=== PATIENT | male | born 1935 | race Caucasian/White ===

== ENCOUNTER 2023-12-12 17:34 | Inpatient (IN) | payer MEDICARE, SELFPAY ==
[2023-12-12 17:42] VITALS: BP 129/79; PULSE 62; RESP 14; TEMP 36.2; O2SAT 95; BMI 25.9
--- NOTE | 2023-12-12 18:56 | HP.PCM_ITS ---
HPI - General General Date of Admission: 12/12/23 Date of Service: 12/12/23 Chief Complaint: Here for rehabilitation. HPI Narrative GONZALEZ MENDIETA, is a 88 Male who presents with followin12/01/2023 [facility]. Transfer from [facility]. Fell 3 feet onto concrete, stepped in hole. On coumadin for chronic atrial fibrillation. C2 fracture, ondontoid fracture, sternal fracture. CTA neck negative for vascular injury. Pain control, bowel regimen. Consult Neurosurgery, hold coumadin in case of surgery. 12/09/2023 INR 5.4, Hold coumadin, follow INR. Pre-CERT for SNF. 12/10/2023 Right hand weakness 2/2 cervical collar. Hold coumadin. 12/11/2023 Right upper extremity weakness improving daily. MRI cervical spine showed impingement of dorsal aspect of cord with cord edema. Too high risk for surgery, treated with hard C collar ([employer] [place] J). Hold coumadin, monitor INR. Diet per ST. Pre-CERT for SNF. 12/12/2023 STAT CTA abdomen/pelvis with bilateral lower extremity runoff for cold bilateral lower extremities. CTA showed right femoral AV fistula. CTA showed left femoral/iliac veins chronic thrombus or mixing artifact. 12/12/2023 Admit to TCU with debility, here for rehabilitation, strengthening, prior to discharge home alone. [facility] Medical History (Updated 12/12/23 @ 19:[address] Nikolai Ceballos MD) Urinary retention Hypothyroidism Osteoporosis Hyperlipidemia Coronary artery disease Atrial fibrillation Mitral regurgitation Right arm weakness Sternal fracture Odontoid fracture Closed C2 fracture Fall Debility Home Medications ?Medication ?Instructions ?Recorded ?Last Taken ?Type Lactobacillus acidophilus 10 mg PO DAILY supplement 12/12/23 Unknown History (Acidophilus capsule) acetaminophen 325 mg tablet 650 mg PO Q6H pain 12/12/23 Unknown History alendronate 70 mg tablet 70 mg PO QWEEK bone health 12/12/23 Unknown History ascorbic acid (vitamin C) 500 mg 500 mg PO DAILY supplement 12/12/23 Unknown History capsule aspirin 81 mg chewable tablet 1 tab PO DAILY heart health 12/12/23 Unknown History calcium citrate 500 mg PO BID supplement 12/12/23 Unknown History cholecalciferol (vitamin D3) 25 25 mcg PO DAILY supplement 12/12/23 Unknown History mcg (1,000 unit) capsule dexamethasone 1 mg tablet 0.5 mg PO DAILY inflammation 12/12/23 Unknown History dexamethasone 2 mg tablet 2 mg PO BID inflammation 12/12/23 Unknown History dexamethasone 2 mg tablet 2 mg PO DAILY inflammation 12/12/23 Unknown History dexamethasone 2 mg tablet 4 mg PO BID inflamation 12/12/23 Unknown History dexamethasone 2 mg tablet 4 mg PO TID inflamation 12/12/23 Unknown History glucosamine sulfate 500 mg tablet 500 mg PO DAILY supplement 12/12/23 Unknown History (Glucosamine) multivitamin (Daily Multi-Vitamin 1 tab PO DAILY supplement 12/12/23 Unknown History tablet) oxycodone 5 mg tablet 5 mg PO Q6H PRN pain 1-10 12/12/23 Unknown History propafenone 225 mg tablet 225 mg PO TID AFIB 12/12/23 Unknown History saw palmetto 500 mg capsule 500 mg PO DAILY supplement 12/12/23 Unknown History simvastatin 10 mg tablet 5 mg PO QHS cholesterol 12/12/23 Unknown History turmeric 400 mg capsule 400 mg PO DAILY supplement 12/12/23 Unknown History vit C 250 mg-vit E 200 unit-zinc 2 cap PO BID supplement 12/12/23 Unknown History ox 12.5 oj-siewds-libyce-zeax capsule vitamin B complex (Vitamins B 1 cap PO DAILY supplement 12/12/23 Unknown History Complex capsule) vitamin E 100 unit capsule 201 mg PO DAILY supplement 12/12/23 Unknown History warfarin 4 mg tablet 4 mg PO DAILY AFIB 12/12/23 Unknown History Allergy/AdvReac Type Severity Reaction Status Date / Time Penicillins Allergy Mild Rash Verified 12/12/23 17:44 Family History (Updated 12/12/23 @ 19:[address] Nikolai Ceballos MD) Sister Cancer Brother CAD (coronary artery disease) Brother CAD (coronary artery disease) Brother Diabetes Brother CAD (coronary artery disease) Surgical History (Updated 12/12/23 @ 19:[address] Nikolai Ceballos MD) History of coronary angioplasty History of vasectomy History of cataract surgery History of resection of large bowel Social History (Updated 12/12/23 @ 19:[address] Nikolai Ceballos MD) household members: none Smoking Status: Never smoker alcohol intake: never substance use type: does not use ROS Constitutional Constitutional: Reports weakness; Denies chills, fever(s) or weight gain ENT HEENT: Denies headache(s), nasal congestion or nasal discharge Cardiovascular Cardiovascular: Denies chest pain or palpitations Respiratory/Chest Respiratory/Chest: Denies cough, excessive phlegm production or shortness of breath with exertion Gastrointestinal Gastrointestinal: Denies abdominal pain, nausea or vomiting Genitourinary Genitourinary: Denies dysuria Musculoskeletal Musculoskeletal: Denies joint pain or joint swelling Integumentary Integumentary: Denies rash or wounds Neurologic Neurologic: Denies focal weakness, numbness or tingling Psychiatric Psychiatric: Reports anxiety and depression; Denies auditory hallucinations, homicidal ideation or suicidal ideation Vital Signs Vital Signs Vital Signs: 12/12/23 17:42 Temperature 97.1 F L Temperature Source Temporal Pulse Rate 62 Respiratory Rate 14 Blood Pressure 129/79 H Blood Pressure Mean 95 Blood Pressure Source Monitor Pulse Ox 95 Oxygen Delivery Method Room Air Weight Weight: 82.1 kg Body Mass Index (BMI) 25.9 Physical Exam Const alert General Appearance: cooperative HEENT normocephalic Eyes PERRL and EOMs intact bilaterally Neck supple, no JVD and no carotid bruits Neck Narrative: [employer] [place] J Collar. Resp normal respiratory effort, normal air movement and clear to auscultation bilaterally Cardio regular rate and regular rhythm GI normal to inspection, nondistended, normoactive bowel sounds, non-tender and non-distended Bladder / Kidney Exam: catheter in place urethral Extremity normal capillary refill General Extremity: Negative for edema Skin no rashes or lesions noted General Skin Exam: no breakdown Psych affect normal Appearance: appropriate Assessment & Plan Assessment/Plan (1) Debility: (2) Fall: (3) Closed C2 fracture: (4) Odontoid fracture: (5) Sternal fracture: (6) Right arm weakness: (7) Mitral regurgitation: (8) Atrial fibrillation: (9) Coronary artery disease: (10) Hyperlipidemia: (11) Osteoporosis: (12) Hypothyroidism: (13) History of cataract surgery: (14) Urinary retention: PLAN: Plan 88 year old male with below past medical history hospitalized for C2 fracture, odontoid fracture, sternal fracture, treated non-surgically with [employer] J Collar, complicated by right upper extremity weakness, urinary retention requiring ghosh, admitted to TCU with debility, here for rehabilitation, strengthening, prior to discharge home alone. * Debility - PT/OT. * Dysphagia - ST. * Pain - Tylenol 650mg q6, Tramadol 50mg q6 prn pain (1-5), Oxycodone 5mg q4 prn pain (6-10). * Bowel - senna/colace 2 tablets bid, Magnesium citrate 300ml po daily prn. * Adult immunization - Administer pneumonia vaccine, covid vaccine, flu vaccine as appropriate. * DVT prophylaxis - on warfarin. * Osteoporosis - Alendronate 70mg qweek. * Vitamin C deficiency - Vitamin C 500mg daily. * Hyperlipidemia - Atorvastatin 5mg qhs. * Calcium deficiency - TUMS 500mg bidcm. * Vitamin D deficiency - D3 25mcg daily. * C2 fracture/odontoid fracture/cervical spinal cord impingement - Dexamethasone taper, [employer] J Collar. * GI prophylaxis - Lactobacillus 1 capsule daily * Nutrition - MVI 1 tablet daily. * Atrial fibrillation - Propafenone 225mg tid, Warfarin 4mg daily, monitor INR. * Macular degeneration - Healthy Eye 2 capsules bid. * Vitamin B deficiency - Vitamin B complex 1 tablet daily. * Vitamin E deficiency - Vitamin E 400IU daily. * BPH - Add Tamsulosin 0.4mg daily, indwelling ghosh catheter, voiding trials later.
[2023-12-12 19:45] VITALS: PULSE 58; RESP 18; O2SAT 95
[2023-12-12] MEDS: Acetaminophen 325 MG Tablet 650 MG PO (20:27)
[2023-12-12] MEDS: oxyCODONE 5 MG Tablet PO (20:27)
[2023-12-12] MEDS: Senna/Docusate Sodium 1 Tablet 2 TABLET PO (20:36)
[2023-12-12] MEDS: Propafenone 150 MG Tablet 225 MG PO (20:36)
[2023-12-12] MEDS: dexAMETHasone 4 MG Tablet PO (20:37)
[2023-12-12] MEDS: Atorvastatin Calcium 10 MG Tablet 5 MG PO (20:37)
[2023-12-12] MEDS: Menthol/Lanolin/Calamine/Znox 113 GM Tube 1 APPLIC TOPICAL (20:54)
[2023-12-12] MEDS: traMADol 50 MG Tablet PO (22:11)
[2023-12-13] MEDS: oxyCODONE 5 MG Tablet PO ×4 (03:59→20:24)
[2023-12-13] MEDS: Acetaminophen 325 MG Tablet 650 MG PO ×4 (03:59→21:37)
[2023-12-13 06:08] LABS: International Normalized Ratio 2.1; Prothrombin Time (Protime)PT. 23.8 SECONDS (11.7-14.9)
[2023-12-13] MEDS: dexAMETHasone 4 MG Tablet PO ×3 (06:18→21:39)
[2023-12-13] MEDS: Propafenone 150 MG Tablet 225 MG PO ×3 (06:18→21:38)
[2023-12-13] MEDS: Magnesium Citrate 300 ML PO (06:21)
--- NOTE | 2023-12-13 08:03 | PHA.CONS_ITS ---
Documented by User: Neetu Hines 12/13/23 08:55 TCU RX Drug Regimen Review Subjective/Objective Subjective/Objective: Subjective: TCU Admission. 88 YOM presented to outside hospital after a fall onto concrete. Hospitalized for C2 fracture, odontoid fracture, sternal frac ture, treated non-surgically with [place] J Collar, complicated by right upper extremity weakness, urinary retention requiring ghosh. Admitted to TCU with debility for strengthening and rehabilitation. Objective: Allergies Penicillins Allergy (Mild, Verified 12/12/23 17:44) Rash Current Medications Generic Name Dose Route Start Last Admin Trade Name Freq PRN Reason Stop Dose Admin Acetaminophen 650 mg 12/12/23 22:00 12/13/23 03:59 Acetaminophen 325 Mg Tablet PO 650 mg Q6H SYDNI Administration Alendronate Sodium 70 mg 12/17/23 06:00 Alendronate Sodium 70 Mg Tablet PO RITTER@0600 [facility] Ascorbic Acid 500 mg 12/13/23 08:00 Ascorbic [facility] 500 [facility] Atorvastatin Calcium 5 mg 12/12/23 22:00 12/12/23 20:37 Atorvastatin Calcium 10 Mg Tablet PO 5 mg QHS [facility] Administration Calamine/Phenol 1 applic 12/12/23 22:00 12/12/23 20:54 Menthol/Lanolin/Calamine/Znox 113 Gm Tube TOPICAL 1 applic BID [facility] Administration Protocol Calcium Carbonate 500 mg 12/13/23 08:00 Calcium Carbonate 500 [facility] Cholecalciferol 25 mcg 12/13/23 08:00 Cholecalciferol (Vit D3) 25 Mcg Tablet (1,000 Units) [facility] Dexamethasone 0.5 mg 12/20/23 08:00 Dexamethasone 0.5 Mg Tablet PO 12/21/23 08[facility] Dexamethasone 4 mg 12/12/23 22:00 12/13/23 06:18 Dexamethasone 4 Mg Tablet PO 12/13/23 22:01 4 mg TID SYDNI Administration Dexamethasone 4 mg 12/14/23 08:00 Dexamethasone 4 Mg Tablet PO 12/15/23 17:01 BIDCM [facility] Dexamethasone 2 mg 12/16/23 08:00 Dexamethasone 4 Mg Tablet PO 12/17/23 [facility] Dexamethasone 2 mg 12/18/23 08:00 Dexamethasone 4 Mg Tablet PO 12/19/23 08:[facility] Magnesium Citrate 300 ml 12/12/23 19:24 12/13/23 06:21 Magnesium Citrate 300 Ml PO 300 ml DAILY PRN Administration Constipation Multivitamins 1 tablet 12/13/23 08:00 Multivitamins,Therapeutic [facility] Multivitamins 1 cap 12/13/23 08:00 Vitamin B Comp W-C [facility]apsule [facility] Multivitamins/Minerals 1 cap 12/13/23 08:00 Multivitamin (Healthy Eyes) [facility]apsule [facility] Oxycodone HCl 5 mg 12/12/23 19:25 12/13/23 03:59 Oxycodone 5 Mg Tablet PO 5 mg Q4H PRN PRN Administration Pain Score 6-10 or Pre PT/OT Propafenone HCl 225 mg 12/12/23 22:00 12/13/23 06:18 Propafenone 150 Mg Tablet PO 225 mg TID [facility] Administration Senna/Docusate Sodium 2 tablet 12/12/23 22:00 12/12/23 20:36 Senna/Docusate Sodium 1 Tablet PO 2 tablet BID [facility] Administration Sodium Chloride 10 - 40 ml 12/12/23 17:52 0.9% Saline Lock 10 Ml Syringe IV UD PRN SALINE FLUSH Tamsulosin HCl 0.4 mg 12/13/23 17:30 Tamsulosin Hcl 0.4 Mg Capsule PO DAILY@1730 [facility] Tramadol HCl 50 mg 12/12/23 19:24 12/12/23 22:11 Tramadol 50 Mg Tablet PO 50 mg Q6H PRN PRN Administration Pain Score 1-5 or Pre PT/OT Tuberculin PPD 0.1 ml 12/13/23 10:00 Tuberculin,Purif.Prot.Deriv. 50 Tu/Ml Vial ID 12/13/23 10:01 X1 ONE Tuberculin PPD 0.1 ml 12/20/23 10:00 Tuberculin,Purif.Prot.Deriv. 50 Tu/Ml Vial ID 12/20/23 10:01 X1 ONE Vitamin E 400 units 12/13/23 08:00 Vitamin E 400 Units [facility] Warfarin Sodium 4 mg 12/13/23 17:00 Warfarin 4 Mg Tablet PO DINNER [facility] Problem List Urinary retention (Acute) History of cataract surgery (Acute) Hypothyroidism (Acute) Osteoporosis (Acute) Hyperlipidemia (Acute) Coronary artery disease (Acute) Atrial fibrillation (Acute) Mitral regurgitation (Acute) Right arm weakness (Acute) Sternal fracture (Acute) Odontoid fracture (Acute) Closed C2 fracture (Acute) Fall (Acute) Debility (Acute) Vital Signs Temp Pulse Resp BP Pulse Ox O2 Del Method 97.1 F L 58 L 18 129/79 H 95 Room Air 12/12/23 17:42 12/12/23 19:45 12/12/23 19:45 12/12/23 17:42 12/12/23 19:45 12/12/23 19:45 Oxygen Delivery Method Room Air Weight: 82.1 kg Body Mass Index (BMI) 25.9 Assessment/Plan: 1. Pain: acetaminophen 650mg PO Q6, tramadol 50mg PO Q6H PRN pain 1-5 and oxycodone 5mg PO Q4H PRN pain 6-10. Resident has had 1 dose of tramadol for pain score of 5 in the neck and 2 doses of oxycodone for pain scores of 6-7 in the neck. Please continue to monitor for increased pain, PRN usage, constipation, respiratory depression and renal function (no SCr at this time). 2. Bowel: senna/docusate 2T PO BID and magnesium citrate 300mL PO daily PRN constipation. Resident has had 1 dose of magnesium citrate. Last documented bowel movement was 12/06. Please continue to monitor for constipation and PRN usage. 3. C2 fractures/odontoid fracture/cervical spinal cord impingement: dexamethasone taper. Please continue to monitor glucose (none yet), S/S of infection, upset stomach, agitation and increased hunger. 4. Atrial fibrillation: propafenone 225mg PO TID and warfarin 4mg PO dinner. Please continue to monitor (BP 129/79), HR (last 58), S/S of bleeding, INR (last 2.1). 5. Osteoporosis: alendronate 70mg PO weekly. Please continue to monitor for GI side effects, jaw pain, renal function and BMD. Please administer first thing in the morning on an empty stomach with a full glass of water and remain upright for 30 minutes after dose. 6. Hyperlipidemia: atorvastatin 5mg PO QHS. Please consider ordering a lipid panel as there is no panel in the chart. Thanks. Please continue to monitor for muscle pain. 7. BPH: tamsulosin 0.4mg PO daily. Please continue to monitor BP. 8. GI prophylaxis/nutrition/macular degeneration: lactobacillus 1C PO daily, multivitamin 1T PO daily and healthy eye 1C PO BID. Please continue to monitor. 9. Calcium/vitamin C/D/B/E deficiencies: ascorbic acid 500mg PO daily, cholecalciferol 25mcg PO daily, calcium carbonate 500mg PO BIDCM, vitamin B complex 1T PO daily and vitamin E 400units PO daily. Please consider ordering a vitamin D level and calcium as there are no levels in the chart. Thanks. Assessment/Plan for indications treated with psychotropic medications: None Medical chart and medication regimen reviewed. The following medication irregularities or issues were identified: 1. Cholecalciferol 25mcg PO daily, calcium carbonate 500mg PO BIDCM. Please consider ordering a vitamin D level and calcium as there are no levels in the chart. Thanks. 2. Atorvastatin 5mg PO QHS. Please consider ordering a lipid panel as there is no panel in the chart. Thanks. Date Date of Note:: 12/13/23 Documented by User: Dr. Nikolai Ceballos MD 12/13/23 08:55 TCU RX Drug Regimen Review Provider Comments Provider responsibility Provider Comments to Recommendations by Pharmacy: Agree
[2023-12-13] MEDS: Multivitamin (Healthy Eyes) Capsule 1 CAP PO ×2 (08:14→17:44)
[2023-12-13] MEDS: Vitamin B Comp W-C Capsule 1 CAP PO (08:15)
[2023-12-13] MEDS: Cholecalciferol (VIT D3) 25 MCG TABLET (1,000 UNITS) PO (08:15)
[2023-12-13] MEDS: Lactobacillis Acidophilus 1 CAP PO (08:15)
[2023-12-13] MEDS: Multivitamins,Therapeutic Tablet 1 TABLET PO (08:15)
[2023-12-13] MEDS: Ascorbic Acid 500 MG Tablet PO (08:15)
[2023-12-13] MEDS: Calcium Carbonate 500 MG Tablet PO ×2 (08:15→17:44)
[2023-12-13] MEDS: Senna/Docusate Sodium 1 Tablet 2 TABLET PO ×2 (08:15→21:37)
[2023-12-13] MEDS: Vitamin E 400 UNITS Capsule PO (08:15)
[2023-12-13] MEDS: Menthol/Lanolin/Calamine/Znox 113 GM Tube 1 APPLIC TOPICAL ×2 (08:17→21:36)
[2023-12-13 08:26] VITALS: BP 115/87; PULSE 104; RESP 16; TEMP 36.1; O2SAT 93
[2023-12-13 08:53] LABS: Hematocrit 50.5 % (40-54); Hemoglobin 17.1 g/dL (13.0-16.5); Mean Corp Hgb Conc 33.9 g/dL (32-36); Mean Corpuscular Hgb 32.7 pg (27.0-32.0); Mean Corpuscular Volume 96.6 fL (80-94); Mean Platelet Vol. 10.7 fl (6.2-12.0); POSITIVE COUNT YES; POSITIVE DIFFERENTIAL YES; POSITIVE MORPHOLOGY YES; Platelet Count 274 K/mm3 (150-450); RBC Distribution Width CV 12.6 % (11.6-14.6); RBC Distribution Width SD 44.4 fl (35.1-43.9); Red Blood Count 5.23 M/mm3 (4.6-6.2); White Blood Count 24.3 K/mm3 (4.4-11.0)
[2023-12-13 08:54] LABS: Differential Indicated MANUAL DIFF
[2023-12-13 09:14] LABS: Anion Gap 8 (5-15); BUN 42 mg/dL (7-18); BUN/Creat Ratio 50.5 RATIO (10-20); Calcium,Total 9.1 mg/dL (8.5-10.1); Chloride 106 mmol/L (98-107); Creatinine, Serum 0.83 mg/dL (0.70-1.30); EST Glomerular Filtration Rate 93 mL/min (>60); Est Glom Filt Rate - Afr Amer 112 mL/min (>60); Estimated Creatinine Clearance 63.52 ml/min; Glucose 174 mg/dL (74-106); Potassium 4.7 mmol/L (3.5-5.1); Sodium Level 137 mmol/L (136-145)
[2023-12-13 09:40] LABS: Eosinophil 2 % (0-5); Lymphocyte 9 % (19-41); Metamyelocyte 2 % (0-1); Monocyte 6 % (0-10); Neutrophil-Band 1 % (0-5); Neutrophil-Segmented 80 % (47-70); Platelet Estimate ADEQUATE (ADEQ); Red Cell Morphology NORM C+C NORMAL (NORM C&C); Total Cells Counted 100 (MANUAL DIFF)
[2023-12-13 09:41] LABS: Absolute Neutrophil Count 19.7 X10^3/uL (2.0-7.7)
[2023-12-13] MEDS: Tuberculin,Purif.prot.deriv. 50 TU/ML Vial 0.1 ML ID (10:04)
[2023-12-13] MEDS: traMADol 50 MG Tablet PO ×2 (10:07→18:28)
--- NOTE | 2023-12-13 14:50 | NURSING ---
Field Service Poultry Technician Note; Activity Asset: Yordan Gomes is independent in his choice of daily activities. He has a smartphone he uses for music, reading the newspaper talking with family/friends and games. He at this time has a neck braces and has a harder time using it but will when feeling better. He welcomes visits from propagator laborer when available. Staff will remind him of weekly activities and respect his right to say no.
[2023-12-13] MEDS: Tamsulosin HCl 0.4 MG Capsule PO (17:44)
--- NOTE | 2023-12-13 20:37 | NURSING ---
Addendum entered by Lay Siddiqi 12/14/23 07:03: Dtr Salo reported patient was recently on palliative care but they weren't aggressive enough. Salo reported patient spouse 1 year ago. Original Note: daughter salo at bedside, patient c/o 12/13 neck pain, repositioned x2 staff assist to promote comfort, PRN Oxy for pain management per pt. request. Patient c/o abdominal distention and nausea, LBM 12/06, mag citrate ineffective. Per Dr. Tucker lucia enema x1
[2023-12-13] MEDS: Atorvastatin Calcium 10 MG Tablet 5 MG PO (21:38)
--- NOTE | 2023-12-13 21:50 | NURSING ---
Spoke w/ Dr. Ceballos via phone after resident had an xlg liquid brown emesis that appeared to be stomach contents along w/ the two small spoonfuls of crushed meds. Vitals obtained and recorded. In moderate distress. oriented x 3, drowsy. Rhonchi to lt base, rt base clear but diminished, b/l upper lobes clear anterior and posterior. Some belching and hiccups noted after emesis. Calixto cath to CD. Urine batsheva, clear. Abdomen firm, distended. Slightly hypoactive BS x 4 quads. Passed an xlg liquid and pasty stool after enema administered. New orders received and read back to repeat CBC w/ Diff, BMP, UA and C+S, repeat KUB, CXR PA and lat, NS at 75 ml/hr, Dilaudid 0.5mg IV every 2 hours PRN pain 1-10, and Phenergan 25 mg IV preferred but may give IM as system only permits IM, PO, and rectal routes. Will continue to monitor.
[2023-12-13 22:00] VITALS: PULSE 78; RESP 16; O2SAT 93
[2023-12-14] MEDS: oxyCODONE 5 MG Tablet PO ×2 (00:32→13:15)
[2023-12-14 01:38] LABS: Vitamin D,25 Hydroxy 39.3 ng/mL
[2023-12-14] MEDS: Acetaminophen 325 MG Tablet 650 MG PO ×3 (04:13→15:59)
[2023-12-14 04:20] VITALS: PULSE 77; RESP 18; O2SAT 95
[2023-12-14] MEDS: Propafenone 150 MG Tablet 225 MG PO ×2 (05:03→13:15)
--- NOTE | 2023-12-14 07:42 | RAD_ITS ---
EXAM: XR ABDOMEN, 1 VIEW CLINICAL INDICATION: Constipation. TECHNIQUE: Frontal supine view of the abdomen/pelvis. COMPARISON: No relevant prior studies available. FINDINGS: GASTROINTESTINAL TRACT: Prominent diffuse gaseous distention of the large and small bowel noted as well as moderate stool burden within the rectum and large bowel. Rectal impaction to be considered. ORGANS: No organomegaly. BONES/JOINTS: No acute abnormality. RAD/Abdomen Single View IMPRESSION: Question rectal impaction. Electronically Signed: Amilcar Theodore MD at 16:34 EDT ,
[2023-12-14 08:41] VITALS: BP 123/84; PULSE 75; RESP 16; TEMP 36; O2SAT 94
[2023-12-14] MEDS: Multivitamin (Healthy Eyes) Capsule 1 CAP PO ×2 (08:45→15:59)
[2023-12-14] MEDS: Vitamin B Comp W-C Capsule 1 CAP PO (08:45)
[2023-12-14] MEDS: Multivitamins,Therapeutic Tablet 1 TABLET PO (08:45)
[2023-12-14] MEDS: dexAMETHasone 4 MG Tablet PO ×2 (08:45→15:59)
[2023-12-14] MEDS: Cholecalciferol (VIT D3) 25 MCG TABLET (1,000 UNITS) PO (08:45)
[2023-12-14] MEDS: Calcium Carbonate 500 MG Tablet PO ×2 (08:46→15:59)
[2023-12-14] MEDS: Vitamin E 400 UNITS Capsule PO (08:46)
[2023-12-14] MEDS: Ascorbic Acid 500 MG Tablet PO (08:46)
[2023-12-14] MEDS: Senna/Docusate Sodium 1 Tablet 2 TABLET PO (08:46)
[2023-12-14] MEDS: Lactobacillis Acidophilus 1 CAP PO (08:46)
[2023-12-14] MEDS: traMADol 50 MG Tablet PO ×2 (08:51→16:02)
[2023-12-14] MEDS: Menthol/Lanolin/Calamine/Znox 113 GM Tube 1 APPLIC TOPICAL (08:51)
[2023-12-14] MEDS: Lactulose 20 GM/30 ML UDC 200 GM RC (10:28)
--- NOTE | 2023-12-14 10:56 | NURSING ---
Addendum entered by Kandy Weller 12/14/23 13:54: pt had xlg results liquid mixed with some pastey stool, pt assisted to BSC, has some more pt unable to tell if he is going. assisted to recliner chair, call light in reach. Original Note: pt given lactulose enema, tolerated some, approx 500cc of 700cc. pt was able to hold for approx 20 minutes. called out and placed pt on bedpan at this time.
[2023-12-14] MEDS: NYSTATIN 500,000 UNIT/5 ML UDC 500000 UNIT PO ×2 (11:22→16:00)
--- NOTE | 2023-12-14 13:34 | CASEMGMT ---
Social Work SW met with patient to complete initial assessment. Introduced self and role. Verified contacts. Confirmed code status as DNR-CCA, no intubation. SW requested dtr provide copies of advanced directives. Educated to [facility] insurance with NRD 12/17 and continued stay is not guaranteed with each review. Pt's goal is to return home, though likely will need an interim DC plan. SW will continue to follow for DC planning assistance. Eulalia Marin, RECLAMATION WORKER LUNG PULLER
[2023-12-14 13:55] LABS: Pathologist Review Reviewed
--- NOTE | 2023-12-14 15:31 | CASEMGMT ---
Social Work Nursing notified this worker that pt was asking about hospice services. SW spoke with pt at bedside. Pt resting in his chair, kept his eyes closed for the majority of the conversation. SW explored pt's feelings, goals of care and wishes. pt expressed being in a lot of pain and not sure how to navigate the pain or wanting to keep going through this. SW acknowledged the drastic change in medical and functional status from prior to the fall. Validated pt's feelings and the hardship with needing to rely on others for simple, daily tasks. Pt confirmed and repeated being in pain. SW referenced comment pt made during SW initial assessment of not wanting oxycodone to relieve pain. Pt stated he ended up having the nurse give him one, but it didn't help take all the pain away. SW offered to communicate to the Dr about additional interventions. pt replied that he does not want morphine. SW explored reasoning. Pt explained it made me crawl the ba last time, which was about 6 mos ago. SW discussed nonpharmacological interventions, such as pain or heat. Pt denied. SW to communicate with Dr on other options, but inquired to pt if pain is controlled, would he want to still discuss hospice. Pt stated it depends on how I feel. talk to my dtr. SW confirmed and offered to revisit with pt tomorrow after interventions are implemented. Assured pt this worker will assist in executing his wishes. Pt appreciative. SW inquired if pt enjoys listening to music. Pt confirmed and enjoys gospel or Spiritism music. SW offered to get CD player with music at his bedside, which may also help relax pt and distract him from the pain. Pt agreed. SW returned with CD player and turned on the music. Pt appreciative. SW phoned dtr, Hannah, to discuss above interaction. Dtr explained pt has not been able to move his bowels, which likely may be contributing to his discomfort. SW acknowledged nursing has been giving interventions to assist with moving his bowels. SW inquired about previous discussions for hospice. Dtr explained at [facility] the team discussed palliative vs hospice, but at that time pt was not ready for hospice and agreed to palliative. Dtr explained the hospital moved pt to their palliative floor' but dtr did not feel that unit provided any additional services for pt. Dtr unsure if an outpatient palliative referral was made or is following pt. Dtr noted that was about two weeks ago, acknowledged pt's condition has changed. Dtr stated pt is aware of what hospice services consist of, as his late- was on hospice. Dtr also discussed depression, though stated pt would never admit he is depressed. ELI acknowledged depression is common with such a change in his functional abilities and considering all of the loss he experienced over the last year. Dtr did confirm pt has been attending the [facility] and was doing well overall prior to the fall. ELI explained this worker will follow up with pt tomorrow after interventions have been implemented to see what pt's wishes are at that time, and will discuss depression with pt further. Dtr appreciative. ELI left written communication for Dr. BENITEZ will continue to follow. VINI SherW
[2023-12-14] MEDS: Tamsulosin HCl 0.4 MG Capsule PO (15:59)
[2023-12-14] MEDS: SimETHICONE 80 MG Chewable Tablet PO (18:37)
--- NOTE | 2023-12-14 19:38 | NURSING ---
dr parkinson noitified of uncontrolled pain & lactulose enema results. new orders for oxyir 10mg, tylenol increased, simethicone added. PRN ativan for restlessness/anxiety
[2023-12-14 21:45] VITALS: BP 135/98; PULSE 66; RESP 16; TEMP 36.3; O2SAT 93
--- NOTE | 2023-12-14 21:56 | RAD_ITS ---
STUDY: X-RAY CHEST REASON FOR EXAM: Male, 88 years old. Adventitious lung sounds, emesis TECHNIQUE: Frontal and lateral views of the chest. COMPARISON: None. FINDINGS: The lungs are clear and expanded. There is no demonstrated pleural abnormality. Normal size heart. Normal mediastinum and alberto. Normal visualized pulmonary arteries. Normal visualized aortic arch and descending thoracic aorta. There are diffuse degenerative changes of the visualized thoracic spine. Normal visualized ribs, clavicles, and shoulders. There is no demonstrated abnormality of the visualized soft tissue structures of the upper abdomen. RAD/Chest PA and Lateral IMPRESSION: Normal x-ray examination of the chest. Electronically Signed: Bhavik Pacheco MD at 23:12 EDT ,
--- NOTE | 2023-12-14 21:57 | RAD_ITS ---
STUDY: X-RAY - ABDOMEN/PELVIS REASON FOR EXAM: Male, 88 years old. Possible rectal impaction, emesis TECHNIQUE: Single AP view of the abdomen / pelvis. COMPARISON: None. FINDINGS: Normal visualized lung bases. There is gaseous distention of the colon, most compatible with a colonic ileus. No significant fecal retention. There is no demonstrated free abdominal air. The visualized liver, spleen and kidneys are grossly normal in size and morphology. Normal soft tissue structures. Normal visualized osseous structures. RAD/Abdomen Single View IMPRESSION: Findings most consistent with severe colonic ileus. Electronically Signed: Bhavik Pacheco MD at 23:08 EDT ,
[2023-12-14 22:18] LABS: Absolute Lymphocyte Count 0.91 X10^3/uL (0.83-4.51); Absolute Neutrophil Count 21.7 X10^3/uL (2.0-7.7); Basophil# 0.14 X10^3/uL; Basophil% 0.6 % (0-1); Hematocrit 50.4 % (40-54); Hemoglobin 16.9 g/dL (13.0-16.5); Lymphocyte # 0.91 X10^3/ul (0.83-4.51); Lymphocyte % 3.6 % (19-41); Mean Corp Hgb Conc 33.5 g/dL (32-36); Mean Corpuscular Hgb 31.9 pg (27.0-32.0); Mean Corpuscular Volume 95.3 fL (80-94); Monocyte# 1.49 X10^3/uL; Monocyte% 5.9 % (0-10); NRBC Flagged by Analyzer 0 % (0-5); Neutrophil # 21.67 X10^3/uL (2.7-7.7); Neutrophil % 85.8 % (47-70); POSITIVE DIFFERENTIAL YES; Platelet Count 278 K/mm3 (150-450); RBC Distribution Width CV 12.5 % (11.6-14.6); RBC Distribution Width SD 43.1 fl (35.1-43.9); Red Blood Count 5.29 M/mm3 (4.6-6.2); White Blood Count 25.2 K/mm3 (4.4-11.0)
[2023-12-14 22:21] LABS: Differential Indicated SCAN CRITERIA MET
[2023-12-14 22:38] LABS: Anion Gap 10 (5-15); BUN 43 mg/dL (7-18); BUN/Creat Ratio 44.2 RATIO (10-20); Calcium,Total 9.5 mg/dL (8.5-10.1); Chloride 101 mmol/L (98-107); Creatinine, Serum 0.97 mg/dL (0.70-1.30); EST Glomerular Filtration Rate 77 mL/min (>60); Est Glom Filt Rate - Afr Amer 94 mL/min (>60); Estimated Creatinine Clearance 54.35 ml/min; Glucose 225 mg/dL (74-106); Potassium 5.1 mmol/L (3.5-5.1); Sodium Level 133 mmol/L (136-145)
[2023-12-14 23:04] LABS: Squamous Epithelial Cells - UA 0 SEEN /hpf (0-5)
[2023-12-14 23:04] LABS: Differential Comment SCANNED
[2023-12-14] MEDS: 0.9% Normal Saline (1000mL) 1,000 ML 75 ML IV (23:10)
[2023-12-14 23:14] LABS: Color, Urine Red (Yellow); Glucose, Dipstick Normal (Normal); Ketone-Dipstick 5 mg/dl (Negative); Leukocyte Esterase-Dipstick 500 /ul (Negative); Nitrite-Dipstick Positive (Negative); Occult Blood-Urine 250 /ul (Negative); Protein-Dipstick 100 mg/dl (Negative); Specific Gravity, Urine 1.025 (1.002-1.030); Urine Bilirubin Dipstick Negative (Negative); Urine Clarity Cloudy (Clear); Urine Urobilinogen 4 mg/dl (Normal)
[2023-12-14 23:23] LABS: Bacteria 1+ /hpf (None Seen); Mucous, Urine 1+ /hpf (<or=2+); Red Blood Cells-Urine 25-50 SEEN /hpf (0-5); Transitional Epithelial - Ur 0-5 SEEN /hpf (0-5); White Blood Cells 25-50 SEEN /hpf (0-5)
--- NOTE | 2023-12-14 23:25 | NURSING ---
Spoke w/ Dr. Ceballos via phone to update on results of KUB, CXR, and informed that UA had several significant abnormalities. New order received and read back to send resident to ED. Phone call placed to ED and report given to BOB Frias. [id number]: Phone call placed to daughter, Hannah, and received identifiable vm. Left vm to contact TCU and given contact info. No specific medical information provided in vm.
--- NOTE | 2023-12-14 23:44 | NURSING ---
Secure Backline message sent to [employer] and GABRIELA Ferrari, to update on transfer to ED.
--- NOTE | 2023-12-15 07:44 | DS.PCM_ITS ---
Providers Date of Admission: 12/12/23 Primary Care Physician: Dr. Rayo Lanza MD Consultations 12/13/23 07:23 Consult: Vascular Surgery Routine Consulting Provider: Coretta Gomez Reason for Consult: Right femoral AV fistula. EMERGENT Consult: No MD Notified: Yes Date Notified: 12/13/23 Time Notified: 07:23 Method of Notification: Verbal Reason For Visit: FALL, CERVICAL FX, STERNAL FX Diagnosis Discharge Diagnosis (1) Debility: Status: Acute Code(s): R53.81 - Other malaise (2) Fall: Status: Acute Code(s): W19.XXXA - Unspecified fall, initial encounter (3) Closed C2 fracture: Status: Acute Code(s): S12.100A - Unspecified displaced fracture of second cervical vertebra, initial encounter for closed fracture (4) Odontoid fracture: Status: Acute Code(s): S12.110A - Anterior displaced Type II dens fracture, initial encounter for closed fracture (5) Sternal fracture: Status: Acute Code(s): S22.20XA - Unspecified fracture of sternum, initial encounter for closed fracture (6) Right arm weakness: Status: Acute Code(s): R29.898 - Other symptoms and signs involving the musculoskeletal system (7) Mitral regurgitation: Status: Acute Code(s): I34.0 - Nonrheumatic mitral (valve) insufficiency (8) Atrial fibrillation: Status: Acute Code(s): I48.91 - Unspecified atrial fibrillation (9) Coronary artery disease: Status: Acute Code(s): I25.10 - Atherosclerotic heart disease of [place] coronary artery without angina pectoris (10) Hyperlipidemia: Status: Acute Code(s): E78.5 - Hyperlipidemia, unspecified (11) Osteoporosis: Status: Acute Code(s): M81.0 - Age-related osteoporosis without current pathological fracture (12) Hypothyroidism: Status: Acute Code(s): E03.9 - Hypothyroidism, unspecified (13) History of cataract surgery: Status: Acute Code(s): Z98.49 - Cataract extraction status, unspecified eye (14) Urinary retention: Status: Acute Code(s): R33.9 - Retention of urine, unspecified Plan 88 year old male with below past medical history hospitalized for C2 fracture, odontoid fracture, sternal fracture, treated non-surgically with [place] Collar, complicated by right upper extremity weakness, urinary retention requiring ghosh, admitted to TCU with debility, here for rehabilitation, strengthening, prior to discharge home alone. * Debility - PT/OT. * Dysphagia - ST. * Pain - Tylenol 650mg q6, Tramadol 50mg q6 prn pain (1-5), Oxycodone 5mg q4 prn pain (6-10). * Bowel - senna/colace 2 tablets bid, Magnesium citrate 300ml po daily prn. * Adult immunization - Administer pneumonia vaccine, covid vaccine, flu vaccine as appropriate. * DVT prophylaxis - on warfarin. * Osteoporosis - Alendronate 70mg qweek. * Vitamin C deficiency - Vitamin C 500mg daily. * Hyperlipidemia - Atorvastatin 5mg qhs. * Calcium deficiency - TUMS 500mg bidcm. * Vitamin D deficiency - D3 25mcg daily. * C2 fracture/odontoid fracture/cervical spinal cord impingement - Dexamethasone taper, [place] Collar. * GI prophylaxis - Lactobacillus 1 capsule daily * Nutrition - MVI 1 tablet daily. * Atrial fibrillation - Propafenone 225mg tid, Warfarin 4mg daily, monitor INR. * Macular degeneration - Healthy Eye 2 capsules bid. * Vitamin B deficiency - Vitamin B complex 1 tablet daily. * Vitamin E deficiency - Vitamin E 400IU daily. * BPH - Add Tamsulosin 0.4mg daily, indwelling ghosh catheter, voiding trials later. Medications at Discharge Home Medications Lactobacillus acidophilus (Acidophilus capsule) 10 mg PO DAILY supplement 12/12/23 acetaminophen 325 mg tablet 650 mg PO Q6H pain 12/12/23 alendronate 70 mg tablet 70 mg PO QWEEK bone health 12/12/23 ascorbic acid (vitamin C) 500 mg capsule 500 mg PO DAILY supplement 12/12/23 aspirin 81 mg chewable tablet 1 tab PO DAILY heart health 12/12/23 calcium citrate 500 mg PO BID supplement 12/12/23 cholecalciferol (vitamin D3) 25 mcg (1,000 unit) capsule 25 mcg PO DAILY supplement 12/12/23 dexamethasone 1 mg tablet 0.5 mg PO DAILY inflammation 12/12/23 dexamethasone 2 mg tablet 2 mg PO BID inflammation 12/12/23 dexamethasone 2 mg tablet 2 mg PO DAILY inflammation 12/12/23 dexamethasone 2 mg tablet 4 mg PO BID inflamation 12/12/23 dexamethasone 2 mg tablet 4 mg PO TID inflamation 12/12/23 glucosamine sulfate 500 mg tablet (Glucosamine) 500 mg PO DAILY supplement 12/12/23 multivitamin (Daily Multi-Vitamin tablet) 1 tab PO DAILY supplement 12/12/23 oxycodone 5 mg tablet 5 mg PO Q6H PRN pain 1-10 12/12/23 propafenone 225 mg tablet 225 mg PO TID AFIB 12/12/23 saw palmetto 500 mg capsule 500 mg PO DAILY supplement 12/12/23 simvastatin 10 mg tablet 5 mg PO QHS cholesterol 12/12/23 turmeric 400 mg capsule 400 mg PO DAILY supplement 12/12/23 vit C 250 mg-vit E 200 unit-zinc ox 12.5 on-kjleqz-kjfeyx-zeax capsule 2 cap PO BID supplement 12/12/23 vitamin B complex (Vitamins B Complex capsule) 1 cap PO DAILY supplement 12/12/23 vitamin E 100 unit capsule 201 mg PO DAILY supplement 12/12/23 warfarin 4 mg tablet 4 mg PO DAILY AFIB 12/12/23 Hospital Course Operations None Procedures None Summary of Care Provided Minutes Spent on Discharge: 15 Hospital Course: 88 year old male with below past medical history hospitalized for C2 fracture, odontoid fracture, sternal fracture, treated non-surgically with [place] Collar, complicated by right upper extremity weakness, urinary retention requiring ghosh, admitted to TCU with debility, here for rehabilitation, strengthening, prior to discharge home alone. 12/14/2023 Resident with nausea, vomiting, abdominal distention, constipation. Failed Soap suds enema, Failed Lactulose enema. 12/14/2023 X-ray showed ileus. Discharge to [facility] ED 12/14/2023 for evaluation. Weight / BMI Weight Weight: 82.1 kg Body Mass Index (BMI) 25.9 ABG / Lab / Microbiology Data 12/14/23 22:10 12/14/23 22:10 Laboratory: Laboratory Results - last 24 hr 12/13/23 08:43: Diff Path Review Reviewed 12/14/23 22:10: WBC 25.2 H, RBC 5.29, Hgb 16.9 H, Hct 50.4, MCV 95.3 H, MCH 31.9, MCHC 33.5, RDW Std Deviation 43.1, RDW Coeff of Isabel 12.5, Plt Count 278, MPV 11.0, Immature Gran % (Auto) 4.100 H, Neut % (Auto) 85.8 H, Lymph % (Auto) 3.6 L, [place] % (Auto) 5.9, Eos % (Auto) 0.0, Baso % (Auto) 0.6, Absolute Neuts (auto) 21.7 H, Absolute Lymphs (auto) 0.91, Nucleated RBC % 0, Differential Comment SCANNED, Sodium 133 L, Potassium 5.1, Chloride 101, Carbon Dioxide 22.0, Anion Gap 10, BUN 43 H, Creatinine 0.97, Estim Creat Clear Calc 54.35, Est GFR (MDRD) Af Amer 94, Est GFR (MDRD) Non-Af 77, BUN/Creatinine Ratio 44.2 H, G lucose 225 H, Calcium 9.5 12/14/23 : Urine Color Red, Urine Clarity Cloudy, Urine pH 5.0, Ur Specific [place] 1.025, Urine Protein 100 H, Urine Glucose (UA) Normal, Urine Ketones 5 H , Urine Occult Blood 250 H, Urine Nitrite Positive H, Urine Bilirubin Negative, Urine Urobilinogen 4 H, Ur Leukocyte Esterase 500 H, Urine RBC 25-50 SEEN, Urine WBC 25-50 SEEN, Ur Squamous Epith Cells 0 SEEN, Ur Transition Epith Cell 0-5 SEEN, Urine Bacteria 1+, Urine Mucus 1+ Radiography Diagnostic Testing: Radiology Impression KUB X-Ray 12/14/23 07:42 IMPRESSION: Question rectal impaction. Electronically Signed: Amilcar Theodore MD at 16:34 EDT , Chest X-Ray 12/14/23 21:56 IMPRESSION: Normal x-ray examination of the chest. Electronically Signed: Bhavik Pacheco MD at 23:12 EDT , KUB X-Ray 12/14/23 21:57 IMPRESSION: Findings most consistent with severe colonic ileus. Electronically Signed: Bhavik Pacheco MD at 23:08 EDT , D/C Instructions Discharge Diet: No restrictions Discharge Activity: Return to Normal Activity Weight Bearing Status: Weight bearing as tolerated Call your doctor if you observe: Fever of 101 or Higher, Inability to urinate, Inability to have a bowel movement, Shortness of breath, Dizziness, Fainting spells, Swelling in the ankles, Chest pain and Uncontrolled pain Additional Instructions: Discharge to [facility] ED 12/14/2023 for evaluation. Please Follow Up With: Dr Coles Meaningful Use Info Meaningful Use Meaningful Use Diagnoses (Choose all that apply): None applicable Ischemic Stroke Statin Dosing Therapy Reference: STATIN DOSE THERAPY REFERENCE: * Patients > 75 years receive moderate or high dose statin therapy. * Patients 75 years or YOUNGER should receive HIGH intensity statin dose unless contraindicated. You will be required to document reason for non-treatment if statin daily dose does not meet guidelines. HIGH DOSE STATIN THERAPY DAILY Atorvastatin > than or = to 40 mg Rosuvastatin > than or = to 20 mg Amlodipine + Atorvastatin > than or = to 2.5/40 mg Ezetimibe + Simvastatin 10/80 mg Simvastatin 80mg Discharge Plan Admission Admit Date/Time: 12/12/23 17:34 Primary Reason for Your Visit: Debility. Attending Provider: Nikolai Ceballos Chi Primary Care Provider: Rayo Lanza Consulting Providers: Coretta Gomez Instructions Additional Instructions / Restrictions: Discharge to [facility] ED 12/14/2023 for evaluation. Discharge Orders/Prescriptions Prescriptions: No Action alendronate 70 mg tablet 70 mg PO QWEEK acetaminophen 325 mg tablet 650 mg PO Q6H dexamethasone 2 mg tablet 4 mg PO TID dexamethasone 2 mg tablet 4 mg PO BID dexamethasone 2 mg tablet 2 mg PO BID dexamethasone 2 mg tablet 2 mg PO DAILY dexamethasone 1 mg tablet 0.5 mg PO DAILY oxycodone 5 mg tablet 5 mg PO Q6H PRN (Reason: pain 1-10) warfarin 4 mg tablet 4 mg PO DAILY ascorbic acid (vitamin C) 500 mg capsule 500 mg PO DAILY glucosamine sulfate [Glucosamine] 500 mg tablet 500 mg PO DAILY Rx Instructions: administer with a meal aspirin 81 mg tablet,chewable 1 tab PO DAILY calcium citrate 250 mg calcium tablet 500 mg PO BID cholecalciferol (vitamin D3) 25 mcg (1,000 unit) capsule 25 mcg PO DAILY saw palmetto 500 mg capsule 500 mg PO DAILY Rx Instructions: give with food (meal/snack) turmeric 400 mg capsule 400 mg PO DAILY Acidophilus Capsule 10 mg PO DAILY vitamin B complex [Vitamins B Complex] Capsule 1 cap PO DAILY multivitamin [Daily Multi-Vitamin] Tablet 1 tab PO DAILY vit C-E-zinc qt-qwky-ghh-zeax 250 mg-200 unit -12.5 mg-1 mg capsule 2 cap PO BID propafenone 225 mg tablet 225 mg PO TID simvastatin 10 mg tablet 5 mg PO QHS vitamin E 100 unit capsule 201 mg PO DAILY Referrals / Follow Up: Rayo Lanza MD [Primary Care Provider] - Disposition Disposition (needs filled in before D/C Order can be placed): Acute Care Hospital [facility]
--- NOTE | 2023-12-22 08:30 | MDS.RN ---
Information for the MDS was obtained from review of the clinical record, interview of resident, staff, and direct observation of resident?s care.
== END 2023-12-14 23:45 | disposition short-term general hospital (02) | DRG 560 ==
PROVIDERS: Admitting Provider Family Medicine Geriatric Medicine; Referring Provider Family Medicine Geriatric Medicine; Visit Provider Family Medicine Geriatric Medicine
DX: M80.08XD Age-related osteoporosis with current pathological fracture, vertebra(e), subsequent encounter for fracture with routine healing (principal); E44.1 Mild protein-calorie malnutrition; K56.7 Ileus, unspecified; B37.9 Candidiasis, unspecified; E03.9 Hypothyroidism, unspecified; I25.10 Atherosclerotic heart disease of native coronary artery without angina pectoris; I48.91 Unspecified atrial fibrillation; S14.0XXD Concussion and edema of cervical spinal cord, subsequent encounter; E78.5 Hyperlipidemia, unspecified; E55.9 Vitamin D deficiency, unspecified; H35.30 Unspecified macular degeneration; W17.2XXD Fall into hole, subsequent encounter; F41.9 Anxiety disorder, unspecified; Z79.82 Long term (current) use of aspirin; R29.898 Other symptoms and signs involving the musculoskeletal system; M81.0 Age-related osteoporosis without current pathological fracture; R33.8 Other retention of urine; N40.1 Benign prostatic hyperplasia with lower urinary tract symptoms; Z79.899 Other long term (current) drug therapy; Z79.01 Long term (current) use of anticoagulants; Z68.25 Body mass index [BMI] 25.0-25.9, adult; M80.0AXD Age-related osteoporosis with current pathological fracture, other site, subsequent encounter for fracture with routine healing
CPT/HCPCS: 36415; 71046; 74018; 80048; 81001; 82306; 85025; 85610; 87077; 87086; 87088; 87186; 92526; 92610; 97110; 97116; 97162; 97166; 97530; 97535; 97802; J7030

== ENCOUNTER 2023-12-14 23:50 | Inpatient (IN) | payer MEDICARE, SELFPAY ==
[2023-12-14 23:50] VITALS: BP 137/95; PULSE 93; RESP 20; TEMP 36.5; O2SAT 92; BMI 27.3
[2023-12-15] VITALS (16 sets, daily range): BP systolic 96–151; BP diastolic 56–94; PULSE 63–83; RESP 16–18; TEMP 36.2–37; O2SAT 88–94; BMI 25.7
--- NOTE | 2023-12-15 00:01 | CT_ITS ---
EXAM: CT ABDOMEN AND PELVIS WITH INTRAVENOUS CONTRAST CLINICAL INDICATION: bowel obstruction TECHNIQUE: Helically acquired images were obtained of the abdomen and pelvis with intravenous contrast. This CT exam was performed using one or more of the following dose reduction techniques: automated exposure control, adjustment of the mA and/or kV according to patient size, and/or use of iterative reconstruction technique. CONTRAST: IV 100mL [id number] RADIATION DOSE: Total DLP: 1393.29 mGy-cm. COMPARISON: Abdominal radiograph of this same date. CTA abdomen and pelvis of 12/12/2023. FINDINGS: LOWER THORAX: Interval development of asymmetric groundglass opacities within the lingula and left lower lobe. Dependent atelectasis again noted right lung base. No pleural effusion. Heavy coronary artery calcification is present. No significant pericardial effusion. ABDOMEN: LIVER: Liver demonstrates fatty infiltration. GALLBLADDER AND BILE DUCTS: Gallbladder remains mildly distended. Small gravel-like stones are again seen in the dependent portion of the gallbladder. No gallbladder wall thickening or pericholecystic stranding. No biliary ductal dilatation. PANCREAS: Atrophic pancreas. No findings of acute pancreatitis. No focal cystic or solid mass. SPLEEN: Unremarkable. Normal size without focal cystic or solid mass. ADRENALS: Unremarkable. No nodules. KIDNEYS AND URETERS: Normal size kidneys with symmetric nephrograms. No hydronephrosis or obstructing ureteral stone. STOMACH AND BOWEL: The colon is elongated and redundant; colon is mildly distended with gas and fecal material; the cecum measures up to 9.3 cm in transverse diameter while the transverse colon measures up to 6.4 cm in transverse diameter. Rectum is filled and mildly distended with a collection of formed stool measuring 8.8 cm in AP diameter by 7.6 cm in transverse diameter by 9 cm in cephalocaudal dimension. No associated colonic mural thickening or retrorectal stranding. No pneumatosis or mesenteric venous gas. A small amount gas is trapped between the posterior colonic wall and stool within the ascending colon, pseudopneumatosis. No gastric mural thickening, periduodenal inflammatory changes or distended small bowel loops. PELVIS: APPENDIX: No evidence of acute appendicitis. BLADDER: Urinary bladder is collapsed about an indwelling Calixto catheter. REPRODUCTIVE: Unremarkable as visualized. No mass. ABDOMEN and PELVIS: INTRAPERITONEAL SPACE: Unremarkable. No ascites or other fluid collection. No free air. BONES/JOINTS: The thoracic and lumbar degenerative spurring. 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 Lumbar facet arthritis. No acute osseous abnormality. No suspicious lytic or blastic abnormality. SOFT TISSUES: Small fat-filled inguinal hernias are present. VASCULATURE: Calcific abdominal aorta and its branches. No AAA. 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 ARTURO enhances normally. LYMPH NODES: Unremarkable. No enlarged lymph nodes. CT/Abdomen/Pelvis W IV Cont ONLY IMPRESSION: 1. Elongated and redundant colon, containing a large amount of formed stool, including possible fecal impaction within the rectum. 2. No findings of colitis or small bowel obstruction. 3. Cholelithiasis again demonstrated. Electronically Signed: Liam Edwards MD at 2:13 EDT ,
--- NOTE | 2023-12-15 00:11 | EDS_ITS ---
HPI History of Present Illness Chief Complaint: Abd Pain Informant: patient Narrative Narrative: 88-year-old male presenting to the emergency room with vomiting abdominal pain and distention. Patient sustained a fall while on Coumadin which resulted in a C2 fracture. He was admitted to [facility] on 30 November. He was deemed to be too high risk for surgery and was placed in a hard collar. Coumadin was being held and he was placed on steroids due to cord edema and upper extremity weakness. Patient was transferred to TCU for rehab. He tells me he has not had a bowel movement since the day of his fall. He states that today they tried some enemas but it was not successful. He states he has not had any prior abdominal surgeries and then he recalls a partial colectomy due to polyps. Patient notes persistent vomiting this evening. He had blood work drawn which showed a white count of 25,000. Urinalysis was obtained from indwelling Calixto catheter and is positive for infection and culture sent but he has not yet received antibiotics. Calixto catheter was reportedly placed due to urinary retention while at outside hospital. He denies any prior history of bowel obstruction or volvulus [facility] Medical History Urinary retention Hypothyroidism Osteoporosis Hyperlipidemia Coronary artery disease Atrial fibrillation Mitral regurgitation Right arm weakness Sternal fracture Odontoid fracture Closed C2 fracture Fall Debility Home Medications ?Medication ?Instructions ?Recorded ?Last Taken ?Type Lactobacillus acidophilus 10 mg PO DAILY supplement 12/12/23 Unknown History (Acidophilus capsule) acetaminophen 325 mg tablet 650 mg PO Q6H pain 12/12/23 Unknown History alendronate 70 mg tablet 70 mg PO QWEEK bone health 12/12/23 Unknown History ascorbic acid (vitamin C) 500 mg 500 mg PO DAILY supplement 12/12/23 Unknown History capsule aspirin 81 mg chewable tablet 1 tab PO DAILY heart health 12/12/23 Unknown History calcium citrate 500 mg PO BID supplement 12/12/23 Unknown History cholecalciferol (vitamin D3) 25 25 mcg PO DAILY supplement 12/12/23 Unknown History mcg (1,000 unit) capsule dexamethasone 1 mg tablet 0.5 mg PO DAILY inflammation 12/12/23 Unknown History dexamethasone 2 mg tablet 2 mg PO BID inflammation 12/12/23 Unknown History dexamethasone 2 mg tablet 2 mg PO DAILY inflammation 12/12/23 Unknown History dexamethasone 2 mg tablet 4 mg PO BID inflamation 12/12/23 Unknown History dexamethasone 2 mg tablet 4 mg PO TID inflamation 12/12/23 Unknown History glucosamine sulfate 500 mg tablet 500 mg PO DAILY supplement 12/12/23 Unknown History (Glucosamine) multivitamin (Daily Multi-Vitamin 1 tab PO DAILY supplement 12/12/23 Unknown History tablet) oxycodone 5 mg tablet 5 mg PO Q6H PRN pain 1-10 12/12/23 Unknown History propafenone 225 mg tablet 225 mg PO TID AFIB 12/12/23 Unknown History saw palmetto 500 mg capsule 500 mg PO DAILY supplement 12/12/23 Unknown History simvastatin 10 mg tablet 5 mg PO QHS cholesterol 12/12/23 Unknown History turmeric 400 mg capsule 400 mg PO DAILY supplement 12/12/23 Unknown History vit C 250 mg-vit E 200 unit-zinc 2 cap PO BID supplement 12/12/23 Unknown History ox 12.5 [id number] capsule vitamin B complex (Vitamins B 1 cap PO DAILY supplement 12/12/23 Unknown History Complex capsule) vitamin E 100 unit capsule 201 mg PO DAILY supplement 12/12/23 Unknown History warfarin 4 mg tablet 4 mg PO DAILY AFIB 12/12/23 Unknown History Allergy/AdvReac Type Severity Reaction Status Date / Time Penicillins Allergy Mild Rash Verified 12/12/23 17:44 Family History Sister Cancer Brother CAD (coronary artery disease) Brother CAD (coronary artery disease) Brother Diabetes Brother CAD (coronary artery disease) Surgical History History of coronary angioplasty History of vasectomy History of cataract surgery History of resection of large bowel Social History household members: none Smoking Status: Never smoker alcohol intake: never substance use type: does not use ROS ROS ED Constitutional Constitutional ED: Denies chills, fever(s) or weight loss Eyes Eyes: Denies change in vision or diplopia ENT ENT ED: Denies ear pain, rhinorrhea or sore throat Cardiovascular Cardiovascular: Denies chest pain, orthopnea, palpitations or racing heartbeat Respiratory/Chest Respiratory/Chest: Denies cough, dyspnea or orthopnea Gastrointestinal Gastrointestinal: Reports abdominal pain, constipation, nausea, vomiting and other Details: Frequent belching ; Denies diarrhea Genitourinary Genitourinary ED: Denies dysuria, hematuria or urinary frequency Musculoskeletal Musculoskeletal: Reports neck pain; Denies arthralgias or myalgias Integumentary Denies abscess or rash Neurologic Neurologic: Denies headache(s) or weakness Psychiatric Psychiatric: Denies anxiety, depression, suicidal ideation or suicidal thoughts Endocrine Endocrinology: Denies polydipsia, polyphagia or polyuria Allergic/Immunologic Allergic/Immunologic ED: Denies mouth swelling, tongue swelling or urticaria EXAM Physical Exam Const Vital Signs: 12/14/23 23:50 12/15/23 01:41 12/15/23 02:08 Temperature 97.7 F L 97.6 F L 97.2 F L Temperature Source Oral Oral Oral Pulse Rate 93 83 80 Respiratory Rate 20 H 18 18 Blood Pressure 137/95 H 136/81 H 151/94 H Blood Pressure Mean 109 99 113 Pulse Ox 92 93 92 Oxygen Delivery Method Room Air Room Air Room Air Positive well nourished and well developed General Appearance ED: well developed HEENT Reports normocephalic, head/scalp atraumatic and moist mucous membranes Eyes PERRL and EOMs intact bilaterally Neck no lymphadenopathy, supple and no JVD Neck Narrative: Patient is in a hard collar Resp normal respiratory effort and clear to auscultation bilaterally Cardio regular rate, regular rhythm and no murmurs GI GI Narrative: Positive tympany Inspection: abdominal distention Auscultation: hypoactive bowel sounds Palpation: soft and tender Back/Spine no CVA tenderness and normal ROM Extremity normal to inspection General Extremety ED: Negative for edema General Extremity: Negative for edema Neuro oriented x3 and CN's II-XII intact bilaterally Sensorium / Orientation: alert Motor Exam: strength 5/5 throughout Psych mental status grossly normal Mood & Affect: Negative for depressed or tearful Skin no rashes or lesions noted and no wounds MDM MDM MDM Narrative Medical decision making narrative: Differential diagnosis includes but not limited to small bowel obstruction volvulus fecal impaction constipation UTI sepsis I reviewed the labs that the patient had earlier. He had a significant leukocytosis yesterday which to some degree is most likely related to his high- dose steroids that he is on. His INR tonight is 2.6 lactic acid 2.2 total bilirubin 1.4 direct bilirubin 0.[address] abdomen pelvis was obtained which demonstrates gaseous distention of the large bowel as well as large amount of stool in the rectum. Urine culture had been previously sent and we obtained blood cultures. He was given a dose of Rocephin as well as IV fluids. Plan is admission History & Record Review Discussion w/independent historian: Patient Additional record(s) reviewed:: Prior outpatient record and Prior labs Lab Data Attestation: I reviewed the patient's lab results. Labs: Laboratory Results - last 24 hr 12/15/23 00:03 PT 27.6 H INR 2.6 Lactic Acid 2.2 H* Total Bilirubin 1.40 H Direct Bilirubin 0.55 H AST 35 ALT 89 H Alkaline Phosphatase 116 Total Protein 7.2 Albumin 2.9 L Globulin 4.3 H Lipase 44 Radiography Diagnostic Testing: Clinical Impression(s) from Imaging Studies Abdomen/Pelvis CT 12/15/23 00:01 IMPRESSION: 1. Elongated and redundant colon, containing a large amount of formed stool, including possible fecal impaction within the rectum. 2. No findings of colitis or small bowel obstruction. 3. Cholelithiasis again demonstrated. Electronically Signed: Liam Edwards MD at 2:13 EDT , Management Discussion w/another healthcare provider: Hospitalist (Dr Palafox) Discharge Plan Dx/Rx/DC Orders Clinical Impression: Urinary retention, Odontoid fracture, Atrial fibrillation, Acute UTI, Ileus, Anticoagulated on Coumadin, Fecal impaction in rectum Disposition Disposition: Acute Care Hospital [facility]
[2023-12-15] MEDS: 0.9% Normal Saline (1000mL) 1,000 ML 999 ML IV ×2 (00:18→03:39)
[2023-12-15] MEDS: Ondansetron 4 MG/2 ML Vial IV (00:19)
[2023-12-15 00:29] LABS: International Normalized Ratio 2.6; Prothrombin Time (Protime)PT. 27.6 SECONDS (11.7-14.9)
[2023-12-15 00:37] LABS: AST(SGOT) 35 U/L (15-37); Alanine Aminotransfer ALT/SGPT 89 U/L (16-61); Albumin, Serum 2.9 g/dL (3.2-5.0); Alkaline Phosphatase 116 U/L (45-117); Bilirubin, Direct 0.55 mg/dL (0.00-0.30); Globulin 4.3 g/dL (2.2-4.2); Lipase 44 U/L (13-75); Protein, Total 7.2 g/dL (6.4-8.2)
[2023-12-15 01:07] LABS: Lactic Acid 2.2 mmol/L (0.4-1.9)
[2023-12-15] MEDS: Ceftriaxone 1 GM/50 ML BAG IV ×2 (01:40→21:48)
--- NOTE | 2023-12-15 02:23 | HP.PCM.HOS_ITS ---
HPI - General General Date of Admission: 12/15/23 Date of Service: 12/15/23 Chief Complaint: Vomiting, abdominal pain, distention and no BM for 2 weeks HPI Narrative Katharine MENDIETA, amado montilla 88 M was sent from TCU to ED for vomiting, abdominal pain and distention. History is limited as patient had unfortunate fall which resulted into C2 fracture. As per the Dr. Ceballos's note, patient had fall 3 feet onto concrete, stepped in a hole on warfarin for chronic A-fib. Had C2 fracture, odontoid fracture and sternal fracture. Patient was in [facility] and was deemed high risk for any surgery. MRI C-spine showed impingement of dorsal aspect of cord with cord edema. Patient on hard c-collar. Warfarin on hold. 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 CTA neck negative for vascular injury. Patient answers only in yes or no. He said abdominal pain mainly in lower quadrants and distention. Did not had bowel movement for 2 weeks. When asked about vomiting he denied but he is transferred to ER because of vomiting. He vomited up pills burping and constipated. He was tried several enemas to help constipation but only little result. In the ED, CT abdomen pelvis was done which shows severe distention of cecum with elongated and redundant colon containing large amount of formed stool including fecal impaction within the rectum. No findings of colitis or small bowel obstruction. No fever since 12/12/2023. Blood pressure in normal limit. No hypoxia or tachypnea. Patient has leukocytosis but on dexamethasone Patient also has urinary retention and is on indwelling Calixto catheter from PCU. Patient is DNR CC arrest with no intubation from TCU and further admitted. [facility] Medical History Urinary retention Hypothyroidism Osteoporosis Hyperlipidemia Coronary artery disease Atrial fibrillation Mitral regurgitation Right arm weakness Sternal fracture Odontoid fracture Closed C2 fracture Fall Debility Home Medications ?Medication ?Instructions ?Recorded ?Last Taken ?Type Lactobacillus acidophilus 10 mg PO DAILY supplement 12/12/23 Unknown History (Acidophilus capsule) acetaminophen 325 mg tablet 650 mg PO Q6H pain 12/12/23 Unknown History alendronate 70 mg tablet 70 mg PO QWEEK bone health 12/12/23 Unknown History ascorbic acid (vitamin C) 500 mg 500 mg PO DAILY supplement 12/12/23 Unknown History capsule aspirin 81 mg chewable tablet 1 tab PO DAILY heart health 12/12/23 Unknown History calcium citrate 500 mg PO BID supplement 12/12/23 Unknown History cholecalciferol (vitamin D3) 25 25 mcg PO DAILY supplement 12/12/23 Unknown History mcg (1,000 unit) capsule dexamethasone 1 mg tablet 0.5 mg PO DAILY inflammation 12/12/23 Unknown History dexamethasone 2 mg tablet 2 mg PO BID inflammation 12/12/23 Unknown History dexamethasone 2 mg tablet 2 mg PO DAILY inflammation 12/12/23 Unknown History dexamethasone 2 mg tablet 4 mg PO BID inflamation 12/12/23 Unknown History dexamethasone 2 mg tablet 4 mg PO TID inflamation 12/12/23 Unknown History glucosamine sulfate 500 mg tablet 500 mg PO DAILY supplement 12/12/23 Unknown History (Glucosamine) multivitamin (Daily Multi-Vitamin 1 tab PO DAILY supplement 12/12/23 Unknown His tory tablet) oxycodone 5 mg tablet 5 mg PO Q6H PRN pain 1-10 12/12/23 Unknown History propafenone 225 mg tablet 225 mg PO TID AFIB 12/12/23 Unknown History saw palmetto 500 mg capsule 500 mg PO DAILY supplement 12/12/23 Unknown History simvastatin 10 mg tablet 5 mg PO QHS cholesterol 12/12/23 Unknown History turmeric 400 mg capsule 400 mg PO DAILY supplement 12/12/23 Unknown History vit C 250 mg-vit E 200 unit-zinc 2 cap PO BID supplement 12/12/23 Unknown History ox 12.5 ey-xpioqp-sgevch-zeax capsule vitamin B complex (Vitamins B 1 cap PO DAILY supplement 12/12/23 Unknown History Complex capsule) vitamin E 100 unit capsule 201 mg PO DAILY supplement 12/12/23 Unknown History warfarin 4 mg tablet 4 mg PO DAILY AFIB 12/12/23 Unknown History Allergy/AdvReac Type Severity Reaction Status Date / Time Penicillins Allergy Mild Rash Verified 12/12/23 17:44 Family History Sister Cancer Brother CAD (coronary artery disease) Brother CAD (coronary artery disease) Brother Diabetes Brother CAD (coronary artery disease) Surgical History History of coronary angioplasty History of vasectomy History of cataract surgery History of resection of large bowel Social History household members: none Smoking Status: Never smoker alcohol intake: never substance use type: does not use ROS ROS Narrative 14 system ROS limited as patient is less communicative. As data collected from TCU and little contribution from the patient Constitutional: Reports fatigue and weakness. No fever. HEENT: Reports systems reviewed and no addt'l complaints, except as documented Respiratory/Chest: No acute shortness of breath or respiratory distress or wheezing. CVS: No chest pain pressure or tightness Gastrointestinal: Vomiting. Vomiting pills. Rest as described in HPI Genitourinary: Indwelling Calixto catheter Musculoskeletal: Fall with C2 fracture. Neurologic: Right upper extremity weakness skin: No ulcer. No rash Endocrinology: Reports systems reviewed and no addt'l complaints, except as documented Hematologic/Lymphatic: Reports systems reviewed and no addt'l complaints, except as documented Review of Systems ROS Unobtainable: due to mental condition and other Details: Has a hard c-collar Vital Signs Vital Signs Vital Signs: 12/14/23 23:50 12/15/23 01:41 12/15/23 02:08 Temperature 97.7 F L 97.6 F L 97.2 F L Temperature Source Oral Oral Oral Pulse Rate 93 83 80 Respiratory Rate 20 H 18 18 Blood Pressure 137/95 H 136/81 H 151/94 H Blood Pressure Mean 109 99 113 Pulse Ox 92 93 92 Oxygen Delivery Method Room Air Room Air Room Air Weight Weight: 190 lb 4.143 oz Body Mass Index (BMI) 27.3 Physical Exam Narrative General: Awake, oriented to time and person but not place. Lethargy HEENT:Atraumatic, PERRLA, EOMI, Normocephalic Oral: Oral mucosa dry. No Gingival or Mucosal Lesions/ Ulcerations Neck: On hard c-collar. Chest wall/Lungs: Air entry diminished in bilateral lung bases. No crepitation/rhonchi Cardiovascular: A-fib, rhythm, soft murmur Abdomen: Bowel Sounds sluggish with Richards click. Distended. Mild tenderness present in lower quadrants. No guarding/rigidity : Calixto catheter draining dark mustard colored urine. No renal angle tenderness. No suprapubic tenderness. Extremities: No edema, Capillary Refill Less than 3 Seconds Skin: No rashes, No breakdown Musculoskeletal: Muscle strength 4/5 at knees and hip joints. Right upper extremity 3+/5 Neurological: Cranial nerves could not be accurately examined DTR 2+/4. C2 fracture with cord edema. Psych/Mental Status: Flat affect. Results Lab / Micro Data Labs: Laboratory Results - last 24 hr 12/15/23 00:03: PT 27.6 H, INR 2.6, Lactic Acid 2.2 H*, Total Bilirubin 1.40 H, Direct Bilirubin 0.55 H, AST 35, ALT 89 H, Alkaline Phosphatase 116, Total Protein 7.2, Albumin 2.9 L, Globulin 4.3 H, Lipase 44 Imaging Radiology Impression Abdomen/Pelvis CT 12/15/23 00:01 IMPRESSION: 1. Elongated and redundant colon, containing a large amount of formed stool, including possible fecal impaction within the rectum. 2. No findings of colitis or small bowel obstruction. 3. Cholelithiasis again demonstrated. Electronically Signed: Liam Edwards MD at 2:13 EDT , Assessment & Plan Assessment/Plan (1) Fecal impaction in rectum: (2) Ileus: PLAN: Plan This is a 88-year-old gentleman being admitted from TCU through ED for severe constipation along with abdominal pain, distention and vomiting pills. Patient very dehydrated. 1. Colonic ileus with fecal distention, elongated and redundant colon due to stool with fecal impaction within the rectum: Patient is being admitted in medical floor. Lactic acid elevated 2.2 probably from severe dehydration. IV fluid 1 L normal saline was given. Normal saline 1 more liter bolus and then 100 mL/h to continue for 2 more liters. GoLytely ordered. GI will be consulted. N.p.o. except GoLytely. Leukocytosis probably from dexamethasone but infection could not be completely ruled out with fecal impaction and ileus therefore empirically started on IV ceftriaxone and Flagyl. 2. Suspicion of UTI with indwelling Calixto catheter possible CAUTI: Patient cannot complain of dysuria as he has Calixto catheter. UA positive of nitrite, LE 500, RBC 25-50 cells, WBC 25-50 cells, 1+ bacteria. Started on IV ceftriaxone. Urine culture ordered. 3. Chronic A-fib: INR is [id number]/, 2.6. Hold warfarin. Patient got warfarin on 12/12 and . 4. Acute debility due to fall resulting into C2 fracture, odontoid fracture, or distal fracture: On conservative management. PT and OT ordered. Speech therapy also ordered for dysphagia. 5. Osteoporosis: Hold alendronate 6. Other multiple comorbidities include moderate chronic malnutrition, BPH and dyslipidemia: Food Service Clerk consult. 7. DVT prophylaxis: INR therapeutic. Living will/advanced directive/end of life care: Patient does HAVE have living will or advanced directive. His daughter is the power of assistant county attorney for health. After discussion of benefits/risks procedures involved with full code, DNR CC arrest and DNR CC, the patient opted for DNR CC arrest with no interval Patient doesn't want artificial life support including intubation, tube feed, ventilator and/chest compression, central venous catheter, vasopressor and DC shock if needed Total time spent in [id number] encounter in discussion of advanced directive 17 minutes. Laboratory Results 12/15/23 00:03: PT 27.6 H, INR 2.6, Lactic Acid 2.2 H*, Phosphorus 3.4, Magnesium 2.5, Total Bilirubin 1.40 H, Direct Bilirubin 0.55 H, AST 35, ALT 89 H , Alkaline Phosphatase 116, Total Protein 7.2, Albumin 2.9 L, Globulin 4.3 H, Lipase 44 Clinical Impression(s) from Imaging Studies Abdomen/Pelvis CT 12/15/23 00:01 IMPRESSION: 1. Elongated and redundant colon, containing a large amount of formed stool, including possible fecal impaction within the rectum. 2. No findings of colitis or small bowel obstruction. 3. Cholelithiasis again demonstrated. Electronically Signed: Liam Edwards MD at 2:13 EDT , Charges/Coding Visit Charges Inpatient E&M: 98610 Init Hosp L3 Procedures Hospitalists Procedures: 87924 Advncd Care Plan 30 Min
[2023-12-15 03:10] LABS: Magnesium 2.5 mg/dL (1.6-2.6); Phosphorus 3.4 mg/dL (2.5-4.9)
[2023-12-15] MEDS: metroNIDAZOLE 500 MG/100 ML BAG 100 MG IV ×3 (03:58→22:24)
[2023-12-15 04:14] LABS: Reflex Lactate? Y
[2023-12-15 04:46] LABS: Absolute Lymphocyte Count 0.97 X10^3/uL (0.83-4.51); Basophil# 0.12 X10^3/uL; Basophil% 0.4 % (0-1); Eosinophil# 0.01 X10^3/uL; Hematocrit 44.4 % (40-54); Hemoglobin 14.6 g/dL (13.0-16.5); Lymphocyte # 0.97 X10^3/ul (0.83-4.51); Lymphocyte % 3.5 % (19-41); Mean Corp Hgb Conc 32.9 g/dL (32-36); Mean Corpuscular Hgb 32.1 pg (27.0-32.0); Mean Corpuscular Volume 97.6 fL (80-94); Monocyte# 1.91 X10^3/uL; Monocyte% 6.9 % (0-10); NRBC Flagged by Analyzer 0 % (0-5); Neutrophil # 23.97 X10^3/uL (2.7-7.7); POSITIVE DIFFERENTIAL YES; Platelet Count 238 K/mm3 (150-450); RBC Distribution Width CV 12.4 % (11.6-14.6); RBC Distribution Width SD 44.1 fl (35.1-43.9); Red Blood Count 4.55 M/mm3 (4.6-6.2); White Blood Count 27.6 K/mm3 (4.4-11.0)
[2023-12-15] MEDS: Electrolyte Solution/Peg's 4000 ML 2000 ML PO (04:52)
[2023-12-15] MEDS: 0.9% Normal Saline (1000mL) 1,000 ML 100 ML IV ×2 (04:57→20:02)
[2023-12-15 05:09] LABS: Differential Indicated SCAN CRITERIA MET
[2023-12-15 05:26] LABS: Lactic Acid 2.2 mmol/L (0.4-1.9)
[2023-12-15 05:33] LABS: Anion Gap 5 (5-15); BUN 35 mg/dL (7-18); BUN/Creat Ratio 48.3 RATIO (10-20); Calcium,Total 8.5 mg/dL (8.5-10.1); Chloride 105 mmol/L (98-107); Creatinine, Serum 0.72 mg/dL (0.70-1.30); EST Glomerular Filtration Rate 109 mL/min (>60); Est Glom Filt Rate - Afr Amer 131 mL/min (>60); Glucose 167 mg/dL (74-106); Potassium 4.9 mmol/L (3.5-5.1); Sodium Level 138 mmol/L (136-145)
[2023-12-15 05:54] LABS: Differential Comment SCANNED
[2023-12-15] MEDS: Acetaminophen 325 MG Tablet 650 MG PO ×3 (06:37→19:38)
--- NOTE | 2023-12-15 09:00 | CON.PCM.GI_ITS ---
HPI Consult Data Date of Consult: 12/15/23 HPI Narrative Reason for Consultation: Colonic pseudoobstruction HPI Narrative: amado VILLASEÑOR a 88 M was sent from TCU to ED for vomiting, abdominal pain and distention. History is limited as patient had unfortunate fall which resulted into C2 fracture. As per the Dr. Ceballos's note, patient had fall 3 feet onto concrete, stepped in a hole on warfarin for chronic A-fib. Had C2 fracture, odontoid fracture and sternal fracture. Patient was in [facility] and was deemed high risk for any surgery. MRI C-spine showed impingement of dorsal aspect of cord with cord edema. Patient on hard c-collar. Warfarin on hold. 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 CTA neck negative for vascular injury. Patient answers only in yes or no. He said abdominal pain mainly in lower quadrants and distention. Did not had bowel movement for 2 weeks. When asked about vomiting he denied but he is transferred to ER because of vomiting. He vomited up pills burping and constipated. He was tried several enemas to help constipation but only little result. In the ED, CT abdomen pelvis was done which shows severe distention of cecum with elongated and redundant colon containing large amount of formed stool including fecal impaction within the rectum. No findings of colitis or small bowel obstruction. No fever since 12/12/2023. Blood pressure in normal limit. No hypoxia or tachypnea. Patient has leukocytosis but on dexamethasone. I was consulted for colonic pseudoobstruction. [facility] Medical History Urinary retention Hypothyroidism Osteoporosis Hyperlipidemia Coronary artery disease Atrial fibrillation Mitral regurgitation Right arm weakness Sternal fracture Odontoid fracture Closed C2 fracture Fall Debility Home Medications ?Medication ?Instructions ?Recorded ?Last Taken ?Type Lactobacillus acidophilus 10 mg PO DAILY supplement 12/12/23 Unknown History (Acidophilus capsule) acetaminophen 325 mg tablet 650 mg PO Q6H pain 12/12/23 Unknown History alendronate 70 mg tablet 70 mg PO QWEEK bone health 12/12/23 Unknown History ascorbic acid (vitamin C) 500 mg 500 mg PO DAILY supplement 12/12/23 Unknown History capsule aspirin 81 mg chewable tablet 1 tab PO DAILY heart health 12/12/23 Unknown History calcium citrate 500 mg PO BID supplement 12/12/23 Unknown History cholecalciferol (vitamin D3) 25 25 mcg PO DAILY supplement 12/12/23 Unknown History mcg (1,000 unit) capsule dexamethasone 1 mg tablet 0.5 mg PO DAILY inflammation 12/12/23 Unknown History dexamethasone 2 mg tablet 2 mg PO BID inflammation 12/12/23 Unknown History dexamethasone 2 mg tablet 2 mg PO DAILY inflammation 12/12/23 Unknown History dexamethasone 2 mg tablet 4 mg PO BID inflamation 12/12/23 Unknown History dexamethasone 2 mg tablet 4 mg PO TID inflamation 12/12/23 Unknown History glucosamine sulfate 500 mg tablet 500 mg PO DAILY supplement 12/12/23 Unknown History (Glucosamine) multivitamin (Daily Multi-Vitamin 1 tab PO DAILY supplement 12/12/23 Unknown History tablet) oxycodone 5 mg tablet 5 mg PO Q6H PRN pain 1-10 12/12/23 Unknown History propafenone 225 mg tablet 225 mg PO TID AFIB 12/12/23 Unknown History saw palmetto 500 mg capsule 500 mg PO DAILY supplement 12/12/23 Unknown History simvastatin 10 mg tablet 5 mg PO QHS cholesterol 12/12/23 Unknown History turmeric 400 mg capsule 400 mg PO DAILY supplement 12/12/23 Unknown History vit C 250 mg-vit E 200 unit-zinc 2 cap PO BID supplement 12/12/23 Unknown History ox 12.5 dw-aukcim-rzzydb-zeax capsule vitamin B complex (Vitamins B 1 cap PO DAILY supplement 12/12/23 Unknown History Complex capsule) vitamin E 100 unit capsule 201 mg PO DAILY supplement 12/12/23 Unknown History warfarin 4 mg tablet 4 mg PO DAILY AFIB 12/12/23 Unknown History Allergy/AdvReac Type Severity Reaction Status Date / Time Penicillins Allergy Mild Rash Verified 12/15/23 03:27 Family History Sister Cancer Brother CAD (coronary artery disease) Brother CAD (coronary artery disease) Brother Diabetes Brother CAD (coronary artery disease) Surgical History History of coronary angioplasty History of vasectomy History of cataract surgery History of resection of large bowel Social History household members: none Smoking Status: Never smoker alcohol intake: never substance use type: does not use ROS ROS Narrative 14 system ROS limited as patient is less communicative. As data collected from TCU and little contribution from the patient Constitutional: Reports fatigue and weakness. No fever. HEENT: Reports systems reviewed and no addt'l complaints, except as documented Respiratory/Chest: No acute shortness of breath or respiratory distress or wheezing. CVS: No chest pain pressure or tightness Gastrointestinal: Vomiting. Vomiting pills. Rest as described in HPI Genitourinary: Indwelling Calixto catheter Musculoskeletal: Fall with C2 fracture. Neurologic: Right upper extremity weakness skin: No ulcer. No rash Endocrinology: Reports systems reviewed and no addt'l complaints, except as documented Hematologic/Lymphatic: Reports systems reviewed and no addt'l complaints, except as documented Review of Systems ROS Unobtainable: due to mental condition and other Details: Has a hard c-collar Physical Exam Narrative General: Awake, oriented to time and person but not place. Lethargy HEENT:Atraumatic, PERRLA, EOMI, Normocephalic Oral: Oral mucosa dry. No Gingival or Mucosal Lesions/ Ulcerations Neck: On hard c-collar. Chest wall/Lungs: Air entry diminished in bilateral lung bases. No crepitation/rhonchi Cardiovascular: A-fib, rhythm, soft murmur Abdomen: Bowel Sounds sluggish with Richards click. Distended. Mild tenderness present in lower quadrants. No guarding/rigidity : Calixto catheter draining dark mustard colored urine. No renal angle tenderness. No suprapubic tenderness. Extremities: No edema, Capillary Refill Less than 3 Seconds Skin: No rashes, No breakdown Musculoskeletal: Muscle strength 4/5 at knees and hip joints. Right upper extremity 3+/5 Neurological: Cranial nerves could not be accurately examined DTR 2+/4. C2 fracture with cord edema. Psych/Mental Status: Flat affect. Lab / Micro Data 12/15/23 04:25 12/15/23 04:25 Labs: Laboratory Results - last 24 hr 12/15/23 00:03: PT 27.6 H, INR 2.6, Lactic Acid 2.2 H*, Phosphorus 3.4, Magnesium 2.5, Total Bilirubin 1.40 H, Direct Bilirubin 0.55 H, AST 35, ALT 89 H , Alkaline Phosphatase 116, Total Protein 7.2, Albumin 2.9 L, Globulin 4.3 H, Lipase 44 12/15/23 04:25: WBC 27.6 H, RBC 4.55 L, Hgb 14.6, Hct 44.4, MCV 97.6 H, MCH 32.1 H, MCHC 32.9, RDW Std Deviation 44.1 H, RDW Coeff of [place] 12.4, Plt Count 238, MPV 11.0, Immature Gran % (Auto) 2.200 H, Neut % (Auto) 87.0 H, Lymph % (Auto) 3.5 L, White % (Auto) 6.9, Eos % (Auto) 0.0, Baso % (Auto) 0.4, Absolute Neuts (auto) 24.0 H, Absolute Lymphs (auto) 0.97, Nucleated RBC % 0, Differential Comment SCANNED, Diff Path Review Reviewed, Sodium 138, Potassium 4.9, Chloride 105, Carbon Dioxide 27.0, Anion Gap 5, BUN 35 H, Creatinine 0.72, Estim Creat Clear Calc 65.90, Est GFR (MDRD) Af Amer 131, Est GFR (MDRD) Non-Af 109, B UN/Creatinine Ratio 48.3 H, Glucose 167 H, Lactic Acid 2.2 H*, Calcium 8.5, TSH 1.900 Imaging Radiology Impression Abdomen/Pelvis CT 12/15/23 00:01 IMPRESSION: 1. Elongated and redundant colon, containing a large amount of formed stool, including possible fecal impaction within the rectum. 2. No findings of colitis or small bowel obstruction. 3. Cholelithiasis again demonstrated. Electronically Signed: Liam Edwards MD at 2:13 EDT , Assessment & Plan Assessment/Plan (1) Fecal impaction in rectum: (2) Ileus: PLAN: Plan This is a 88-year-old gentleman being admitted from TCU through ED for severe constipation along with abdominal pain, distention and vomiting pills. Patient very dehydrated. 1. It appears that he has colonic pseudoobstruction possibly secondary to electrolyte abnormality. His right side of his colon is very dilated and he is at risk for perforation. He is on antibiotic therapy. There was an attempt to give him GoLytely. However he is not tolerating GoLytely very well due to his c-collar. Because of his blood pressure and recent neck fracture I do not know if he is a candidate for neostigmine. I think the best thing for him would be colonic decompression with rectal tube in certain. He would likely also need NG tube because he is not able to swallow and that would help to decompress his upper GI tract to hopefully stop from his colon dilating. He was explained alternatives, risk, benefits include not withstanding bleeding, infection, sepsis, perforation, need for emergent urgent . He will have an ASA of 3.
--- NOTE | 2023-12-15 09:22 | EKG12_ITS ---
Test Reason : CP Blood Pressure : / mmHG Vent. Rate : 078 BPM Atrial Rate : 078 BPM P-R Int : 150 ms QRS Dur : 086 ms QT Int : 386 ms P-R-T Axes : 035 -14 041 degrees QTc Int : 440 ms Sinus rhythm with occasional Premature ventricular complexes and Premature atrial complexes Otherwise normal ECG No previous ECGs available Confirmed by Justin Alejandre ([id number]), proposal editor JASPER EISENBERG ([id number]) on 12/21/2023 10:40:44 AM Referred By: CITLALY Confirmed By:Justin Alejandre
--- NOTE | 2023-12-15 09:31 | NURSING ---
While this RN performing shift assessment on pt, pt stated he was having chest pain in the middle pt pointed to where his C-collar comes down and rests on his upper middle chest. This RN asked if the chest pain was on the inside or outside of his chest. pt stated both. EKG ordered and done at this time. BP low. Pt complains of neck pain. 02 2L NC maintained at this time.
[2023-12-15 13:21] LABS: Pathologist Review Reviewed
--- NOTE | 2023-12-15 14:48 | PCM.PRE.AN2 ---
ASA Classification* ASA Classification ASA Classification: 3 Assessment & Plan Anesthesia* Anesthesia Assessment Anesthesia Assessment: Discussed sedation and/or anesthesia options, risks, benefits, and alternatives with patient/parents/legal guardian/POA. Questions invited. The patient/parents/legal guardian/POA seems to understand and agrees to proceed with anesthesia plan. Reviewed the physical assessment, medical history, allergy history and patient home medications list prior to surgery/procedure/anesthetic and documented any changes. Performed airway and anesthesia risk assessments. Anesthesia Type Anesthesia Type: MAC (Closed C2 fracture) Anesthesia Focused Assessment* Temperature: 98.1 F Pulse Rate: 81 Blood Pressure: 106/79 Respiratory Rate: 18 Pulse Ox: 93 Airway Assessment Mouth opens: >3 cm Mallampati Score: II Focused Labs Anesthesia Preop lab: CBC WBC 27.6 K/mm3 (4.4-11.0) H 12/15/23 04:25 RBC 4.55 M/mm3 (4.6-6.2) L 12/15/23 04:25 Hgb 14.6 g/dL (13.0-16.5) 12/15/23 04:25 Hct 44.4 % (40-54) 12/15/23 04:25 Plt Count 238 K/mm3 (150-450) 12/15/23 04:25 CHEMISTRY Potassium 4.9 mmol/L (3.5-5.1) 12/15/23 04:25 Sodium 138 mmol/L (136-145) 12/15/23 04:25 Magnesium 2.5 mg/dL (1.6-2.6) 12/15/23 00:03 Phosphorus 3.4 mg/dL (2.5-4.9) 12/15/23 00:03 BUN 35 mg/dL (7-18) H 12/15/23 04:25 Creatinine 0.72 mg/dL (0.70-1.30) 12/15/23 04:25 Glucose 167 mg/dL (74-106) H 12/15/23 04:25 TSH 1.900 uIU/mL (0.358-3.740) 12/15/23 04:25 COAG PT 27.6 SECONDS (11.7-14.9) H 12/15/23 00:03 Pre-Assessment Diagnosis/Proposed Procedure Planned Operative Procedure(s): colonoscopy, decompression bowell Anesthesia History 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 When Was Last Pacemaker Check QUESTION #4 FULL TEXT: You/Your Family Experience fever (hyperthermia) with Anesthesia Last Oral Intake Last Oral intake: Last Oral Intake NPO since 11:15 12/15/23 14:27 Meds taken in AM with sips of Yes 12/15/23 14:27 water? 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 Female HX of Motion Sickness HX of N/V After Surgery Non-Smoker Duration of Surgery greater than 60 minutes Number of Risk Factors PONV Score Height & Weight Height & Weight: Anesthesia: Height & Weight Height 5 ft 10 in 12/15/23 14:27 Weight: 81.5 kg 12/15/23 14:27 Body Mass Index (BMI) 25.7 12/15/23 14:27 Respiratory Assessment Respiratory Assessment - signal technician: Respiratory Tract Infection Hx - signal technician Hx Respiratory Tract Infection STOP Sleep Apnea STOP Sleep Apnea - signal technician: STOP Sleep Apnea - signal technician Hx Hypertension No 12/15/23 13:26 Hx Sleep Apnea No 12/15/23 03:21 CPAP BIPAP Do you snore loudly (louder Yes 12/15/23 03:21 than talking or can be heard Do you often feel tired/ No 12/15/23 03:21 fatigued/ sleepy during daytime? Has anyone observed you stop No 12/15/23 03:21 breathing during sleep? STOP Results Negative 12/15/23 03:21 QUESTION #5 FULL TEXT : Do you snore loudly (louder than talking or can be heard through closed doors)? 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 Specify any problems Hx of Preganancy in last 3 N/A 12/15/23 03:21 Months Nurse Filling Out Transfusion JGLASS 12/15/23 03:21 & Questions: Date: 12/15/23 12/15/23 03:21 Time: 03:23 12/15/23 03:21 Patient unable to answer at this time (ie. confused, unrespo /Reproduction History /Reproductive History - signal technician: /Reproductive Hx- signal technician Hx Now Gestational Age (in weeks): EDC: Hx Hx Para Hx Section SAB Active Medications Active Medications: Current Medications Generic Name Dose Route Start Last Admin Trade Name Freq PRN Reason Stop Dose Admin Acetaminophen 650 mg 12/15/23 03:26 12/15/23 06:37 Acetaminophen 325 Mg Tablet PO 650 mg Q6H PRN PRN Administration Pain 1-10 Or Fever >100.7 Metronidazole 500 mg in 100 mls @ 100 mls/hr 12/15/23 03:00 12/15/23 04:58 Flagyl IV Infused Q8 SYDNI Infusion Ceftriaxone Sodium 1 gm in 50 mls @ 100 mls/hr 12/15/23 22:00 Rocephin IV 2200 SYDNI Sodium Chloride 100 mls @ 15 mls/hr 12/15/23 03:17 IV .Q6H40M PRN Saline Flush Sodium Chloride 100 mls @ 15 mls/hr 12/15/23 03:17 IV .Q6H40M PRN Additional IVPB Infusion Sodium Chloride 1,000 mls @ 100 mls/hr 12/15/23 04:20 12/15/23 04:57 IV 12/16/23 00:19 100 mls/hr .Q10H SYDNI Administration Protocol Nitroglycerin 0.4 mg 12/15/23 03:26 Nitroglycerin (Inpatient Use) 0.4 Mg Tab.Subl SL Q5M PRN CARDIAC/CHEST PAIN Sodium Chloride 10 - 40 ml 12/15/23 03:17 0.9% Saline Lock 10 Ml Syringe IV UD PRN SALINE FLUSH PFSH Medical History Urinary retention Hypothyroidism Osteoporosis Hyperlipidemia Coronary artery disease Atrial fibrillation Mitral regurgitation Right arm weakness Sternal fracture Odontoid fracture Closed C2 fracture Fall Debility Home Medications ?Medication ?Instructions ?Recorded ?Last Taken ?Type Lactobacillus acidophilus 10 mg PO DAILY supplement 12/12/23 Unknown History (Acidophilus capsule) acetaminophen 325 mg tablet 650 mg PO Q6H pain 12/12/23 Unknown History alendronate 70 mg tablet 70 mg PO QWEEK bone health 12/12/23 Unknown History ascorbic acid (vitamin C) 500 mg 500 mg PO DAILY supplement 12/12/23 Unknown History capsule aspirin 81 mg chewable tablet 1 tab PO DAILY heart health 12/12/23 Unknown History calcium citrate 500 mg PO BID supplement 12/12/23 Unknown History cholecalciferol (vitamin D3) 25 25 mcg PO DAILY supplement 12/12/23 Unknown History mcg (1,000 unit) capsule dexamethasone 1 mg tablet 0.5 mg PO DAILY inflammation 12/12/23 Unknown History dexamethasone 2 mg tablet 2 mg PO BID inflammation 12/12/23 Unknown History dexamethasone 2 mg tablet 2 mg PO DAILY inflammation 12/12/23 Unknown History dexamethasone 2 mg tablet 4 mg PO BID inflamation 12/12/23 Unknown History dexamethasone 2 mg tablet 4 mg PO TID inflamation 12/12/23 Unknown History glucosamine sulfate 500 mg tablet 500 mg PO DAILY supplement 12/12/23 Unknown History (Glucosamine) multivitamin (Daily Multi-Vitamin 1 tab PO DAILY supplement 12/12/23 Unknown History tablet) oxycodone 5 mg tablet 5 mg PO Q6H PRN pain 1-10 12/12/23 Unknown History propafenone 225 mg tablet 225 mg PO TID AFIB 12/12/23 Unknown History saw palmetto 500 mg capsule 500 mg PO DAILY supplement 12/12/23 Unknown History simvastatin 10 mg tablet 5 mg PO QHS cholesterol 12/12/23 Unknown History turmeric 400 mg capsule 400 mg PO DAILY supplement 12/12/23 Unknown History vit C 250 mg-vit E 200 unit-zinc 2 cap PO BID supplement 12/12/23 Unknown History ox 12.5 il-ulfimw-ytvwaw-zeax capsule vitamin B complex (Vitamins B 1 cap PO DAILY supplement 12/12/23 Unknown History Complex capsule) vitamin E 100 unit capsule 201 mg PO DAILY supplement 12/12/23 Unknown History warfarin 4 mg tablet 4 mg PO DAILY AFIB 12/12/23 Unknown History Allergy/AdvReac Type Severity Reaction Status Date / Time Penicillins Allergy Mild Rash Verified 12/15/23 03:27 Family History Sister Cancer Brother CAD (coronary artery disease) Brother CAD (coronary artery disease) Brother Diabetes Brother CAD (coronary artery disease) Surgical History History of coronary angioplasty History of vasectomy History of cataract surgery History of resection of large bowel Social History household members: none Smoking Status: Never smoker alcohol intake: never substance use type: does not use Review of Systems (Anesthesia) ROS Narrative System reviewed and no additional complaints, except as documented.
--- NOTE | 2023-12-15 16:08 | CASEMGMT ---
Social Work- SW attempted to meet with pt. Pt not in room. SW spoke with TCU SW to receive updated information for plan of care discussion. SW awaiting physician direction on medical status. SW will continue to follow. GREGG Correa
--- NOTE | 2023-12-15 16:12 | PCM.PN.BLA ---
Progress Note 1. Colonic ileus with fecal distention and pseudoobstruction ? Plan for rectal tube insertion and NG insertion by GI ? Attempted GoLytely which she did not tolerate very well ? He is on chronic dexamethasone which likely explains his leukocytosis specially in the setting of pseudoobstruction and colonic dilatation 2. Possible UTI ? He does have an indwelling catheter but UA is positive ? Continue on Rocephin ? Urine cultures pending 3. Chronic A-fib/HLD ? She is on Coumadin and is therapeutic ? Will hold Coumadin ? Will hold his oral medications 4. Osteoporosis ? Will hold his alendronate 5. Debility ? He is in TCU recovering from a C2 fracture ? Continue with c-collar ? PT/OT
--- NOTE | 2023-12-15 17:35 | OP.COLON_ITS ---
Patient Name: Katharine Pereyra Procedure Date: 12/15/2023 4:31 PM Date of : 1935 Age: 88 Procedure: Colonoscopy Indications: For therapy of Lorin's syndrome Providers: Jr Arthur DO Medicines: Monitored Anesthesia Care Patient Profile: This is an 88 year old male. Refer to note in patient chart for documentation of history and physical. Last Colonoscopy: date unknown. Unable to locate last colonoscopy report. Complications: No immediate complications. Procedure: Pre-Anesthesia Assessment: - Prior to the procedure, a History and Physical was performed, and patient medications and allergies were reviewed. The patient is competent. The risks and benefits of the procedure and the sedation options and risks were discussed with the patient. All questions were answered and informed consent was obtained. Patient identification and proposed procedure were verified by the physician in the pre-procedure area. Mental Status Examination: alert and oriented. Airway Examination: normal oropharyngeal airway and neck mobility. Respiratory Examination: clear to auscultation. CV Examination: normal. Prophylactic Antibiotics: The patient does not require prophylactic antibiotics. Prior Anticoagulants: The patient has taken no anticoagulant or antiplatelet agents except for NSAID medication. ASA Grade Assessment: II - A patient with mild systemic disease. After reviewing the risks and benefits, the patient was deemed in satisfactory condition to undergo the procedure. The anesthesia plan was to use moderate sedation / analgesia (conscious sedation). Immediately prior to administration of medications, the patient was re-assessed for adequacy to receive sedatives. The heart rate, respiratory rate, oxygen saturations, blood pressure, adequacy of pulmonary ventilation, and response to care were monitored throughout the procedure. The physical status of the patient was re-assessed after the procedure. After I obtained informed consent, the scope was passed under direct vision. Throughout the procedure, the patient's blood pressure, pulse, and oxygen saturations were monitored continuously. The colonoscope was introduced through the anus and advanced to the cecum, identified by the ileocecal valve. The colonoscopy was performed without difficulty. The patient tolerated the procedure well. No bowel preparation was given prior to the procedure. The quality of visualization was poor. Scope In: 4:52:23 PM Scope Out: 5:26:54 PM Total Procedure Duration Time 0 hours 34 minutes 31 seconds Findings: Liquid semi-liquid semi-solid solid stool was found in the entire colon. Lavage of the area was performed using greater than 500 mL of sterile water, resulting in incomplete clearance with continued poor visualization. A colonic decompression tube was placed. Impression: - Stool in the entire examined colon. - No specimens collected. Recommendation: - [facility]. - Full liquid diet. - Continue present medications. - No recommendation at this time regarding repeat colonoscopy due to age. Procedure Code(s): --- Professional --- 46046, Colonoscopy, flexible; with decompression (for pathologic distention) (eg, volvulus, megacolon), including placement of decompression tube, when performed CPT copyright 2021 [employer]. All rights reserved. The codes documented in this report are preliminary and upon civil preparedness training officer review may be revised to meet current compliance requirements. Jr Arthur DO 12/15/2023 5:34:43 PM This report has been signed electronically. Number of Addenda: 0 Note Initiated On: 12/15/2023 4:31 PM
--- NOTE | 2023-12-15 17:35 | OP.CCLET_ITS ---
12/15/2023 Rayo Lanza Do Re : Colonoscopy procedure for R Hafsa Dear Dr. Lanza This procedure was performed on Friday, December 15, 2023. My impressions and recommendations are as follows: Impressions : - Stool in the entire examined colon. - No specimens collected. Recommendations : - [facility]. - Full liquid diet. - Continue present medications. - No recommendation at this time regarding repeat colonoscopy due to age. My findings are described in the full procedure note, which is enclosed. If I can be of further assistance, please feel free to contact me at . Sincerely, Jr Arthur, 12/15/2023 5:34:43 PM This report has been signed electronically.
[2023-12-15] MEDS: Metoclopramide 10 MG/2 ML Vial IV (20:01)
[2023-12-15] MEDS: Azithromycin 500 MG in Dextrose 5%-Water (250mL Bag) 250 ML 250 MG IV (20:05)
[2023-12-15] MEDS: Senna/Docusate Sodium 1 Tablet 2 TABLET PO (21:49)
[2023-12-15] MEDS: oxyCODONE 5 MG Tablet PO (22:22)
[2023-12-16] MEDS: Metoclopramide 10 MG/2 ML Vial IV ×3 (00:22→11:32)
[2023-12-16 03:44] VITALS: BP 103/68; PULSE 76; RESP 16; TEMP 36.7; O2SAT 93
[2023-12-16] MEDS: oxyCODONE 5 MG Tablet PO (03:51)
[2023-12-16] MEDS: metroNIDAZOLE 500 MG/100 ML BAG 100 MG IV ×3 (06:05→22:56)
[2023-12-16 06:08] VITALS: BP 104/62; PULSE 69; RESP 16; TEMP 36.6; O2SAT 95
[2023-12-16 06:27] LABS: Absolute Lymphocyte Count 1.21 X10^3/uL (0.83-4.51); Absolute Neutrophil Count 12.9 X10^3/uL (2.0-7.7); Basophil# 0.04 X10^3/uL; Basophil% 0.2 % (0-1); Eosinophil# 0.34 X10^3/uL; Eosinophils% 2.1 % (0-5); Hematocrit 39.1 % (40-54); Hemoglobin 12.9 g/dL (13.0-16.5); Lymphocyte # 1.21 X10^3/ul (0.83-4.51); Lymphocyte % 7.4 % (19-41); Mean Corpuscular Hgb 32.2 pg (27.0-32.0); Mean Corpuscular Volume 97.5 fL (80-94); Mean Platelet Vol. 10.9 fl (6.2-12.0); Monocyte# 1.37 X10^3/uL; Monocyte% 8.4 % (0-10); NRBC Flagged by Analyzer 0 % (0-5); Neutrophil # 12.89 X10^3/uL (2.7-7.7); Neutrophil % 79.2 % (47-70); Platelet Count 202 K/mm3 (150-450); RBC Distribution Width CV 12.5 % (11.6-14.6); RBC Distribution Width SD 44.2 fl (35.1-43.9); Red Blood Count 4.01 M/mm3 (4.6-6.2); White Blood Count 16.3 K/mm3 (4.4-11.0)
[2023-12-16] MEDS: Acetaminophen 325 MG Tablet 650 MG PO ×2 (06:41→12:27)
[2023-12-16 06:58] LABS: Prothrombin Time (Protime)PT. 30.6 SECONDS (11.7-14.9)
[2023-12-16 07:13] LABS: Anion Gap 4 (5-15); BUN 26 mg/dL (7-18); BUN/Creat Ratio 51.1 RATIO (10-20); Calcium,Total 7.8 mg/dL (8.5-10.1); Chloride 107 mmol/L (98-107); Creatinine, Serum 0.51 mg/dL (0.70-1.30); EST Glomerular Filtration Rate 163 mL/min (>60); Est Glom Filt Rate - Afr Amer 197 mL/min (>60); Glucose 115 mg/dL (74-106); Sodium Level 135 mmol/L (136-145)
[2023-12-16 07:26] VITALS: O2SAT 93
[2023-12-16] MEDS: Lactobacillis Acidophilus 1 CAP PO (09:10)
[2023-12-16] MEDS: Senna/Docusate Sodium 1 Tablet 2 TABLET PO ×2 (09:10→22:57)
[2023-12-16] MEDS: Azithromycin 500 MG in Dextrose 5%-Water (250mL Bag) 250 ML 250 MG IV (09:10)
[2023-12-16] MEDS: Menthol/Lanolin/Calamine/Znox 113 GM Tube 1 APPLIC TOPICAL ×2 (09:11→22:56)
--- NOTE | 2023-12-16 10:39 | NURSING ---
called therapy and left msg for them to check in pt room again for therapy
[2023-12-16 10:44] VITALS: BP 109/66; PULSE 64; PULSE 66; RESP 18; TEMP 36.7; O2SAT 97
--- NOTE | 2023-12-16 11:08 | PCM.PN.HOSP ---
Subjective Subjective Doing well, no issues overnight. Abdominal distention and pain improved rectal tube in place Objective Data Objective Data Vital Signs: Vital Signs Temp Pulse Resp BP Pulse Ox O2 Del Method O2 Flow Rate 98.0 F 66 18 109/66 97 Room Air 2 12/16/23 10:44 12/16/23 10:44 12/16/23 10:44 12/16/23 10:44 12/16/23 10:44 12/16/23 10:44 12/16/23 07:26 Oxygen Flow Rate (L/min) 2 Oxygen Delivery Method Room Air Weight: 179 lb 10.828 oz Body Mass Index (BMI) 25.7 Intake & Output: Intake and Output for Last 24 Hours 12/15/23 12/16/23 12/17/23 03:59 03:59 03:59 Intake Total 1050 / 1050 3005 / 3005 1200 / 1200 Output Total 650 / 650 1100 / 1100 250 / 250 Balance 400 / 400 1905 / 1905 950 / 950 Lab / Micro Data 12/16/23 06:05 12/16/23 06:05 Labs: Laboratory Results - last 24 hr 12/15/23 04:25: Diff Path Review Reviewed 12/16/23 06:05: WBC 16.3 H, RBC 4.01 L, Hgb 12.9 L, Hct 39.1 L, MCV 97.5 H, MCH 32.2 H, MCHC 33.0, RDW Std Deviation 44.2 H, RDW Coeff of Isabel 12.5, Plt Count 202, MPV 10.9, Immature Gran % (Auto) 2.700 H, Neut % (Auto) 79.2 H, Lymph % (Auto) 7.4 L, [place] % (Auto) 8.4, Eos % (Auto) 2.1, Baso % (Auto) 0.2, Absolute Neuts (auto) 12.9 H, Absolute Lymphs (auto) 1.21, Nucleated RBC % 0, PT 30.6 H, INR 3.0, Sodium 135 L, Potassium 4.0, Chloride 107, Carbon Dioxide 24.0, Anion Gap 4 L, BUN 26 H, Creatinine 0.51 L, Estim Creat Clear Calc 65.90, Est GFR (MDRD) Af Amer 197, Est GFR (MDRD) Non-Af 163, BUN/Creatinine Ratio 51.1 H, Glucose 115 H, Calcium 7.8 L Physical Exam Narrative General: Alert, Oriented x2, Cooperative, No apparent distress HEENT: Atraumatic, PERRLA, EOMI, Normocephalic Oral: Moist Mucosa Neck: C-collar in place Lungs: Diminished, Normal air movement, No rhonchi, No wheeze, No rales Cardiovascular: Regular rate, Regular Rhythm, Normal S1, Normal S2, No murmurs Abdomen: Soft, Non Tender, Non-Distended, No Hepato-splenomegaly Extremities: No edema, Capillary Refill Less than 3 Seconds Skin: No rashes, No breakdown Musculoskeletal: No Tenderness to Palpation of Joints or Extremities Neurological: No focal neurological deficits, moves all extremities Psych/Mental Status: Flat Assessment & Plan Assessment/Plan (1) Fecal impaction in rectum: (2) Ileus: PLAN: Plan 1. Colonic ileus with fecal distention and pseudoobstruction ? Rectal tube and colonoscopy done yesterday leukocytosis is improving, continue with Flagyl ? Attempted GoLytely which she did not tolerate very well ? He is on chronic dexamethasone which likely explains his leukocytosis specially in the setting of pseudoobstruction and colonic dilatation 2. Possible UTI ? He does have an indwelling catheter but UA is positive ? Continue on Rocephin ? Urine cultures pending 3. Chronic A-fib/HLD ? She is on Coumadin and is therapeutic ? Will hold Coumadin ? Will hold his oral medications 4. Osteoporosis ? Will hold his alendronate 5. Debility ? He is in TCU recovering from a C2 fracture ? Continue with c-collar ? PT/OT DVT: Therapeutic INR Charges/Coding Visit Charges Inpatient E&M: 24619 Subs Hosp L2
--- NOTE | 2023-12-16 12:17 | NURSING ---
assisted pt w/ eating lunch, pt says he can't feed himself but this nurse personally witnessed him eating on 12/07 in TCU unit a complete ,eal himself-talked to pt about doing ankle pumps, knee lifts and arm strengthening exercises-right arm is weaker than left but pt able to feed self with left hand, no coughing witnessed during eating of ice cream, custard or cranberry juice
[2023-12-16] MEDS: traMADol 50 MG Tablet PO ×2 (12:25→22:58)
--- NOTE | 2023-12-16 15:00 | CASEMGMT ---
SW went to patient's room to confirm his discharge plan. There was a sign on patient's door asking that patient not be disturbed and lights were off in room. SW will check back with patient. Lizet Quijano PIT LABORERAyaka BARRERA
--- NOTE | 2023-12-16 19:33 | EX.PCM.PN.GI ---
Subjective Subjective The patient underwent colonic decompression yesterday. He is still little bloated today. He had a large bowel movement yesterday. He only had a small bowel movement today. There is not much drainage out from the rectal tube. He is not really eating much and is not moving around. He still requiring narcotics for pain. Objective Data Objective Data Vital Signs: Vital Signs Temp Pulse Resp BP Pulse Ox O2 Del Method O2 Flow Rate 98.0 F 66 18 109/66 97 Room Air 2 12/16/23 10:44 12/16/23 10:44 12/16/23 10:44 12/16/23 10:44 12/16/23 10:44 12/16/23 10:44 12/16/23 07:26 Oxygen Flow Rate (L/min) 2 Oxygen Delivery Method Room Air Weight: 179 lb 10.828 oz Body Mass Index (BMI) 25.7 Intake & Output: Intake and Output for Last 24 Hours 12/14/23 12/15/23 12/16/23 23:59 23:59 23:59 Intake Total 3855 / 4055 2155 / 2155 Output Total 1450 / 1750 850 / 850 Balance 2405 / 2305 1305 / 1305 Lab / Micro Data 12/16/23 06:05 12/16/23 06:05 Labs: Laboratory Results - last 24 hr 12/16/23 06:05: WBC 16.3 H, RBC 4.01 L, Hgb 12.9 L, Hct 39.1 L, MCV 97.5 H, MCH 32.2 H, MCHC 33.0, RDW Std Deviation 44.2 H, RDW Coeff of Isabel 12.5, Plt Count 202, MPV 10.9, Immature Gran % (Auto) 2.700 H, Neut % (Auto) 79.2 H, Lymph % (Auto) 7.4 L, [place] % (Auto) 8.4, Eos % (Auto) 2.1, Baso % (Auto) 0.2, Absolute Neuts (auto) 12.9 H, Absolute Lymphs (auto) 1.21, Nucleated RBC % 0, PT 30.6 H, INR 3.0, Sodium 135 L, Potassium 4.0, Chloride 107, Carbon Dioxide 24.0, Anion Gap 4 L, BUN 26 H, Creatinine 0.51 L, Estim Creat Clear Calc 65.90, Est GFR (MDRD) Af Amer 197, Est GFR (MDRD) Non-Af 163, BUN/Creatinine Ratio 51.1 H, Glucose 115 H, Calcium 7.8 L Micro: Microbiology 12/15/23 04:15 Urine Catheter - Calixto Urine Culture - Preliminary Culture exhibits no growth. Physical Exam Narrative General: Alert, Oriented x2, Cooperative, No apparent distress HEENT: Atraumatic, PERRLA, EOMI, Normocephalic Oral: Moist Mucosa Neck: C-collar in place Lungs: Diminished, Normal air movement, No rhonchi, No wheeze, No rales Cardiovascular: Regular rate, Regular Rhythm, Normal S1, Normal S2, No murmurs Abdomen: Soft, Non Tender, Non-Distended, No Hepato-splenomegaly Extremities: No edema, Capillary Refill Less than 3 Seconds Skin: No rashes, No breakdown Musculoskeletal: No Tenderness to Palpation of Joints or Extremities Neurological: No focal neurological deficits, moves all extremities Psych/Mental Status: Flat Assessment & Plan Assessment/Plan (1) Fecal impaction in rectum: (2) Colonic pseudoobstruction: PLAN: Plan 88-year-old gentleman with recent neck fracture from TCU who was not a surgical candidate presents with acute onset of abdominal distention and discovered to have acute pseudoobstruction due to pain medicine and not moving. He is status post colonic decompression and rectal tube insertion postop day 1. Recommendation to DC opioid pain medication. Continue senna twice a day, MiraLAX and antibiotics to promote GI motility. Encourage movement including ambulation. Supplement with Ensure or boost. Repeat imaging tomorrow. Charges/Coding Visit Charges Inpatient E&M: 75205 Subs Hosp L3
[2023-12-16 22:02] VITALS: BP 114/70; PULSE 74; RESP 16; TEMP 36.4; O2SAT 94
[2023-12-16] MEDS: 0.9% Saline Lock 10 ML Syringe IV (22:04)
[2023-12-16] MEDS: Ceftriaxone 1 GM/50 ML BAG IV (22:04)
[2023-12-16] MEDS: Acetaminophen 500 MG Tablet 1000 MG PO (22:58)
[2023-12-17] MEDS: Metoclopramide 10 MG/2 ML Vial IV ×4 (00:56→16:33)
[2023-12-17] MEDS: 0.9% Saline Lock 10 ML Syringe IV ×2 (00:56→05:17)
[2023-12-17 04:00] VITALS: BP 113/67; PULSE 75; RESP 16; TEMP 36.5; O2SAT 97
[2023-12-17] MEDS: Acetaminophen 500 MG Tablet 1000 MG PO ×3 (05:17→21:40)
[2023-12-17] MEDS: metroNIDAZOLE 500 MG/100 ML BAG 100 MG IV ×3 (05:18→21:57)
[2023-12-17 05:47] LABS: Absolute Lymphocyte Count 1.37 X10^3/uL (0.83-4.51); Absolute Neutrophil Count 10.6 X10^3/uL (2.0-7.7); Basophil# 0.03 X10^3/uL; Basophil% 0.2 % (0-1); Eosinophil# 0.36 X10^3/uL; Eosinophils% 2.6 % (0-5); Hematocrit 40.1 % (40-54); Hemoglobin 13.4 g/dL (13.0-16.5); Lymphocyte # 1.37 X10^3/ul (0.83-4.51); Lymphocyte % 9.8 % (19-41); Mean Corp Hgb Conc 33.4 g/dL (32-36); Mean Corpuscular Hgb 32.2 pg (27.0-32.0); Mean Corpuscular Volume 96.4 fL (80-94); Mean Platelet Vol. 10.2 fl (6.2-12.0); Monocyte# 1.12 X10^3/uL; NRBC Flagged by Analyzer 0 % (0-5); Neutrophil # 10.62 X10^3/uL (2.7-7.7); Neutrophil % 76.3 % (47-70); Platelet Count 210 K/mm3 (150-450); RBC Distribution Width CV 12.3 % (11.6-14.6); RBC Distribution Width SD 42.9 fl (35.1-43.9); Red Blood Count 4.16 M/mm3 (4.6-6.2); White Blood Count 13.9 K/mm3 (4.4-11.0)
[2023-12-17 06:31] LABS: International Normalized Ratio 2.5; Prothrombin Time (Protime)PT. 26.6 SECONDS (11.7-14.9)
[2023-12-17 06:36] LABS: Anion Gap 5 (5-15); BUN 20 mg/dL (7-18); Calcium,Total 8.1 mg/dL (8.5-10.1); Chloride 104 mmol/L (98-107); Creatinine, Serum 0.44 mg/dL (0.70-1.30); EST Glomerular Filtration Rate 191 mL/min (>60); Est Glom Filt Rate - Afr Amer 231 mL/min (>60); Glucose 111 mg/dL (74-106); Sodium Level 132 mmol/L (136-145)
--- NOTE | 2023-12-17 08:38 | PN.HOSP_ITS ---
Subjective Subjective Doing well, no issues overnight Objective Data Objective Data Vital Signs: Vital Signs Temp Pulse Resp BP Pulse Ox O2 Del Method O2 Flow Rate 97.7 F L 75 16 113/67 97 Nasal Cannula 2 12/17/23 04:00 12/17/23 04:00 12/17/23 04:00 12/17/23 04:00 12/17/23 04:00 12/17/23 04:00 12/17/23 04:00 Oxygen Flow Rate (L/min) 2 Oxygen Delivery Method Nasal Cannula Weight: 179 lb 10.828 oz Body Mass Index (BMI) 25.7 Intake & Output: Intake and Output for Last 24 Hours 12/16/23 12/17/23 12/18/23 03:59 03:59 03:59 Intake Total 3005 / 3005 2105 / 2105 100 / 100 Output Total 1100 / 1100 1150 / 1150 400 / 400 Balance 1905 / 1905 955 / 955 -300 / -300 Lab / Micro Data 12/17/23 05:38 12/17/23 05:38 Labs: Laboratory Results - last 24 hr 12/17/23 05:38: WBC 13.9 H, RBC 4.16 L, Hgb 13.4, Hct 40.1, MCV 96.4 H, MCH 32.2 H, MCHC 33.4, RDW Std Deviation 42.9, RDW Coeff of Isabel 12.3, Plt Count 210, MPV 10.2, Immature Gran % (Auto) 3.100 H, Neut % (Auto) 76.3 H, Lymph % (Auto) 9.8 L , [place] % (Auto) 8.0, Eos % (Auto) 2.6, Baso % (Auto) 0.2, Absolute Neuts (auto) 10.6 H, Absolute Lymphs (auto) 1.37, Nucleated RBC % 0, PT 26.6 H, INR 2.5, S odium 132 L, Potassium 4.0, Chloride 104, Carbon Dioxide 23.0, Anion Gap 5, BUN 20 H, Creatinine 0.44 L, Estim Creat Clear Calc 65.90, Est GFR (MDRD) Af Amer 231, Est GFR (MDRD) Non-Af 191, BUN/Creatinine Ratio 45.0 H, Glucose 111 H, C alcium 8.1 L Micro: Microbiology 12/15/23 00:03 Blood Culture (Wb) - Left Wrist Blood Culture - Preliminary No growth in 48 hours. 12/15/23 04:15 Urine Catheter - Calixto Urine Culture - Preliminary Culture exhibits no growth. Physical Exam Narrative General: Alert, Oriented x2, Cooperative, No apparent distress HEENT: Atraumatic, PERRLA, EOMI, Normocephalic Oral: Moist Mucosa Neck: C-collar in place Lungs: Diminished, Normal air movement, No rhonchi, No wheeze, No rales Cardiovascular: Regular rate, Regular Rhythm, Normal S1, Normal S2, No murmurs Abdomen: Soft, Non Tender, Non-Distended, No Hepato-splenomegaly Extremities: No edema, Capillary Refill Less than 3 Seconds Skin: No rashes, No breakdown Musculoskeletal: No Tenderness to Palpation of Joints or Extremities Neurological: No focal neurological deficits, moves all extremities Psych/Mental Status: Flat Assessment & Plan Assessment/Plan (1) Fecal impaction in rectum: (2) Ileus: PLAN: Plan 1. Colonic ileus with fecal distention and pseudoobstruction ? Rectal tube and colonoscopy done 12/15/2023 leukocytosis is improving, continue with Flagyl ? Attempted GoLytely which he did not tolerate very well ? He is on chronic dexamethasone which likely explains his leukocytosis specially in the setting of pseudoobstruction and colonic dilatation ? Continue with MiraLAX 2. Possible UTI ? He does have an indwelling catheter but UA is positive ? Continue on Rocephin ? Urine cultures pending, with greater than 100,000 gram-negative misty 3. Chronic A-fib/HLD ? He is on Coumadin and is therapeutic ? Will hold Coumadin ? Will hold his oral medications 4. Osteoporosis ? Will hold his alendronate 5. Debility ? He is in TCU recovering from a C2 fracture ? Continue with c-collar until 01/01/2024 at which point he can be cleared and transition to a soft collar potentially ? PT/OT DVT: Therapeutic INR Charges/Coding Visit Charges Inpatient E&M: 44588 Subs Hosp L2
[2023-12-17 08:57] VITALS: PULSE 70; RESP 18; O2SAT 95
[2023-12-17 09:03] VITALS: BP 114/55; PULSE 70; RESP 18; TEMP 36.6; O2SAT 95
[2023-12-17] MEDS: Azithromycin 500 MG in Dextrose 5%-Water (250mL Bag) 250 ML 250 MG IV (10:25)
[2023-12-17] MEDS: Polyethylene Glycol 3350 17 GM PACKET PO (10:26)
[2023-12-17] MEDS: Senna/Docusate Sodium 1 Tablet 2 TABLET PO ×2 (10:26→21:41)
[2023-12-17] MEDS: Menthol/Lanolin/Calamine/Znox 113 GM Tube 1 APPLIC TOPICAL ×2 (10:26→21:54)
[2023-12-17] MEDS: Lactobacillis Acidophilus 1 CAP PO (10:26)
--- NOTE | 2023-12-17 10:34 | NURSING ---
pt up in chair, visitors at bedside- right hand weaker than left, strong grasp with left when asked
[2023-12-17] MEDS: traMADol 50 MG Tablet PO (12:57)
[2023-12-17 16:23] VITALS: PULSE 77; RESP 18
[2023-12-17 20:00] VITALS: BP 112/72; PULSE 73; RESP 18; TEMP 37; O2SAT 96
[2023-12-17] MEDS: Ceftriaxone 1 GM/50 ML BAG IV (21:56)
[2023-12-18] MEDS: traMADol 50 MG Tablet PO ×3 (00:13→17:58)
[2023-12-18] MEDS: Metoclopramide 10 MG/2 ML Vial IV ×4 (00:13→17:22)
[2023-12-18 02:00] VITALS: BP 99/56; PULSE 75; RESP 18; TEMP 36.9; O2SAT 97
[2023-12-18] MEDS: metroNIDAZOLE 500 MG/100 ML BAG 100 MG IV ×3 (05:54→22:20)
[2023-12-18] MEDS: Acetaminophen 500 MG Tablet 1000 MG PO ×3 (05:55→21:51)
[2023-12-18 06:20] LABS: Absolute Lymphocyte Count 1.38 X10^3/uL (0.83-4.51); Absolute Neutrophil Count 9.1 X10^3/uL (2.0-7.7); Basophil# 0.11 X10^3/uL; Basophil% 0.9 % (0-1); Eosinophils% 2.3 % (0-5); Hemoglobin 13.8 g/dL (13.0-16.5); Lymphocyte # 1.38 X10^3/ul (0.83-4.51); Lymphocyte % 10.8 % (19-41); Mean Corp Hgb Conc 32.9 g/dL (32-36); Mean Corpuscular Hgb 31.6 pg (27.0-32.0); Mean Corpuscular Volume 96.1 fL (80-94); Mean Platelet Vol. 10.7 fl (6.2-12.0); Monocyte# 1.33 X10^3/uL; Monocyte% 10.4 % (0-10); NRBC Flagged by Analyzer 0 % (0-5); Neutrophil # 9.05 X10^3/uL (2.7-7.7); Neutrophil % 70.7 % (47-70); Platelet Count 208 K/mm3 (150-450); RBC Distribution Width CV 12.2 % (11.6-14.6); Red Blood Count 4.37 M/mm3 (4.6-6.2); White Blood Count 12.8 K/mm3 (4.4-11.0)
[2023-12-18 06:36] LABS: International Normalized Ratio 2.3; Prothrombin Time (Protime)PT. 25.5 SECONDS (11.7-14.9)
[2023-12-18 06:46] LABS: Anion Gap 5 (5-15); BUN 14 mg/dL (7-18); BUN/Creat Ratio 24.7 RATIO (10-20); Calcium,Total 8.2 mg/dL (8.5-10.1); Chloride 101 mmol/L (98-107); Creatinine, Serum 0.57 mg/dL (0.70-1.30); EST Glomerular Filtration Rate 144 mL/min (>60); Est Glom Filt Rate - Afr Amer 174 mL/min (>60); Glucose 108 mg/dL (74-106); Potassium 3.8 mmol/L (3.5-5.1); Sodium Level 132 mmol/L (136-145)
[2023-12-18 06:53] VITALS: O2SAT 93
[2023-12-18] MEDS: Menthol/Lanolin/Calamine/Znox 113 GM Tube 1 APPLIC TOPICAL ×2 (08:08→21:52)
[2023-12-18] MEDS: Lactobacillis Acidophilus 1 CAP PO (08:08)
[2023-12-18] MEDS: Senna/Docusate Sodium 1 Tablet 2 TABLET PO ×2 (08:09→21:51)
[2023-12-18] MEDS: Polyethylene Glycol 3350 17 GM PACKET PO (08:24)
--- NOTE | 2023-12-18 08:56 | RAD_ITS ---
STUDY: X-RAY - ABDOMEN/PELVIS REASON FOR EXAM: Male, 88 years old. Abdominal pain and distention TECHNIQUE: Two AP supine views of the abdomen and pelvis. COMPARISON: 12/14/2023 FINDINGS: Some type of catheter is now noted over the pelvis. Bowel gas pattern suggests ileus with nondistended loops of small and large bowel throughout the abdomen. However, there has been overall improvement compared to the previous study. The visualized liver, spleen and kidneys are grossly normal in size and morphology. Normal soft tissue structures. There are diffuse degenerative changes of the visualized lumbar spine. RAD/Abdomen Single View IMPRESSION: Persistent colonic ileus though there has been improvement since the previous study Electronically Signed: Johan Jenkins MD at 9:38 EDT ,
--- NOTE | 2023-12-18 09:06 | PCM.PN.HOSP ---
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 He was admitted with severe constipation. Underwent colonoscopy with rectal tube placement Objective Data Objective Data Vital Signs: Vital Signs Temp Pulse Resp BP Pulse Ox O2 Del Method O2 Flow Rate 98.4 F 75 18 99/56 L 93 Nasal Cannula 2 12/18/23 02:00 12/18/23 02:00 12/18/23 02:00 12/18/23 02:00 12/18/23 06:53 12/18/23 06:53 12/18/23 06:53 FiO2 95 12/17/23 16:23 Oxygen Flow Rate (L/min) 2 Oxygen Delivery Method Nasal Cannula Weight: 81.5 kg Body Mass Index (BMI) 25.7 Intake & Output: Intake and Output for Last 24 Hours 12/16/23 12/17/23 12/18/23 23:59 23:59 23:59 Intake Total 2305 / 2305 1355 / 1635 660 / 660 Output Total 850 / 1450 1600 / 2050 800 / 800 Balance 1455 / 855 -245 / -415 -140 / -140 Lab / Micro Data 12/18/23 05:55 12/18/23 05:55 Labs: Laboratory Results - last 24 hr 12/18/23 05:55: WBC 12.8 H, RBC 4.37 L, Hgb 13.8, Hct 42.0, MCV 96.1 H, MCH 31.6, MCHC 32.9, RDW Std Deviation 43.0, RDW Coeff of Isabel 12.2, Plt Count 208, MPV 10.7, Immature Gran % (Auto) 4.900 H, Neut % (Auto) 70.7 H, Lymph % (Auto) 10.8 L, [place] % (Auto) 10.4 H, Eos % (Auto) 2.3, Baso % (Auto) 0.9, Absolute Neuts (auto) 9.1 H, Absolute Lymphs (auto) 1.38, Nucleated RBC % 0, PT 25.5 H, INR 2.3, Sodium 132 L, Potassium 3.8, Chloride 101, Carbon Dioxide 26.0, Anion Gap 5, BUN 14, Creatinine 0.57 L, Estim Creat Clear Calc 65.90, Est GFR (MDRD) Af Amer 174, Est GFR (MDRD) Non-Af 144, BUN/Creatinine Ratio 24.7 H, Glucose 108 H, Calcium 8.2 L Micro: Microbiology 12/15/23 04:15 Urine Catheter - Calixto Urine Culture - Final Culture exhibits no growth. 12/15/23 00:03 Blood Culture (Wb) - Left Wrist Blood Culture - Preliminary No growth in 48 hours. Physical Exam Narrative GENERAL: cooperative HEENT: Neck in c-collar EYES; Anicteric, Normal Conjunctiva NECK; supple, normal thyroid, RESPIRATORY: Diminished to auscultation CARDIOVASCULAR: Regular S1 S2, GI: soft, normoactive bowel sounds, : No Renal angle tenderness; EXTREMITIES: No edema, no clubbing, MUSCULOSKELETAL: no muscle wasting NEURO: Awake; no lateralizing signs. SKIN: No Rash PSYCH; Flat affect Assessment & Plan Assessment/Plan (1) Fecal impaction in rectum: (2) Ileus: PLAN: Plan Patient is an 88-year-old gentleman who was transferred from TCU where he is currently on admission for fall with C2 fracture currently in a rigid neck collar. He was admitted with severe constipation. Underwent colonoscopy with rectal tube placement 1. Colonic ileus with fecal distention and pseudoobstruction ? Rectal tube and colonoscopy done performed on 12/15/2023. Patient was noted to have elevated WBC count subsequently placed on Flagyl. GI consulted 2. Acute cystitis with Citrobacter species ? Patient started on ceftriaxone 3. Physical debility ? Following fall with C2 fracture. Has not had neck collar 4. Dyslipidemia ?Patient is on statin therapy, continued at home dose 5. Paroxysmal A-fib ? Patient is on Coumadin which is currently being held 6. Osteoporosis ? Patient is on alendronate plan is to resume on discharge 7. DVT prophylaxis ? Patient is on Coumadin which is currently being held Time spent in the patient's overall evaluation,decision-making process, review of diagnostic data, adjustment of management, discussion with other providers, nursing nursing and ancillary staff involved in patient's care documentation, 36 minutes Charges/Coding Visit Charges Inpatient E&M: 10924 Subs Hosp L2
[2023-12-18 09:25] VITALS: BP 96/58; PULSE 65; RESP 18; TEMP 36.6
[2023-12-18] MEDS: Azithromycin 500 MG in Dextrose 5%-Water (250mL Bag) 250 ML 250 MG IV (09:48)
[2023-12-18] MEDS: 0.9% Saline Lock 10 ML Syringe IV ×3 (09:49→13:49)
--- NOTE | 2023-12-18 11:52 | CASEMGMT ---
Social Work- SW received word that TCU is able to accept pt back and received precert. Pt can d/c when medically ready. Physician updated.Pt updated. GREGG Correa
--- NOTE | 2023-12-18 12:37 | CASEMGMT ---
Social Work- Pt has directives on file naming Emeli as primary agent; Chandni and Hannah as secondary agents. GREGG Correa
[2023-12-18 14:05] VITALS: BP 106/75; PULSE 81; RESP 20; TEMP 36.7; O2SAT 94
--- NOTE | 2023-12-18 15:30 | CHAPLAIN ---
Type of Pastoral Visit _x__ Initial Visit ___ Follow-up Visit ___ On-call Visit ___ General Patient Visit ___ Spiritual Assessment ___ Family Conference ___ Bereavement ___ Rapid Response ___ Code Blue ___ Other (describe below) Pastoral Care Referral From _x__ Patient ___ Family ___ Nurse ___ Physician ___ Director Mission ___ Outsole Cutter Machine ___ Other (describe below) Sacrament/Intervention _x__ Active listening ___ Anointing ___ Yazidism ___ Bereavement ___ Communion _x__ Belen exploration ___ _x__ Life review _x__ Prayer ___ Reconciliation ___ Sacrament of Sick _x__ Supportive presence ___ Wedding ___ Other (describe below) Pastoral Comments patient is very welcoming and identifies self as a Druze believer; pt had his crusher setter visit earlier; pt is listening to [employer] music on the radio and speaks of how it is encouraging to him; pt reveals that he has had much change in his life over last year as his spouse and two brothers have ; pt is tearful; support, affirmation, listening ear, and prayer are given in support; family members come into the room and interact with this senior staff consultant as well; pt requests that another visit be given this week if possible
[2023-12-18] MEDS: Ensure Plus High Protein 120 ML LIQUID PO (17:22)
[2023-12-18 20:00] VITALS: O2SAT 94
[2023-12-18 22:00] VITALS: BP 120/88; PULSE 81; RESP 16; TEMP 37; O2SAT 94
[2023-12-18] MEDS: Ceftriaxone 1 GM/50 ML BAG IV (23:15)
[2023-12-19] MEDS: traMADol 50 MG Tablet PO ×3 (00:36→18:13)
[2023-12-19 04:00] VITALS: BP 122/81; PULSE 78; RESP 16; TEMP 36.8; O2SAT 94
[2023-12-19] MEDS: metroNIDAZOLE 500 MG/100 ML BAG 100 MG IV ×2 (05:29→15:03)
[2023-12-19] MEDS: Acetaminophen 500 MG Tablet 1000 MG PO ×3 (05:29→22:24)
[2023-12-19] MEDS: Metoclopramide 10 MG/2 ML Vial IV ×4 (05:29→17:55)
--- NOTE | 2023-12-19 07:15 | PN.HOSP_ITS ---
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 Repeat imaging studies obtained the day prior demonstrated persistent colonic ileus with slight improvement since previous study. Diagnostic data significant for hypophosphatemia Objective Data Objective Data Vital Signs: Vital Signs Temp Pulse Resp BP Pulse Ox O2 Del Method O2 Flow Rate 98.2 F 78 16 122/81 H 94 Room Air 2 12/19/23 04:00 12/19/23 04:00 12/19/23 04:00 12/19/23 04:00 12/19/23 04:00 12/19/23 04:00 12/18/23 09:25 FiO2 95 12/17/23 16:23 Oxygen Flow Rate (L/min) 2 Oxygen Delivery Method Room Air Weight: 81.5 kg Body Mass Index (BMI) 25.7 Intake & Output: Intake and Output for Last 24 Hours 12/17/23 12/18/23 12/19/23 23:59 23:59 23:59 Intake Total 1355 / 1635 1165 / 1165 250 / 250 Output Total 1600 / 2050 1950 / 2400 850 / 850 Balance -245 / -415 -785 / -1235 -600 / -600 Lab / Micro Data 12/19/23 08:42 12/19/23 08:42 Micro: Microbiology 12/15/23 04:15 Urine Catheter - Calixto Urine Culture - Final Culture exhibits no growth. 12/15/23 00:03 Blood Culture (Wb) - Left Wrist Blood Culture - Preliminary No growth in 48 hours. Radiography Diagnostic Testing: Radiology Impression KUB X-Ray 12/18/23 08:56 IMPRESSION: Persistent colonic ileus though there has been improvement since the previous study Electronically Signed: Johan Jenkins MD at 9:38 EDT , Physical Exam Narrative GENERAL: cooperative HEENT: Neck in c-collar, with excoriations under the chin EYES; Anicteric, Normal Conjunctiva NECK; supple, normal thyroid, RESPIRATORY: Diminished to auscultation CARDIOVASCULAR: Regular S1 S2, GI: soft, normoactive bowel sounds, : No Renal angle tenderness; EXTREMITIES: No edema, no clubbing, MUSCULOSKELETAL: no muscle wasting NEURO: Awake; no lateralizing signs. SKIN: No Rash PSYCH; Flat affect Assessment & Plan Assessment/Plan (1) Fecal impaction in rectum: (2) Ileus: PLAN: Plan Patient is an 88-year-old gentleman who was transferred from TCU where he is currently on admission for fall with C2 fracture currently in a rigid neck collar. He was admitted with severe constipation. Underwent colonoscopy with rectal tube placement 1. Colonic ileus with fecal distention and pseudoobstruction ? Rectal tube and colonoscopy done performed on 12/15/2023. Patient was noted to have elevated WBC count subsequently placed on Flagyl. GI consulted ? 12/19/2023 imaging studies from 12/18/2023 demonstrated persistent colonic ileus with slight improvement since previous study. Rectal tube remains in place. 2. Acute cystitis with Citrobacter species ? Patient started on ceftriaxone 3. Physical debility ? Following fall with C2 fracture. Has not had neck collar 4. Dyslipidemia ?Patient is on statin therapy, continued at home dose 5. Paroxysmal A-fib ? Patient is on Coumadin which is currently being held 6. Osteoporosis ? Patient is on alendronate plan is to resume on discharge 7. DVT prophylaxis ? Patient is on Coumadin which is currently being held 8. Hypophosphatemia ? Corrected per protocol Time spent in the patient's overall evaluation,decision-making process, review of diagnostic data, adjustment of management, discussion with other providers, nursing nursing and ancillary staff involved in patient's care documentation, 36 minutes Charges/Coding Visit Charges Inpatient E&M: 88817 Subs Hosp L2
[2023-12-19 08:00] VITALS: O2SAT 94
[2023-12-19] MEDS: 0.9% Saline Lock 10 ML Syringe IV ×5 (08:07→17:55)
[2023-12-19 08:53] VITALS: BP 106/61; PULSE 69; RESP 15; TEMP 36.6; O2SAT 94
--- NOTE | 2023-12-19 08:54 | NURSING ---
phoned Dr. Coles office [phone] and spoke with Jane Rn regarding [place] collar. Per Jane Almeida Rn per Dr. Coles, it is okay to change [place] hard cervical collar and place a new one. Spoke with Mora in surgical supplies. Mora states that [facility] only carries the [employer] Cervical Collar from [place]. Phone call back to Dr. Coles office and informed that [facility] only carries [employer] Cervical Collar from [place]. Per Jane RN per Dr. Coles, it is okay to use [employer] Cervical Collar from [place]. Will notify hospitalist of above.
[2023-12-19 09:04] LABS: Absolute Neutrophil Count 6.5 X10^3/uL (2.0-7.7); Basophil# 0.05 X10^3/uL; Basophil% 0.5 % (0-1); Eosinophil# 0.26 X10^3/uL; Eosinophils% 2.7 % (0-5); Hematocrit 42.6 % (40-54); Hemoglobin 14.3 g/dL (13.0-16.5); Lymphocyte % 14.7 % (19-41); Mean Corp Hgb Conc 33.6 g/dL (32-36); Mean Corpuscular Volume 95.3 fL (80-94); Mean Platelet Vol. 10.4 fl (6.2-12.0); Monocyte# 0.84 X10^3/uL; Monocyte% 8.8 % (0-10); NRBC Flagged by Analyzer 0 % (0-5); Neutrophil % 68.6 % (47-70); Platelet Count 212 K/mm3 (150-450); RBC Distribution Width CV 12.4 % (11.6-14.6); RBC Distribution Width SD 42.8 fl (35.1-43.9); Red Blood Count 4.47 M/mm3 (4.6-6.2); White Blood Count 9.5 K/mm3 (4.4-11.0)
[2023-12-19 09:16] LABS: Anion Gap 6 (5-15); BUN 15 mg/dL (7-18); BUN/Creat Ratio 25.1 RATIO (10-20); Calcium,Total 8.4 mg/dL (8.5-10.1); Chloride 104 mmol/L (98-107); EST Glomerular Filtration Rate 136 mL/min (>60); Est Glom Filt Rate - Afr Amer 164 mL/min (>60); Glucose 111 mg/dL (74-106); Magnesium 2.1 mg/dL (1.6-2.6); Phosphorus 2.1 mg/dL (2.5-4.9); Potassium 3.9 mmol/L (3.5-5.1); Sodium Level 136 mmol/L (136-145)
[2023-12-19] MEDS: Menthol/Lanolin/Calamine/Znox 113 GM Tube 1 APPLIC TOPICAL ×2 (09:44→22:23)
[2023-12-19] MEDS: Lactobacillis Acidophilus 1 CAP PO (09:44)
[2023-12-19] MEDS: Senna/Docusate Sodium 1 Tablet 2 TABLET PO ×2 (09:47→22:24)
[2023-12-19] MEDS: NYSTATIN 500,000 UNIT/5 ML UDC 500000 UNIT PO ×4 (09:47→22:24)
[2023-12-19] MEDS: Polyethylene Glycol 3350 17 GM PACKET PO (09:47)
[2023-12-19] MEDS: Azithromycin 500 MG in Dextrose 5%-Water (250mL Bag) 250 ML 250 MG IV (10:07)
--- NOTE | 2023-12-19 14:50 | CASEMGMT ---
Social Work- SW met with pt to offer support and updates. Pt was pleasant and conversational. Pt wanted to share stories with SW and was complimentary of the care he has received. Pt was observed to have positive thought process and was future-oriented, speaking of going home after TCU. Pt agreeable to d/c to TCU when medically ready. GREGG Correa
[2023-12-19] MEDS: Potassium Phosphate 40 MM in 0.9% Normal Saline (500mL Bag) 500 ML 62.5 MM IV (15:02)
[2023-12-19] MEDS: Na Biphos/Potassium Phosphate PACKET 1 PACKET PO ×2 (15:02→22:24)
[2023-12-19 15:32] VITALS: BP 108/72; PULSE 72; RESP 17; TEMP 36.8; O2SAT 95
[2023-12-19 22:47] VITALS: BP 117/77; PULSE 77; RESP 18; TEMP 36.8; O2SAT 96
[2023-12-20] MEDS: traMADol 50 MG Tablet PO ×2 (00:09→08:58)
[2023-12-20] MEDS: Ceftriaxone 1 GM/50 ML BAG IV (00:09)
[2023-12-20] MEDS: Metoclopramide 10 MG/2 ML Vial IV ×2 (00:10→05:04)
[2023-12-20] MEDS: metroNIDAZOLE 500 MG/100 ML BAG 100 MG IV ×2 (01:05→05:04)
[2023-12-20 04:47] VITALS: BP 116/74; PULSE 71; RESP 18; TEMP 37; O2SAT 96
[2023-12-20] MEDS: Acetaminophen 500 MG Tablet 1000 MG PO (05:03)
[2023-12-20] MEDS: 0.9% Saline Lock 10 ML Syringe IV (05:04)
--- NOTE | 2023-12-20 08:02 | PCM.TXEXTCAR ---
Diet Diet Order/Speech Therapy: 12/17/23 17:55 Diet: Regular - General Food consistency:: Mechanical (Minced/Moist) Type of Dietary Supplement:: ibis CIB w/ meals Diet Comments: no tomato soup, no coffee. only BENDABLE straws, pt is a feed Wound(s) left side of penis: Wound Type: Abrasion left jaw line: Wound Type: Pressure Injury right jaw line: Wound Type: Pressure Injury Therapies Occupational Therapy: Eval and Treat Speech Therapy: Eval and Treat Problem/Diagnosis (1) Fecal impaction in rectum: Status: Acute Code(s): K56.41 - Fecal impaction (2) Ileus: Status: Acute Code(s): K56.7 - Ileus, unspecified Plan Patient is an 88-year-old gentleman who [facility] for [facility] with C2 fracture currently in a rigid neck collar. He was admitted with severe constipation. Underwent colonoscopy with rectal tube placement 1. Colonic ileus with fecal distention and pseudoobstruction ? Rectal tube and colonoscopy done performed on 12/15/2023. Patient was noted to have elevated WBC count subsequently placed on Flagyl. GI consulted ? 12/19/2023 imaging studies from 12/18/2023 demonstrated persistent colonic ileus with slight improvement since previous study. Rectal tube remains in place. 2. Acute cystitis with Citrobacter species ? Patient started on ceftriaxone 3. Physical debility ? Following fall with C2 fracture. Has not had neck collar 4. Dyslipidemia ?Patient is on statin therapy, continued at home dose 5. Paroxysmal A-fib ? Patient is on Coumadin which is currently being held 6. Osteoporosis ? Patient is on alendronate plan is to resume on discharge 7. DVT prophylaxis ? Patient is on Coumadin which is currently being held 8. Hypophosphatemia ? Corrected per protocol Time spent in the patient's overall evaluation,decision-making process, review of diagnostic data, adjustment of management, discussion with other providers, nursing nursing and ancillary staff involved in patient's care documentation, 36 minutes Allergies/Procedures Done in Hospital Allergies Penicillins Allergy (Mild, Verified 12/15/23 03:27) Rash Type of Care/Length of Stay Estimated LOS: Convalescent Care Less Than 30 days Type of Care Needed: Skilled Rehab Potential: Good Prognosis: Good Additional Orders/Day of Discharge Day of Discharge: 12/20/23 Dietary and Speech Recommendations Dietitian Recommendations/Changes: Provide chocolate CIB w/ meals and provide 4 oz chocolate ensure plus high protein 4x/day w/ medpass. Consider appetite stimulant to help encourage increased po intake at meals Discharge Plan Admission Admit Date/Time: 12/15/23 02:23 Attending Provider: Quan Pereira Primary Care Provider: Rayo Lanza Consulting Providers: Arias Palafox; Eddie Alex Discharge Orders/Prescriptions Prescriptions: New nystatin 100,000 unit/mL Suspension 500,000 unit PO 4X/DAY 10 Days Qty: 200 0RF acetaminophen 500 mg Tablet 1,000 mg PO Q8 Qty: 0 0RF nitroglycerin 0.4 mg Tablet, Sublingual 0.4 mg sublingual Q5M PRN (Reason: Cardiac/Chest Pain) Qty: 0 0RF potassium, sodium phosphates 280-160-250 mg Powder In Packet 1 packet PO BID Qty: 0 0RF menthol-zinc oxide [Calmoseptine] 0.44-20.6 % Ointment 1 applic topical BID Qty: 0 0RF Protocol: *Topical Application Instructions APPLICATION INSTRUCTIONS: apply to buttocks Ensure Plus High Protein 0.08 gram-1.5 kcal/mL Liquid 120 ml PO 4X/DAY Qty: 0 0RF tramadol 50 mg Tablet 50 mg PO Q6H PRN PRN (Reason: Pain Score 1-5) 2 Days Qty: 4 0RF polyethylene glycol 3350 17 gram/dose powder 17 g PO DAILY Qty: 119 0RF metoclopramide HCl [Reglan] 10 mg tablet 10 mg PO Q6H Qty: 20 0RF metronidazole 500 mg tablet 500 mg PO TID Qty: 20 0RF Continued alendronate 70 mg tablet 70 mg PO QWEEK dexamethasone 2 mg tablet 4 mg PO TID dexamethasone 2 mg tablet 4 mg PO BID dexamethasone 2 mg tablet 2 mg PO BID dexamethasone 2 mg tablet 2 mg PO DAILY dexamethasone 1 mg tablet 0.5 mg PO DAILY oxycodone 5 mg tablet 5 mg PO Q6H PRN (Reason: pain 1-10) warfarin 4 mg tablet 4 mg PO DAILY ascorbic acid (vitamin C) 500 mg capsule 500 mg PO DAILY glucosamine sulfate [Glucosamine] 500 mg tablet 500 mg PO DAILY Rx Instructions: administer with a meal aspirin 81 mg tablet,chewable 1 tab PO DAILY calcium citrate 250 mg calcium tablet 500 mg PO BID cholecalciferol (vitamin D3) 25 mcg (1,000 unit) capsule 25 mcg PO DAILY turmeric 400 mg capsule 400 mg PO DAILY Acidophilus Capsule 10 mg PO DAILY vitamin B complex [Vitamins B Complex] Capsule 1 cap PO DAILY multivitamin [Daily Multi-Vitamin] Tablet 1 tab PO DAILY vit C-E-zinc [id number] 250 mg-200 unit -12.5 mg-1 mg capsule 2 cap PO BID propafenone 225 mg tablet 225 mg PO TID simvastatin 10 mg tablet 5 mg PO QHS vitamin E 100 unit capsule 201 mg PO DAILY Discontinued acetaminophen 325 mg tablet 650 mg PO Q6H saw palmetto 500 mg capsule 500 mg PO DAILY Rx Instructions: give with food (meal/snack) Referrals / Follow Up: Francisco Coles MD [Non-Staff] - 01/01/24 9:00 am (need repeat xray of your neck. Go to [facility] ground floor Radiology Department on 01/01/2024 at 0900. From there, you will go over to the [facility] [address] for your appointment with Dr. Coles's Nurse Practitioner Brenda.) Rayo Lanza DO [Primary Care Provider] - Within 2 Weeks Disposition Disposition (needs filled in before D/C Order can be placed): Intermediate Facility
[2023-12-20 08:11] VITALS: O2SAT 93
--- NOTE | 2023-12-20 08:16 | DS.PCM_ITS ---
Providers Date of Admission: 12/15/23 Date of Discharge: 12/20/23 Primary Care Physician: Dr. Rayo Lanza, DO Consultations 12/15/23 07:05 Consult: Gastroenterology Routine Consulting Provider: [facility] Reason for Consult: colon ileus with constipation EMERGENT Consult: No MD Notified: Yes Date Notified: 12/15/23 Time Notified: 07:00 Method of Notification: Text Reason For Visit: CONSTIPATION, RECTAL DISTENSION Diagnosis Discharge Diagnosis (1) Fecal impaction in rectum: Status: Acute Code(s): K56.41 - Fecal impaction (2) Ileus: Status: Acute Code(s): K56.7 - Ileus, unspecified Plan Patient is an 88-year-old gentleman who was [facility] is currently on admission for fall with C2 fracture currently in a rigid neck collar. He was admitted with severe constipation. Underwent colonoscopy with rectal tube placement 1. Colonic ileus with fecal distention and pseudoobstruction ? Rectal tube and colonoscopy done performed on 12/15/2023. Patient was noted to have elevated WBC count subsequently placed on Flagyl. GI consulted ? 12/19/2023 imaging studies from 12/18/2023 demonstrated persistent colonic ileus with slight improvement since previous study. Rectal tube remains in place. ? 12/20/2023; patient was discharged back to the [facility] following discontinuation of the rectal tube 2. Acute cystitis with Citrobacter species ? Patient started on ceftriaxone 3. Physical debility ? Following fall with C2 fracture. Has not had neck collar 4. Dyslipidemia ?Patient is on statin therapy, continued at home dose 5. Paroxysmal A-fib ? Patient is on Coumadin which is currently being held 6. Osteoporosis ? Patient is on alendronate plan is to resume on discharge 7. DVT prophylaxis ? Patient is on Coumadin which is currently being held 8. Hypophosphatemia ? Corrected per protocol Time spent in the patient's overall evaluation,decision-making process, review of diagnostic data, adjustment of management, discussion with other providers, nursing nursing and ancillary staff involved in patient's care documentation, 36 minutes Medications at Discharge Home Medications Lactobacillus acidophilus (Acidophilus capsule) 10 mg PO DAILY supplement 12/12/23 alendronate 70 mg tablet 70 mg PO QWEEK bone health 12/12/23 ascorbic acid (vitamin C) 500 mg capsule 500 mg PO DAILY supplement 12/12/23 aspirin 81 mg chewable tablet 1 tab PO DAILY heart health 12/12/23 calcium citrate 500 mg PO BID supplement 12/12/23 cholecalciferol (vitamin D3) 25 mcg (1,000 unit) capsule 25 mcg PO DAILY supplement 12/12/23 dexamethasone 1 mg tablet 0.5 mg PO DAILY inflammation 12/12/23 dexamethasone 2 mg tablet 2 mg PO BID inflammation 12/12/23 dexamethasone 2 mg tablet 2 mg PO DAILY inflammation 12/12/23 dexamethasone 2 mg tablet 4 mg PO BID inflamation 12/12/23 dexamethasone 2 mg tablet 4 mg PO TID inflamation 12/12/23 glucosamine sulfate 500 mg tablet (Glucosamine) 500 mg PO DAILY supplement 12/12/23 multivitamin (Daily Multi-Vitamin tablet) 1 tab PO DAILY supplement 12/12/23 oxycodone 5 mg tablet 5 mg PO Q6H PRN pain 1-10 12/12/23 propafenone 225 mg tablet 225 mg PO TID AFIB 12/12/23 simvastatin 10 mg tablet 5 mg PO QHS cholesterol 12/12/23 turmeric 400 mg capsule 400 mg PO DAILY supplement 12/12/23 vit C 250 mg-vit E 200 unit-zinc ox 12.5 ok-dpbqli-xbzzdn-zeax capsule 2 cap PO BID supplement 12/12/23 vitamin B complex (Vitamins B Complex capsule) 1 cap PO DAILY supplement 12/12/23 vitamin E 100 unit capsule 201 mg PO DAILY supplement 12/12/23 warfarin 4 mg tablet 4 mg PO DAILY AFIB 12/12/23 acetaminophen 500 mg tablet 1,000 mg (2 x 500 mg) PO Q8 #0 tabs 12/20/23 food supplemt, lactose-reduced 0.08 gram-1.5 kcal/mL oral liquid (Ensure Plus High Protein) 120 ml PO 4X/DAY #0 mL 12/20/23 menthol 0.44 %-zinc oxide 20.6 % topical ointment (Calmoseptine) 1 applic topical BID #0 grams 12/20/23 metoclopramide HCl 10 mg tablet (Reglan) 10 mg PO Q6H nausea and vomiting #20 tabs 12/20/23 metronidazole 500 mg tablet 500 mg PO TID #20 tabs 12/20/23 nitroglycerin 0.4 mg sublingual tablet 0.4 mg sublingual Q5M PRN Cardiac/Chest Pain #0 tabs 12/20/23 nystatin 100,000 unit/mL oral suspension 500,000 unit (5 mL) PO 4X/DAY 10 days #200 mL 12/20/23 polyethylene glycol 3350 17 gram/dose oral powder 17 g PO DAILY #119 grams 12/20/23 potassium, sodium phosphates 280 mg-160 mg-250 mg oral powder packet 1 packet PO BID #0 ea 12/20/23 tramadol 50 mg tablet 50 mg PO Q6H PRN PRN Pain Score 1-5 2 days #4 tabs 12/20/23 Physical Exam Narrative GENERAL: cooperative HEENT: Neck in c-collar, with excoriations under the chin EYES; Anicteric, Normal Conjunctiva NECK; supple, normal thyroid, RESPIRATORY: Diminished to auscultation CARDIOVASCULAR: Regular S1 S2, GI: soft, normoactive bowel sounds, : No Renal angle tenderness; EXTREMITIES: No edema, no clubbing, MUSCULOSKELETAL: no muscle wasting NEURO: Awake; no lateralizing signs. SKIN: No Rash PSYCH; Flat affect Weight / BMI Weight Weight: 81.5 kg Body Mass Index (BMI) 25.7 ABG / Lab / Microbiology Data 12/19/23 08:42 12/19/23 08:42 Laboratory: Laboratory Results - last 24 hr 12/19/23 08:42: WBC 9.5, RBC 4.47 L, Hgb 14.3, Hct 42.6, MCV 95.3 H, MCH 32.0, MCHC 33.6, RDW Std Deviation 42.8, RDW Coeff of Isabel 12.4, Plt Count 212, MPV 10.4, Immature Gran % (Auto) 4.700 H, Neut % (Auto) 68.6, Lymph % (Auto) 14.7 L, Republic % (Auto) 8.8, Eos % (Auto) 2.7, Baso % (Auto) 0.5, Absolute Neuts (auto) 6.5, Absolute Lymphs (auto) 1.40, Nucleated RBC % 0, Sodium 136, Potassium 3.9, Chloride 104, Carbon Dioxide 26.0, Anion Gap 6, BUN 15, Creatinine 0.60 L, Estim Creat Clear Calc 65.90, Est GFR (MDRD) Af Amer 164, Est GFR (MDRD) Non-Af 136, B UN/Creatinine Ratio 25.1 H, Glucose 111 H, Calcium 8.4 L, Phosphorus 2.1 L, Magnesium 2.1 Microbiology: Microbiology 12/15/23 04:15 Urine Catheter - Calixto Urine Culture - Final Culture exhibits no growth. 12/15/23 00:03 Blood Culture (Wb) - Left Wrist Blood Culture - Preliminary No growth in 48 hours. D/C Instructions Discharge Diet: No restrictions Call your doctor if you observe: Fever of 101 or Higher, Shortness of breath, Fainting spells and Chest pain Meaningful Use Info Meaningful Use Meaningful Use Diagnoses (Choose all that apply): None applicable Ischemic Stroke Statin Dosing Therapy Reference: STATIN DOSE THERAPY REFERENCE: * Patients > 75 years receive moderate or high dose statin therapy. * Patients 75 years or YOUNGER should receive HIGH intensity statin dose unless contraindicated. You will be required to document reason for non-treatment if statin daily dose does not meet guidelines. HIGH DOSE STATIN THERAPY DAILY Atorvastatin > than or = to 40 mg Rosuvastatin > than or = to 20 mg Amlodipine + Atorvastatin > than or = to 2.5/40 mg Ezetimibe + Simvastatin 10/80 mg Simvastatin 80mg Discharge Plan Admission Admit Date/Time: 12/15/23 02:23 Attending Provider: Quan Pereira Primary Care Provider: Rayo Lanza Consulting Providers: Arias Palafox; Eddie Alex Discharge Orders/Prescriptions Prescriptions: New nystatin 100,000 unit/mL Suspension 500,000 unit PO 4X/DAY 10 Days Qty: 200 0RF acetaminophen 500 mg Tablet 1,000 mg PO Q8 Qty: 0 0RF nitroglycerin 0.4 mg Tablet, Sublingual 0.4 mg sublingual Q5M PRN (Reason: Cardiac/Chest Pain) Qty: 0 0RF potassium, sodium phosphates 280-160-250 mg Powder In Packet 1 packet PO BID Qty: 0 0RF menthol-zinc oxide [Calmoseptine] 0.44-20.6 % Ointment 1 applic topical BID Qty: 0 0RF Protocol: *Topical Application Instructions APPLICATION INSTRUCTIONS: apply to buttocks Ensure Plus High Protein 0.08 gram-1.5 kcal/mL Liquid 120 ml PO 4X/DAY Qty: 0 0RF tramadol 50 mg Tablet 50 mg PO Q6H PRN PRN (Reason: Pain Score 1-5) 2 Days Qty: 4 0RF polyethylene glycol 3350 17 gram/dose powder 17 g PO DAILY Qty: 119 0RF metoclopramide HCl [Reglan] 10 mg tablet 10 mg PO Q6H Qty: 20 0RF metronidazole 500 mg tablet 500 mg PO TID Qty: 20 0RF Continued alendronate 70 mg tablet 70 mg PO QWEEK dexamethasone 2 mg tablet 4 mg PO TID dexamethasone 2 mg tablet 4 mg PO BID dexamethasone 2 mg tablet 2 mg PO BID dexamethasone 2 mg tablet 2 mg PO DAILY dexamethasone 1 mg tablet 0.5 mg PO DAILY oxycodone 5 mg tablet 5 mg PO Q6H PRN (Reason: pain 1-10) warfarin 4 mg tablet 4 mg PO DAILY ascorbic acid (vitamin C) 500 mg capsule 500 mg PO DAILY glucosamine sulfate [Glucosamine] 500 mg tablet 500 mg PO DAILY Rx Instructions: administer with a meal aspirin 81 mg tablet,chewable 1 tab PO DAILY calcium citrate 250 mg calcium tablet 500 mg PO BID cholecalciferol (vitamin D3) 25 mcg (1,000 unit) capsule 25 mcg PO DAILY turmeric 400 mg capsule 400 mg PO DAILY Acidophilus Capsule 10 mg PO DAILY vitamin B complex [Vitamins B Complex] Capsule 1 cap PO DAILY multivitamin [Daily Multi-Vitamin] Tablet 1 tab PO DAILY vit C-E-zinc tq-yfpa-egj-zeax 250 mg-200 unit -12.5 mg-1 mg capsule 2 cap PO BID propafenone 225 mg tablet 225 mg PO TID simvastatin 10 mg tablet 5 mg PO QHS vitamin E 100 unit capsule 201 mg PO DAILY Discontinued acetaminophen 325 mg tablet 650 mg PO Q6H saw palmetto 500 mg capsule 500 mg PO DAILY Rx Instructions: give with food (meal/snack) Referrals / Follow Up: Francisco Coles MD [Non-Staff] - 01/01/24 9:00 am (need repeat xray of your neck. Go to [facility] ground floor Radiology Department on 01/01/2024 at 0900. From there, you will go over to the [facility] [address] for your appointment with Dr. Coles's Nurse Practitioner Brenda.) Rayo Lanza DO [Primary Care Provider] - Within 2 Weeks Disposition Disposition (needs filled in before D/C Order can be placed): Long-Term Facility Charges/Coding Visit Charges Inpatient E&M: 76022 Disch Hosp >30min
[2023-12-20 08:47] VITALS: BP 112/66; PULSE 68; RESP 18; TEMP 36.6; O2SAT 94
[2023-12-20] MEDS: Polyethylene Glycol 3350 17 GM PACKET PO (08:54)
[2023-12-20] MEDS: NYSTATIN 500,000 UNIT/5 ML UDC 500000 UNIT PO (08:54)
[2023-12-20] MEDS: Senna/Docusate Sodium 1 Tablet 2 TABLET PO (08:54)
[2023-12-20] MEDS: Na Biphos/Potassium Phosphate PACKET 1 PACKET PO (08:55)
[2023-12-20] MEDS: Menthol/Lanolin/Calamine/Znox 113 GM Tube 1 APPLIC TOPICAL (08:55)
[2023-12-20] MEDS: Lactobacillis Acidophilus 1 CAP PO (08:55)
--- NOTE | 2023-12-20 09:24 | CASEMGMT ---
Social Work Per physician, pt is ready for dc to TCU today. SW updated Vonda in TCU and they are able to accept pt today. Discharge orders faxed to TCU. ELI met with pt and updated on dc. Pt agreeable and requested dgt be notified. Phone call to pt dgt Hannah and updated on dc to TCU today. Hannah agreeable. Nursing updated. Disposition: Return to TCU, skilled level of care GREGG Steel
--- NOTE | 2023-12-20 09:48 | NURSING ---
report called to Sandip and pt will be in room 20.
== END 2023-12-20 10:05 | disposition skilled nursing facility (03) | DRG 389 ==
LOC: ED 12-15 01:43 → MS3 12-15 02:51
PROVIDERS: Family Medicine; Internal Medicine Gastroenterology; Admitting Provider Internal Medicine; Emergency Provider Emergency Medicine; Visit Provider Internal Medicine
PROC: 0DJD8ZZ Inspection of Lower Intestinal Tract, Via Natural or Artificial Opening Endoscopic (ICD-10-PCS; CPT 45378; principal; 2023-12-15 15:25)
DX: K56.41 Fecal impaction (principal); Q43.8 Other specified congenital malformations of intestine; T83.511A Infection and inflammatory reaction due to indwelling urethral catheter, initial encounter; N30.00 Acute cystitis without hematuria; E83.39 Other disorders of phosphorus metabolism; I48.0 Paroxysmal atrial fibrillation; E86.0 Dehydration; E03.9 Hypothyroidism, unspecified; K59.81 Ogilvie syndrome; I25.10 Atherosclerotic heart disease of native coronary artery without angina pectoris; E78.5 Hyperlipidemia, unspecified; W17.89XD Other fall from one level to another, subsequent encounter; B96.89 Other specified bacterial agents as the cause of diseases classified elsewhere; S12.100D Unspecified displaced fracture of second cervical vertebra, subsequent encounter for fracture with routine healing; S22.20XD Unspecified fracture of sternum, subsequent encounter for fracture with routine healing; R33.8 Other retention of urine; R13.10 Dysphagia, unspecified; M81.0 Age-related osteoporosis without current pathological fracture; Z66 Do not resuscitate; Z79.82 Long term (current) use of aspirin; Z79.01 Long term (current) use of anticoagulants; Z79.899 Other long term (current) drug therapy; Z90.49 Acquired absence of other specified parts of digestive tract; N40.1 Benign prostatic hyperplasia with lower urinary tract symptoms
CPT/HCPCS: 36415; 74018; 74177; 80048; 80076; 83605; 83690; 83735; 84100; 84443; 85025; 85610; 87040; 87086; 93005; 94668; 97110; 97162; 97166; 97530; 97535; 97802; 99283; J7030; J7040; Q9967; A4216; J2405

== ENCOUNTER 2023-12-20 10:29 | Inpatient (IN) | payer MEDICARE, SELFPAY ==
[2023-12-20 10:37] VITALS: BP 107/72; PULSE 77; RESP 14; TEMP 36.3; O2SAT 92
[2023-12-20 10:43] VITALS: BMI 25.5
[2023-12-20 13:19] VITALS: BP 118/68; PULSE 66; O2SAT 93
[2023-12-20] MEDS: metroNIDAZOLE 500 MG Tablet PO ×2 (13:23→20:50)
[2023-12-20] MEDS: Propafenone 150 MG Tablet 225 MG PO ×2 (13:23→20:51)
[2023-12-20] MEDS: Ensure Plus High Protein 120 ML LIQUID PO ×2 (13:23→18:03)
[2023-12-20] MEDS: Acetaminophen 500 MG Tablet 1000 MG PO ×2 (13:24→20:51)
[2023-12-20] MEDS: Nystatin 500,000 UNIT/5 ML PO.SYRINGE (WCH) 500000 UNIT PO (13:30)
--- NOTE | 2023-12-20 13:30 | NURSING ---
Woodwind Reeds Cutter Note; Activity Asset: Yordan Gomes is independent in his choice of daily activities with reminders. He has returned to TCU for continued therapy. He will watch tv, read and have family visits. Eliseo welcomes visits from the lokie driver as well. Staff will take him a radio due to his neck brace it is a bit harder for him to use his smartphone for [place]. Staff will remind him of weekly activities and respect his right to say no.
--- NOTE | 2023-12-20 14:07 | NURSING ---
Summer Counselor Note; Took resident a radio and he refused stating he did not want extra noise in his room if he did not need it. Family was in room and stated it was fine he really only uses his phone music for night time back ground noise. Family asked if staff could help him at night put his Maple on if he calls for help.
--- NOTE | 2023-12-20 16:08 | CHAPLAIN ---
Type of Pastoral Visit ___ Initial Visit _x__ Follow-up Visit ___ On-call Visit ___ General Patient Visit ___ Spiritual Assessment ___ Family Conference ___ Bereavement ___ Rapid Response ___ Code Blue ___ Other (describe below) Pastoral Care Referral From _x__ Patient _x__ Family ___ Nurse ___ Physician ___ Flagsetter ___ Architecture Drafter ___ Other (describe below) Sacrament/Intervention _x__ Active listening ___ Anointing ___ Buddhist ___ Bereavement ___ Communion _x__ Belen exploration ___ _x__ Life review _x__ Prayer ___ Reconciliation ___ Sacrament of Sick _x__ Supportive presence ___ Wedding ___ Other (describe below) Pastoral Comments this was a follow up visit as requested by the patient and family members; pt had been seen earlier in [facility]; pt is resting and states that he is more comfortable now after having been moved to this unit and having sat up in the chair for a time; pt is welcoming and eager to talk about his life; pt gives long review of his life and ends with the story of his 's and then two brothers in the last year; pt admits how hard that has been for him; pt has family support and is connected to a samaritan that also gives good support; pt expresses appreciation for taking time to sit with him and hear his story; pt welcomes prayer and speaks of the nurses who have encouraged him and prayed for him too; pt would welcome future visits if possible
[2023-12-20] MEDS: Metoclopramide 10 MG Tablet PO ×2 (16:15→20:51)
[2023-12-20] MEDS: Multivitamin (Healthy Eyes) Capsule 1 CAP PO (16:16)
[2023-12-20] MEDS: Calcium Carbonate 500 MG Tablet PO (16:16)
[2023-12-20] MEDS: NYSTATIN 500,000 UNIT/5 ML UDC 500000 UNIT PO ×2 (16:20→20:50)
[2023-12-20] MEDS: traMADol 50 MG Tablet PO ×2 (16:27→22:45)
--- NOTE | 2023-12-20 17:57 | NURSING ---
As per pharmacy, updated Dr. Ceballos Coumadin and Flagyl interact may need to monitor INR. New order entered by Dr. Ceballos daily INR checks. Updated Dr. Ceballos fine crackles noted to posterior lung bases. New order for chest xray entered by Dr. Ceballos.
--- NOTE | 2023-12-20 18:35 | RAD_ITS ---
INDICATION: Bibasilar crackles. EXAMINATION/TECHNIQUE: X-RAY - XR Chest 2 Views COMPARISON: December 14, 2023. FINDINGS: LINES/DEVICES: None. LUNGS: No consolidation, edema or effusion. Mild subsegmental atelectasis in left lower lung. No pneumothorax. MEDIASTINUM AND CARDIOVASCULAR STRUCTURES: Cardiac silhouette not enlarged. Aortic atherosclerosis. BONES AND SOFT TISSUES: Unremarkable. RAD/Chest PA and Lateral IMPRESSION: Mild left basilar atelectasis. No radiographic evidence of acute cardiopulmonary disease. Electronically Signed: Allan Apodaca MD at 22:56 EDT ,
--- NOTE | 2023-12-20 19:15 | HP.PCM_ITS ---
HPI - General General Date of Admission: 12/20/23 Date of Service: 12/20/23 Chief Complaint: Here for rehabilitation. HPI Narrative 12/15/2023 Katharine MENDIETA, is a 88 Male who presents to [facility] ED, TCU resident c2 fracture, abdominal pain. Abdominal pain, abdominal distention, vomiting. Constipation, failing multiple enemas. Urinalysis c/w UTI. CT abdomen/pelvis showed large bowel gas distention, large amount of stool in rectum. Rocephin IV for UTI. 12/15/2023 Admit [facility]. Golytely for constipation, Normal Saline IV fluids for dehydration. Rocephin, Flagyl for colitis. Rocephin for UTI, urine culture pending. PT/OT. 12/15/2023 GI recommended rectal tube, NG tube. Golytely intolerable. Hold coumadin, hold oral medications. 12/15/2023 Dr. Arthur colonoscopy showed stool in entire colon. 12/16/2023 Doing well, abdominal pain, distention improved with rectal tube. Elevated WBC improving, on chronic dexamethasone. Urine culture pending. 12/17/2023 Doing well. Miralax for constipation. Urine culture growing > 100,000 gram negative misty, continue Rocephin iv. Hold alendronate. 12/18/2023 Flagyl for colitis. Urine culture growing Citrabacter, on Rocephin iv. 12/19/2023 C collar changed for C2 fracture. Imaging showed persistent colonic ileus but improved. Low phosphorous corrected. Rectal tube in place. 12/20/2023 Admit to TCU with debility, here for rehabilitation, strengthening, prior to discharge home alone. [facility] Medical History Urinary retention Hypothyroidism Osteoporosis Hyperlipidemia Coronary artery disease Atrial fibrillation Mitral regurgitation Right arm weakness Sternal fracture Odontoid fracture Closed C2 fracture Fall Debility Home Medications ?Medication ?Instructions ?Recorded ?Last Taken ?Type Lactobacillus acidophilus 10 mg PO DAILY supplement 12/12/23 Unknown History (Acidophilus capsule) alendronate 70 mg tablet 70 mg PO QWEEK bone health 12/12/23 Unknown History ascorbic acid (vitamin C) 500 mg 500 mg PO DAILY supplement 12/12/23 Unknown History capsule aspirin 81 mg chewable tablet 1 tab PO DAILY heart health 12/12/23 Unknown History calcium citrate 500 mg PO BID supplement 12/12/23 Unknown History cholecalciferol (vitamin D3) 25 25 mcg PO DAILY supplement 12/12/23 Unknown History mcg (1,000 unit) capsule dexamethasone 1 mg tablet 0.5 mg PO DAILY inflammation 12/12/23 Unknown History dexamethasone 2 mg tablet 2 mg PO BID inflammation 12/12/23 Unknown History dexamethasone 2 mg tablet 2 mg PO DAILY inflammation 12/12/23 Unknown History dexamethasone 2 mg tablet 4 mg PO BID inflamation 12/12/23 Unknown History dexamethasone 2 mg tablet 4 mg PO TID inflamation 12/12/23 Unknown History glucosamine sulfate 500 mg tablet 500 mg PO DAILY supplement 12/12/23 Unknown History (Glucosamine) multivitamin (Daily Multi-Vitamin 1 tab PO DAILY supplement 12/12/23 Unknown History tablet) oxycodone 5 mg tablet 5 mg PO Q6H PRN pain 1-10 12/12/23 Unknown History propafenone 225 mg tablet 225 mg PO TID AFIB 12/12/23 Unknown History simvastatin 10 mg tablet 5 mg PO QHS cholesterol 12/12/23 Unknown History turmeric 400 mg capsule 400 mg PO DAILY supplement 12/12/23 Unknown History vit C 250 mg-vit E 200 unit-zinc 2 cap PO BID supplement 12/12/23 Unknown History ox 12.5 qs-kgoxbn-nllgqi-zeax capsule vitamin B complex (Vitamins B 1 cap PO DAILY supplement 12/12/23 Unknown History Complex capsule) vitamin E 100 unit capsule 201 mg PO DAILY supplement 12/12/23 Unknown History warfarin 4 mg tablet 4 mg PO DAILY AFIB 12/12/23 Unknown History acetaminophen 500 mg tablet 1,000 mg (2 x 500 mg) PO Q8 pain 12/20/23 Unknown Rx #0 tabs food supplemt, lactose-reduced 120 ml PO 4X/DAY supplement #0 mL 12/20/23 Unknown Rx 0.08 gram-1.5 kcal/mL oral liquid (Ensure Plus High Protein) menthol 0.44 %-zinc oxide 20.6 % 1 applic topical BID skin 12/20/23 Unknown Rx topical ointment (Calmoseptine) protectant #0 grams metoclopramide HCl 10 mg tablet 10 mg PO Q6H nausea and vomiting 12/20/23 Unknown Rx (Reglan) #20 tabs metronidazole 500 mg tablet 500 mg PO TID infection #20 tabs 12/20/23 Unknown Rx nitroglycerin 0.4 mg sublingual 0.4 mg sublingual Q5M PRN 12/20/23 Unknown Rx tablet Cardiac/Chest Pain #0 tabs nystatin 100,000 unit/mL oral 500,000 unit (5 mL) PO 4X/DAY 12/20/23 Unknown Rx suspension thrush 10 days #200 mL polyethylene glycol 3350 17 17 g PO DAILY bowels #119 grams 12/20/23 Unknown Rx gram/dose oral powder potassium, sodium phosphates 280 1 packet PO BID supplement #0 ea 12/20/23 Unknown Rx mg-160 mg-250 mg oral powder packet tramadol 50 mg tablet 50 mg PO Q6H PRN PRN Pain Score 12/20/23 Unknown Rx 1-5 2 days #4 tabs Allergy/AdvReac Type Severity Reaction Status Date / Time Penicillins Allergy Mild Rash Verified 12/15/23 03:27 Family History Sister Cancer Brother CAD (coronary artery disease) Brother CAD (coronary artery disease) Brother Diabetes Brother CAD (coronary artery disease) Surgical History History of coronary angioplasty History of vasectomy History of cataract surgery History of resection of large bowel Social History household members: none Smoking Status: Never smoker alcohol intake: never substance use type: does not use ROS Constitutional Constitutional: Denies chills, fever(s) or weight gain ENT HEENT: Denies headache(s), nasal congestion or nasal discharge Cardiovascular Cardiovascular: Denies chest pain or palpitations Respiratory/Chest Respiratory/Chest: Denies cough, excessive phlegm production or shortness of breath with exertion Gastrointestinal Gastrointestinal: Denies abdominal pain, nausea or vomiting Genitourinary Genitourinary: Denies dysuria Musculoskeletal Musculoskeletal: Denies joint pain or joint swelling Integumentary Integumentary: Denies rash or wounds Neurologic Neurologic: Denies focal weakness, numbness or tingling Psychiatric Psychiatric: Denies anxiety, auditory hallucinations, depression, homicidal ideation or suicidal ideation Vital Signs Vital Signs Vital Signs: 12/20/23 10:37 12/20/23 11:24 12/20/23 13:19 Temperature 97.3 F L Temperature Source Temporal Pulse Rate 77 66 Pulse Rhythm Irregular Pulse Strength Normal (2+) Respiratory Rate 14 Respiratory Effort Normal Non-Labored Respiratory Depth Normal Respiratory Pattern Normal Blood Pressure 107/72 118/68 Blood Pressure Mean 83 84 Blood Pressure Source Monitor Monitor Blood Pressure Position Semi-Fowlers Sitting Blood Pressure Location Left Arm Left Arm Pulse Ox 92 93 Oxygen Delivery Method Room Air Room Air Room Air Weight Weight: 80.881 kg Body Mass Index (BMI) 25.5 Physical Exam Const alert General Appearance: cooperative HEENT normocephalic HEENT Narrative: C collar in place. Eyes PERRL and EOMs intact bilaterally Neck supple, no JVD and no carotid bruits Resp normal respiratory effort, normal air movement and clear to auscultation bilaterally Cardio regular rate and regular rhythm GI normal to inspection, nondistended, normoactive bowel sounds, non-tender and non-distended Extremity normal capillary refill General Extremity: Negative for edema Skin no rashes or lesions noted General Skin Exam: no breakdown Psych affect normal Appearance: appropriate Assessment & Plan Assessment/Plan (1) Debility: (2) Ileus: (3) Fecal impaction in rectum: (4) Colitis: (5) Urinary tract infection: (6) C2 cervical fracture: (7) Odontoid fracture: (8) Sternal fracture: (9) Urinary retention: (10) Osteoporosis: (11) Hyperlipidemia: (12) Atrial fibrillation: (13) Macular degeneration: (14) BPH (benign prostatic hyperplasia): PLAN: Plan 88 year old male with below past medical history hospitalized for ileus 2/2 fecal impaction of colon, complicated by colitis, urinary tract infection, admitted to TCU with debility, here for rehabilitation, strengthening, prior to discharge home alone. * Debility - PT/OT. * Dysphagia - ST. * Pain - Tylenol 1000mg q8, Tramadol 50mg q6 prn pain (1-5), Oxycodone 5mg q4 prn pain (6-10). * Bowel - Miralax 17gm daily, senna/colace 2 tablets twice daily. * Adult immunization - Administer pneumonia vaccine, covid vaccine, flu vaccine as appropriate. * DVT prophylaxis - on Warfarin. * C2 fracture - C collar. * Osteoporosis - Alendronate 70mg qweek. * Hyperlipidemia - Atorvastatin 5mg qhs. * Calcium deficiency - TUMS 500mg bidcm. * Vitamin D deficiency - D3 25mcg daily. * Nutrition - Ensure Plus 120mL 4x/day. * GI prophylaxis - Lactobacillus 1 capsule daily. * Skin irritation - Calmoseptine topical bid. * Ileus - Reglan 10mg qachs thru 12/28/2023. * Colitis - Flagyl 500mg tid thru 12/26/2023. * Macular degeneration - Healthy Eyes 1 capsule bidcm. * Hypophosphatemia - K-Phos 1 packet bid. * Coronary artery disease - Rhythmol 225mg tid, Warfarin 4mg daily, NTG 0.4mg sl q5m prn. * Thrush - Nystatin 500,000 4x/day x 10 days. * Atrial fibrillation - Rhythmol 225mg tid, warfarin 4mg daily, monitor inr.
[2023-12-20] MEDS: oxyCODONE 5 MG Tablet PO (20:49)
[2023-12-20] MEDS: Na Biphos/Potassium Phosphate PACKET 1 PACKET PO (20:50)
[2023-12-20] MEDS: Atorvastatin Calcium 10 MG Tablet 5 MG PO (20:50)
[2023-12-20] MEDS: Senna/Docusate Sodium 1 Tablet 2 TABLET PO (20:53)
[2023-12-20] MEDS: 0.9% Saline Lock 10 ML Syringe IV (20:54)
[2023-12-20] MEDS: Menthol/Lanolin/Calamine/Znox 113 GM Tube 1 APPLIC TOPICAL (21:10)
[2023-12-21 06:01] LABS: International Normalized Ratio 1.5; Prothrombin Time (Protime)PT. 18.3 SECONDS (11.7-14.9)
[2023-12-21 06:25] VITALS: PULSE 72; O2SAT 92
[2023-12-21] MEDS: metroNIDAZOLE 500 MG Tablet PO ×3 (06:26→21:31)
[2023-12-21] MEDS: NYSTATIN 500,000 UNIT/5 ML UDC 500000 UNIT PO ×4 (06:26→21:32)
[2023-12-21] MEDS: Propafenone 150 MG Tablet 225 MG PO ×3 (06:26→21:36)
[2023-12-21] MEDS: Acetaminophen 500 MG Tablet 1000 MG PO ×3 (06:26→21:36)
[2023-12-21] MEDS: Ensure Plus High Protein 120 ML LIQUID PO ×4 (06:26→21:24)
[2023-12-21] MEDS: Metoclopramide 10 MG Tablet PO ×4 (06:27→21:34)
[2023-12-21 08:00] VITALS: BP 105/68; PULSE 75; RESP 20; TEMP 36.2; O2SAT 98
[2023-12-21] MEDS: Na Biphos/Potassium Phosphate PACKET 1 PACKET PO ×2 (09:27→21:32)
[2023-12-21] MEDS: Calcium Carbonate 500 MG Tablet PO ×2 (09:27→16:40)
[2023-12-21] MEDS: Polyethylene Glycol 3350 17 GM PACKET PO (09:27)
[2023-12-21] MEDS: Multivitamin (Healthy Eyes) Capsule 1 CAP PO ×2 (09:27→16:39)
[2023-12-21] MEDS: Lactobacillis Acidophilus 1 CAP PO (09:27)
[2023-12-21] MEDS: Senna/Docusate Sodium 1 Tablet 2 TABLET PO ×2 (09:28→21:36)
[2023-12-21] MEDS: Cholecalciferol (VIT D3) 25 MCG TABLET (1,000 UNITS) PO (09:28)
[2023-12-21] MEDS: Tuberculin,Purif.prot.deriv. 50 TU/ML Vial 0.1 ML ID (11:02)
[2023-12-21] MEDS: Menthol/Lanolin/Calamine/Znox 113 GM Tube 1 APPLIC TOPICAL ×2 (11:08→21:30)
--- NOTE | 2023-12-21 11:52 | CASEMGMT ---
Social Work SW met with patient d/t readmission. Pt remembers this worker. SW reeducated to [facility] insurance coverage with [employer]D 12/24. SW inquired about how pt was feeling, discussed goals of care, pain level, and wishes for treatment/future. Pt stated his feeling better overall and given recent events. Pt is motivated to getting better and has initial goals of being able to use his hands to feed himself again. Pt reports pain is better controlled and constipation is resolved. Pt is future oriented and looking forward to recovery. Pt agreed to notify this worker if he changes his mind and wants to forego treatment. SW shut off lights and ensured his comfort for him to take a nap after his therapy session and getting medicated. Pt appreciative for this worker. SW will continue to follow. VINI Sher
--- NOTE | 2023-12-21 12:40 | SP.FEES_ITS ---
FEES Patient Information Date of Evaluation: 12/21/23 Time of Evaluation: 10:00 Diagnosis: oropharyngeal dysphagia (R13.12) Staff Providing this Care/Treatment:: Lorin Chavez/Roman Higuera Direct Billable Minutes: 135 History: Past Medical History:: This patient is an 88 year old male with a past medical history significant for hypothyroidism, osteoporosis, hyperlipidemia, CAD, a-fib and mitral regurgitation, who was hospitalized for a C2 fracture, odontoid fracture and sternal fracture, treated non-surgically with a [place] J Collar, complicated by right upper extremity weakness and urinary retention, requiring a ghosh. Pt was admitted to TCU on 12/12/23 with debility, here for rehabilitation/strengthening prior to discharge home alone. ST was consulted d/t hx of dysphagia. Pt. participated in BSE on 12/13/23. INTERNAL MEDICINE VETERINARY TECHNICIAN recommended FEES to objectively assess swallow function although was not able to be completed d/t an unexpected d/c to ED w/ acute care admission for management of nausea and constipation. Patient was re-admitted to TCU on 12/20/23 w/ orders for FEES completion 12/21/23. Subjective: Subjective:: Verbal consent obtained from the patient for participation in FEES assessment. The patient was pleasant and cooperative, although this study was somewhat limited d/t discomfort w/ scope placement, requiring encouragement for continued participation. Current Diet: Drinks/Liquids:: Thin Foods:: Minced & Moist Medication Administration:: orally (w/ water) Supervision: 1:1 Distant Supervision Respiratory Status Observation:: Oxygenating on room air. Chest x-ray 12/20/23: Mild left basilar atelectasis. No radiographic evidence of acute cardiopulmonary disease. Dentition/Oral Hygiene: Observations:: Edentulous Vocal Quality: Observations:: WNL Cognition: Observations:: WNL Position During FEES: Position During FEES:: Upright Location: In Chair Fiberoptic Endoscope: Size: 3.4 mm Nare Used:: Left Comments: Scope was passed 2x, initially via R nare (removed per patient request d/t discomfort), secondarily via L nare Anatomical Findings: Anatomical Findings:: The mucosal surfaces of the nasopharynx, velum and oropharyngeal structures (tongue base, posterior pharyngeal wall, epiglottis, ventricular folds, arytenoids) were diffusely covered w/ whitish patchy plaques consistent w/ thrush, for which the patient is currently being treated. Thin whitish secretions were noted lining vallecula. Adduction of the arytenoids and true vocal folds appeared complete and symmetrical. Little to no pharyngeal contraction noted w/ pitch glides. Penetration-Aspiration Scale Penetration-Aspiration Scale Thin Liquids by Single Cup Food/Drink Provided:: Thin water w/ green food coloring via cup sip Swallow Onset Location:: Vallecula PAS Score: PAS Score *1 Visual Analysis of Swallowing Efficiency and Safety (VASES) after the swallow: Oropharynx (vallecula <5%) and Hypopharynx (pyriforms <5%) Thin Liquids by Single Straw Food/Drink Provided:: Thin water w/ green food coloring via straw sip Swallow Onset Location:: Vallecula PAS Score: PAS Score *1 Visual Analysis of Swallowing Efficiency and Safety (VASES) after the swallow: Hypopharynx Minced & Moist Textures Food/Drink Provided:: Diced pears, minced w/ green food coloring via teaspoon Swallow Onset Location:: Vallecula PAS Score: PAS Score *1 Visual Analysis of Swallowing Efficiency and Safety (VASES) after the swallow: Hypopharynx (pyriforms 10%) Diagnosis/Impressions Diagnosis: mild oropharyngeal dysphagia Swallowing Impairment: Decreased Pharyngeal Contraction Recommendations Diet: Minced and Moist Textures and Thin Liquids Medication Administration:: Whole with liquids Compensatory Strategies: Small Bites (chew thoroughly), Small Sips, Multiple Swallows (double swallow as needed to the oral and pharyngeal residue), Alternate bites/solids and sips/liquids, Sitting upright and Remain sitting upright for 30 minutes after PO intake Supervision: 1:1 Distant Supervision Recommend Repeat Instrumental Swallow Assessment: TBD (May benefit from MBSS for further diagnostic assessment) Need for Skilled Speech Therapy Services: Yes Education Completed: 1. Described result of evaluation. Frequency Frequency: 3x /Week (3-5x/week) Duration: 2-4 Weeks
--- NOTE | 2023-12-21 14:51 | PCM.PN.DRR ---
Documented by User: Paco Diamond 12/21/23 15:37 TCU RX Drug Regimen Review Subjective/Objective Subjective/Objective: Subjective: TCU admission note. 88 year old male with below past medical history hospitalized for ileus 2/2 fecal impaction of colon, complicated by colitis, urinary tract infection, admitted to TCU with debility, here for rehabilitation, strengthening, prior to discharge home alone. Objective: Allergies Penicillins Allergy (Mild, Verified 12/15/23 03:27) Rash Current Medications Generic Name Dose Route Start Last Admin Trade Name Freq PRN Reason Stop Dose Admin Acetaminophen 1,000 mg 12/20/23 14:00 12/21/23 13:25 Acetaminophen 500 Mg Tablet PO 1,000 mg Q8 SYDNI Administration Alendronate Sodium 70 mg 12/24/23 07:00 Alendronate Sodium 70 Mg Tablet PO Perez@0700 SYDNI Atorvastatin Calcium 5 mg 12/20/23 22:00 12/20/23 20:50 Atorvastatin Calcium 10 Mg Tablet PO 5 mg QHS SYDNI Administration Calamine/Phenol 1 applic 12/20/23 22:00 12/21/23 11:08 Menthol/Lanolin/Calamine/Znox 113 Gm Tube TOPICAL 1 applic BID SYDNI Administration Protocol Calcium Carbonate 500 mg 12/20/23 17:00 12/21/23 09:27 Calcium Carbonate 500 Mg Tablet PO 500 mg BIDCM SYDNI Administration Cholecalciferol 25 mcg 12/21/23 10:00 12/21/23 09:28 Cholecalciferol (Vit D3) 25 Mcg Tablet (1,000 Units) PO 25 mcg DAILY SYDNI Administration Metoclopramide HCl 10 mg 12/20/23 16:00 12/21/23 11:02 Metoclopramide 10 Mg Tablet PO 12/25/23 11:01 10 mg ACHS SYDNI Administration Metronidazole 500 mg 12/20/23 14:00 12/21/23 13:24 Metronidazole 500 Mg Tablet PO 12/26/23 22:01 500 mg TID SYDNI Administration Multivitamins/Minerals 1 cap 12/20/23 17:00 12/21/23 09:27 Multivitamin (Healthy Eyes) Capsule PO 1 cap BIDCM SYDNI Administration Nitroglycerin 0.4 mg 12/20/23 11:30 Nitroglycerin (Inpatient Use) 0.4 Mg Tab.Subl SL Q5M PRN CARDIAC/CHEST PAIN Nutritional Formula (Lactose Free) 120 ml 12/20/23 12:00 12/21/23 13:23 Ensure Plus High Protein 120 Ml Liquid PO 120 ml 4X/DAY SYDNI Administration Nystatin 500,000 unit 12/20/23 17:00 12/21/23 13:23 Nystatin 500,000 Unit/5 Ml Udc PO 12/30/23 17:01 500,000 unit 4X/DAY SYDNI Administration Oxycodone HCl 5 mg 12/20/23 19:28 12/20/23 20:49 Oxycodone 5 Mg Tablet PO 5 mg Q4H PRN PRN Administration Pain Score 6-10 or Pre PT/OT Polyethylene Glycol 17 gm 12/21/23 10:00 12/21/23 09:27 Polyethylene Glycol 3350 17 Gm Packet PO 17 gm DAILY SYDNI Administration Potassium Phos/Sodium Phos 1 packet 12/20/23 22:00 12/21/23 09:27 Na Biphos/Potassium Phosphate Packet PO 1 packet BID SYDNI Administration Propafenone HCl 225 mg 12/20/23 14:00 12/21/23 13:24 Propafenone 150 Mg Tablet PO 225 mg TID SYDNI Administration Senna/Docusate Sodium 2 tablet 12/20/23 22:00 12/21/23 09:28 Senna/Docusate Sodium 1 Tablet PO 2 tablet BID SYDNI Administration Sodium Chloride 10 - 40 ml 12/20/23 10:43 12/20/23 20:54 0.9% Saline Lock 10 Ml Syringe IV 10 ml UD PRN Administration SALINE FLUSH Tramadol HCl 50 mg 12/20/23 19:28 12/20/23 22:45 Tramadol 50 Mg Tablet PO 50 mg Q6H PRN PRN Administration Pain Score 1-5 or Pre PT/OT Warfarin Sodium 4 mg 12/20/23 17:00 12/20/23 18:03 Warfarin 4 Mg Tablet PO 4 mg DAILY@1700 SYDNI Administration Problem List BPH (benign prostatic hyperplasia) (Acute) Macular degeneration (Acute) C2 cervical fracture (Acute) Urinary tract infection (Acute) Colitis (Acute) Fecal impaction in rectum (Acute) Ileus (Acute) Urinary retention (Acute) Osteoporosis (Acute) Hyperlipidemia (Acute) Atrial fibrillation (Acute) Sternal fracture (Acute) Odontoid fracture (Acute) Debility (Acute) Vital Signs Temp Pulse Resp BP Pulse Ox O2 Del Method 97.2 F L 75 20 H 105/68 98 Room Air 12/21/23 08:00 12/21/23 08:00 12/21/23 08:00 12/21/23 08:00 12/21/23 08:00 12/21/23 08:00 Oxygen Delivery Method Room Air Weight: 80.881 kg Body Mass Index (BMI) 25.5 Assessment/Plan: 1. Pain: acetaminophen 1000 mg PO Q8H, tramadol 50 mg PO Q6H PRN pain (1-5), oxycodone 5 mg PO Q4H PRN pain (6-10). The patient has required one dose of tramadol and one dose of oxycodone so far this admission. Please continue to monitor pain levels, PRN medication usage, LFTs (AST/ALT = 35/89 U/L on 12/15/23), for constipation, renal function (serum creatinine = 0.60 mg/dL with creatinine clearance ~ 66 mL/min on 12/19/23), for seizures, for syncope/ataxia/falls, respiratory depression, and dizziness/drowsiness. 2. Bowel: polyethylene glycol 17 grams PO daily, senna/docusate 2 tablets PO BID. The patient's last documented bowel movement was 12/21/23. Please continue to monitor for bowel movements, constipation and diarrhea. 3. Colitis: metronidazole 500 mg PO TID through 12/26/23. Please continue to monitor for abdominal pain, nausea/vomiting, white blood cell counts (WBC = 9.5 K/mm3 on 12/19/23), and headache. 4. CAD/atrial fibrillation/hyperlipidemia: propafenone 225 mg PO TID, nitroglycerin 0.4 mg PO Q5M PRN chest pain, atorvastatin 5 mg PO QHS, warfarin 4 mg PO daily. The patient has not required any PRN nitro Please continue to monitor for chest pain, shortness of breath, nausea/vomiting, unusual taste, PRN medication usage, LFTs (AST/ALT = 35/89 U/L on 12/15/23), lipid levels (no recent lipid levels documented), myalgias, for s/s bleeding/excessive bruising, INR levels (INR = 1.5 on 12/21/23), and for s/s of stroke. Please consider giving an addition 1-3 mg of warfarin today to increase INR if clinically indicated. 5. Osteoporosis: alendronate 70 mg every week. Please continue to monitor bone health, for fractures, for jaw pain, renal function (serum creatinine = 0.60 mg/dL with creatinine clearance ~ 66 mL/min on 12/19/23), calcium levels (Ca = 8.4 mg/dL on 12/19/23), for abdominal pain, and phosphate levels (phos = 2.1 mg/dL on 12/19/23). 6. Hypophosphatemia: K-phos 1 packet PO BID. Please continue to monitor phosphorus levels (phos = 2.1 mg/dL on 12/19/23), and sodium levels (Na = 136 mmol/L on 12/19/23). 7. Thrush: nystatin 500,000 unit PO 4x/day through 12/29/25. Please continue to monitor for s/s of oral thrush and mouth pain. 8. Vitamin D/calcium deficiency: calcium carbonate 500 mg PO BID with meals, cholecalciferol 25 mcg PO daily. Please continue to monitor for s/s of vitamin D/calcium deficiency, calcium levels (Ca = 8.4 mg/dL on 12/19/23), vitamin D levels (Vitamin D = 39.3 ng/mL on 12/13/23). 9. Ileus: metoclopramide 10 mg ACHS through 12/28/23. Please continue to monitor for bowel movements, for abdominal pain, renal function (serum creatinine = 0.60 mg/dL with creatinine clearance ~ 66 mL/min on 12/19/23), and drowsiness. 10. GI prophylaxis: lactobacillus 1 capsule PO daily. Please continue to monitor GI function. 11. Macular degeneration: healthy eyes 1 capsule PO BID with meals. Please continue to monitor eye health. 12. Nutrition: ensure plus high protein 120 mL PO 4x/day. Please continue to monitor overall nutritional status. 13. Skin irritation: calmospetine 1 application topically BID. Please continue to monitor for skin irritation and skin integrity. Assessment/Plan for indications treated with psychotropic medications: NA Medical chart and medication regimen reviewed. The following medication irregularities or issues were identified: 1. CAD/atrial fibrillation/hyperlipidemia: propafenone 225 mg PO TID, nitroglycerin 0.4 mg PO Q5M PRN chest pain, atorvastatin 5 mg PO QHS, warfarin 4 mg PO daily. Please consider giving an addition 1-3 mg of warfarin today to increase INR if clinically indicated. Date Date of Note:: 12/21/23 Documented by User: Dr. Nikolai Ceballos MD 12/21/23 17:16 TCU RX Drug Regimen Review Provider Comments Provider responsibility Provider Comments to Recommendations by Pharmacy: Agree
[2023-12-21] MEDS: traMADol 50 MG Tablet PO (14:57)
[2023-12-21] MEDS: 0.9% Saline Lock 10 ML Syringe IV ×2 (15:02→21:24)
[2023-12-21 15:48] LABS: Absolute Lymphocyte Count 0.89 X10^3/uL (0.83-4.51); Absolute Neutrophil Count 6.1 X10^3/uL (2.0-7.7); Basophil# 0.03 X10^3/uL; Basophil% 0.4 % (0-1); Eosinophils% 2.5 % (0-5); Hemoglobin 14.5 g/dL (13.0-16.5); Lymphocyte # 0.89 X10^3/ul (0.83-4.51); Lymphocyte % 10.9 % (19-41); Mean Corp Hgb Conc 33.7 g/dL (32-36); Mean Corpuscular Hgb 32.3 pg (27.0-32.0); Mean Corpuscular Volume 95.8 fL (80-94); Mean Platelet Vol. 9.7 fl (6.2-12.0); Monocyte# 0.67 X10^3/uL; Monocyte% 8.2 % (0-10); NRBC Flagged by Analyzer 0 % (0-5); Neutrophil # 6.06 X10^3/uL (2.7-7.7); Neutrophil % 74.6 % (47-70); Platelet Count 160 K/mm3 (150-450); RBC Distribution Width CV 12.7 % (11.6-14.6); RBC Distribution Width SD 44.1 fl (35.1-43.9); Red Blood Count 4.49 M/mm3 (4.6-6.2); White Blood Count 8.1 K/mm3 (4.4-11.0)
[2023-12-21 16:12] LABS: Anion Gap 5 (5-15); BUN 18 mg/dL (7-18); BUN/Creat Ratio 28.1 RATIO (10-20); Calcium,Total 8.4 mg/dL (8.5-10.1); Chloride 104 mmol/L (98-107); Creatinine, Serum 0.64 mg/dL (0.70-1.30); EST Glomerular Filtration Rate 125 mL/min (>60); Est Glom Filt Rate - Afr Amer 151 mL/min (>60); Glucose 120 mg/dL (74-106); Sodium Level 134 mmol/L (136-145)
[2023-12-21] MEDS: oxyCODONE 5 MG Tablet PO ×2 (16:38→21:24)
[2023-12-21 20:00] VITALS: O2SAT 98
[2023-12-21] MEDS: Atorvastatin Calcium 10 MG Tablet 5 MG PO (21:32)
[2023-12-22] MEDS: traMADol 50 MG Tablet PO ×2 (00:21→08:23)
[2023-12-22] MEDS: oxyCODONE 5 MG Tablet PO ×2 (04:40→11:00)
[2023-12-22] MEDS: Ensure Plus High Protein 120 ML LIQUID PO ×3 (04:42→20:32)
[2023-12-22] MEDS: metroNIDAZOLE 500 MG Tablet PO ×3 (04:42→20:36)
[2023-12-22] MEDS: Acetaminophen 500 MG Tablet 1000 MG PO ×3 (04:43→20:41)
[2023-12-22] MEDS: NYSTATIN 500,000 UNIT/5 ML UDC 500000 UNIT PO ×4 (04:43→20:38)
[2023-12-22] MEDS: Metoclopramide 10 MG Tablet PO ×4 (04:44→20:38)
[2023-12-22] MEDS: Propafenone 150 MG Tablet 225 MG PO ×3 (04:44→20:39)
[2023-12-22 06:05] LABS: International Normalized Ratio 1.8
[2023-12-22] MEDS: Polyethylene Glycol 3350 17 GM PACKET PO (08:06)
[2023-12-22] MEDS: Calcium Carbonate 500 MG Tablet PO ×2 (08:06→17:49)
[2023-12-22] MEDS: Multivitamin (Healthy Eyes) Capsule 1 CAP PO ×2 (08:06→17:49)
[2023-12-22] MEDS: Na Biphos/Potassium Phosphate PACKET 1 PACKET PO ×2 (08:07→20:38)
[2023-12-22] MEDS: Senna/Docusate Sodium 1 Tablet 2 TABLET PO ×2 (08:07→20:41)
[2023-12-22] MEDS: Cholecalciferol (VIT D3) 25 MCG TABLET (1,000 UNITS) PO (08:08)
[2023-12-22] MEDS: Lactobacillis Acidophilus 1 CAP PO (08:08)
[2023-12-22] MEDS: Menthol/Lanolin/Calamine/Znox 113 GM Tube 1 APPLIC TOPICAL ×2 (08:08→20:29)
[2023-12-22 15:02] VITALS: BP 110/72; PULSE 73; RESP 19; TEMP 36; O2SAT 92
[2023-12-22] MEDS: oxyCODONE 5 MG Tablet 10 MG PO (15:36)
[2023-12-22] MEDS: Lidocaine 5% Patch 1 PATCH TOPICAL (15:37)
--- NOTE | 2023-12-22 16:41 | EX.PCM.CON.S ---
Assessment & Plan Assessment/Plan (1) Iatrogenic arteriovenous fistula: PLAN: Plan Patient has a right femoral AV fistula identified incidentally on recent CTA. Seems likely iatrogenic from his prior cardiac catheterization. He is asymptomatic in this regard. No plans for intervention at this time. Will plan for follow-up in the office as an outpatient and can discuss surgical intervention once he has recovered from his current injury. HPI Consult Data Date of Consult: 12/22/23 HPI Narrative HPI Narrative: Katharine MENDIETA, is a 88 M who is in TCU for ongoing rehab following recent admission to [facility] for C2 fracture, odontoid fracture, with spinal cord impingement, sternal fracture due to fall. Cervical fractures are being managed conservatively as he was felt to be too high risk for surgery. He has neck collar in place. During the course of his hospitalization at [facility] at one point he was found to have cold bilateral lower extremities so CTA abdomen pelvis with runoff was obtained. This revealed a right deep femoral AV fistula for which we are consulted. Patient denies any lower extremity rest pain, claudication, nonhealing wounds, swelling. He reports a history of cardiac catheterization approximately 10 years ago via right groin access. He otherwise denies any trauma or surgeries to the area. [facility] Medical History Urinary retention Hypothyroidism Osteoporosis Hyperlipidemia Coronary artery disease Atrial fibrillation Mitral regurgitation Right arm weakness Sternal fracture Odontoid fracture Closed C2 fracture Fall Debility Home Medications ?Medication ?Instructions ?Recorded ?Last Taken ?Type Lactobacillus acidophilus 10 mg PO DAILY supplement 12/12/23 Unknown History (Acidophilus capsule) alendronate 70 mg tablet 70 mg PO QWEEK bone health 12/12/23 Unknown History ascorbic acid (vitamin C) 500 mg 500 mg PO DAILY supplement 12/12/23 Unknown History capsule aspirin 81 mg chewable tablet 1 tab PO DAILY heart health 12/12/23 Unknown History calcium citrate 500 mg PO BID supplement 12/12/23 Unknown History cholecalciferol (vitamin D3) 25 25 mcg PO DAILY supplement 12/12/23 Unknown History mcg (1,000 unit) capsule dexamethasone 1 mg tablet 0.5 mg PO DAILY inflammation 12/12/23 Unknown History dexamethasone 2 mg tablet 2 mg PO BID inflammation 12/12/23 Unknown History dexamethasone 2 mg tablet 2 mg PO DAILY inflammation 12/12/23 Unknown History dexamethasone 2 mg tablet 4 mg PO BID inflamation 12/12/23 Unknown History dexamethasone 2 mg tablet 4 mg PO TID inflamation 12/12/23 Unknown History glucosamine sulfate 500 mg tablet 500 mg PO DAILY supplement 12/12/23 Unknown History (Glucosamine) multivitamin (Daily Multi-Vitamin 1 tab PO DAILY supplement 12/12/23 Unknown History tablet) oxycodone 5 mg tablet 5 mg PO Q6H PRN pain 1-10 12/12/23 Unknown History propafenone 225 mg tablet 225 mg PO TID AFIB 12/12/23 Unknown History simvastatin 10 mg tablet 5 mg PO QHS cholesterol 12/12/23 Unknown History turmeric 400 mg capsule 400 mg PO DAILY supplement 12/12/23 Unknown History vit C 250 mg-vit E 200 unit-zinc 2 cap PO BID supplement 12/12/23 Unknown History ox 12.5 db-hazied-cfpdnx-zeax capsule vitamin B complex (Vitamins B 1 cap PO DAILY supplement 12/12/23 Unknown History Complex capsule) vitamin E 100 unit capsule 201 mg PO DAILY supplement 12/12/23 Unknown History warfarin 4 mg tablet 4 mg PO DAILY AFIB 12/12/23 Unknown History acetaminophen 500 mg tablet 1,000 mg (2 x 500 mg) PO Q8 pain 12/20/23 Unknown Rx #0 tabs food supplemt, lactose-reduced 120 ml PO 4X/DAY supplement #0 mL 12/20/23 Unknown Rx 0.08 gram-1.5 kcal/mL oral liquid (Ensure Plus High Protein) menthol 0.44 %-zinc oxide 20.6 % 1 applic topical BID skin 12/20/23 Unknown Rx topical ointment (Calmoseptine) protectant #0 grams metoclopramide HCl 10 mg tablet 10 mg PO Q6H nausea and vomiting 12/20/23 Unknown Rx (Reglan) #20 tabs metronidazole 500 mg tablet 500 mg PO TID infection #20 tabs 12/20/23 Unknown Rx nitroglycerin 0.4 mg sublingual 0.4 mg sublingual Q5M PRN 12/20/23 Unknown Rx tablet Cardiac/Chest Pain #0 tabs nystatin 100,000 unit/mL oral 500,000 unit (5 mL) PO 4X/DAY 12/20/23 Unknown Rx suspension thrush 10 days #200 mL polyethylene glycol 3350 17 17 g PO DAILY bowels #119 grams 12/20/23 Unknown Rx gram/dose oral powder potassium, sodium phosphates 280 1 packet PO BID supplement #0 ea 12/20/23 Unknown Rx mg-160 mg-250 mg oral powder packet tramadol 50 mg tablet 50 mg PO Q6H PRN PRN Pain Score 12/20/23 Unknown Rx 1-5 2 days #4 tabs Allergy/AdvReac Type Severity Reaction Status Date / Time Penicillins Allergy Mild Rash Verified 12/15/23 03:27 Family History Sister Cancer Brother CAD (coronary artery disease) Brother CAD (coronary artery disease) Brother Diabetes Brother CAD (coronary artery disease) Surgical History History of coronary angioplasty History of vasectomy History of cataract surgery History of resection of large bowel Social History household members: none Smoking Status: Never smoker alcohol intake: never substance use type: does not use Physical Exam Const alert, oriented x3 and no apparent distress General Appearance: cooperative HEENT head/scalp atraumatic and external nose normal Eyes General Eye: normal appearance of both eyes Neck Neck Narrative: Neck collar in place Resp normal respiratory effort and no retractions Effort and Inspection: able to speak in complete sentences Cardio Rate: regular rate Rhythm: regular rhythm Extremity Extremity Narrative: Right PT pulse palpable, right DP pulse diminished to palpation but with triphasic Doppler signal Left DP and PT pulses palpable No significant lower extremity edema Skin no rashes or lesions noted Neuro CN's II-XII intact bilaterally Speech: speech normal Psych mental status grossly normal Appearance: grossly normal Lab / Micro Data 12/21/23 15:32 12/21/23 15:32 Labs: Laboratory Results - last 24 hr 12/22/23 05:30: PT 21.0 H, INR 1.8 Charges/Coding Visit Charges Inpatient E&M: 39246 SNF Init L1
[2023-12-22 20:00] VITALS: PULSE 74; O2SAT 93
[2023-12-22] MEDS: 0.9% Saline Lock 10 ML Syringe IV (20:00)
[2023-12-22] MEDS: Atorvastatin Calcium 10 MG Tablet 5 MG PO (20:36)
[2023-12-23] MEDS: oxyCODONE 5 MG Tablet 10 MG PO ×4 (00:08→20:00)
[2023-12-23] MEDS: Metoclopramide 10 MG Tablet PO ×4 (06:22→20:02)
[2023-12-23] MEDS: metroNIDAZOLE 500 MG Tablet PO ×3 (06:22→21:13)
[2023-12-23] MEDS: Acetaminophen 500 MG Tablet 1000 MG PO ×3 (06:22→20:03)
[2023-12-23] MEDS: Ensure Plus High Protein 120 ML LIQUID PO ×4 (06:22→20:05)
[2023-12-23] MEDS: NYSTATIN 500,000 UNIT/5 ML UDC 500000 UNIT PO ×4 (06:22→20:01)
[2023-12-23] MEDS: Propafenone 150 MG Tablet 225 MG PO ×3 (06:23→20:04)
[2023-12-23 06:57] VITALS: PULSE 84; O2SAT 92
[2023-12-23 08:03] LABS: International Normalized Ratio 2.1; Prothrombin Time (Protime)PT. 23.1 SECONDS (11.7-14.9)
[2023-12-23] MEDS: Calcium Carbonate 500 MG Tablet PO ×2 (08:45→17:26)
[2023-12-23] MEDS: Multivitamin (Healthy Eyes) Capsule 1 CAP PO ×2 (08:45→17:26)
[2023-12-23] MEDS: Lidocaine 5% Patch 1 PATCH TOPICAL (08:45)
[2023-12-23] MEDS: Polyethylene Glycol 3350 17 GM PACKET PO (08:46)
[2023-12-23] MEDS: Menthol/Lanolin/Calamine/Znox 113 GM Tube 1 APPLIC TOPICAL ×2 (08:46→20:05)
[2023-12-23] MEDS: Cholecalciferol (VIT D3) 25 MCG TABLET (1,000 UNITS) PO (08:46)
[2023-12-23] MEDS: Na Biphos/Potassium Phosphate PACKET 1 PACKET PO ×2 (08:46→20:02)
[2023-12-23] MEDS: Senna/Docusate Sodium 1 Tablet 2 TABLET PO ×2 (08:46→20:03)
[2023-12-23] MEDS: Lactobacillis Acidophilus 1 CAP PO (08:47)
[2023-12-23 13:57] VITALS: BP 90/63; PULSE 87; RESP 18; TEMP 36.3; O2SAT 92
[2023-12-23 19:59] VITALS: BP 107/68; PULSE 81
[2023-12-23] MEDS: Atorvastatin Calcium 10 MG Tablet 5 MG PO (20:03)
[2023-12-24] MEDS: Propafenone 150 MG Tablet 225 MG PO ×3 (06:06→20:34)
[2023-12-24] MEDS: Ensure Plus High Protein 120 ML LIQUID PO ×4 (06:06→20:33)
[2023-12-24] MEDS: NYSTATIN 500,000 UNIT/5 ML UDC 500000 UNIT PO ×4 (06:06→20:33)
[2023-12-24] MEDS: Acetaminophen 500 MG Tablet 1000 MG PO ×3 (06:07→20:33)
[2023-12-24] MEDS: Metoclopramide 10 MG Tablet PO ×4 (06:08→20:34)
[2023-12-24] MEDS: Alendronate Sodium 70 MG Tablet PO (06:08)
[2023-12-24] MEDS: oxyCODONE 5 MG Tablet 10 MG PO ×3 (06:10→20:32)
[2023-12-24] MEDS: metroNIDAZOLE 500 MG Tablet PO ×3 (06:18→20:34)
[2023-12-24] MEDS: Calcium Carbonate 500 MG Tablet PO ×2 (08:27→17:28)
[2023-12-24] MEDS: Lidocaine 5% Patch 1 PATCH TOPICAL (08:27)
[2023-12-24] MEDS: Lactobacillis Acidophilus 1 CAP PO (08:27)
[2023-12-24] MEDS: Multivitamin (Healthy Eyes) Capsule 1 CAP PO ×2 (08:27→16:27)
[2023-12-24] MEDS: Menthol/Lanolin/Calamine/Znox 113 GM Tube 1 APPLIC TOPICAL ×2 (08:28→20:36)
[2023-12-24] MEDS: Polyethylene Glycol 3350 17 GM PACKET PO (08:28)
[2023-12-24] MEDS: Cholecalciferol (VIT D3) 25 MCG TABLET (1,000 UNITS) PO (08:28)
[2023-12-24] MEDS: Na Biphos/Potassium Phosphate PACKET 1 PACKET PO ×2 (08:28→20:36)
[2023-12-24] MEDS: Senna/Docusate Sodium 1 Tablet 2 TABLET PO ×2 (08:28→20:35)
[2023-12-24 09:21] LABS: International Normalized Ratio 2.7; Prothrombin Time (Protime)PT. 28.2 SECONDS (11.7-14.9)
[2023-12-24 10:01] VITALS: BP 90/64; PULSE 89; RESP 16; TEMP 36.3; O2SAT 99
[2023-12-24 14:04] VITALS: BP 104/71; PULSE 83
--- NOTE | 2023-12-24 19:30 | NURSING ---
Around 1929
--- NOTE | 2023-12-24 19:30 | NURSING ---
Upon entering patient's room around 1930, this nurse observed a bloody facial tissue on the patient's bedside table. Blood was bright red and did not appear to have coffee-ground characteristics or sputum. When asked where the blood came from, patient said he felt it running down his throat and coughed it up . This nurse then elevated the patient's head as he was nearly flat in the bed, then assessed patient's nose for blood but did not observe any. Patient was asked to open his mouth and a tongue depressor was used to assess mouth and throat. There was a scant amount of blood on the patient's tongue and a very small amount of blood was noted in the back throat that appeared to be running down from his nose. Mucous membranes otherwise appeared to be intact, while bilateral nostrils were noted to be dry. Vital signs assessed and lab values reviewed as patient is on warfarin; last INR was 2.7 and vital signs were within normal limits. Lung sounds clear to auscultation with chest rising and falling symmetrically. Patient denies any acute symptoms while being assessed and displayed no symptoms of distress. Mouth and nose assessed again and noted to be free of active bleeding. Written communication left for Dr. Ceballos.
[2023-12-24 19:48] VITALS: BP 108/68; PULSE 81; RESP 18; TEMP 37.1; O2SAT 93
[2023-12-24] MEDS: Atorvastatin Calcium 10 MG Tablet 5 MG PO (20:36)
[2023-12-25 04:35] VITALS: BP 115/68; PULSE 81
[2023-12-25] MEDS: oxyCODONE 5 MG Tablet 10 MG PO ×4 (04:36→22:49)
[2023-12-25] MEDS: Acetaminophen 500 MG Tablet 1000 MG PO ×3 (04:37→22:46)
[2023-12-25] MEDS: Propafenone 150 MG Tablet 225 MG PO ×3 (04:38→22:45)
[2023-12-25] MEDS: NYSTATIN 500,000 UNIT/5 ML UDC 500000 UNIT PO ×4 (04:38→22:43)
[2023-12-25] MEDS: metroNIDAZOLE 500 MG Tablet PO ×3 (04:39→22:44)
[2023-12-25] MEDS: Ensure Plus High Protein 120 ML LIQUID PO ×4 (04:45→22:49)
[2023-12-25] MEDS: Metoclopramide 10 MG Tablet PO ×2 (05:59→10:50)
[2023-12-25 06:34] LABS: International Normalized Ratio 2.9; Prothrombin Time (Protime)PT. 30.2 SECONDS (11.7-14.9)
[2023-12-25] MEDS: Senna/Docusate Sodium 1 Tablet 2 TABLET PO ×2 (08:19→22:45)
[2023-12-25] MEDS: Multivitamin (Healthy Eyes) Capsule 1 CAP PO ×2 (08:19→16:29)
[2023-12-25] MEDS: Lactobacillis Acidophilus 1 CAP PO (08:19)
[2023-12-25] MEDS: Calcium Carbonate 500 MG Tablet PO ×2 (08:19→16:29)
[2023-12-25] MEDS: Cholecalciferol (VIT D3) 25 MCG TABLET (1,000 UNITS) PO (08:19)
[2023-12-25] MEDS: Lidocaine 5% Patch 1 PATCH TOPICAL (08:20)
[2023-12-25] MEDS: Na Biphos/Potassium Phosphate PACKET 1 PACKET PO ×2 (08:21→22:44)
[2023-12-25] MEDS: Menthol/Lanolin/Calamine/Znox 113 GM Tube 1 APPLIC TOPICAL ×2 (08:26→22:54)
--- NOTE | 2023-12-25 11:21 | CASEMGMT ---
Social Work BIMS () and PHQ-9 () completed for MDS assessment. SW explored pt's positive responses. Pt contributes overall decline in mood is d/t loss of independence, functional abilities and medical challenges. Pt does enjoy listening to Temple music on his phone, which was actively playing when this worker entered pt's room. Pt denies any other needs. Pt remains forward thinking and motivated in therapy. SW offered ongoing supportive visits as needed. Eulalia Marin MSW PLUG SAW OPERATOR
[2023-12-25 14:27] VITALS: BP 107/69; PULSE 85; RESP 16; TEMP 36.1; O2SAT 92
[2023-12-25] MEDS: Atorvastatin Calcium 10 MG Tablet 5 MG PO (22:44)
[2023-12-26] MEDS: Ensure Plus High Protein 120 ML LIQUID PO ×3 (05:28→21:39)
[2023-12-26] MEDS: metroNIDAZOLE 500 MG Tablet PO ×3 (05:29→21:42)
[2023-12-26] MEDS: Acetaminophen 500 MG Tablet 1000 MG PO ×3 (05:29→21:40)
[2023-12-26] MEDS: NYSTATIN 500,000 UNIT/5 ML UDC 500000 UNIT PO ×4 (05:29→21:39)
[2023-12-26] MEDS: Propafenone 150 MG Tablet 225 MG PO ×3 (05:30→21:43)
[2023-12-26 06:00] LABS: International Normalized Ratio 3.3; Prothrombin Time (Protime)PT. 33.5 SECONDS (11.7-14.9)
[2023-12-26] MEDS: Calcium Carbonate 500 MG Tablet PO ×2 (08:35→16:10)
[2023-12-26] MEDS: Multivitamin (Healthy Eyes) Capsule 1 CAP PO ×2 (08:35→16:10)
[2023-12-26] MEDS: Lactobacillis Acidophilus 1 CAP PO (08:35)
[2023-12-26] MEDS: Lidocaine 5% Patch 1 PATCH TOPICAL (08:36)
[2023-12-26] MEDS: Na Biphos/Potassium Phosphate PACKET 1 PACKET PO ×2 (08:36→21:42)
[2023-12-26] MEDS: Cholecalciferol (VIT D3) 25 MCG TABLET (1,000 UNITS) PO (08:36)
[2023-12-26] MEDS: Polyethylene Glycol 3350 17 GM PACKET PO (08:36)
[2023-12-26] MEDS: Menthol/Lanolin/Calamine/Znox 113 GM Tube 1 APPLIC TOPICAL ×2 (08:36→21:38)
[2023-12-26] MEDS: Senna/Docusate Sodium 1 Tablet 2 TABLET PO ×2 (08:36→21:40)
[2023-12-26 10:09] VITALS: BMI 25.3
[2023-12-26] MEDS: oxyCODONE 5 MG Tablet 10 MG PO ×3 (11:12→22:46)
[2023-12-26 13:21] VITALS: BP 98/67; PULSE 71; RESP 18; TEMP 36.3; O2SAT 94
--- NOTE | 2023-12-26 14:31 | CHAPLAIN ---
Type of Pastoral Visit ___ Initial Visit _x__ Follow-up Visit ___ On-call Visit ___ General Patient Visit ___ Spiritual Assessment ___ Family Conference ___ Bereavement ___ Rapid Response ___ Code Blue ___ Other (describe below) Pastoral Care Referral From _x__ Patient ___ Family ___ Nurse ___ Physician ___ Supplier Quality Manager ___ Yield Engineer ___ Other (describe below) Sacrament/Intervention _x__ Active listening ___ Anointing ___ Orthodox ___ Bereavement ___ Communion _x__ Belen exploration ___ _x__ Life review _x__ Prayer ___ Reconciliation ___ Sacrament of Sick _x__ Supportive presence ___ Wedding ___ Other (describe below) Pastoral Comments patient is very welcoming and talks much about his life, his home, his family, his mandaeism, how he is feeling, how he is handling his life situation; patient's sister comes into the room and she interacts with this table inspector as well as the patient; pt is spiritually minded and requests prayers for self and for sister;
[2023-12-26] MEDS: Warfarin (BKC) 3 MG Tablet PO (16:09)
[2023-12-26 20:00] VITALS: PULSE 84; O2SAT 92
[2023-12-26] MEDS: Atorvastatin Calcium 10 MG Tablet 5 MG PO (21:42)
[2023-12-27 04:30] VITALS: PULSE 76
[2023-12-27] MEDS: NYSTATIN 500,000 UNIT/5 ML UDC 500000 UNIT PO ×4 (05:21→22:48)
[2023-12-27] MEDS: Ensure Plus High Protein 120 ML LIQUID PO ×3 (05:21→22:47)
[2023-12-27] MEDS: Acetaminophen 500 MG Tablet 1000 MG PO ×3 (05:22→22:52)
[2023-12-27] MEDS: Propafenone 150 MG Tablet 225 MG PO ×3 (05:23→22:51)
[2023-12-27 06:13] LABS: International Normalized Ratio 3.5; Prothrombin Time (Protime)PT. 35.2 SECONDS (11.7-14.9)
--- NOTE | 2023-12-27 08:56 | NURSING ---
Pressure Steamer Tender Note; MDS for 12/27/2023 Complete
[2023-12-27] MEDS: Polyethylene Glycol 3350 17 GM PACKET PO (09:16)
[2023-12-27] MEDS: Lactobacillis Acidophilus 1 CAP PO (09:16)
[2023-12-27] MEDS: Lidocaine 5% Patch 1 PATCH TOPICAL (09:17)
[2023-12-27] MEDS: Na Biphos/Potassium Phosphate PACKET 1 PACKET PO ×2 (09:17→22:48)
[2023-12-27] MEDS: Multivitamin (Healthy Eyes) Capsule 1 CAP PO ×2 (09:17→16:37)
[2023-12-27] MEDS: Cholecalciferol (VIT D3) 25 MCG TABLET (1,000 UNITS) PO (09:17)
[2023-12-27] MEDS: Calcium Carbonate 500 MG Tablet PO ×2 (09:18→16:37)
[2023-12-27] MEDS: Senna/Docusate Sodium 1 Tablet 2 TABLET PO ×2 (09:18→22:52)
[2023-12-27] MEDS: Menthol/Lanolin/Calamine/Znox 113 GM Tube 1 APPLIC TOPICAL ×2 (09:18→22:46)
--- NOTE | 2023-12-27 10:03 | CASEMGMT ---
Social Work IDT met with patient, two dtrs and son for care plan meeting. Discussed patient's progress in PT/OT/ST/SN. Educated to [facility] insurance with [employer]D 12/28 and continued stay is not guaranteed with each review. Provided family with written communication on insurance process and copay coverage during stay. Family expressed concern with pt's decline in mood. SW revisited depressive symptoms; inquired if pt would be agreeable to medication to assist with mood. Family is in agreement and encouraged pt. Pt did agree. IDT is in agreement to start Remeron, to assist with mood, sleep and appetite. Pt/family appreciative. Discussed DC Planning. Recommending SNF at this time as pt needs extensive assist and total feed. Family is in agreement. SW educated to private pay cost to a SNF. Inquired if pt would qualify for Medicaid. Pt would not qualify and could pay privately. SW offered to provide list of INN providers, though only totaling 6 providers throughout [place], and [place]. Also offered full list of [place] INN providers, and SW to assist in determining if pt has any OON benefits. Educated to part B therapies and possible future coverage for skilled services again. Family accepting both lists via email. SW sent both lists to [employer], email provided, that includes quality and resource data via [employer] link. family appreciative. SW will continue to follow for DC planning and support. Eulalia Marin, VINI MORTONW
[2023-12-27] MEDS: oxyCODONE 5 MG Tablet 10 MG PO ×3 (11:06→22:56)
[2023-12-27 14:51] VITALS: BP 117/74; PULSE 74; RESP 16; TEMP 36.2; O2SAT 91
--- NOTE | 2023-12-27 15:13 | NURSING ---
Addendum entered by Melanie Contreras 12/27/23 15:58: Received fax with x-ray order for cervical spine 2 views. Contacted X-ray to have x-rays forwarded to [facility]. Original Note: Received phone call from Dr. Coles office regarding appt on 01/01/24. Per Dr. Coles okay to take x-ray here and have them sent to office and cancel the appt for 01/01/24. They will fax over orders for x-rays.
--- NOTE | 2023-12-27 16:05 | RAD_ITS ---
EXAM: XR CERVICAL SPINE, 2 OR 3 VIEWS CLINICAL INDICATION: Follow up for Odontoid Fracture -- Open mouth for Lateral view. TECHNIQUE: Frontal and lateral views of the cervical spine. COMPARISON: CTA neck 11/30/2023 FINDINGS: VERTEBRAE: Fracture deformity of the odontoid process again noted. There is approximately 10 mm of anterior displacement which appears increased when compared to the CTA study. Recommend follow-up dedicated CT of the cervical spine for further evaluation. Loss of the normal cervical lordosis which may be due to muscle spasm or head positioning. DISC SPACES: Prominent disc space narrowing noted at the C4-5, C5-6 and C6-7 levels. Multilevel facet arthropathy. SOFT TISSUES: Normal. No prevertebral soft tissue widening. LUNG APICES: Clear. RAD/Cerv Spine 2 or 3 Views IMPRESSION: Odontoid fracture with suggestion of interval increase in the anterior displacement deformity. Follow-up dedicated CT cervical spine recommended. Electronically Signed: Amilcar Theodore MD at 16:35 EDT ,
[2023-12-27] MEDS: Warfarin (BKC) 3 MG Tablet PO (16:38)
[2023-12-27] MEDS: Atorvastatin Calcium 10 MG Tablet 5 MG PO (22:47)
[2023-12-27] MEDS: Mirtazapine 15 MG Tablet 7.5 MG PO (22:49)
[2023-12-28] MEDS: Acetaminophen 500 MG Tablet 1000 MG PO ×3 (05:23→21:04)
[2023-12-28] MEDS: NYSTATIN 500,000 UNIT/5 ML UDC 500000 UNIT PO ×4 (05:23→21:02)
[2023-12-28] MEDS: Ensure Plus High Protein 120 ML LIQUID PO ×3 (05:23→17:08)
[2023-12-28] MEDS: Propafenone 150 MG Tablet 225 MG PO ×3 (05:24→21:03)
[2023-12-28 08:26] LABS: International Normalized Ratio 3.6; Prothrombin Time (Protime)PT. 35.6 SECONDS (11.7-14.9)
[2023-12-28 08:40] VITALS: BP 95/59; PULSE 66; RESP 16; TEMP 35.9; O2SAT 94
[2023-12-28] MEDS: Polyethylene Glycol 3350 17 GM PACKET PO (08:43)
[2023-12-28] MEDS: Senna/Docusate Sodium 1 Tablet 2 TABLET PO ×2 (08:44→21:04)
[2023-12-28] MEDS: Multivitamin (Healthy Eyes) Capsule 1 CAP PO ×2 (08:44→17:09)
[2023-12-28] MEDS: Na Biphos/Potassium Phosphate PACKET 1 PACKET PO ×2 (08:44→21:02)
[2023-12-28] MEDS: Calcium Carbonate 500 MG Tablet PO ×2 (08:44→17:09)
[2023-12-28] MEDS: Lidocaine 5% Patch 1 PATCH TOPICAL (08:44)
[2023-12-28] MEDS: Lactobacillis Acidophilus 1 CAP PO (08:44)
[2023-12-28] MEDS: Cholecalciferol (VIT D3) 25 MCG TABLET (1,000 UNITS) PO (08:44)
[2023-12-28] MEDS: Menthol/Lanolin/Calamine/Znox 113 GM Tube 1 APPLIC TOPICAL ×2 (08:45→21:05)
--- NOTE | 2023-12-28 09:08 | NURSING ---
Insurance approved CT scan cervial spine no contrast. Case #[id number]. Auth #[id number]. Updated resident. Order faxed to CT.
--- NOTE | 2023-12-28 13:32 | MDS.RN ---
Information for the MDS was obtained from review of the clinical record, interview of resident, staff, and direct observation of resident?s care.
[2023-12-28] MEDS: traMADol 50 MG Tablet PO (13:38)
--- NOTE | 2023-12-28 13:49 | NURSING ---
Addendum entered by Hayde Hand 12/28/23 14:37: CT report was faxed to Dr. Coles at [phone]. Images were sent to [employer]. Original Note: Updated Dr. Ceballos on CT results. He discussed updating Dr. Coles, then gave order to send resident to ER. RN called and updated dtr Hannah. Per Hannah, Dr. Coles had said resident isn't a surgical candidate and she didn't want him sent out. Let her know nurse would follow-up with Dr. Coles and let her know what he says. Paged and spoke with Dr. Coles. Reviewed CT results. Dr. Coles confirmed what dtr said, that resident is not a surgical candidate, he would just continue c collar. RN updated Hannah who wants to keep resident on TCU. Updated Dr. Ceballos, will continue c collar.
--- NOTE | 2023-12-28 15:40 | CASEMGMT ---
Addendum entered by Eulalia Marin 12/29/23 12:59: SW updated dtr via email that [facility] and [facility] can accept but are OON and pt does not have any OON benefits. [facility] not [facility] any beds. [facility] can accept and is INN. Awaiting on outcome from insurance and dtr to make decision. PASRR started in [facility]. Original Note: Social Work Dtr provided SNF choices: [facility], [facility], [facility]. Referrals made via [facility]. Eulalia Marin, VINI MORTONW
[2023-12-28] MEDS: Warfarin (BKC) 3 MG Tablet PO (17:08)
[2023-12-28] MEDS: oxyCODONE 5 MG Tablet 10 MG PO (17:08)
[2023-12-28] MEDS: Atorvastatin Calcium 10 MG Tablet 5 MG PO (21:02)
[2023-12-28] MEDS: Mirtazapine 15 MG Tablet 7.5 MG PO (21:03)
[2023-12-29] MEDS: Ensure Plus High Protein 120 ML LIQUID PO (06:14)
[2023-12-29 06:15] VITALS: BP 102/72; PULSE 80
[2023-12-29] MEDS: Acetaminophen 500 MG Tablet 1000 MG PO ×3 (06:16→20:50)
[2023-12-29] MEDS: NYSTATIN 500,000 UNIT/5 ML UDC 500000 UNIT PO ×4 (06:16→20:51)
[2023-12-29] MEDS: Propafenone 150 MG Tablet 225 MG PO ×3 (06:17→20:49)
[2023-12-29 08:49] LABS: Absolute Lymphocyte Count 1.92 X10^3/uL (0.83-4.51); Absolute Neutrophil Count 2.5 X10^3/uL (2.0-7.7); Basophil# 0.04 X10^3/uL; Basophil% 0.7 % (0-1); Eosinophil# 0.27 X10^3/uL; Eosinophils% 5.1 % (0-5); Hematocrit 42.7 % (40-54); Lymphocyte # 1.92 X10^3/ul (0.83-4.51); Mean Corp Hgb Conc 32.8 g/dL (32-36); Mean Corpuscular Hgb 31.5 pg (27.0-32.0); Mean Corpuscular Volume 96.2 fL (80-94); Monocyte# 0.51 X10^3/uL; Monocyte% 9.6 % (0-10); NRBC Flagged by Analyzer 0 % (0-5); Neutrophil # 2.52 X10^3/uL (2.7-7.7); Neutrophil % 47.1 % (47-70); Platelet Count 252 K/mm3 (150-450); RBC Distribution Width CV 12.9 % (11.6-14.6); RBC Distribution Width SD 45.5 fl (35.1-43.9); Red Blood Count 4.44 M/mm3 (4.6-6.2); White Blood Count 5.3 K/mm3 (4.4-11.0)
[2023-12-29 09:11] LABS: Anion Gap 4 (5-15); BUN 12 mg/dL (7-18); Calcium,Total 8.7 mg/dL (8.5-10.1); Chloride 104 mmol/L (98-107); Creatinine, Serum 0.63 mg/dL (0.70-1.30); EST Glomerular Filtration Rate 127 mL/min (>60); Est Glom Filt Rate - Afr Amer 154 mL/min (>60); Glucose 126 mg/dL (74-106); Potassium 4.1 mmol/L (3.5-5.1); Sodium Level 136 mmol/L (136-145)
[2023-12-29 09:15] VITALS: BP 102/63; PULSE 85; RESP 17; TEMP 36.7; O2SAT 92
[2023-12-29] MEDS: Multivitamin (Healthy Eyes) Capsule 1 CAP PO ×2 (09:18→18:22)
[2023-12-29] MEDS: Menthol/Lanolin/Calamine/Znox 113 GM Tube 1 APPLIC TOPICAL ×2 (09:19→20:52)
[2023-12-29] MEDS: Calcium Carbonate 500 MG Tablet PO (09:19)
[2023-12-29] MEDS: Lidocaine 5% Patch 1 PATCH TOPICAL (09:19)
[2023-12-29] MEDS: Polyethylene Glycol 3350 17 GM PACKET PO (09:19)
[2023-12-29] MEDS: Lactobacillis Acidophilus 1 CAP PO (09:19)
[2023-12-29] MEDS: Cholecalciferol (VIT D3) 25 MCG TABLET (1,000 UNITS) PO (09:20)
[2023-12-29] MEDS: Na Biphos/Potassium Phosphate PACKET 1 PACKET PO ×2 (09:20→20:51)
[2023-12-29] MEDS: Senna/Docusate Sodium 1 Tablet 2 TABLET PO ×2 (09:20→20:50)
[2023-12-29 10:16] LABS: International Normalized Ratio 2.9; Prothrombin Time (Protime)PT. 29.9 SECONDS (11.7-14.9)
[2023-12-29 12:58] VITALS: BP 110/73; PULSE 87
[2023-12-29 16:18] LABS: Bacteria 0 SEEN /hpf (None Seen); Mucous, Urine 0 SEEN /hpf (<or=2+); Red Blood Cells-Urine 0 SEEN /hpf (0-5); Squamous Epithelial Cells - UA 0 SEEN /hpf (0-5); White Blood Cells 0 SEEN /hpf (0-5)
[2023-12-29 16:21] LABS: Color, Urine Yellow (Yellow); Glucose, Dipstick Normal (Normal); Ketone-Dipstick Negative (Negative); Leukocyte Esterase-Dipstick Negative /ul (Negative); Nitrite-Dipstick Negative (Negative); Occult Blood-Urine Negative /ul (Negative); Protein-Dipstick 15 mg/dl (Negative); Urine Bilirubin Dipstick Negative (Negative); Urine Clarity Clear (Clear); Urine Urobilinogen Normal (Normal)
[2023-12-29] MEDS: Mirtazapine 15 MG Tablet 7.5 MG PO (20:51)
[2023-12-29] MEDS: Atorvastatin Calcium 10 MG Tablet 5 MG PO (20:52)
[2023-12-30] MEDS: Acetaminophen 500 MG Tablet 1000 MG PO ×3 (06:22→20:54)
[2023-12-30] MEDS: oxyCODONE 5 MG Tablet 10 MG PO ×3 (06:23→20:49)
[2023-12-30] MEDS: Propafenone 150 MG Tablet 225 MG PO ×3 (06:23→20:53)
[2023-12-30] MEDS: NYSTATIN 500,000 UNIT/5 ML UDC 500000 UNIT PO ×3 (06:23→18:00)
--- NOTE | 2023-12-30 06:25 | NURSING ---
Calixto removed this AM per order. Patient tolerated well. Per protocol, patient will begin voiding trials Q8H for 72H.
[2023-12-30 07:10] LABS: International Normalized Ratio 2.4; Prothrombin Time (Protime)PT. 25.8 SECONDS (11.7-14.9)
[2023-12-30] MEDS: Na Biphos/Potassium Phosphate PACKET 1 PACKET PO ×2 (10:20→20:51)
[2023-12-30] MEDS: Calcium Carbonate 500 MG Tablet PO (10:21)
[2023-12-30] MEDS: Lidocaine 5% Patch 1 PATCH TOPICAL (10:21)
[2023-12-30] MEDS: Lactobacillis Acidophilus 1 CAP PO (10:22)
[2023-12-30] MEDS: Multivitamin (Healthy Eyes) Capsule 1 CAP PO ×2 (10:22→18:00)
[2023-12-30] MEDS: Polyethylene Glycol 3350 17 GM PACKET PO (10:22)
[2023-12-30] MEDS: Senna/Docusate Sodium 1 Tablet 2 TABLET PO ×2 (10:22→20:53)
[2023-12-30] MEDS: Cholecalciferol (VIT D3) 25 MCG TABLET (1,000 UNITS) PO (10:23)
[2023-12-30] MEDS: Ensure Plus High Protein 120 ML LIQUID PO ×3 (12:41→20:48)
[2023-12-30] MEDS: Menthol/Lanolin/Calamine/Znox 113 GM Tube 1 APPLIC TOPICAL ×2 (12:41→20:46)
[2023-12-30 16:00] VITALS: BP 99/57; PULSE 83; RESP 16; TEMP 36.3; O2SAT 91
[2023-12-30 20:00] VITALS: O2SAT 92
[2023-12-30] MEDS: Atorvastatin Calcium 10 MG Tablet 5 MG PO (20:50)
[2023-12-30] MEDS: Mirtazapine 15 MG Tablet 7.5 MG PO (20:51)
--- NOTE | 2023-12-30 21:37 | NURSING ---
Patient bladder scanned for 353cc, unable to void, straight cathed for 350cc, continue bladder scans and voiding trial.
[2023-12-31] MEDS: Ensure Plus High Protein 120 ML LIQUID PO ×3 (05:57→22:31)
[2023-12-31] MEDS: Acetaminophen 500 MG Tablet 1000 MG PO ×3 (05:57→22:33)
[2023-12-31] MEDS: Propafenone 150 MG Tablet 225 MG PO ×3 (05:57→22:34)
[2023-12-31] MEDS: Alendronate Sodium 70 MG Tablet PO (05:59)
[2023-12-31 07:08] LABS: International Normalized Ratio 2.1; Prothrombin Time (Protime)PT. 23.5 SECONDS (11.7-14.9)
[2023-12-31 10:43] VITALS: BP 105/68; PULSE 85; RESP 16; TEMP 36.4; O2SAT 93
[2023-12-31] MEDS: Multivitamin (Healthy Eyes) Capsule 1 CAP PO ×2 (10:45→17:46)
[2023-12-31] MEDS: Menthol/Lanolin/Calamine/Znox 113 GM Tube 1 APPLIC TOPICAL ×2 (10:46→22:30)
[2023-12-31] MEDS: Lactobacillis Acidophilus 1 CAP PO (10:46)
[2023-12-31] MEDS: Lidocaine 5% Patch 1 PATCH TOPICAL (10:46)
[2023-12-31] MEDS: Na Biphos/Potassium Phosphate PACKET 1 PACKET PO ×2 (10:47→22:35)
[2023-12-31] MEDS: Senna/Docusate Sodium 1 Tablet 2 TABLET PO ×2 (10:47→22:32)
[2023-12-31] MEDS: Polyethylene Glycol 3350 17 GM PACKET PO (10:47)
[2023-12-31] MEDS: Cholecalciferol (VIT D3) 25 MCG TABLET (1,000 UNITS) PO (10:47)
[2023-12-31] MEDS: oxyCODONE 5 MG Tablet 10 MG PO ×2 (12:11→19:48)
[2023-12-31 13:14] VITALS: BP 104/63; PULSE 92
[2023-12-31] MEDS: Warfarin (BKC) 3 MG Tablet PO (17:46)
--- NOTE | 2023-12-31 19:55 | NURSING ---
Patient accepted prune juice with butter for bowel protocol.
[2023-12-31] MEDS: Mirtazapine 15 MG Tablet 7.5 MG PO (22:34)
[2023-12-31] MEDS: Atorvastatin Calcium 10 MG Tablet 5 MG PO (22:35)
--- NOTE | 2024-01-01 04:07 | NURSING ---
Patient bladder scanned for 350cc, unable to void, this is #3 failed voiding trial, 18FR 10cc ghosh inserted, immediate return of clear batsheva urine, patient tolerated well.
[2024-01-01] MEDS: Ensure Plus High Protein 120 ML LIQUID PO (05:43)
[2024-01-01] MEDS: oxyCODONE 5 MG Tablet 10 MG PO ×2 (05:44→20:38)
[2024-01-01] MEDS: Propafenone 150 MG Tablet 225 MG PO ×3 (05:45→20:45)
[2024-01-01] MEDS: Acetaminophen 500 MG Tablet 1000 MG PO ×3 (05:45→20:44)
[2024-01-01 06:15] LABS: International Normalized Ratio 1.9; Prothrombin Time (Protime)PT. 21.7 SECONDS (11.7-14.9)
[2024-01-01 08:31] VITALS: BP 102/64; PULSE 72; RESP 17; TEMP 36.2; O2SAT 93
[2024-01-01] MEDS: Lactobacillis Acidophilus 1 CAP PO (08:33)
[2024-01-01] MEDS: Multivitamin (Healthy Eyes) Capsule 1 CAP PO (08:33)
[2024-01-01] MEDS: Lidocaine 5% Patch 1 PATCH TOPICAL (08:34)
[2024-01-01] MEDS: Polyethylene Glycol 3350 17 GM PACKET PO (08:34)
[2024-01-01] MEDS: Senna/Docusate Sodium 1 Tablet 2 TABLET PO (08:34)
[2024-01-01] MEDS: Menthol/Lanolin/Calamine/Znox 113 GM Tube 1 APPLIC TOPICAL ×2 (08:34→20:38)
[2024-01-01] MEDS: Na Biphos/Potassium Phosphate PACKET 1 PACKET PO ×2 (08:34→20:45)
[2024-01-01] MEDS: Cholecalciferol (VIT D3) 25 MCG TABLET (1,000 UNITS) PO (08:35)
--- NOTE | 2024-01-01 10:28 | NURSING ---
Offered covid vaccine, VIS provided. Residents refuses at this time.
--- NOTE | 2024-01-01 10:30 | CASEMGMT ---
Social Work Dtr in room and requested to speak with this worker. SW spoke with pt and dtr on FOC and no outcome given from the insurance yet. Discussed at length the different between INN and OON with insurance and therapy cost. Also explained that pt can admit to a SNF and if he does not like it, he can DC to another facility. Both agreed to [facility]. SW updated all SNFs. Will continue to follow. Eulalia Marin, NURSE RESEARCHER [employer]'
[2024-01-01] MEDS: Magnesium Citrate 300 ML PO (11:30)
[2024-01-01 14:33] VITALS: BP 118/69; PULSE 91
--- NOTE | 2024-01-01 17:50 | RAD_ITS ---
EXAM: XR ABDOMEN, 1 VIEW CLINICAL INDICATION: Constipation. TECHNIQUE: Frontal supine view of the abdomen/pelvis. COMPARISON: 12/18/2023 FINDINGS: GASTROINTESTINAL TRACT: Moderate colonic stool and gas and mild gaseous distention of multiple loops of small bowel perhaps related to constipation. An early developing ileus/obstruction cannot be excluded. ORGANS: Normal as visualized. No organomegaly. No abnormal calcifications. BONES/JOINTS: Degenerative changes. No acute pathology. SOFT TISSUES: No acute pathology. RAD/Abdomen Single View IMPRESSION: Moderate colonic stool and gas and mild gaseous distention of multiple loops of small bowel perhaps related to constipation. An early developing ileus/obstruction cannot be excluded. Electronically Signed: Michele Linda DO at 22:36 EDT ,
[2024-01-01] MEDS: WARFARIN 3.5 MG PO (18:02)
[2024-01-01] MEDS: Lactulose 20 GM/30 ML UDC 200 GM RC (18:04)
--- NOTE | 2024-01-01 19:20 | RAD_ITS ---
EXAM: XR CHEST, 2 VIEWS CLINICAL INDICATION: Hematatemesis TECHNIQUE: Frontal and lateral views of the chest. COMPARISON: 12/20/2023 FINDINGS: LUNGS AND PLEURAL SPACES: Bibasilar pulmonary opacities are again identified which may be due to scarring, atelectasis, or pneumonia. No pneumothorax. No effusion. HEART: Borderline enlargement of the cardiac silhouette perhaps secondary to cardiomegaly and/or pericardial effusion. MEDIASTINUM: Central airways and mediastinal contour are unremarkable. BONES/JOINTS: Degenerative changes in the spine and shoulders. No acute fracture. SOFT TISSUES: No significant abnormality. VASCULATURE: Atherosclerosis. RAD/Chest PA and Lateral IMPRESSION: 1. Bibasilar pulmonary opacities are again identified which may be due to scarring, atelectasis, or pneumonia. 2. Borderline enlargement of the cardiac silhouette perhaps secondary to cardiomegaly and/or pericardial effusion. Electronically Signed: Michele Linda DO at 20:19 EDT ,
--- NOTE | 2024-01-01 19:32 | NURSING ---
Patient coughing up large amount of bloody sputum, thick, bright red. Noted by staff patient has had a couple of nose bleeds while on unit. Patient denies chest pain or shortness of breath. Bleeding/coughing subsided. Call placed to Dr. Ceballos to update. New order to HOLD Eliquis, chest xray, sputum culture, and ocean spray. VORB.
[2024-01-01 20:00] VITALS: RESP 16
[2024-01-01] MEDS: Sodium Chloride 0.65% 1 SPRAY SPRAY.BTL 2 SPRAY NASAL (20:37)
[2024-01-01] MEDS: Mirtazapine 15 MG Tablet 7.5 MG PO (20:45)
[2024-01-01] MEDS: Atorvastatin Calcium 10 MG Tablet 5 MG PO (20:46)
[2024-01-02] MEDS: Propafenone 150 MG Tablet 225 MG PO ×3 (05:43→22:12)
[2024-01-02] MEDS: Acetaminophen 500 MG Tablet 1000 MG PO ×3 (05:43→22:11)
[2024-01-02] MEDS: oxyCODONE 5 MG Tablet 10 MG PO ×3 (05:57→15:24)
[2024-01-02 06:00] VITALS: PULSE 63; RESP 16
[2024-01-02 06:15] LABS: Prothrombin Time (Protime)PT. 22.3 SECONDS (11.7-14.9)
[2024-01-02] MEDS: Lidocaine 5% Patch 1 PATCH TOPICAL (08:09)
[2024-01-02] MEDS: Cholecalciferol (VIT D3) 25 MCG TABLET (1,000 UNITS) PO (08:09)
[2024-01-02] MEDS: Senna/Docusate Sodium 1 Tablet 2 TABLET PO ×2 (08:09→22:11)
[2024-01-02] MEDS: Lactobacillis Acidophilus 1 CAP PO (08:09)
[2024-01-02] MEDS: Na Biphos/Potassium Phosphate PACKET 1 PACKET PO ×2 (08:10→22:12)
[2024-01-02] MEDS: Calcium Carbonate 500 MG Tablet PO (08:10)
[2024-01-02] MEDS: Polyethylene Glycol 3350 17 GM PACKET PO (08:10)
[2024-01-02] MEDS: Multivitamin (Healthy Eyes) Capsule 1 CAP PO (08:10)
[2024-01-02] MEDS: Doxycycline 100 MG CAPSULE PO ×2 (10:29→22:12)
[2024-01-02] MEDS: Menthol/Lanolin/Calamine/Znox 113 GM Tube 1 APPLIC TOPICAL ×2 (10:35→22:13)
[2024-01-02 10:57] VITALS: BMI 23.8
[2024-01-02 14:10] VITALS: BP 104/67; PULSE 75; RESP 16; TEMP 37.1; O2SAT 92
[2024-01-02] MEDS: Atorvastatin Calcium 10 MG Tablet 5 MG PO (22:11)
[2024-01-02] MEDS: Mirtazapine 15 MG Tablet 7.5 MG PO (22:11)
[2024-01-03] MEDS: Propafenone 150 MG Tablet 225 MG PO ×2 (05:16→21:06)
[2024-01-03] MEDS: Acetaminophen 500 MG Tablet 1000 MG PO ×3 (05:16→21:03)
[2024-01-03 06:44] LABS: Prothrombin Time (Protime)PT. 22.3 SECONDS (11.7-14.9)
[2024-01-03] MEDS: Calcium Carbonate 500 MG Tablet PO ×2 (09:56→18:15)
[2024-01-03] MEDS: Multivitamin (Healthy Eyes) Capsule 1 CAP PO ×2 (09:56→18:16)
[2024-01-03] MEDS: Lactobacillis Acidophilus 1 CAP PO (09:56)
[2024-01-03] MEDS: Menthol/Lanolin/Calamine/Znox 113 GM Tube 1 APPLIC TOPICAL ×2 (09:57→21:07)
[2024-01-03] MEDS: Lidocaine 5% Patch 1 PATCH TOPICAL (09:57)
[2024-01-03] MEDS: Doxycycline 100 MG CAPSULE PO ×2 (09:57→21:06)
[2024-01-03] MEDS: Senna/Docusate Sodium 1 Tablet 2 TABLET PO ×2 (09:59→21:06)
[2024-01-03] MEDS: Cholecalciferol (VIT D3) 25 MCG TABLET (1,000 UNITS) PO (09:59)
[2024-01-03] MEDS: Polyethylene Glycol 3350 17 GM PACKET PO (09:59)
[2024-01-03] MEDS: Na Biphos/Potassium Phosphate PACKET 1 PACKET PO ×2 (09:59→21:06)
[2024-01-03 11:33] VITALS: BP 108/69; PULSE 82; RESP 14; TEMP 36.2; O2SAT 97
[2024-01-03] MEDS: Ensure Plus High Protein 120 ML LIQUID PO ×3 (12:17→21:03)
[2024-01-03 21:05] VITALS: BP 110/68; PULSE 89
[2024-01-03] MEDS: Atorvastatin Calcium 10 MG Tablet 5 MG PO (21:06)
[2024-01-03] MEDS: Mirtazapine 15 MG Tablet 7.5 MG PO (21:06)
[2024-01-03] MEDS: oxyCODONE 5 MG Tablet 10 MG PO (21:51)
[2024-01-03 22:00] VITALS: PULSE 86; RESP 16; O2SAT 93
[2024-01-04] MEDS: Ensure Plus High Protein 120 ML LIQUID PO (05:19)
[2024-01-04] MEDS: Acetaminophen 500 MG Tablet 1000 MG PO ×3 (05:20→22:20)
[2024-01-04] MEDS: Propafenone 150 MG Tablet 225 MG PO ×3 (05:20→22:19)
[2024-01-04 06:03] LABS: Basophil% 1.5 % (0-1); Eosinophil# 0.25 X10^3/uL; Eosinophils% 3.9 % (0-5); Hematocrit 39.8 % (40-54); Hemoglobin 13.2 g/dL (13.0-16.5); Lymphocyte % 46.4 % (19-41); Mean Corp Hgb Conc 33.2 g/dL (32-36); Mean Corpuscular Hgb 31.9 pg (27.0-32.0); Mean Corpuscular Volume 96.1 fL (80-94); Mean Platelet Vol. 10.2 fl (6.2-12.0); Monocyte# 0.76 X10^3/uL; Monocyte% 11.8 % (0-10); NRBC Flagged by Analyzer 0 % (0-5); Neutrophil # 2.04 X10^3/uL (2.7-7.7); Neutrophil % 31.6 % (47-70); Platelet Count 350 K/mm3 (150-450); RBC Distribution Width CV 13.1 % (11.6-14.6); RBC Distribution Width SD 45.7 fl (35.1-43.9); Red Blood Count 4.14 M/mm3 (4.6-6.2); White Blood Count 6.5 K/mm3 (4.4-11.0)
[2024-01-04 06:29] LABS: Anion Gap 5 (5-15); BUN 14 mg/dL (7-18); BUN/Creat Ratio 26.2 RATIO (10-20); Calcium,Total 8.8 mg/dL (8.5-10.1); Chloride 106 mmol/L (98-107); Creatinine, Serum 0.53 mg/dL (0.70-1.30); EST Glomerular Filtration Rate 154 mL/min (>60); Est Glom Filt Rate - Afr Amer 187 mL/min (>60); Glucose 108 mg/dL (74-106); International Normalized Ratio 1.7; Potassium 3.8 mmol/L (3.5-5.1); Prothrombin Time (Protime)PT. 20.1 SECONDS (11.7-14.9); Sodium Level 138 mmol/L (136-145)
--- NOTE | 2024-01-04 10:07 | SP.MBSS_ITS ---
Modified Barium Swallow Patient Information Study Date: 01/04/24 Study Time: 09:30 Direct Billable Minutes: 118 Total Minutes procedure & reportin Diagnosis: C2 Cervical Fracture S12.100A Referring Physician: Nikolai Ceballos Chi Reason for Referral: Objectively assess swallow function, assess risk for aspiration, and determine recommendations for least restrictive diet textures and compensatory strategies to improve safety of swallow. Medical History: The patient is an 88-year-old male with PMH significant for hypothyroidism, osteoporosis, hyperlipidemia, CAD, a-fib and mitral regurgitation, who was hospitalized for a C2 fracture, odontoid fracture and sternal fracture, treated non-surgically with a [place] J Collar, complicated by right upper extremity weakness and urinary retention, requiring a ghosh. Pt was admitted to TCU on 12/12/23 with debility, here for rehabilitation/strengthening prior to discharge home alone. ST was consulted d/t hx of dysphagia. Pt. participated in BSE on 12/13/23. HOME HEALTH REGISTERED NURSE recommended FEES to objectively assess swallow function although was not able to be completed d/t an unexpected d/c to ED w/ acute care admission for management of nausea and constipation. Patient was re-admitted to TCU on 12/20/23 w/ orders for FEES 12/21/23. FEES revealed mild oropharyngeal dysphagia and recommended minced and moist textures / thin liquids, medication whole w/ liquids, distant supervision. Pt has since been downgraded to puree textures / thin liquids. He is presenting w/ intermittent coughing and has current PNA. He was referred for MBSS to further assess concerns for aspiration. Current Diet Ordered: Puree / Thin Dentition: Edentulous (Unable to place dentures w/ cervical fx and cervical collar in place) Mental Status: Impaired (Concern for confusion per treating HOME HEALTH REGISTERED NURSE. Pt was unaware he was being treated for PNA.) Respiratory Status: Oxygenating on Room Air Penetration-Aspiration Scale Penetration-Aspiration Scale: OBJECTIVE ASSESSMENT OF SWALLOW FUNCTION (QUANTITATIVE ? PER TRIAL): PENETRATION / ASPIRATION SCALE (LEDESMA): 1 = does not enter airway 2 = enters airway/above vocal folds/ejected 3 = enters airway/above vocal folds/not ejected 4 = enters airway/contacts vocal folds/ejected 5 = enters airway/contacts vocal folds/not ejected 6 = enters airway/below vocal folds/ejected 7 = enters airway/below vocal folds/not ejected despite effort 8 = enters airway/below vocal folds/no effort VIDEOFLOROSCOPIC SCALE SCORE (LEDESMA): Grade I = aspiration of material that has penetrated into the laryngeal vestibule, intact cough reflex Grade II = aspiration < 10 % of the bolus, intact cough reflex Grade III = aspiration of < 10 % of the bolus, reduced cough reflex or aspiration of > 10 % of the bolus, intact cough reflex Grade IV = aspiration of > 10 % of the bolus, reduced cough reflex Penetration-Aspiration Scale Score Thin Liquid via teaspoon: Result: 7= enters airways/below vocal folds/not ejected despite effort Thin Liquid via teaspoon Effortful swallow: Result: 5= enters airways/contacts vocal folds/not ejected Comment: Cued hard cough after the swallow = not effective [place] Thick Liquid via teaspoon: Result: 1= does not enter airway Comment: Post prandial aspiration of previous trial observed at the start of this trial Thin Liquid via small single sip: cup: Result: 1= does not enter airway Pudding via teaspoon: Result: 1= does not enter airway [place] Thick Liquid via single sip: straw: Result: 1= does not enter airway Thin Liquid via single sip: straw Effortful swallow: Result: 5= enters airways/contacts vocal folds/not ejected / Cookie: Comment: Pt had to spit out cookie because he was unable to chew it Oral Phase Labial Seal: Escape beyond interlabial space; no extension beyond raiana border Tongue Control During Bolus Hold: Posterior escape of greater than half of bolus Bolus Preparation/Mastication: Minimal chewing/mashing with majority of bolus unchewed Bolus Transport/Lingual Motion: Slowed tongue motion Oral Residue: Minimal to no clearance (Had to spit out cookie, unable to masticate) Pharyngeal Phase Initiation of Pharyngeal Swallow: Bolus head in pyriforms Soft Palate Elevation: Trace column of contrast/air between soft palate and pharyngeal wall Laryngeal Elevation: Partial superior movement thyroid cart/partial apprx aryt- epig petiole Anterior Hyoid Excursion: Partial anterior movement Epiglottic Movement: No inversion (thin by straw) Laryngeal Vestibule Closure at Height of Swallow: Incomplete; narrow column of air/contrast in laryngeal vestibule Pharyngeal Stripping Wave: Present - diminished Pharyngoesophageal Segment Opening: Parital distension and partial duration; parital obstruction of flow Tongue Base Retraction: Narrow column of contrast between tongue base & post. pharyngeal wall Pharyngeal Residue: Collection of residue within or on pharyngeal structures Esophageal Phase Esophageal Clearance: Esophageal retention Diagnosis/Impression Diagnosis: Moderate oropharyngeal dysphagia R13.12 Impression: The oral phase is primarily marked by... -Decreased bolus control with thin liquid via straw spilling posteriorly to the laryngeal vestibule prior to swallow onset increasing risk for aspiration. -Slowed tongue motion for A-P transport. -Pt unable to masticate 1/4 Irena Doone and had to spit it out. The pharyngeal phase is primarily marked by... -Decreased airway closure during the swallow due to decreased anterior hyoid excursion, inconsistent epiglottic inversion, and decreased laryngeal elevation. -Mild-moderate pharyngeal residue to do decreased tongue base retraction and pharyngeal stripping wave. -Aspiration of thin liquids via tsp, thin liquid via tsp with effortful swallow (post prandial). Weak, ineffective cough/throat clear in response to aspiration. Pt had deep laryngeal penetration of thin liquids via straw. Strategies (cough and re-swallow, effortful swallow) were not effective in decreasing aspiration risk. Could not trial various neck postures due to restricted ROM in cervical collar and current C2 fx. The esophageal phase is primarily marked by... -Mild esophageal retention of pudding in lower esophagus. Recommendations Diet: Puree Textures and [place]-thick Liquids Compensatory Strategies: Small Bites, Small Sips, Slow Rate, Alternate bites/solids and sips/liquids, Sitting upright and Remain sitting upright for 30 minutes after PO intake Supervision: Distant Supervision Recommend Repeat Modified Barium Swallow: Yes (After 2-4 weeks of oropharyngeal strengthening) Need for Skilled Speech Therapy Services: Yes Comment: -Train the patient in use of strategies to decrease risk for aspiration. -Ongoing assessment of diet tolerance of recommended textures. -Train the patient in oropharyngeal exercise program to improve bolus control, airway closure, tongue base retraction, and pharyngeal contraction (lingual resistance, Nickie, Alfonso). Education Completed: 1. Described result of evaluation., 2. Pt understands evaluation & agrees with goals and treatment plan. and 7. Pt requires further education on strategies & risks. Status Active ST Patient: Active Contact Information [facility] Speech Therapy:: Nita Chavez M.A. CCC-HOME HEALTH REGISTERED NURSE? Speech-Language Pathologist?? [facility] [address] [place] [address]? [email or web address]?? [phone]
[2024-01-04] MEDS: Multivitamin (Healthy Eyes) Capsule 1 CAP PO ×2 (10:08→18:07)
[2024-01-04] MEDS: Lactobacillis Acidophilus 1 CAP PO (10:08)
[2024-01-04] MEDS: Menthol/Lanolin/Calamine/Znox 113 GM Tube 1 APPLIC TOPICAL ×2 (10:08→22:21)
[2024-01-04] MEDS: Calcium Carbonate 500 MG Tablet PO ×2 (10:08→18:10)
[2024-01-04] MEDS: Doxycycline 100 MG CAPSULE PO ×2 (10:09→22:19)
[2024-01-04] MEDS: Lidocaine 5% Patch 1 PATCH TOPICAL (10:09)
[2024-01-04] MEDS: Polyethylene Glycol 3350 17 GM PACKET PO (10:09)
[2024-01-04] MEDS: Cholecalciferol (VIT D3) 25 MCG TABLET (1,000 UNITS) PO (10:10)
[2024-01-04] MEDS: Senna/Docusate Sodium 1 Tablet 2 TABLET PO ×2 (10:10→22:20)
[2024-01-04] MEDS: Na Biphos/Potassium Phosphate PACKET 1 PACKET PO (10:10)
[2024-01-04] MEDS: oxyCODONE 5 MG Tablet 10 MG PO (12:08)
[2024-01-04 13:51] VITALS: BP 105/71; PULSE 85; RESP 14; TEMP 36.9; O2SAT 95
[2024-01-04] MEDS: NYSTATIN 500,000 UNIT/5 ML UDC 500000 UNIT PO ×2 (14:13→18:09)
--- NOTE | 2024-01-04 15:43 | CHAPLAIN ---
Type of Pastoral Visit _x__ Initial Visit ___ Follow-up Visit ___ On-call Visit ___ General Patient Visit ___ Spiritual Assessment ___ Family Conference ___ Bereavement ___ Rapid Response ___ Code Blue ___ Other (describe below) Pastoral Care Referral From _x__ Patient ___ Family ___ Nurse ___ Physician ___ Registered Nurse Renal ___ Child Care Group Leader ___ Other (describe below) Sacrament/Intervention _x__ Active listening ___ Anointing ___ Gnosticism ___ Bereavement ___ Communion _x__ Belen exploration ___ ___ Life review _x__ Prayer ___ Reconciliation ___ Sacrament of Sick _x__ Supportive presence ___ Wedding ___ Other (describe below) Pastoral Comments patient expresses that it has been a difficult day for him and that he has not had visitors today; pt says that they are looking at possible pneumonia in me and that is serious ; pt was working on a large computer screen set up by his son and that pleases him to have as he listens to the radio and Denominational music; pt welcomes the visit and support is given with time to express his feelings and his belen; pt is thankful for his family; pt tries to figure out how long he has been in the hospital and how much longer he might need to be here; pt again affirms his belen in God; pt asks for future visits if possible because I so much enjoy your visits ;
[2024-01-04] MEDS: WARFARIN 3.5 MG PO (18:08)
[2024-01-04] MEDS: traMADol 50 MG Tablet PO (18:24)
[2024-01-04] MEDS: Atorvastatin Calcium 10 MG Tablet 5 MG PO (22:20)
[2024-01-04] MEDS: Mirtazapine 15 MG Tablet 7.5 MG PO (22:20)
[2024-01-04 22:24] VITALS: PULSE 79; RESP 16; O2SAT 91
[2024-01-05] MEDS: oxyCODONE 5 MG Tablet 10 MG PO ×2 (01:25→11:13)
[2024-01-05] MEDS: Ensure Plus High Protein 120 ML LIQUID PO ×4 (05:41→22:47)
[2024-01-05] MEDS: Propafenone 150 MG Tablet 225 MG PO ×3 (05:42→22:45)
[2024-01-05] MEDS: NYSTATIN 500,000 UNIT/5 ML UDC 500000 UNIT PO ×4 (05:42→22:47)
[2024-01-05] MEDS: Acetaminophen 500 MG Tablet 1000 MG PO ×3 (05:42→22:46)
[2024-01-05 06:03] VITALS: RESP 16
[2024-01-05] MEDS: Lactobacillis Acidophilus 1 CAP PO (09:10)
[2024-01-05] MEDS: Lidocaine 5% Patch 1 PATCH TOPICAL (09:10)
[2024-01-05] MEDS: Doxycycline 100 MG CAPSULE PO ×2 (09:10→22:46)
[2024-01-05] MEDS: Multivitamin (Healthy Eyes) Capsule 1 CAP PO ×2 (09:10→17:50)
[2024-01-05] MEDS: Cholecalciferol (VIT D3) 25 MCG TABLET (1,000 UNITS) PO (09:11)
[2024-01-05] MEDS: Polyethylene Glycol 3350 17 GM PACKET PO (09:11)
[2024-01-05] MEDS: Na Biphos/Potassium Phosphate PACKET 1 PACKET PO ×2 (09:11→22:45)
[2024-01-05] MEDS: Senna/Docusate Sodium 1 Tablet 2 TABLET PO ×2 (09:11→22:46)
[2024-01-05] MEDS: Calcium Carbonate 500 MG Tablet PO ×2 (09:12→17:51)
[2024-01-05] MEDS: traMADol 50 MG Tablet PO ×2 (09:22→22:46)
[2024-01-05 10:00] VITALS: BP 103/69; PULSE 79; RESP 20; TEMP 36.3; O2SAT 92
[2024-01-05] MEDS: WARFARIN 3.5 MG PO (17:50)
[2024-01-05] MEDS: Atorvastatin Calcium 10 MG Tablet 5 MG PO (22:47)
[2024-01-05] MEDS: Mirtazapine 15 MG Tablet 7.5 MG PO (22:48)
[2024-01-05] MEDS: Menthol/Lanolin/Calamine/Znox 113 GM Tube 1 APPLIC TOPICAL (22:48)
[2024-01-06] MEDS: Acetaminophen 500 MG Tablet 1000 MG PO ×3 (05:40→21:44)
[2024-01-06] MEDS: Propafenone 150 MG Tablet 225 MG PO ×3 (05:41→21:42)
[2024-01-06] MEDS: NYSTATIN 500,000 UNIT/5 ML UDC 500000 UNIT PO ×4 (05:41→21:42)
[2024-01-06] MEDS: Ensure Plus High Protein 120 ML LIQUID PO ×4 (05:41→21:49)
[2024-01-06] MEDS: traMADol 50 MG Tablet PO ×2 (08:48→21:49)
[2024-01-06] MEDS: Multivitamin (Healthy Eyes) Capsule 1 CAP PO ×2 (08:49→17:44)
[2024-01-06] MEDS: Doxycycline 100 MG CAPSULE PO ×2 (08:49→21:44)
[2024-01-06] MEDS: Na Biphos/Potassium Phosphate PACKET 1 PACKET PO ×2 (08:49→21:44)
[2024-01-06] MEDS: Lidocaine 5% Patch 1 PATCH TOPICAL (08:50)
[2024-01-06] MEDS: Cholecalciferol (VIT D3) 25 MCG TABLET (1,000 UNITS) PO (08:52)
[2024-01-06] MEDS: Senna/Docusate Sodium 1 Tablet 2 TABLET PO ×2 (08:52→21:42)
[2024-01-06] MEDS: Lactobacillis Acidophilus 1 CAP PO (08:52)
[2024-01-06] MEDS: Polyethylene Glycol 3350 17 GM PACKET PO (08:53)
[2024-01-06] MEDS: Menthol/Lanolin/Calamine/Znox 113 GM Tube 1 APPLIC TOPICAL ×2 (08:53→21:45)
[2024-01-06 11:34] VITALS: PULSE 83; RESP 16; O2SAT 90
[2024-01-06 16:00] VITALS: BP 111/74; PULSE 80; RESP 14; TEMP 36.5; O2SAT 95
[2024-01-06] MEDS: WARFARIN 3.5 MG PO (17:46)
[2024-01-06] MEDS: Mirtazapine 15 MG Tablet 7.5 MG PO (21:43)
[2024-01-06] MEDS: Atorvastatin Calcium 10 MG Tablet 5 MG PO (21:45)
[2024-01-07] MEDS: Ensure Plus High Protein 120 ML LIQUID PO ×4 (05:50→20:39)
[2024-01-07] MEDS: Acetaminophen 500 MG Tablet 1000 MG PO ×3 (05:50→20:33)
[2024-01-07] MEDS: Propafenone 150 MG Tablet 225 MG PO ×3 (05:51→20:32)
[2024-01-07] MEDS: NYSTATIN 500,000 UNIT/5 ML UDC 500000 UNIT PO ×4 (05:51→20:32)
[2024-01-07] MEDS: traMADol 50 MG Tablet PO ×3 (05:52→20:40)
[2024-01-07] MEDS: Alendronate Sodium 70 MG Tablet PO (05:56)
[2024-01-07] MEDS: Lactobacillis Acidophilus 1 CAP PO (09:03)
[2024-01-07] MEDS: Doxycycline 100 MG CAPSULE PO ×2 (09:04→20:29)
[2024-01-07] MEDS: Cholecalciferol (VIT D3) 25 MCG TABLET (1,000 UNITS) PO (09:04)
[2024-01-07] MEDS: Multivitamin (Healthy Eyes) Capsule 1 CAP PO ×2 (09:04→18:12)
[2024-01-07] MEDS: Lidocaine 5% Patch 1 PATCH TOPICAL (09:05)
[2024-01-07] MEDS: Na Biphos/Potassium Phosphate PACKET 1 PACKET PO ×2 (09:05→20:31)
[2024-01-07] MEDS: Menthol/Lanolin/Calamine/Znox 113 GM Tube 1 APPLIC TOPICAL ×2 (09:05→20:29)
[2024-01-07] MEDS: Calcium Carbonate 500 MG Tablet PO ×2 (09:06→18:14)
[2024-01-07 16:00] VITALS: BP 100/65; PULSE 73; RESP 16; TEMP 36.4; O2SAT 95
[2024-01-07] MEDS: WARFARIN 3.5 MG PO (18:13)
[2024-01-07] MEDS: Atorvastatin Calcium 10 MG Tablet 5 MG PO (20:31)
[2024-01-07] MEDS: Mirtazapine 15 MG Tablet 7.5 MG PO (20:32)
[2024-01-07 20:52] VITALS: RESP 18; O2SAT 92
[2024-01-08] MEDS: traMADol 50 MG Tablet PO ×3 (03:56→16:17)
[2024-01-08] MEDS: Ensure Plus High Protein 120 ML LIQUID PO ×2 (06:02→16:18)
[2024-01-08] MEDS: NYSTATIN 500,000 UNIT/5 ML UDC 500000 UNIT PO ×4 (06:02→20:56)
[2024-01-08] MEDS: Acetaminophen 500 MG Tablet 1000 MG PO ×3 (06:03→20:55)
[2024-01-08] MEDS: Propafenone 150 MG Tablet 225 MG PO ×3 (06:03→20:55)
[2024-01-08 07:50] LABS: International Normalized Ratio 1.8; Prothrombin Time (Protime)PT. 21.2 SECONDS (11.7-14.9)
[2024-01-08] MEDS: Na Biphos/Potassium Phosphate PACKET 1 PACKET PO ×2 (10:02→20:55)
[2024-01-08] MEDS: Lidocaine 5% Patch 1 PATCH TOPICAL (10:03)
[2024-01-08] MEDS: Lactobacillis Acidophilus 1 CAP PO (10:03)
[2024-01-08] MEDS: Doxycycline 100 MG CAPSULE PO ×2 (10:03→20:55)
[2024-01-08] MEDS: Calcium Carbonate 500 MG Tablet PO ×2 (10:03→16:18)
[2024-01-08] MEDS: Cholecalciferol (VIT D3) 25 MCG TABLET (1,000 UNITS) PO (10:03)
[2024-01-08] MEDS: Multivitamin (Healthy Eyes) Capsule 1 CAP PO ×2 (10:03→16:18)
[2024-01-08] MEDS: Menthol/Lanolin/Calamine/Znox 113 GM Tube 1 APPLIC TOPICAL ×2 (10:09→20:57)
--- NOTE | 2024-01-08 11:38 | CASEMGMT ---
Social Work SW updated pt's dtr via email and [facility] that insurance approved with [employer] 01/14. SW will continue to follow. Eulalia Marin, SUPERVISOR VENDOR QUALITY TELEPHONE INFORMATION SUPERVISOR
[2024-01-08 15:09] VITALS: BP 110/62; PULSE 78; RESP 16; TEMP 36.8; O2SAT 97
[2024-01-08] MEDS: WARFARIN 3.5 MG PO (16:18)
[2024-01-08] MEDS: Atorvastatin Calcium 10 MG Tablet 5 MG PO (20:55)
[2024-01-08] MEDS: Mirtazapine 15 MG Tablet 7.5 MG PO (20:56)
--- NOTE | 2024-01-08 22:22 | NURSING ---
patient coughing up moderate amount of bright red blood. Second RN present in room. Resps even and unlabored, no distress observed or reported. Dr. Ceballos contacted. Reviewed MAY, new orders received: Hold Coumadin until further notice, set up pulmonary appointment for hemoptysis. Orders repeated back
[2024-01-09] MEDS: traMADol 50 MG Tablet PO ×2 (01:12→17:52)
[2024-01-09] MEDS: Propafenone 150 MG Tablet 225 MG PO ×3 (06:39→21:36)
[2024-01-09] MEDS: NYSTATIN 500,000 UNIT/5 ML UDC 500000 UNIT PO ×3 (06:39→16:42)
[2024-01-09] MEDS: Ensure Plus High Protein 120 ML LIQUID PO ×2 (06:40→21:35)
[2024-01-09] MEDS: Acetaminophen 500 MG Tablet 1000 MG PO ×3 (06:40→21:36)
[2024-01-09 08:34] VITALS: BP 114/71; PULSE 78; RESP 16; TEMP 36.3; O2SAT 98
[2024-01-09] MEDS: Senna/Docusate Sodium 1 Tablet 2 TABLET PO (08:36)
[2024-01-09] MEDS: Calcium Carbonate 500 MG Tablet PO (08:36)
[2024-01-09] MEDS: Cholecalciferol (VIT D3) 25 MCG TABLET (1,000 UNITS) PO (08:37)
[2024-01-09] MEDS: Na Biphos/Potassium Phosphate PACKET 1 PACKET PO (08:37)
[2024-01-09] MEDS: Doxycycline 100 MG CAPSULE PO (08:37)
[2024-01-09] MEDS: Multivitamin (Healthy Eyes) Capsule 1 CAP PO ×2 (08:37→16:42)
[2024-01-09] MEDS: Menthol/Lanolin/Calamine/Znox 113 GM Tube 1 APPLIC TOPICAL ×2 (08:38→21:39)
[2024-01-09] MEDS: Lidocaine 5% Patch 1 PATCH TOPICAL (08:38)
[2024-01-09] MEDS: Lactobacillis Acidophilus 1 CAP PO (08:38)
--- NOTE | 2024-01-09 09:50 | CASEMGMT ---
Social Work SW notified by MANAGER SOURCING that pt adamantly refused ST session and stated he was done . SW spoke with pt at bedside. SW and pt conversed at length about how he is feeling, doing with therapy, his emotions, his treatment goals. SW provided ongoing supportive listening. Pt explained he gets frustrated with his lack of independence and functional abilities, and can get upset in the moment, i.e. refusing ST. Pt expressed today being very anxious of why he coughed up blood. SW explored treatment goals. Pt explained he would want to get answers to any medical complications and pursue treatment, if needed. Pt confirmed he remains motivated to improving in therapy, building strength, and regaining independence. Pt explained he walked 50 ft yesterday though it wore him out and knows he cannot do that again today, though he still wants to work with therapy. Pt stated it is uncomfortable to sit in the recliner chair or the w/c, and he prefers to remain in bed the majority of the time. Pt stated I am not giving up . SW acknowledged and praised pt's motivation and remaining future oriented. SW requested for pt to notify this worker if his wishes or treatment goals change and this worker will assist. Pt expressed understanding and appreciation. Therapy entered room for session and pt agreed. SW will continue to follow for ongoing support. VINI Sher
[2024-01-09 10:26] VITALS: BMI 23.6
--- NOTE | 2024-01-09 11:08 | NURSING ---
R' C/O NAUSEA/POOR APPETITE. ALSO, BELCHING A LOT . HAS BEEN FATIGUED TODAY. BS PRESENT X4, HYPOACTIVE, NON-DISTENDED. NOTIFIED DR LARKIN. Ignacio ANDERSEN.
--- NOTE | 2024-01-09 11:23 | NURSING ---
Addendum entered by Hayde Hand 01/09/24 12:44: Updated dtr Hannah. She does not want to try to take resident outside [facility] to a different pulmonology office. Let her know RN will update Dr. Ceballos and see what he wants to do from here. She was thankful for call, agreed with plan. Original Note: Stockroom Helper won't do consult on TCU. Asked dtr Hannah about going with resident to an appt. She was fine with RN scheduling appt. if she only had to transport resident within [facility]. Called pulmonology, they are scheduling into June. Appt not made.
--- NOTE | 2024-01-09 13:35 | RAD_ITS ---
STUDY: X-RAY - ABDOMEN/PELVIS REASON FOR EXAM: Male, 88 years old. NAUSEA, POOR APPETITE TECHNIQUE: Single AP view of the abdomen / pelvis. COMPARISON: Comparison is made with prior study dated January 01, 2024. FINDINGS: There is a moderate amount of colonic fecal material. The visualized liver, spleen and kidneys are grossly normal in size and morphology. There are calcified phleboliths in the pelvis. There are diffuse degenerative changes of the visualized lumbar spine. RAD/Abdomen Single View IMPRESSION: Moderate amount of fecal material is seen in the colon. Electronically Signed: Ayden Garza MD at 14:11 EST ,
[2024-01-09 14:35] VITALS: BP 112/75; PULSE 82
[2024-01-09] MEDS: Magnesium Citrate 300 ML PO ×2 (14:50→17:47)
--- NOTE | 2024-01-09 18:00 | NURSING ---
Updated Dr. Ceballos on KUD. PRN Magnesium Citrate given at 1450. New order for Magnesium Citrate x1 and Lactulose.
--- NOTE | 2024-01-09 18:03 | NURSING ---
Dr. Ceballos updated on patient's nose bleed this evening. Small amount. Resolved quickly. Patient did bring up small amount of blood with coughing. New order to consult ENT.
[2024-01-09] MEDS: Atorvastatin Calcium 10 MG Tablet 5 MG PO (21:37)
[2024-01-09] MEDS: Mirtazapine 15 MG Tablet 7.5 MG PO (21:38)
[2024-01-09] MEDS: Sodium Chloride 0.65% 1 SPRAY SPRAY.BTL 2 SPRAY NASAL (21:38)
--- NOTE | 2024-01-09 23:54 | NURSING ---
During HS medication administration, patient said to this nurse, Give me the puke bag, I feel it coming back up. Patient had one episode of emesis. Patient stated he felt better. Patient refused to drink last 120ml of mag citrate that was administered by dayshift RN. No signs or symptoms of distress. Patient resting in bed listening to music, call light in reach, HOB elevated above 30 degrees.
[2024-01-10 04:45] VITALS: BP 95/72; PULSE 88; RESP 16; TEMP 36.2; O2SAT 93
--- NOTE | 2024-01-10 04:45 | NURSING ---
Resident calls staff reporting he is going to cough up blood. This nurse and WARPING MACHINE OPERATOR at bedside. Coughed up a large amount of bloody sputum and a moderate amount of small clots. Resident denies any chest pain, shortness of breath, lightheadedness, or dizziness. Denies any pain w/ coughing. Lungs w/ rhonchi b/l anterior and fine crackles to b/l bases posterior. In no acute distress. Vitals obtained and recorded. SpO2 on room air ranges from 88-93%. Level drops to 88% w/ cough and speaking but is able to converse without any difficulty. Skin color remains pink. HOB remains elevated to resident comfort level as he anticipates he will cough up more blood. Will continue to monitor.
[2024-01-10] MEDS: Ensure Plus High Protein 120 ML LIQUID PO ×3 (05:24→21:49)
[2024-01-10] MEDS: Propafenone 150 MG Tablet 225 MG PO ×2 (05:25→14:53)
[2024-01-10] MEDS: Acetaminophen 500 MG Tablet 1000 MG PO ×3 (05:25→21:54)
--- NOTE | 2024-01-10 07:27 | NURSING ---
updated dr parkinson on pt continue to have hemoptysis, new order for CTA chest for possible PE's. pt is on anticoagulant. Last INR 1.8 01/08/24
--- NOTE | 2024-01-10 08:35 | NURSING ---
Received auth for CTA chest, case #[id number]. Auth #[id number]. Order faxed to CT.
[2024-01-10 09:42] VITALS: BP 105/73; PULSE 80; RESP 16; TEMP 36.3; O2SAT 93
[2024-01-10] MEDS: Lactobacillis Acidophilus 1 CAP PO (09:44)
[2024-01-10] MEDS: Lactulose 20 GM/30 ML UDC PO (09:44)
[2024-01-10] MEDS: Multivitamin (Healthy Eyes) Capsule 1 CAP PO (09:44)
[2024-01-10] MEDS: Calcium Carbonate 500 MG Tablet PO (09:44)
[2024-01-10] MEDS: Menthol/Lanolin/Calamine/Znox 113 GM Tube 1 APPLIC TOPICAL ×2 (09:44→21:54)
[2024-01-10] MEDS: Polyethylene Glycol 3350 17 GM PACKET PO (09:45)
[2024-01-10] MEDS: Lidocaine 5% Patch 1 PATCH TOPICAL (09:45)
[2024-01-10] MEDS: Senna/Docusate Sodium 1 Tablet 2 TABLET PO (09:46)
[2024-01-10] MEDS: Cholecalciferol (VIT D3) 25 MCG TABLET (1,000 UNITS) PO (09:46)
[2024-01-10] MEDS: Na Biphos/Potassium Phosphate PACKET 1 PACKET PO (09:46)
--- NOTE | 2024-01-10 10:09 | NURSING ---
pt off unit via bed to CT
--- NOTE | 2024-01-10 11:50 | NURSING ---
dr parkinson updated on CT scan results showing RUL pumonary artery PE, new orders received
--- NOTE | 2024-01-10 11:54 | NURSING ---
Updated Dr. Ceballos on CTA results. New orders to DC warfarin, order xarelto 15mg BID x21 days. Then 20mg xarelto daily after that.
[2024-01-10] MEDS: Rivaroxaban 15 MG Tablet PO (14:47)
[2024-01-10] MEDS: traMADol 50 MG Tablet PO (14:52)
[2024-01-10 15:05] VITALS: BP 131/80; PULSE 99
--- NOTE | 2024-01-10 15:41 | NURSING ---
dr parkinson notified of pt having hematuria in ghosh bag now, had emesis after eating lunch, then just had another emesis w/brownish/red color liquid. pt c/o pain did give ultram with applesauce & able to hold it down. linens changed. HOB elevated. soft touch call light in reach. Dr parkinson updated, new order to stop xarelto and notify daughter Hannah regarding pt either being treated in ER or go hospice.
--- NOTE | 2024-01-10 16:23 | NURSING ---
dr parkinson here and speaking with Hannah, daughter at this time. new orders for doppler BLE's, stop all anticoagulation, UA c&s, STAT CBCD, occult stool, consult vascular for IVC filter placement
[2024-01-10 17:04] LABS: Absolute Lymphocyte Count 1.68 X10^3/uL (0.83-4.51); Absolute Neutrophil Count 14.3 X10^3/uL (2.0-7.7); Basophil% 0.6 % (0-1); Eosinophil# 0.01 X10^3/uL; Eosinophils% 0.1 % (0-5); Hematocrit 45.1 % (40-54); Hemoglobin 14.8 g/dL (13.0-16.5); Lymphocyte # 1.68 X10^3/ul (0.83-4.51); Lymphocyte % 9.5 % (19-41); Mean Corp Hgb Conc 32.8 g/dL (32-36); Mean Corpuscular Hgb 31.6 pg (27.0-32.0); Mean Corpuscular Volume 96.4 fL (80-94); Mean Platelet Vol. 10.3 fl (6.2-12.0); Monocyte# 1.09 X10^3/uL; Monocyte% 6.2 % (0-10); NRBC Flagged by Analyzer 0 % (0-5); Neutrophil # 14.32 X10^3/uL (2.7-7.7); Neutrophil % 81.2 % (47-70); Platelet Count 294 K/mm3 (150-450); RBC Distribution Width CV 13.1 % (11.6-14.6); RBC Distribution Width SD 46.4 fl (35.1-43.9); Red Blood Count 4.68 M/mm3 (4.6-6.2); White Blood Count 17.6 K/mm3 (4.4-11.0)
--- NOTE | 2024-01-10 18:24 | CON.PCM.SX_ITS ---
Assessment & Plan Assessment/Plan (1) Pulmonary embolism: PLAN: He has right upper lobe pulmonary embolism. There are signs concerning for possible hematuria and hematemesis in addition to his witnessed hemoptysis; however, his hemoglobin is stable and within normal range today and he is hemodynamically stable. There is also concern for his ability to tolerate anticoagulation long-term. I agree that if his anticoagulation is held for workup of possible hematemesis/hematuria then IVC filter placement is recommended. Unfortunately, Dr. Roldan is out of town this week so I recommended transfer to outside facility for IVC filter placement as soon as possible. I spoke with patient and his daughter Hannah and both have declined transfer at this time with understanding of risks including further pulmonary embolism which can result in further morbidity or . We can add him for IVC filter insertion here as an outpatient Sunday 01/14 at the earliest. I would be hesitant to hold anticoagulation for this length of time in the absence of life- threatening bleeding. As long as his hemoglobin remains stable I would recommend considering at least prophylactic Lovenox in this interim. Will continue to follow. HPI Consult Data Date of Consult: 01/10/24 HPI Narrative HPI Narrative: Katharine MENDIETA, is a 88 M who is in the TCU for rehab following C2 fracture being managed nonoperatively. On 01/07 nursing notes indicate patient had an episode of hemoptysis. His Coumadin was held at that time, INR on 01/07 was 1.8. He had an episode of epistaxis with further hemoptysis on 01/08. Subsequently he had CTA chest this morning 01/09 which showed right lobe pulmonary embolism. At this time, he was started on Xarelto. Then later this morning and this afternoon he has been noted to have a few more episodes of hemoptysis in addition to a couple episodes of vomiting with nursing describing the vomitus is pink/brown-tinged. Nursing also describes urine from his Calixto catheter is brown-tinged. Due to these findings concerning for hematemesis and hematuria, his Xarelto was held and we are consulted for consideration of IVC filter placement. Lower extremity venous duplex is pending. Urinalysis is pending. Hemoccult stool is pending. Stat CBC late this afternoon showed hemoglobin 14.8 which is actually improved from his last hemoglobin of 13.2 on 01/03. Notably, his white blood cell count is elevated to 17.6 from 6.5. He is hemodynamically stable. He is saturating at 93% on room air at rest, nursing noted some desaturations to 88% with activity earlier today. He denies any chest pain. He reports intermittent SOB. FORMERLY [facility], [facility]–1983 Medical History Urinary retention Hypothyroidism Osteoporosis Hyperlipidemia Coronary artery disease Atrial fibrillation Mitral regurgitation Right arm weakness Sternal fracture Odontoid fracture Closed C2 fracture Fall Debility Home Medications ?Medication ?Instructions ?Recorded ?Last Taken ?Type Lactobacillus acidophilus 10 mg PO DAILY supplement 12/12/23 Unknown History (Acidophilus capsule) alendronate 70 mg tablet 70 mg PO QWEEK bone health 12/12/23 Unknown History ascorbic acid (vitamin C) 500 mg 500 mg PO DAILY supplement 12/12/23 Unknown History capsule aspirin 81 mg chewable tablet 1 tab PO DAILY heart health 12/12/23 Unknown History calcium citrate 500 mg PO BID supplement 12/12/23 Unknown History cholecalciferol (vitamin D3) 25 25 mcg PO DAILY supplement 12/12/23 Unknown History mcg (1,000 unit) capsule dexamethasone 1 mg tablet 0.5 mg PO DAILY inflammation 12/12/23 Unknown History dexamethasone 2 mg tablet 2 mg PO BID inflammation 12/12/23 Unknown History dexamethasone 2 mg tablet 2 mg PO DAILY inflammation 12/12/23 Unknown History dexamethasone 2 mg tablet 4 mg PO BID inflamation 12/12/23 Unknown History dexamethasone 2 mg tablet 4 mg PO TID inflamation 12/12/23 Unknown History glucosamine sulfate 500 mg tablet 500 mg PO DAILY supplement 12/12/23 Unknown History (Glucosamine) multivitamin (Daily Multi-Vitamin 1 tab PO DAILY supplement 12/12/23 Unknown History tablet) oxycodone 5 mg tablet 5 mg PO Q6H PRN pain 1-10 12/12/23 Unknown History propafenone 225 mg tablet 225 mg PO TID AFIB 12/12/23 Unknown History simvastatin 10 mg tablet 5 mg PO QHS cholesterol 12/12/23 Unknown History turmeric 400 mg capsule 400 mg PO DAILY supplement 12/12/23 Unknown History vit C 250 mg-vit E 200 unit-zinc 2 cap PO BID supplement 12/12/23 Unknown History ox 12.5 om-hssesh-cxnzsy-zeax capsule vitamin B complex (Vitamins B 1 cap PO DAILY supplement 12/12/23 Unknown History Complex capsule) vitamin E 100 unit capsule 201 mg PO DAILY supplement 12/12/23 Unknown History warfarin 4 mg tablet 4 mg PO DAILY AFIB 12/12/23 Unknown History acetaminophen 500 mg tablet 1,000 mg (2 x 500 mg) PO Q8 pain 12/20/23 Unknown Rx #0 tabs food supplemt, lactose-reduced 120 ml PO 4X/DAY supplement #0 mL 12/20/23 Unknown Rx 0.08 gram-1.5 kcal/mL oral liquid (Ensure Plus High Protein) menthol 0.44 %-zinc oxide 20.6 % 1 applic topical BID skin 12/20/23 Unknown Rx topical ointment (Calmoseptine) protectant #0 grams metoclopramide HCl 10 mg tablet 10 mg PO Q6H nausea and vomiting 12/20/23 Unknown Rx (Reglan) #20 tabs metronidazole 500 mg tablet 500 mg PO TID infection #20 tabs 12/20/23 Unknown Rx nitroglycerin 0.4 mg sublingual 0.4 mg sublingual Q5M PRN 12/20/23 Unknown Rx tablet Cardiac/Chest Pain #0 tabs nystatin 100,000 unit/mL oral 500,000 unit (5 mL) PO 4X/DAY 12/20/23 Unknown Rx suspension thrush 10 days #200 mL polyethylene glycol 3350 17 17 g PO DAILY bowels #119 grams 12/20/23 Unknown Rx gram/dose oral powder potassium, sodium phosphates 280 1 packet PO BID supplement #0 ea 12/20/23 Unknown Rx mg-160 mg-250 mg oral powder packet tramadol 50 mg tablet 50 mg PO Q6H PRN PRN Pain Score 12/20/23 Unknown Rx 1-5 2 days #4 tabs Allergy/AdvReac Type Severity Reaction Status Date / Time Penicillins Allergy Mild Rash Verified 12/15/23 03:27 Family History Sister Cancer Brother CAD (coronary artery disease) Brother CAD (coronary artery disease) Brother Diabetes Brother CAD (coronary artery disease) Surgical History History of coronary angioplasty History of vasectomy History of cataract surgery History of resection of large bowel Social History household members: none Smoking Status: Never smoker alcohol intake: never substance use type: does not use Medical Records Data Medical Nutrition Assessment Dietitian: Malnutrition Criteria Met Start: 01/03/24 15:23 Freq: Status: Active Protocol: Document 01/03/24 15:24 SLA (Rec: 01/03/24 15:24 SLA [id number]) Nutrition Malnutrition Evidence of Malnutrition Exists Yes Malnutrition (severe): Acute Illness/Injury Evidenced By Suboptimal Energy Intake ( Severe),Weight Loss (Severe) Intake Problem Inadequate Oral Intake Status Inactive Problem Clinical Problem Acute Disease or Injury Related Malnutrition Etiology related to mouth pain when eating and on modified consistency diet - decreased energy intake Signs/Symptoms as evidenced by 7.9% unplanned wt loss and po intake meeting <75% of est nutritional needs x 1 wk Status Active Problem Recommendation Dietitian Recommendations/Changes Continue regular diet per VESSEL SPECIALIST consistency/texture recommendations. Continue 120ml ensure plus high protein 4x daily with medpass Continue CIB to 4 oz bid w/ meals Continue appetite stimulant Rec consider short term nutrition supplementation to help prevent further decline in nutrition status and if in accordance w/ res/family wishes. Lab / Micro Data 01/10/24 16:47 01/04/24 05:08 Labs: Laboratory Results - last 24 hr 01/10/24 16:47: WBC 17.6 H, RBC 4.68, Hgb 14.8, Hct 45.1, MCV 96.4 H, MCH 31.6, MCHC 32.8, RDW Std Deviation 46.4 H, RDW Coeff of Isabel 13.1, Plt Count 294, MPV 10.3, Immature Gran % (Auto) 2.400 H, Neut % (Auto) 81.2 H, Lymph % (Auto) 9.5 L , Turner % (Auto) 6.2, Eos % (Auto) 0.1, Baso % (Auto) 0.6, Absolute Neuts (auto) 14.3 H, Absolute Lymphs (auto) 1.68, Nucleated RBC % 0 Charges/Coding Visit Charges Inpatient E&M: 36672 SNF Init L2
--- NOTE | 2024-01-10 18:40 | NURSING ---
jose r Gomez PA here to speak with pt regarding PE
[2024-01-10 20:02] LABS: Bacteria 0 SEEN /hpf (None Seen); Mucous, Urine 0 SEEN /hpf (<or=2+); Squamous Epithelial Cells - UA 0 SEEN /hpf (0-5)
[2024-01-10 20:03] LABS: Color, Urine Amber (Yellow); Glucose, Dipstick Normal (Normal); Ketone-Dipstick 50 mg/dl (Negative); Leukocyte Esterase-Dipstick 100 /ul (Negative); Nitrite-Dipstick Negative (Negative); Occult Blood-Urine 250 /ul (Negative); Protein-Dipstick 100 mg/dl (Negative); Urine Bilirubin Dipstick Negative (Negative); Urine Clarity Cloudy (Clear); Urine Urobilinogen Normal (Normal)
[2024-01-10 20:27] LABS: Red Blood Cells-Urine > 100 SEEN /hpf (0-5); White Blood Cells 5-10 SEEN /hpf (0-5)
[2024-01-10 21:40] VITALS: RESP 16
--- NOTE | 2024-01-11 01:00 | NURSING ---
Patient refused medications at HS d/t nausea. Patient states to this nurse, my stomach just can't take it right now, I just want some tylenol and ensure. SYDNI tylenol and SYDNI ensure administered. Patient reports to this nurse he does not have a lot of hope regarding his condition. Patient reports feeling miserable. This nurse reassured patient that the healthcare team is doing the best to provide him quality care and to remain hopeful, continuing to participate in care. Patient verbalized understanding.
[2024-01-11] MEDS: Acetaminophen 500 MG Tablet 1000 MG PO ×3 (05:54→21:36)
[2024-01-11] MEDS: Propafenone 150 MG Tablet 225 MG PO ×3 (05:54→21:37)
[2024-01-11] MEDS: Ensure Plus High Protein 120 ML LIQUID PO ×4 (05:54→21:34)
[2024-01-11] MEDS: Enoxaparin 40 MG/0.4 ML Syringe SC (05:55)
[2024-01-11 06:06] VITALS: PULSE 63; RESP 16
[2024-01-11 07:12] LABS: Absolute Lymphocyte Count 2.48 X10^3/uL (0.83-4.51); Absolute Neutrophil Count 13.8 X10^3/uL (2.0-7.7); Basophil% 0.6 % (0-1); Eosinophil# 0.24 X10^3/uL; Eosinophils% 1.3 % (0-5); Hematocrit 43.4 % (40-54); Hemoglobin 14.2 g/dL (13.0-16.5); Lymphocyte # 2.48 X10^3/ul (0.83-4.51); Lymphocyte % 13.7 % (19-41); Mean Corp Hgb Conc 32.7 g/dL (32-36); Mean Corpuscular Hgb 31.6 pg (27.0-32.0); Mean Corpuscular Volume 96.7 fL (80-94); Monocyte# 0.94 X10^3/uL; Monocyte% 5.2 % (0-10); NRBC Flagged by Analyzer 0 % (0-5); Neutrophil # 13.78 X10^3/uL (2.7-7.7); Neutrophil % 76.2 % (47-70); Platelet Count 290 K/mm3 (150-450); RBC Distribution Width CV 13.2 % (11.6-14.6); RBC Distribution Width SD 46.5 fl (35.1-43.9); Red Blood Count 4.49 M/mm3 (4.6-6.2); White Blood Count 18.1 K/mm3 (4.4-11.0)
[2024-01-11 07:31] LABS: Anion Gap 5 (5-15); BUN 22 mg/dL (7-18); BUN/Creat Ratio 32.6 RATIO (10-20); Calcium,Total 9.1 mg/dL (8.5-10.1); Chloride 105 mmol/L (98-107); Creatinine, Serum 0.68 mg/dL (0.70-1.30); EST Glomerular Filtration Rate 118 mL/min (>60); Est Glom Filt Rate - Afr Amer 143 mL/min (>60); Glucose 162 mg/dL (74-106); Potassium 4.4 mmol/L (3.5-5.1); Sodium Level 137 mmol/L (136-145)
--- NOTE | 2024-01-11 09:53 | CASEMGMT ---
Social Work SW reviewed nurses notes and Dr aamir about conversation had with pt and dtr the night prior. SW spoke with pt at bedside to follow up on treatment goals. SW referenced last night wishes of being done . Pt acknowledged, I know, I know. But I was feeling really bad, and I'm better now. I want to keep fighting . SW asked in multiple ways about pt pursuing treatment in whatever that entailed, and pt confirmed each time. SW then confirmed pt plans and wishes to continue with therapy. However, pt then retracted stating I am just so weak and it's hard to do therapy right now. . SW acknowledged pt's weakness and the toll his body is going through. However, noted the improvements pt has made with therapy, and therapy will help improve pt's activity tolerance and strength. Though, explained it pt does not want to continue with therapy, pt can transfer to [facility] and allow time for his body to rest. Pt denied wanting to transfer currently, but then deferred to Hannah to make the decision. Pt stated he spoke with Hannah yesterday, and noted conversation with Dr. Ceballos, recalling, I think that's what we decided on, was to keep fighting and do the treatment . SW agreed to speak with Hannah, but explained this is pt's decision to make; it's his body. Pt expressed understanding and stated, I trust Hannah with my whole body. She knows what is best to do . SW confirmed. SW encouraged pt to participate in therapy today, or at least attempt each day. pt agreed. SW phoned dtr to discuss conversation with Dr. Ceballos and with pt. Dtr agreed pt is talking out of both sides of his mouth and struggles to have that motivation with harder tasks. Dtr confirmed pt does react in the moment, but once he has time to reflect, he can think clearer and make a big picture decision. Dtr agreed for pt to continue with treatment, explained pt told dtr he is not ready to give up yet . Dtr confirmed pt still has fight left in him . Dtr explained even if pt were to elect hospice, he still cannot come home, and she isn't sure he understands that. SW acknowledged as pt still needs significant assistance with all tasks. SW summarized conversation confirming for pt to continue with therapy and medical treatment, and remain in TCU until insurance issues DC. Dtr confirmed and is aware insurance will note the times pt refuses in therapy. SW provided support and will continue to follow to assist. Dtr appreciative. Eulalia Marin, ENROBER TENDER KIDNEY TRIMMER
[2024-01-11] MEDS: Multivitamin (Healthy Eyes) Capsule 1 CAP PO ×2 (11:13→17:31)
[2024-01-11] MEDS: Senna/Docusate Sodium 1 Tablet 2 TABLET PO ×2 (11:16→21:38)
[2024-01-11] MEDS: Cholecalciferol (VIT D3) 25 MCG TABLET (1,000 UNITS) PO (11:16)
[2024-01-11] MEDS: Lidocaine 5% Patch 1 PATCH TOPICAL (11:17)
[2024-01-11] MEDS: traMADol 50 MG Tablet PO ×2 (12:27→21:34)
--- NOTE | 2024-01-11 12:45 | NURSING ---
Updated per HARBOR DEPARTMENT MANAGER that Dr. Roldan's staff called, resident will go for IVC filter placement on Monday01/15/24 at 0830. Needs to be NPO and have chlorhexidine bath prior to procedure.
[2024-01-11 14:10] VITALS: BP 110/86; PULSE 96; RESP 18; TEMP 36.7; O2SAT 94
--- NOTE | 2024-01-11 14:41 | NURSING ---
training technician reports left soleal clot, they let Coretta Gomez with vascular know. Updated Dr. Ceballos.
[2024-01-11] MEDS: Menthol/Lanolin/Calamine/Znox 113 GM Tube 1 APPLIC TOPICAL (21:35)
[2024-01-11] MEDS: Atorvastatin Calcium 10 MG Tablet 5 MG PO (21:36)
[2024-01-11] MEDS: Na Biphos/Potassium Phosphate PACKET 1 PACKET PO (21:36)
[2024-01-11] MEDS: Mirtazapine 15 MG Tablet 7.5 MG PO (21:37)
[2024-01-12] MEDS: Ensure Plus High Protein 120 ML LIQUID PO ×4 (06:10→22:24)
[2024-01-12] MEDS: traMADol 50 MG Tablet PO ×3 (06:10→18:38)
[2024-01-12] MEDS: Enoxaparin 40 MG/0.4 ML Syringe SC (06:11)
[2024-01-12] MEDS: NYSTATIN 500,000 UNIT/5 ML UDC 500000 UNIT PO ×2 (06:11→22:14)
[2024-01-12] MEDS: Propafenone 150 MG Tablet 225 MG PO ×3 (06:11→22:18)
[2024-01-12] MEDS: Acetaminophen 500 MG Tablet 1000 MG PO ×3 (06:12→22:26)
[2024-01-12] MEDS: Multivitamin (Healthy Eyes) Capsule 1 CAP PO ×2 (08:54→17:36)
[2024-01-12] MEDS: Senna/Docusate Sodium 1 Tablet 2 TABLET PO ×2 (08:54→22:26)
[2024-01-12] MEDS: Menthol/Lanolin/Calamine/Znox 113 GM Tube 1 APPLIC TOPICAL ×2 (08:55→22:17)
[2024-01-12] MEDS: Lactobacillis Acidophilus 1 CAP PO (08:55)
[2024-01-12] MEDS: Calcium Carbonate 500 MG Tablet PO ×2 (08:55→17:35)
[2024-01-12] MEDS: Lidocaine 5% Patch 1 PATCH TOPICAL (08:56)
[2024-01-12] MEDS: Polyethylene Glycol 3350 17 GM PACKET PO (08:57)
[2024-01-12] MEDS: Na Biphos/Potassium Phosphate PACKET 1 PACKET PO ×2 (08:57→22:20)
[2024-01-12] MEDS: Cholecalciferol (VIT D3) 25 MCG TABLET (1,000 UNITS) PO (08:57)
[2024-01-12] MEDS: Lactulose 20 GM/30 ML UDC PO ×2 (08:58→22:14)
[2024-01-12 15:41] VITALS: BP 107/68; PULSE 88; RESP 18; TEMP 36.3; O2SAT 92
--- NOTE | 2024-01-12 16:25 | PN.SURG_ITS ---
Subjective Subjective Saw Mr. Pereyra resting comfortably in bed this afternoon. He reports he feels that his baseline today. He denies any new or worsening shortness of breath, chest pain, lower extremity pain or swelling. He is now on prophylactic Lovenox. He reports he has not had any hemoptysis or hematemesis in over 24 hours. Still brown/dark-colored urine, urine culture pending. Objective Data Objective Data Vital Signs: Vital Signs Temp Pulse Resp BP Pulse Ox O2 Del Method 97.3 F L 88 18 107/68 92 Room Air 01/12/24 15:41 01/12/24 15:41 01/12/24 15:41 01/12/24 15:41 01/12/24 15:41 01/12/24 15:41 Oxygen Delivery Method Room Air Weight: 165 lb 1.6 oz Body Mass Index (BMI) 23.6 Intake & Output: Intake and Output for Last 24 Hours 01/10/24 01/11/24 01/12/24 23:59 23:59 23:59 Intake Total 90 / 90 520 / 520 120 / 120 Output Total 300 / 300 550 / 550 250 / 250 Balance -210 / -210 -30 / -30 -130 / -130 Medical Nutrition Assessment Dietitian: Malnutrition Criteria Met Start: 01/03/24 15:23 Freq: Status: Active Protocol: Document 01/12/24 14:49 SLA (Rec: 01/12/24 14:49 SLA [id number]) Nutrition Malnutrition Evidence of Malnutrition Exists Yes Malnutrition (severe): Acute Illness/Injury Evidenced By Suboptimal Energy Intake ( Severe),Weight Loss (Severe) Intake Problem Inadequate Oral Intake Status Inactive Problem Clinical Problem Acute Disease or Injury Related Malnutrition Etiology related to mouth pain when eating and on modified consistency diet - decreased energy intake Signs/Symptoms as evidenced by 7.9% unplanned wt loss and po intake meeting <75% of est nutritional needs x 2 wk Status Active Problem Recommendation Dietitian Recommendations/Changes Continue regular diet per HOSPICE VOLUNTEER consistency/texture recommendations. Continue 120ml ensure plus high protein 4x daily with medpass Change to CIB shake to 4 oz tid w/ meals Continue appetite stimulant Rec consider short term nutrition supplementation to help prevent further decline in nutrition status and if in accordance w/ res/family wishes. Lab / Micro Data 01/11/24 06:35 01/11/24 06:35 Micro: Microbiology 01/10/24 18:50 Urine Catheter - Catheter Urine Culture - Preliminary Culture exhibits no growth. 01/01/24 19:05 Sputum, Expectorated/Coughed Gram Stain - Final 01/01/24 19:05 Sputum, Expectorated/Coughed Respiratory Culture - Final 12/29/23 15:30 Urine Catheter - Catheter Urine Culture - Final Culture exhibits no growth. Physical Exam Const alert, oriented x3 and no apparent distress General Appearance: cooperative HEENT head/scalp atraumatic and external nose normal Eyes General Eye: normal appearance of both eyes Neck Neck Narrative: Neck collar in place Resp normal respiratory effort and no retractions Effort and Inspection: able to speak in complete sentences Cardio Rate: regular rate Rhythm: regular rhythm Extremity Extremity Narrative: Right PT pulse palpable, right DP pulse diminished to palpation but with triphasic Doppler signal Left DP and PT pulses palpable No significant lower extremity edema No calf tenderness to palpation. Skin no rashes or lesions noted Neuro CN's II-XII intact bilaterally Speech: speech normal Psych mental status grossly normal Appearance: grossly normal Assessment & Plan Assessment/Plan (1) Pulmonary embolism: PLAN: Patient continues to wish to remain here for IVC filter placement Monday instead of transfer to outside facility for more urgent placement, he continues to express understanding of these risks. He is fortunately tolerating at least prophylactic anticoagulation to this point. He is scheduled for IVC filter insertion in the Assistant Professor Of Life Sciences on 01/15/2024 at 0830. He will need to be n.p.o. at midnight on 01/15/2024. We discussed IVC filter insertion procedure details including risks, benefits, and expected recovery. All of his questions were addressed to his satisfaction and as noted he does wish to proceed. Charges/Coding Visit Charges Inpatient E&M: 38352 [facility] Subs L1
[2024-01-12 22:13] VITALS: BP 103/97; PULSE 73
[2024-01-12] MEDS: Atorvastatin Calcium 10 MG Tablet 5 MG PO (22:25)
[2024-01-12] MEDS: Mirtazapine 15 MG Tablet 7.5 MG PO (22:27)
[2024-01-13] MEDS: traMADol 50 MG Tablet PO ×2 (02:19→10:28)
[2024-01-13] MEDS: Acetaminophen 500 MG Tablet 1000 MG PO ×3 (05:18→20:02)
[2024-01-13] MEDS: Ensure Plus High Protein 120 ML LIQUID PO ×4 (05:18→19:51)
[2024-01-13] MEDS: Enoxaparin 40 MG/0.4 ML Syringe SC (05:18)
[2024-01-13] MEDS: Propafenone 150 MG Tablet 225 MG PO ×3 (05:19→20:03)
[2024-01-13] MEDS: NYSTATIN 500,000 UNIT/5 ML UDC 500000 UNIT PO ×3 (05:19→19:00)
[2024-01-13] MEDS: 0.9% Saline Lock 10 ML Syringe IV ×2 (05:28→10:29)
[2024-01-13 10:27] VITALS: BP 105/73; PULSE 77; RESP 18; TEMP 36.3; O2SAT 93
[2024-01-13] MEDS: Multivitamin (Healthy Eyes) Capsule 1 CAP PO ×2 (10:29→18:58)
[2024-01-13] MEDS: Lactobacillis Acidophilus 1 CAP PO (10:30)
[2024-01-13] MEDS: Menthol/Lanolin/Calamine/Znox 113 GM Tube 1 APPLIC TOPICAL ×2 (10:30→20:03)
[2024-01-13] MEDS: Senna/Docusate Sodium 1 Tablet 2 TABLET PO ×2 (10:31→20:02)
[2024-01-13] MEDS: Na Biphos/Potassium Phosphate PACKET 1 PACKET PO (10:31)
[2024-01-13] MEDS: Lactulose 20 GM/30 ML UDC PO ×2 (10:31→20:01)
[2024-01-13] MEDS: Polyethylene Glycol 3350 17 GM PACKET PO (10:31)
[2024-01-13] MEDS: Lidocaine 5% Patch 1 PATCH TOPICAL (10:32)
[2024-01-13] MEDS: Cholecalciferol (VIT D3) 25 MCG TABLET (1,000 UNITS) PO (10:32)
[2024-01-13 13:02] VITALS: BP 113/75; PULSE 73
[2024-01-13] MEDS: Calcium Carbonate 500 MG Tablet PO (18:59)
[2024-01-13 19:45] VITALS: PULSE 65; RESP 16
[2024-01-13] MEDS: Mirtazapine 15 MG Tablet 7.5 MG PO (20:02)
[2024-01-13] MEDS: Atorvastatin Calcium 10 MG Tablet 5 MG PO (20:02)
[2024-01-14] MEDS: traMADol 50 MG Tablet PO ×3 (03:03→22:19)
[2024-01-14] MEDS: Ensure Plus High Protein 120 ML LIQUID PO ×4 (05:16→22:19)
[2024-01-14] MEDS: Propafenone 150 MG Tablet 225 MG PO ×3 (05:18→22:20)
[2024-01-14] MEDS: Enoxaparin 40 MG/0.4 ML Syringe SC (05:18)
[2024-01-14] MEDS: Acetaminophen 500 MG Tablet 1000 MG PO ×3 (05:19→22:22)
[2024-01-14 05:25] VITALS: PULSE 61
[2024-01-14] MEDS: Alendronate Sodium 70 MG Tablet PO (06:41)
[2024-01-14 10:16] VITALS: BP 104/70; PULSE 74; RESP 17; TEMP 36.3; O2SAT 93
[2024-01-14] MEDS: Calcium Carbonate 500 MG Tablet PO (10:18)
[2024-01-14] MEDS: Multivitamin (Healthy Eyes) Capsule 1 CAP PO ×2 (10:18→16:42)
[2024-01-14] MEDS: Na Biphos/Potassium Phosphate PACKET 1 PACKET PO ×2 (10:19→22:20)
[2024-01-14] MEDS: Senna/Docusate Sodium 1 Tablet 2 TABLET PO (10:19)
[2024-01-14] MEDS: Lactobacillis Acidophilus 1 CAP PO (10:19)
[2024-01-14] MEDS: Polyethylene Glycol 3350 17 GM PACKET PO (10:19)
[2024-01-14] MEDS: Lactulose 20 GM/30 ML UDC PO ×2 (10:19→22:20)
[2024-01-14] MEDS: Menthol/Lanolin/Calamine/Znox 113 GM Tube 1 APPLIC TOPICAL ×2 (10:19→22:21)
[2024-01-14] MEDS: Lidocaine 5% Patch 1 PATCH TOPICAL (10:19)
[2024-01-14] MEDS: Cholecalciferol (VIT D3) 25 MCG TABLET (1,000 UNITS) PO (10:20)
[2024-01-14 13:25] VITALS: BP 112/75; PULSE 82
[2024-01-14] MEDS: NYSTATIN 500,000 UNIT/5 ML UDC 500000 UNIT PO (13:27)
[2024-01-14] MEDS: Mirtazapine 15 MG Tablet 7.5 MG PO (22:19)
[2024-01-14] MEDS: Atorvastatin Calcium 10 MG Tablet 5 MG PO (22:20)
[2024-01-15] MEDS: Enoxaparin 40 MG/0.4 ML Syringe SC (05:42)
--- NOTE | 2024-01-15 11:07 | CASEMGMT ---
Addendum entered by Eulalia Marin 01/15/24 15:40: Dtr filed an appeal at 1200. SW phoned [facility] at 1535 inquiring about medical records request. Updated fax number and received request. SW sent request to HIM to process. -- [facility] Aguirre is reviewing clinicals and determining if there will be a bed for the pt. SW will continue to follow. Original Note: Social Work Insurance issued LCD 01/16, DC 01/17 SW phoned [facility] to confirm acceptance, however, d/t to the holiday, there are no admissions workers. SW left a VM with Evelyn, requesting a call back to confirm acceptance on 01/17. SW phoned dtr, as pt was off unit currently for procedures. SW explained to [facility], appeal rights and confirmed DC plans. Dtr would like to appeal, as pt is voicing making progress and having increased motivation. Dtr to notify this worker once appeal is filed. SW updated dtr on [facility]. Dtr requested this worker follow up with George Aguirre if a bed is available now for pt. SW agreed. Dtr appreciative. ELI inquired to George Aguirre via [employer]. There is a bed and requested updated clinicals. SW sent via [employer]. [facility] started. Cot transport will need scheduled. Will continue to follow. Plan: DC 01/17, pending appeal, to [facility] vs George Marin, VINI SADDLE AND SIDE WIRE STITCHER
[2024-01-15] MEDS: Ensure Plus High Protein 120 ML LIQUID PO ×2 (11:51→17:32)
[2024-01-15] MEDS: traMADol 50 MG Tablet PO ×2 (12:27→20:03)
[2024-01-15] MEDS: Acetaminophen 500 MG Tablet 1000 MG PO ×2 (12:27→20:05)
[2024-01-15] MEDS: Propafenone 150 MG Tablet 225 MG PO ×2 (12:27→20:04)
--- NOTE | 2024-01-15 15:08 | NURSING ---
Patient came back from Cathlab, Noticeably nauseated and dry heaving. Note left for MD, Patient would like nausea medications.
[2024-01-15 15:14] VITALS: BP 108/62; PULSE 80; RESP 17; TEMP 36.3; O2SAT 94
[2024-01-15] MEDS: Calcium Carbonate 500 MG Tablet PO (17:32)
[2024-01-15] MEDS: Multivitamin (Healthy Eyes) Capsule 1 CAP PO (17:32)
--- NOTE | 2024-01-15 19:00 | PN.TCU_ITS ---
Subjective Subjective Resident seen, examined for regulatory visit. He has some nausea, pain after IVC filter placement today. He is not always compliant with C Collar. Recently, resident has had nosebleeds, hemoptysis, and hematuria. 01/10/2024 CTA chest showed pulmonary embolism. 01/11/2024 Doppler ultrasound showed LLE DVT. Not a good candidate for anticoagulation. 01/15/2024 Dr. Roldan inserted IVC filter today. Objective Data Objective Data Vital Signs: Vital Signs Temp Pulse Resp BP Pulse Ox O2 Del Method 97.4 F L 80 17 108/62 94 Room Air 01/15/24 15:14 01/15/24 15:14 01/15/24 15:14 01/15/24 15:14 01/15/24 15:14 01/15/24 15:14 Oxygen Delivery Method Room Air Weight: 74.888 kg Body Mass Index (BMI) 23.6 Intake & Output: Intake and Output for Last 24 Hours 01/13/24 01/14/24 01/15/24 23:59 23:59 23:59 Intake Total 290 / 290 360 / 360 Output Total 125 / 125 875 / 875 1000 / 1000 Balance 165 / 165 -515 / -515 -1000 / -1000 Medical Nutrition Assessment Dietitian: Malnutrition Criteria Met Start: 01/03/24 15:23 Freq: Status: Active Protocol: Document 01/12/24 14:49 SLA (Rec: 01/12/24 14:49 SLA [email or web address]) Nutrition Malnutrition Evidence of Malnutrition Exists Yes Malnutrition (severe): Acute Illness/Injury Evidenced By Suboptimal Energy Intake ( Severe),Weight Loss (Severe) Intake Problem Inadequate Oral Intake Status Inactive Problem Clinical Problem Acute Disease or Injury Related Malnutrition Etiology related to mouth pain when eating and on modified consistency diet - decreased energy intake Signs/Symptoms as evidenced by 7.9% unplanned wt loss and po intake meeting <75% of est nutritional needs x 2 wk Status Active Problem Recommendation Dietitian Recommendations/Changes Continue regular diet per CLINICAL LEADER consistency/texture recommendations. Continue 120ml ensure plus high protein 4x daily with medpass Change to CIB shake to 4 oz tid w/ meals Continue appetite stimulant Rec consider short term nutrition supplementation to help prevent further decline in nutrition status and if in accordance w/ res/family wishes. Lab / Micro Data 01/11/24 06:35 01/11/24 06:35 Micro: Microbiology 01/13/24 18:15 Stool Stool Occult Blood (FAYE) - Final 01/10/24 18:50 Urine Catheter - Catheter Urine Culture - Final Culture exhibits no growth. 01/01/24 19:05 Sputum, Expectorated/Coughed Gram Stain - Final 01/01/24 19:05 Sputum, Expectorated/Coughed Respiratory Culture - Final 12/29/23 15:30 Urine Catheter - Catheter Urine Culture - Final Culture exhibits no growth. Physical Exam Const alert, oriented x3 and no apparent distress General Appearance: cooperative HEENT head/scalp atraumatic and external nose normal Eyes PERRL and EOMs intact bilaterally General Eye: normal appearance of both eyes Neck supple, no JVD and no carotid bruits Neck Narrative: Neck collar in place Resp normal respiratory effort and no retractions Effort and Inspection: able to speak in complete sentences Cardio regular rate and regular rhythm Rate: regular rate Rhythm: regular rhythm GI normal to inspection, nondistended, normoactive bowel sounds, non-tender and non-distended Extremity normal capillary refill Extremity Narrative: Right PT pulse palpable, right DP pulse diminished to palpation but with triphasic Doppler signal Left DP and PT pulses palpable No significant lower extremity edema No calf tenderness to palpation. General Extremity: Negative for edema Skin no rashes or lesions noted General Skin Exam: no breakdown Neuro CN's II-XII intact bilaterally Speech: speech normal Psych mental status grossly normal Appearance: grossly normal Assessment & Plan Assessment/Plan (1) Debility: (2) Ileus: (3) Fecal impaction in rectum: (4) Colitis: (5) Urinary tract infection: (6) C2 cervical fracture: (7) Odontoid fracture: (8) Sternal fracture: (9) Urinary retention: (10) Osteoporosis: (11) Hyperlipidemia: (12) Atrial fibrillation: (13) Macular degeneration: (14) BPH (benign prostatic hyperplasia): PLAN: Plan 88 year old male with below past medical history hospitalized for ileus 2/2 fecal impaction of colon, complicated by colitis, urinary tract infection, admitted to TCU with debility, here for rehabilitation, strengthening, prior to discharge home alone. * Debility - PT/OT. * Dysphagia - ST. * Pain - Tylenol 1000mg q8, Tramadol 50mg q6 prn pain (1-5), Oxycodone 5mg q4 prn pain (6-10), Lidoderm 1 patch td daily. * Bowel - Miralax 17gm daily, senna/colace 2 tablets twice daily, Lactulose 20gm bid, Magnesium Citrate 300mL po daily prn. * Adult immunization - Administer pneumonia vaccine, covid vaccine, flu vaccine as appropriate. * DVT prophylaxis - Held due to bleeding. * C2 fracture - C collar. * Osteoporosis - Alendronate 70mg qweek. * Hyperlipidemia - Atorvastatin 5mg qhs. * Calcium deficiency - TUMS 500mg bidcm. * Vitamin D deficiency - D3 25mcg daily. * Nutrition - Ensure Plus 120mL 4x/day. * GI prophylaxis - Lactobacillus 1 capsule daily. * Skin irritation - Calmoseptine topical bid. * Macular degeneration - Healthy Eyes 1 capsule bidcm. * Hypophosphatemia - K-Phos 1 packet bid. * Coronary artery disease - Rhythmol 225mg tid, NTG 0.4mg sl q5m prn. * Atrial fibrillation - Rhythmol 225mg tid, Warfarin stopped due to bleeding. * Nutrition - Ensure Plus 120mL 4x/day. * Appetite loss - Mirtazapine 7.5mg qhs. * Nausea - Zofran odt 8mg q8 prn. * Dry nose - [place] 2 sprays q1 prn.
[2024-01-15] MEDS: Ondansetron ODT 4 MG Tablet 8 MG PO (20:02)
[2024-01-15] MEDS: Na Biphos/Potassium Phosphate PACKET 1 PACKET PO (20:03)
[2024-01-15] MEDS: Atorvastatin Calcium 10 MG Tablet 5 MG PO (20:03)
[2024-01-15] MEDS: Lactulose 20 GM/30 ML UDC PO (20:03)
[2024-01-15] MEDS: Mirtazapine 15 MG Tablet 7.5 MG PO (20:04)
[2024-01-16] MEDS: traMADol 50 MG Tablet PO ×3 (02:59→20:32)
[2024-01-16] MEDS: Acetaminophen 500 MG Tablet 1000 MG PO ×3 (04:37→20:38)
[2024-01-16] MEDS: Ensure Plus High Protein 120 ML LIQUID PO ×4 (04:37→20:32)
[2024-01-16] MEDS: Propafenone 150 MG Tablet 225 MG PO ×3 (04:38→20:47)
--- NOTE | 2024-01-16 08:55 | PCM.PN.SRG ---
Subjective Subjective Saw Mr. Pereyra this morning resting comfortably in bed. He denies any pain at the right groin access site, he reports really no pain at all other than his usual neck pain. He was pleasantly surprised by how well he feels he is recovering from this procedure. Objective Data Objective Data Vital Signs: Vital Signs Temp Pulse Resp BP Pulse Ox O2 Del Method 97.4 F L 80 17 108/62 94 Room Air 01/15/24 15:14 01/15/24 15:14 01/15/24 15:14 01/15/24 15:14 01/15/24 15:14 01/15/24 15:14 Oxygen Delivery Method Room Air Weight: 165 lb 1.6 oz Body Mass Index (BMI) 23.6 Intake & Output: Intake and Output for Last 24 Hours 01/14/24 01/15/24 01/16/24 23:59 23:59 23:59 Intake Total 360 / 360 60 / 60 Output Total 875 / 875 1000 / 1000 200 / 200 Balance -515 / -515 -940 / -940 -200 / -200 Medical Nutrition Assessment Dietitian: Malnutrition Criteria Met Start: 01/03/24 15:23 Freq: Status: Active Protocol: Document 01/12/24 14:49 SLA (Rec: 01/12/24 14:49 SLA [email or web address]) Nutrition Malnutrition Evidence of Malnutrition Exists Yes Malnutrition (severe): Acute Illness/Injury Evidenced By Suboptimal Energy Intake ( Severe),Weight Loss (Severe) Intake Problem Inadequate Oral Intake Status Inactive Problem Clinical Problem Acute Disease or Injury Related Malnutrition Etiology related to mouth pain when eating and on modified consistency diet - decreased energy intake Signs/Symptoms as evidenced by 7.9% unplanned wt loss and po intake meeting <75% of est nutritional needs x 2 wk Status Active Problem Recommendation Dietitian Recommendations/Changes Continue regular diet per ASSOCIATE DIRECTOR OF SALES consistency/texture recommendations. Continue 120ml ensure plus high protein 4x daily with medpass Change to CIB shake to 4 oz tid w/ meals Continue appetite stimulant Rec consider short term nutrition supplementation to help prevent further decline in nutrition status and if in accordance w/ res/family wishes. Lab / Micro Data 01/11/24 06:35 01/11/24 06:35 Micro: Microbiology 01/13/24 18:15 Stool Stool Occult Blood (FAYE) - Final 01/10/24 18:50 Urine Catheter - Catheter Urine Culture - Final Culture exhibits no growth. 01/01/24 19:05 Sputum, Expectorated/Coughed Gram Stain - Final 01/01/24 19:05 Sputum, Expectorated/Coughed Respiratory Culture - Final 12/29/23 15:30 Urine Catheter - Catheter Urine Culture - Final Culture exhibits no growth. Physical Exam Const alert, oriented x3 and no apparent distress General Appearance: cooperative HEENT head/scalp atraumatic and external nose normal Eyes General Eye: normal appearance of both eyes Neck Neck Narrative: Neck collar in place Resp normal respiratory effort and no retractions Effort and Inspection: able to speak in complete sentences Cardio Rate: regular rate Rhythm: regular rhythm Extremity Extremity Narrative: Right groin with dry pressure dressing in place, no bleedthrough, no significant ecchymosis or evidence of hematoma, soft and nontender to palpation. Right PT pulse palpable, right DP pulse diminished to palpation but with triphasic Doppler signal Left DP and PT pulses palpable No significant lower extremity edema No calf tenderness to palpation. Skin no rashes or lesions noted Neuro CN's II-XII intact bilaterally Speech: speech normal Psych mental status grossly normal Appearance: grossly normal Assessment & Plan Assessment/Plan (1) Pulmonary embolism: PLAN: He is status post IVC filter insertion on 01/15/2024. The procedure was without complication and he tolerated it well. Right groin access site is without any evidence of hematoma or other complication today. And dry dressing at the right groin should remain in place for another 24 hours then okay to remove and leave open to air. From a vascular surgical standpoint, his only restrictions are no lifting greater than 20 pounds for 2 weeks and no submerging the access site for 2 weeks. Otherwise okay for activity as tolerated and as per his previous restrictions. Will plan for outpatient follow-up in the office in 4 to 6 weeks, sooner as needed if new concerns arise.
[2024-01-16] MEDS: Lidocaine 5% Patch 1 PATCH TOPICAL (09:20)
[2024-01-16] MEDS: Cholecalciferol (VIT D3) 25 MCG TABLET (1,000 UNITS) PO (09:21)
[2024-01-16] MEDS: Na Biphos/Potassium Phosphate PACKET 1 PACKET PO (09:21)
[2024-01-16] MEDS: Multivitamin (Healthy Eyes) Capsule 1 CAP PO ×2 (09:21→16:42)
[2024-01-16] MEDS: Lactobacillis Acidophilus 1 CAP PO (09:21)
[2024-01-16] MEDS: Senna/Docusate Sodium 1 Tablet 2 TABLET PO ×2 (09:21→20:47)
[2024-01-16] MEDS: Polyethylene Glycol 3350 17 GM PACKET PO (09:21)
[2024-01-16] MEDS: Lactulose 20 GM/30 ML UDC PO (09:21)
[2024-01-16 10:45] VITALS: BMI 23.0
--- NOTE | 2024-01-16 13:11 | CASEMGMT ---
Social Work [facility] does not have beds available. ELI left another VM with Evelyn at [facility] to confirm admission on 01/17, if appeal is lost. SW updated dtr and pt. BIMS () and PHQ-2 () completed for MDS assessment. Eulalia Marin, [employer]IP[employer] PREPARATION ROOM MANAGER
[2024-01-16 15:08] VITALS: BP 95/65; PULSE 91; RESP 16; TEMP 36.1; O2SAT 94
--- NOTE | 2024-01-16 15:45 | WOUNDNOTE ---
wound photo: sacrum
[2024-01-16] MEDS: Calcium Carbonate 500 MG Tablet PO (16:42)
--- NOTE | 2024-01-16 19:24 | DS.PCM_ITS ---
Providers Date of Admission: 12/20/23 Primary Care Physician: Dr. Rayo Lanza, DO Consultations 12/22/23 13:40 Consult: Vascular Surgery Routine Consulting Provider: Coretta Gomez Reason for Consult: Right femoral av fistula. EMERGENT Consult: No MD Notified: No Date Notified: 12/22/23 Time Notified: 13:40 01/10/24 16:17 Consult: Vascular Surgery Routine Consulting Provider: Coretta Gomez Reason for Consult: IVC filter placement d/t current PE EMERGENT Consult: No MD Notified: Yes Date Notified: 01/10/24 Time Notified: 16:20 Method of Notification: Verbal 01/12/24 06:20 Consult: Onc/Wound/dairy cattle farmer Routine Comment: Reason for Consult:: coccyx/buttock open area Reason For Visit: CONSTIPATION, RECTAL DISTENSION Diagnosis Discharge Diagnosis (1) Pulmonary embolism: Status: Acute Code(s): I26.99 - Other pulmonary embolism without acute cor pulmonale Plan 88 year old male with below past medical history hospitalized for ileus 2/2 fecal impaction of colon, complicated by colitis, urinary tract infection, admitted to TCU with debility, here for rehabilitation, strengthening, prior to discharge home alone. * Debility - PT/OT. * Dysphagia - ST. * Pain - Tylenol 1000mg q8, Tramadol 50mg q6 prn pain (1-5), Oxycodone 5mg q4 prn pain (6-10), Lidoderm 1 patch td daily. * Bowel - Miralax 17gm daily, senna/colace 2 tablets twice daily, Lactulose 20gm bid, Magnesium Citrate 300mL po daily prn. * Adult immunization - Administer pneumonia vaccine, covid vaccine, flu vaccine as appropriate. * DVT prophylaxis - Held due to bleeding. * C2 fracture - C collar. * Osteoporosis - Alendronate 70mg qweek. * Hyperlipidemia - Atorvastatin 5mg qhs. * Calcium deficiency - TUMS 500mg bidcm. * Vitamin D deficiency - D3 25mcg daily. * Nutrition - Ensure Plus 120mL 4x/day. * GI prophylaxis - Lactobacillus 1 capsule daily. * Skin irritation - Calmoseptine topical bid. * Macular degeneration - Healthy Eyes 1 capsule bidcm. * Hypophosphatemia - K-Phos 1 packet bid. * Coronary artery disease - Rhythmol 225mg tid, NTG 0.4mg sl q5m prn. * Atrial fibrillation - Rhythmol 225mg tid, Warfarin stopped due to bleeding. * Nutrition - Ensure Plus 120mL 4x/day. * Appetite loss - Mirtazapine 7.5mg qhs. * Nausea - Zofran odt 8mg q8 prn. * Dry nose - [place] [facility] 2 sprays q1 prn. Medications at Discharge Home Medications Lactobacillus acidophilus (Acidophilus capsule) 10 mg PO DAILY supplement 12/12/23 alendronate 70 mg tablet 70 mg PO QWEEK bone health 12/12/23 calcium citrate 500 mg PO BID supplement 12/12/23 cholecalciferol (vitamin D3) 25 mcg (1,000 unit) capsule 25 mcg PO DAILY supplement 12/12/23 propafenone 225 mg tablet 225 mg PO TID AFIB 12/12/23 vit C 250 mg-vit E 200 unit-zinc ox 12.5 ni-vtqayn-twnaid-zeax capsule 2 cap PO BID supplement 12/12/23 food supplemt, lactose-reduced 0.08 gram-1.5 kcal/mL oral liquid (Ensure Plus High Protein) 120 ml PO 4X/DAY supplement #0 mL 12/20/23 menthol 0.44 %-zinc oxide 20.6 % topical ointment (Calmoseptine) 1 applic topical BID skin protectant #0 grams 12/20/23 nitroglycerin 0.4 mg sublingual tablet 0.4 mg sublingual Q5M PRN Cardiac/Chest Pain #0 tabs 12/20/23 polyethylene glycol 3350 17 gram/dose oral powder 17 g PO DAILY bowels #119 grams 12/20/23 potassium, sodium phosphates 280 mg-160 mg-250 mg oral powder packet 1 packet PO BID supplement #0 ea 12/20/23 acetaminophen 500 mg tablet 1,000 mg (2 x 500 mg) PO Q8 #0 tabs 01/16/24 atorvastatin 10 mg tablet 5 mg (1/2 x 10 mg) PO QHS #0 tabs 01/16/24 lactulose 20 gram/30 mL oral solution 20 g (30 mL) PO BID #0 mL 01/16/24 lidocaine 5 % topical patch 1 patch topical DAILY #0 ea 01/16/24 magnesium citrate 300 ml PO DAILY PRN Constipation #0 mL 01/16/24 mirtazapine 15 mg tablet 7.5 mg (1/2 x 15 mg) PO QHS #0 tabs 01/16/24 ondansetron 4 mg disintegrating tablet 8 mg (2 x 4 mg) PO Q8H PRN PRN Nausea/Vomiting #0 tabs 01/16/24 sennosides 8.6 mg-docusate sodium 50 mg tablet (Stimulant Laxative Plus) 2 tab PO BID #0 tabs 01/16/24 sodium chloride 0.65 % nasal spray aerosol (Deep Sea Nasal) 2 spray NASAL Q1H PRN NASAL DRYNESS #0 mL 01/16/24 tramadol 50 mg tablet 50 mg PO Q6H PRN PRN Pain Score 1-5 Or Pre Pt/Ot 3 days #12 tabs 01/16/24 Hospital Course Operations None Procedures IVC filter placement Summary of Care Provided Minutes Spent on Discharge: 35 Hospital Course: 88 year old male with below past medical history hospitalized for C2 fracture, odontoid fracture, sternal fracture, treated non-surgically with [place] J Collar, complicated by right upper extremity weakness, urinary retention requiring ghosh, admitted to TCU with debility, here for rehabilitation, strengthening, prior to discharge home alone. 88 year old male with below past medical history hospitalized for ileus 2/2 fecal impaction of colon, complicated by colitis, urinary tract infection, admitted to TCU with debility, here for rehabilitation, strengthening, prior to discharge home alone. Recently, resident has had nosebleeds, hemoptysis, and hematuria. 01/10/2024 CTA chest showed pulmonary embolism. 01/11/2024 Doppler ultrasound showed LLE DVT. Not a good candidate for anticoagulation. 01/15/2024 Dr. Roldan inserted IVC filter today. Discharge 01/18/2024, pending appeal to [facility], intermediate, part B therapies. Physical Exam Const alert General Appearance: cooperative HEENT normocephalic HEENT Narrative: C collar in place. Eyes PERRL and EOMs intact bilaterally Neck supple, no JVD and no carotid bruits Resp normal respiratory effort, normal air movement and clear to auscultation bilaterally Cardio regular rate and regular rhythm GI normal to inspection, nondistended, normoactive bowel sounds, non-tender and non-distended Bladder / Kidney Exam: catheter in place urethral Extremity normal capillary refill General Extremity: Negative for edema Skin no rashes or lesions noted General Skin Exam: no breakdown Psych affect normal Appearance: appropriate Medical Records Data Medical Nutrition Assessment Dietitian: Malnutrition Criteria Met Start: 01/03/24 15:23 Freq: Status: Active Protocol: Document 01/12/24 14:49 SLA (Rec: 01/12/24 14:49 SLA [email or web address]) Nutrition Malnutrition Evidence of Malnutrition Exists Yes Malnutrition (severe): Acute Illness/Injury Evidenced By Suboptimal Energy Intake ( Severe),Weight Loss (Severe) Intake Problem Inadequate Oral Intake Status Inactive Problem Clinical Problem Acute Disease or Injury Related Malnutrition Etiology related to mouth pain when eating and on modified consistency diet - decreased energy intake Signs/Symptoms as evidenced by 7.9% unplanned wt loss and po intake meeting <75% of est nutritional needs x 2 wk Status Active Problem Recommendation Dietitian Recommendations/Changes Continue regular diet per SOFTWARE DEVELOPMENT MANAGER consistency/texture recommendations. Continue 120ml ensure plus high protein 4x daily with medpass Change to CIB shake to 4 oz tid w/ meals Continue appetite stimulant Rec consider short term nutrition supplementation to help prevent further decline in nutrition status and if in accordance w/ res/family wishes. Weight / BMI Weight Weight: 72.802 kg Body Mass Index (BMI) 23.0 ABG / Lab / Microbiology Data 01/11/24 06:35 01/11/24 06:35 Microbiology: Microbiology 01/13/24 18:15 Stool Stool Occult Blood (FAYE) - Final 01/10/24 18:50 Urine Catheter - Catheter Urine Culture - Final Culture exhibits no growth. 01/01/24 19:05 Sputum, Expectorated/Coughed Gram Stain - Final 01/01/24 19:05 Sputum, Expectorated/Coughed Respiratory Culture - Final 12/29/23 15:30 Urine Catheter - Catheter Urine Culture - Final Culture exhibits no growth. D/C Instructions Discharge Diet: No restrictions Discharge Activity: Return to Normal Activity, May Shower and Use Walker Weight Bearing Status: Weight bearing as tolerated Call your doctor if you observe: Fever of 101 or Higher, Inability to urinate, Inability to have a bowel movement, Shortness of breath, Dizziness, Fainting spells, Swelling in the ankles, Chest pain and Uncontrolled pain Additional Instructions: Discharge 01/18/2024, pending appeal to [facility], intermediate, part B therapies. Please Follow Up With: Francisco Coles MD When: As scheduled. Meaningful Use Info Meaningful Use Meaningful Use Diagnoses (Choose all that apply): None applicable Ischemic Stroke Statin Dosing Therapy Reference: STATIN DOSE THERAPY REFERENCE: * Patients > 75 years receive moderate or high dose statin therapy. * Patients 75 years or YOUNGER should receive HIGH intensity statin dose unless contraindicated. You will be required to document reason for non-treatment if statin daily dose does not meet guidelines. HIGH DOSE STATIN THERAPY DAILY Atorvastatin > than or = to 40 mg Rosuvastatin > than or = to 20 mg Amlodipine + Atorvastatin > than or = to 2.5/40 mg Ezetimibe + Simvastatin 10/80 mg Simvastatin 80mg Discharge Plan Admission Admit Date/Time: 12/20/23 10:29 Primary Reason for Your Visit: Debility. Attending Provider: Nikolai Ceballos Chi Primary Care Provider: Rayo Lanza Consulting Providers: Coretta Gomez Instructions Additional Instructions / Restrictions: Discharge 01/18/2024, pending appeal to [facility], intermediate, part B therapies. Discharge Orders/Prescriptions Prescriptions: New atorvastatin 10 mg Tablet 5 mg PO QHS Qty: 0 0RF sennosides-docusate sodium [Stimulant Laxative Plus] 8.6-50 mg Tablet 2 tab PO BID Qty: 0 0RF tramadol 50 mg Tablet 50 mg PO Q6H PRN PRN (Reason: Pain Score 1-5 Or Pre Pt/Ot) 3 Days Qty: 12 0RF acetaminophen 500 mg Tablet 1,000 mg PO Q8 Qty: 0 0RF lidocaine 5 % Adhesive Patch,Medicated 1 patch topical DAILY Qty: 0 0RF Protocol: *Topical Application Instructions APPLICATION INSTRUCTIONS: Posterior thoracic spine without removing c collar. magnesium citrate Solution 300 ml PO DAILY PRN (Reason: Constipation) Qty: 0 0RF mirtazapine 15 mg Tablet 7.5 mg PO QHS Qty: 0 0RF ondansetron 4 mg Tablet,Disintegrating 8 mg PO Q8H PRN PRN (Reason: Nausea/Vomiting) Qty: 0 0RF [place] Nasal 0.65 % Aerosol,[place] 2 spray NASAL Q1H PRN (Reason: NASAL DRYNESS) Qty: 0 0RF lactulose 20 gram/30 mL Solution 20 g PO BID Qty: 0 0RF Continued alendronate 70 mg tablet 70 mg PO QWEEK calcium citrate 250 mg calcium tablet 500 mg PO BID cholecalciferol (vitamin D3) 25 mcg (1,000 unit) capsule 25 mcg PO DAILY Acidophilus Capsule 10 mg PO DAILY vit C-E-zinc dq-dnkj-fah-zeax 250 mg-200 unit -12.5 mg-1 mg capsule 2 cap PO BID propafenone 225 mg tablet 225 mg PO TID nitroglycerin 0.4 mg Tablet, Sublingual 0.4 mg sublingual Q5M PRN (Reason: Cardiac/Chest Pain) Qty: 0 0RF potassium, sodium phosphates 280-160-250 mg Powder In Packet 1 packet PO BID Qty: 0 0RF menthol-zinc oxide [Calmoseptine] 0.44-20.6 % Ointment 1 applic topical BID Qty: 0 0RF Protocol: *Topical Application Instructions APPLICATION INSTRUCTIONS: apply to buttocks Ensure Plus High Protein 0.08 gram-1.5 kcal/mL Liquid 120 ml PO 4X/DAY Qty: 0 0RF polyethylene glycol 3350 17 gram/dose powder 17 g PO DAILY Qty: 119 0RF Discontinued dexamethasone 2 mg tablet 4 mg PO TID dexamethasone 2 mg tablet 4 mg PO BID dexamethasone 2 mg tablet 2 mg PO BID dexamethasone 2 mg tablet 2 mg PO DAILY dexamethasone 1 mg tablet 0.5 mg PO DAILY oxycodone 5 mg tablet 5 mg PO Q6H PRN (Reason: pain 1-10) warfarin 4 mg tablet 4 mg PO DAILY ascorbic acid (vitamin C) 500 mg capsule 500 mg PO DAILY glucosamine sulfate [Glucosamine] 500 mg tablet 500 mg PO DAILY Rx Instructions: administer with a meal aspirin 81 mg tablet,chewable 1 tab PO DAILY turmeric 400 mg capsule 400 mg PO DAILY vitamin B complex [Vitamins B Complex] Capsule 1 cap PO DAILY multivitamin [Daily Multi-Vitamin] Tablet 1 tab PO DAILY simvastatin 10 mg tablet 5 mg PO QHS vitamin E 100 unit capsule 201 mg PO DAILY nystatin 100,000 unit/mL Suspension 500,000 unit PO 4X/DAY 10 Days Qty: 200 0RF acetaminophen 500 mg Tablet 1,000 mg PO Q8 Qty: 0 0RF tramadol 50 mg Tablet 50 mg PO Q6H PRN PRN (Reason: Pain Score 1-5) 2 Days Qty: 4 0RF metoclopramide HCl [Reglan] 10 mg tablet 10 mg PO Q6H Qty: 20 0RF metronidazole 500 mg tablet 500 mg PO TID Qty: 20 0RF Referrals / Follow Up: Rayo Lanza DO [Primary Care Provider] - Disposition Disposition (needs filled in before D/C Order can be placed): NonSkilled NH/Intermed Care
--- NOTE | 2024-01-16 19:34 | TREXTCAR_ITS ---
Diet Diet Order/Speech Therapy: 01/15/24 11:42 Diet: Regular - General Type of Dietary Supplement:: 4 oz CIB SHAKE TID Diet Comments: Distant sup, no tomato soup, no coffee. fortified foods w/ meals as able Routine Orders/Code Status Code Status: DNRCC-A (No intubation.) Wound(s) bilateral jaw: Wound Type: Abrasion Dressing Change: padded left buttocks: Wound Type: shearing Dressing Change: mepilex b/l buttocks: Wound Type: Pressure Injury-Shearing Dressing Change: mepilex coccyx: Wound Type: moisture excoriation- slit Dressing Change: mepilex- 01/13/24 BILATERAL FEMORAL: Wound Type: Surgical Incision left upper buttock/sacrum: Wound Type: Pressure Injury Dressing Change: AntiMicrobial (Aquacel AG, etc) right upper buttock/sacum: Wound Type: Pressure Injury Dressing Change: AntiMicrobial (Aquacel AG, etc) Therapies Weight Bearing: Weight bearing as tolerated Extremity Affected:: Bilateral Lower Physical Therapy: Eval and Treat Occupational Therapy: Eval and Treat Speech Therapy: Eval and Treat Problem/Diagnosis (1) Pulmonary embolism: Status: Acute Code(s): I26.99 - Other pulmonary embolism without acute cor pulmonale Plan 88 year old male with below past medical history hospitalized for ileus 2/2 fecal impaction of colon, complicated by colitis, urinary tract infection, admitted to TCU with debility, here for rehabilitation, strengthening, prior to discharge home alone. * Debility - PT/OT. * Dysphagia - ST. * Pain - Tylenol 1000mg q8, Tramadol 50mg q6 prn pain (1-5), Oxycodone 5mg q4 prn pain (6-10), Lidoderm 1 patch td daily. * Bowel - Miralax 17gm daily, senna/colace 2 tablets twice daily, Lactulose 20gm bid, Magnesium Citrate 300mL po daily prn. * Adult immunization - Administer pneumonia vaccine, covid vaccine, flu vaccine as appropriate. * DVT prophylaxis - Held due to bleeding. * C2 fracture - C collar. * Osteoporosis - Alendronate 70mg qweek. * Hyperlipidemia - Atorvastatin 5mg qhs. * Calcium deficiency - TUMS 500mg bidcm. * Vitamin D deficiency - D3 25mcg daily. * Nutrition - Ensure Plus 120mL 4x/day. * GI prophylaxis - Lactobacillus 1 capsule daily. * Skin irritation - Calmoseptine topical bid. * Macular degeneration - Healthy Eyes 1 capsule bidcm. * Hypophosphatemia - K-Phos 1 packet bid. * Coronary artery disease - Rhythmol 225mg tid, NTG 0.4mg sl q5m prn. * Atrial fibrillation - Rhythmol 225mg tid, Warfarin stopped due to bleeding. * Nutrition - Ensure Plus 120mL 4x/day. * Appetite loss - Mirtazapine 7.5mg qhs. * Nausea - Zofran odt 8mg q8 prn. * Dry nose - Stafford Bristow 2 sprays q1 prn. Allergies/Procedures Done in Hospital Allergies Penicillins Allergy (Mild, Verified 12/15/23 03:27) Rash Procedures: IVC filter placement Type of Care/Length of Stay Estimated LOS: More Than 30 Days Type of Care Needed: Intermediate Rehab Potential: Fair Prognosis: Fair Additional Orders/Day of Discharge Additional Orders: part B therapies Day of Discharge: 01/18/24 Dietary and Speech Recommendations Dietitian Recommendations/Changes: Continue regular diet per SITE INTERPRETER consistency/texture recommendations. Continue 120ml ensure plus high protein 4x daily with medpass Change to CIB shake to 4 oz tid w/ meals Continue appetite stimulant Rec consider short term nutrition supplementation to help prevent further decline in nutrition status and if in accordance w/ res/family wishes. Follow Up Care Please Follow Up With: Francisco Coles MD Discharge Plan Admission Admit Date/Time: 12/20/23 10:29 Primary Reason for Your Visit: Debility. Attending Provider: Nikolai Ceballos Chi Primary Care Provider: Rayo Lanza Consulting Providers: Coretta Gomez Instructions Additional Instructions / Restrictions: Discharge 01/18/2024, pending appeal to [facility], intermediate, part B therapies. Discharge Orders/Prescriptions Prescriptions: New atorvastatin 10 mg Tablet 5 mg PO QHS Qty: 0 0RF sennosides-docusate sodium [Stimulant Laxative Plus] 8.6-50 mg Tablet 2 tab PO BID Qty: 0 0RF tramadol 50 mg Tablet 50 mg PO Q6H PRN PRN (Reason: Pain Score 1-5 Or Pre Pt/Ot) 3 Days Qty: 12 0RF acetaminophen 500 mg Tablet 1,000 mg PO Q8 Qty: 0 0RF lidocaine 5 % Adhesive Patch,Medicated 1 patch topical DAILY Qty: 0 0RF Protocol: *Topical Application Instructions APPLICATION INSTRUCTIONS: Posterior thoracic spine without removing c collar. magnesium citrate Solution 300 ml PO DAILY PRN (Reason: Constipation) Qty: 0 0RF mirtazapine 15 mg Tablet 7.5 mg PO QHS Qty: 0 0RF ondansetron 4 mg Tablet,Disintegrating 8 mg PO Q8H PRN PRN (Reason: Nausea/Vomiting) Qty: 0 0RF Deep Sea Nasal 0.65 % Aerosol,Bristow 2 spray NASAL Q1H PRN (Reason: NASAL DRYNESS) Qty: 0 0RF lactulose 20 gram/30 mL Solution 20 g PO BID Qty: 0 0RF Continued alendronate 70 mg tablet 70 mg PO QWEEK calcium citrate 250 mg calcium tablet 500 mg PO BID cholecalciferol (vitamin D3) 25 mcg (1,000 unit) capsule 25 mcg PO DAILY Acidophilus Capsule 10 mg PO DAILY vit C-E-zinc yd-lstw-byn-zeax 250 mg-200 unit -12.5 mg-1 mg capsule 2 cap PO BID propafenone 225 mg tablet 225 mg PO TID nitroglycerin 0.4 mg Tablet, Sublingual 0.4 mg sublingual Q5M PRN (Reason: Cardiac/Chest Pain) Qty: 0 0RF potassium, sodium phosphates 280-160-250 mg Powder In Packet 1 packet PO BID Qty: 0 0RF menthol-zinc oxide [Calmoseptine] 0.44-20.6 % Ointment 1 applic topical BID Qty: 0 0RF Protocol: *Topical Application Instructions APPLICATION INSTRUCTIONS: apply to buttocks Ensure Plus High Protein 0.08 gram-1.5 kcal/mL Liquid 120 ml PO 4X/DAY Qty: 0 0RF polyethylene glycol 3350 17 gram/dose powder 17 g PO DAILY Qty: 119 0RF Discontinued dexamethasone 2 mg tablet 4 mg PO TID dexamethasone 2 mg tablet 4 mg PO BID dexamethasone 2 mg tablet 2 mg PO BID dexamethasone 2 mg tablet 2 mg PO DAILY dexamethasone 1 mg tablet 0.5 mg PO DAILY oxycodone 5 mg tablet 5 mg PO Q6H PRN (Reason: pain 1-10) warfarin 4 mg tablet 4 mg PO DAILY ascorbic acid (vitamin C) 500 mg capsule 500 mg PO DAILY glucosamine sulfate [Glucosamine] 500 mg tablet 500 mg PO DAILY Rx Instructions: administer with a meal aspirin 81 mg tablet,chewable 1 tab PO DAILY turmeric 400 mg capsule 400 mg PO DAILY vitamin B complex [Vitamins B Complex] Capsule 1 cap PO DAILY multivitamin [Daily Multi-Vitamin] Tablet 1 tab PO DAILY simvastatin 10 mg tablet 5 mg PO QHS vitamin E 100 unit capsule 201 mg PO DAILY nystatin 100,000 unit/mL Suspension 500,000 unit PO 4X/DAY 10 Days Qty: 200 0RF acetaminophen 500 mg Tablet 1,000 mg PO Q8 Qty: 0 0RF tramadol 50 mg Tablet 50 mg PO Q6H PRN PRN (Reason: Pain Score 1-5) 2 Days Qty: 4 0RF metoclopramide HCl [Reglan] 10 mg tablet 10 mg PO Q6H Qty: 20 0RF metronidazole 500 mg tablet 500 mg PO TID Qty: 20 0RF Referrals / Follow Up: Rayo Lanza DO [Primary Care Provider] - Disposition Disposition (needs filled in before D/C Order can be placed): NonSkilled NH/Intermed Care
[2024-01-16] MEDS: Atorvastatin Calcium 10 MG Tablet 5 MG PO (20:47)
[2024-01-16] MEDS: Mirtazapine 15 MG Tablet 7.5 MG PO (20:48)
[2024-01-17] MEDS: Acetaminophen 500 MG Tablet 1000 MG PO ×3 (05:34→21:07)
[2024-01-17] MEDS: Propafenone 150 MG Tablet 225 MG PO ×3 (05:34→21:07)
[2024-01-17] MEDS: Ensure Plus High Protein 120 ML LIQUID PO ×4 (05:34→21:10)
[2024-01-17] MEDS: Cholecalciferol (VIT D3) 25 MCG TABLET (1,000 UNITS) PO (09:38)
[2024-01-17] MEDS: Lactulose 20 GM/30 ML UDC PO (09:38)
[2024-01-17] MEDS: Calcium Carbonate 500 MG Tablet PO ×2 (09:39→16:46)
[2024-01-17] MEDS: Lactobacillis Acidophilus 1 CAP PO (09:39)
[2024-01-17] MEDS: Senna/Docusate Sodium 1 Tablet 2 TABLET PO ×2 (09:39→21:07)
[2024-01-17] MEDS: Na Biphos/Potassium Phosphate PACKET 1 PACKET PO (09:39)
[2024-01-17] MEDS: Polyethylene Glycol 3350 17 GM PACKET PO (09:39)
[2024-01-17] MEDS: Multivitamin (Healthy Eyes) Capsule 1 CAP PO ×2 (09:39→16:46)
[2024-01-17] MEDS: Lidocaine 5% Patch 1 PATCH TOPICAL (09:40)
--- NOTE | 2024-01-17 10:09 | CASEMGMT ---
Addendum entered by Eulalia Marin 01/17/24 15:18: Patient lost his appeal. SW scheduled cot transport through [facility] for requested time of 1700. SW updated dtr and CC. Original Note: Social Work SW phoned [facility] and left [facility] a VM. received return VM from [facility], stating pt is accepted for DC 01/17, however, d/t [facility] at their building, the pt will need to admit after 1700. IDT agreeable. Will await appeal outcome. PASRR completed. Cot transport to be scheduled. DC paperwork and updated clinicals sent to [facility] via [employer]. Plan: DC 01/17, pending appeal, [facility], intermediate, private pay, part B therapies VINI Sher
[2024-01-17 16:00] VITALS: BP 102/68; PULSE 102; RESP 22; TEMP 36.4; O2SAT 91
[2024-01-17] MEDS: Juven (unflavored) Packet 1 PACKET PO (16:48)
[2024-01-17] MEDS: Mirtazapine 15 MG Tablet 7.5 MG PO (21:07)
[2024-01-17] MEDS: Atorvastatin Calcium 10 MG Tablet 5 MG PO (21:07)
[2024-01-17 21:19] VITALS: PULSE 90; RESP 14; O2SAT 92
[2024-01-17] MEDS: traMADol 50 MG Tablet PO (23:07)
[2024-01-18 06:05] LABS: Hematocrit 40.6 % (40-54); Hemoglobin 13.4 g/dL (13.0-16.5); Mean Corpuscular Hgb 31.8 pg (27.0-32.0); Mean Corpuscular Volume 96.4 fL (80-94); Mean Platelet Vol. 10.9 fl (6.2-12.0); POSITIVE COUNT YES; POSITIVE MORPHOLOGY YES; Platelet Count 253 K/mm3 (150-450); RBC Distribution Width SD 45.9 fl (35.1-43.9); Red Blood Count 4.21 M/mm3 (4.6-6.2)
[2024-01-18 06:17] LABS: Differential Indicated MANUAL DIFF
[2024-01-18] MEDS: traMADol 50 MG Tablet PO ×2 (06:22→19:53)
[2024-01-18] MEDS: Ensure Plus High Protein 120 ML LIQUID PO ×4 (06:22→19:59)
[2024-01-18] MEDS: Propafenone 150 MG Tablet 225 MG PO ×2 (06:23→13:58)
[2024-01-18] MEDS: Acetaminophen 500 MG Tablet 1000 MG PO ×3 (06:23→19:59)
[2024-01-18 06:45] LABS: Anion Gap 4 (5-15); BUN 21 mg/dL (7-18); BUN/Creat Ratio 34.4 RATIO (10-20); Calcium,Total 9.1 mg/dL (8.5-10.1); Chloride 102 mmol/L (98-107); Creatinine, Serum 0.61 mg/dL (0.70-1.30); EST Glomerular Filtration Rate 132 mL/min (>60); Est Glom Filt Rate - Afr Amer 160 mL/min (>60); Estimated Creatinine Clearance 65.72 ml/min; Glucose 113 mg/dL (74-106); Potassium 3.9 mmol/L (3.5-5.1); Sodium Level 136 mmol/L (136-145)
[2024-01-18 06:55] VITALS: PULSE 85; RESP 16; O2SAT 94
[2024-01-18 07:30] LABS: Eosinophil 3 % (0-5); Lymphocyte 50 % (19-41); Monocyte 5 % (0-10); Myelocyte 3 % (0-0); Neutrophil-Segmented 39 % (47-70); Total Cells Counted 100 (MANUAL DIFF)
[2024-01-18 07:31] LABS: Absolute Neutrophil Count 4.7 X10^3/uL (2.0-7.7); Platelet Estimate ADEQUATE (ADEQ); Red Cell Morphology NORM C+C NORMAL (NORM C&C)
[2024-01-18 07:32] LABS: Absolute Lymphocyte Count 5.99 X10^3/uL (0.83-4.51)
[2024-01-18 09:29] VITALS: BP 100/63; PULSE 89; RESP 18; TEMP 36.6; O2SAT 94
[2024-01-18] MEDS: Lidocaine 5% Patch 1 PATCH TOPICAL (09:36)
[2024-01-18] MEDS: Polyethylene Glycol 3350 17 GM PACKET PO (09:36)
[2024-01-18] MEDS: Multivitamin (Healthy Eyes) Capsule 1 CAP PO (09:37)
[2024-01-18] MEDS: Calcium Carbonate 500 MG Tablet PO (09:37)
[2024-01-18] MEDS: Na Biphos/Potassium Phosphate PACKET 1 PACKET PO ×2 (09:37→19:54)
[2024-01-18] MEDS: Senna/Docusate Sodium 1 Tablet 2 TABLET PO (09:37)
[2024-01-18] MEDS: Lactobacillis Acidophilus 1 CAP PO (09:37)
[2024-01-18] MEDS: Juven (unflavored) Packet 1 PACKET PO (09:37)
[2024-01-18] MEDS: Lactulose 20 GM/30 ML UDC PO (09:37)
[2024-01-18] MEDS: Cholecalciferol (VIT D3) 25 MCG TABLET (1,000 UNITS) PO (09:37)
[2024-01-18 12:03] LABS: Pathologist Review Reviewed
[2024-01-18 16:00] VITALS: BP 94/67; PULSE 92; RESP 14; TEMP 37.1; O2SAT 92
--- NOTE | 2024-01-18 17:12 | NURSING ---
report called to Sofie @ [facility]. Transport not here yet awaiting there arrival
--- NOTE | 2024-01-18 17:34 | NURSING ---
[facility] notified d/t no arrival for mixing picker tender at 1700 for transport to [facility]. They stated they had pt scheduled for mixing picker tender tomorrow. Explained it was to be tonight and that [facility] is expecting him tonight. They are able to pick him up at 1930. will update [facility].
--- NOTE | 2024-01-18 19:25 | NURSING ---
[facility] called and stated that they will be here between [id number], [facility] updated.
[2024-01-18] MEDS: Mirtazapine 15 MG Tablet 7.5 MG PO (19:58)
[2024-01-18] MEDS: Atorvastatin Calcium 10 MG Tablet 5 MG PO (20:00)
--- NOTE | 2024-01-18 20:00 | NURSING ---
Call from UBALDO Ahuja to [facility], stating they could not take patient tonight due to staffing. This nurse called Leigha back, who stated that since pickle processor time was not until 11pm that staffing would not be available and doors would be locked that the patient could not come this evening. This nurse stated that last pickle processor time communicated was between 8:30p and 9:00p. Leigha stated that would be ok if that is the case. This nurse stated that I would call her with update. Leigha thankful for communication.
--- NOTE | 2024-01-18 21:30 | NURSING ---
This nurse requested [employer] call [facility] for ETA. Dispatcher stated that it would be 11pm before transport would be here for patient. This nurse talked to dispatch and let them know that facility patient is to be transported to is unable to take patient at that time and request they reschedule for picker tender in AM. New time for picker tender is 10am Monday. Call placed [facility]huja [facility] and she was updated of changes. Family updated as well.
[2024-01-19] MEDS: Ensure Plus High Protein 120 ML LIQUID PO (06:01)
[2024-01-19] MEDS: Acetaminophen 500 MG Tablet 1000 MG PO (06:06)
[2024-01-19] MEDS: Propafenone 150 MG Tablet 225 MG PO (06:07)
[2024-01-19 08:22] VITALS: BP 99/73; PULSE 90; RESP 18; TEMP 36.1; O2SAT 93
[2024-01-19] MEDS: Lidocaine 5% Patch 1 PATCH TOPICAL (09:26)
[2024-01-19] MEDS: Cholecalciferol (VIT D3) 25 MCG TABLET (1,000 UNITS) PO (09:29)
[2024-01-19] MEDS: Lactobacillis Acidophilus 1 CAP PO (09:29)
[2024-01-19] MEDS: Multivitamin (Healthy Eyes) Capsule 1 CAP PO (09:29)
[2024-01-19] MEDS: traMADol 50 MG Tablet PO (10:31)
--- NOTE | 2024-01-19 10:31 | NURSING ---
report called to Francy at [facility], [facility] notified at 1015 was to be here at 10am, spoke with Vicenta & she states they will be here 15 minutes.
== END 2024-01-19 10:55 | disposition intermediate care facility (04) | DRG 689 ==
PROVIDERS: Admitting Provider Family Medicine Geriatric Medicine; Visit Provider Family Medicine Geriatric Medicine
DX: N39.0 Urinary tract infection, site not specified (principal); I26.99 Other pulmonary embolism without acute cor pulmonale; J18.9 Pneumonia, unspecified organism; K56.699 Other intestinal obstruction unspecified as to partial versus complete obstruction; E44.1 Mild protein-calorie malnutrition; I82.402 Acute embolism and thrombosis of unspecified deep veins of left lower extremity; B37.0 Candidal stomatitis; F32.A Depression, unspecified; I48.91 Unspecified atrial fibrillation; E55.9 Vitamin D deficiency, unspecified; E78.5 Hyperlipidemia, unspecified; I25.10 Atherosclerotic heart disease of native coronary artery without angina pectoris; H35.30 Unspecified macular degeneration; K52.9 Noninfective gastroenteritis and colitis, unspecified; J40 Bronchitis, not specified as acute or chronic; K56.41 Fecal impaction; M80.0AXD Age-related osteoporosis with current pathological fracture, other site, subsequent encounter for fracture with routine healing; N40.1 Benign prostatic hyperplasia with lower urinary tract symptoms; Z79.83 Long term (current) use of bisphosphonates; Z79.82 Long term (current) use of aspirin; R33.8 Other retention of urine; Z79.899 Other long term (current) drug therapy; G47.00 Insomnia, unspecified; M80.08XD Age-related osteoporosis with current pathological fracture, vertebra(e), subsequent encounter for fracture with routine healing; R04.0 Epistaxis; Z68.23 Body mass index [BMI] 23.0-23.9, adult
CPT/HCPCS: 36415; 71046; 72040; 74018; 74230; 80048; 81001; 82274; 85025; 85610; 87070; 87086; 87205; 92507; 92523; 92526; 92610; 92611; 97110; 97116; 97129; 97162; 97166; 97530; 97535; 97802; A4216

== ENCOUNTER → 2023-12-28 | Outpatient (CLI) | payer MEDICARE, SELFPAY ==
--- NOTE | 2023-12-28 10:07 | CT_ITS ---
EXAM: CT CERVICAL SPINE WITHOUT INTRAVENOUS CONTRAST CLINICAL INDICATION: Unspecified displaced fracture of second cervical vertebra, TECHNIQUE: Helically acquired images were obtained of the cervical spine without intravenous contrast. 2D reformatted images were reviewed. This CT exam was performed using one or more of the following dose reduction techniques: automated exposure control, adjustment of the mA and/or kV according to patient size, and/or use of iterative reconstruction technique. COMPARISON: No relevant prior studies available. FINDINGS: VERTEBRAE: Acute to 3 fracture involves the base of the odontoid process and extending into the body of C2. The odontoid process is displaced anteriorly and 8 mm resulting in significant narrowing of the spinal canal. Spinal canal measures 6.5 mm at the C1-2 level. AP dimension of the spinal canal at the C2-3 level there is 1.6 cm. Loss of the normal cervical lordosis which may be due to muscle spasm or head positioning. DISCS/SPINAL CANAL/NEURAL FORAMINA: Multilevel disc space narrowing and facet arthropathy. Narrowing of the C4-5 neural foramina related to uncinate joint hypertrophy. SOFT TISSUES: Normal. No prevertebral soft tissue swelling. LYMPH NODES: Normal. No cervical adenopathy. LUNG APICES: Unremarkable as visualized. 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 Electronically Signed: Amilcar Theodore MD at 10:35 EDT ,
--- OUTSIDE RECORDS SUMMARY | 2023-12-28 10:36 | XMS RPT_ITS | CCD ---
Author Organization [facility] Care Team Providers Care Archer[employer] Equipment Hay Sorter Name Role Phone KEVIN CARIAS, JAZIEL Bellamy Primary Care Physician [phone] BRII GRAHAM DO Primary Care Physician BRII GRAHAM DO Attending Unavailable BRII GRAHAM DO Primary Care Unavailable BRII GRAHAM DO Attending Unavailable BRII GRAHAM DO Primary Care Unavailable BRII GRAHAM DO Attending Unavailable BRII GRAHAM DO Primary Care Unavailable MELITA CARIAS, DR SHAYY Alcantar Attending UnavailBRII Paiz DO Primary Care Unavailable Keny Rounding Nurse, Yuri Unavailable RODNEY Trejo DO Attending Unavailable RODNEY GIL DO Consulting Unavailable RODNEY GIL DO Admitting Unavailable BRII GRAHAM DO Primary Care Unavailable HOSPITALIST, GERMAN Consulting Unavailable BRENDEN NGO, DR ARROYO Consulting Unavailable Allergies Allergy Classification Reported Allergen(s) Allergy Type Date of Onset Reaction(s) Facility (7 sources) Penicillin; Translations: [penicillin] Drug Allergy Rash [facility] Medications Current Medications Medication Drug Class(es) Dates Sig (Normalized) Sig (Original) acetaminophen 325 mg oral capsule (1 source) Start: 12-12-2023 take 1 capsule by mouth every six hours Tylenol 325 mg oral capsule Dose : 650 mg =, Oral, q6h, 0 Refill(s) Start Date: 12/12/23 Status: Ordered alendronic acid 70 mg oral tablet (3 sources) Bisphosphonate Start: 10-17-2023 alendronate 70 mg oral tablet Dose : 70 mg = 1 tab(s), Oral, qWeek, # 13 tab(s), 1 Refill(s), Pharmacy: [facility] #[id number], 177.5, cm, 08/28/23 14:21:00 EDT, Height, kg, 08/28/23 14:21:00 EDT, Dosing Weight Start Date: 10/17/23 Status: Ordered aspirin 81 mg chewable tablet (4 sources) Platelet Aggregation Inhibitor, Nonsteroidal Anti-inflammatory Drug Start: 12-06-2022 take 1 mg by mouth once daily aspirin 81 mg oral tablet, chewable mg = tab(s), Chewed, qDay, 0 Refill(s) Start Date: 12/06/22 Status: Ordered B Complex 50 oral tablet (4 sources) Start: 12-06-2022 take 1 tablet by mouth once daily B Complex 50 oral tablet Oral, qDay, takes 125 mg daily, 0 Refill(s) Start Date: 12/06/22 Status: Ordered calcium citrate 500 mg oral tablet (4 sources) Start: 12-06-2022 Citracal 500 mg oral tablet Oral, BID, takes 600 mg daily, 0 Refill(s) Start Date: 12/06/22 Status: Ordered Chondroitin Sulfates / Glucosamine (4 sources) Start: 12-06-2022 Glucosamine Chondroitin Oral, qDay, 500mg/400mg daily, 0 Refill(s) Start Date: 12/06/22 Status: Ordered dexamethasone 2 mg oral tablet (1 source) Corticosteroid Start: 12-12-2023 dexAMETHasone 2 mg oral tablet See Instructions, 2 tabs (4mg) TID x 1 day 2 tabs (4 mg) BID x 2 days 1 tab (2mg) BID x 2 days 1 tab (2mg) daily x 2 days 0.5 tab (1mg) day x 2 days then stop., # 27 tab(s), 0 Refill(s), Pharmacy: [facility] #[id number], 177.8, cm, 12/01/23 4:47:00 EDT, Height, kg, 12/01/23 4:47:00 EDT, Dosing Weight Start Date: 12/12/23 Status: Ordered Lactobacillus acidophilus (4 sources) Start: 12-06-2022 Acidophilus oral tablet Oral, qDay, 0 Refill(s) Start Date: 12/06/22 Status: Ordered Multivitamin preparation (4 sources) Start: 12-06-2022 take 1 tablet by mouth once daily Multivitamin Dose = 1 tab(s), Oral, Daily, multivitamin and mineral, 0 Refill(s) Start Date: 12/06/22 Status: Ordered oxyCODONE hydrochloride 5 mg oral tablet (1 source) Opioid Agonist Start: 12-12-2023 End: 12-17-2023 oxyCODONE 5 mg oral tablet ( IMMEDIATE release ) Dose : 5 mg = 1 tab(s), Oral, q6h, PRN for pain, X 5 day(s), # 20 tab(s), 0 Refill(s), 12/17/23 9:24:00 AM EDT, Acute pain, 92.7 Start Date: 12/12/23 Stop Date: 12/17/23 Status: Ordered pindolol 5 mg oral tablet (1 source) beta-Adrenergic Mason Start: 12-08-2020 take 0.5 tablet by mouth once daily pindolol 5 mg oral tablet See Instructions, Take 1/2 (one-half) tablet by mouth once daily, # 45 tab(s), 3 Refill(s), Pharmacy: [id number], 179, cm, 10/05/20 8:00:00 EDT, Height, kg, 10/05/20 8:00:00 EDT, Dosing Weight Start Date: 12/08/20 Status: Ordered PreserVision AREDS 2 (4 sources) Start: 12-06-2022 PreserVision AREDS 2 Chewed, BID, 0 Refill(s) Start Date: 12/06/22 Status: Ordered Probiotic (4 sources) Start: 12-06-2022 Probiotic 0 Refill(s) Start Date: 12/06/22 Status: Ordered saw palmetto oral capsule (4 sources) Start: 12-06-2022 take 1 capsule by mouth once daily saw palmetto oral capsule takes 540 mg daily, 0 Refill(s) Start Date: 12/06/22 Status: Ordered simvastatin 10 mg oral tablet (7 sources) HMG-CoA Reductase Inhibitor Start: 06-13-2023 simvastatin 10 mg oral tablet Dose : 5 mg = 0.5 tab(s), Oral, qHS, TAKE 1/2 (ONE-HALF) TABLET BY MOUTH EVERY DAY AT BEDTIME, # 50 tab(s), 1 Refill(s), Pharmacy: [facility] #[id number], 177.5, cm, 06/13/23 10:34:00 EDT, Height, kg, 06/13/23 10:34:00 EDT, Dosing Weight Start Date: 06/13/23 Status: Ordered Start: 03-14-2023 simvastatin 10 mg oral tablet Dose : 5 mg = 0.5 tab(s), Oral, qHS, TAKE 1/2 (ONE-HALF) TABLET BY MOUTH EVERY DAY AT BEDTIME, # 45 tab(s), 3 Refill(s), Pharmacy: [facility] [place] [facility] #[id number], 175.3, cm, 12/06/22 10:56:00 EDT, Height, kg, 12/06/22 10:56:00 EDT, Dosing Weight Start Date: 03/14/23 Status: Ordered Start: 12-03-2021 End: 11-28-2022 take 0.5 tablet by mouth once daily at bedtime simvastatin 10 mg oral tablet 0.5 tab, Oral, qHS, X 90 day(s), # 45 tab(s), 3 Refill(s), 11/28/22 9:04:00 EDT, Pharmacy: [id number], 178, cm, 11/19/21 10:58:00 EDT, Height, kg, 11/19/21 10:58:00 EDT, Dosing Weight Start Date: 12/03/21 Stop Date: 11/28/22 Status: Ordered Start: 12-08-2020 take 0.5 tablet by m outh once daily simvastatin 10 mg oral tablet See Instructions, Take 1/2 (one-half) tablet by mouth once daily, # 45 tab(s), 3 Refill(s), Pharmacy: [id number], 179, cm, 10/05/20 8:00:00 EDT, Height, kg, 10/05/20 8:00:00 EDT, Dosing Weight Start Date: 12/08/20 Status: Ordered Vitamin C 500 mg oral tablet (4 sources) Start: 12-06-2022 take 1 mg by mouth once daily Vitamin C 500 mg oral tablet mg = tab(s), Oral, qDay, 0 Refill(s) Start Date: 12/06/22 Status: Ordered Vitamin D3 25 mcg (1000 intl units) oral capsule (4 sources) Start: 12-06-2022 take 1 capsule by mouth once daily Vitamin D3 25 mcg (1000 intl units) oral capsule mcg = cap(s), Oral, qDay, 0 Refill(s) Start Date: 12/06/22 Status: Ordered vitamin e 90 mg oral capsule (4 sources) Start: 12-06-2022 vitamin E 200 intl units oral capsule Dose : 200 International_Uni t = 1 cap(s), Oral, Daily, 0 Refill(s) Start Date: 12/06/22 Status: Ordered warfarin sodium 2 mg oral tablet (13 sources) Vitamin K Antagonist Start: 12-12-2023 warfarin 2 mg oral tablet Dose : 4 mg = 2 tab(s), Oral, qDay, 0 Refill(s) Start Date: 12/12/23 Status: Ordered Start: 10-24-2023 take 6 mg by mouth once daily warfarin 1 mg oral tablet See Instructions, 6mg every day, # 100 tab(s), 0 Refill(s), Pharmacy: [facility] #[id number], 177.5, cm, 08/28/23 14:21:00 EDT, Height, kg, 08/28/23 14:21:00 EDT, Dosing Weight Start Date: 10/24/23 Status: Ordered Start: 10-24-2023 take 6 mg by mouth once daily warfarin 5 mg oral tablet See Instructions, 6mg every day, # 100 tab(s), 1 Refill(s), Pharmacy: [facility] #[id number], 177.5, cm, 08/28/23 14:21:00 EDT, Height, kg, 08/28/23 14:21:00 EDT, Dosing Weight Start Date: 10/24/23 Status: Ordered Start: 04-11-2023 take 6 mg by mouth once daily warfarin 1 mg oral tablet See Instructions, 6mg every day, # 90 tab(s), 0 Refill(s), Pharmacy: [facility] #[id number], 178, cm, 04/11/23 10:25:00 EST, Height, kg, 04/11/23 10:25:00 EST, Dosing Weight Start Date: 04/11/23 Status: Ordered Start: 04-11-2023 take 6 mg by mouth once daily warfarin 5 mg oral tablet See Instructions, 6mg every day, # 90 tab(s), 1 Refill(s), Pharmacy: [facility] #[id number], 178, cm, 04/11/23 10:25:00 EST, Height, kg, 04/11/23 10:25:00 EST, Dosing Weight Start Date: 04/11/23 Status: Ordered Start: 10-18-2021 take 6 mg by mouth once daily warfarin 1 mg oral tablet See Instructions, 6mg every day, # 90 tab(s), 3 Refill(s), Pharmacy: [facility], 178, cm, 10/18/21 8:23:00 EDT, Height, kg, 10/18/21 8:23:00 EDT, Dosing Weight Start Date: 10/18/21 Status: Ordered Start: 10-18-2021 take 6 mg by mouth once daily warfarin 5 mg oral tablet See Instructions, 6mg every day, # 90 tab(s), 3 Refill(s), Pharmacy: [id number], 178, cm, 10/18/21 8:23:00 EDT, Height, kg, 10/18/21 8:23:00 EDT, Dosing Weight Start Date: 10/18/21 Status: Ordered Start: 12-08-2020 take 1 tablet by pat th once daily warfarin 1 mg oral tablet See Instructions, Take 1 tablet by mouth once daily, # 90 tab(s), 3 Refill(s), Pharmacy: [id number], 179, cm, 10/05/20 8:00:00 EDT, Height, kg, 10/05/20 8:00:00 EDT, Dosing Weight Start Date: 12/08/20 Status: Ordered Start: 12-08-2020 take 1 tablet by pat th once daily warfarin 5 mg oral tablet See Instructions, Take 1 tablet by mouth once daily, # 90 tab(s), 3 Refill(s), Pharmacy: [facility], 179, cm, 10/05/20 8:00:00 EDT, Height, kg, 10/05/20 8:00:00 EDT, Dosing Weight Start Date: 12/08/20 Status: Ordered Zinc (1 source) Start: 12-06-2022 take 1 mg by mouth o nce daily Zinc mg =, Oral, qDay, takes 30 mg daily, 0 Refill(s) Start Date: 12/06/22 Status: Ordered Completed/Discontinued Medications Medication Drug Class(es) Dates Sig (Normalized) Sig (Original) 1 ml denosumab 60 mg/ml prefilled syringe (2 sources) RANK Ligand Inhibitor Start: 04-11-2023 Prolia 60 mg/mL subcutaneous solution Dose : 60 mg = 1 mL, Subcutaneous, q6mo, M81.0, # 1 mL, 1 Refill(s), Pharmacy: [facility], 178, cm, 04/11/23 10:25:00 EST, Height, kg, 04/11/23 10:25:00 EST, Dosing Weight Start Date: 05/22/23 Status: Ordered Propafenone (9 sources) Antiarrhythmic Start: 12-09-2023 End: 12-09-2023 propafenone Start: 12/09/23 4:00:00 PM EDT, Dose = 225 mg, = 1.5 tab(s), Oral, 0, 12/01/23 10:35:00 EDT Start Date: 12/09/23 Stop Date: 12/09/23 Status: Completed Start: 12-08-2023 End: 12-08-2023 propafenone Start: 12/08/23 1 0:00:00 PM EDT, Dose = 225 mg, = 1.5 tab(s), Oral, 0, 12/01/23 10:35:00 EDT Start Date: 12/08/23 Stop Date: 12/08/23 Status: Completed Start: 06-13-2023 take 1 tablet by pat three times daily propafenone 225 mg oral tablet 1 tab(s), Oral, TID, # 300 tab(s), 1 Refill(s), Pharmacy: [facility] #[id number], 177.5, cm, 06/13/23 10:34:00 EDT, Height, kg, 06/13/23 10:34:00 EDT, Dosing Weight Start Date: 06/13/23 Status: Ordered Start: 03-14-2023 take 1 tablet by pat three times daily propafenone 225 mg oral tablet 1 tab(s), Oral, TID, # 270 tab(s), 3 Refill(s), Pharmacy: [facility] #[id number], 175.3, cm, 12/06/22 10:56:00 EDT, Height, kg, 12/06/22 10:56:00 EDT, Dosing Weight Start Date: 03/14/23 Status: Ordered Start: 06-06-2022 take 1 tablet by pat th three times daily propafenone 225 mg oral tablet 1 tab(s), Oral, TID, # 270 tab(s), 0 Refill(s), Pharmacy: [facility], 178, cm, 01/18/22 10:16:00 EST, Height, kg, 01/18/22 10:16:00 EST, Dosing Weight Start Date: 06/06/22 Status: Ordered Start: 03-10-2021 take 1 tablet by pat th three times daily propafenone 225 mg oral tablet See Instructions, TAKE 1 TABLET BY MOUTH THREE TIMES DAILY, # 270 tab(s), 3 Refill(s), Pharmacy: [facility], 179, cm, 01/04/21 7:56:00 EDT, Height, kg, 01/04/21 7:56:00 EDT, Dosing Weight Start Date: 03/10/21 Status: Ordered turmeric extract 500 mg oral capsule (4 sources) Start: 12-06-2022 turmeric 500 m g oral capsule takes turmeric 600mg and black pepper 5 mg, 0 Refill(s) Start Date: 12/06/22 Status: Ordered Problems Problem Classification Problem Date Documented Date Episodic/Chronic Adjustment disorders (3 sources) Grief finding 10-31-2023 Chronic Cardiac dysrhythmias (11 sources) Atrial fibrillation; Translations: [Paroxysmal atrial fibrillation] Onset: 12-01-2023 01-04-2021 Chronic Coronary atherosclerosis and other heart disease (8 sources) Coronary arteriosclerosis; Translations: [Coronary atherosclerosis] 01-14-2019 Chronic Coronary atherosclerosis and other heart disease (7 sources) Patient post percutaneous transluminal coronary angioplasty 03-22-2019 Episodic Diabetes mellitus without complication (4 sources) Prediabetes; Translations: [Prediabetes] Episodic Disorders of lipid metabolism (7 sources) Mixed hyperlipidemia 01-14-2019 Chronic Heart valve disorders (9 sources) Non-rheumatic mitral regurgitation ; Translations: [Nonrheumatic mitral (valve) insufficiency] Onset: 12-01-2023 03-23-2021 Chronic Osteoporosis (4 sources) Osteoporosis Onset: 07-01-2022 07-01-2022 Chronic Other aftercare (3 sources) Long-term current use of anticoagulant 07-06-2020 Episodic Other aftercare (2 sources) Requires lifelong warfarin therapy 01-18-2022 Episodic Other ear and sense organ disorders (7 sources) Bilateral hearing loss 10-04-2018 Chronic Other ear and sense organ disorders (6 sources) Does use hearing aid 10-18-2021 Episodic Other fractures (2 sources) Closed fracture of second cervical vertebra; Translations: [Anterior displaced Type II dens fracture, initial encounter for closed fracture] Onset: 11-30-2023 Episodic Other fractures (2 sources) Closed fracture of sternum; Translations: [Unspecified fracture of sternum, initial encounter for closed fracture] Onset: 11-30-2023 Episodic Other fractures (2 sources) Other displaced dens fracture, initial encounter for closed fracture; Translations: [Other displaced dens fracture, initial encounter for closed fracture] Onset: 11-30-2023 Episodic Other nervous system disorders (1 source) Vascular myelopathy; 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 Other screening for suspected conditions (not mental disorders or infectious disease) (7 sources) Raised TSH level; Translations: [Blood chemistry abnormal] 10-18-2021 Episodic Residual codes; unclassified (1 source) Pain; Translations: [Pain, unspecified] Onset: 12-12-2023 Episodic Spinal cord injury (1 source) Cervical spinal cord injury; Translations: [Unspecified injury at C2 level of cervical spinal cord, initial encounter] Chronic Superficial injury; contusion (1 source) Contusion of chest; Translations: [Contusion of unspecified front wall of thorax, initial encounter] Episodic Thyroid disorders (3 sources) Subclinical hypothyroidism 06-13-2023 Chronic Unclassified (6 sources) Anticoagulant effect 10-18-2021 Unclassified (4 sources) Hypercoagulable state due to atrial fibrillation 04-11-2023 Results Test Name Value Interpretation Reference Range Facility CT ANGIOGRAPHY ABD/PELVIS/BI LAT LOWER EXTREMon 12-12-2023 CT ANGIOGRAPHY ABD/PELVIS/BILAT LOWER EXTREM ORIGINAL EXAMINATION: CTA OF THE AORTA WITH LOWER EXTREMITY RUNOFF 12/12/2023 1:53 pm TECHNIQUE: CTA of the pelvis and bilateral lower extremities was performed after the administration of intravenous contrast. Multiplanar reformatted images are provided for review. MIP images are provided for review. Automated exposure control, iterative reconstruction, and/or weight based adjustment of the mA/kV was utilized to reduce the radiation dose to as low as reasonably achievable. COMPARISON: None. HISTORY: ORDERING SYSTEM PROVIDED HISTORY: Reason for Exam: RECENT FALL WITH C2 FX C COLLAR ON. STERNAL FX. COLD LOWER EXTREMITES. ON THINNERS cold lower extremities FINDINGS: Nonvascular No effusion within the minimally included lung bases. The liver and bowel loops are partially excluded from the field view. The pancreas spleen and adrenals are normal. No urinary calculi or hydronephrosis. No free intraperitoneal air or fluid identified. There is a large rectal stool burden. Evaluation of the included lower extremity joints is severely limited on the provided reconstructions. There is no acute fracture or suspicious osseous lesion identified, however. VASCULAR Aorta: The abdominal aorta is normal in course and caliber. There is scattered foci of calcified atherosclerotic plaque. Visceral arteries: Hook like configuration of the celiac artery with 1.3 cm fusiform ectasia distally is suggestive of median arcuate ligament phenomenon. This appearance may be seen in asymptomatic individuals, although it has also been associated with median arcuate ligament syndrome. The superior and inferior mesenteric arteries are normal. Both renal arteries are patent. Pelvic arteries: Moderately tortuous iliac vessels. The common iliac, external iliac, and internal iliac arteries are patent. Peripheral arteries: Contrast bolus the superficial and deep femoral arteries at the level of the mid femoral diaphysis. The arterial structures are not opacified more distally. Calcified atherosclerotic plaque is seen within the below knee vessels. Venous: Dilated tortuous arises from the deep branch of the right deep femoral artery draining into the right deep femoral vein. Linear filling defect is seen within the deep femoral vein which may represent chronic thrombus or mixing artifact. Additionally, the hepatic and portal veins are partially opacified likely due to prior contrast boluses. The renal veins are opacified and appear patent. 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 This may be acquired/posttraumati c or less likely congenital. *No arterial opacification beyond the level of the mid thigh, possibly due to contrast bolus timing. Above described arteriovenous fistula would be too small to explain poor opacification. Correlate with signs and symptoms of acute limb ischemia. *Otherwise no acute traumatic abnormality identified. *Linear filling defects within the left femoral and iliac veins may represent chronic thrombus or mixing artifact. Interpreted by: Aris Bhatia Preliminary Report By: Aris Bhatia Electronically signed By Aris Bhatia Dictated Date: 12/12/2023 2:45:49 PM Prelim Date: 12/12/2023 3:12:06 PM Sign Date: 12/12/2023 3:12:06 PM Ordering Provider: VICENTE JONES [facility] MAIN LABORATORYOrdered By: SYSTEM SYSTEM on 12-12-2023 PT Coag (PPP) [Time] 23.8 s High 9.0 - 1 4.4 seconds [facility] Comment on above: Interpretive Data: E ffective 09/18/07, Protime results may be affected by some antibiotics (i.e. Ciprofloxacin, Azithromycin, Bactrim) which may potentiate the action of oral anticoagulants, with further increases in Protime/INR. PT International Ratio 2.0 ratio Invalid Interpretation Code Kianna Comment on above: Interpretive Data: aWyne reynolds [employer] (CHEST, 1991, 102:312S-25S) recommended therapeutic range for oral anticoagulant therapy is: LOW RISK: Prophylaxis of venous thrombosis INR: 2.0-3.0 Treatment of pulmonary embolism 2.0-3.0 Prevention of systemic embolism 2.0-3.0 HIGH RISK: Mechanical prosthetic valves 2.5-3.5 PROon 12-12-2023 INR Coag (PPP) [Relative time] 2.0 {INR} [facility] MAIN Comment on above: Order Comment: order ed secondary to warfarin order Result Comment: [employer] (CHEST, 1991, [id number]-25S) recommended therapeutic range for oral anticoagulant therapy is: LOW RISK: Prophylaxis of venous thrombosis INR: 2.0-3.0 Treatment of pulmonary embolism 2.0-3.0 Prevention of systemic embolism 2.0-3.0 HIGH RISK: Mechanical prosthetic valves 2.5-3.5 Performed By: #### A DIFF, CBC, ANEU #### [place] [address] PT Coag (PPP) [Time] 23.8 s High 9.0-14.4 [facility] Comment on above: Order Comment: order ed secondary to warfarin order Result Comment: Effe ctive 09/18/07, Protime results may be affected by some antibiotics (i.e. Ciprofloxacin, Azithromycin, Bactrim) which may potentiate the action of oral anticoagulants, with further increases in Protime/INR. Performed By: #### A DIFF, CBC, ANEU #### [facility] [address] [place] [id number] LABORATORYOrdered By: SYSTEM SYSTEM on 12-11-2023 PT Coag (PPP) [Time] 33.1 s High 9.0 - 1 4.4 seconds Kianna Comment on above: Interpretive Data: E ffective 09/18/07, Protime results may be affected by some antibiotics (i.e. Ciprofloxacin, Azithromycin, Bactrim) which may potentiate the action of oral anticoagulants, with further increases in Protime/INR. PT International Ratio 2.8 ratio Invalid Interpretation Code Kianna Comment on above: Interpretive Data: Wayne reynolds [employer] (CHEST, 1992, [id number]-25S) recommended therapeutic range for oral anticoagulant therapy is: LOW RISK: Prophylaxis of venous thrombosis INR: 2.0-3.0 Treatment of pulmonary embolism 2.0-3.0 Prevention of systemic embolism 2.0-3.0 HIGH RISK: Mechanical prosthetic valves 2.5-3.5 PROon 12-11-2023 INR Coag (PPP) [Relative time] 2.8 {INR} Normal [facility] Comment on above: Order Comment: order ed secondary to warfarin order Result Comment: [employer] (CHEST, 1992, [id number]-25S) recommended therapeutic range for oral anticoagulant therapy is: LOW RISK: Prophylaxis of venous thrombosis INR: 2.0-3.0 Treatment of pulmonary embolism 2.0-3.0 Prevention of systemic embolism 2.0-3.0 HIGH RISK: Mechanical prosthetic valves 2.5-3.5 Performed By: #### U A #### [facility] [address] [place] [id number] PT Coag (PPP) [Time] 33.1 s High 9.0-14.4 [facility] Comment on above: Order Comment: order ed secondary to warfarin order Result Comment: Effe ctive 09/18/07, Protime results may be affected by some antibiotics (i.e. Ciprofloxacin, Azithromycin, Bactrim) which may potentiate the action of oral anticoagulants, with further increases in Protime/INR. Performed By: #### U A #### [facility] [address] [place] [id number] LABORATORYOrdered By: SYSTEM SYSTEM on 12-10-2023 PT Coag (PPP) [Time] 46.9 s High 9.0 - 1 4.4 seconds Kianna Comment on above: Interpretive Data: E ffective 09/18/07, Protime results may be affected by some antibiotics (i.e. Ciprofloxacin, Azithromycin, Bactrim) which may potentiate the action of oral anticoagulants, with further increases in Protime/INR. PT International Ratio 4.0 ratio Invalid Interpretation Code [facility] Comment on above: Interpretive Data: Wayne reynolds [employer] (CHEST, 1992, [id number]-25S) recommended therapeutic range for oral anticoagulant therapy is: LOW RISK: Prophylaxis of venous thrombosis INR: 2.0-3.0 Treatment of pulmonary embolism 2.0-3.0 Prevention of systemic embolism 2.0-3.0 HIGH RISK: Mechanical prosthetic valves 2.5-3.5 PROon 12-10-2023 INR Coag (PPP) [Relative time] 4.0 {INR} Normal [facility] Comment on above: Order Comment: order ed secondary to warfarin order Result Comment: [employer] (CHEST, 1992, 102:312S-25S) recommended therapeutic range for oral anticoagulant therapy is: LOW RISK: Prophylaxis of venous thrombosis INR: 2.0-3.0 Treatment of pulmonary embolism 2.0-3.0 Prevention of systemic embolism 2.0-3.0 HIGH RISK: Mechanical prosthetic valves 2.5-3.5 Performed By: #### A DIFF, CBC, ANEU #### [facility] [address] [place] [id number] PT Coag (PPP) [Time] 46.9 s High 9.0-14.4 [facility] Comment on above: Order Comment: order ed secondary to warfarin order Result Comment: Effe ctive 09/18/07, Protime results may be affected by some antibiotics (i.e. Ciprofloxacin, Azithromycin, Bactrim) which may potentiate the action of oral anticoagulants, with further increases in Protime/INR. Performed By: #### A DIFF, CBC, ANEU #### [place] [id number] [place] [id number] PROon 12-09-2023 INR Coag (PPP) [Relative time] 5.4 {INR} Critically abnormal [facility] Comment on above: Order Comment: order ed secondary to warfarin order Result Comment: [employer] (CHEST, 1992, 102:312S-25S) recommended therapeutic range for oral anticoagulant therapy is: LOW RISK: Prophylaxis of venous thrombosis INR: 2.0-3.0 Treatment of pulmonary embolism 2.0-3.0 Prevention of systemic embolism 2.0-3.0 HIGH RISK: Mechanical prosthetic valves 2.5-3.5 Performed By: #### U A #### [address] [address] PT Coag (PPP) [Time] 63.1 s High 9.0-14.4 [facility] Comment on above: Order Comment: order ed secondary to warfarin order Result Comment: Effe ctive 09/18/07, Protime results may be affected by some antibiotics (i.e. Ciprofloxacin, Azithromycin, Bactrim) which may potentiate the action of oral anticoagulants, with further increases in Protime/INR. Performed By: #### U A #### [address] [address] PRO 12-08-2023 INR Coag (PPP) [Relative time] 4.8 {INR} Normal [facility] Comment on above: Order Comment: order ed secondary to warfarin order Result Comment: [employer] (CHEST, 1991, 102:312S-25S) recommended therapeutic range for oral anticoagulant therapy is: LOW RISK: Prophylaxis of venous thrombosis INR: 2.0-3.0 Treatment of pulmonary embolism 2.0-3.0 Prevention of systemic embolism 2.0-3.0 HIGH RISK: Mechanical prosthetic valves 2.5-3.5 Performed By: #### P RO #### [address] [address] PT Coag (PPP) [Time] 55.7 s High 9.0-14.4 [facility] Comment on above: Order Comment: order ed secondary to warfarin order Result Comment: Effe ctive 09/18/07, Protime results may be affected by some antibiotics (i.e. Ciprofloxacin, Azithromycin, Bactrim) which may potentiate the action of oral anticoagulants, with further increases in Protime/INR. Performed By: #### P RO #### [address] [address] .Auto Diffon 12-07-2023 Basophil, Absolute 0.0 10 3/mcL Normal 0.0-0.3 [facility] Comment on above: Performed By: #### A DIFF, CBC, ANEU #### [place] [id number] Basophils/100 WBC (Bld) 0.0 % Normal 0.0-2.5 [facility] Comment on above: Performed By: #### A DIFF, CBC, ANEU #### [place] [id number] Eosinophil, Absolute 0.0 10 3/mcL Normal 0.0-0.7 [facility] Comment on above: Performed By: #### A DIFF, CBC, ANEU #### [address] [address] Eosinophils/100 WBC (Bld) 0.0 % Normal 0.0-6.0 [facility] Comment on above: Performed By: #### A DIFF, CBC, ANEU #### [address] [address] Lymphocyte, Absolute 1.1 10 3/mcL Normal 0.9-4.3 [facility] Comment on above: Performed By: #### A DIFF, CBC, ANEU #### [address] [address] Lymphocytes/100 WBC (Bld) 8.3 % Low 20.0-40.0 [facility] Comment on above: Performed By: #### A DIFF, CBC, ANEU #### [address] [address] Monocyte, Absolute 1.1 10 3/mcL Normal 0.1-1.4 [facility] Comment on above: Performed By: #### A DIFF, CBC, ANEU #### [address] [address] Monocytes/100 WBC (Bld) 7.8 % Normal 2.0-13.0 [facility] Comment on above: Performed By: #### A DIFF, CBC, ANEU #### [address] [address] Neutrophils/100 WBC (Bld) 83.9 % High 50.0-75.0 [facility] Comment on above: Performed By: #### A DIFF, CBC, ANEU #### [address] [address] .GFRon 12-07-2023 GFR Non- >60 [facility] Comment on above: Result Comment: GFR Population mean for , Non- Americans Ages 20-29 = 116 mL/min/1.73 sq.m. Ages 30-39 = 107 mL/min/1.73 sq.m. Ages 40-49 = 99 mL/min/1.73 sq.m. Ages 50-59 = 93 mL/min/1.73 sq.m. Ages 60-69 = 85 mL/min/1.73 sq.m. Ages 70+ = 75 mL/min/1.73 sq.m. Chronic Kidney Disease: Less than 60 mL/min/1.73 square meters End Stage Renal Disease: Less than 15 mL/min/1.73 square meters Performed By: #### A DIFF, CBC, ANEU #### [address] [address] GFR >60 [facility] Comment on above: Result Comment: GFR Population mean for , Non- Americans Ages 20-29 = 116 mL/min/1.73 sq.m. Ages 30-39 = 107 mL/min/1.73 sq.m. Ages 40-49 = 99 mL/min/1.73 sq.m. Ages 50-59 = 93 mL/min/1.73 sq.m. Ages 60-69 = 85 mL/min/1.73 sq.m. Ages 70+ = 75 mL/min/1.73 sq.m. Chronic Kidney Disease: Less than 60 mL/min/1.73 square meters End Stage Renal Disease: Less than 15 mL/min/1.73 square meters Performed By: #### A DIFF, CBC, ANEU #### [address] [address] .NEUABSon 12-07-2023 Neutrophil, Absolute 11.4 10 3/mcL High 2.3-8.1 [facility] Comment on above: Performed By: #### A DIFF, CBC, ANEU #### [address] [address] BMPon 12-07-2023 BUN/Creatinine Ratio 42.3 ratio High 10.0-22.0 [facility] Comment on above: Performed By: #### A DIFF, CBC, ANEU #### [place] [id number] Calcium [Mass/Vol] 9.0 mg/dL Normal 8.7-10.4 [facility] Comment on above: Performed By: #### A DIFF, CBC, ANEU #### [place] [address] Chloride [Moles/Vol] 101 mmol/L Normal 98-110 [facility] Comment on above: Performed By: #### A DIFF, CBC, ANEU #### [place] [address] CO2 [Moles/Vol] 27 mmol/L Normal 22-32 [facility] Comment on above: Performed By: #### A DIFF, CBC, ANEU #### [place] [address] Creatinine [Mass/Vol] 0.71 mg/dL Normal 0.60-1.40 [facility] Comment on above: Result Comment: Test ing performed on [employer] analyzer using enzymatic creatinine methodology. Performed By: #### A DIFF, CBC, ANEU #### [place] [id number] Electrolyte Balance 7.0 mEq/L Normal 4.0-15.[address] [facility] Comment on above: Performed By: #### A DIFF, CBC, ANEU #### [place] [phone] Glucose [Mass/Vol] 167 mg/dL High 82-115 [facility] Comment on above: Performed By: #### A DIFF, CBC, ANEU #### [address] [address] Potassium [Moles/Vol] 4.5 mmol/L Normal 3.5-5.0 [facility] Comment on above: Performed By: #### A DIFF, CBC, ANEU #### [address] [address] Sodium [Moles/Vol] 135 mmol/L Low 136-145 [facility] Comment on above: Performed By: #### A DIFF, CBC, ANEU #### [address] [address] Urea nitrogen [Mass/Vol] 30.0 mg/dL High 8.0-22.0 [facility] Comment on above: Performed By: #### A DIFF, CBC, ANEU #### [address] [address] CBCon 12-07-2023 Erythrocyte distribution width (RBC) [Ratio] 13.0 % Normal 11.5-15.5 [facility] Comment on above: Performed By: #### A DIFF, CBC, ANEU #### [address] [address] Hematocrit (Bld) [Volume fraction] 44.7 % Normal 40.0-52.0 [facility] Comment on above: Performed By: #### A DIFF, CBC, ANEU #### [address] [address] Hgb 15.1 G/dL Normal 13.0-17.5 [facility] Comment on above: Performed By: #### A DIFF, CBC, ANEU #### [address] [address] MCH (RBC) [Entitic mass] 32.4 pg Normal 27.0-33.0 [facility] Comment on above: Performed By: #### A DIFF, CBC, ANEU #### [address] [address] MCHC 33.7 G/dL Normal 32.0-36.0 [facility] Comment on above: Performed By: #### A DIFF, CBC, ANEU #### [address] [address] MCV (RBC) [Entitic vol] 96.1 fL Normal 81.0-100.0 [facility] Comment on above: Performed By: #### A DIFF, CBC, ANEU #### [place] [address] Platelet 217 10 3/mcL Normal 150-450 [facility] Comment on above: Performed By: #### A DIFF, CBC, ANEU #### [place] [address] Platelet mean volume (Bld) [Entitic vol] 9.9 fL Normal 6.4-10.5 [facility] Comment on above: Performed By: #### A DIFF, CBC, ANEU #### [place] [address] RBC 4.65 10 6/mcL Normal 4.50-6.00 [facility] Comment on above: Performed By: #### A DIFF, CBC, ANEU #### [place] [address] WBC 13.5 10 3/mcL High 4.5-10.8 [facility] Comment on above: Performed By: #### A DIFF, CBC, ANEU #### [place] [address] LABORATORYOrdered By: SYSTEM SYSTEM on 12-07-2023 Basophils (Bld) [#/Vol] 0.0 103/mcL Normal 0.0 - 0.3 10^3/mcL AH Workflow SS Basophils/100 WBC (Bld) 0.0 % Normal 0.0 - 2.5 % AH Workflow SS Calcium [Mass/Vol] 9.0 mg/dL Normal 8.7 - 10. 4 mg/dL ADM SS Chloride [Moles/Vol] 101 mmol/L Normal 98 - 11 0 mEq/L AH ADM SS CO2 [Moles/Vol] 27 mmol/L Normal 22 - 32 mEq/L ADM SS Creatinine [Mass/Vol] 0.71 mg/dL Normal 0.60 - 1.40 mg/dL ADM SS Comment on above: Interpretive Data: T esting performed on [employer] analyzer using enzymatic creatinine methodology. Electrolyte Balance 7.0 mEq/L Normal 4.0 - 15 .0 mEq/L ADM SS Eosinophils (Bld) [#/Vol] 0.0 103/mcL Normal 0.0 - 0.7 10^3/mcL Workflow SS Eosinophils/100 WBC (Bld) 0.0 % Normal 0.0 - 6.0 % Workflow SS Erythrocyte distribution width (RBC) [Ratio] 13.0 % Normal 11.5 - 15.5 % Workflow SS GFR/1.73 sq M.predicted among blacks MDRD (S/P/Bld) [Vol rate/Area] ml/min/1.73sqm Invalid Interpretation Code adjust Chemistry S Comment on above: Interpretive Data: GFR Population mean for , Non- Americans Ages 20-29 = 116 mL/min/1.73 sq.m. Ages 30-39 = 107 mL/min/1.73 sq.m. Ages 40-49 = 99 mL/min/1.73 sq.m. Ages 50-59 = 93 mL/min/1.73 sq.m. Ages 60-69 = 85 mL/min/1.73 sq.m. Ages 70+ = 75 mL/min/1.73 sq.m. Chronic Kidney Disease: Less than 60 mL/min/1.73 square meters End Stage Renal Disease: Less than 15 mL/min/1.73 square meters GFR/1.73 sq M.predicted among non-blacks MDRD (S/P/Bld) [Vol rate/Area] ml/min/1.73sqm Invalid Interpretation Code adjust Chemistry S Comment on above: Interpretive Data: GFR Population mean for , Non- Americans Ages 20-29 = 116 mL/min/1.73 sq.m. Ages 30-39 = 107 mL/min/1.73 sq.m. Ages 40-49 = 99 mL/min/1.73 sq.m. Ages 50-59 = 93 mL/min/1.73 sq.m. Ages 60-69 = 85 mL/min/1.73 sq.m. Ages 70+ = 75 mL/min/1.73 sq.m. Chronic Kidney Disease: Less than 60 mL/min/1.73 square meters End Stage Renal Disease: Less than 15 mL/min/1.73 square meters Glucose [Mass/Vol] 167 mg/dL High 82 - 115 mg/dL AH ADM SS Hematocrit (Bld) [Volume fraction] 44.7 % Normal 40.0 - 52.0 % AH Workflow SS Hemoglobin (Bld) [Mass/Vol] 15.1 G/dL Normal 13.0 - 17.5 G/dL AH Workflow SS Lymphocytes (Bld) [#/Vol] 1.1 103/mcL Normal 0.9 - 4.3 10^3/mcL AH Workflow SS Lymphocytes/100 WBC (Bld) 8.3 % Low 20.0 - 40.0 % AH Workflow SS MCH (RBC) [Entitic mass] 32.4 pg Normal 27.0 - 33.0 pg AH Workflow SS MCHC 33.7 G/dL Normal 32.0 - 36.0 G/dL AH Workflow SS MCV (RBC) [Entitic vol] 96.1 fL Normal 81.0 - 100.0 fL AH Workflow SS Monocytes (Bld) [#/Vol] 1.1 103/mcL Normal 0.1 - 1.4 10^3/mcL AH Workflow SS Monocytes/100 WBC (Bld) 7.8 % Normal 2.0 - 13.0 % AH Workflow SS Neutrophils (Bld) [#/Vol] 11.4 103/mcL High 2.3 - 8.1 10^3/mcL AH Workflow SS Neutrophils/100 WBC (Bld) 83.9 % High 50.0 - 75.0 % AH Workflow SS Platelet mean volume (Bld) [Entitic vol] 9.9 fL Normal 6.4 - 10.5 fL AH Workflow SS Platelets (Bld) [#/Vol] 217 103/mcL Normal 150 - 450 10^3/mcL AH Workflow SS Potassium [Moles/Vol] 4.5 mmol/L Normal 3.5 - 5.0 mEq/L AH ADM SS RBC (Bld) [#/Vol] 4.65 106/mcL Normal 4.50 - 6.0 0 10^6/mcL AH Workflow SS Sodium [Moles/Vol] 135 mmol/L Low 136 - 145 mEq/L AH ADM SS Urea nitrogen [Mass/Vol] 30.0 mg/dL High 8.0 - 22.0 mg/dL ADM SS Urea nitrogen/Creatinine [Mass ratio] 42.3 ratio High 10.0 - 22.0 ratio ADM SS WBC (Bld) [#/Vol] 13.5 103/mcL High 4.5 - 10.8 10^3/mcL AH Workflow SS PROon 12-07-2023 INR Coag (PPP) [Relative time] 3.2 {INR} Normal [facility] Comment on above: Order Comment: order ed secondary to warfarin order Result Comment: [employer] (CHEST, 1991, 102:312S-25S) recommended therapeutic range for oral anticoagulant therapy is: LOW RISK: Prophylaxis of venous thrombosis INR: 2.0-3.0 Treatment of pulmonary embolism 2.0-3.0 Prevention of systemic embolism 2.0-3.0 HIGH RISK: Mechanical prosthetic valves 2.5-3.5 Performed By: #### A DIFF, CBC, ANEU #### [address] [address] PT Coag (PPP) [Time] 37.3 s High 9.0-14.4 [facility] Comment on above: Order Comment: order ed secondary to warfarin order Result Comment: Effe ctive 09/18/07, Protime results may be affected by some antibiotics (i.e. Ciprofloxacin, Azithromycin, Bactrim) which may potentiate the action of oral anticoagulants, with further increases in Protime/INR. Performed By: #### A DIFF, CBC, ANEU #### [id number] [place] [address] 12-06-2023 INR Coag (PPP) [Relative time] 2.1 {INR} Normal [facility] Comment on above: Order Comment: order ed secondary to warfarin order Result Comment: [employer] (CHEST, 1991, 102:312S-25S) recommended therapeutic range for oral anticoagulant therapy is: LOW RISK: Prophylaxis of venous thrombosis INR: 2.0-3.0 Treatment of pulmonary embolism 2.0-3.0 Prevention of systemic embolism 2.0-3.0 HIGH RISK: Mechanical prosthetic valves 2.5-3.5 Performed By: #### P RO #### [facility] [address] [place] [address] PT Coag (PPP) [Time] 24.4 s High 9.0-14.4 [facility] Comment on above: Order Comment: order ed secondary to warfarin order Result Comment: Effe ctive 09/18/07, Protime results may be affected by some antibiotics (i.e. Ciprofloxacin, Azithromycin, Bactrim) which may potentiate the action of oral anticoagulants, with further increases in Protime/INR. Performed By: #### P RO #### [facility] [address] [place] [id number] MRI SPINE CERVICAL W/O CONTR Era 12-05-2023 MRI SPINE CERVICAL W/O CONTRAST ORIGINAL HISTORY: Right upper extremity weakness, fracture. COMPARISON: CT 30 November 2023 TECHNIQUE: 1. Sagittal T1-weighted images. 2. Sagittal T2-weighted images with and without fat saturation. 3. Axial T1 and T2-weighted images. 4. Axial and sagittal T2*-weighted images. The patient was unable to tolerate further imaging. FINDINGS: There is a displaced type 2 fracture, with a proximally 5 mm of anterior displacement of the superior fragment. The C1 ring is similarly anteriorly displaced relative to the more inferior posterior elements. There is impingement of the dorsal aspect of the cord at the level of the fracture there is edema in the cord just above the impingement. The tectorial membrane is abnormal or disrupted on the left. There is abnormal signal in the apical ligament. There is abnormal signal in the peripheral transverse ligament versus a small amount of fluid between the transverse ligament and tectorial membrane. There is straightening of the more inferior cervical spine. There is various disc desiccation and disc space narrowing throughout. And there is a focal syrinx extending from C5-C6 through C7-T1, measuring up to 3-4 mm in diameter. There is no stenosis. IMPRESSION: Type 2 C2 fracture, with anterior dislocation of the dens and C1 ring; there is impingement of the dorsal aspect of the cord and there is associated cord edema. Abnormal signal in the apical and transverse ligaments as well as the left tectorial membrane at the level of the fracture. 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 Mild multilevel degenerative changes; no stenosis Interpreted by: Jayy Whitmore MD Preliminary Report By: Jayy Whitmore MD Electronically signed By Jayy Whitmore MD Dictated Date: 12/05/2023 2:39:59 PM Prelim Date: 12/05/2023 2:59:12 PM Sign Date: 12/05/2023 2:59:12 PM Ordering Provider: EDSON VO [facility] MAIN PROon 12-05-2023 INR Coag (PPP) [Relative time] 1.8 {INR} Normal [facility] Comment on above: Order Comment: order ed secondary to warfarin order Result Comment: [employer] (CHEST, 1992, 102:312S-25S) recommended therapeutic range for oral anticoagulant therapy is: LOW RISK: Prophylaxis of venous thrombosis INR: 2.0-3.0 Treatment of pulmonary embolism 2.0-3.0 Prevention of systemic embolism 2.0-3.0 HIGH RISK: Mechanical prosthetic valves 2.5-3.5 Performed By: #### P RO #### [address] [address] PT Coag (PPP) [Time] 21.1 s High 9.0-14.4 [facility] Comment on above: Order Comment: order ed secondary to warfarin order Result Comment: Effe ctive 09/18/07, Protime results may be affected by some antibiotics (i.e. Ciprofloxacin, Azithromycin, Bactrim) which may potentiate the action of oral anticoagulants, with further increases in Protime/INR. Performed By: #### P RO #### [address] [address] .Auto Diffon 12-04-2023 Basophil, Absolute 0.0 10 3/mcL Normal 0.0-0.3 [facility] Comment on above: Performed By: #### P RO #### [address] [address] Basophils/100 WBC (Bld) 0.4 % Normal 0.0-2.5 [facility] Comment on above: Performed By: #### P RO #### [address] [address] Eosinophil, Absolute 0.1 10 3/mcL Normal 0.0-0.7 [facility] Comment on above: Performed By: #### P RO #### [address] [address] Eosinophils/100 WBC (Bld) 1.0 % Normal 0.0-6.0 [facility] Comment on above: Performed By: #### P RO #### [address] [address] Lymphocyte, Absolute 1.7 10 3/mcL Normal 0.9-4.3 [facility] Comment on above: Performed By: #### P RO #### [facility] [address] [place] [address] Lymphocytes/100 WBC (Bld) 12.8 % Low 20.0-40.0 [facility] Comment on above: Performed By: #### P RO #### [facility] [address] [place] [address] Monocyte, Absolute 1.7 10 3/mcL High 0.1-1.4 [facility] Comment on above: Performed By: #### P RO #### [address] [address] Monocytes/100 WBC (Bld) 13.4 % High 2.0-13.0 [facility] Comment on above: Performed By: #### P RO #### [address] [address] Neutrophils/100 WBC (Bld) 72.4 % Normal 50.0-75.0 [facility] Comment on above: Performed By: #### P RO #### [address] [address] .GFRon 12-04-2023 GFR >60 Normal [facility] Comment on above: Result Comment: GFR Population mean for , Non- Americans Ages 20-29 = 116 mL/min/1.73 sq.m. Ages 30-39 = 107 mL/min/1.73 sq.m. Ages 40-49 = 99 mL/min/1.73 sq.m. Ages 50-59 = 93 mL/min/1.73 sq.m. Ages 60-69 = 85 mL/min/1.73 sq.m. Ages 70+ = 75 mL/min/1.73 sq.m. Chronic Kidney Disease: Less than 60 mL/min/1.73 square meters End Stage Renal Disease: Less than 15 mL/min/1.73 square meters Performed By: #### P RO #### [address] [address] GFR Non- >60 Normal [facility] Comment on above: Result Comment: GFR Population mean for , Non- Americans Ages 20-29 = 116 mL/min/1.73 sq.m. Ages 30-39 = 107 mL/min/1.73 sq.m. Ages 40-49 = 99 mL/min/1.73 sq.m. Ages 50-59 = 93 mL/min/1.73 sq.m. Ages 60-69 = 85 mL/min/1.73 sq.m. Ages 70+ = 75 mL/min/1.73 sq.m. Chronic Kidney Disease: Less than 60 mL/min/1.73 square meters End Stage Renal Disease: Less than 15 mL/min/1.73 square meters Performed By: #### P RO #### [address] [address] .NEUABSon 12-04-2023 Neutrophil, Absolute 9.3 10 3/mcL High 2.3-8.1 [facility] Comment on above: Performed By: #### P RO #### [address] [address] BMPon 12-04-2023 BUN/Creatinine Ratio 28.6 ratio High 10.0-22.0 [facility] Comment on above: Performed By: #### P RO #### [address] [address] Calcium [Mass/Vol] 9.2 mg/dL Normal 8.7-10.4 [facility] Comment on above: Performed By: #### P RO #### [address] [address] Chloride [Moles/Vol] 100 mmol/L Normal 98-110 [facility] Comment on above: Performed By: #### P RO #### [address] [address] CO2 [Moles/Vol] 28 mmol/L Normal 22-32 [facility] Comment on above: Performed By: #### P RO #### [address] [address] Creatinine [Mass/Vol] 0.70 mg/dL Normal 0.60-1.40 [facility] Comment on above: Result Comment: Test ing performed on [employer] analyzer using enzymatic creatinine methodology. Performed By: #### P RO #### [place] [id number] Electrolyte Balance 7.0 mEq/L Normal 4.0-15.[address] [facility] Comment on above: Performed By: #### P RO #### [place] [phone] Glucose [Mass/Vol] 132 mg/dL High 82-115 [facility] MA[facility] Comment on above: Performed By: #### P RO #### [place] [phone] Potassium [Moles/Vol] 4.4 mmol/L Normal 3.5-5.0 [facility] Comment on above: Performed By: #### P RO #### [place] [address] Sodium [Moles/Vol] 135 mmol/L Low 136-145 [facility] MA[facility] Comment on above: Performed By: #### P RO #### [place] [address] Urea nitrogen [Mass/Vol] 20.0 mg/dL Normal 8.0-22.0 [facility] Comment on above: Performed By: #### P RO #### [place] [address] CBCon 12-04-2023 Erythrocyte distribution width (RBC) [Ratio] 13.5 % Normal 11.5-15.5 [facility] Comment on above: Performed By: #### P RO #### [place] [phone] Hematocrit (Bld) [Volume fraction] 44.7 % Normal 40.0-52.0 [facility] Comment on above: Performed By: #### P RO #### [place] [id number] Hgb 14.7 G/dL Normal 13.0-17.5 [facility] Comment on above: Performed By: #### P RO #### [place] [phone] MCH (RBC) [Entitic mass] 32.5 pg Normal 27.0-33.0 [facility] Comment on above: Performed By: #### P RO #### [place] [address] MCHC 33.0 G/dL Normal 32.0-36.0 [facility] Comment on above: Performed By: #### P RO #### [place] [address] MCV (RBC) [Entitic vol] 98.5 fL Normal 81.0-100.0 [facility] Comment on above: Performed By: #### P RO #### [place] [address] Platelet 167 10 3/mcL Normal 150-450 [facility] Comment on above: Performed By: #### P RO #### [place] [address] Platelet mean volume (Bld) [Entitic vol] 9.8 fL Normal 6.4-10.5 [facility] Comment on above: Performed By: #### P RO #### [place] [address] RBC 4.54 10 6/mcL Normal 4.50-6.00 [facility] Comment on above: Performed By: #### P RO #### [place] [address] WBC 12.9 10 3/mcL High 4.5-10.8 [facility] Comment on above: Performed By: #### P RO #### [place] [address] LABORATORYOrdered By: Ayanna James on 12-04-2023 Appearance (U) Clear 4 (12/04/23 1:14 PM) Normal Clear AH Auto Urine SS Comment on above: Result Comment: Spec imen volumes less than 5 ml may not yield chemical or microscopic results truly reflective of renal function or general metabolic status. Bacteria LM.HPF (Urine sed) [#/Area] Trace /HPF Invalid Interpretation Code Negative AH Auto Urine SS Bilirubin Ql (U) Negative (12/04/23 1:14 PM) Normal Neg-Trace AH Auto Urine SS Color (U) Dark Yellow (12/04/23 1:14 PM) Normal AH Auto Urine SS Glucose Test strip (U) [Mass/Vol] Negative Normal Negative AH Auto Urine SS Hemoglobin Auto test strip (U) [Mass/Vol] Moderate *ABN* (12/04/23 1:14 PM) Invalid Interpretation Code Neg-Trace AH Auto Urine SS Ketones Ql (U) Negative Normal Neg-Trace AH Auto Ur ine SS UA Leuk Est Small *ABN* (12/04/23 1:14 PM) Invalid Interpretation Code Negative AH Auto Urine SS UA Mucous Trace /HPF Normal AH Auto Urine SS UA Nitrite Negative (12/04/23 1:14 PM) Normal Negative AH Auto Urine SS UA pH 5.5 (12/04/23 1:14 PM) Normal 5.0 - 8.0 AH Auto Urine SS UA Protein 100 mg/dL Invalid Interpretation Code Negative AH Auto Urine SS UA RBC 10-20 /HPF Invalid Interpretation Code 0-2 AH Auto Urine SS UA Spec Grav >=1.030 *ABN* (12/04/23 1:14 PM) Invalid Interpretation Code 1.006-1.029 AH Auto Urine SS UA Specimen Type Calixto Catheter (12/04/23 1:14 PM) Normal AH Auto Urine SS UA Squam Epithelial 0-2 /HPF Normal 0-20 AH Au to Urine SS UA Urobilinogen 1.0 E.U./dL Normal 0.2-1.0 AH Auto Urine SS WBC LM.HPF (Urine sed) [#/Area] 0-2 /HPF Normal 0-5 AH Auto Urine SS LABORATORYOrdered By: SYSTEM SYSTEM on 12-04-2023 Basophils (Bld) [#/Vol] 0.0 103/mcL Normal 0.0 - 0.3 10^3/mcL AH Workflow SS Basophils/100 WBC (Bld) 0.4 % Normal 0.0 - 2.5 % AH Workflow SS Calcium [Mass/Vol] 9.2 mg/dL Normal 8.7 - 10. 4 mg/dL AH ADM SS Chloride [Moles/Vol] 100 mmol/L Normal 98 - 11 0 mEq/L AH ADM SS CO2 [Moles/Vol] 28 mmol/L Normal 22 - 32 mEq/L AH ADM SS Creatinine [Mass/Vol] 0.70 mg/dL Normal 0.60 - 1.40 mg/dL AH ADM SS Comment on above: Interpretive Data: T esting performed on [employer] analyzer using enzymatic creatinine methodology. Electrolyte Balance 7.0 mEq/L Normal 4.0 - 15 .0 mEq/L ADM SS Eosinophils (Bld) [#/Vol] 0.1 103/mcL Normal 0.0 - 0.7 10^3/mcL AH Workflow SS Eosinophils/100 WBC (Bld) 1.0 % Normal 0.0 - 6.0 % AH Workflow SS Erythrocyte distribution width (RBC) [Ratio] 13.5 % Normal 11.5 - 15.5 % AH Workflow SS GFR/1.73 sq M.predicted among blacks MDRD (S/P/Bld) [Vol rate/Area] ml/min/1.73sqm Invalid Interpretation Code adjust Chemistry S Comment on above: Interpretive Data: GFR Population mean for , Non- Americans Ages 20-29 = 116 mL/min/1.73 sq.m. Ages 30-39 = 107 mL/min/1.73 sq.m. Ages 40-49 = 99 mL/min/1.73 sq.m. Ages 50-59 = 93 mL/min/1.73 sq.m. Ages 60-69 = 85 mL/min/1.73 sq.m. Ages 70+ = 75 mL/min/1.73 sq.m. Chronic Kidney Disease: Less than 60 mL/min/1.73 square meters End Stage Renal Disease: Less than 15 mL/min/1.73 square meters GFR/1.73 sq M.predicted among non-blacks MDRD (S/P/Bld) [Vol rate/Area] ml/min/1.73sqm Invalid Interpretation Code adjust Chemistry S Comment on above: Interpretive Data: GFR Population mean for , Non- Americans Ages 20-29 = 116 mL/min/1.73 sq.m. Ages 30-39 = 107 mL/min/1.73 sq.m. Ages 40-49 = 99 mL/min/1.73 sq.m. Ages 50-59 = 93 mL/min/1.73 sq.m. Ages 60-69 = 85 mL/min/1.73 sq.m. Ages 70+ = 75 mL/min/1.73 sq.m. Chronic Kidney Disease: Less than 60 mL/min/1.73 square meters End Stage Renal Disease: Less than 15 mL/min/1.73 square meters Glucose [Mass/Vol] 132 mg/dL High 82 - 115 mg/dL ADM SS Hematocrit (Bld) [Volume fraction] 44.7 % Normal 40.0 - 52.0 % AH Workflow SS Hemoglobin (Bld) [Mass/Vol] 14.7 G/dL Normal 13.0 - 17.5 G/dL AH Workflow SS Lymphocytes (Bld) [#/Vol] 1.7 103/mcL Normal 0.9 - 4.3 10^3/mcL AH Workflow SS Lymphocytes/100 WBC (Bld) 12.8 % Low 20.0 - 40.0 % AH Workflow SS MCH (RBC) [Entitic mass] 32.5 pg Normal 27.0 - 33.0 pg AH Workflow SS MCHC 33.0 G/dL Normal 32.0 - 36.0 G/dL AH Workflow SS MCV (RBC) [Entitic vol] 98.5 fL Normal 81.0 - 100.0 fL AH Workflow SS Monocytes (Bld) [#/Vol] 1.7 103/mcL High 0.1 - 1.4 10^3/mcL AH Workflow SS Monocytes/100 WBC (Bld) 13.4 % High 2.0 - 13.0 % AH Workflow SS Neutrophils (Bld) [#/Vol] 9.3 103/mcL High 2.3 - 8.1 10^3/mcL AH Workflow SS Neutrophils/100 WBC (Bld) 72.4 % Normal 50.0 - 75.0 % AH Workflow SS Platelet mean volume (Bld) [Entitic vol] 9.8 fL Normal 6.4 - 10.5 fL AH Workflow SS Platelets (Bld) [#/Vol] 167 103/mcL Normal 150 - 450 10^3/mcL AH Workflow SS Potassium [Moles/Vol] 4.4 mmol/L Normal 3.5 - 5.0 mEq/L AH ADM SS RBC (Bld) [#/Vol] 4.54 106/mcL Normal 4.50 - 6.0 0 10^6/mcL AH Workflow SS Sodium [Moles/Vol] 135 mmol/L Low 136 - 145 mEq/L ADM SS Urea nitrogen [Mass/Vol] 20.0 mg/dL Normal 8.0 - 22.0 mg/dL ADM SS Urea nitrogen/Creatinine [Mass ratio] 28.6 ratio High 10.0 - 22.0 ratio AH ADM SS WBC (Bld) [#/Vol] 12.9 103/mcL High 4.5 - 10.8 10^3/mcL AH Workflow SS PROon 12-04-2023 INR Coag (PPP) [Relative time] 1.5 {INR} Normal [facility] Comment on above: Order Comment: order ed secondary to warfarin order Result Comment: The [employer] (CHEST, 1992, 102:312S-25S) recommended therapeutic range for oral anticoagulant therapy is: LOW RISK: Prophylaxis of venous thrombosis INR: 2.0-3.0 Treatment of pulmonary embolism 2.0-3.0 Prevention of systemic embolism 2.0-3.0 HIGH RISK: Mechanical prosthetic valves 2.5-3.5 Performed By: #### P RO #### [place] [address] PT Coag (PPP) [Time] 17.8 s High 9.0-14.4 [facility] Comment on above: Order Comment: order ed secondary to warfarin order Result Comment: Effe ctive 09/18/07, Protime results may be affected by some antibiotics (i.e. Ciprofloxacin, Azithromycin, Bactrim) which may potentiate the action of oral anticoagulants, with further increases in Protime/INR. Performed By: #### P RO #### [place] [address] UAon 12-04-2023 Color (U) Dark Yellow Normal [facility] Comment on above: Performed By: #### P RO #### [place] [id number] Glucose (U) [Mass/Vol] Negative Normal Negative [facility] Comment on above: Performed By: #### P RO #### [place] [id number] Ketones Ql (U) Negative Normal Neg-Trace [facility] Comment on above: Performed By: #### P RO #### [place] [address] UA Appear Clear Normal Clear [facility] Comment on above: Result Comment: Spec imen volumes less than 5 ml may not yield chemical or microscopic results truly reflective of renal function or general metabolic status. Performed By: #### P RO #### [place] [address] UA Blood Moderate Abnormal Neg-Trace [facility] Comment on above: Performed By: #### P RO #### [place] [address] UA Leuk Est Small Abnormal Negative [facility] Comment on above: Performed By: #### P RO #### [place] [address] UA Nitrite Negative Normal Negative [facility] Comment on above: Performed By: #### P RO #### [place] [address] UA pH 5.5 Normal 5.0 - 8.0 [facility] Comment on above: Performed By: #### P RO #### [place] [address] UA Protein 100 mg/dL Abnormal Negative [facility] Comment on above: Performed By: #### P RO #### [place] [address] UA Spec Grav >=1.030 Abnormal 1.006-1.029 [facility] Comment on above: Performed By: #### P RO #### [place] [address] UA Specimen Type Calixto Catheter Normal [facility] Comment on above: Performed By: #### P RO #### [place] [address] UA Urobilinogen 1.0 E.U./dL Normal 0.2-1.0 [facility] Comment on above: Performed By: #### P RO #### [place] [address] Urobilinogen (U) [Mass/Vol] Negative Normal Neg-Trace [facility] Comment on above: Performed By: #### P RO #### [place] [address] UAMICon 12-04-2023 UA Bacteria Trace Abnormal Negative [facility] Comment on above: Performed By: #### P RO #### [facility] [address] [place] [address] UA Mucous Trace Normal [facility] Comment on above: Performed By: #### P RO #### [facility] [address] [place] [address] UA RBC 10-20 Abnormal 0-2 [facility] Comment on above: Performed By: #### P RO #### [facility] [address] [place] [address] UA Squam Epithelial 0-2 Normal 0-[address] [facility] Comment on above: Performed By: #### P RO #### [facility] [address] [place] [address] UA WBC 0-2 Normal 0-5 [facility] Comment on above: Performed By: #### P RO #### [place] [address] XR CHEST 1 VIEWon 12-04-2023 XR CHEST 1 VIEW ORIGINAL EXAMINATION: ONE XRAY VIEW OF THE CHEST 12/04/2023 9:23 am COMPARISON: CT chest 11/30/2023 HISTORY: ORDERING SYSTEM PROVIDED HISTORY: Reason for Exam: fever FINDINGS: Non optimal inspiratory effort is noted. There is prominence to the interstitial markings of both lungs. There is no cardiomegaly, pulmonary edema or pneumothorax. The skeletal elements appear intact. IMPRESSION: 1. Mild chronic bronchitis. 2. No acute alveolar process. Interpreted by: Joseph Wilburn DO Preliminary Report By: Joseph Wilburn DO Electronically signed By Joseph Wilburn DO Dictated Date: 12/04/2023 11:13:26 AM Prelim Date: 12/04/2023 11:14:59 AM Sign Date: 12/04/2023 11:14:59 AM Ordering Provider: ABBEY SANDERS [facility] MAIN LABORATORYOrdered By: Ayanna James on 12-03-2023 Appearance (U) Clear (12/03/23 7:09 PM) Normal Clear AH Auto Urine SS Bilirubin Ql (U) Negative (12/03/23 7:09 PM) Normal Neg-Trace AH Auto Urine SS Color (U) Yellow (12/03/23 7:09 PM) Normal AH Auto Urine SS Glucose Test strip (U) [Mass/Vol] Negative Normal Negative AH Auto Urine SS Hemoglobin Auto test strip (U) [Mass/Vol] Negative (12/03/23 7:09 PM) Normal Neg-Trace AH Auto Urine SS Ketones Ql (U) Negative Normal Neg-Trace AH Auto Ur ine SS UA Leuk Est Negative (12/03/23 7:09 PM) Normal Negative AH Auto Urine SS UA Nitrite Negative (12/03/23 7:09 PM) Normal Negative AH Auto Urine SS UA pH 7.0 (12/03/23 7:09 PM) Normal 5.0 - 8.0 AH Auto Urine SS UA Protein Trace mg/dL Normal Negative AH Auto Urine SS UA Spec Grav 1.010 (12/03/23 7:09 PM) Normal 1.006-1.029 AH Auto Urine SS UA Specimen Type Calixto Catheter (12/03/23 7:09 PM) Normal AH Auto Urine SS UA Urobilinogen 1.0 E.U./dL Normal 0.2-1.0 Auto Urine SS No Panel Informationon 12-02 Microscopic examination of blood, culture Blood Culture: No Growth at 5 days. [facility] PROon 12-03-2023 INR Coag (PPP) [Relative time] 1.7 {INR} Normal [facility] Comment on above: Order Comment: order ed secondary to warfarin order Result Comment: The [employer] (CHEST, 1992, 102:312S-25S) recommended therapeutic range for oral anticoagulant therapy is: LOW RISK: Prophylaxis of venous thrombosis INR: 2.0-3.0 Treatment of pulmonary embolism 2.0-3.0 Prevention of systemic embolism 2.0-3.0 HIGH RISK: Mechanical prosthetic valves 2.5-3.5 Performed By: #### P RO #### [place] [address] PT Coag (PPP) [Time] 20.1 s High 9.0-14.4 [facility] Comment on above: Order Comment: order ed secondary to warfarin order Result Comment: Effe ctive 09/18/07, Protime results may be affected by some antibiotics (i.e. Ciprofloxacin, Azithromycin, Bactrim) which may potentiate the action of oral anticoagulants, with further increases in Protime/INR. Performed By: #### P RO #### [place] [address] UAon 12-03-2023 Color (U) Yellow Normal [facility] Comment on above: Performed By: #### U A #### [place] [address] Glucose (U) [Mass/Vol] Negative Normal Negative [facility] Comment on above: Performed By: #### U A #### [place] [address] Ketones Ql (U) Negative Normal Neg-Trace [facility] Comment on above: Performed By: #### U A #### [place] [address] UA Appear Clear Normal Clear [facility] Comment on above: Performed By: #### U A #### [place] [address] UA Blood Negative Normal Neg-Trace [facility] Comment on above: Performed By: #### U A #### [place] [address] UA Leuk Est Negative Normal Negative [facility] Comment on above: Performed By: #### U A #### [place] [address] UA Nitrite Negative Normal Negative [facility] Comment on above: Performed By: #### U A #### [place] [address] UA pH 7.0 Normal 5.0 - 8.0 [facility] Comment on above: Performed By: #### U A #### [place] [address] UA Protein Trace Normal Negative [facility] Comment on above: Performed By: #### U A #### [place] [address] UA Spec Grav 1.010 Normal 1.006-1.029 [facility] Comment on above: Performed By: #### U A #### [place] [address] UA Specimen Type Calixto Catheter Normal [facility] Comment on above: Performed By: #### U A #### [address] [address] UA Urobilinogen 1.0 E.U./dL Normal 0.2-1.0 [facility] Comment on above: Performed By: #### U A #### [place] [id number] Urobilinogen (U) [Mass/Vol] Negative Normal Neg-Trace [facility] Comment on above: Performed By: #### U A #### [address] [address] .Auto Diffon 12-02-2023 Basophil, Absolute 0.0 10 3/mcL Normal 0.0-0.3 [facility] Comment on above: Performed By: #### U A #### [address] [address] Basophils/100 WBC (Bld) 0.3 % Normal 0.0-2.5 [facility] Comment on above: Performed By: #### U A #### [address] [address] Eosinophil, Absolute 0.1 10 3/mcL Normal 0.0-0.7 [facility] Comment on above: Performed By: #### U A #### [address] [address] Eosinophils/100 WBC (Bld) 1.1 % Normal 0.0-6.0 [facility] Comment on above: Performed By: #### U A #### [address] [address] Lymphocyte, Absolute 1.4 10 3/mcL Normal 0.9-4.3 [facility] Comment on above: Performed By: #### U A #### [address] [address] Lymphocytes/100 WBC (Bld) 10.4 % Low 20.0-40.0 [facility] Comment on above: Performed By: #### U A #### [place] [id number] Monocyte, Absolute 1.7 10 3/mcL High 0.1-1.4 [facility] Comment on above: Performed By: #### U A #### [facility] [address] [place] [address] Monocytes/100 WBC (Bld) 12.9 % Normal 2.0-13.0 [facility] Comment on above: Performed By: #### U A #### [address] [address] Neutrophils/100 WBC (Bld) 75.3 % High 50.0-75.0 [facility] Comment on above: Performed By: #### U A #### [address] [address] .GFRon 12-02-2023 GFR >60 [facility] Comment on above: Result Comment: GFR Population mean for , Non- Americans Ages 20-29 = 116 mL/min/1.73 sq.m. Ages 30-39 = 107 mL/min/1.73 sq.m. Ages 40-49 = 99 mL/min/1.73 sq.m. Ages 50-59 = 93 mL/min/1.73 sq.m. Ages 60-69 = 85 mL/min/1.73 sq.m. Ages 70+ = 75 mL/min/1.73 sq.m. Chronic Kidney Disease: Less than 60 mL/min/1.73 square meters End Stage Renal Disease: Less than 15 mL/min/1.73 square meters Performed By: #### U A #### [address] [address] GFR Non- >60 [facility] Comment on above: Result Comment: GFR Population mean for , Non- Americans Ages 20-29 = 116 mL/min/1.73 sq.m. Ages 30-39 = 107 mL/min/1.73 sq.m. Ages 40-49 = 99 mL/min/1.73 sq.m. Ages 50-59 = 93 mL/min/1.73 sq.m. Ages 60-69 = 85 mL/min/1.73 sq.m. Ages 70+ = 75 mL/min/1.73 sq.m. Chronic Kidney Disease: Less than 60 mL/min/1.73 square meters End Stage Renal Disease: Less than 15 mL/min/1.73 square meters Performed By: #### U A #### [address] [address] .NEUABSon 12-02-2023 Neutrophil, Absolute 9.9 10 3/mcL High 2.3-8.1 [facility] Comment on above: Performed By: #### U A #### [address] [address] BMPon 12-02-2023 BUN/Creatinine Ratio 21.8 ratio Normal 10.0-22.0 [facility] Comment on above: Performed By: #### U A #### [place] [id number] Calcium [Mass/Vol] 8.9 mg/dL Normal 8.7-10.4 [facility] Comment on above: Performed By: #### U A #### [place] [phone] Chloride [Moles/Vol] 100 mmol/L Normal 98-110 [facility] Comment on above: Performed By: #### U A #### [address] [address] CO2 [Moles/Vol] 29 mmol/L Normal 22-32 [facility] Comment on above: Performed By: #### U A #### [place] [id number] Creatinine [Mass/Vol] 0.87 mg/dL Normal 0.60-1.40 [facility] Comment on above: Result Comment: Test ing performed on [employer] analyzer using enzymatic creatinine methodology. Performed By: #### U A #### [place] [id number] Electrolyte Balance 7.0 mEq/L Normal 4.0-15.[address] [facility] Comment on above: Performed By: #### U A #### [place] [id number] Glucose [Mass/Vol] 117 mg/dL High 82-115 [facility] Comment on above: Performed By: #### U A #### [place] [id number] Potassium [Moles/Vol] 4.2 mmol/L Normal 3.5-5.0 [facility] Comment on above: Performed By: #### U A #### [place] [id number] Sodium [Moles/Vol] 136 mmol/L Normal 136-145 [facility] Comment on above: Performed By: #### U A #### [place] [id number] Urea nitrogen [Mass/Vol] 19.0 mg/dL Normal 8.0-22.0 [facility] Comment on above: Performed By: #### U A #### [place] [id number] CBCon 12-02-2023 Erythrocyte distribution width (RBC) [Ratio] 13.2 % Normal 11.5-15.5 [facility] Comment on above: Performed By: #### U A #### [place] [id number] Hematocrit (Bld) [Volume fraction] 42.7 % Normal 40.0-52.0 [facility] Comment on above: Performed By: #### U A #### [place] [id number] Hgb 14.4 G/dL Normal 13.0-17.5 [facility] Comment on above: Performed By: #### U A #### [place] [id number] MCH (RBC) [Entitic mass] 32.7 pg Normal 27.0-33.0 [facility] Comment on above: Performed By: #### U A #### [place] [id number] MCHC 33.7 G/dL Normal 32.0-36.0 [facility] Comment on above: Performed By: #### U A #### [place] [id number] MCV (RBC) [Entitic vol] 96.9 fL Normal 81.0-100.0 [facility] Comment on above: Performed By: #### U A #### [place] [id number] [address] [place], [place] [id number] Platelet 145 10 3/mcL Low 150-450 [facility] Comment on above: Performed By: #### U A #### [facility] [address] [place] [address] Platelet mean volume (Bld) [Entitic vol] 10.3 fL Normal 6.4-10.5 [facility] Comment on above: Performed By: #### U A #### [place] [address] RBC 4.41 10 6/mcL Low 4.50-6.00 [facility] Comment on above: Performed By: #### U A #### [place] [address] WBC 13.1 10 3/mcL High 4.5-10.8 [facility] Comment on above: Performed By: #### U A #### [place] [address] LABORATORYOrdered By: SYSTEM SYSTEM on 12-02-2023 Basophils (Bld) [#/Vol] 0.0 103/mcL Normal 0.0 - 0.3 10^3/mcL AH Workflow SS Basophils/100 WBC (Bld) 0.3 % Normal 0.0 - 2.5 % AH Workflow SS Calcium [Mass/Vol] 8.9 mg/dL Normal 8.7 - 10. 4 mg/dL ADM SS Chloride [Moles/Vol] 100 mmol/L Normal 98 - 11 0 mEq/L ADM SS CO2 [Moles/Vol] 29 mmol/L Normal 22 - 32 mEq/L ADM SS Creatinine [Mass/Vol] 0.87 mg/dL Normal 0.60 - 1.40 mg/dL ADM SS Comment on above: Interpretive Data: T esting performed on [employer] analyzer using enzymatic creatinine methodology. Electrolyte Balance 7.0 mEq/L Normal 4.0 - 15 .0 mEq/L ADM SS Eosinophils (Bld) [#/Vol] 0.1 103/mcL Normal 0.0 - 0.7 10^3/mcL AH Workflow SS Eosinophils/100 WBC (Bld) 1.1 % Normal 0.0 - 6.0 % Workflow SS Erythrocyte distribution width (RBC) [Ratio] 13.2 % Normal 11.5 - 15.5 % Workflow SS GFR/1.73 sq M.predicted among blacks MDRD (S/P/Bld) [Vol rate/Area] ml/min/1.73sqm Invalid Interpretation Code Chemistry S Comment on above: Interpretive Data: GFR Population mean for , Non- Americans Ages 20-29 = 116 mL/min/1.73 sq.m. Ages 30-39 = 107 mL/min/1.73 sq.m. Ages 40-49 = 99 mL/min/1.73 sq.m. Ages 50-59 = 93 mL/min/1.73 sq.m. Ages 60-69 = 85 mL/min/1.73 sq.m. Ages 70+ = 75 mL/min/1.73 sq.m. Chronic Kidney Disease: Less than 60 mL/min/1.73 square meters End Stage Renal Disease: Less than 15 mL/min/1.73 square meters GFR/1.73 sq M.predicted among non-blacks MDRD (S/P/Bld) [Vol rate/Area] ml/min/1.73sqm Invalid Interpretation Code Chemistry S Comment on above: Interpretive Data: GFR Population mean for , Non- Americans Ages 20-29 = 116 mL/min/1.73 sq.m. Ages 30-39 = 107 mL/min/1.73 sq.m. Ages 40-49 = 99 mL/min/1.73 sq.m. Ages 50-59 = 93 mL/min/1.73 sq.m. Ages 60-69 = 85 mL/min/1.73 sq.m. Ages 70+ = 75 mL/min/1.73 sq.m. Chronic Kidney Disease: Less than 60 mL/min/1.73 square meters End Stage Renal Disease: Less than 15 mL/min/1.73 square meters Glucose [Mass/Vol] 117 mg/dL High 82 - 115 mg/dL ADM SS Hematocrit (Bld) [Volume fraction] 42.7 % Normal 40.0 - 52.0 % Workflow SS Hemoglobin (Bld) [Mass/Vol] 14.4 G/dL Normal 13.0 - 17.5 G/dL AH Workflow SS Lymphocytes (Bld) [#/Vol] 1.4 103/mcL Normal 0.9 - 4.3 10^3/mcL AH Workflow SS Lymphocytes/100 WBC (Bld) 10.4 % Low 20.0 - 40.0 % AH Workflow SS MCH (RBC) [Entitic mass] 32.7 pg Normal 27.0 - 33.0 pg AH Workflow SS MCHC 33.7 G/dL Normal 32.0 - 36.0 G/dL AH Workflow SS MCV (RBC) [Entitic vol] 96.9 fL Normal 81.0 - 100.0 fL AH Workflow SS Monocytes (Bld) [#/Vol] 1.7 103/mcL High 0.1 - 1.4 10^3/mcL AH Workflow SS Monocytes/100 WBC (Bld) 12.9 % Normal 2.0 - 13.0 % AH Workflow SS Neutrophils (Bld) [#/Vol] 9.9 103/mcL High 2.3 - 8.1 10^3/mcL AH Workflow SS Neutrophils/100 WBC (Bld) 75.3 % High 50.0 - 75.0 % AH Workflow SS Platelet mean volume (Bld) [Entitic vol] 10.3 fL Normal 6.4 - 10.5 fL AH Workflow SS Platelets (Bld) [#/Vol] 145 103/mcL Low 150 - 450 10^3/mcL AH Workflow SS Potassium [Moles/Vol] 4.2 mmol/L Normal 3.5 - 5.0 mEq/L AH ADM SS RBC (Bld) [#/Vol] 4.41 106/mcL Low 4.50 - 6.0 0 10^6/mcL AH Workflow SS Sodium [Moles/Vol] 136 mmol/L Normal 136 - 145 mEq/L ADM SS Urea nitrogen [Mass/Vol] 19.0 mg/dL Normal 8.0 - 22.0 mg/dL ADM SS Urea nitrogen/Creatinine [Mass ratio] 21.8 ratio Normal 10.0 - 22.0 ratio ADM SS WBC (Bld) [#/Vol] 13.1 103/mcL High 4.5 - 10.8 10^3/mcL Workflow SS PROon 12-02-2023 INR Coag (PPP) [Relative time] 2.2 {INR} Normal [facility] Comment on above: Result Comment: The [employer] (CHEST, 1991, 102:312S-25S) recommended therapeutic range for oral anticoagulant therapy is: LOW RISK: Prophylaxis of venous thrombosis INR: 2.0-3.0 Treatment of pulmonary embolism 2.0-3.0 Prevention of systemic embolism 2.0-3.0 HIGH RISK: Mechanical prosthetic valves 2.5-3.5 Performed By: #### U A #### [address] [address] PT Coag (PPP) [Time] 25.1 s High 9.0-14.4 [facility] Comment on above: Result Comment: Effe ctive 09/18/07, Protime results may be affected by some antibiotics (i.e. Ciprofloxacin, Azithromycin, Bactrim) which may potentiate the action of oral anticoagulants, with further increases in Protime/INR. Performed By: #### U A #### [address] [address] .Auto Diffon 12-01-2023 Basophil, Absolute 0.0 10 3/mcL Normal 0.0-0.3 [facility] Comment on above: Performed By: #### A DIFF, CBC, ANEU #### [address] [address] Basophils/100 WBC (Bld) 0.2 % Normal 0.0-2.5 [facility] Comment on above: Performed By: #### A DIFF, CBC, ANEU #### [address] [address] Eosinophil, Absolute 0.0 10 3/mcL Normal 0.0-0.7 [facility] Comment on above: Performed By: #### A DIFF, CBC, ANEU #### [address] [address] Eosinophils/100 WBC (Bld) 0.0 % Normal 0.0-6.0 [facility] Comment on above: Performed By: #### A DIFF, CBC, ANEU #### [address] [address] Lymphocyte, Absolute 1.1 10 3/mcL Normal 0.9-4.3 [facility] Comment on above: Performed By: #### A DIFF, CBC, ANEU #### [address] [address] Lymphocytes/100 WBC (Bld) 6.8 % Low 20.0-40.0 [facility] Comment on above: Performed By: #### A DIFF, CBC, ANEU #### [address] [address] Monocyte, Absolute 1.8 10 3/mcL High 0.1-1.4 [facility] Comment on above: Performed By: #### A DIFF, CBC, ANEU #### [address] [address] Monocytes/100 WBC (Bld) 11.2 % Normal 2.0-13.0 [facility] Comment on above: Performed By: #### A DIFF, CBC, ANEU #### [address] [address] Neutrophils/100 WBC (Bld) 81.8 % High 50.0-75.0 [facility] Comment on above: Performed By: #### A DIFF, CBC, ANEU #### [address] [address] .NEUABSon 12-01-2023 Neutrophil, Absolute 13.2 10 3/mcL High 2.3-8.1 [facility] Comment on above: Performed By: #### A DIFF, CBC, ANEU #### [address] [address] CBCon 12-01-2023 Erythrocyte distribution width (RBC) [Ratio] 13.2 % Normal 11.5-15.5 [facility] Comment on above: Performed By: #### A DIFF, CBC, ANEU #### [address] [address] Hematocrit (Bld) [Volume fraction] 46.5 % Normal 40.0-52.0 [facility] Comment on above: Performed By: #### A DIFF, CBC, ANEU #### [address] [address] Hgb 15.6 G/dL Normal 13.0-17.5 [facility] Comment on above: Performed By: #### A DIFF, CBC, ANEU #### [address] [address] MCH (RBC) [Entitic mass] 32.5 pg Normal 27.0-33.0 [facility] Comment on above: Performed By: #### A DIFF, CBC, ANEU #### [place] [id number] MCHC 33.5 G/dL Normal 32.0-36.0 [facility] Comment on above: Performed By: #### A DIFF, CBC, ANEU #### [place] [id number] MCV (RBC) [Entitic vol] 97.2 fL Normal 81.0-100.0 [facility] Comment on above: Performed By: #### A DIFF, CBC, ANEU #### [place] [address] Platelet 164 10 3/mcL Normal 150-450 [facility] Comment on above: Performed By: #### A DIFF, CBC, ANEU #### [place] [address] Platelet mean volume (Bld) [Entitic vol] 9.5 fL Normal 6.4-10.5 [facility] Comment on above: Performed By: #### A DIFF, CBC, ANEU #### [place] [address] RBC 4.78 10 6/mcL Normal 4.50-6.00 [facility] Comment on above: Performed By: #### A DIFF, CBC, ANEU #### [place] [id number] WBC 16.1 10 3/mcL High 4.5-10.8 [facility] Comment on above: Performed By: #### A DIFF, CBC, ANEU #### [place] [address] PROon 12-01-2023 INR Coag (PPP) [Relative time] 2.3 {INR} Normal [facility] Comment on above: Order Comment: order ed secondary to warfarin order Result Comment: The [employer] (CHEST, 1992, 102:312S-25S) recommended therapeutic range for oral anticoagulant therapy is: LOW RISK: Prophylaxis of venous thrombosis INR: 2.0-3.0 Treatment of pulmonary embolism 2.0-3.0 Prevention of systemic embolism 2.0-3.0 HIGH RISK: Mechanical prosthetic valves 2.5-3.5 PT Coag (PPP) [Time] 27.1 s High 9.0-14.4 [facility] Comment on above: Order Comment: order ed secondary to warfarin order Result Comment: Effe ctive 09/18/07, Protime results may be affected by some antibiotics (i.e. Ciprofloxacin, Azithromycin, Bactrim) which may potentiate the action of oral anticoagulants, with further increases in Protime/INR. .Auto Diffon 11-30-2023 Basophil, Absolute 0.1 10 3/mcL Normal 0.0-0.[address] [facility] Comment on above: Performed By: #### C BC, ADIFF, GFR, PRO, CMP, AMBROCIO CATES #### [address] [address] Basophils/100 WBC (Bld) 1.0 % Normal 0.0-2.5 [facility] Comment on above: Performed By: #### C BC, ADIFF, GFR, PRO, CMP, AMBROCIO CATES #### [address] [address] Eosinophil, Absolute 0.2 10 3/mcL Normal 0.0-0.7 [facility] Comment on above: Performed By: #### C BC, ADIFF, GFR, PRO, CMP, AMBROCIO CATES #### [address] [address] Eosinophils/100 WBC (Bld) 3.1 % Normal 0.0-7.0 [facility] Comment on above: Performed By: #### C BC, ADIFF, GFR, PRO, CMP, ANEUAMBROCIO #### [address] [address] Lymphocyte, Absolute 2.5 10 3/mcL Normal 0.9-4.3 [facility] Comment on above: Performed By: #### C BC, ADIFF, GFR, PRO, CMP, ANEU, AMBROCIO #### [address] [address] Lymphocytes/100 WBC (Bld) 32.2 % Normal 20.0-40.0 [facility] Comment on above: Performed By: #### C BC, ADIFF, GFR, PRO, CMP, ANEU, AMBROCIO #### [address] [address] Monocyte, Absolute 0.9 10 3/mcL Normal 0.1-1.[address] [facility] Comment on above: Performed By: #### C BC, ADIFF, GFR, PRO, CMP, ANEU, AMBROCIO #### [address] [address] Monocytes/100 WBC (Bld) 11.3 % Normal 2.0-13.0 [facility] Comment on above: Performed By: #### C BC, ADIFF, GFR, PRO, CMP, ANEU, AMBROCIO #### [address] [address] Neutrophils/100 WBC (Bld) 52.4 % Normal 50.0-75.0 [facility] Comment on above: Performed By: #### C BC, ADIFF, GFR, PRO, CMP, ANEU, AMBROCIO #### [address] [address] .GFRon 11-30-2023 GFR 90 ml/min/1.73sqm Normal [facility] Comment on above: Result Comment: GFR Population mean for , Non- Americans Ages 20-29 = 116 mL/min/1.73 sq.m. Ages 30-39 = 107 mL/min/1.73 sq.m. Ages 40-49 = 99 mL/min/1.73 sq.m. Ages 50-59 = 93 mL/min/1.73 sq.m. Ages 60-69 = 85 mL/min/1.73 sq.m. Ages 70+ = 75 mL/min/1.73 sq.m. Chronic Kidney Disease: Less than 60 mL/min/1.73 square meters End Stage Renal Disease: Less than 15 mL/min/1.73 square meters Performed By: #### C BC, ADIFF, GFR, PRO, CMP, ANEUAMBROCIO #### [address] [address] GFR Non- 74 ml/min/1.73sqm Normal [facility] Comment on above: Result Comment: GFR Population mean for , Non- Americans Ages 20-29 = 116 mL/min/1.73 sq.m. Ages 30-39 = 107 mL/min/1.73 sq.m. Ages 40-49 = 99 mL/min/1.73 sq.m. Ages 50-59 = 93 mL/min/1.73 sq.m. Ages 60-69 = 85 mL/min/1.73 sq.m. Ages 70+ = 75 mL/min/1.73 sq.m. Chronic Kidney Disease: Less than 60 mL/min/1.73 square meters End Stage Renal Disease: Less than 15 mL/min/1.73 square meters Performed By: #### C BC, ADIFF, GFR, PRO, CMP, ANEUAMBROCIO #### [address] [address] .MDWon 11-30-2023 Monocyte Distribution Width 19.78 Normal 0.00-20.00 [facility] Comment on above: Result Comment: For ED adult patients suspected of sepsis, MDW<=20.0 does not rule out sepsis or risk of sepsis Performed By: #### C BC, ADIFF, GFR, PRO, CMP, AMBROCIO CATES #### [address] [address] .NEUABSon 11-30-2023 Neutrophil, Absolute 4.1 10 3/mcL Normal 2.3-8.1 [facility] Comment on above: Performed By: #### C BC, ADIFF, GFR, PRO, CMP, ANEUAMBROCIO #### [address] [address] CBCon 11-30-2023 Erythrocyte distribution width (RBC) [Ratio] 13.1 % Normal 11.5-15.5 [facility] Comment on above: Performed By: #### C BC, ADIFF, GFR, PRO, CMP, ANEUMDW #### [address] [address] Hematocrit (Bld) [Volume fraction] 43.8 % Normal 40.0-52.0 [facility] Comment on above: Performed By: #### C BC, ADIFF, GFR, PRO, CMP, ANEUMDW #### [address] [address] Hgb 15.1 G/dL Normal 13.0-17.5 [facility] Comment on above: Performed By: #### C BC, ADIFF, GFR, PRO, CMP, ANEUMDW #### [address] [address] MCH (RBC) [Entitic mass] 32.9 pg Normal 27.0-33.0 [facility] Comment on above: Performed By: #### C BC, ADIFF, GFR, PRO, CMP, ANEU, AMBROCIO #### [address] [address] MCHC 34.5 G/dL Normal 32.0-36.0 [facility] Comment on above: Performed By: #### C BC, ADIFF, GFR, PRO, CMP, ANEU, W #### [address] [address] MCV (RBC) [Entitic vol] 95.2 fL Normal 81.0-100.0 [facility] Comment on above: Performed By: #### C BC, ADIFF, GFR, PRO, CMP, ANEUAMBROCIO #### [address] [address] Platelet 146 10 3/mcL Low 150-450 [facility] Comment on above: Performed By: #### C BC, ADIFF, GFR, PRO, CMP, ANEU, MDW #### [address] [address] Platelet mean volume (Bld) [Entitic vol] 9.1 fL Normal 6.4-10.5 [facility] Comment on above: Performed By: #### C BC, ADIFF, GFR, PRO, CMP, AMBROCIO CATES #### [address] [address] RBC 4.60 10 6/mcL Normal 4.50-6.00 [facility] Comment on above: Performed By: #### C BC, ADIFF, GFR, PRO, CMP, ABMROCIO CATES #### [address] [address] WBC 7.8 10 3/mcL Normal 4.5-10.8 [facility] Comment on above: Performed By: #### C BC, ADIFF, GFR, PRO, CMP, AMBROCIO CATES #### [address] [address] CMPon 11-30-2023 Albumin Level 3.8 G/dL Normal 3.4-4.8 [facility] Comment on above: Performed By: #### C BC, ADIFF, GFR, PRO, CMP, AMBROCIO CATES #### [address] [address] Albumin/Globulin [Mass ratio] 1.1 {ratio} Normal 1.1-2.5 [facility] Comment on above: Performed By: #### C BC, ADIFF, GFR, PRO, CMP, AMBROCIO CATES #### [address] [address] ALP [Catalytic activity/Vol] 105 U/L Normal 40-135 [facility] Comment on above: Performed By: #### C BC, ADIFF, GFR, PRO, CMP, AMBROCIO CATES #### [address] [address] ALT [Catalytic activity/Vol] 41 U/L Normal 16-63 [facility] Comment on above: Performed By: #### C BC, ADIFF, GFR, PRO, CMP, AMBROCIO CATES #### [address] [address] AST [Catalytic activity/Vol] 36 U/L Normal 10-40 [facility] Comment on above: Performed By: #### C BC, ADIFF, GFR, PRO, CMP, ANEUAMBROCIO #### [address] [address] Bili Total 0.9 mg/dL Normal 0.2-1.0 [facility] Comment on above: Result Comment: Use of this assay is not recommended for patients undergoing treatment with eltrombopag due to the potential for falsely elevated results. Performed By: #### C BC, ADIFF, GFR, PRO, CMP, ANEUAMBROCIO #### [address] [address] BUN/Creatinine Ratio 14 ratio Normal 7-[address] [facility] Comment on above: Performed By: #### C BC, ADIFF, GFR, PRO, CMP, ANEUAMBROCIO #### [address] [address] Calcium [Mass/Vol] 8.9 mg/dL Normal 8.4-10.2 [facility] Comment on above: Performed By: #### C BC, ADIFF, GFR, PRO, CMP, ANEUAMBROCIO #### [address] [address] Chloride [Moles/Vol] 97 mmol/L Low 98-[address] [facility] Comment on above: Performed By: #### C BC, ADIFF, GFR, PRO, CMP, AMBROCIO CATES #### [address] [address] CO2 [Moles/Vol] 31 mmol/L Normal 23-31 [facility] Comment on above: Performed By: #### C BC, ADIFF, GFR, PRO, CMP, ANEUAMBROCIO #### [address] [address] Creatinine [Mass/Vol] 0.96 mg/dL Normal 0.70-1.30 [facility] Comment on above: Result Comment: Test ing performed on Siemens Dimension EXL analyzer using a modified kinetic Chris technique. Performed By: #### C BC, ADIFF, GFR, PRO, CMP, ANEU, MDW #### [address] [address] Electrolyte Balance 6.0 mEq/L Normal 4.0-15.0 [facility] Comment on above: Performed By: #### C BC, ADIFF, GFR, PRO, CMP, ANEUAMBROCIO #### [address] [address] Globulin 3.4 G/dL Normal [facility] Comment on above: Performed By: #### C BC, ADIFF, GFR, PRO, CMP, ANEUAMBROCIO #### [address] [address] Glucose [Mass/Vol] 143 mg/dL High 83-110 [facility] Comment on above: Performed By: #### C BC, ADIFF, GFR, PRO, CMP, AMBROCIO CATES #### [address] [address] Potassium [Moles/Vol] 3.8 mmol/L Normal 3.5-5.1 [facility] Comment on above: Performed By: #### C BC, ADIFF, GFR, PRO, CMP, AMBROCIO CATES #### [address] [address] Sodium [Moles/Vol] 134 mmol/L Low 136-145 [facility] Comment on above: Performed By: #### C BC, ADIFF, GFR, PRO, CMP, AMBROCIO CATES #### [address] [address] Total Protein 7.2 G/dL Normal 6.4-8.2 [facility] Comment on above: Performed By: #### C BC, ADIFF, GFR, PRO, CMP, AMBROCIO CATES #### [address] [address] Urea nitrogen [Mass/Vol] 13 mg/dL Normal 7-18 [facility] Comment on above: Performed By: #### C BC, ADIFF, GFR, PRO, CMP, AMBROCIO CATES #### [place] [address] [place], [place] [address] CT ANGIOGRAPHY NECK W/CONTRA STon 11-30-2023 CT ANGIOGRAPHY NECK W/CONTRAST ORIGINAL EXAMINATION: CTA OF THE NECK 11/30/2023 10:14 pm TECHNIQUE: CTA of the neck was performed with the administration of intravenous contrast. Multiplanar reformatted images are provided for review. MIP images are provided for review. Stenosis of the internal carotid arteries measured using NASCET criteria. Automated exposure control, iterative reconstruction, and/or weight based adjustment of the mA/kV was utilized to reduce the radiation dose to as low as reasonably achievable. COMPARISON: CT cervical spine of the same date. HISTORY: ORDERING SYSTEM PROVIDED HISTORY: Reason for Exam: FELL DOWN 3FT RETAINING WALL TODAY, POS LOC, HIT HEAD, PREV IMAGING AT [facility] r/o dissection FINDINGS: AORTIC ARCH/ARCH VESSELS: No dissection or arterial injury. No significant stenosis of the brachiocephalic or subclavian arteries. CAROTID ARTERIES: Calcified atherosclerotic plaque is noted at the carotid bulbs bilaterally. No dissection, arterial injury, or hemodynamically significant stenosis by NASCET criteria. VERTEBRAL ARTERIES: No dissection, arterial injury, or significant stenosis. SOFT TISSUES: The lung apices are clear. No cervical or superior mediastinal lymphadenopathy. The larynx and pharynx are unremarkable. No acute abnormality of the salivary and thyroid glands. BONES: Redemonstrated displaced odontoid fracture extending into the lateral masses of C2 and involving the transverse foramina. IMPRESSION: No vascular injury associated with the C2 fracture. Interpreted by: Garth Morley Preliminary Report By: Garth Morley Electronically signed By Garth Morley Dictated Date: 11/30/2023 10:17:01 PM Prelim Date: 11/30/2023 10:23:06 PM Sign Date: 11/30/2023 10:23:06 PM Ordering Provider: JAZIEL REYES [facility] CT HEAD OR BRAIN W/O CONTRAS Ton 11-30-2023 CT HEAD OR BRAIN W/O CONTRAST ORIGINAL EXAMINATION: CT OF THE HEAD WITHOUT CONTRAST 11/30/2023 6:16 pm TECHNIQUE: CT of the head was performed without the administration of intravenous contrast. Automated exposure control, iterative reconstruction, and/or weight based adjustment of the mA/kV was utilized to reduce the radiation dose to as low as reasonably achievable. COMPARISON: None. HISTORY: ORDERING SYSTEM PROVIDED HISTORY: Reason for Exam: trauma FINDINGS: BRAIN/VENTRICLES: There is no acute intracranial hemorrhage, mass effect or midline shift. No abnormal extra-axial fluid collection. Small area of cortical based calcification in the right lateral temporal lobe posteriorly which can be correlated with prior exams for stability. Chronic appearing small hypodensities and vascular calcifications in the bilateral basal ganglia. The otto-white differentiation is maintained without evidence of an acute infarct. There is no evidence of hydrocephalus. There are nonspecific hypoattenuating foci in the subcortical and periventricular white matter that most likely represent chronic microangiopathic ischemic changes in a patient of this age. Parenchymal volume loss. ORBITS: The visualized portion of the orbits demonstrate no acute abnormality. SINUSES: The visualized paranasal sinuses and mastoid air cells demonstrate no acute abnormality. SOFT TISSUES/SKULL: No acute abnormality of the visualized skull. IMPRESSION: No acute intracranial abnormality. Small area of cortical based calcification in the right lateral temporal lobe posteriorly which can be correlated with prior exams for stability. Interpreted by: Jim Dwyer Preliminary Report By: Jim Dwyer Electronically signed By Jim Dwyer Dictated Date: 11/30/2023 6:16:57 PM Prelim Date: 11/30/2023 6:22:53 PM Sign Date: 11/30/2023 6:22:53 PM Ordering Provider: SHAYY Palmer [facility] CT SPINE CERVICAL W/O CONTRA Wilmer 11-30-2023 CT SPINE CERVICAL W/O CONTRAST ADDENDUM ADDENDUM: Odontoid fracture type is more consistent with type 3. Interpreted by: Garth Morley Preliminary Report By: Garth Morley Electronically signed By Garth Morley Dictated Date: 11/30/2023 6:44:23 PM Prelim Date: 11/30/2023 6:45:18 PM Sign Date: 11/30/2023 6:45:18 PM Ordering Provider: SHAYY HUA ORIGINAL EXAMINATION: CT OF THE CERVICAL SPINE WITHOUT CONTRAST 11/30/2023 6:16 pm TECHNIQUE: CT of the cervical spine was performed without the administration of intravenous contrast. Multiplanar reformatted images are provided for review. Automated exposure control, iterative reconstruction, and/or weight based adjustment of the mA/kV was utilized to reduce the radiation dose to as low as reasonably achievable. COMPARISON: None. HISTORY: ORDERING SYSTEM PROVIDED HISTORY: Reason for Exam: trauma FINDINGS: BONES/ALIGNMENT: There is an acute type 2 moderately displaced fracture through the base of the odontoid with 8 mm anterior and 7 mm inferior displacement. The fracture extends into the bilateral C2 lateral masses and involves foramen transversarium, left greater than right.. The atlanto-odontoid and atlantooccipital joints appear congruent. DEGENERATIVE CHANGES: Existing degenerative changes are probably most pronounced status C4-C5 where there may be mild left neural foramen stenosis. SOFT TISSUES: There is biapical pleuroparenchymal scarring. Calcified atherosclerotic plaque is noted at the carotid bulbs bilaterally. IMPRESSION: Acute displaced type 2 odontoid fracture with extension into the bilateral C2 lateral masses and involvement of the foramen transversarium, left greater than right. CTA of the neck is recommended to evaluate for vascular injury. RECOMMENDATIONS: CTA neck. Finding of odontoid fracture was discussed with Dr. Quinonez 6:25 p.m. on 11/30/2023. Interpreted by: Garth Morley Preliminary Report By: Garth Morley Electronically signed By Garth Morley Dictated Date: 11/30/2023 6:17:27 PM Prelim Date: 11/30/2023 6:29:34 PM Sign Date: 11/30/2023 6:29:34 PM Ordering Provider: SHAYY Palmer [facility] CT SPINE THORACIC W/O CONTRA Patt[place] 11-30-2023 CT SPINE THORACIC W/O CONTRAST ORIGINAL EXAMINATION: CT OF THE THORACIC SPINE WITHOUT CONTRAST11/30/2023 6:[address] WITHOUT IV CONTRAST TECHNIQUE: CT of the thoracic spine was performed without the administration of intravenous contrast. Multiplanar reformatted images are provided for review. Automated exposure control, iterative reconstruction, and/or weight based adjustment of the mA/kV was utilized to reduce the radiation dose to as low as reasonably achievable. COMPARISON: None. HISTORY: ORDERING SYSTEM PROVIDED HISTORY: Reason for Exam: fall. pt is confused about nature of injury. unable to raise arms for exam. trauma FINDINGS: No acute fracture or traumatic malalignment. Vertebral body heights are maintained. Multilevel degenerative changes of the spine. No high-grade spinal canal stenosis or neural foraminal narrowing. IMPRESSION: No acute fracture of the thoracic spine. I have personally reviewed the images of this examination and agree with the resident's findings and interpretation. Interpreted by: Jim Dwyer Preliminary Report By: Snow Lopez Electronically signed By Jim Dwyer Dictated Date: 11/30/2023 6:32:08 PM Prelim Date: 11/30/2023 7:31:15 PM Sign Date: 11/30/2023 7:31:15 PM Ordering Provider: SHAYY HUA [facility] CT THORAX W/ CONTRASTon 11-05 CT THORAX W/ CONTRAST ORIGINAL EXAMINATION: CT OF THE CHEST WITH CONTRAST 11/30/2023 6:28 pm TECHNIQUE: CT of the chest was performed with the administration of intravenous contrast. Multiplanar reformatted images are provided for review. Automated exposure control, iterative reconstruction, and/or weight based adjustment of the mA/kV was utilized to reduce the radiation dose to as low as reasonably achievable. COMPARISON: None. HISTORY: ORDERING SYSTEM PROVIDED HISTORY: Reason for Exam: fall. pt is confused about nature of injury. unable to raise arms for exam. trauma FINDINGS: Mediastinum: Coronary artery calcifications. Nonaneurysmal thoracic aorta with atherosclerotic plaque. No pericardial effusion. Small to moderate amount of retrosternal blood products. Calcified mediastinal and right hilar lymph nodes. Dilated pulmonary arteries which can be seen in pulmonary arterial hypertension. Lungs/pleura: Dependent and bibasilar atelectatic changes and/or scarring. Calcified granuloma in the right upper lobe. Pulmonary vascular prominence. No pneumothorax. Is pleuroparenchymal scarring. Upper Abdomen: Colonic diverticula. Fusiform dilatation of the celiac trunk. Cortical thinning of the kidneys bilaterally. Soft Tissues/Bones: Mildly displaced and comminuted fracture of the superior sternum. Essentially nondisplaced fractures of the bilateral 3rd costochondral cartilages at the costosternal junction. Please see CT thoracic spine performed same day. Degenerative shoulders. IMPRESSION: Mildly displaced and comminuted fracture of the superior sternum. Essentially nondisplaced fractures of the bilateral 3rd costochondral cartilages at the costosternal junction. Small to moderate amount of retrosternal blood products. Interpreted by: Jim Dwyer Preliminary Report By: Jim Dwyer Electronically signed By Jim Dwyer Dictated Date: 11/30/2023 6:33:16 PM Prelim Date: 11/30/2023 6:40:54 PM Sign Date: 11/30/2023 6:40:54 PM Ordering Provider: SHAYY HUA [facility] LABORATORYOrdered By: SYSTEM SYSTEM on 11-30-2023 Albumin BCP dye [Mass/Vol] 3.8 G/dL Normal 3.4 - 4.8 G/dL AO ADM SS Albumin/Globulin [Mass ratio] 1.1 {ratio} Normal 1.1 - 2.5 ratio AO ADM SS ALP [Catalytic activity/Vol] 105 U/L Normal 40 - 135 U/L AO ADM SS ALT With P-5'-P [Catalytic activity/Vol] 41 U/L Normal 16 - 63 U/L AO ADM SS AST With P-5'-P [Catalytic activity/Vol] 36 U/L Normal 10 - 40 U/L AO ADM SS Basophils (Bld) [#/Vol] 0.1 103/mcL Normal 0.0 - 0.2 10^3/mcL AO Workflow SS Basophils/100 WBC (Bld) 1.0 % Normal 0.0 - 2.5 % AO Workflow SS Bilirubin [Mass/Vol] 0.9 mg/dL Normal 0.2 - 1 .0 mg/dL AO ADM SS Comment on above: Interpretive Data: U se of this assay is not recommended for patients undergoing treatment with eltrombopag due to the potential for falsely elevated results. Calcium [Mass/Vol] 8.9 mg/dL Normal 8.4 - 10. 2 mg/dL AO ADM SS Chloride [Moles/Vol] 97 mmol/L Low 98 - 10 7 mmol/L AO ADM SS CO2 [Moles/Vol] 31 mmol/L Normal 23 - 31 mmol/L AO ADM SS Creatinine [Mass/Vol] 0.96 mg/dL Normal 0.70 - 1.30 mg/dL AO ADM SS Comment on above: Interpretive Data: T esting performed on Siemens Dimension EXL analyzer using a modified kinetic Chris technique. Electrolyte Balance 6.0 mEq/L Normal 4.0 - 15 .0 mEq/L AO ADM SS Eosinophil, Absolute 0.2 103/mcL Normal 0.0 - 0 .7 10^3/mcL AO Workflow SS Eosinophils/100 WBC (Bld) 3.1 % Normal 0.0 - 7.0 % AO Workflow SS Erythrocyte distribution width (RBC) [Ratio] 13.1 % Normal 11.5 - 15.5 % AO Workflow SS GFR/1.73 sq M.predicted among blacks MDRD (S/P/Bld) [Vol rate/Area] 90 ml/min/1.73sqm Invalid Interpretation Code AO Chemistry S Comment on above: Interpretive Data: GFR Population mean for , Non- Americans Ages 20-29 = 116 mL/min/1.73 sq.m. Ages 30-39 = 107 mL/min/1.73 sq.m. Ages 40-49 = 99 mL/min/1.73 sq.m. Ages 50-59 = 93 mL/min/1.73 sq.m. Ages 60-69 = 85 mL/min/1.73 sq.m. Ages 70+ = 75 mL/min/1.73 sq.m. Chronic Kidney Disease: Less than 60 mL/min/1.73 square meters End Stage Renal Disease: Less than 15 mL/min/1.73 square meters GFR/1.73 sq M.predicted among non-blacks MDRD (S/P/Bld) [Vol rate/Area] 74 ml/min/1.73sqm Invalid Interpretation Code AO Chemistry S Comment on above: Interpretive Data: GFR Population mean for , Non- Americans Ages 20-29 = 116 mL/min/1.73 sq.m. Ages 30-39 = 107 mL/min/1.73 sq.m. Ages 40-49 = 99 mL/min/1.73 sq.m. Ages 50-59 = 93 mL/min/1.73 sq.m. Ages 60-69 = 85 mL/min/1.73 sq.m. Ages 70+ = 75 mL/min/1.73 sq.m. Chronic Kidney Disease: Less than 60 mL/min/1.73 square meters End Stage Renal Disease: Less than 15 mL/min/1.73 square meters Globulin 3.4 G/dL Invalid Interpretation Code AO ADM SS Glucose [Mass/Vol] 143 mg/dL High 83 - 110 mg/dL AO ADM SS Hematocrit (Bld) [Volume fraction] 43.8 % Normal 40.0 - 52.0 % AO Workflow SS Hemoglobin (Bld) [Mass/Vol] 15.1 G/dL Normal 13.0 - 17.5 G/dL AO Workflow SS INR Coag (PPP) [Relative time] 2.5 {INR} Invalid Interpretation Code AO HemoHub SS Comment on above: Interpretive Data: T he [employer] (CHEST, 1992, 102:312S-25S) recommended therapeutic range for oral anticoagulant therapy is: LOW RISK: Prophylaxis of venous thrombosis INR: 2.0-3.0 Treatment of pulmonary embolism 2.0-3.0 Prevention of systemic embolism 2.0-3.0 HIGH RISK: Mechanical prosthetic valves 2.5-3.5 Lymphocytes (Bld) [#/Vol] 2.5 103/mcL Normal 0.9 - 4.3 10^3/mcL AO Workflow SS Lymphocytes/100 WBC (Bld) 32.2 % Normal 20.0 - 40.0 % AO Workflow SS MCH (RBC) [Entitic mass] 32.9 pg Normal 27.0 - 33.0 pg AO Workflow SS MCHC 34.5 G/dL Normal 32.0 - 36.0 G/dL AO Workflow SS MCV (RBC) [Entitic vol] 95.2 fL Normal 81.0 - 100.0 fL AO Workflow SS Monocyte distribution width Auto (Bld) [Entitic vol] 19.78 1 Normal 0.00 - 20.00 AO Workflow SS Comment on above: Result Comment: For ED adult patients suspected of sepsis, MDW<=20.0 does not rule out sepsis or risk of sepsis Monocytes (Bld) [#/Vol] 0.9 103/mcL Normal 0.1 - 1.4 10^3/mcL AO Workflow SS Monocytes/100 WBC (Bld) 11.3 % Normal 2.0 - 13.0 % AO Workflow SS Neutrophils (Bld) [#/Vol] 4.1 103/mcL Normal 2.3 - 8.1 10^3/mcL AO Workflow SS Neutrophils/100 WBC (Bld) 52.4 % Normal 50.0 - 75.0 % AO Workflow SS Platelet mean volume (Bld) [Entitic vol] 9.1 fL Normal 6.4 - 10.5 fL AO Workflow SS Platelets (Bld) [#/Vol] 146 103/mcL Low 150 - 450 10^3/mcL AO Workflow SS Potassium [Moles/Vol] 3.8 mmol/L Normal 3.5 - 5.1 mmol/L AO ADM SS Protein [Mass/Vol] 7.2 G/dL Normal 6.4 - 8.2 G/dL AO ADM SS PT Coag (PPP) [Time] 29.5 s High 9.0 - 1 4.4 seconds AO HemoHub SS RBC (Bld) [#/Vol] 4.60 106/mcL Normal 4.50 - 6.0 0 10^6/mcL AO Workflow SS Sodium [Moles/Vol] 134 mmol/L Low 136 - 145 mmol/L AO ADM SS Urea nitrogen [Mass/Vol] 13 mg/dL Normal 7 - 18 mg/dL AO ADM SS Urea nitrogen/Creatinine [Mass ratio] 14 ratio Normal 7 - 27 ratio AO ADM SS WBC (Bld) [#/Vol] 7.8 103/mcL Normal 4.5 - 10.8 10^3/mcL AO Workflow SS PROon 11-30-2023 PT Coag (PPP) [Time] 29.5 s High 9.0-[facility] [facility] Comment on above: Performed By: #### C BC, ADIFF, GFR, PRO, CMP, LOAN, AMBROCIO #### [address] [address] PT International Ratio 2.5 Normal [facility] Comment on above: Result Comment: [employer] (CHEST, 1991, 102:312S-25S) recommended therapeutic range for oral anticoagulant therapy is: LOW RISK: Prophylaxis of venous thrombosis INR: 2.0-3.0 Treatment of pulmonary embolism 2.0-3.0 Prevention of systemic embolism 2.0-3.0 HIGH RISK: Mechanical prosthetic valves 2.5-3.5 Performed By: #### C BC, ADIFF, GFR, PRO, CMP, LOAN, W #### [address] [address] A1Con 11-04-2023 Glucose [Mass/Vol] 126 mg/dL Normal [facility] ([place]) Comment on above: Result Comment: Winter mated Average Glucose calculated by equation ((28.7xA1C)-46.7) Estimated average glucose (eAG) is a calculated value from Hemoglobin A1C and is sales [employer] of the average blood glucose level in the last 2-3 month period. Normal range: less than 114 mg/dL Performed By: #### A 1C, PRO, PHOS, TSH, FT4, VIDH #### [address] [place], [place] [address] HbA1c (Bld) [Mass fraction] 6.0 % Normal 4.3-6.4 [facility] ([place]) Comment on above: Performed By: #### A 1C, PRO, PHOS, TSH, FT4, VIDH #### [address] [place], [place] [address] FT4on 11-04-2023 Free T4 [Mass/Vol] 0.86 ng/dL Normal 0.76-1.46 [facility] ([place]) Comment on above: Performed By: #### A 1C, PRO, TSH, FT4, VIDH, LIPID #### [id number] [place], [place] [address] LABORATORYOrdered By: SYSTEM SYSTEM on 11-04-2023 25-hydroxyvitamin D3 [Mass/Vol] 28.7 ng/mL Invalid Interpretation Code AO ADM SS Comment on above: Interpretive Data: I nterpretive Values Based on Total 25(OH) Vitamin D: Deficient <20 ng/mL Insufficient 20 - <30 ng/mL Sufficient 30-100 ng/mL Free T4 [Mass/Vol] 0.86 ng/dL Normal 0.76 - 1. 46 ng/dL AO ADM SS Glucose [Mass/Vol] 126 mg/dL Invalid Interpretation Code AO Chemistry S Comment on above: Interpretive Data: E stimated average glucose (eAG) is a calculated value from Hemoglobin A1C and is [employer] of the average blood glucose level in the last 2-3 month period. Normal range: less than 114 mg/dL HbA1c (Bld) [Mass fraction] 6.0 % Normal 4.3 - 6.4 % AO ADM SS INR Coag (PPP) [Relative time] 2.2 {INR} Invalid Interpretation Code AO [facility] SS Comment on above: Interpretive Data: [employer] (CHEST, 1992, 102:312S-25S) recommended therapeutic range for oral anticoagulant therapy is: LOW RISK: Prophylaxis of venous thrombosis INR: 2.0-3.0 Treatment of pulmonary embolism 2.0-3.0 Prevention of systemic embolism 2.0-3.0 HIGH RISK: Mechanical prosthetic valves 2.5-3.5 Phosphate [Mass/Vol] 2.8 mg/dL Normal 2.3 - 4 .1 mg/dL AO ADM SS PT Coag (PPP) [Time] 25.5 s High 9.0 - 1 4.4 seconds AO Hemo[facility] SS TSH Qn 4.30 m[IU]/L High 0.36 - 3.74 mcIU/mL AO ADM SS PHOSon 11-04-2023 Phosphate [Mass/Vol] 2.8 mg/dL Normal 2.3-4.1 [facility] ([place]) Comment on above: Performed By: #### A 1C, PRO, PHOS, TSH, FT4, VIDH #### [address] [address] PROon 11-04-2023 PT Coag (PPP) [Time] 25.5 s High 9.0-14.4 [facility] ([place]) Comment on above: Performed By: #### A 1C, PRO, PHOS, TSH, FT4, VIDH #### [address] [address] PT International Ratio 2.2 Normal [facility] ([place]) Comment on above: Result Comment: [employer] (CHEST, 1992, 102:312S-25S) recommended therapeutic range for oral anticoagulant therapy is: LOW RISK: Prophylaxis of venous thrombosis INR: 2.0-3.0 Treatment of pulmonary embolism 2.0-3.0 Prevention of systemic embolism 2.0-3.0 HIGH RISK: Mechanical prosthetic valves 2.5-3.5 Performed By: #### A 1C, PRO, PHOS, TSH, FT4, VIDH #### [address] [address] TSHon 11-04-2023 TSH Qn 4.30 m[IU]/L High 0.36-3.74 [facility] ([place]) Comment on above: Performed By: #### A 1C, PRO, TSH, FT4, VIDH, LIPID #### [address] [address] VIDHon 11-04-2023 Vit. D 25-Hydroxy 28.7 ng/mL Normal [facility] ([place]) Comment on above: Result Comment: Inte rpretive Values Based on Total 25(OH) Vitamin D: Deficient <20 ng/mL Insufficient 20 - <30 ng/mL Sufficient 30-100 ng/mL Performed By: #### A 1C, PRO, TSH, FT4, VIDH, LIPID #### [address] [address] .Auto Diffon 06-08-2023 Basophil, Absolute 0.0 10 3/mcL Normal 0.0-0.2 [facility] ([place]) Comment on above: Performed By: #### A 1C, PRO, TSH, FT4, VIDH, LIPID #### [address] [address] Basophils/100 WBC (Bld) 0.4 % Normal 0.0-2.5 [facility] ([place]) Comment on above: Performed By: #### A 1C, PRO, TSH, FT4, VIDH, LIPID #### [address] [address] Eosinophil, Absolute 0.3 10 3/mcL Normal 0.0-0.4 [facility] ([place]) Comment on above: Performed By: #### A 1C, PRO, TSH, FT4, VIDH, LIPID #### [address] [address] Eosinophils/100 WBC (Bld) 3.0 % Normal 0.0-7.0 [facility] ([place]) Comment on above: Performed By: #### A 1C, PRO, TSH, FT4, VIDH, LIPID #### [address] [address] Lymphocyte, Absolute 2.6 10 3/mcL Normal 0.8-3.9 [facility] ([place]) Comment on above: Performed By: #### A 1C, PRO, TSH, FT4, VIDH, LIPID #### [address] [address] Lymphocytes/100 WBC (Bld) 29.8 % Normal 10.0-50.0 [facility] ([place]) Comment on above: Performed By: #### A 1C, PRO, TSH, FT4, VIDH, LIPID #### [address] [address] Monocyte, Absolute 1.0 10 3/mcL Normal 0.2-1.0 [facility] ([place]) Comment on above: Performed By: #### A 1C, PRO, TSH, FT4, VIDH, LIPID #### [address] [address] Monocytes/100 WBC (Bld) 12.0 % Normal 1.7-13.0 [facility] ([place]) Comment on above: Performed By: #### A 1C, PRO, TSH, FT4, VIDH, LIPID #### [address] [address] Neutrophils/100 WBC (Bld) 54.8 % Normal 37.0-80.0 [facility] ([place]) Comment on above: Performed By: #### A 1C, PRO, TSH, FT4, VIDH, LIPID #### [address] [address] .GFRon 06-08-2023 GFR 100 ml/min/1.73sqm Normal [facility] ([place]) Comment on above: Result Comment: GFR Population mean for , Non- Americans Ages 20-29 = 116 mL/min/1.73 sq.m. Ages 30-39 = 107 mL/min/1.73 sq.m. Ages 40-49 = 99 mL/min/1.73 sq.m. Ages 50-59 = 93 mL/min/1.73 sq.m. Ages 60-69 = 85 mL/min/1.73 sq.m. Ages 70+ = 75 mL/min/1.73 sq.m. Chronic Kidney Disease: Less than 60 mL/min/1.73 square meters End Stage Renal Disease: Less than 15 mL/min/1.73 square meters Performed By: #### A 1C, PRO, TSH, FT4, VIDH, LIPID #### [address] [address] GFR Non- 83 ml/min/1.73sqm Normal [facility] ([place]) Comment on above: Result Comment: GFR Population mean for , Non- Americans Ages 20-29 = 116 mL/min/1.73 sq.m. Ages 30-39 = 107 mL/min/1.73 sq.m. Ages 40-49 = 99 mL/min/1.73 sq.m. Ages 50-59 = 93 mL/min/1.73 sq.m. Ages 60-69 = 85 mL/min/1.73 sq.m. Ages 70+ = 75 mL/min/1.73 sq.m. Chronic Kidney Disease: Less than 60 mL/min/1.73 square meters End Stage Renal Disease: Less than 15 mL/min/1.73 square meters Performed By: #### A 1C, PRO, TSH, FT4, VIDH, LIPID #### [address] [address] .NEUABSon 06-08-2023 Neutrophil, Absolute 4.8 10 3/mcL Normal 2.9-6.2 [facility] ([place]) Comment on above: Performed By: #### A 1C, PRO, TSH, FT4, VIDH, LIPID #### [address] [address] A1Con 06-08-2023 HbA1c (Bld) [Mass fraction] 6.1 % Normal 4.3-6.4 [facility] ([place]) Comment on above: Performed By: #### A 1C, PRO, TSH, FT4, VIDH, LIPID #### [address] [address] CBCon 06-08-2023 Erythrocyte distribution width (RBC) [Ratio] 13.0 % Normal 11.5-14.5 [facility] ([place]) Comment on above: Performed By: #### A 1C, PRO, TSH, FT4, VIDH, LIPID #### [address] [address] Hematocrit (Bld) [Volume fraction] 43.6 % Normal 42.0-52.0 [facility] ([place]) Comment on above: Performed By: #### A 1C, PRO, TSH, FT4, VIDH, LIPID #### [address] [address] Hgb 15.2 G/dL Normal 14.0-18.0 [facility] ([place]) Comment on above: Performed By: #### A 1C, PRO, TSH, FT4, VIDH, LIPID #### [address] [address] MCH (RBC) [Entitic mass] 33.3 pg High 27.0-31.2 [facility] ([place]) Comment on above: Performed By: #### A 1C, PRO, TSH, FT4, VIDH, LIPID #### [address] [address] MCHC 34.9 G/dL Normal 31.8-35.4 [facility] ([place]) Comment on above: Performed By: #### A 1C, PRO, TSH, FT4, VIDH, LIPID #### [address] [address] MCV (RBC) [Entitic vol] 95.2 fL High 80.0-94.0 [facility] ([place]) Comment on above: Performed By: #### A 1C, PRO, TSH, FT4, VIDH, LIPID #### [address] [address] Platelet 154 10 3/mcL Normal 130-400 [facility] ([place]) Comment on above: Performed By: #### A 1C, PRO, TSH, FT4, VIDH, LIPID #### [address] [address] Platelet mean volume (Bld) [Entitic vol] 10.2 fL Normal 7.4-10.4 [facility] ([place]) Comment on above: Performed By: #### A 1C, PRO, TSH, FT4, VIDH, LIPID #### [address] [address] RBC 4.57 10 6/mcL Normal 4.04-6.13 [facility] ([place]) Comment on above: Performed By: #### A 1C, PRO, TSH, FT4, VIDH, LIPID #### [address] [address] WBC 8.7 10 3/mcL Normal 4.6-10.8 [facility] ([place]) Comment on above: Performed By: #### A 1C, PRO, TSH, FT4, VIDH, LIPID #### [address] [address] CMPon 06-08-2023 Albumin Level 3.7 G/dL Normal 3.4-4.8 [facility] ([place]) Comment on above: Performed By: #### A 1C, PRO, TSH, FT4, VIDH, LIPID #### [address] [address] Albumin/Globulin [Mass ratio] 1.1 {ratio} Normal 1.1-2.5 [facility] ([place]) Comment on above: Performed By: #### A 1C, PRO, TSH, FT4, VIDH, LIPID #### [address] [address] ALP [Catalytic activity/Vol] 108 U/L Normal 40-135 [facility] ([place]) Comment on above: Performed By: #### A 1C, PRO, TSH, FT4, VIDH, LIPID #### [address] [address] ALT [Catalytic activity/Vol] 39 U/L Normal 16-63 [facility] ([place]) Comment on above: Performed By: #### A 1C, PRO, TSH, FT4, VIDH, LIPID #### [address] [address] AST [Catalytic activity/Vol] 35 U/L Normal 10-40 [facility] ([place]) Comment on above: Performed By: #### A 1C, PRO, TSH, FT4, VIDH, LIPID #### [address] [address] Bili Total 0.7 mg/dL Normal 0.2-1.0 [facility] ([place]) Comment on above: Result Comment: Use of this assay is not recommended for patients undergoing treatment with eltrombopag due to the potential for falsely elevated results. Performed By: #### A 1C, PRO, TSH, FT4, VIDH, LIPID #### [address] [address] BUN/Creatinine Ratio 14 ratio Normal 7-27 [facility] ([place]) Comment on above: Performed By: #### A 1C, PRO, TSH, FT4, VIDH, LIPID #### [address] [address] Calcium [Mass/Vol] 8.8 mg/dL Normal 8.4-10.2 [facility] ([place]) Comment on above: Performed By: #### A 1C, PRO, TSH, FT4, VIDH, LIPID #### [place] [id number] Chloride [Moles/Vol] 102 mmol/L Normal 98-107 [facility] ([place]) Comment on above: Performed By: #### A 1C, PRO, TSH, FT4, VIDH, LIPID #### [place] [address] CO2 [Moles/Vol] 32 mmol/L High 23-31 [facility] ([place]) Comment on above: Performed By: #### A 1C, PRO, TSH, FT4, VIDH, LIPID #### [address] [address] Creatinine [Mass/Vol] 0.87 mg/dL Normal 0.70-1.30 [facility] ([place]) Comment on above: Performed By: #### A 1C, PRO, TSH, FT4, VIDH, LIPID #### [address] [address] Electrolyte Balance 6.0 mEq/L Normal 4.0-15.0 [facility] ([place]) Comment on above: Performed By: #### A 1C, PRO, TSH, FT4, VIDH, LIPID #### [address] [address] Globulin 3.5 G/dL Normal [facility] ([place]) Comment on above: Performed By: #### A 1C, PRO, TSH, FT4, VIDH, LIPID #### [address] [address] Glucose [Mass/Vol] 94 mg/dL Normal 83-110 [facility] ([place]) Comment on above: Performed By: #### A 1C, PRO, TSH, FT4, VIDH, LIPID #### [address] [address] Potassium [Moles/Vol] 4.3 mmol/L Normal 3.5-5.1 [facility] ([place]) Comment on above: Performed By: #### A 1C, PRO, TSH, FT4, VIDH, LIPID #### [address] [address] Sodium [Moles/Vol] 140 mmol/L Normal 136-145 [facility] ([place]) Comment on above: Performed By: #### A 1C, PRO, TSH, FT4, VIDH, LIPID #### [address] [address] Total Protein 7.2 G/dL Normal 6.4-8.2 [facility] ([place]) Comment on above: Performed By: #### A 1C, PRO, TSH, FT4, VIDH, LIPID #### [address] [address] Urea nitrogen [Mass/Vol] 12 mg/dL Normal 7-18 [facility] ([place]) Comment on above: Performed By: #### A 1C, PRO, TSH, FT4, VIDH, LIPID #### [address] [address] FT4on 06-08-2023 Free T4 [Mass/Vol] 0.82 ng/dL Normal 0.76-1.46 [facility] ([place]) Comment on above: Performed By: #### A 1C, PRO, TSH, FT4, VIDH, LIPID #### [address] [address] LABORATORYOrdered By: Vivi Palomares on 06-08-2023 Albumin DL <= 20 mg/L (U) [Mass/Vol] 352 mcg/dL Invalid Interpretation Code AO ADM SS Albumin/Creatinine DL <= 20 mg/L (U) [Mass ratio] 6 mcg/mg Normal 0 - 30 mcg/mg AO ADM SS Creatinine (U) [Mass/Vol] 58.6 mg/dL Normal 39.0 - 259.0 mg/dL AO ADM SS LABORATORYOrdered By: SYSTEM SYSTEM on 06-08-2023 Albumin BCP dye [Mass/Vol] 3.7 G/dL Normal 3.4 - 4.8 G/dL AO ADM SS Albumin/Globulin [Mass ratio] 1.1 {ratio} Normal 1.1 - 2.5 ratio AO ADM SS ALP [Catalytic activity/Vol] 108 U/L Normal 40 - 135 U/L AO ADM SS ALT With P-5'-P [Catalytic activity/Vol] 39 U/L Normal 16 - 63 U/L AO ADM SS AST With P-5'-P [Catalytic activity/Vol] 35 U/L Normal 10 - 40 U/L AO ADM SS Basophil, Absolute 0.0 103/mcL Normal 0.0 - 0.2 10^3/mcL AO Workflow SS Basophils/100 WBC (Bld) 0.4 % Normal 0.0 - 2.5 % AO Workflow SS Bilirubin [Mass/Vol] 0.7 mg/dL Normal 0.2 - 1 .0 mg/dL AO ADM SS Comment on above: Interpretive Data: U se of this assay is not recommended for patients undergoing treatment with eltrombopag due to the potential for falsely elevated results. Calcium [Mass/Vol] 8.8 mg/dL Normal 8.4 - 10. 2 mg/dL AO ADM SS Chloride [Moles/Vol] 102 mmol/L Normal 98 - 10 7 mmol/L AO ADM SS CO2 [Moles/Vol] 32 mmol/L High 23 - 31 mmol/L AO ADM SS Creatinine [Mass/Vol] 0.87 mg/dL Normal 0.70 - 1.30 mg/dL AO ADM SS Electrolyte Balance 6.0 mEq/L Normal 4.0 - 15 .0 mEq/L AO ADM SS Eosinophil, Absolute 0.3 103/mcL Normal 0.0 - 0 .4 10^3/mcL AO Workflow SS Eosinophils/100 WBC (Bld) 3.0 % Normal 0.0 - 7.0 % AO Workflow SS Erythrocyte distribution width (RBC) [Ratio] 13.0 % Normal 11.5 - 14.5 % AO Workflow SS Free T4 [Mass/Vol] 0.82 ng/dL Normal 0.76 - 1. 46 ng/dL AO ADM SS GFR/1.73 sq M.predicted among blacks MDRD (S/P/Bld) [Vol rate/Area] 100 ml/min/1.73sqm Invalid Interpretation Code AO Chemistry S Comment on above: Interpretive Data: GFR Population mean for , Non- Americans Ages 20-29 = 116 mL/min/1.73 sq.m. Ages 30-39 = 107 mL/min/1.73 sq.m. Ages 40-49 = 99 mL/min/1.73 sq.m. Ages 50-59 = 93 mL/min/1.73 sq.m. Ages 60-69 = 85 mL/min/1.73 sq.m. Ages 70+ = 75 mL/min/1.73 sq.m. Chronic Kidney Disease: Less than 60 mL/min/1.73 square meters End Stage Renal Disease: Less than 15 mL/min/1.73 square meters GFR/1.73 sq M.predicted among non-blacks MDRD (S/P/Bld) [Vol rate/Area] 83 ml/min/1.73sqm Invalid Interpretation Code AO Chemistry S Comment on above: Interpretive Data: GFR Population mean for , Non- Americans Ages 20-29 = 116 mL/min/1.73 sq.m. Ages 30-39 = 107 mL/min/1.73 sq.m. Ages 40-49 = 99 mL/min/1.73 sq.m. Ages 50-59 = 93 mL/min/1.73 sq.m. Ages 60-69 = 85 mL/min/1.73 sq.m. Ages 70+ = 75 mL/min/1.73 sq.m. Chronic Kidney Disease: Less than 60 mL/min/1.73 square meters End Stage Renal Disease: Less than 15 mL/min/1.73 square meters Globulin 3.5 G/dL Invalid Interpretation Code AO ADM SS Glucose [Mass/Vol] 94 mg/dL Normal 83 - 110 mg/dL AO ADM SS HbA1c (Bld) [Mass fraction] 6.1 % Normal 4.3 - 6.4 % AO ADM SS Hematocrit (Bld) [Volume fraction] 43.6 % Normal 42.0 - 52.0 % AO Workflow SS Hemoglobin (Bld) [Mass/Vol] 15.2 G/dL Normal 14.0 - 18.0 G/dL AO Workflow SS Lymphocyte, Absolute 2.6 103/mcL Normal 0.8 - 3 .9 10^3/mcL AO Workflow SS Lymphocytes/100 WBC (Bld) 29.8 % Normal 10.0 - 50.0 % AO Workflow SS MCH (RBC) [Entitic mass] 33.3 pg High 27.0 - 31.2 pg AO Workflow SS MCHC 34.9 G/dL Normal 31.8 - 35.4 G/dL AO Workflow SS MCV (RBC) [Entitic vol] 95.2 fL High 80.0 - 94.0 fL AO Workflow SS Monocyte, Absolute 1.0 103/mcL Normal 0.2 - 1.0 10^3/mcL AO Workflow SS Monocytes/100 WBC (Bld) 12.0 % Normal 1.7 - 13.0 % AO Workflow SS Neutrophil, Absolute 4.8 103/mcL Normal 2.9 - 6 .2 10^3/mcL AO Workflow SS Neutrophils/100 WBC (Bld) 54.8 % Normal 37.0 - 80.0 % AO Workflow SS Platelet mean volume (Bld) [Entitic vol] 10.2 fL Normal 7.4 - 10.4 fL AO Workflow SS Platelets (Bld) [#/Vol] 154 103/mcL Normal 130 - 400 10^3/mcL AO Workflow SS Potassium [Moles/Vol] 4.3 mmol/L Normal 3.5 - 5.1 mmol/L AO ADM SS Protein [Mass/Vol] 7.2 G/dL Normal 6.4 - 8.2 G/dL AO ADM SS RBC (Bld) [#/Vol] 4.57 106/mcL Normal 4.04 - 6.1 3 10^6/mcL AO Workflow SS Sodium [Moles/Vol] 140 mmol/L Normal 136 - 145 mmol/L AO ADM SS TSH Qn 4.11 m[IU]/L High 0.36 - 3.74 mcIU/mL AO ADM SS Urea nitrogen [Mass/Vol] 12 mg/dL Normal 7 - 18 mg/dL AO ADM SS Urea nitrogen/Creatinine [Mass ratio] 14 ratio Normal 7 - 27 ratio AO ADM SS WBC (Bld) [#/Vol] 8.7 103/mcL Normal 4.6 - 10.8 10^3/mcL AO Workflow SS MALBRon 06-08-2023 U Creatinine 58.6 mg/dL Normal 39.0-259.0 [facility] ([place]) Comment on above: Performed By: #### M ALBR #### [address] [address] U Microalb 352 mcg/dL Normal [facility] ([place]) Comment on above: Performed By: #### M ALBR #### [address] [address] U Ratio Alb/Cre 6 mcg/mg Normal 0-30 [facility] ([place]) Comment on above: Performed By: #### M ALBR #### [address] [address] TSHon 06-08-2023 TSH Qn 4.11 m[IU]/L High 0.36-3.74 [facility] ([place]) Comment on above: Performed By: #### A 1C, PRO, TSH, FT4, VIDH, LIPID #### [address] [address] A1Con 11-29-2022 HbA1c (Bld) [Mass fraction] 6.0 % Normal 4.3-6.4 [facility] ([place]) Comment on above: Performed By: #### A 1C, PRO, TSH, FT4, VIDH, LIPID #### [address] [address] FT4on 11-29-2022 Free T4 [Mass/Vol] 0.78 ng/dL Normal 0.76-1.46 [facility] ([place]) Comment on above: Performed By: #### A 1C, PRO, TSH, FT4, VIDH, LIPID #### [address] [address] LIPIDon 11-29-2022 Cholesterol [Mass/Vol] 145 mg/dL Normal 0-200 [facility] ([place]) Comment on above: Result Comment: Chol esterol Reference Interval: Less than 200 Desirable 200-239 Borderline high risk 240 and above High risk Performed By: #### A 1C, PRO, TSH, FT4, VIDH, LIPID #### [address] [address] Cholesterol in HDL [Mass/Vol] 38 mg/dL Low 40-60 [facility] ([place]) Comment on above: Performed By: #### A 1C, PRO, TSH, FT4, VIDH, LIPID #### [address] [address] Cholesterol in LDL [Mass/Vol] 56 mg/dL Normal 0-130 [facility] ([place]) Comment on above: Performed By: #### A 1C, PRO, TSH, FT4, VIDH, LIPID #### [place] [id number] Triglyceride [Mass/Vol] 256 mg/dL High 0-150 [facility] ([place]) Comment on above: Result Comment: Trig lyceride Reference Interval: Less than 150 Normal 150-199 Borderline high risk 200-499 High risk 500 or higher Very high risk Performed By: #### A 1C, PRO, TSH, FT4, VIDH, LIPID #### [address] [address] PROon 11-29-2022 PT Coag (PPP) [Time] 32.0 s High 9.0-14.2 [facility] ([place]) Comment on above: Performed By: #### A 1C, PRO, TSH, FT4, VIDH, LIPID #### [address] [address] PT International Ratio 2.8 Normal [facility] ([place]) Comment on above: Result Comment: [employer] (CHEST, 1991, 102:312S-25S) recommended therapeutic range for oral anticoagulant therapy is: LOW RISK: Prophylaxis of venous thrombosis INR: 2.0-3.0 Treatment of pulmonary embolism 2.0-3.0 Prevention of systemic embolism 2.0-3.0 HIGH RISK: Mechanical prosthetic valves 2.5-3.5 Performed By: #### A 1C, PRO, TSH, FT4, VIDH, LIPID #### [address] [address] TSHon 11-29-2022 TSH Qn 3.75 m[IU]/L High 0.36-3.74 [facility] ([place]) Comment on above: Performed By: #### A 1C, PRO, TSH, FT4, VIDH, LIPID #### [place] [address] [place], [place] [address] VIDHon 11-29-2022 Vit. D 25-Hydroxy 33.3 ng/mL Normal [facility] ([place]) Comment on above: Result Comment: Inte rpretive Values Based on Total 25(OH) Vitamin D: Deficient <20 ng/mL Insufficient 20 - <30 ng/mL Sufficient 30-100 ng/mL Performed By: #### A 1C, PRO, TSH, FT4, VIDH, LIPID #### [place] [id number] [place], [place] [address] LABORATORYOrdered By: Nguyen Nicole on 01-18-2022 INR Coag (PPP) [Relative time] 2.8 {INR} Invalid Interpretation Code 0.9 - 1.2 ratio AO Coag SS PT Coag (PPP) [Time] 29.6 s Invalid Interpretation Code 9.7 - 13.9 seconds AO Coag SS Basophil, Absolute 0.1 103/mcL Invalid Interpretation Code 0.0 - 0.2 10^3/mcL AO Workflow SS Basophils/100 WBC (Bld) 0.5 % Invalid Interpretation Code 0.0 - 2.5 % AO Workflow SS Calcium [Mass/Vol] 9.3 mg/dL Invalid Interpretation Code 8.4 - 10.2 mg/dL AO ADM SS Chloride [Moles/Vol] 100 mmol/L Invalid Interpretation Code 98 - 107 mmol/L AO ADM SS CO2 [Moles/Vol] 32 mmol/L Invalid Interpretation Code 23 - 31 mmol/L AO ADM SS Creatinine [Mass/Vol] 0.89 mg/dL Invalid Interpretation Code 0.70 - 1.30 mg/dL AO ADM SS Electrolyte Balance 7.0 mEq/L Invalid Interpretation Code 4.0 - 15.0 mEq/L AO ADM SS Eosinophil, Absolute 0.3 103/mcL Invalid Interpretation Code 0.0 - 0.4 10^3/mcL AO Workflow SS Eosinophils/100 WBC (Bld) 3.1 % Invalid Interpretation Code 0.0 - 7.0 % AO Workflow SS Erythrocyte distribution width (RBC) [Ratio] 13.0 % Invalid Interpretation Code 11.5 - 14.5 % AO Workflow SS Free T4 [Mass/Vol] 0.93 ng/dL Invalid Interpretation Code 0.76 - 1.46 ng/dL AO ADM SS Glucose [Mass/Vol] 112 mg/dL Invalid Interpretation Code 83 - 110 mg/dL AO ADM SS Hematocrit (Bld) [Volume fraction] 45.3 % Invalid Interpretation Code 42.0 - 52.0 % AO Workflow SS Hemoglobin (Bld) [Mass/Vol] 15.6 G/dL Invalid Interpretation Code 14.0 - 18.0 G/dL AO Workflow SS Lymphocyte, Absolute 2.0 103/mcL Invalid Interpretation Code 0.8 - 3.9 10^3/mcL AO Workflow SS Lymphocytes/100 WBC (Bld) 19.6 % Invalid Interpretation Code 10.0 - 50.0 % AO Workflow SS MCH (RBC) [Entitic mass] 32.8 pg Invalid Interpretation Code 27.0 - 31.2 pg AO Workflow SS MCHC 34.5 G/dL Invalid Interpretation Code 31.8 - 35.4 G/dL AO Workflow SS MCV (RBC) [Entitic vol] 95.1 fL Invalid Interpretation Code 80.0 - 94.0 fL AO Workflow SS Monocyte, Absolute 1.2 103/mcL Invalid Interpretation Code 0.2 - 1.0 10^3/mcL AO Workflow SS Monocytes/100 WBC (Bld) 11.9 % Invalid Interpretation Code 1.7 - 13.0 % AO Workflow SS Neutrophil, Absolute 6.6 103/mcL Invalid Interpretation Code 2.9 - 6.2 10^3/mcL AO Workflow SS Neutrophils/100 WBC (Bld) 64.9 % Invalid Interpretation Code 37.0 - 80.0 % AO Workflow SS Platelet mean volume (Bld) [Entitic vol] 10.5 fL Invalid Interpretation Code 7.4 - 10.4 fL AO Workflow SS Platelets (Bld) [#/Vol] 160 103/mcL Invalid Interpretation Code 130 - 400 10^3/mcL AO Workflow SS Potassium [Moles/Vol] 4.1 mmol/L Invalid Interpretation Code 3.5 - 5.1 mmol/L AO ADM SS RBC (Bld) [#/Vol] 4.76 106/mcL Invalid Interpretation Code 4.04 - 6.13 10^6/mcL AO Workflow SS Sodium [Moles/Vol] 139 mmol/L Invalid Interpretation Code 136 - 145 mmol/L AO ADM SS TSH Qn 4.19 m[IU]/L Invalid Interpretation Code 0.36 - 3.74 mcIU/mL AO ADM SS Urea nitrogen [Mass/Vol] 14 mg/dL Invalid Interpretation Code 7 - 18 mg/dL AO ADM SS Urea nitrogen/Creatinine [Mass ratio] 16 ratio Invalid Interpretation Code 7 - 27 ratio AO ADM SS Vit. D 25-Hydroxy 29.3 ng/mL Invalid Interpretation Code AO ADM SS WBC (Bld) [#/Vol] 10.2 103/mcL Invalid Interpretation Code 4.6 - 10.8 10^3/mcL AO Workflow SS LABORATORYOrdered By: SYSTEM SYSTEM on 01-18-2022 GFR 98 ml/min/1.73sqm Invalid Interpretation Code AO Chemistry S GFR Non- 81 ml/min/1.73sqm Invalid Interpretation Code AO Chemistry S LABORATORYOrdered By: Andrea Vargas on 03-30-2021 Albumin BCP dye [Mass/Vol] 4.0 G/dL Invalid Interpretation Code 3.4 - 4.8 G/dL AO ADM SS Albumin/Globulin [Mass ratio] 1.2 {ratio} Invalid Interpretation Code 1.1 - 2.5 ratio AO ADM SS ALP [Catalytic activity/Vol] 86 U/L Invalid Interpretation Code 40 - 135 U/L AO ADM SS ALT With P-5'-P [Catalytic activity/Vol] 44 U/L Invalid Interpretation Code 16 - 63 U/L AO ADM SS AST With P-5'-P [Catalytic activity/Vol] 41 U/L Invalid Interpretation Code 10 - 40 U/L AO ADM SS Bilirubin [Mass/Vol] 0.6 mg/dL Invalid Interpretation Code 0.2 - 1.0 mg/dL AO ADM SS Calcium [Mass/Vol] 9.0 mg/dL Invalid Interpretation Code 8.4 - 10.2 mg/dL AO ADM SS Chloride [Moles/Vol] 103 mmol/L Invalid Interpretation Code 98 - 107 mmol/L AO ADM SS Cholesterol [Mass/Vol] 145 mg/dL Invalid Interpretation Code 0 - 200 mg/dL AO ADM SS Cholesterol in HDL [Mass/Vol] 37 mg/dL Invalid Interpretation Code 40 - 60 mg/dL AO ADM SS Cholesterol in LDL [Mass/Vol] 63 mg/dL Invalid Interpretation Code 0 - 130 mg/dL AO ADM SS CO2 [Moles/Vol] 29 mmol/L Invalid Interpretation Code 23 - 31 mmol/L AO ADM SS Creatinine [Mass/Vol] 1.01 mg/dL Invalid Interpretation Code 0.70 - 1.30 mg/dL AO ADM SS Electrolyte Balance 9.0 mEq/L Invalid Interpretation Code 4.0 - 15.0 mEq/L AO ADM SS Globulin 3.3 G/dL Invalid Interpretation Code AO ADM SS Glucose [Mass/Vol] 128 mg/dL Invalid Interpretation Code 83 - 110 mg/dL AO ADM SS Potassium [Moles/Vol] 4.3 mmol/L Invalid Interpretation Code 3.5 - 5.1 mmol/L AO ADM SS Protein [Mass/Vol] 7.3 G/dL Invalid Interpretation Code 6.4 - 8.2 G/dL AO ADM SS Sodium [Moles/Vol] 141 mmol/L Invalid Interpretation Code 136 - 145 mmol/L AO ADM SS Triglyceride [Mass/Vol] 225 mg/dL Invalid Interpretation Code 0 - 150 mg/dL AO ADM SS TSH Qn 4.30 m[IU]/L Invalid Interpretation Code 0.36 - 3.74 mcIU/mL AO ADM SS Urea nitrogen [Mass/Vol] 13 mg/dL Invalid Interpretation Code 7 - 18 mg/dL AO ADM SS Urea nitrogen/Creatinine [Mass ratio] 13 ratio Invalid Interpretation Code 7 - 27 ratio AO ADM SS LABORATORYOrdered By: Marcia Gasca on 03-30-2021 Basophil, Absolute 0.00 103/mcL Invalid Interpretation Code 0.00 - 0.19 10^3/mcL AO Auto Heme SS Basophils/100 WBC (Bld) 0.7 % Invalid Interpretation Code 0.0 - 2.5 % AO Auto Heme SS Eosinophil, Absolute 0.40 103/mcL Invalid Interpretation Code 0.00 - 0.40 10^3/mcL AO Auto Heme SS Eosinophils/100 WBC (Bld) 6.2 % Invalid Interpretation Code 0.0 - 7.0 % AO Auto Heme SS Erythrocyte distribution width (RBC) [Ratio] 12.6 % Invalid Interpretation Code 11.5 - 14.5 % AO Auto Heme SS Hematocrit (Bld) [Volume fraction] 44.2 % Invalid Interpretation Code 42.0 - 52.0 % AO Auto Heme SS Hemoglobin (Bld) [Mass/Vol] 15.2 G/dL Invalid Interpretation Code 14.0 - 18.0 G/dL AO Auto Heme SS Lymphocyte, Absolute 2.00 103/mcL Invalid Interpretation Code 0.77 - 3.85 10^3/mcL AO Auto Heme SS Lymphocytes/100 WBC (Bld) 34.2 % Invalid Interpretation Code 10.0 - 50.0 % AO Auto Heme SS MCH (RBC) [Entitic mass] 32.2 pg Invalid Interpretation Code 27.0 - 31.2 pg AO Auto Heme SS MCHC (RBC) [Mass/Vol] 34.4 G/dL Invalid Interpretation Code 31.8 - 35.4 G/dL AO Auto Heme SS MCV (RBC) [Entitic vol] 93.5 fL Invalid Interpretation Code 80.0 - 94.0 fL AO Auto Heme SS Monocyte, Absolute 0.70 103/mcL Invalid Interpretation Code 0.15 - 1.00 10^3/mcL AO Auto Heme SS Monocytes/100 WBC (Bld) 11.2 % Invalid Interpretation Code 1.7 - 13.0 % AO Auto Heme SS Neutrophil, Absolute 2.80 103/mcL Invalid Interpretation Code 2.85 - 6.16 10^3/mcL AO Auto Heme SS Neutrophils/100 WBC (Bld) 47.7 % Invalid Interpretation Code 37.0 - 80.0 % AO Auto Heme SS Platelet mean volume (Bld) [Entitic vol] 9.8 fL Invalid Interpretation Code 7.4 - 10.4 fL AO Auto Heme SS Platelets (Bld) [#/Vol] 160 103/mcL Invalid Interpretation Code 130 - 400 10^3/mcL AO Auto Heme SS RBC (Bld) [#/Vol] 4.73 106/mcL Invalid Interpretation Code 4.04 - 6.13 10^6/mcL AO Auto Heme SS WBC (Bld) [#/Vol] 5.90 103/mcL Invalid Interpretation Code 4.60 - 10.80 10^3/mcL AO Auto Heme SS LABORATORYOrdered By: SYSTEM SYSTEM on 03-30-2021 GFR 85 ml/min/1.73sqm Invalid Interpretation Code AO Chemistry S GFR Non- 70 ml/min/1.73sqm Invalid Interpretation Code AO Chemistry S Vital Signs Date Time Vital Sign Value Performing Clinician Alicia bernard 12-12-2023 14:59-0400 Blood Pressure Cuff Size [facility] DO [facility] 12-12-2023 14:59-0400 Blood Pressure Location [facility] DO [facility] 12-12-2023 14:59-0400 Blood Pressure Method [facility] 12-12-2023 14:59-0400 Body temperature 98.06 [degF] [facility] 12-12-2023 14:59-0400 Diastolic Blood Pressure Non-Invasive 86 mm[Hg] [facility] 12-12-2023 14:59-0400 Heart rate 74 /min [facility] [employer] [facility] 12-12-2023 14:59-0400 Respiratory rate 16 /min [facility] [employer] [facility] 12-12-2023 14:59-0400 Systolic Blood Pressure Non-Invasive 128 mm[Hg] [facility] DO [facility] 12-11-2023 22:40-0400 Blood Pressure Cuff Size [facility] [employer] [facility] 12-11-2023 22:40-0400 Blood Pressure Location [facility] [employer] [facility] 12-11-2023 22:40-0400 Blood Pressure Method [facility] DO [facility] 12-11-2023 22:40-0400 Body temperature 97.7 [degF] [facility] DO [facility] 12-11-2023 22:40-0400 Diastolic Blood Pressure Non-Invasive 77 mm[Hg] [facility] DO [facility] 12-11-2023 22:40-0400 Heart rate 59 /min [facility] [employer] [facility] 12-11-2023 22:40-0400 Respiratory rate 16 /min [facility] [employer] [facility] 12-11-2023 22:40-0400 Systolic Blood Pressure Non-Invasive 129 mm[Hg] [facility] [employer] [facility] 12-11-2023 16:21-0400 Blood Pressure Cuff Size [facility] [employer] [facility] 12-11-2023 16:21-0400 Blood Pressure Location [facility] [employer] [facility] 12-11-2023 16:21-0400 Blood Pressure Method [facility] 12-11-2023 16:21-0400 Body temperature 98.24 [degF] [facility] 12-11-2023 16:21-0400 Diastolic Blood Pressure Non-Invasive 89 mm[Hg] [facility] [employer] [facility] 12-11-2023 16:21-0400 Heart rate 70 /min [facility] [employer] [facility] 12-11-2023 16:21-0400 Respiratory rate 16 /min [facility] [employer] [facility] 12-11-2023 16:21-0400 Systolic Blood Pressure Non-Invasive 139 mm[Hg] [facility] [employer] [facility] 12-10-2023 23:06-0400 Heart rate 61 /min [facility] [employer] [facility] 12-10-2023 10:22-0400 Reason For Taking VItal Signs [facility] [employer] [facility] 12-09-2023 22:56-0400 Heart rate 63 /min [facility] [employer] [facility] 12-09-2023 16:23-0400 Heart rate 78 /min [facility] [employer] [facility] 12-09-2023 07:14-0400 Reason For Taking VItal Signs [facility] [employer] [facility] 12-08-2023 23:32-0400 Heart rate 64 /min [facility] [employer] [facility] 12-08-2023 21:05-0400 Heart rate 78 /min [facility] [employer] [facility] 12-08-2023 15:03-0400 Reason For Taking VItal Signs [facility] [employer] [facility] 12-08-2023 07:08-0400 Body temperature 97.34 [degF] [facility] [employer] [facility] 12-06-2023 06:52-0400 Heart rate 74 /min [facility] [employer] [facility] 12-04-2023 11:36-0400 Body temperature 98.78 [degF] [facility] [employer] [facility] 12-02-2023 12:58-0400 Mean blood pressure 72 mm[Hg] [facility] [employer] [facility] 12-01-2023 15:39-0400 Body height 177.8 cm [facility] [employer] [facility] 12-01-2023 15:39-0400 Body weight 92.7 kg [facility] [employer] [facility] 12-01-2023 15:39-0400 Body weight 29.32 kg/m2 [facility] [employer] [facility] 12-01-2023 04:04-0400 Mean blood pressure 95 mm[Hg] [facility] [employer] [facility] 12-01-2023 03:48-0400 Mean blood pressure 85 mm[Hg] [facility] [employer] [facility] 11-30-2023 19:49-0400 Body temperature 97.7 [degF] DR SHAYY HUA MD [facility] 11-30-2023 19:49-0400 Diastolic Blood Pressure Non-Invasive 97 mm[Hg] DR SHAYY HUA MD [facility] 11-30-2023 19:49-0400 Heart rate 87 /min DR SHAYY HUA MD [facility] 11-30-2023 19:49-0400 Respiratory rate 18 /min DR SHAYY HUA MD [facility] 11-30-2023 19:49-0400 Systolic Blood Pressure Non-Invasive 151 mm[Hg] DR SHAYY HUA MD [facility] 11-30-2023 19:22-0400 Blood Pressure Cuff Size DR SHAYY HUA MD [facility] 11-30-2023 19:22-[address] SHAYY HUA MD [facility] 11-30-2023 19:22-[address] SHAYY HUA MD [facility] 11-30-2023 19:22-0400 Diastolic Blood Pressure Non-Invasive 94 mm[Hg] DR SHAYY HUA MD [facility] 11-30-2023 19:22-0400 Heart rate 78 /min DR SHAYY HUA MD [facility] 11-30-2023 19:22-0400 Respiratory rate 16 /min DR SHAYY HUA MD [facility] 11-30-2023 19:22-0400 Systolic Blood Pressure Non-Invasive 154 mm[Hg] DR SHAYY HUA MD [facility] 11-30-2023 19:10-0400 Blood Pressure Cuff Size DR SHAYY HUA MD [facility] 11-30-2023 19:10-[address] SHAYY HUA MD [facility] 11-30-2023 19:10-[address] SHAYY HUA MD [facility] 11-30-2023 19:10-0400 Diastolic Blood Pressure Non-Invasive 101 mm[Hg] DR SHAYY HUA MD [facility] 11-30-2023 19:10-0400 Heart rate 79 /min DR SHAYY HUA MD [facility] 11-30-2023 19:10-0400 Respiratory rate 18 /min DR SHAYY HUA MD [facility] 11-30-2023 19:10-0400 Systolic Blood Pressure Non-Invasive 157 mm[Hg] DR SHAYY HUA MD [facility] 11-30-2023 18:40-0400 Blood Pressure Cuff Size DR SHAYY HUA MD [facility] 11-30-2023 18:40-[address] SHAYY HUA MD [facility] 11-30-2023 18:40-[address] SHAYY HUA MD [facility] 11-30-2023 17:45-0400 Body height 177.[address] SHAYY HUA MD [facility] 11-30-2023 17:45-0400 Body temperature 97.7 [degF] DR SHAYY HUA MD [facility] 11-30-2023 17:45-0400 Body weight 90.[address] SHAYY HUA MD [facility] 11-30-2023 17:45-0400 Reason For Taking VItal Signs DR SHAYY HUA MD [facility] Encounters Encounter Date Encounter Type Care Provider Facility Start: 11-30-2023 End: 12-12-2023 Evaluation and management of inpatient [facility] DO [facility] Start: 11-30-2023 End: 11-30-2023 Emergency department patient visit DR SHAYY HUA MD [facility] Start: 11-04-2023 End: 11-04-2023 ambulatory BRII GRAHAM DO Facility:B Start: 11-04-2023 End: 11-04-2023 Patient encounter procedure BRII GRAHAM DO [facility] Start: 06-08-2023 End: 06-08-2023 ambulatory BRII GRAHAM DO Facility:[facility] Start: 06-08-2023 End: 06-08-2023 Patient encounter procedure BRII GRAHAM DO [facility] Start: 06-08-2023 End: 06-08-2023 Well adult monitoring check done BRII GRAHAM DO [facility] Start: 11-29-2022 End: 11-29-2022 ambulatory BRII GRAHAM DO Facility:[facility] Start: 06-28-2022 End: 06-28-2022 Patient encounter procedure BRII GRAHAM DO [facility] Start: 01-18-2022 End: 01-18-2022 Patient encounter procedure BRII Nelly GLADYS DO [facility] Start: 03-30-2021 End: 03-30-2021 Patient encounter procedure JAZIEL BROWN MD [facility] Procedures Date Procedure Procedure Detail Performing Clinician Start: 03-19-2019 Cataract (morphologi c abnormality) JAZIEL BROWN MD Start: 04-09-2012 Extraction of cataract JAZIEL BROWN MD Comment on above: Left, [facility], Dr. Rios Start: 06-04-2005 Strabismus surgery specialty (qualifier value) JAZIEL BROWN MD Comment on above: Dr. López, [facility] Start: 03-06-1998 Large intestine excision JAZIEL BROWN MD Comment on above: Dr. 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 Immunizations Immunization Date Immunization Notes Care Provider [facility] 09-25-2023 tetanus toxoid, redu catalina diphtheria toxoid, and acellular pertussis vaccine, adsorbed BRII GRAHAM DO [facility] 06-21-2022 Pneumococcal conjuga te PCV20, polysaccharide [id number] conjugate, adjuvant, PF; Translations: [Prevnar 20] BRII GRAHAM DO [facility] 04-07-2021 COVID-19, mRNA, LNP- S, PF, 100 mcg or 50 mcg dose; Translations: [Moderna COVID-19 Vaccine] BRII GRAHAM DO [facility] Comment on above: Early/Late Reason: O ther: 05-25-2020 COVID-19, mRNA, LNP- S, PF, 100 mcg or 50 mcg dose; Translations: [Moderna COVID-19 Vaccine] JAZIEL BROWN MD [facility] 04-27-2020 COVID-19, mRNA, LNP- S, PF, 100 mcg or 50 mcg dose; Translations: [Moderna COVID-19 Vaccine] JAZIEL BROWN MD [facility] 03-18-2014 zoster vaccine, live JAZIEL BROWN MD [facility] 05-30-2012 tetanus toxoid, redu catalina diphtheria toxoid, and acellular pertussis vaccine, adsorbed JAZIEL BROWN MD [facility] Payers Date Payer Category Payer Medicare [id number] 2022 Unknown [id number] 1935 Unknown [id number] [id number] 1935 Unknown [id number] [id number] 1935 Unknown [id number] [id number] [id number] 1935 Unknown [id number] [id number] 1935 Unknown [id number] [id number] Social History Date Type Detail Facility Start: 10-04-2018 Never smoked t obacco (finding) [facility] Sex Assigned At Male [facility] Functional Status Date Assessment Result Facility 12-12-2023 Functional Status Mod [facility] 12-11-2023 Functional Status Max [facility] 12-10-2023 Functional Status [facility] 12-10-2023 Functional Status [facility] 12-10-2023 Functional Status [facility] 12-09-2023 Functional Status [facility] 12-09-2023 Functional Status [facility] 12-09-2023 Functional Status [facility] 12-08-2023 Functional Status [facility] 12-08-2023 Functional Status [facility] 12-07-2023 Functional Status Antiembolism S tocking Off/Removed bilateral thigh high [facility] 12-07-2023 [facility]07-2023 Functional Status Special Call D evice Special device provided [facility] 12-06-2023 Functional Status [facility] 12-06-2023 [facility] 12-05-2023 Functional Status Beds/Devices low air lo ss bed [facility] 12-05-2023 Functional Status [facility] 12-05-2023 Functional Status Reason SCD Rem jamie/Off Patient refused [facility] 12-04-2023 Functional Status Activity Assistance One assist [facility] 12-04-2023 Functional Status Feeding Assist ance Maximum assistance [facility] 12-04-2023 Functional Status [facility] 12-03-[facility]23 [facility] 12-02-2023 [facility] 12-02-2023 Functional Status elevated on pillows [facility] 12-02-2023 Functional Status [facility] 12-02-2023 Functional Status [facility] 12-01-2023 Functional Status Sensory Defici ts Hearing deficit, left ear, Hearing deficit, right ear [facility] 12-01-2023 Functional Status Multilevel therese e, 1st floor bedroom, 1st floor bathroom [facility] 12-01-2023 Functional Status Orthotics, Dev ice Worn Per Schedule Yes [facility] 11-30-2023 Functional Status ID band on, Allergy Band on, Call device within reach, Bed in low position, Wheels locked, Safety level maintained [facility] 11-30-2023 Functional Status Awake, Resting [facility] Mental Status Date Assessment Result Facility 12-12-2023 Mental Status Oriented x 4 [facility] 12-11-2023 Mental Status [facility] 12-11-2023 Mental Status [facility] 12-11-2023 Mental Status [facility] 12-10-2023 Mental Status [facility] 11-30-2023 Mental Status Orientation Oriented x 4 [facility] 11-30-2023 Mental Status [facility] Clinical Notes 06-28-2022 to 12-12-2023 Note Date & Type Note Facility 12-12-2023 Hospital Discharg e instructions Patient Education 12/12/2023 13:47:02 Acute Pain, Adult Acute Pain, Adult Acute pain is a type of sudden pain that may last for just a few days or for as long as six months. It is often related to an illness, injury, or medical procedure. Acute pain may be mild, moderate, or severe. Pain can make it hard for you to do your normal, daily activities. It can cause anxiety and lead to other problems if it is left untreated. Treatment depends on the cause and severity of your pain. Acute pain usually goes away once your injury has healed or you are no longer ill. Follow these instructions at home: Medicines Take knpo-wfe-ozmppha and prescription medicines only as told by your health care provider. Take the lowest dose of medicine for the shortest amount of time needed to relieve the pain. If you are taking prescription pain medicine: ?Do not stop taking the medicine suddenly. Talk to your health care provider about how and when to discontinue prescription medicine. ?Do not take more pills than told by your health care provider even if your pain is severe. ?Do not take other bycd-yof-tnmounw pain medicines in addition to prescription pain medicine unless told by your health care provider. ?Ask your health care provider if the medicine requires you to avoid driving or using heavy machinery. ?Ask your health care provider if the medicine can cause constipation. You may need to take these actions to prevent or treat constipation: ?Drink enough fluid to keep your urine pale yellow. ?Eat foods that are high in fiber, such as beans, whole grains, and fresh fruits and vegetables. ?Take gldj-lkz-ymgkwkt or prescription medicines. ?Limit foods that are high in fat and processed sugars, such as fried or sweet foods. Managing pain, stiffness, and swelling If directed, put ice on the affected area. To do this: Put ice in a plastic bag. Place a towel between your skin and the bag. Leave the ice on for 20 minutes, 2 3 times a day. If directed, apply heat to the affected area as often as told by your health care provider. Use the heat source that your health care provider recommends, such as a moist heat pack or a heating pad. Place a towel between your skin and the heat source. Leave the heat on for 20 30 minutes. Remove the heat if your skin turns bright red. This is especially important if you are unable to feel pain, heat, or cold. You may have a greater risk of getting burned. Activity Rest as told by your health care provider. Return to your normal activities as told by your health care provider. Ask your health care provider what activities are safe for you. General instructions Check your pain level as told by your health care provider. Ask your health care provider if other strategies such as distraction, relaxation, or physical therapies can help your pain. Keep all follow-up visits as told by your health care provider. This is important. Contact a health care provider if: Your pain is not controlled by medicine. Your pain does not improve or gets worse. You have side effects from pain medicines, such as vomiting or confusion. Get help right away if you: Have severe pain. Have trouble breathing. Lose consciousness. Have chest pain or pressure that lasts for more than a few minutes, or if you have other symptoms along with chest pain, including if you: ?Have pain or discomfort in one or both arms, your back, neck, jaw, or stomach. ?Have shortness of breath. ?Break out in a cold sweat. ?Feel nauseous. ?Become light-headed. These symptoms may represent a serious problem that is an emergency. Do not wait to see if the symptoms will go away. Get medical help right away. Call your local emergency services (911 in the [place] Do not drive yourself to the hospital. Summary Acute pain may be mild, moderate, or severe. It usually goes away once your injury has healed or you are no longer ill. Take zxsy-qbg-hchbivz and prescription medicines only as told by your health care provider. Ask your health care provider if the medicine prescribed to you can cause constipation. Contact a health care provider if your pain is not controlled by medicine. This information is not intended to replace advice given to you by your health care provider. Make sure you discuss any questions you have with your health care provider. Document Released: 03/06/2016 Document Revised: 07/08/2019 Document Reviewed: 07/08/2019 [employer] Patient Education 2020 [employer]. 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 The following is important discharge information regarding your hospital visit. Your Care Team BRII GRAHAM DO Your Diagnosis Acute pain Non-rheumatic mitral regurgitation Odontoid fracture with type II morphology PAF (paroxysmal atrial fibrillation) Sternal fracture What to do next Instructions From Your Doctor Must wear [place] J hard cervical collar at all times. Prior to your follow up office visit, you will need a repeat x-ray of your neck. Please go to the [facility] Ground Floor Radiology Department on 01/01/2024 at 9:00am. From the radiology department, you will go over to the [facility], [address], for your appointment with Dr. Knight's nurse practitioner, Brenda. Scheduled Follow-Up Appointments Appointment Type When With Where Contact Information StatusPC OV 12/15/2023 11:45 AM EDT BRII GRAHAM DO [address] [phone] Confirmed NS OV 01/01/2024 09:45 AM EDT Neurosurgery [address] [phone] Confirmed CV OV 11/26/2024 09:30 AM EDT LATRELL MAGAÑA APRN-ASSISTANT PROFESSOR OF MARINE BIOLOGY [facility] Confirmed Follow Up Appointments Follow Up with LEONILA BANSAL MD, [facility], Surgery, Vascular Surgeons When:Within 1-2 days Where:[address] [facility] [address] [facility] [place] [address] [phone] Additional Information: 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 The Following Treatments Have Been Ordered for You Discharge Labs No qualifying data available. Discharge Radiology No qualifying data available. Other Therapies Transfer of Care OT - Ordered -- Reason for therapy: SP fall, 12/12/23 9:18:00 EDT Transfer of Care PT - Ordered -- Reason for therapy: SP fall, 12/12/23 9:18:00 EDT Post Acute Orders Transfer of Care Admission Level of Care - Ordered -- Level of Care SNF, 12/12/23 9:52:38 EDT Transfer of Care Code Status - Ordered -- DNRCC-Arrest Do Not Intubate, Constant Order Transfer of Care Communication Order - Ordered -- Expect less than 30 day stay., 12/12/23 9:52:38 EDT Transfer of Care Orders Electronically Signed By - Ordered -- 12/12/23 9:18:00 EDT, RODNEY GIL DO Transfer of Care Prognosis - Ordered -- Lebron, Patient Aware: Yes Transfer of Care Rehab Potential - Ordered -- Rehab potential fair, 12/12/23 9:18:23 EDT Someone Will Contact You Regarding These Home Health Referrals No home referrals have been ordered for you. No one will call you. Allergies penicillin Rash Medications Please ask your primary doctor or pharmacist before taking any other medication not listed, including over the counter drugs, herbal medications, vitamins and or supplements as they may interact with your home medications. What How Much When Why Instructions Last Dose New acetaminophen (Tylenol 325 mg oral capsule) 650 Milligram by mouth Every 6 hours New dexAMETHasone (dexAMETHasone 2 mg oral tablet) See instructions 2 tabs (4mg) TID x 1 day 2 tabs (4 mg) BID x 2 days 1 tab (2mg) BID x 2 days 1 tab (2mg) daily x 2 days 0.5 tab (1mg) day x 2 days then stop. Pickup at [id number] New oxyCODONE (oxyCODONE 5 mg oral tablet ( IMMEDIATE release )) 1 tab(s) by mouth Every 6 hours as needed for for pain Acute pain Duration: 5 Days Printed Prescription Changed warfarin (warfarin 2 mg oral tablet) 2 tab(s) by mouth Once a day Unchanged alendronate (alendronate 70 mg oral tablet) 1 tab(s) by mouth Every week Unchanged ascorbic acid (Vitamin C 500 mg oral tablet) by mouth Once a day Unchanged ascorbic acid/ chondroitin/ glucosa/ gali (Glucosamine Chondroitin) by mouth Once a day 500mg/ 400mg daily Unchanged aspirin (aspirin 81 mg oral tablet, chewable) Chewed Once a day Unchanged calcium citrate (Citracal 500 mg oral tablet) by mouth Two (2) times a day takes 600 mg daily Unchanged cholecalciferol (Vitamin D3 25 mcg (1000 intl units) oral capsule) by mouth Once a day Unchanged herbal/ nutritional product (Probiotic) Unchanged herbal/ nutritional product (saw palmetto oral capsule) takes 540 mg daily Unchanged herbal/ nutritional product (turmeric 500 mg oral capsule) takes turmeric 600mg and black pepper 5 mg Unchanged lactobacillus acidophilus (Acidophilus oral tablet) by mouth Once a day Unchanged multivitamin (B Complex 50 oral tablet) by mouth Once a day takes 125 mg daily Unchanged multivitamin (Multivitamin) 1 tab(s) by mouth Every day multivitamin and mineral Unchanged multivitamin with minerals (PreserVision AREDS 2) Chewed Two (2) times a day Unchanged propafenone (propafenone 225 mg oral tablet) 1 tab(s) by mouth Three (3) times a day Unchanged simvastatin (simvastatin 10 mg oral tablet) 0.5 tab(s) by mouth Daily at bedtime TAKE 1/ 2 (ONE-HALF) TABLET BY MOUTH EVERY DAY AT BEDTIME Unchanged vitamin E (vitamin E 200 intl units oral capsule) 1 cap by mouth Every day Pharmacy Information [id number]: [id number] [place], [place] [id number] [phone] Please take this list to your next doctor s visit. Bring all medications you take, including over the counter medications, herbals and other supplements with you to your doctor s visit. Patients and families are reminded to discard old lists and to update any records with all medication providers or retail pharmacies. Medication Leaflets oxycodone (ox i KOE done) Oxaydo, OxyCONTIN, Roxicodone, RoxyBond, Xtampza ER What is the most important information I should know about oxycodone? MISUSE OF OPIOID MEDICINE CAN CAUSE ADDICTION, OVERDOSE, OR . Fatal side effects may occur if you also drink alcohol or use other drugs that cause drowsiness or slow breathing. Using opioid medicine during may cause life-threatening withdrawal symptoms in the . What is oxycodone? Oxycodone is an opioid pain medication used to treat moderate to severe pain. Oxycodone is usually given after other treatments did not work or were not tolerated. Extended-release oxycodone is for nfiifk-jda-eqzuk treatment of severe and chronic pain that requires longer treatment. This medicine is not for use on an as-needed basis. Oxycodone may also be used for purposes not listed in this medication guide. What should I discuss with my healthcare provider before taking oxycodone? You should not use oxycodone if you are allergic to it, or if you have severe asthma, breathing problems or a stomach or bowel obstruction (including paralytic ileus). Tell your doctor if you have ever had: other breathing problems, sleep apnea (breathing that stops during sleep); a head injury, brain tumor, high pressure inside the skull, or seizures, drug or alcohol addiction, or mental illness; if you have used an MAO inhibitor in the past 14 days, such as isocarboxazid, linezolid, methylene blue injection, phenelzine, or tranylcypromine; urination problems, problems with your gallbladder, pancreas, thyroid, or adrenal gland; or liver or kidney disease. Most forms of oxycodone are not approved for use in people under 18 years old. The extended-release tablets should not be given to a child younger than 11 years old. Tell your doctor if you also use stimulant medicine, opioid medicine, herbal products, or medicine for depression, mental illness, Parkinson's disease, migraine headaches, serious infections, or prevention of nausea and vomiting. An interaction with oxycodone could cause a serious condition called serotonin syndrome. May harm an unborn baby. Tell your doctor if you are or plan to become . If you use oxycodone during , your baby could be born with life-threatening withdrawal symptoms, and may need medical treatment for several weeks. Do not breastfeed. Oxycodone in breast milk can cause life-threatening side effects in a nursing baby. Long-term oxycodone may affect fertility in men or women. could be harder to achieve while either parent is using this medicine. How should I take oxycodone? Follow the directions on your prescription label and read all medication guides or instruction sheets. Never use oxycodone in larger amounts, or for longer than prescribed. Tell your doctor if you feel an increased urge to use more of this medicine. Never share opioid medicine with another person, especially someone with a history of drug addiction. MISUSE CAN CAUSE ADDICTION, OVERDOSE, OR . Keep the medicine where others cannot get to it. Selling or giving away this medicine is against the law. Never crush a pill or use the liquid to inhale the mixture or inject it into your vein. This could result in . Your dose needs may change if you switch to a different brand, strength, or form of this medicine. Avoid medication errors by using exactly as directed on the label, or as prescribed by your doctor. Stop taking all other kdhxri-uvk-erprw opioid pain medicines when you start taking extended-release oxycodone. Swallow the extended-release forms whole to avoid exposure to a potentially fatal overdose. Do not crush, chew, break, open, or dissolve. Take the extended-release capsules with food. Read and carefully follow the instructions for use on how to prepare and take this medicine if you cannot swallow extended release capsules whole or you use a feeding tube. Ask your doctor or pharmacist if you don't understand these instructions. Measure liquid medicine with the supplied measuring device (not a kitchen spoon). You may be given other medications to help prevent or treat certain side effects. You may have withdrawal symptoms if you stop using oxycodone suddenly. Ask your doctor before stopping the medicine. Store at room temperature away from moisture and heat. Keep your medicine in a place where no one can use it improperly. Do not keep leftover medicine. Just one dose can cause in someone using it accidentally or improperly. Ask your pharmacist about a drug take-back program, or flush the unused medicine down the toilet. What happens if I miss a dose? Since oxycodone is used for pain, you are not likely to miss a dose. Skip any missed dose if it is almost time for your next dose. Do not use two doses at one time. What happens if I overdose? Seek emergency medical attention or call the Poison Help line at . An overdose can be fatal, especially in a child or person using opioid medicine without a prescription. Your doctor may recommend you get naloxone (a medicine to reverse an opioid overdose) and keep it with you at all times. A person caring for you can give the naloxone if you stop breathing or don't wake up. Your caregiver must still get emergency medical help and may need to perform CPR (cardiopulmonary resuscitation) on you while waiting for help to arrive. Anyone can buy naloxone from a pharmacy or local health department. Make sure any person caring for you knows where you keep naloxone and how to use it. What should I avoid while taking oxycodone? Do not drink alcohol or any products that contain alcohol. Dangerous side effects or could occur. Avoid driving or hazardous activity until you know how this medicine will affect you. Dizziness or drowsiness can causing falls, accidents, or severe injuries. Also avoid getting up too fast from a sitting or lying position, or you may feel dizzy. What are the possible side effects of oxycodone? Get emergency medical help if you have signs of an allergic reaction: hives, difficult breathing, swelling of your face, lips, tongue, or throat. Opioid medicine can slow or stop your breathing, and may occur, especially if you drink alcohol or use other drugs that cause drowsiness or slow breathing. A person caring for you should give naloxone and/or seek emergency medical attention if you have slow breathing with long pauses, blue colored lips, or if you are hard to wake up. Call your doctor at once if you have: slow heart rate, weak pulse, fainting, slow breathing (breathing may stop); chest pain, fast or pounding heartbeats; a seizure, extreme drowsiness; or decreased adrenal gland hormones--nausea, vomiting, stomach pain, loss of appetite, feeling tired or light-headed, muscle or joint pain, skin discoloration, craving salty foods. Serious breathing problems may be more likely in older adults and in those who are debilitated or have wasting syndrome or chronic breathing disorders. Seek medical attention right away if you have symptoms of serotonin syndrome, such as: agitation, hallucinations, fever, sweating, shivering, fast heart rate, muscle stiffness, twitching, loss of coordination, nausea, vomiting, or diarrhea. Common side effects may include: sleep problems (insomnia), itching; drowsiness, headache, dizziness, tiredness; or constipation, stomach pain, nausea, vomiting. This is not a complete list of side effects and others may occur. Call your doctor for medical advice about side effects. You may report side effects to FDA at 7-288-YQM-5371. What other drugs will affect oxycodone? You may have a fatal oxycodone overdose if you start or stop using certain medicines. Tell your doctor about all your medications. Tell your doctor about all your medications especially if you use medicine to treat HIV, antibiotic, antifungal medication, or seizure medication. Many other drugs can be dangerous when used with opioid medicine. Tell your doctor if you also use: medicine for allergies, asthma, blood pressure, motion sickness, irritable bowel, or overactive bladder; other opioid medicines, a benzodiazepine sedative like Valium, Klonopin, or Xanax; sleep medicine, muscle relaxers, or other drugs that make you drowsy; or drugs that affect serotonin, such as antidepressants, stimulants, or medicine for migraines or Parkinson's disease. This list is not complete and many other drugs may affect oxycodone. This includes prescription and lkar-axg-olmfktb medicines, vitamins, and herbal products. Not all possible drug interactions are listed here. Where can I get more information? Your doctor or pharmacist can provide more information about oxycodone. Remember, keep this and all other medicines out of the reach of children, never share your medicines with others, and use this medication only for the indication prescribed. Every effort has been made to ensure that the information provided by [employer]. ('[employer]') is accurate, up-to-date, and complete, but no guarantee is made to that effect. Drug information contained herein may be time sensitive. [employer] information has been compiled for use by healthcare practitioners and consumers in the [place] and therefore [employer] does not warrant that uses outside of the [place] are appropriate, unless specifically indicated otherwise. [employer]'s drug information does not endorse drugs, diagnose patients or recommend therapy. [employer] drug information is an informational resource designed to assist licensed healthcare practitioners in caring for their patients and/or to serve consumers viewing this service as a supplement to, and not a substitute for, the expertise, skill, knowledge and judgment of healthcare practitioners. The absence of a warning for a given drug or drug combination in no way should be construed to indicate that the drug or drug combination is safe, effective or appropriate for any given patient. [employer] does not assume any responsibility for any aspect of healthcare administered with the aid of information [employer] provides. The information contained herein is not intended to cover all possible uses, directions, precautions, warnings, drug interactions, allergic reactions, or adverse effects. If you have questions about the drugs you are taking, check with your doctor, nurse or pharmacist. Copyright 5251-5653 [employer]. Version: 17.. Revision Date: 03/28/2023. Education Materials Acute Pain, Adult Acute pain is a type of sudden pain that may last for just a few days or for as long as six months. It is often related to an illness, injury, or medical procedure. Acute pain may be mild, moderate, or severe. Pain can make it hard for you to do your normal, daily activities. It can cause anxiety and lead to other problems if it is left untreated. Treatment depends on the cause and severity of your pain. Acute pain usually goes away once your injury has healed or you are no longer ill. Follow these instructions at home: Medicines Take izqh-dpn-juuhrzi and prescription medicines only as told by your health care provider. Take the lowest dose of medicine for the shortest amount of time needed to relieve the pain. If you are taking prescription pain medicine: ? Do not stop taking the medicine suddenly. Talk to your health care provider about how and when to discontinue prescription medicine. ? Do not take more pills than told by your health care provider even if your pain is severe. ? Do not take other nsyv-rjc-nwvelxm pain medicines in addition to prescription pain medicine unless told by your health care provider. ? Ask your health care provider if the medicine requires you to avoid driving or using heavy machinery. ? Ask your health care provider if the medicine can cause constipation. You may need to take these actions to prevent or treat constipation: ? Drink enough fluid to keep your urine pale yellow. ? Eat foods that are high in fiber, such as beans, whole grains, and fresh fruits and vegetables. ? Take ryyn-bct-dicgevg or prescription medicines. ? Limit foods that are high in fat and processed sugars, such as fried or sweet foods. Managing pain, stiffness, and swelling If directed, put ice on the affected area. To do this: Put ice in a plastic bag. Place a towel between your skin and the bag. Leave the ice on for 20 minutes, 2 3 times a day. If directed, apply heat to the affected area as often as told by your health care provider. Use the heat source that your health care provider recommends, such as a moist heat pack or a heating pad. Place a towel between your skin and the heat source. Leave the heat on for 20 30 minutes. Remove the heat if your skin turns bright red. This is especially important if you are unable to feel pain, heat, or cold. You may have a greater risk of getting burned. Activity Rest as told by your health care provider. Return to your normal activities as told by your health care provider. Ask your health care provider what activities are safe for you. General instructions Check your pain level as told by your health care provider. Ask your health care provider if other strategies such as distraction, relaxation, or physical therapies can help your pain. Keep all follow-up visits as told by your health care provider. This is important. Contact a health care provider if: Your pain is not controlled by medicine. Your pain does not improve or gets worse. You have side effects from pain medicines, such as vomiting or confusion. Get help right away if you: Have severe pain. Have trouble breathing. Lose consciousness. Have chest pain or pressure that lasts for more than a few minutes, or if you have other symptoms along with chest pain, including if you: ? Have pain or discomfort in one or both arms, your back, neck, jaw, or stomach. ? Have shortness of breath. ? Break out in a cold sweat. ? Feel nauseous. ? Become light-headed. These symptoms may represent a serious problem that is an emergency. Do not wait to see if the symptoms will go away. Get medical help right away. Call your local emergency services (911 in the [place] Do not drive yourself to the hospital. Summary Acute pain may be mild, moderate, or severe. It usually goes away once your injury has healed or you are no longer ill. Take tdux-dum-owelvfo and prescription medicines only as told by your health care provider. Ask your health care provider if the medicine prescribed to you can cause constipation. Contact a health care provider if your pain is not controlled by medicine. This information is not intended to replace advice given to you by your health care provider. Make sure you discuss any questions you have with your health care provider. Document Released: 03/06/2016 Document Revised: 07/08/2019 Document Reviewed: 07/08/2019 [employer] Patient Education 2020 [employer] Additional Information VACCINATE! IT SAVES LIVES! Members of the community who have not yet received the COVID-19 vaccine and would like to receive it can visit one of [facility] vaccine clinics. There are many vaccine clinic locations within the [facility]. For locations and available times, please visit https://gettheshot.coronavirus.o hio.gov/. It is important to note that some COVID mobile vaccine clinics are held outdoors and may be canceled in rainy or stormy conditions. To learn more about pediatric vaccinations (ages 5-11), we invite you to visit the [employer] [facility] webpage. https://[email or web address]/p [email or web address]-Vsaxa-Zxkvmfczheb-Freq nxgtcg-Pvczm-Wktvhuptd.html To learn more about the COVID-19 vaccine, we invite you to visit the CDC website for a list of frequently asked questions.https://www.cdc.gov/co ronavirus/2019-ncov/vaccines/faq .html [facility] Patient Portal Access Instructions: Stay connected with your healthcare team and access your personal medical information anytime with the [facility] Patient Portal. Please follow the directions below to create your [facility] account: 1.Access the email account you provided upon registration to the hospital/physician office.2.Look for an invitation email from [facility].3.Open the email and access the invitation link: Accept Invitation to [facility].4.Fill in the required reyes to create your account. To access your account, visit [email or web address]. Click the blue button labeled Access Patient Portal and then log in with the username and password that you created in the steps above. You will be able to view your test results, lab results, a summary of your visits, upcoming appointments and more. There is also a convenient messaging option where you can send secure messages to your provider. In addition, you will have the ability to download any documents or summaries to your computer and/or send the information securely to a physician. Remember that your healthcare information is confidential, so carefully consider who you will allow to register on the [facility] Patient Portal for access to your information. You can also access the [facility] Patient Portal on the [facility] diana. Simply click on Patient Portal and then log into your account. If you would like to receive a full copy of your medical records, please contact the [facility] Medical Records Department by calling [phone], Monday through Monday between 8 a.m. and 4:30 p.m. HOW TO SAFELY DISPOSE OF PRESCRIPTION MEDICATIONS Please use one of the following methods to safely dispose of your unused medications. 1.Use a drug disposal kit: the drug disposal pouch allows you to safely discard your old and unused drugs. Ask your nurse to give you one when you are discharged.2.Visit a local take-back location: Many local pharmacies and police departments have programs that collect old and unwanted prescription drugs. Call your local pharmacy or go to http://Taulia.[employer]/2A9Zy5r to find one close to you.3.Make use of household items: Use cat litter or old coffee grounds to dispose medications if other options are not available. Mix your drugs with these household products, seal them in an airtight container and throw it into the garbage. Call [facility]: [phone] to be sure your drugs can be disposed of in this way. Some medicines may require a different approach.4.Never flush your medications down the toilet. IF YOU HAVE BEEN PRESCRIBED AN OPIOID FOR PAIN If you have been prescribed an opioid (such as hydrocodone, oxycodone or morphine), it is critical to understand the possible side effects and risks of opioid pain medications. Even when taken as directed, opioids can have several side effects including: Tolerance, meaning you might need to take more of a medication for the same pain relief. Nausea, vomiting and/or constipation. Sleepiness, dizziness, dry mouth, confusion, depression or itching. Physical dependence, meaning you have withdrawal symptoms when a medication is stopped, can develop within a few days. KNOW YOUR RESPONSIBILITIES It is important to know exactly how much and how often to take the opioid pain medications you are prescribed. Never take opioids in higher amounts or more often than prescribed. Do not combine opioids with alcohol or other drugs that cause drowsiness, such as benzodiazepines, also known as benzos, including diazepam and alprazolam, muscle relaxants or sleep aids. Never sell or share prescription opioids. This is illegal. Store opioids in a secure place and out of reach of others (including children, family, friends and visitors). The last page of this document has been signed and retained as a CHART COPY. Signatures Patient Education Materials Acute Pain, Adult Medication Leaflets oxycodone My discharge plan and instructions have been reviewed and explained to me and I,GAYATRI Katharine Shania understand my current condition and have read and understand these discharge instructions. I have received a written copy of the plan/instructions. If I have questions, I am aware that I should contact my doctor. Patient/Conference Services Manager Signature: Date/Time: Relationship to Patient: Witness Name/Signature: Date/Time: [facility] 12-12-2023 Note Discharge Instructions Thank you for allowing [facility] to assist you with your healthcare needs. The following is important discharge information regarding your hospital visit. Your Care Team BRII GRAHAM DO Your Diagnosis Acute pain Non-rheumatic mitral regurgitation Odontoid fracture with type II morphology PAF (paroxysmal atrial fibrillation) Sternal fracture What to do next Instructions From Your Doctor Must wear [place] J hard cervical collar at all times. Prior to your follow up office visit, you will need a repeat x-ray of your neck. Please go to the [facility] Ground Floor Radiology Department on 01/01/2024 at 9:00am. From the radiology department, you will go over to the [facility], [address], for your appointment with Dr. Knight's nurse practitioner, Brenda. 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 The Following Treatments Have Been Ordered for You Discharge Labs No qualifying data available. Discharge Radiology No qualifying data available. Other Therapies Transfer of Care OT - Ordered -- Reason for therapy: SP fall, 12/12/23 9:18:00 EDT Transfer of Care PT - Ordered -- Reason for therapy: SP fall, 12/12/23 9:18:00 EDT Post Acute Orders Transfer of Care Admission Level of Care - Ordered -- Level of Care SNF, 12/12/23 9:52:38 EDT Transfer of Care Code Status - Ordered -- DNRCC-Arrest Do Not Intubate, Constant Order Transfer of Care Communication Order - Ordered -- Expect less than 30 day stay., 12/12/23 9:52:38 EDT Transfer of Care Orders Electronically Signed By - Ordered -- 12/12/23 9:18:00 EDT, RODNEY GIL DO Transfer of Care Prognosis - Ordered -- Fair, Patient Aware: Yes Transfer of Care Rehab Potential - Ordered -- Rehab potential fair, 12/12/23 9:18:23 EDT Someone Will Contact You Regarding These Home Health Referrals No home referrals have been ordered for you. No one will call you. Allergies penicillin Rash Medications Please ask your primary doctor or pharmacist before taking any other medication not listed, including over the counter drugs, herbal medications, vitamins and or supplements as they may interact with your home medications. What How Much When Why Instructions Last Dose New acetaminophen (Tylenol 325 mg oral capsule) 650 Milligram by mouth Every 6 hours New dexAMETHasone (dexAMETHasone 2 mg oral tablet) See instructions 2 tabs (4mg) TID x 1 day 2 tabs (4 mg) BID x 2 days 1 tab (2mg) BID x 2 days 1 tab (2mg) daily x 2 days 0.5 tab (1mg) day x 2 days then stop. Pickup at [id number] New oxyCODONE (oxyCODONE 5 mg oral tablet ( IMMEDIATE release )) 1 tab(s) by mouth Every 6 hours as needed for for pain Acute pain Duration: 5 Days Printed Prescription Changed warfarin (warfarin 2 mg oral tablet) 2 tab(s) by mouth Once a day Unchanged alendronate (alendronate 70 mg oral tablet) 1 tab(s) by mouth Every week Unchanged ascorbic acid (Vitamin C 500 mg oral tablet) by mouth Once a day Unchanged ascorbic acid/ chondroitin/ glucosa/ gali (Glucosamine Chondroitin) by mouth Once a day 500mg/ 400mg daily Unchanged aspirin (aspirin 81 mg oral tablet, chewable) Chewed Once a day Unchanged calcium citrate (Citracal 500 mg oral tablet) by mouth Two (2) times a day takes 600 mg daily Unchanged cholecalciferol (Vitamin D3 25 mcg (1000 intl units) oral capsule) by mouth Once a day Unchanged herbal/ nutritional product (Probiotic) Unchanged herbal/ nutritional product (saw palmetto oral capsule) takes 540 mg daily Unchanged herbal/ nutritional product (turmeric 500 mg oral capsule) takes turmeric 600mg and black pepper 5 mg Unchanged lactobacillus acidophilus (Acidophilus oral tablet) by mouth Once a day Unchanged multivitamin (B Complex 50 oral tablet) by mouth Once a day takes 125 mg daily Unchanged multivitamin (Multivitamin) 1 tab(s) by mouth Every day multivitamin and mineral Unchanged multivitamin with minerals (PreserVision AREDS 2) Chewed Two (2) times a day Unchanged propafenone (propafenone 225 mg oral tablet) 1 tab(s) by mouth Three (3) times a day Unchanged simvastatin (simvastatin 10 mg oral tablet) 0.5 tab(s) by mouth Daily at bedtime TAKE 1/ 2 (ONE-HALF) TABLET BY MOUTH EVERY DAY AT BEDTIME Unchanged vitamin E (vitamin E 200 intl units oral capsule) 1 cap by mouth Every day Pharmacy Information [id number]: [id number] [place], [place] [phone] Please take this list to your next doctor s visit. Bring all medications you take, including over the counter medications, herbals and other supplements with you to your doctor s visit. Patients and families are reminded to discard old lists and to update any records with all medication providers or retail pharmacies. Medication Leaflets oxycodone (ox i OMAIRA done) Oxaydo, OxyCONTIN, Roxicodone, RoxyBond, Xtampza ER What is the most important information I should know about oxycodone? MISUSE OF OPIOID MEDICINE CAN CAUSE ADDICTION, OVERDOSE, OR . Fatal side effects may occur if you also drink alcohol or use other drugs that cause drowsiness or slow breathing. Using opioid medicine during may cause life-threatening withdrawal symptoms in the . What is oxycodone? Oxycodone is an opioid pain medication used to treat moderate to severe pain. Oxycodone is usually given after other treatments did not work or were not tolerated. Extended-release oxycodone is for cqbtog-jus-qxdyq treatment of severe and chronic pain that requires longer treatment. This medicine is not for use on an as-needed basis. Oxycodone may also be used for purposes not listed in this medication guide. What should I discuss with my healthcare provider before taking oxycodone? You should not use oxycodone if you are allergic to it, or if you have severe asthma, breathing problems or a stomach or bowel obstruction (including paralytic ileus). Tell your doctor if you have ever had: other breathing problems, sleep apnea (breathing that stops during sleep); a head injury, brain tumor, high pressure inside the skull, or seizures, drug or alcohol addiction, or mental illness; if you have used an MAO inhibitor in the past 14 days, such as isocarboxazid, linezolid, methylene blue injection, phenelzine, or tranylcypromine; urination problems, problems with your gallbladder, pancreas, thyroid, or adrenal gland; or liver or kidney disease. Most forms of oxycodone are not approved for use in people under 18 years old. The extended-release tablets should not be given to a child younger than 11 years old. Tell your doctor if you also use stimulant medicine, opioid medicine, herbal products, or medicine for depression, mental illness, Parkinson's disease, migraine headaches, serious infections, or prevention of nausea and vomiting. An interaction with oxycodone could cause a serious condition called serotonin syndrome. May harm an unborn baby. Tell your doctor if you are or plan to become . If you use oxycodone during , your baby could be born with life-threatening withdrawal symptoms, and may need medical treatment for several weeks. Do not breastfeed. Oxycodone in breast milk can cause life-threatening side effects in a nursing baby. Long-term oxycodone may affect fertility in men or women. could be harder to achieve while either parent is using this medicine. How should I take oxycodone? Follow the directions on your prescription label and read all medication guides or instruction sheets. Never use oxycodone in larger amounts, or for longer than prescribed. Tell your doctor if you feel an increased urge to use more of this medicine. Never share opioid medicine with another person, especially someone with a history of drug addiction. MISUSE CAN CAUSE ADDICTION, OVERDOSE, OR . Keep the medicine where others cannot get to it. Selling or giving away this medicine is against the law. Never crush a pill or use the liquid to inhale the mixture or inject it into your vein. This could result in . Your dose needs may change if you switch to a different brand, strength, or form of this medicine. Avoid medication errors by using exactly as directed on the label, or as prescribed by your doctor. Stop taking all other kbbahk-mkf-vfofx opioid pain medicines when you start taking extended-release oxycodone. Swallow the extended-release forms whole to avoid exposure to a potentially fatal overdose. Do not crush, chew, break, open, or dissolve. Take the extended-release capsules with food. Read and carefully follow the instructions for use on how to prepare and take this medicine if you cannot swallow extended release capsules whole or you use a feeding tube. Ask your doctor or pharmacist if you don't understand these instructions. Measure liquid medicine with the supplied measuring device (not a kitchen spoon). You may be given other medications to help prevent or treat certain side effects. You may have withdrawal symptoms if you stop using oxycodone suddenly. Ask your doctor before stopping the medicine. Store at room temperature away from moisture and heat. Keep your medicine in a place where no one can use it improperly. Do not keep leftover medicine. Just one dose can cause in someone using it accidentally or improperly. Ask your pharmacist about a drug take-back program, or flush the unused medicine down the toilet. What happens if I miss a dose? Since oxycodone is used for pain, you are not likely to miss a dose. Skip any missed dose if it is almost time for your next dose. Do not use two doses at one time. What happens if I overdose? Seek emergency medical attention or call the Poison Help line at . An overdose can be fatal, especially in a child or person using opioid medicine without a prescription. Your doctor may recommend you get naloxone (a medicine to reverse an opioid overdose) and keep it with you at all times. A person caring for you can give the naloxone if you stop breathing or don't wake up. Your caregiver must still get emergency medical help and may need to perform CPR (cardiopulmonary resuscitation) on you while waiting for help to arrive. Anyone can buy naloxone from a pharmacy or local health department. Make sure any person caring for you knows where you keep naloxone and how to use it. What should I avoid while taking oxycodone? Do not drink alcohol or any products that contain alcohol. Dangerous side effects or could occur. Avoid driving or hazardous activity until you know how this medicine will affect you. Dizziness or drowsiness can causing falls, accidents, or severe injuries. Also avoid getting up too fast from a sitting or lying position, or you may feel dizzy. What are the possible side effects of oxycodone? Get emergency medical help if you have signs of an allergic reaction: hives, difficult breathing, swelling of your face, lips, tongue, or throat. Opioid medicine can slow or stop your breathing, and may occur, especially if you drink alcohol or use other drugs that cause drowsiness or slow breathing. A person caring for you should give naloxone and/or seek emergency medical attention if you have slow breathing with long pauses, blue colored lips, or if you are hard to wake up. Call your doctor at once if you have: slow heart rate, weak pulse, fainting, slow breathing (breathing may stop); chest pain, fast or pounding heartbeats; a seizure, extreme drowsiness; or decreased adrenal gland hormones--nausea, vomiting, stomach pain, loss of appetite, feeling tired or light-headed, muscle or joint pain, skin discoloration, craving salty foods. Serious breathing problems may be more likely in older adults and in those who are debilitated or have wasting syndrome or chronic breathing disorders. Seek medical attention right away if you have symptoms of serotonin syndrome, such as: agitation, hallucinations, fever, sweating, shivering, fast heart rate, muscle stiffness, twitching, loss of coordination, nausea, vomiting, or diarrhea. Common side effects may include: sleep problems (insomnia), itching; drowsiness, headache, dizziness, tiredness; or constipation, stomach pain, nausea, vomiting. This is not a complete list of side effects and others may occur. Call your doctor for medical advice about side effects. You may report side effects to FDA at 2-536-BXK-8076. What other drugs will affect oxycodone? You may have a fatal oxycodone overdose if you start or stop using certain medicines. Tell your doctor about all your medications. Tell your doctor about all your medications especially if you use medicine to treat HIV, antibiotic, antifungal medication, or seizure medication. Many other drugs can be dangerous when used with opioid medicine. Tell your doctor if you also use: medicine for allergies, asthma, blood pressure, motion sickness, irritable bowel, or overactive bladder; other opioid medicines, a benzodiazepine sedative like Valium, Klonopin, or Xanax; sleep medicine, muscle relaxers, or other drugs that make you drowsy; or drugs that affect serotonin, such as antidepressants, stimulants, or medicine for migraines or Parkinson's disease. This list is not complete and many other drugs may affect oxycodone. This includes prescription and hhrr-wfe-vcjijsz medicines, vitamins, and herbal products. Not all possible drug interactions are listed here. Where can I get more information? Your doctor or pharmacist can provide more information about oxycodone. Remember, keep this and all other medicines out of the reach of children, never share your medicines with others, and use this medication only for the indication prescribed. Every effort has been made to ensure that the information provided by [employer]. ('[employer]') is accurate, up-to-date, and complete, but no guarantee is made to that effect. Drug information contained herein may be time sensitive. [employer] information has been compiled for use by healthcare practitioners and consumers in the [place] and therefore [employer] does not warrant that uses outside of the [place] are appropriate, unless specifically indicated otherwise. [employer] drug information does not endorse drugs, diagnose patients or recommend therapy. [employer] drug information is an informational resource designed to assist licensed healthcare practitioners in caring for their patients and/or to serve consumers viewing this service as a supplement to, and not a substitute for, the expertise, skill, knowledge and judgment of healthcare practitioners. The absence of a warning for a given drug or drug combination in no way should be construed to indicate that the drug or drug combination is safe, effective or appropriate for any given patient. [employer] does not assume any responsibility for any aspect of healthcare administered with the aid of information [employer] provides. The information contained herein is not intended to cover all possible uses, directions, precautions, warnings, drug interactions, allergic reactions, or adverse effects. If you have questions about the drugs you are taking, check with your doctor, nurse or pharmacist. Copyright 6488-3368 [employer]. Version: 17.. Revision Date: 03/28/2023. Education Materials Acute Pain, Adult Acute pain is a type of sudden pain that may last for just a few days or for as long as six months. It is often related to an illness, injury, or medical procedure. Acute pain may be mild, moderate, or severe. Pain can make it hard for you to do your normal, daily activities. It can cause anxiety and lead to other problems if it is left untreated. Treatment depends on the cause and severity of your pain. Acute pain usually goes away once your injury has healed or you are no longer ill. Follow these instructions at home: Medicines Take ayyy-joh-bnbzlay and prescription medicines only as told by your health care provider. Take the lowest dose of medicine for the shortest amount of time needed to relieve the pain. If you are taking prescription pain medicine: ? Do not stop taking the medicine suddenly. Talk to your health care provider about how and when to discontinue prescription medicine. ? Do not take more pills than told by your health care provider even if your pain is severe. ? Do not take other vmlf-bmi-xmizwyw pain medicines in addition to prescription pain medicine unless told by your health care provider. ? Ask your health care provider if the medicine requires you to avoid driving or using heavy machinery. ? Ask your health care provider if the medicine can cause constipation. You may need to take these actions to prevent or treat constipation: ? Drink enough fluid to keep your urine pale yellow. ? Eat foods that are high in fiber, such as beans, whole grains, and fresh fruits and vegetables. ? Take tmzc-gpb-rlmvhjr or prescription medicines. ? Limit foods that are high in fat and processed sugars, such as fried or sweet foods. Managing pain, stiffness, and swelling If directed, put ice on the affected area. To do this: Put ice in a plastic bag. Place a towel between your skin and the bag. Leave the ice on for 20 minutes, 2 3 times a day. If directed, apply heat to the affected area as often as told by your health care provider. Use the heat source that your health care provider recommends, such as a moist heat pack or a heating pad. Place a towel between your skin and the heat source. Leave the heat on for 20 30 minutes. Remove the heat if your skin turns bright red. This is especially important if you are unable to feel pain, heat, or cold. You may have a greater risk of getting burned. Activity Rest as told by your health care provider. Return to your normal activities as told by your health care provider. Ask your health care provider what activities are safe for you. General instructions Check your pain level as told by your health care provider. Ask your health care provider if other strategies such as distraction, relaxation, or physical therapies can help your pain. Keep all follow-up visits as told by your health care provider. This is important. Contact a health care provider if: Your pain is not controlled by medicine. Your pain does not improve or gets worse. You have side effects from pain medicines, such as vomiting or confusion. Get help right away if you: Have severe pain. Have trouble breathing. Lose consciousness. Have chest pain or pressure that lasts for more than a few minutes, or if you have other symptoms along with chest pain, including if you: ? Have pain or discomfort in one or both arms, your back, neck, jaw, or stomach. ? Have shortness of breath. ? Break out in a cold sweat. ? Feel nauseous. ? Become light-headed. These symptoms may represent a serious problem that is an emergency. Do not wait to see if the symptoms will go away. Get medical help right away. Call your local emergency services (911 in the [place] Do not drive yourself to the hospital. Summary Acute pain may be mild, moderate, or severe. It usually goes away once your injury has healed or you are no longer ill. Take lxja-zzf-ycoouqz and prescription medicines only as told by your health care provider. Ask your health care provider if the medicine prescribed to you can cause constipation. Contact a health care provider if your pain is not controlled by medicine. This information is not intended to replace advice given to you by your health care provider. Make sure you discuss any questions you have with your health care provider. Document Released: 03/06/2016 Document Revised: 07/08/2019 Document Reviewed: 07/08/2019 [employer] Patient Education 2020 [employer] Additional Information VACCINATE! IT SAVES LIVES! Members of the community who have not yet received the COVID-19 vaccine and would like to receive it can visit one of [facility] vaccine clinics. There are many vaccine clinic locations within the [facility]. For locations and available times, please visit https://gettheshot.coronavirus.o hio.gov/. It is important to note that some COVID mobile vaccine clinics are held outdoors and may be canceled in rainy or stormy conditions. To learn more about pediatric vaccinations (ages 5-11), we invite you to visit the [facility] webpage. https://www.[facility].org/p ages/8908-Unzmo-Gjqarbvohlw-Freq ayblco-Qprdc-Uwpybpepk.html To learn more about the COVID-19 vaccine, we invite you to visit the CDC website for a list of frequently asked questions.https://www.cdc.gov/co ronavirus/2019-ncov/vaccines/faq .html [facility] Patient Portal Access Instructions: Stay connected with your healthcare team and access your personal medical information anytime with the [facility] Patient Portal. Please follow the directions below to create your [facility] account: 1.Access the email account you provided upon registration to the hospital/physician office.2.Look for an invitation email from [facility].3.Open the email and access the invitation link: Accept Invitation to [facility].4.Fill in the required reyes to create your account. To access your account, visit [email or web address]. Click the blue button labeled Access Patient Portal and then log in with the username and password that you created in the steps above. You will be able to view your test results, lab results, a summary of your visits, upcoming appointments and more. There is also a convenient messaging option where you can send secure messages to your provider. In addition, you will have the ability to download any documents or summaries to your computer and/or send the information securely to a physician. Remember that your healthcare information is confidential, so carefully consider who you will allow to register on the [facility] Patient Portal for access to your information. You can also access the [facility] Patient Portal on the [facility] diana. Simply click on Patient Portal and then log into your account. If you would like to receive a full copy of your medical records, please contact the [facility] Medical Records Department by calling [phone], Monday through Monday between 8 a.m. and 4:30 p.m. HOW TO SAFELY DISPOSE OF PRESCRIPTION MEDICATIONS Please use one of the following methods to safely dispose of your unused medications. 1.Use a drug disposal kit: the drug disposal pouch allows you to safely discard your old and unused drugs. Ask your nurse to give you one when you are discharged.2.Visit a local take-back location: Many local pharmacies and police departments have programs that collect old and unwanted prescription drugs. Call your local pharmacy or go to http://[place]ia.[employer]s/8Q4Hb2a to find one close to you.3.Make use of household items: Use cat litter or old coffee grounds to dispose medications if other options are not available. Mix your drugs with these household products, seal them in an airtight container and throw it into the garbage. Call [facility]: [phone] to be sure your drugs can be disposed of in this way. Some medicines may require a different approach.4.Never flush your medications down the toilet. IF YOU HAVE BEEN PRESCRIBED AN OPIOID FOR PAIN If you have been prescribed an opioid (such as hydrocodone, oxycodone or morphine), it is critical to understand the possible side effects and risks of opioid pain medications. Even when taken as directed, opioids can have several side effects including: Tolerance, meaning you might need to take more of a medication for the same pain relief. Nausea, vomiting and/or constipation. Sleepiness, dizziness, dry mouth, confusion, depression or itching. Physical dependence, meaning you have withdrawal symptoms when a medication is stopped, can develop within a few days. KNOW YOUR RESPONSIBILITIES It is important to know exactly how much and how often to take the opioid pain medications you are prescribed. Never take opioids in higher amounts or more often than prescribed. Do not combine opioids with alcohol or other drugs that cause drowsiness, such as benzodiazepines, also known as benzos, including diazepam and alprazolam, muscle relaxants or sleep aids. Never sell or share prescription opioids. This is illegal. Store opioids in a secure place and out of reach of others (including children, family, friends and visitors). The last page of this document has been signed and retained as a CHART COPY. Signatures Patient Education Materials Acute Pain, Adult Medication Leaflets oxycodone My discharge plan and instructions have been reviewed and explained to me and IGAYATRI R M understand my current condition and have read and understand these discharge instructions. I have received a written copy of the plan/instructions. If I have questions, I am aware that I should contact my doctor. Patient/Conference Services Manager Signature: Date/Time: Relationship to Patient: Witness Name/Signature: Date/Time: [facility] 12-12-2023 Trauma Progress note Date of Service 12/12/2023 Chief Complaint Trauma Subjective This is a split shared visit to myself and Dr. Duarte. Patient seen resting supine in bed this morning. No overnight events reported. Patient states he has increased pain at night. Objective Vitals and Measurements T: 36.5 C (Oral) TMIN: 36.5 C (Oral) TMAX: 36.8 C (Oral) HR: 59 RR: 16 BP: 129/77 SpO2: 96% Intake and Output 7AM Yesterday to 7AM Today Intake and Output (Last 24 hours) Intake Oral Intake 690.00 Supplement Intake 480.00 Output Urinary Catheter Output: 1350.00 Stool Count 0.00 Total Summary Total Intake 1170.00 Total Output 1350.00 Fluid Balance -180.00 Physical Exam General: Awake and alert and in no apparent distress. Able to answer questions and speak in full sentences. Supine in bed. HEENT: Mucous membranes moist and pink. [place] collar on. Heart: Regular rate and rhythm. S1-S2 are present. Lungs: Chest rise symmetrical. Respirations unlabored. Clear to auscultation bilaterally. Abdomen: Soft and nontender. Nondistended. No guarding or rigidity. Bowel sounds 4 quadrants. Extremities: Freely moving. Skin: Normal color for ethnicity. No pallor or diaphoresis. No jaundice. Psychiatric: Calm and cooperative. Weight Dosing Weight: 92.7 kg (12/01/23) Medications Medications (16) Active Scheduled: (10) acetaminophen 325 mg Tablet 650 mg 2 tab(s), Oral, q6h aspirin 81 mg Chewable 81 mg 1 tab(s), Chewed, qDay atorvastatin 10 mg tablet 5 mg 0.5 tab(s), Oral, qDay dexamethasone 4 mg/1 mL solution 4 mg 1 mL, IV Push, q6h lidocaine patch REMOVAL 1 EA, Miscellaneous, q24h lidocaine topical 4% patch 1 patch(es), Transdermal, q24h nystatin susp 100,000 units/mL 5 mL UD 500,000 unit(s) 5 mL, Swish & Swallow, QID polyethylene glycol 3350 - UD packet 17 gram(s) 15 mL, Oral, qDay propafenone 150 mg tablet 225 mg 1.5 tab(s), Oral, TID warfarin 2 mg tablet 4 mg 2 tab(s), Oral, qDay Continuous: (0) PRN: (6) morphine 2 mg/mL 1 mL syringe 2 mg 1 mL, IV Push, q4h morphine 4 mg/mL 1mL INJ 4 mg 1 mL, IV Push, q4h ondansetron 2 mg/ 1 mL 2 mL INJ 4 mg 2 mL, IV Push, q6h ondansetron 2 mg/ 1 mL 2 mL INJ 4 mg 2 mL, IV Push, q4h oxycodone 5 mg tablet (immediate release) 5 mg 1 tab(s), Oral, q4h tiZANidine 2 mg tablet 2 mg 1 tab(s), Oral, TID Lab Results 12/11 05:35 Protime: 23.8 H PT International Ratio: 2.0 12/10 05:51 Protime: 33.1 H PT International Ratio: 2.8 Assessment/Plan Non-rheumatic mitral regurgitation Odontoid fracture with type II morphology PAF (paroxysmal atrial fibrillation) Sternal fracture 88-year-old male who is status post fall on 11/30/2023 sustaining an odontoid fracture and sternal fracture. MRI showed impingement of dorsal aspect of the cord with associated cord edema however he was deemed too high risk for any type of neurosurgical intervention has been treated conservatively with a hard cervical collar. Vitals, labs, I/O reviewed. Patient remains afebrile and hemodynamically stable. He does not appear toxic or in any acute distress. Continues to have weakness in his right hand however he continues to have improvement. Abdomen is soft, nontender, denies any complaints of pain or nausea and vomiting. Awaiting [facility]ERT from [facility], this has been initiated. Patient and family are agreeable to go. Patient to be transferred when bed is available. PT 23.8 INR 2.[address] Duarte, please see addendum to follow. Digitally Signed by VICENTE JONES on 12/12/2023 07:45 AM [facility] 12-12-2023 Note ORIGINAL EXAMINATION: CTA OF THE AORTA WITH LOWER EXTREMITY RUNOFF 12/12/2023 1:53 pm TECHNIQUE: CTA of the pelvis and bilateral lower extremities was performed after the administration of intravenous contrast. Multiplanar reformatted images are provided for review. MIP images are provided for review. Automated exposure control, iterative reconstruction, and/or weight based adjustment of the mA/kV was utilized to reduce the radiation dose to as low as reasonably achievable. COMPARISON: None. HISTORY: ORDERING SYSTEM PROVIDED HISTORY: Reason for Exam: RECENT FALL WITH C2 FX C COLLAR ON. STERNAL FX. COLD LOWER EXTREMITES. ON THINNERS cold lower extremities FINDINGS: Nonvascular No effusion within the minimally included lung bases. The liver and bowel loops are partially excluded from the field view. The pancreas spleen and adrenals are normal. No urinary calculi or hydronephrosis. No free intraperitoneal air or fluid identified. There is a large rectal stool burden. Evaluation of the included lower extremity joints is severely limited on the provided reconstructions. There is no acute fracture or suspicious osseous lesion identified, however. VASCULAR Aorta: The abdominal aorta is normal in course and caliber. There is scattered foci of calcified atherosclerotic plaque. Visceral arteries: Hook like configuration of the celiac artery with 1.3 cm fusiform ectasia distally is suggestive of median arcuate ligament phenomenon. This appearance may be seen in asymptomatic individuals, although it has also been associated with median arcuate ligament syndrome. The superior and inferior mesenteric arteries are normal. Both renal arteries are patent. Pelvic arteries: Moderately tortuous iliac vessels. The common iliac, external iliac, and internal iliac arteries are patent. Peripheral arteries: Contrast bolus the superficial and deep femoral arteries at the level of the mid femoral diaphysis. The arterial structures are not opacified more distally. Calcified atherosclerotic plaque is seen within the below knee vessels. Venous: Dilated tortuous arises from the deep branch of the right deep femoral artery draining into the right deep femoral vein. Linear filling defect is seen within the deep femoral vein which may represent chronic thrombus or mixing artifact. Additionally, the hepatic and portal veins are partially opacified likely due to prior contrast boluses. The renal veins are opacified and appear patent. 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 This may be acquired/posttraumatic or less likely congenital. *No arterial opacification beyond the level of the mid thigh, possibly due to contrast bolus timing. Above described arteriovenous fistula would be too small to explain poor opacification. Correlate with signs and symptoms of acute limb ischemia. *Otherwise no acute traumatic abnormality identified. *Linear filling defects within the left femoral and iliac veins may represent chronic thrombus or mixing artifact. Interpreted by: Aris Bhatia Preliminary Report By: Aris Bhatia Electronically signed By Aris Bhatia Dictated Date: 12/12/2023 2:45:49 PM Prelim Date: 12/12/2023 3:12:06 PM Sign Date: 12/12/2023 3:12:06 PM Ordering Provider: VICENTE JONES [facility] 12-12-2023 Note Discharge Instructions Thank you for allowing [facility] to assist you with your healthcare needs. The following is important discharge information regarding your hospital visit. Your Care Team BRII GRAHAM DO Your Diagnosis Acute pain Non-rheumatic mitral regurgitation Odontoid fracture with type II morphology PAF (paroxysmal atrial fibrillation) Sternal fracture What to do next Instructions From Your Doctor Must wear [place] J hard cervical collar at all times. Prior to your follow up office visit, you will need a repeat x-ray of your neck. Please go to the [facility] Ground Floor Radiology Department on 01/01/2024 at 9:00am. From the radiology department, you will go over to the [facility], [address], for your appointment with Dr. Knight's nurse practitioner, Brenda. Scheduled Follow-Up Appointments Appointment Type When With Where Contact Information StatusPC OV 12/15/2023 11:45 AM EDT BRII GRAHAM DO [address] [id number] Confirmed NS OV 01/01/2024 09:45 AM EDT Neurosurgery [address] [address] Confirmed CV OV 11/26/2024 09:30 AM EDT LATRELL MAGAÑA [facility] CV Confirmed Follow Up Appointments Follow Up with [facility] [phone] When:Within 1-2 days Follow Up with BRII GRAHAM When:Within 1-2 days Where:[address] [place] [id number] [phone] Business (1) Follow Up with BRENDA NICOLE, Neurosurgery When:01/01/2024 09:45 AM EDT Where:[address] [place] [address] [phone] The Following Activity and Diet Have Been Ordered for You Transfer of Care Activity - Ordered -- Activity As Tolerated, 12/12/23 9:18:00 EDT Transfer of Care Diet - Ordered -- 12/12/23 9:18:00 EDT The Following Equipment Has Been Ordered for You No qualifying data available. The Following Treatments Have Been Ordered for You Discharge Labs No qualifying data available. Discharge Radiology No qualifying data available. Other Therapies Transfer of Care OT - Ordered -- Reason for therapy: SP fall, 12/12/23 9:18:00 EDT Transfer of Care PT - Ordered -- Reason for therapy: SP fall, 12/12/23 9:18:00 EDT Post Acute Orders Transfer of Care Admission Level of Care - Ordered -- Level of Care SNF, 12/12/23 9:52:38 EDT Transfer of Care Code Status - Ordered -- DNRCC-Arrest Do Not Intubate, Constant Order Transfer of Care Communication Order - Ordered -- Expect less than 30 day stay., 12/12/23 9:52:38 EDT Transfer of Care Orders Electronically Signed By - Ordered -- 12/12/23 9:18:00 EDT, RODNEY GIL DO Transfer of Care Prognosis - Ordered -- Fair, Patient Aware: Yes Transfer of Care Rehab Potential - Ordered -- Rehab potential fair, 12/12/23 9:18:23 EDT Someone Will Contact You Regarding These Home Health Referrals No home referrals have been ordered for you. No one will call you. Allergies penicillin Rash Medications Please ask your primary doctor or pharmacist before taking any other medication not listed, including over the counter drugs, herbal medications, vitamins and or supplements as they may interact with your home medications. What How Much When Why Instructions Last Dose New acetaminophen (Tylenol 325 mg oral capsule) 650 Milligram by mouth Every 6 hours New dexAMETHasone (dexAMETHasone 2 mg oral tablet) See instructions 2 tabs (4mg) TID x 1 day 2 tabs (4 mg) BID x 2 days 1 tab (2mg) BID x 2 days 1 tab (2mg) daily x 2 days 0.5 tab (1mg) day x 2 days then stop. Pickup at [id number] New oxyCODONE (oxyCODONE 5 mg oral tablet ( IMMEDIATE release )) 1 tab(s) by mouth Every 6 hours as needed for for pain Acute pain Duration: 5 Days Printed Prescription Changed warfarin (warfarin 2 mg oral tablet) 2 tab(s) by mouth Once a day Unchanged alendronate (alendronate 70 mg oral tablet) 1 tab(s) by mouth Every week Unchanged ascorbic acid (Vitamin C 500 mg oral tablet) by mouth Once a day Unchanged ascorbic acid/ chondroitin/ glucosa/ gali (Glucosamine Chondroitin) by mouth Once a day 500mg/ 400mg daily Unchanged aspirin (aspirin 81 mg oral tablet, chewable) Chewed Once a day Unchanged calcium citrate (Citracal 500 mg oral tablet) by mouth Two (2) times a day takes 600 mg daily Unchanged cholecalciferol (Vitamin D3 25 mcg (1000 intl units) oral capsule) by mouth Once a day Unchanged herbal/ nutritional product (Probiotic) Unchanged herbal/ nutritional product (saw palmetto oral capsule) takes 540 mg daily Unchanged herbal/ nutritional product (turmeric 500 mg oral capsule) takes turmeric 600mg and black pepper 5 mg Unchanged lactobacillus acidophilus (Acidophilus oral tablet) by mouth Once a day Unchanged multivitamin (B Complex 50 oral tablet) by mouth Once a day takes 125 mg daily Unchanged multivitamin (Multivitamin) 1 tab(s) by mouth Every day multivitamin and mineral Unchanged multivitamin with minerals (PreserVision AREDS 2) Chewed Two (2) times a day Unchanged propafenone (propafenone 225 mg oral tablet) 1 tab(s) by mouth Three (3) times a day Unchanged simvastatin (simvastatin 10 mg oral tablet) 0.5 tab(s) by mouth Daily at bedtime TAKE 1/ 2 (ONE-HALF) TABLET BY MOUTH EVERY DAY AT BEDTIME Unchanged vitamin E (vitamin E 200 intl units oral capsule) 1 cap by mouth Every day Pharmacy Information [id number]: [id number], [place] [phone] Please take this list to your next doctor s visit. Bring all medications you take, including over the counter medications, herbals and other supplements with you to your doctor s visit. Patients and families are reminded to discard old lists and to update any records with all medication providers or retail pharmacies. Additional Information VACCINATE! IT SAVES LIVES! Members of the community who have not yet received the COVID-19 vaccine and would like to receive it can visit one of [facility] vaccine clinics. There are many vaccine clinic locations within the [facility]. For locations and available times, please visit [email or web address].coronavirus.o hio.gov/. It is important to note that some COVID mobile vaccine clinics are held outdoors and may be canceled in rainy or stormy conditions. To learn more about pediatric vaccinations (ages 5-11), we invite you to visit the [facility] webpage. https://www.[facility].org/p ages/1392-Ihnlv-Tfwslubdnzk-Freq vxnqeh-Ljjax-Zfbbxbndd.html To learn more about the COVID-19 vaccine, we invite you to visit the CDC website for a list of frequently asked questions.https://www.cdc.gov/co ronavirus/2019-ncov/vaccines/faq .html [facility] Patient Portal Access Instructions: Stay connected with your healthcare team and access your personal medical information anytime with the [facility] Patient Portal. Please follow the directions below to create your [facility] account: 1.Access the email account you provided upon registration to the hospital/physician office.2.Look for an invitation email from [facility].3.Open the email and access the invitation link: Accept Invitation to [facility].4.Fill in the required reyes to create your account. To access your account, visit [email or web address]. Click the blue button labeled Access Patient Portal and then log in with the username and password that you created in the steps above. You will be able to view your test results, lab results, a summary of your visits, upcoming appointments and more. There is also a convenient messaging option where you can send secure messages to your provider. In addition, you will have the ability to download any documents or summaries to your computer and/or send the information securely to a physician. Remember that your healthcare information is confidential, so carefully consider who you will allow to register on the [facility] Patient Portal for access to your information. You can also access the [facility] Patient Portal on the [facility] diana. Simply click on Patient Portal and then log into your account. If you would like to receive a full copy of your medical records, please contact the [facility] Medical Records Department by calling [phone], Monday through Monday between 8 a.m. and 4:30 p.m. HOW TO SAFELY DISPOSE OF PRESCRIPTION MEDICATIONS Please use one of the following methods to safely dispose of your unused medications. 1.Use a drug disposal kit: the drug disposal pouch allows you to safely discard your old and unused drugs. Ask your nurse to give you one when you are discharged.2.Visit a local take-back location: Many local pharmacies and police departments have programs that collect old and unwanted prescription drugs. Call your local pharmacy or go to http://bit.[employer] Biometrics/3N6Qh5h to find one close to you.3.Make use of household items: Use cat litter or old coffee grounds to dispose medications if other options are not available. Mix your drugs with these household products, seal them in an airtight container and throw it into the garbage. Call [facility]: [phone] to be sure your drugs can be disposed of in this way. Some medicines may require a different approach.4.Never flush your medications down the toilet. IF YOU HAVE BEEN PRESCRIBED AN OPIOID FOR PAIN If you have been prescribed an opioid (such as hydrocodone, oxycodone or morphine), it is critical to understand the possible side effects and risks of opioid pain medications. Even when taken as directed, opioids can have several side effects including: Tolerance, meaning you might need to take more of a medication for the same pain relief. Nausea, vomiting and/or constipation. Sleepiness, dizziness, dry mouth, confusion, depression or itching. Physical dependence, meaning you have withdrawal symptoms when a medication is stopped, can develop within a few days. KNOW YOUR RESPONSIBILITIES It is important to know exactly how much and how often to take the opioid pain medications you are prescribed. Never take opioids in higher amounts or more often than prescribed. Do not combine opioids with alcohol or other drugs that cause drowsiness, such as benzodiazepines, also known as benzos, including diazepam and alprazolam, muscle relaxants or sleep aids. Never sell or share prescription opioids. This is illegal. Store opioids in a secure place and out of reach of others (including children, family, friends and visitors). The last page of this document has been signed and retained as a CHART COPY. Signatures Patient Education Materials Medication Leaflets My discharge plan and instructions have been reviewed and explained to me and IGAYATRI R M understand my current condition and have read and understand these discharge instructions. I have received a written copy of the plan/instructions. If I have questions, I am aware that I should contact my doctor. 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) Paroxysmal atrial fibrillation (I48.0 - ICD-10-CM) Contusion of unspecified front wall of thorax, initial encounter (S20.219A - ICD-10-CM) Nonrheumatic mitral (valve) insufficiency (I34.0 - ICD-10-CM) Unspecified injury at C2 level of cervical spinal cord, initial encounter (S14.102A - ICD-10-CM) Acute pain (R52 - ICD-10-CM) Ordered: oxyCODONE 5 mg oral tablet ( IMMEDIATE release ); Dose : 5 mg = 1 tab(s), Oral, q6h, PRN for pain, X 5 day(s), # 20 tab(s), 0 Refill(s), 12/17/23 9:24:00 EDT, Acute pain, 92.7 Fall ([id number] - PNED) Non-rheumatic mitral regurgitation (I34.0 - ICD-10-CM) Odontoid fracture with type II morphology (S12.110A - ICD-10-CM) PAF (paroxysmal atrial fibrillation) (I48.0 - ICD-10-CM) Sternal fracture (S22.20XA - ICD-10-CM) Additional Orders: Ordered: Discharge,12/12/23 9:18:00 EDT, Discharged to: Extended Care Facility Ordered: Transfer of Care Activity,Activity As Tolerated, 12/12/23 9:18:00 EDT Ordered: Transfer of Care Code Status,DNRCC-Arrest Do Not Intubate, Constant Order Ordered: Transfer of Care Diet,12/12/23 9:18:00 EDT Ordered: Transfer of Care OT,Reason for therapy: SP fall, 12/12/23 9:18:00 EDT Ordered: Transfer of Care Orders Electronically Signed By,12/12/23 9:18:00 EDT, RODNEY GIL DO Ordered: Transfer of Care PT,Reason for therapy: SP fall, 12/12/23 9:18:00 EDT Ordered: Transfer of Care Prognosis,Fair, Patient Aware: Yes Ordered: Transfer of Care Rehab Potential,Rehab potential fair, 12/12/23 9:18:23 EDT Ordered: Tylenol 325 mg oral capsule,Dose : 650 mg =, Oral, q6h, 0 Refill(s) Ordered: warfarin 2 mg oral tablet,Dose : 4 mg = 2 tab(s), Oral, qDay, 0 Refill(s) End of Orders Hospital Course This patient is an 88-year-old male who was admitted to the hospital 11/30/2023 after sustaining a fall, injuries included odontoid fracture as well as a sternal fracture. MRI was done per neurosurgery which showed impingement of dorsal aspect of the cord with associated cord edema however patient was deemed too high of a risk for any type of neurosurgical intervention. He has been can treated conservatively with a hard cervical collar. Patient was monitored closely during hospitalization. He was evaluated by PT/OT as well as speech therapy. Patient will require rehab at time of discharge. He will maintain the hard cervical collar and will follow up with neurosurgery as an outpatient. Patient remained hemodynamically stable during hospitalization. Afebrile. Patient is on Coumadin long-term, PT/INR's were monitored closely. Patient will be discharged to rehab on Coumadin 4 mg p.o. daily. Patient was able to void and move his bowels prior to discharge. Nutrition assessment was minced and moist/thin from pur ed to mildly thick and intake. Patient was discharged charged to rehab/shelter in stable condition. Follow-up with neurosurgery as well as his primary care provider. I have reviewed the [place] Automated Rx Reporting System (OARRS) report for this patient for refill pattern and other prescriber involvement as part of the appropriate surveillance for the provision of acute and chronic controlled medications. The report was requested and reviewed on the date of this entry, and was considered in the prescribing process. Allergies penicillin Rash Procedures None Consults Consult to Physician - Ordered -- 12/01/23 5:04:00 EDT, MAGAN KNIGHT MD, Routine, C2 fx Consult to Physician - Ordered -- 12/01/23 11:53:00 EDT, HOSPITALISTGERMAN (For Consultation Assignment Only NO other Orders), Routine, medical management Imaging Results and Diagnostics MRI Spine Cervical w/o Contrast Result Date: December 05, 2023 Verified By: JAYY WHITMORE MD CLINICAL STATEMENT: IMPRESSION: Type 2 C2 fracture, with anterior dislocation of the dens and C1 ring; there is impingement of the dorsal aspect of the cord and there is associated cord edema. Abnormal signal in the apical and transverse ligaments as well as the left tectorial membrane at the level of the fracture. 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 Mild multilevel degenerative changes; no stenosis XR Chest 1 View Result Date: December 04, 2023 Verified By: JOSEPH WILBURN DO CLINICAL STATEMENT: IMPRESSION: 1. Mild chronic bronchitis.2. No acute alveolar process. CT Angiography Neck w/ Contrast Result Date: November 30, 2023 Verified By: GARTH MORLYE MD CLINICAL STATEMENT: IMPRESSION: No vascular injury associated with the C2 fracture. Objective Vitals and Measurements T: 36.5 C (Oral) TMIN: 36.5 C (Oral) TMAX: 36.8 C (Oral) HR: 59 RR: 16 BP: 129/77 SpO2: 96% Weight Dosing Weight: 92.7 kg (12/01/23) Pending Labs and Studies WBC: 13.5 10^3/mcL High (12/07/23 08:13:00) RBC: 4.65 10^6/mcL (12/07/23 08:13:00) Hgb: 15.1 G/dL (12/07/23 08:13:00) Hct: 44.7 % (12/07/23 08:13:00) MCV: 96.1 fL (12/07/23 08:13:00) MCH: 32.4 pg (12/07/23 08:13:00) MCHC: 33.7 G/dL (12/07/23 08:13:00) RDW: 13 % (12/07/23 08:13:00) Platelet: 217 10^3/mcL (12/07/23 08:13:00) MPV: 9.9 fL (12/07/23 08:13:00) Monocyte Distribution Width: 19.78 (11/30/23 17:57:00) Neutrophil %: 83.9 % High (12/07/23 08:13:00) Lymphocyte %: 8.3 % Low (12/07/23 08:13:00) Monocyte %: 7.8 % (12/07/23 08:13:00) Eosinophil %: 0 % (12/07/23 08:13:00) Basophil %: 0 % (12/07/23 08:13:00) Neutrophil, Absolute: 11.4 10^3/mcL High (12/07/23 08:13:00) Lymphocyte, Absolute: 1.1 10^3/mcL (12/07/23 08:13:00) Monocyte, Absolute: 1.1 10^3/mcL (12/07/23 08:13:00) Eosinophil, Absolute: 0 10^3/mcL (12/07/23 08:13:00) Basophil, Absolute: 0 10^3/mcL (12/07/23 08:13:00) Protime: 23.8 seconds High (12/12/23 05:35:00) PT International Ratio: 2 ratio (12/12/23 05:35:00) UA Specimen Type: Calixto Catheter (12/04/23 13:14:00) UA Color: Dark YellowNovus (12/04/23 13:14:00) UA Appear: Clear (12/04/23 13:14:00) UA Spec Grav: >=1.030 Abnormal (12/04/23 13:14:00) UA Glucose: Negative. (12/04/23 13:14:00) UA Bili: Negative. (12/04/23 13:14:00) UA Ketones: Negative.1 (12/04/23 13:14:00) UA Blood: Moderate Abnormal (12/04/23 13:14:00) UA pH: 5.5 (12/04/23 13:14:00) UA Protein: 100 Abnormal (12/04/23 13:14:00) UA Urobilinogen: 1.0 (12/04/23 13:14:00) UA Nitrite: Negative. (12/04/23 13:14:00) UA Leuk Est: Small Abnormal (12/04/23 13:14:00) UA RBC: 10-20 Abnormal (12/04/23 13:14:00) UA WBC: 0-2 (12/04/23 13:14:00) UA Squam Epithelial: 0-2 (12/04/23 13:14:00) UA Mucous: Trace (12/04/23 13:14:00) UA Bacteria: Trace Abnormal (12/04/23 13:14:00) Glucose Level: 167 mg/dL High (12/07/23 08:13:00) Sodium Level: 135 mEq/L Low (12/07/23 08:13:00) Potassium Level: 4.5 mEq/L (12/07/23 08:13:00) Chloride: 101 mEq/L (12/07/23 08:13:00) CO2: 27 mEq/L (12/07/23 08:13:00) Electrolyte Balance: 7 mEq/L (12/07/23 08:13:00) BUN: 30 mg/dL High (12/07/23 08:13:00) Creatinine Lvl (s): 0.71 mg/dL (12/07/23 08:13:00) BUN/Creatinine Ratio: 42.3 ratio High (12/07/23 08:13:00) Calcium Lvl: 9 mg/dL (12/07/23 08:13:00) Total Protein: 7.2 G/dL (11/30/23 17:57:00) Albumin Level: 3.8 G/dL (11/30/23 17:57:00) Globulin: 3.4 G/dL (11/30/23 17:57:00) A/G Ratio: 1.1 ratio (11/30/23 17:57:00) Bili Total: 0.9 mg/dL (11/30/23 17:57:00) Alk Phos: 105 U/L (11/30/23 17:57:00) AST/SGOT: 36 U/L (11/30/23 17:57:00) ALT/SGPT: 41 U/L (11/30/23 17:57:00) GFR Non-: >60 (12/07/23 08:13:00) GFR : >60 (12/07/23 08:13:00) Culture Blood: See Result (12/03/23 22:07:00) Culture Blood: See Result (12/03/23 22:07:00) Code Status Code Status - Ordered -- 12/05/23 17:52:00 EDT, DNRCC-Arrest Do Not Intubate, Constant Order Admission Date 11/30/2023 Discharge Date 12/12/2023 Patient Instructions Must wear [place] J hard cervical collar at all times. Prior to your follow up office visit, you will need a repeat x-ray of your neck. Please go to the [facility] Ground Floor Radiology Department on 01/01/2024 at 9:00am. From the radiology department, you will go over to the [facility], [address], for your appointment with Dr. Knight's nurse practitioner, Brenda. Medications New Prescription acetaminophen (Tylenol 325 mg oral capsule)650 Milligram by mouth every 6 hours. oxyCODONE (oxyCODONE 5 mg oral tablet ( IMMEDIATE release ))1 tab(s) by mouth every 6 hours as needed for pain for 5 Days. Refills: 0. Changed warfarin (warfarin 2 mg oral tablet)2 tab(s) by mouth once a day. Unchanged alendronate (alendronate 70 mg oral tablet)1 tab(s) by mouth every week. Refills: 1. ascorbic acid (Vitamin C 500 mg oral tablet)by mouth once a day. ascorbic acid/chondroitin/glucosa/gali (Glucosamine Chondroitin)by mouth once a day. 500mg/400mg daily. aspirin (aspirin 81 mg oral tablet, chewable)Chewed once a day. calcium citrate (Citracal 500 mg oral tablet)by mouth two (2) times a day. takes 600 mg daily. cholecalciferol (Vitamin D3 25 mcg (1000 intl units) oral capsule)by mouth once a day. herbal/nutritional product (Probiotic) herbal/nutritional product (saw palmetto oral capsule)takes 540 mg daily. herbal/nutritional product (turmeric 500 mg oral capsule)takes turmeric 600mg and black pepper 5 mg. lactobacillus acidophilus (Acidophilus oral tablet)by mouth once a day. multivitamin (B Complex 50 oral tablet)by mouth once a day. takes 125 mg daily. multivitamin (Multivitamin)1 tab(s) by mouth every day. multivitamin and mineral. multivitamin with minerals (PreserVision AREDS 2)Chewed two (2) times a day. propafenone (propafenone 225 mg oral tablet)1 tab(s) by mouth three (3) times a day. Refills: 1. simvastatin (simvastatin 10 mg oral tablet)0.5 tab(s) by mouth daily at bedtime. TAKE 1/2 (ONE-HALF) TABLET BY MOUTH EVERY DAY AT BEDTIME. Refills: 1. vitamin E (vitamin E 200 intl units oral capsule)1 cap by mouth every day. Follow Up Follow Up with [facility] [phone] When:Within 1-2 days Follow Up with BRII GRAHAM When:Within 1-2 days Where:[address] [facility] [place] [address]- [phone] Business (1) Follow Up with BRENDA NICOLE, Neurosurgery When:01/01/2024 09:45 AM EDT Where:[address] [place] [address]- [phone] Follow Up Appointments Transfer of Care OT - Ordered -- Reason for therapy: SP fall, 12/12/23 9:18:00 EDT Transfer of Care PT - Ordered -- Reason for therapy: SP fall, 12/12/23 9:18:00 EDT Follow Up Labs/Studies Discharge Labs No Follow-up Labs Discharge Studies No Follow-up Studies Discharge Diet Transfer of Care Diet - Ordered -- 12/12/23 9:18:00 EDT Discharge Activity Transfer of Care Activity - Ordered -- Activity As Tolerated, 12/12/23 9:18:00 EDT Condition on Discharge Stable Readmission Risk/Palliative Score No qualifying data available. Discharge Disposition [facility] Information Provided To Patient and family Time Spent 20 minutes Digitally Signed by VICENTE JONES on 12/12/2023 09:39 AM [facility] 12-12-2023 Trauma Progress note Date of Service 12/12/2023 Chief Complaint Trauma Subjective This is a split shared visit to myself and Dr. Duarte. Patient seen resting supine in bed this morning. No overnight events reported. Patient states he has increased pain at night. Objective Vitals and Measurements T: 36.5 C (Oral) TMIN: 36.5 C (Oral) TMAX: 36.8 C (Oral) HR: 59 RR: 16 BP: 129/77 SpO2: 96% Intake and Output 7AM Yesterday to 7AM Today Intake and Output (Last 24 hours) Intake Oral Intake 690.00 Supplement Intake 480.00 Output Urinary Catheter Output: 1350.00 Stool Count 0.00 Total Summary Total Intake 1170.00 Total Output 1350.00 Fluid Balance -180.00 Physical Exam General: Awake and alert and in no apparent distress. Able to answer questions and speak in full sentences. Supine in bed. HEENT: Mucous membranes moist and pink. [place] collar on. Heart: Regular rate and rhythm. S1-S2 are present. Lungs: Chest rise symmetrical. Respirations unlabored. Clear to auscultation bilaterally. Abdomen: Soft and nontender. Nondistended. No guarding or rigidity. Bowel sounds 4 quadrants. Extremities: Freely moving. Skin: Normal color for ethnicity. No pallor or diaphoresis. No jaundice. Psychiatric: Calm and cooperative. Weight Dosing Weight: 92.7 kg (12/01/23) Medications Medications (16) Active Scheduled: (10) acetaminophen 325 mg Tablet 650 mg 2 tab(s), Oral, q6h aspirin 81 mg Chewable 81 mg 1 tab(s), Chewed, qDay atorvastatin 10 mg tablet 5 mg 0.5 tab(s), Oral, qDay dexamethasone 4 mg/1 mL solution 4 mg 1 mL, IV Push, q6h lidocaine patch REMOVAL 1 EA, Miscellaneous, q24h lidocaine topical 4% patch 1 patch(es), Transdermal, q24h nystatin susp 100,000 units/mL 5 mL UD 500,000 unit(s) 5 mL, Swish & Swallow, QID polyethylene glycol 3350 - UD packet 17 gram(s) 15 mL, Oral, qDay propafenone 150 mg tablet 225 mg 1.5 tab(s), Oral, TID warfarin 2 mg tablet 4 mg 2 tab(s), Oral, qDay Continuous: (0) PRN: (6) morphine 2 mg/mL 1 mL syringe 2 mg 1 mL, IV Push, q4h morphine 4 mg/mL 1mL INJ 4 mg 1 mL, IV Push, q4h ondansetron 2 mg/ 1 mL 2 mL INJ 4 mg 2 mL, IV Push, q6h ondansetron 2 mg/ 1 mL 2 mL INJ 4 mg 2 mL, IV Push, q4h oxycodone 5 mg tablet (immediate release) 5 mg 1 tab(s), Oral, q4h tiZANidine 2 mg tablet 2 mg 1 tab(s), Oral, TID Lab Results 12/11 05:35 Protime: 23.8 H PT International Ratio: 2.0 12/10 05:51 Protime: 33.1 H PT International Ratio: 2.8 Assessment/Plan Non-rheumatic mitral regurgitation Odontoid fracture with type II morphology PAF (paroxysmal atrial fibrillation) Sternal fracture 88-year-old male who is status post fall on 11/30/2023 sustaining an odontoid fracture and sternal fracture. MRI showed impingement of dorsal aspect of the cord with associated cord edema however he was deemed too high risk for any type of neurosurgical intervention has been treated conservatively with a hard cervical collar. Vitals, labs, I/O reviewed. Patient remains afebrile and hemodynamically stable. He does not appear toxic or in any acute distress. Continues to have weakness in his right hand however he continues to have improvement. Abdomen is soft, nontender, denies any complaints of pain or nausea and vomiting. Awaiting [facility]ERT from [facility], this has been initiated. Patient and family are agreeable to go. Patient to be transferred when bed is available. PT 23.8 INR 2.[address] Duarte, please see addendum to follow. Digitally Signed by VICENTE JONES on 12/12/2023 07:45 AM [facility] 12-11-2023 Note Date of Service 12/11/23 Reason for Consultation Admission From: Home Consult Skin Team re: Pressure Staging - Ordered -- 12/08/23 18:49:18 EDT Skin Team Findings Vitals and Measurements T: 36.6 C (Oral) TMIN: 36.6 C (Oral) TMAX: 36.7 C (Oral) HR: 59 RR: 16 BP: 142/79 SpO2: 97% Pressure Area Details ------Pressure Area------ No current pressure injuries noted. ------Incision/Wound------ Gluteal cleft Other: & inner buttock - Incision, Wound Surrounding Tissue: Moist Gluteal cleft Other: & inner buttock - Skin Abnormality Color: Red Gluteal cleft Other: & inner buttock - Skin Abnormality Pattern: Other: peeling epidermis noted Gluteal cleft Other: & inner buttock - Skin Abnormality Type: Moisture associated dermatitis Gluteal cleft Other: & inner buttock - Wound Bed Tissue Type: Other: thin crust (erosion) noted left perianal noted Assessments and Recommendations ------Assessments------ Current Skin/Wound Interventions: Low air loss mattress ------Recommendations------ Recommended Skin/Wound Interventions: Seat cushion, Turn and position system, Barrier cream, Turn and reposition every 2 hours, Other: preventative Education Individuals Taught: Patient Learning Readiness: Willing to learn Barriers to Learning: None evident Teaching Method: Explanation Problem List/Past Medical History Ongoing Anticoagulation goal of INR 2 to 3 Bilateral hearing loss CAD in [place] artery Grief, lost 11/2022, brother 03/2023, brother 10/2023 Hypercoagulable state due to atrial fibrillation Mixed hyperlipidemia Non-rheumatic mitral regurgitation Osteoporosis PAF (paroxysmal atrial fibrillation) Post PTCA Prediabetes Subclinical hypothyroidism TSH elevation Wears hearing aid in both ears Historical Atrial fibrillation Digitally Signed by BOB Turcios on 12/11/2023 09:34 AM [facility] 12-11-2023 Trauma Progress note Date of Service 12/11/2023 Chief Complaint Status post fall sustaining poly-traumatic injuries Subjective This is a split shared visit between myself and Dr. Gil Patient seen resting supine in bed this morning. He denied new complaint/concerns. He continues to have weakness to the right upper extremity; however, he reports that it is improving each day. Objective Vitals and Measurements T: 36.6 C (Oral) TMIN: 36.6 C (Oral) TMAX: 36.7 C (Oral) HR: 59 RR: 16 BP: 142/79 SpO2: 97% Intake and Output 7AM Yesterday to 7AM Today Intake and Output (Last 24 hours) Intake Oral Intake 1040.00 Supplement Intake 240.00 Output Urine Voided 100.00 Urinary Catheter Output: 1275.00 Stool Count 0.00 Total Summary Total Intake 1280.00 Total Output 1375.00 Fluid Balance -95.00 Physical Exam General: Awake, alert and oriented x4. In no apparent distress. Able to answer questions appropriately and speak in full sentences. Supine in bed. HEENT: Sclera anicteric. Hard cervical collar in place. Heart: S1 and S2 present. Lungs: Chest rise symmetrical. Respirations unlabored. Abdomen: Soft and nontender. Nondistended. No rigidity or guarding noted. Bowel sounds present. Extremities: Freely moving. Psychiatric: Calm and cooperative. Weight Dosing Weight: 92.7 kg (12/01/23) Medications Medications (16) Active Scheduled: (10) acetaminophen 325 mg Tablet 650 mg 2 tab(s), Oral, q6h aspirin 81 mg Chewable 81 mg 1 tab(s), Chewed, qDay atorvastatin 10 mg tablet 5 mg 0.5 tab(s), Oral, qDay dexamethasone 4 mg/1 mL solution 6 mg 1.5 mL, IV Push, q6h lidocaine patch REMOVAL 1 EA, Miscellaneous, q24h lidocaine topical 4% patch 1 patch(es), Transdermal, q24h nystatin susp 100,000 units/mL 5 mL UD 500,000 unit(s) 5 mL, Swish & Swallow, QID polyethylene glycol 3350 - UD packet 17 gram(s) 15 mL, Oral, qDay propafenone 150 mg tablet 225 mg 1.5 tab(s), Oral, TID warfarin 6 mg tablet 6 mg 1 tab(s), Oral, qDay Continuous: (0) PRN: (6) morphine 2 mg/mL 1 mL syringe 2 mg 1 mL, IV Push, q4h morphine 4 mg/mL 1mL INJ 4 mg 1 mL, IV Push, q4h ondansetron 2 mg/ 1 mL 2 mL INJ 4 mg 2 mL, IV Push, q6h ondansetron 2 mg/ 1 mL 2 mL INJ 4 mg 2 mL, IV Push, q4h oxycodone 5 mg tablet (immediate release) 5 mg 1 tab(s), Oral, q4h tiZANidine 2 mg tablet 2 mg 1 tab(s), Oral, TID Lab Results 12/09 03:50 Protime: 46.9 H PT International Ratio: 4.0 EKG No qualifying data available. Assessment/Plan Non-rheumatic mitral regurgitation Odontoid fracture with type II morphology PAF (paroxysmal atrial fibrillation) Sternal fracture This patient is an 88-year-old male who is status post fall on 11/30/2023 sustaining an odontoid fracture and sternal fracture. MRI showed impingement of the dorsal aspect of the cord with associated cord edema; however, he was deemed too high risk for any type of neurosurgical intervention and has been treated conservatively with a hard cervical collar. This morning he was seen and examined resting supine in bed. He did not appear toxic or in any acute distress. He continues to have weakness in his right hand; however, he noted improvement over the last several days. His abdomen was soft and nontender. INR is pending this morning. Vital signs and I/O have been reviewed. Plan: 1. Await INR to determine plan for his Coumadin administration 2. Patient was reevaluated by speech therapy yesterday; continue diet per their recommendations 3. Continue to encourage mobilization as patient is able 4. Await bed availability and precertification for discharge The case has been discussed with Dr. Gil. Please see his addendum for further details. Digitally Signed by BEATRIZ SCOTT on 12/11/2023 07:18 AM [facility] 12-11-2023 Trauma Progress note Date of Service 12/11/2023 Chief Complaint Status post fall sustaining poly-traumatic injuries Subjective This is a split shared visit between myself and Dr. Gil Patient seen resting supine in bed this morning. He denied new complaint/concerns. He continues to have weakness to the right upper extremity; however, he reports that it is improving each day. Objective Vitals and Measurements T: 36.6 C (Oral) TMIN: 36.6 C (Oral) TMAX: 36.7 C (Oral) HR: 59 RR: 16 BP: 142/79 SpO2: 97% Intake and Output 7AM Yesterday to 7AM Today Intake and Output (Last 24 hours) Intake Oral Intake 1040.00 Supplement Intake 240.00 Output Urine Voided 100.00 Urinary Catheter Output: 1275.00 Stool Count 0.00 Total Summary Total Intake 1280.00 Total Output 1375.00 Fluid Balance -95.00 Physical Exam General: Awake, alert and oriented x4. In no apparent distress. Able to answer questions appropriately and speak in full sentences. Supine in bed. HEENT: Sclera anicteric. Hard cervical collar in place. Heart: S1 and S2 present. Lungs: Chest rise symmetrical. Respirations unlabored. Abdomen: Soft and nontender. Nondistended. No rigidity or guarding noted. Bowel sounds present. Extremities: Freely moving. Psychiatric: Calm and cooperative. Weight Dosing Weight: 92.7 kg (12/01/23) Medications Medications (16) Active Scheduled: (10) acetaminophen 325 mg Tablet 650 mg 2 tab(s), Oral, q6h aspirin 81 mg Chewable 81 mg 1 tab(s), Chewed, qDay atorvastatin 10 mg tablet 5 mg 0.5 tab(s), Oral, qDay dexamethasone 4 mg/1 mL solution 6 mg 1.5 mL, IV Push, q6h lidocaine patch REMOVAL 1 EA, Miscellaneous, q24h lidocaine topical 4% patch 1 patch(es), Transdermal, q24h nystatin susp 100,000 units/mL 5 mL UD 500,000 unit(s) 5 mL, Swish & Swallow, QID polyethylene glycol 3350 - UD packet 17 gram(s) 15 mL, Oral, qDay propafenone 150 mg tablet 225 mg 1.5 tab(s), Oral, TID warfarin 6 mg tablet 6 mg 1 tab(s), Oral, qDay Continuous: (0) PRN: (6) morphine 2 mg/mL 1 mL syringe 2 mg 1 mL, IV Push, q4h morphine 4 mg/mL 1mL INJ 4 mg 1 mL, IV Push, q4h ondansetron 2 mg/ 1 mL 2 mL INJ 4 mg 2 mL, IV Push, q6h ondansetron 2 mg/ 1 mL 2 mL INJ 4 mg 2 mL, IV Push, q4h oxycodone 5 mg tablet (immediate release) 5 mg 1 tab(s), Oral, q4h tiZANidine 2 mg tablet 2 mg 1 tab(s), Oral, TID Lab Results 12/09 03:50 Protime: 46.9 H PT International Ratio: 4.0 EKG No qualifying data available. Assessment/Plan Non-rheumatic mitral regurgitation Odontoid fracture with type II morphology PAF (paroxysmal atrial fibrillation) Sternal fracture This patient is an 88-year-old male who is status post fall on 11/30/2023 sustaining an odontoid fracture and sternal fracture. MRI showed impingement of the dorsal aspect of the cord with associated cord edema; however, he was deemed too high risk for any type of neurosurgical intervention and has been treated conservatively with a hard cervical collar. This morning he was seen and examined resting supine in bed. He did not appear toxic or in any acute distress. He continues to have weakness in his right hand; however, he noted improvement over the last several days. His abdomen was soft and nontender. INR is pending this morning. Vital signs and I/O have been reviewed. Plan: 1. Await INR to determine plan for his Coumadin administration 2. Patient was reevaluated by speech therapy yesterday; continue diet per their recommendations 3. Continue to encourage mobilization as patient is able 4. Await bed availability and precertification for discharge The case has been discussed with Dr. Gil. Please see his addendum for further details. Digitally Signed by BEATRIZ SCOTT on 12/11/2023 07:18 AM [facility] 12-10-2023 Surgery Hospital Progress note Date of Service 12/10/2023 Chief Complaint Neck pain Subjective Patient resting comfortably in bed continues to endorse right hand weakness pain associated with the c-collar but overall doing. Well without any significant changes overnight pain controlled Objective Vitals and Measurements T: 36.4 C (Oral) TMIN: 36.4 C (Oral) TMAX: 36.7 C (Oral) HR: 53 RR: 16 BP: 127/75 SpO2: 92% Intake and Output 7AM Yesterday to 7AM Today Intake and Output (Last 24 hours) Intake Oral Intake 1090.00 Supplement Intake 370.00 Output Urine Voided 100.00 Urinary Catheter Output: 1350.00 Stool Count 0.00 Total Summary Total Intake 1460.00 Total Output 1450.00 Fluid Balance 10.00 Physical Exam No acute distress Nonlabored breathing C-collar in place Continued weakness in the right upper extremity Abdomen soft nontender Moves all extremities Weight Dosing Weight: 92.7 kg (12/01/23) Medications Medications (16) Active Scheduled: (10) acetaminophen 325 mg Tablet 650 mg 2 tab(s), Oral, q6h aspirin 81 mg Chewable 81 mg 1 tab(s), Chewed, qDay atorvastatin 10 mg tablet 5 mg 0.5 tab(s), Oral, qDay dexamethasone 4 mg/1 mL solution 6 mg 1.5 mL, IV Push, q6h lidocaine patch REMOVAL 1 EA, Miscellaneous, q24h lidocaine topical 4% patch 1 patch(es), Transdermal, q24h nystatin susp 100,000 units/mL 5 mL UD 500,000 unit(s) 5 mL, Swish & Swallow, QID polyethylene glycol 3350 - UD packet 17 gram(s) 15 mL, Oral, qDay propafenone 150 mg tablet 225 mg 1.5 tab(s), Oral, TID warfarin 6 mg tablet 6 mg 1 tab(s), Oral, qDay Continuous: (0) PRN: (6) morphine 2 mg/mL 1 mL syringe 2 mg 1 mL, IV Push, q4h morphine 4 mg/mL 1mL INJ 4 mg 1 mL, IV Push, q4h ondansetron 2 mg/ 1 mL 2 mL INJ 4 mg 2 mL, IV Push, q6h ondansetron 2 mg/ 1 mL 2 mL INJ 4 mg 2 mL, IV Push, q4h oxycodone 5 mg tablet (immediate release) 5 mg 1 tab(s), Oral, q4h tiZANidine 2 mg tablet 2 mg 1 tab(s), Oral, TID Lab Results 12/09 03:50 Protime: 46.9 H PT International Ratio: 4.0 12/08 04:48 Protime: 63.1 H PT International Ratio: 5.4 C EKG No qualifying data available. Assessment/Plan Non-rheumatic mitral regurgitation Odontoid fracture with type II morphology PAF (paroxysmal atrial fibrillation) Sternal fracture 88-year-old male Status post fall 11/30/2023 sustaining odontoid fracture and sternal fracture. Continue to hold his Coumadin otherwise vital signs remained stable. Awaiting pre-CERT for rehab. Digitally Signed by RODNEY GIL DO on 12/10/2023 11:01 AM [facility] 12-09-2023 Trauma Progress note Date of Service 12/09/2023 Chief Complaint Status post fall Subjective This is a split shared visit between myself and Dr. Gil Patient seen resting supine in bed earlier this morning. He denied any new complaints/concerns. Cervical collar remains in place. He noted improvement to the weakness in his right upper extremity. Objective Vitals and Measurements T: 36.5 C (Oral) TMIN: 36.5 C (Oral) TMAX: 37 C (Oral) HR: 57 RR: 16 BP: 137/76 SpO2: 95% Intake and Output 7AM Yesterday to 7AM Today Intake and Output (Last 24 hours) Intake Oral Intake 580.00 Output Urinary Catheter Output: 1075.00 Stool Count 1.00 Total Summary Total Intake 580.00 Total Output 1075.00 Fluid Balance -495.00 Physical Exam General: Awake and alert. In no apparent distress. Able to answer questions. Supine in bed. HEENT: Sclera anicteric. Hard cervical collar in place. Heart: S1 and S2 present. Lungs: Chest rise symmetrical. Respirations unlabored. Abdomen: Soft and nontender. Nondistended. No rigidity or guarding noted. Extremities: Freely moving. Psychiatric: Calm and cooperative. Weight Dosing Weight: 92.7 kg (12/01/23) Medications Medications (16) Active Scheduled: (10) acetaminophen 325 mg Tablet 650 mg 2 tab(s), Oral, q6h aspirin 81 mg Chewable 81 mg 1 tab(s), Chewed, qDay atorvastatin 10 mg tablet 5 mg 0.5 tab(s), Oral, qDay dexamethasone 4 mg/1 mL solution 6 mg 1.5 mL, IV Push, q6h lidocaine patch REMOVAL 1 EA, Miscellaneous, q24h lidocaine topical 4% patch 1 patch(es), Transdermal, q24h nystatin susp 100,000 units/mL 5 mL UD 500,000 unit(s) 5 mL, Swish & Swallow, QID polyethylene glycol 3350 - UD packet 17 gram(s) 15 mL, Oral, qDay propafenone 150 mg tablet 225 mg 1.5 tab(s), Oral, TID warfarin 6 mg tablet 6 mg 1 tab(s), Oral, qDay Continuous: (0) PRN: (6) morphine 2 mg/mL 1 mL syringe 2 mg 1 mL, IV Push, q4h morphine 4 mg/mL 1mL INJ 4 mg 1 mL, IV Push, q4h ondansetron 2 mg/ 1 mL 2 mL INJ 4 mg 2 mL, IV Push, q6h ondansetron 2 mg/ 1 mL 2 mL INJ 4 mg 2 mL, IV Push, q4h oxycodone 5 mg tablet (immediate release) 5 mg 1 tab(s), Oral, q4h tiZANidine 2 mg tablet 2 mg 1 tab(s), Oral, TID Lab Results 12/08 04:48 Protime: 63.1 H PT International Ratio: 5.4 C 12/07 05:47 Protime: 55.7 H PT International Ratio: 4.8 EKG No qualifying data available. Assessment/Plan This patient is a 88-year-old male who is status post fall on 11/30/2023 sustaining an odontoid fracture and sternal fracture. An MRI was completed showing impingement of the dorsal aspect of the cord with associated cord edema and he was deemed too high risk for any type of neurosurgical intervention. He is chronically anticoagulated on Coumadin due to history of atrial fibrillation. INR noted to be 5.4 this morning. Vital signs and I/O have been reviewed. On examination, he was seen resting supine in bed with a cervical collar in place. He did not appear toxic or in any acute distress. He denied new complaints or concerns. He noted improvement in his right upper extremity weakness. Plan: 1. Hold Coumadin dose today given his INR of 5.4 Repeat PT INR tomorrow 2. Continue supportive care 3. Diet as tolerated 4. Continue to encourage mobilization as patient is able 5. Patient is awaiting bed availability/precertification and a facility. The case has been discussed with Dr. Gil. Please see his addendum for further details. Digitally Signed by BEATRIZ SCOTT on 12/09/2023 08:53 AM [facility] 12-09-2023 Trauma Progress note Date of Service 12/09/2023 Chief Complaint Status post fall Subjective This is a split shared visit between myself and Dr. Gil Patient seen resting supine in bed earlier this morning. He denied any new complaints/concerns. Cervical collar remains in place. He noted improvement to the weakness in his right upper extremity. Objective Vitals and Measurements T: 36.5 C (Oral) TMIN: 36.5 C (Oral) TMAX: 37 C (Oral) HR: 57 RR: 16 BP: 137/76 SpO2: 95% Intake and Output 7AM Yesterday to 7AM Today Intake and Output (Last 24 hours) Intake Oral Intake 580.00 Output Urinary Catheter Output: 1075.00 Stool Count 1.00 Total Summary Total Intake 580.00 Total Output 1075.00 Fluid Balance -495.00 Physical Exam General: Awake and alert. In no apparent distress. Able to answer questions. Supine in bed. HEENT: Sclera anicteric. Hard cervical collar in place. Heart: S1 and S2 present. Lungs: Chest rise symmetrical. Respirations unlabored. Abdomen: Soft and nontender. Nondistended. No rigidity or guarding noted. Extremities: Freely moving. Psychiatric: Calm and cooperative. Weight Dosing Weight: 92.7 kg (12/01/23) Medications Medications (16) Active Scheduled: (10) acetaminophen 325 mg Tablet 650 mg 2 tab(s), Oral, q6h aspirin 81 mg Chewable 81 mg 1 tab(s), Chewed, qDay atorvastatin 10 mg tablet 5 mg 0.5 tab(s), Oral, qDay dexamethasone 4 mg/1 mL solution 6 mg 1.5 mL, IV Push, q6h lidocaine patch REMOVAL 1 EA, Miscellaneous, q24h lidocaine topical 4% patch 1 patch(es), Transdermal, q24h nystatin susp 100,000 units/mL 5 mL UD 500,000 unit(s) 5 mL, Swish & Swallow, QID polyethylene glycol 3350 - UD packet 17 gram(s) 15 mL, Oral, qDay propafenone 150 mg tablet 225 mg 1.5 tab(s), Oral, TID warfarin 6 mg tablet 6 mg 1 tab(s), Oral, qDay Continuous: (0) PRN: (6) morphine 2 mg/mL 1 mL syringe 2 mg 1 mL, IV Push, q4h morphine 4 mg/mL 1mL INJ 4 mg 1 mL, IV Push, q4h ondansetron 2 mg/ 1 mL 2 mL INJ 4 mg 2 mL, IV Push, q6h ondansetron 2 mg/ 1 mL 2 mL INJ 4 mg 2 mL, IV Push, q4h oxycodone 5 mg tablet (immediate release) 5 mg 1 tab(s), Oral, q4h tiZANidine 2 mg tablet 2 mg 1 tab(s), Oral, TID Lab Results 12/08 04:48 Protime: 63.1 H PT International Ratio: 5.4 C 12/07 05:47 Protime: 55.7 H PT International Ratio: 4.8 EKG No qualifying data available. Assessment/Plan This patient is a 88-year-old male who is status post fall on 11/30/2023 sustaining an odontoid fracture and sternal fracture. An MRI was completed showing impingement of the dorsal aspect of the cord with associated cord edema and he was deemed too high risk for any type of neurosurgical intervention. He is chronically anticoagulated on Coumadin due to history of atrial fibrillation. INR noted to be 5.4 this morning. Vital signs and I/O have been reviewed. On examination, he was seen resting supine in bed with a cervical collar in place. He did not appear toxic or in any acute distress. He denied new complaints or concerns. He noted improvement in his right upper extremity weakness. Plan: 1. Hold Coumadin dose today given his INR of 5.4 Repeat PT INR tomorrow 2. Continue supportive care 3. Diet as tolerated 4. Continue to encourage mobilization as patient is able 5. Patient is awaiting bed availability/precertification and a facility. The case has been discussed with Dr. Gil. Please see his addendum for further details. Digitally Signed by BEATRIZ SCOTT on 12/09/2023 08:53 AM [facility] 12-08-2023 Note . MICRO - Microbiology PROCEDURE: Blood Culture (bacterial) [*1] SOURCE: Blood BODY SITE: COLLECTED DATE/TIME: 12/03/2023 22:07 EDT RECEIVED DATE/TIME: 12/03/2023 23:06 EDT START DATE/TIME: 12/03/2023 23:07 EDT FREE TEXT SOURCE: FINAL REPORTS Final Report [] Verified Date/Time/Personnel: 12/08/2023 23:59 EDT Blood Culture: No Growth at 5 days. PRELIMINARY REPORTS Preliminary Report [] Verified Date/Time/Personnel: 12/03/2023 23:59 EDT Culture has been received in lab and is no growth to date. Routine cultures are held for 5 days. Performing Locations *1: This test was performed at: [facility], [address] [place] [address] 12-08-2023 Note . MICRO - Microbiology PROCEDURE: Blood Culture (bacterial) [*1] SOURCE: Blood BODY SITE: COLLECTED DATE/TIME: 12/03/2023 22:07 EDT RECEIVED DATE/TIME: 12/03/2023 23:06 EDT START DATE/TIME: 12/03/2023 23:07 EDT FREE TEXT SOURCE: FINAL REPORTS Final Report [] Verified Date/Time/Personnel: 12/08/2023 23:59 EDT Blood Culture: No Growth at 5 days. PRELIMINARY REPORTS Preliminary Report [] Verified Date/Time/Personnel: 12/03/2023 23:59 EDT Culture has been received in lab and is no growth to date. Routine cultures are held for 5 days. Performing Locations *1: This test was performed at: [address] 12-08-2023 Nurse Progress note ACNS documentation has been reviewed and all medications administered by student were verified prior to administration Digitally Signed by Carla Ro Teacher'S Aide on 12/08/2023 02:03 PM [facility] 12-08-2023 Palliative care Consult note Date of Service December 08, [address] Jeffery [place] Weakness Reason for Consult Goals of care Participants in Discussion Patient History of Present Illness Mr. Mendieta is an 88-year-old male never smoker past medical history significant for coronary artery disease, hyperlipidemia, A-fib on anticoagulation, and subclinical hypothyroidism. Information obtained through chart review as well as speaking with the patient. He was admitted to the hospital on November 30, 2023 status post a mechanical fall that resulted in a C2 fracture and sternal fracture. Patient sustained a fall that resulted in odontoid fracture, MRI showing impingement of the dorsal aspect of the cord associated with edema. Neurosurgical services evaluated the case and expressed he is a very high risk for surgical intervention, he was started on dexamethasone. Patient's had increased right sided upper extremity weakness. PT OT is saw and evaluated they are recommending inpatient therapy at discharge. Patient sitting up in his bedside chair. He is complaining of discomfort in his neck. He has a brace on. He is denying any chest pain, shortness of breath. Denies any abdominal pain, nausea, vomiting, diarrhea or constipation. Review of Systems As in HPI all other systems reviewed and are negative. Physical Exam Vitals and Measurements T: 36.8 C (Oral) TMIN: 36.3 C (Axillary) TMAX: 37.0 C (Oral) HR: 80 RR: 20 BP: 135/79 SpO2: 95% Weight Dosing Weight: 92.7 kg (12/01/23) GENERAL: The patient is pleasant, cooperative. No acute distress. SKIN: No skin rashes or lesions are noted. No cyanosis, clubbing. HEENT: Head is normocephalic and atraumatic. The neck is supple with a full range of motion. Cardiovascular: Regular rate and rhythm. S1S2. No murmur. No edema. Respiratory: Clear to auscultation. Unlabored. GI: Soft round and nontender. BSx4. Neurological: Alert and oriented x3. RUE weakness. Musculoskeletal: No muscle wasting. +Weakness. No gross deformity. Psych: No agitation noted. Lab Results 12/07 05:47 Protime: 55.7 H PT International Ratio: 4.8 12/06 08:13 WBC: 13.5 H Hgb: 15.1 Hct: 44.7 Platelet: 217 Neutrophil %: 83.9 H Protime: 37.3 H PT International Ratio: 3.2 Glucose Level: 167 H Sodium Level: 135 L Potassium Level: 4.5 BUN: 30.0 H Creatinine Lvl (s): 0.71 Imaging Results and Diagnostics MRI Spine Cervical w/o Contrast Result Date: December 05, 2023 Verified By: JAYY WHITMORE MD CLINICAL STATEMENT: IMPRESSION: Type 2 C2 fracture, with anterior dislocation of the dens and C1 ring; thereis impingement of the dorsal aspect of the cord and there is associated cordedema. Abnormal signal in the apical and transverse ligaments as well as the lefttectorial membrane at the level of the fracture. 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 Mild multilevel degenerative changes; no stenosis XR Chest 1 View Result Date: December 04, 2023 Verified By: JOSEPH WILBURN DO CLINICAL STATEMENT: IMPRESSION: 1. Mild chronic bronchitis.2. No acute alveolar process. CT Angiography Neck w/ Contrast Result Date: November 30, 2023 Verified By: GARTH MORLEY MD CLINICAL STATEMENT: IMPRESSION: No vascular injury associated with the C2 fracture. Palliative Assessment and Recommendations Palliative care encounter for an 88-year-old male never smoker past medical history significant for coronary artery disease, hyperlipidemia, A-fib on anticoagulation, and subclinical hypothyroidism. Patient was admitted to the hospital status post mechanical fall that resulted in a C2 fracture, sternal fracture and an odontoid fracture with MRI showing impingement of the dorsal aspect of the cord associated with edema. Patient was seen evaluated by neurosurgery, high risk for surgical intervention. Palliative care was consulted to assist with goals of care. Goals of care explained to the hospice that given the dorsal cord impingement, and risk for paralysis and difficulty rehabilitating he is hospice appropriate. Patient expresses he is not ready for that level of care, he wishes to be discharged to a rehab center for therapy services. This information was passed along to the discharge team as well as general surgery. CODE STATUS patient is a confirmed DNR CCA DNI. Advanced directives patient has a healthcare power of compliance attorney in place primary agent is his Emeli who is , first alternate is daughter Tanvi, second alternate is daughter Hannah. Neck pain patient is getting IV dexamethasone. And oxycodone 5 mg p.o. every 4 hours as needed for pain. General debility patient's been seen and evaluated by PT and OT they are recommending inpatient therapy at discharge. Dorsal aspect of the spinal cord with impingement and associated edema. Patient was started on dexamethasone IV. Neurosurgery expresses he is a high risk surgical candidate. Labs, diagnostics, hospitalist note, neurosurgery note all reviewed. Thank you very much for this consult and allowing us to participate in the care of your patient. Palliative care will be signing off the case patient is receiving goal congruent care. Problem List/Past Medical History Ongoing Anticoagulation goal of INR 2 to 3 Bilateral hearing loss CAD in [place] artery Grief, lost 11/2022, brother 03/2023, brother 10/2023 Hypercoagulable state due to atrial fibrillation Mixed hyperlipidemia Non-rheumatic mitral regurgitation Osteoporosis PAF (paroxysmal atrial fibrillation) Post PTCA Prediabetes Subclinical hypothyroidism TSH elevation Wears hearing aid in both ears Historical Atrial fibrillation Procedure/Surgical History Cataract extraction: 04/09/12 Eye muscle surgery: 06/2005 Large bowel resection: 1998 History of vasectomy: 1974 Coronary angioplasty: 07/21/35 Medications Inpatient aspirin 81 mg oral tablet, chewable, 81 mg= 1 tab(s), Chewed, qDay atorvastatin, 5 mg= 0.5 tab(s), Oral, qDay dexAMETHasone, 6 mg= 1.5 mL, IV Push, q6h lidocaine (lidocaine Patch REMOVAL), 1 EA, Miscellaneous, q24h lidocaine 4% topical patch, 1 patch(es), Transdermal, q24h Miralax Powder Packet, 17 gram(s)= 15 mL, Oral, qDay morphine, 2 mg= 1 mL, IV Push, q4h, PRN morphine, 4 mg= 1 mL, IV Push, q4h, PRN oxyCODONE 5 mg oral tablet ( IMMEDIATE release ), 5 mg= 1 tab(s), Oral, q4h, PRN propafenone, 225 mg= 1.5 tab(s), Oral, TID tiZANidine, 2 mg= 1 tab(s), Oral, TID, PRN Tylenol, 650 mg= 2 tab(s), Oral, q6h warfarin, 6 mg= 1 tab(s), Oral, qDay Zofran, 4 mg= 2 mL, IV Push, q6h, PRN Zofran, 4 mg= 2 mL, IV Push, q4h, PRN Home Acidophilus oral tablet, Oral, qDay alendronate 70 mg oral tablet, 70 mg= 1 tab(s), Oral, qWeek, 1 refills aspirin 81 mg oral tablet, chewable, Chewed, qDay B Complex 50 oral tablet, Oral, qDay Citracal 500 mg oral tablet, Oral, BID Glucosamine Chondroitin, Oral, qDay Multivitamin, 1 tab(s), Oral, Daily PreserVision AREDS 2, Chewed, BID Probiotic propafenone 225 mg oral tablet, 1 tab(s), Oral, TID, 1 refills saw palmetto oral capsule simvastatin 10 mg oral tablet, 5 mg= 0.5 tab(s), Oral, qHS, 1 refills turmeric 500 mg oral capsule Vitamin C 500 mg oral tablet, Oral, qDay Vitamin D3 25 mcg (1000 intl units) oral capsule, Oral, qDay vitamin E 200 intl units oral capsule, 200 International_Unit= 1 cap(s), Oral, Daily warfarin 1 mg oral tablet, See Instructions warfarin 5 mg oral tablet, See Instructions, 1 refills Allergies penicillin Rash Social History Alcohol Use: Never., 10/04/2018 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 Coronary arteriosclerosis: Brother and Brother. Diabetes mellitus: Brother. Heart disease: Brother. Health Status Family Member(s) Family Member(s) Relationship: Maternal Grandfather, Age: About 93 Years, Cause: old age Relationship: Maternal Grandmother, Age: About 73 Years, Cause: unknown Relationship: Paternal Grandfather, Age: About 94 Years, Cause: old age Relationship: Paternal Grandmother, Age: About 72 Years, Cause: unknown Relationship: Mother, Name: Fariha Mendieta, Age: 93 Years, Cause: Diabetes, old age Relationship: Father, Name: Garry Mendieta, Age: 89 Years, Cause: CHF after an accident. Code Status Code Status - Ordered -- 12/05/23 17:52:00 EDT, DNRCC-Arrest Do Not Intubate, Constant Order Digitally Signed by ESE GARCIA APRN-GIANNI on 12/08/2023 01:43 PM [facility] 12-05-2023 Neurological surgery Progress note Patient underwent an MRI of the cervical spine today, due to increased weakness in his right upper extremity. Patient was noted to have a type III odontoid fracture status post fall. Dr. Knight has reviewed the MRI of the cervical spine which does redemonstrate the type III odontoid fracture, but also demonstrates impingement of the dorsal aspect of the cord and associated cord edema. In addition there is abnormal signal in the apical transverse ligaments as well as the left tectorial membrane at the level of the fracture. 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 Due to these findings, Dr. Knight states the patient would require an occiput to cervical spine fusion. This is a fairly extensive surgery that would have to be done either by Dr. Chacko or by a physician at [facility]. The surgery would be high risk for patient of his age and condition. Dr. Knight plans to speak with the patient's daughter regarding the findings of the MRI of the cervical spine. He does feel the patient may be most appropriate for palliative care. This information was discussed with the attending service, trauma. Digitally Signed by EDSON VO on 12/05/2023 04:09 PM [facility] 12-05-2023 Neurological surgery Progress note Patient underwent an MRI of the cervical spine today, due to increased weakness in his right upper extremity. Patient was noted to have a type III odontoid fracture status post fall. Dr. Knight has reviewed the MRI of the cervical spine which does redemonstrate the type III odontoid fracture, but also demonstrates impingement of the dorsal aspect of the cord and associated cord edema. In addition there is abnormal signal in the apical transverse ligaments as well as the left tectorial membrane at the level of the fracture. 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 Due to these findings, Dr. Knight states the patient would require an occiput to cervical spine fusion. This is a fairly extensive surgery that would have to be done either by Dr. Chacko or by a physician at [facility]. The surgery would be high risk for patient of his age and condition. Dr. Knight plans to speak with the patient's daughter regarding the findings of the MRI of the cervical spine. He does feel the patient may be most appropriate for palliative care. This information was discussed with the attending service, trauma. Digitally Signed by EDSON VO on 12/05/2023 04:09 PM [facility] 12-05-2023 Note ORIGINAL HISTORY: Right upper extremity weakness, fracture. COMPARISON: CT 30 November 2023 TECHNIQUE: 1. Sagittal T1-weighted images. 2. Sagittal T2-weighted images with and without fat saturation. 3. Axial T1 and T2-weighted images. 4. Axial and sagittal T2*-weighted images. The patient was unable to tolerate further imaging. FINDINGS: There is a displaced type 2 fracture, with a proximally 5 mm of anterior displacement of the superior fragment. The C1 ring is similarly anteriorly displaced relative to the more inferior posterior elements. There is impingement of the dorsal aspect of the cord at the level of the fracture there is edema in the cord just above the impingement. The tectorial membrane is abnormal or disrupted on the left. There is abnormal signal in the apical ligament. There is abnormal signal in the peripheral transverse ligament versus a small amount of fluid between the transverse ligament and tectorial membrane. There is straightening of the more inferior cervical spine. There is various disc desiccation and disc space narrowing throughout. And there is a focal syrinx extending from C5-C6 through C7-T1, measuring up to 3-4 mm in diameter. There is no stenosis. IMPRESSION: Type 2 C2 fracture, with anterior dislocation of the dens and C1 ring; there is impingement of the dorsal aspect of the cord and there is associated cord edema. Abnormal signal in the apical and transverse ligaments as well as the left tectorial membrane at the level of the fracture. 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 Mild multilevel degenerative changes; no stenosis Interpreted by: Jayy Whitmore MD Preliminary Report By: Jayy Whitmore MD Electronically signed By Jayy Whitmore MD Dictated Date: 12/05/2023 2:39:59 PM Prelim Date: 12/05/2023 2:59:12 PM Sign Date: 12/05/2023 2:59:12 PM Ordering Provider: EDSON VO [facility] 12-04-2023 Progress note Date of Service 12/04/2023 This is a split shared visit between myself and Dr. Gil Chief Complaint Fever Subjective Patient resting in bedside chair. Overnight he did have a fever with Tmax 38.1. He is on 2 L nasal cannula with SpO2 90 to 94%. He denies pain at present. Patient also had urinary retention yesterday evening, a Calixto catheter was reinserted Objective Vitals and Measurements T: 37.2 C (Oral) TMIN: 37.2 C (Oral) TMAX: 38.1 C (Oral) HR: 71 RR: 16 BP: 129/72 SpO2: 90% Intake and Output 7AM Yesterday to 7AM Today Intake and Output (Last 24 hours) Intake Oral Intake 860.00 Supplement Intake 0.00 Output Urinary Catheter Output: 2300.00 Stool Count 0.00 Total Summary Total Intake 860.00 Total Output 2300.00 Fluid Balance -1440.00 Physical Exam General: He is awake and alert. No acute distress Skin: [place] warm and dry Cardiac: Regular rate and rhythm Lungs/chest: Respirations easy. Lungs are clear to station anteriorly Abdomen: Soft, nontender : Calixto to continuous drainage Weight Dosing Weight: 92.7 kg (12/01/23) Medications Medications (15) Active Scheduled: (8) acetaminophen 325 mg Tablet 650 mg 2 tab(s), Oral, q6h aspirin 81 mg Chewable 81 mg 1 tab(s), Chewed, qDay atorvastatin 10 mg tablet 5 mg 0.5 tab(s), Oral, qDay lidocaine patch REMOVAL 1 EA, Miscellaneous, q24h lidocaine topical 4% patch 1 patch(es), Transdermal, q24h polyethylene glycol 3350 - UD packet 17 gram(s) 15 mL, Oral, qDay propafenone 150 mg tablet 225 mg 1.5 tab(s), Oral, TID warfarin 6 mg tablet 6 mg 1 tab(s), Oral, qDay Continuous: (0) PRN: (7) acetaminophen-HYDROcodone 325-10 mg tablet 1 tab(s), Oral, q4h acetaminophen-HYDROcodone 325-5 mg tablet 1 tab(s), Oral, q4h morphine 2 mg/mL 1 mL syringe 2 mg 1 mL, IV Push, q4h morphine 4 mg/mL 1mL INJ 4 mg 1 mL, IV Push, q4h ondansetron 2 mg/ 1 mL 2 mL INJ 4 mg 2 mL, IV Push, q6h ondansetron 2 mg/ 1 mL 2 mL INJ 4 mg 2 mL, IV Push, q4h tiZANidine 2 mg tablet 2 mg 1 tab(s), Oral, TID Lab Results 12/02 07:17 Protime: 20.1 H PT International Ratio: 1.7 EKG No qualifying data available. Assessment/Plan Non-rheumatic mitral regurgitation Odontoid fracture with type II morphology PAF (paroxysmal atrial fibrillation) Sternal fracture This is a 88-year-old male with multiple medical comorbidities including atrial fibrillation on Coumadin, CAD, osteoporosis, hyperlipidemia. He was admitted 11/30/2023 status post mechanical fall. Injuries including C2 fracture/odontoid fracture type III and a sternal fracture. Overnight patient did have fevers with Tmax 38.1. He also had urinary retention and since a Calixto catheter has been reinserted. Morning labs are pending. He has no new complaints this morning. He denies shortness of breath Plan: 1. Encourage hourly incentive spirometry 2. Chest x-ray, urinalysis and blood cultures ordered for evaluation of fevers 3. Continue PT/OT 4. Pain control 5. DVT prophylaxis, was restarted back on his Coumadin yesterday Case discussed with Dr. Gil, addendum to follow Digitally Signed by ABBEY SANDERS DIRECTOR MEDICAL WRITING-ASSISTANT PROFESSOR OF MARINE BIOLOGY on 12/04/2023 07:51 AM [facility] 12-04-2023 Note ORIGINAL EXAMINATION: ONE XRAY VIEW OF THE CHEST 12/04/2023 9:23 am COMPARISON: CT chest 11/30/2023 HISTORY: ORDERING SYSTEM PROVIDED HISTORY: Reason for Exam: fever FINDINGS: Non optimal inspiratory effort is noted. There is prominence to the interstitial markings of both lungs. There is no cardiomegaly, pulmonary edema or pneumothorax. The skeletal elements appear intact. IMPRESSION: 1. Mild chronic bronchitis. 2. No acute alveolar process. Interpreted by: Joseph Wilburn DO Preliminary Report By: Joseph Wilburn DO Electronically signed By Joseph Wilburn DO Dictated Date: 12/04/2023 11:13:26 AM Prelim Date: 12/04/2023 11:14:59 AM Sign Date: 12/04/2023 11:14:59 AM Ordering Provider: ABBEY SANDERS [facility] 12-04-2023 Progress note Date of Service 12/04/2023 This is a split shared visit between myself and Dr. Gil Chief Complaint Fever Subjective Patient resting in bedside chair. Overnight he did have a fever with Tmax 38.1. He is on 2 L nasal cannula with SpO2 90 to 94%. He denies pain at present. Patient also had urinary retention yesterday evening, a [place] catheter was reinserted Objective Vitals and Measurements T: 37.2 C (Oral) TMIN: 37.2 C (Oral) TMAX: 38.1 C (Oral) HR: 71 RR: 16 BP: 129/72 SpO2: 90% Intake and Output 7AM Yesterday to 7AM Today Intake and Output (Last 24 hours) Intake Oral Intake 860.00 Supplement Intake 0.00 Output Urinary Catheter Output: 2300.00 Stool Count 0.00 Total Summary Total Intake 860.00 Total Output 2300.00 Fluid Balance -1440.00 Physical Exam General: He is awake and alert. No acute distress Skin: [place] warm and dry Cardiac: Regular rate and rhythm Lungs/chest: Respirations easy. Lungs are clear to station anteriorly Abdomen: Soft, nontender : [place] to continuous drainage Weight Dosing Weight: 92.7 kg (12/01/23) Medications Medications (15) Active Scheduled: (8) acetaminophen 325 mg Tablet 650 mg 2 tab(s), Oral, q6h aspirin 81 mg Chewable 81 mg 1 tab(s), Chewed, qDay atorvastatin 10 mg tablet 5 mg 0.5 tab(s), Oral, qDay lidocaine patch REMOVAL 1 EA, Miscellaneous, q24h lidocaine topical 4% patch 1 patch(es), Transdermal, q24h polyethylene glycol 3350 - UD packet 17 gram(s) 15 mL, Oral, qDay propafenone 150 mg tablet 225 mg 1.5 tab(s), Oral, TID warfarin 6 mg tablet 6 mg 1 tab(s), Oral, qDay Continuous: (0) PRN: (7) acetaminophen-HYDROcodone 325-10 mg tablet 1 tab(s), Oral, q4h acetaminophen-HYDROcodone 325-5 mg tablet 1 tab(s), Oral, q4h morphine 2 mg/mL 1 mL syringe 2 mg 1 mL, IV Push, q4h morphine 4 mg/mL 1mL INJ 4 mg 1 mL, IV Push, q4h ondansetron 2 mg/ 1 mL 2 mL INJ 4 mg 2 mL, IV Push, q6h ondansetron 2 mg/ 1 mL 2 mL INJ 4 mg 2 mL, IV Push, q4h tiZANidine 2 mg tablet 2 mg 1 tab(s), Oral, TID Lab Results 12/02 07:17 Protime: 20.1 H PT International Ratio: 1.7 EKG No qualifying data available. Assessment/Plan Non-rheumatic mitral regurgitation Odontoid fracture with type II morphology PAF (paroxysmal atrial fibrillation) Sternal fracture This is a 88-year-old male with multiple medical comorbidities including atrial fibrillation on Coumadin, CAD, osteoporosis, hyperlipidemia. He was admitted 11/30/2023 status post mechanical fall. Injuries including C2 fracture/odontoid fracture type III and a sternal fracture. Overnight patient did have fevers with Tmax 38.1. He also had urinary retention and since a [place] catheter has been reinserted. Morning labs are pending. He has no new complaints this morning. He denies shortness of breath Plan: 1. Encourage hourly incentive spirometry 2. Chest x-ray, urinalysis and blood cultures ordered for evaluation of fevers 3. Continue PT/OT 4. Pain control 5. DVT prophylaxis, was restarted back on his Coumadin yesterday Case discussed with Dr. Gil, addendum to follow Digitally Signed by ABBEY SANDERS on 12/04/2023 07:51 AM [facility] 12-03-2023 Surgery Hospital Progress note Date of Service 12/03/2023 Chief Complaint Generalized immobility, neck pain Subjective Patient is out of bed. He is able to swallow and tolerating some oral intake. His chief complaint is that of debilitation and neck pain. He is looking forward to discharge to rehab at [facility]. His family is present. Objective Vitals and Measurements T: 37.9 C (Oral) TMIN: 37.0 C (Oral) TMAX: 38.0 C (Oral) HR: 73 RR: 20 BP: 118/65 SpO2: 94% Intake and Output 7AM Yesterday to 7AM Today Intake and Output (Last 24 hours) Intake Oral Intake 780.00 Supplement Intake 0.00 Output Urinary Catheter Output: 2850.00 Stool Count 0.00 Total Summary Total Intake 780.00 Total Output 2850.00 Fluid Balance -2069.00 Physical Exam Cervical collar in place No JVD Severely hard of hearing bilaterally No wheezing rhonchi or rales Abdomen is soft scaphoid without guarding tenderness or rebound No calf tenderness Weight Dosing Weight: 92.7 kg (12/01/23) Medications Medications (15) Active Scheduled: (8) acetaminophen 325 mg Tablet 650 mg 2 tab(s), Oral, q6h aspirin 81 mg Chewable 81 mg 1 tab(s), Chewed, qDay atorvastatin 10 mg tablet 5 mg 0.5 tab(s), Oral, qDay lidocaine patch REMOVAL 1 EA, Miscellaneous, q24h lidocaine topical 4% patch 1 patch(es), Transdermal, q24h polyethylene glycol 3350 - UD packet 17 gram(s) 15 mL, Oral, qDay propafenone 150 mg tablet 225 mg 1.5 tab(s), Oral, TID warfarin 6 mg tablet 6 mg 1 tab(s), Oral, qDay Continuous: (0) PRN: (7) acetaminophen-HYDROcodone 325-10 mg tablet 1 tab(s), Oral, q4h acetaminophen-HYDROcodone 325-5 mg tablet 1 tab(s), Oral, q4h morphine 2 mg/mL 1 mL syringe 2 mg 1 mL, IV Push, q4h morphine 4 mg/mL 1mL INJ 4 mg 1 mL, IV Push, q4h ondansetron 2 mg/ 1 mL 2 mL INJ 4 mg 2 mL, IV Push, q6h ondansetron 2 mg/ 1 mL 2 mL INJ 4 mg 2 mL, IV Push, q4h tiZANidine 2 mg tablet 2 mg 1 tab(s), Oral, TID Lab Results 12/02 07:17 Protime: 20.1 H PT International Ratio: 1.7 12/01 05:13 WBC: 13.1 H Hgb: 14.4 Hct: 42.7 Platelet: 145 L Neutrophil %: 75.3 H Protime: 25.1 H PT International Ratio: 2.2 Glucose Level: 117 H Sodium Level: 136 Potassium Level: 4.2 BUN: 19.0 Creatinine Lvl (s): 0.87 EKG No qualifying data available. Assessment/Plan Non-rheumatic mitral regurgitation Odontoid fracture with type II morphology Patient to be refitted for c-collar prior to discharge Continue physical Occupational Therapy Resume home medications Maximize nutrition Aggressive pulmonary toilet Anticipate discharge in next 24 to 48 hours PAF (paroxysmal atrial fibrillation) Sternal fracture Orders: Bedside Commode (CS supply)(BSC (CS Supply)), 12/03/23 10:33:00 EDT, Up to 300 lbs (136 kg), Weight (kg) 92.7, Quantity 1, Stat Digitally Signed by DORINDA HUBBARD MD on 12/03/2023 12:07 PM [facility] 12-02-2023 Note Date of Service 12/02/2023 Chief Complaint Neck pain Subjective On exam, patient sitting up in the chair. Family present. States neck pain has improved since yesterday. Endorses right upper extremity weakness although paresthesias have improved body wide. No events overnight. He is hemodynamically stable. States oral intake has been poor as this is difficult to chew food with a cervical collar in place and it also exacerbates his neck pain. Objective Vitals and Measurements T: 37 C (Oral) TMIN: 36.9 C (Oral) TMAX: 37.3 C (Oral) HR: 70 (Monitored) RR: 18 BP: 90/59 SpO2: 95% HT: 177.8 cm WT: 92.7 kg BMI: 29.32 Intake and Output 7AM Yesterday to 7AM Today Intake and Output (Last 24 hours) Intake Oral Intake 650.00 Supplement Intake 0.00 Output Urinary Catheter Output: 1150.00 Stool Count 0.00 Total Summary Total Intake 650.00 Total Output 1150.00 Fluid Balance -500.00 Physical Exam Vitals Signs(Last 24 hrs)__ Last Charted Minimum Maximum Temp 37(DEC 01 11:58) 36.9(NOV 30 23:42) 37.3(NOV 30 14:09) Heart Rate 70(DEC 01 11:58) 70(DEC 01 11:58) 84(DEC 01 07:03) SBP 90(DEC 01 11:58) 90(DEC 01 11:58) 131(NOV 30 14:09) DBP L 59(DEC 01 11:58) L 59(DEC 01 11:58) 81(NOV 30 14:09) Physical Exam General: No acute distress. Alert and Appropriate. Cervical collar noted. Hard of hearing. Lungs: Bilaterally diminished breath sounds with no crepitation or wheeze. Unlabored Cardiovascular: Heart is regular rhythm, S1S2, No extra-audible heart tones Abdomen: Abdomen is semifirm, nontender. Rounded/Obese. Bowel sounds positive all four quadrants. Neurological: The patient is awake, oriented to time, people and place. Following simple commands, moving all extremities. No sensation loss with light touch. 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 Weight Dosing Weight: 92.7 kg (12/01/23) Medications Medications (14) Active Scheduled: (7) acetaminophen 325 mg Tablet 650 mg 2 tab(s), Oral, q6h aspirin 81 mg Chewable 81 mg 1 tab(s), Chewed, qDay atorvastatin 10 mg tablet 5 mg 0.5 tab(s), Oral, qDay lidocaine patch REMOVAL 1 EA, Miscellaneous, q24h lidocaine topical 4% patch 1 patch(es), Transdermal, q24h polyethylene glycol 3350 - UD packet 17 gram(s) 15 mL, Oral, qDay propafenone 150 mg tablet 225 mg 1.5 tab(s), Oral, TID Continuous: (0) PRN: (7) acetaminophen-HYDROcodone 325-10 mg tablet 1 tab(s), Oral, q4h acetaminophen-HYDROcodone 325-5 mg tablet 1 tab(s), Oral, q4h morphine 2 mg/mL 1 mL syringe 2 mg 1 mL, IV Push, q4h morphine 4 mg/mL 1mL INJ 4 mg 1 mL, IV Push, q4h ondansetron 2 mg/ 1 mL 2 mL INJ 4 mg 2 mL, IV Push, q6h ondansetron 2 mg/ 1 mL 2 mL INJ 4 mg 2 mL, IV Push, q4h tiZANidine 2 mg tablet 2 mg 1 tab(s), Oral, TID Lab Results 12/01 05:13 WBC: 13.1 H Hgb: 14.4 Hct: 42.7 Platelet: 145 L Neutrophil %: 75.3 H Protime: 25.1 H PT International Ratio: 2.2 Glucose Level: 117 H Sodium Level: 136 Potassium Level: 4.2 BUN: 19.0 Creatinine Lvl (s): 0.87 11/30 14:00 WBC: 16.1 H Hgb: 15.6 Hct: 46.5 Platelet: 164 Neutrophil %: 81.8 H Protime: 27.1 H PT International Ratio: 2.3 EKG No qualifying data available. Assessment/Plan C2/Odontoid fracture type III Sternal fracture with retrosternal hematoma Possible central cord syndrome Paroxysmal atrial fibrillation on Coumadin Hyperlipidemia CAD Mitral regurgitation Osteoporosis C2/Odontoid fracture type III, plan and pain control per primary team and neurosurgery. He was fitted with [place] J collar. Plan to treat conservatively. States pain more controlled today. Patient evaluated by OT, recommending inpatient therapy. Pending placement he lives alone. Poor intake due to pain and difficulty eating due to cervical collar. Will order nutritional supplement shakes. Sternal fracture with retrosternal hematoma, Okay to resume anticoagulation when appropriate per primary team recommendations. Hemoglobin remained stable. Paroxysmal atrial fibrillation, Continue home regimen of propafenone. Currently in sinus rhythm. Hyperlipidemia, statin CAD, continue aspirin We will sign off. Thank you for allowing her to the care of your patient. Plan of care discussed with patient. All questions answered. Patient verbalized understanding is agreeable to plan of care. Discussed with my collaborating physician Dr. Carrillo. This dictation was performed using voice recognition software and may include grammatical and/or spelling errors. Anticipated Date of Discharge Per primary team Time Spent 34 minutes Digitally Signed by EDSON RAMOS on 12/02/2023 12:24 PM [facility] 12-02-2023 Surgery Hospital Progress note Date of Service 12/02/2023 Chief Complaint Generalized debilitation status post fall Subjective Patient is severely hard of hearing. His family is present. He is having expected soreness and discomfort. He is swallowing but has very little appetite. He denies any nausea or vomiting. Most of the discomfort is focused around his neck. He is in a neck brace. The numbness and tingling in his hands is improving Objective Vitals and Measurements T: 37.3 C (Oral) TMIN: 36.9 C (Oral) TMAX: 37.3 C (Oral) HR: 80 (Monitored) RR: 16 BP: 122/80 SpO2: 93% HT: 177.8 cm WT: 92.7 kg BMI: 29.32 Intake and Output 7AM Yesterday to 7AM Today Intake and Output (Last 24 hours) Intake Oral Intake 530.00 Output Urinary Catheter Output: 1150.00 Stool Count 0.00 Total Summary Total Intake 530.00 Total Output 1150.00 Fluid Balance -620.00 Physical Exam Normocephalic/atraumatic extract motions intact No JVD Mucous membranes pink and tacky No wheezing rhonchi or rales Abdomen soft without guarding tenderness rebound Skin warm pale and dry No calf tenderness Patient shows appropriate insight affect and judgment Severely hard of hearing bilaterally Weight Dosing Weight: 92.7 kg (12/01/23) Medications Medications (14) Active Scheduled: (7) acetaminophen 325 mg Tablet 650 mg 2 tab(s), Oral, q6h aspirin 81 mg Chewable 81 mg 1 tab(s), Chewed, qDay atorvastatin 10 mg tablet 5 mg 0.5 tab(s), Oral, qDay lidocaine patch REMOVAL 1 EA, Miscellaneous, q24h lidocaine topical 4% patch 1 patch(es), Transdermal, q24h polyethylene glycol 3350 - UD packet 17 gram(s) 15 mL, Oral, qDay propafenone 150 mg tablet 225 mg 1.5 tab(s), Oral, TID Continuous: (0) PRN: (7) acetaminophen-HYDROcodone 325-10 mg tablet 1 tab(s), Oral, q4h acetaminophen-HYDROcodone 325-5 mg tablet 1 tab(s), Oral, q4h morphine 2 mg/mL 1 mL syringe 2 mg 1 mL, IV Push, q4h morphine 4 mg/mL 1mL INJ 4 mg 1 mL, IV Push, q4h ondansetron 2 mg/ 1 mL 2 mL INJ 4 mg 2 mL, IV Push, q6h ondansetron 2 mg/ 1 mL 2 mL INJ 4 mg 2 mL, IV Push, q4h tiZANidine 2 mg tablet 2 mg 1 tab(s), Oral, TID Lab Results 12/01 05:13 WBC: 13.1 H Hgb: 14.4 Hct: 42.7 Platelet: 145 L Neutrophil %: 75.3 H Protime: 25.1 H PT International Ratio: 2.2 Glucose Level: 117 H Sodium Level: 136 Potassium Level: 4.2 BUN: 19.0 Creatinine Lvl (s): 0.87 11/30 14:00 WBC: 16.1 H Hgb: 15.6 Hct: 46.5 Platelet: 164 Neutrophil %: 81.8 H Protime: 27.1 H PT International Ratio: 2.3 EKG No qualifying data available. Assessment/Plan Non-rheumatic mitral regurgitation Odontoid fracture with type II morphology PAF (paroxysmal atrial fibrillation) Sternal fracture Status post fall with polytrauma. Continue cervical collar. Patient participating in physical occupational therapy. He would benefit from ECF placement for ongoing rehab Maximize nutrition Bowel regimen Monitor hemoglobin given substernal hematoma Minimize narcotics as patient is a very high fall risk Digitally Signed by DORINDA HUBBARD MD on 12/02/2023 10:50 AM [facility] 12-01-2023 Neurological surgery Consult note Date of Service 12/01/23 Reason for Consultation Odontoid fracture Referring Physician Dr. Gil History of Present Illness This is an 88-year-old male, with a past medical history of mitral valve regurgitation, paroxysmal A-fib, on Coumadin, CAD, hyperlipidemia, and osteoporosis, who is transferred from [facility] emergency department after he sustained a mechanical fall at home. It sounds as though he lost his balance, which caused him to fall. He had a CT of the cervical spine, which demonstrated an type III odontoid fracture as well as a sternal fracture. Due to these findings, he was transferred to the [facility] emergency department for further evaluation by trauma and neurosurgery. He had a CTA of the neck to ensure there is no vascular injury. This was negative for any type of vascular injury. He is on Coumadin and his INR was 2.5. He was immobilized in a hard cervical collar in the emergency department. On exam, he is awake, alert, oriented x 3. The patient's family states he is normally very independent and mobile at home. He is moving all 4 extremities strongly. He does seem to have some very mild weakness in his right tricep. He does complain of some numbness and tingling in his hands and feet. There is a possibility he sustained a mild central cord syndrome when he fell due to arthritis in the neck. He follows commands. Review of Systems Constitutional: No fever, chills, wt loss, wt gain, fatigue, or night sweats HEENT-no headaches, visual changes or hearing changes Cardiovascular: No chest pain, SOB, or or palpitations Respiratory: No cough, SOB, wheezing, or congestion. Gastrointestinal: No abd pain, nausea, vomiting, diarrhea, or loss of appetite. Genitourinary: No urinary frequency, burning, hematuria, or incontinence Musculoskeletal: Neck pain and spasm. No weakness, cramps, joint pain or swelling Skin: No rashes, lesions, or sores Neurological:+ numbness and tingling in bilateral hands and feet. No incoordination, numbness, or tingling. No gait disturbance Psychiatric: No changes in mood Physical Exam Vitals and Measurements T: 37 C (Oral) TMIN: 37 C (Oral) TMAX: 37.1 C (Oral) HR: 80 RR: 18 BP: 117/78 SpO2: 93% HT: 177.8 cm WT: 92.7 kg BMI: 29.32 Weight Dosing Weight: 92.7 kg (09/27/24) General Appearance: This patient is well-developed and well nourished, and appears stated age. No acute distress. Head: Normocephalic, Atraumatic EENT: Mucous membranes moist. No vision or hearing changes Cardiac: S1 and S2 heard without murmur, rub, or gallop. Regular rate and rhythm. Lungs: Lungs clear. Respirations easy. No shortness of breath noted. Abdomen: BSP x 4. Abd soft, nontender, nondistended. Musculoskeletal: Moves all 4 ext without difficulty Extremities: Bilateral pedal pulses palpable. No edema noted Neurological: Skin: [place], warm, and dry. Psychiatric: Mood stable. Cooperative. Lab Results No 36 Hour Lab Data Imaging Results and Diagnostics CT Angiography Neck w/ Contrast Result Date: November 30, 2023 Verified By: GARTH MORLEY MD CLINICAL STATEMENT: IMPRESSION: No vascular injury associated with the C2 fracture. Assessment/Plan Odontoid fracture: -Patient sustained a fall resulting in a type III odontoid fracture. -He has been immobilized in a [place] collar. Patient does live down in the collar, so we will consult [facility] at a goal for a pediatric [place] J collar. -It was discussed with the patient and his daughters at bedside, that for this type of fracture and due to his age, healing the fracture in a collar would be recommended. -He will remain in the collar for at least 3 months. -He is cleared from neurosurgery standpoint for a diet. -He is cleared from neurosurgery standpoint to participate with physical and Occupational Therapy. -He is complaining of significant spasms in the back of his neck. Will try tizanidine 2 mg 3 times daily as needed muscle spasms. -A lidocaine patch will also be ordered to be placed to the back of his neck. Possible central cord syndrome: -Patient is complaining of numbness and tingling in his hands and feet. He states this is not a chronic problem, but seems fairly mild. -There is a possibility he sustained a central cord syndrome due to arthritic changes in the neck bumping the spinal cord. -It was discussed with him, over time, the symptoms should hopefully improve. -He will follow-up in 1 month with a cervical spine x-ray. He will then follow-up every month with x-rays for the first [address] of the cervical spine on month 3. -His appointment will be arranged for him prior to discharge. All the above has been discussed with the patient and his daughters. They state understanding. -The trauma team was updated with the above plan. Please see Dr. Knight's addendum for further details and recommendations. Problem List/Past Medical History Ongoing Anticoagulation goal of INR 2 to 3 Bilateral hearing loss CAD in [place] artery Grief, lost 11/2022, brother 03/2023, brother 10/2023 Hypercoagulable state due to atrial fibrillation Mixed hyperlipidemia Non-rheumatic mitral regurgitation Osteoporosis PAF (paroxysmal atrial fibrillation) Post PTCA Prediabetes Subclinical hypothyroidism TSH elevation Wears hearing aid in both ears Historical Atrial fibrillation Procedure/Surgical History Cataract extraction: 04/09/12 Eye muscle surgery: 06/2005 Large bowel resection: 1998 History of vasectomy: 1974 Coronary angioplasty: 07/21/35 Medications Inpatient aspirin 81 mg oral tablet, chewable, 81 mg= 1 tab(s), Chewed, qDay atorvastatin, 5 mg= 0.5 tab(s), Oral, qDay lidocaine (lidocaine Patch REMOVAL), 1 EA, Miscellaneous, q24h lidocaine (lidocaine Patch REMOVAL), 1 EA, Miscellaneous, Once lidocaine 4% topical patch, 1 patch(es), Transdermal, q24h Miralax Powder Packet, 17 gram(s)= 15 mL, Oral, qDay morphine, 2 mg= 1 mL, IV Push, q4h, PRN morphine, 4 mg= 1 mL, IV Push, q4h, PRN [place] 325- 5 mg oral tablet, 1 tab(s), Oral, q4h, PRN [place] 325-10 mg oral tablet, 1 tab(s), Oral, q4h, PRN propafenone, 225 mg= 1.5 tab(s), Oral, TID tiZANidine, 2 mg= 1 tab(s), Oral, TID, PRN Tylenol, 650 mg= 2 tab(s), Oral, q6h Zofran, 4 mg= 2 mL, IV Push, q6h, PRN Zofran, 4 mg= 2 mL, IV Push, q4h, PRN Home Acidophilus oral tablet, Oral, qDay alendronate 70 mg oral tablet, 70 mg= 1 tab(s), Oral, qWeek, 1 refills aspirin 81 mg oral tablet, chewable, Chewed, qDay B Complex 50 oral tablet, Oral, qDay Citracal 500 mg oral tablet, Oral, BID Glucosamine Chondroitin, Oral, qDay Multivitamin, 1 tab(s), Oral, Daily PreserVision AREDS 2, Chewed, BID Probiotic propafenone 225 mg oral tablet, 1 tab(s), Oral, TID, 1 refills saw palmetto oral capsule simvastatin 10 mg oral tablet, 5 mg= 0.5 tab(s), Oral, qHS, 1 refills turmeric 500 mg oral capsule Vitamin C 500 mg oral tablet, Oral, qDay Vitamin D3 25 mcg (1000 intl units) oral capsule, Oral, qDay vitamin E 200 intl units oral capsule, 200 International_Unit= 1 cap(s), Oral, Daily warfarin 1 mg oral tablet, See Instructions warfarin 5 mg oral tablet, See Instructions, 1 refills Allergies penicillin Rash Social History Alcohol Use: Never., 10/04/2018 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 Coronary arteriosclerosis: Brother and Brother. Diabetes mellitus: Brother. Heart disease: Brother. Health Status Family Member(s) Family Member(s) Relationship: Maternal Grandfather, Age: About 93 Years, Cause: old age Relationship: Maternal Grandmother, Age: About 73 Years, Cause: unknown Relationship: Paternal Grandfather, Age: About 94 Years, Cause: old age Relationship: Paternal Grandmother, Age: About 72 Years, Cause: unknown Relationship: Mother, Name: Fariha Mendieta, Age: 93 Years, Cause: Diabetes, old age Relationship: Father, Name: Garry Mendieta, Age: 89 Years, Cause: CHF after an accident. Immunizations SARS-CoV-2 (COVID-19) mRNA-1273 vaccine: 50 mcg (04/07/21) SARS-CoV-2 (COVID-19) mRNA-1273 vaccine: 100 mcg (05/25/20) SARS-CoV-2 (COVID-19) mRNA-1273 vaccine: 100 mcg (04/27/20) tetanus/diphth/pertuss (Tdap) adult/adol: 0.5 unknown unit (09/25/23) tetanus/diphth/pertuss (Tdap) adult/adol: 0 unknown unit (05/30/12) zoster vaccine live: 0 unknown unit (03/18/14) Digitally Signed by EDSON VO on 12/01/2023 01:26 PM [facility] 12-01-2023 Consult note Date of Service 12/01/2023 Reason for Consultation Medical management Referring Physician Jed Bauer APRN History of Present Illness This 88-year-old male with a past medical history of paroxysmal atrial fibrillation on Coumadin, mitral regurgitation, CAD, hyperlipidemia, osteoporosis was transferred from [facility] to [facility] for mechanical fall resulting in multiple traumatic injuries including a C2 fracture/ Odontoid fracture type III and sternal fracture with retrosternal hematoma. Patient was outside and lost his balance, fell off a 3 foot porch, landing on concrete. Patient states he knows he hit his neck, but other details are unclear. Denies loss of consciousness. He was able to call family for help. Admitted under trauma service, neurosurgery consulted. Coumadin held. Hospitalist consulted for medical management. Neurosurgery recommending [place] collar without surgical intervention. He will need to remain in the collar for at least 3 months, follow-up with neurosurgery outpatient with repeat x-ray of the cervical spine every month and cervical spine CT scan in 3 months. Patient denies focal areas of weakness. Paresthesias reported to the upper and lower extremities bilaterally. Granddaughter at the bedside. He denies chest pain or shortness of breath at rest although he does report pain with deep breathing. No abdominal pain, nausea, vomiting. Neck pain shows mild improvement with IV morphine. Review of Systems Review of Systems: Reviewed in detail, including general health, HEENT, cardiovascular, respiratory, gastrointestinal, genitourinary, endocrine, musculoskeletal, neurologic, vascular, skin, and psychiatric. All are negative except for those listed in the History of Present Illness Physical Exam Vitals and Measurements T: 37.3 C (Oral) TMIN: 37 C (Oral) TMAX: 37.3 C (Oral) HR: 88 RR: 18 BP: 131/81 SpO2: 92% HT: 177.8 cm WT: 92.7 kg BMI: 29.32 Weight Dosing Weight: 92.7 kg (12/01/23) Vitals Signs(Last 24 hrs)__ Last Charted Minimum Maximum Temp 37.3(NOV 30 14:09) 37(NOV 30 07:05) 37.1(NOV 30 05:03) Heart Rate 93(NOV 30 04:04) 85(NOV 29 20:45) 93(NOV 30 04:04) SBP 131(NOV 30 14:09) 98(NOV 30 07:05) 139(NOV 29 21:15) DBP 81(NOV 30 14:09) L 55(NOV 30 07:05) 87(NOV 29 21:15) Physical Exam General: No acute distress. Alert and Appropriate. Immobilization [place] collar noted. Lungs: Bilaterally diminished breath sounds with no crepitation or wheeze. Unlabored Cardiovascular: Heart is regular rhythm, S1S2, No extra-audible heart tones Abdomen: Abdomen is soft, nontender. Rounded/Obese. Bowel sounds positive all four quadrants. Extremities: No clubbing, cyanosis or edema. Peripheral pulses palpable. No calf tenderness. Adequate peripheral circulation. Neurological: The patient is awake, oriented to time, people and place. Following simple commands, moving all extremities. No focal areas of weakness, no loss of sensation. Lab Results 11/30 14:00 WBC: 16.1 H Hgb: 15.6 Hct: 46.5 Platelet: 164 Neutrophil %: 81.8 H Protime: 27.1 H PT International Ratio: 2.[address] Imaging [address] CT Angiography Neck w/ Contrast Result Date: November 30, 2023 Verified By: GARTH MORLEY MD CLINICAL STATEMENT: IMPRESSION: No vascular injury associated with the C2 fracture. Assessment/Plan C2/Odontoid fracture type III Sternal fracture with retrosternal hematoma Possible central cord syndrome Paroxysmal atrial fibrillation on Coumadin Hyperlipidemia CAD Mitral regurgitation Osteoporosis C2/Odontoid fracture type III, plan and pain control per primary team and neurosurgery. Pending fitted [place] J collar. Surgery deferred, okay for regular diet. PT OT consulted for discharge recommendations. Sternal fracture with retrosternal hematoma, Coumadin currently on hold. Okay to resume when appropriate per primary team recommendations. Patient encouraged to continue incentive spirometer. Paroxysmal atrial fibrillation, Coumadin initially held due to anticipation of surgery. Okay to resume from our standpoint once cleared by primary team with retrosternal hematoma. Continue home regimen of propafenone. Hyperlipidemia, statin CAD, continue aspirin Thank you for the consult, we will continue to follow. Plan of care discussed with patient. All questions answered. Patient verbalized understanding is agreeable to plan of care. Discussed with my collaborating physician Dr. Carrillo. This dictation was performed using voice recognition software and may include grammatical and/or spelling errors. Problem List/Past Medical History Ongoing Anticoagulation goal of INR 2 to 3 Bilateral hearing loss CAD in [place] artery Grief, lost 11/2022, brother 03/2023, brother 10/2023 Hypercoagulable state due to atrial fibrillation Mixed hyperlipidemia Non-rheumatic mitral regurgitation Osteoporosis PAF (paroxysmal atrial fibrillation) Post PTCA Prediabetes Subclinical hypothyroidism TSH elevation Wears hearing aid in both ears Historical Atrial fibrillation Procedure/Surgical History Cataract extraction: 04/09/12 Eye muscle surgery: 06/2005 Large bowel resection: 1998 History of vasectomy: 1974 Coronary angioplasty: 07/21/35 Medications Inpatient aspirin 81 mg oral tablet, chewable, 81 mg= 1 tab(s), Chewed, qDay atorvastatin, 5 mg= 0.5 tab(s), Oral, qDay lidocaine (lidocaine Patch REMOVAL), 1 EA, Miscellaneous, q24h lidocaine 4% topical patch, 1 patch(es), Transdermal, q24h Miralax Powder Packet, 17 gram(s)= 15 mL, Oral, qDay morphine, 2 mg= 1 mL, IV Push, q4h, PRN morphine, 4 mg= 1 mL, IV Push, q4h, PRN Preston 325- 5 mg oral tablet, 1 tab(s), Oral, q4h, PRN Preston 325-10 mg oral tablet, 1 tab(s), Oral, q4h, PRN propafenone, 225 mg= 1.5 tab(s), Oral, TID tiZANidine, 2 mg= 1 tab(s), Oral, TID, PRN Tylenol, 650 mg= 2 tab(s), Oral, q6h Zofran, 4 mg= 2 mL, IV Push, q6h, PRN Zofran, 4 mg= 2 mL, IV Push, q4h, PRN Home Acidophilus oral tablet, Oral, qDay alendronate 70 mg oral tablet, 70 mg= 1 tab(s), Oral, qWeek, 1 refills aspirin 81 mg oral tablet, chewable, Chewed, qDay B Complex 50 oral tablet, Oral, qDay Citracal 500 mg oral tablet, Oral, BID Glucosamine Chondroitin, Oral, qDay Multivitamin, 1 tab(s), Oral, Daily PreserVision AREDS 2, Chewed, BID Probiotic propafenone 225 mg oral tablet, 1 tab(s), Oral, TID, 1 refills saw palmetto oral capsule simvastatin 10 mg oral tablet, 5 mg= 0.5 tab(s), Oral, qHS, 1 refills turmeric 500 mg oral capsule Vitamin C 500 mg oral tablet, Oral, qDay Vitamin D3 25 mcg (1000 intl units) oral capsule, Oral, qDay vitamin E 200 intl units oral capsule, 200 International_Unit= 1 cap(s), Oral, Daily warfarin 1 mg oral tablet, See Instructions warfarin 5 mg oral tablet, See Instructions, 1 refills Allergies penicillin Rash Social History Alcohol Use: Never., 10/04/2018 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 Coronary arteriosclerosis: Brother and Brother. Diabetes mellitus: Brother. Heart disease: Brother. Health Status Family Member(s) Family Member(s) Relationship: Maternal Grandfather, Age: About 93 Years, Cause: old age Relationship: Maternal Grandmother, Age: About 73 Years, Cause: unknown Relationship: Paternal Grandfather, Age: About 94 Years, Cause: old age Relationship: Paternal Grandmother, Age: About 72 Years, Cause: unknown Relationship: Mother, Name: Fariha Mendieta, Age: 93 Years, Cause: Diabetes, old age Relationship: Father, Name: Garry Mendieta, Age: 89 Years, Cause: CHF after an accident. Immunizations SARS-CoV-2 (COVID-19) mRNA-1273 vaccine: 50 mcg (04/07/21) SARS-CoV-2 (COVID-19) mRNA-1273 vaccine: 100 mcg (05/25/20) SARS-CoV-2 (COVID-19) mRNA-1273 vaccine: 100 mcg (04/27/20) tetanus/diphth/pertuss (Tdap) adult/adol: 0.5 unknown unit (09/25/23) tetanus/diphth/pertuss (Tdap) adult/adol: 0 unknown unit (05/30/12) zoster vaccine live: 0 unknown unit (03/18/14) Digitally Signed by EDSON RAMOS on 12/01/2023 03:39 PM [facility] 12-01-2023 Evaluation + Plan note Extrac jostin from: Title:History and Physical Author:TEA BAUER Date:12/01/23 1. Odontoid fracture with ty pe II morphology 2. Sternal fracture This patient is an 88-year-old gentleman with a past medical history of proximal atrial fibrillation on chronic anticoagulation Coumadin, CAD, hyperlipidemia, osteoporosis who sustained a mechanical fall resulting in polytraumatic injuries including a C2 fracture/ Odontoid fracture type III and sternal fracture. Due to these findings the patient was transferred to [facility] for definitive care and admitted to the trauma service team with consultations to neurosurgery. Vital signs, laboratory data and radiology reports have been reviewed. Plan: 1. S/p mechanical fall resulting in probably traumatic injuries -Supportive care given -Continue with multimodality pain control -Will initiate bowel regimen -Will continue to keep the patient n.p.o. until seen by neurosurgery to determine if the patient will need to undergo any surgical intervention for his C2 fracture -DVT prophylaxis SCDs, JOSTIN alvarez-will hold Coumadin at this time. 2. Odontoid fracture type III -Neurosurgery consulted appreciate their input -Once seen and evaluated by neurosurgery will order physical and occupational Therapy 3. Sternal fracture -Continue with multimodality pain control -Patient courage to use his IS 10 times hourly for cough and deep breathing 4. Paroxysmal atrial fibrillation -Will hold Coumadin at this time until seen and evaluated by neurosurgery -Will give the patient his oral antiarrhythmic Rythmol Case has been discussed with Dr. Gil. Please see his addendum to follow. Please see his addendum to follow. This document was dictated with voice recognition software and may contain grammatical errors Addendum by RODNEY GIL DO on December 01, 2023 11:30:09 EDT This is a shared split note. Agree with above dictation. Seen and examined in conjunction [employer] Patient presents as transfer after falling 3 feet onto concrete with 20-minute downtime overall most complaining of neck pain and spasming as a result denies any significant new symptoms but is endorsing some numbness and tingling throughout but still has full strength General: Awake and alert. Does not appear in distress. Able to answer questions. HEENT: Head appears normocephalic and atraumatic. No cephalohematoma. No bony step off. PERRLA 2 brisk. No raccoon sign. No mace sign. No ottorhea or rhinorrhea. Mucous membranes moist and pink. Sclerae anicteric. Heart: Regular rate and rhythm. S1S2 present and without murmur, rub or gallop. Neck: No pain with palpation to midline. C-collar in place Lungs: Chest rise symmetrical. Respirations unlabored. Trachea midline. Clear to auscultation bilaterally. Chest: No pain with palpation of the chest wall. No crepitus with palpation. Abdomen: Soft and nontender. Nondistended. No guarding or rigidity. Bowel sounds 4 quadrants. Extremities: Moving all 4 without difficulty. No evidence of cyanosis clubbing or edema. Skin: No pallor or diaphoresis. No abrasions. No lacerations. Psychiatric: Calm and cooperative. Appreciate input from all consultants we will hold his Coumadin dose for today given some of the retrosternal hematoma was present we will continue to monitor Future Appointments Appointment Date:12/15/2023 11:45:00 AM Scheduled Provider:BRII GRAHAM DO Location:[facility] Appointment Type:PC OV Appointment Date:01/01/2024 09:45:00 AM Scheduled Provider: Location:NEUROS Appointment Type:NS OV Appointment Date:11/26/2024 09:30:00 AM Scheduled Provider:LATRELL MAGAÑA Location:[facility] Appointment Type:CV OV Future Scheduled Tests Laboratory* Basic Metabolic Panel 06/28/23 Radiology* XR Spine Cervical AP/LAT 12/31/23 [facility] 09-27-2024 Neurological surgery Consult note Date of Service 12/01/23 Reason for Consultation Odontoid fracture Referring Physician Dr. Gil History of Present Illness This is an 88-year-old male, with a past medical history of mitral valve regurgitation, paroxysmal A-fib, on Coumadin, CAD, hyperlipidemia, and osteoporosis, who is transferred from [place] emergency department after he sustained a mechanical fall at home. It sounds as though he lost his balance, w hich caused him to fall. He had a CT of the cervical spine, which demonstrated an type III odontoidfracture as well as a sternal fracture. Due to these findings, he was transferred to the [place] emergency department for further evaluation by trauma and neurosurgery. He had a CTA of the neck to ensure there is no vascular injury. This was negative for any type of vascular injury. He is on Coumadin and his INR was 2.5. He was immobilized in a hard cervical collar in the emergency department. On exam, he is awake, alert, oriented x 3. The patient's family states he is normally very independent and mobile at home. He is moving all 4 extremities strongly. He does seem to have some very mildweakness in his right tricep. He does complain of some numbness and tingling in his hands and feet.There is a possibility he sustained a mild central cord syndrome when he fell due to arthritis in the neck. He follows commands. Review of Systems Constitutional: No fever, chills, wt loss, wt gain, fatigue, or night sweats HEENT-no headaches, visual changes or hearing changes Cardiovascular: No chest pain, SOB, or or palpitations Respiratory: No cough, SOB, wheezing, or congestion. Gastrointestinal: No abd pain, nausea, vomiting, diarrhea, or loss of appetite. Genitourinary: No urinary frequency, burning, hematuria, or incontinence Musculoskeletal: Neck pain and spasm. No weakness, cramps, joint pain or swelling Skin: No rashes, lesions, or sores Neurological:+ numbness and tingling in bilateral hands and feet. No incoordination, numbness, or tingling. No gait disturbance Psychiatric: No changes in mood Physical Exam Vitals and Measurements T: 37 C (Oral) TMIN: 37 C (Oral) TMAX: 37.1 C (Oral) HR: 80 RR: 18 BP: 117/78 SpO2: 93% HT: 177.8 cm WT: 92.7 kg BMI: 29.32 Weight Dosing Weight: 92.7 kg (12/01/23) General Appearance: This patient is well-developed and well nourished, and appears stated age. No acute distress. Head: Normocephalic, Atraumatic EENT: Mucous membranes moist. No vision or hearing changes Cardiac: S1 and S2 heard without murmur, rub, or gallop. Regular rate and rhythm. Lungs: Lungs clear. Respirations easy. No shortness of breath noted. Abdomen: BSP x 4. Abd soft, nontender, nondistended. Musculoskeletal: Moves all 4 ext without difficulty Extremities: Bilateral pedal pulses palpable. No edema noted Neurological: Skin: [place], warm, and dry. Psychiatric: Mood stable. Cooperative. Lab Results No 36 Hour Lab Data Imaging Results and Diagnostics CT Angiography Neck w/ Contrast Result Date: November 30, 2023 Verified By: GARTH MORLEY MD CLINICAL STATEMENT: IMPRESSION: No vascular injury associated with the C2 fracture. Assessment/Plan Odontoid fracture: -Patient sustained a fall resulting in a type III odontoid fracture. -He has been immobilized in a [place] collar. Patient does live down in the collar, so we will consult [facility] at a goal for a pediatric [place] J collar. -It was discussed with the patient and his daughters at bedside, that for this type of fracture anddue to his age, healing the fracture in a collar would be recommended. -He will remain in the collar for at least 3 months. -He is cleared from neurosurgery standpoint for a diet. -He is cleared from neurosurgery standpoint to participate with physical and Occupational Therapy. -He is complaining of significant spasms in the back of his neck. Will try tizanidine 2 mg 3 times daily as needed muscle spasms. -A lidocaine patch will also be ordered to be placed to the back of his neck. Possible central cord syndrome: -Patient is complaining of numbness and tingling in his hands and feet. He states this is not a chronic problem, but seems fairly mild. -There is a possibility he sustained a central cord syndrome due to arthritic changes in the neck bumping the spinal cord. -It was discussed with him, over time, the symptoms should hopefully improve. -He will follow-up in 1 month with a cervical spine x-ray. He will then follow- up every month with x-rays for the first [address] of the cervical spine on month 3. -His appointment will be arranged for him prior to discharge. All the above has been discussed with the patient and his daughters. They state understanding. -The trauma team was updated with the above plan. Please see Dr. Knight's addendum for further details and recommendations. Problem List/Past Medical History Ongoing Anticoagulation goal of INR 2 to 3 Bilateral hearing loss CAD in [place] artery Grief, lost 11/2022, brother 03/2023, brother 10/2023 Hypercoagulable state due to atrial fibrillation Mixed hyperlipidemia Non-rheumatic mitral regurgitation Osteoporosis PAF (paroxysmal atrial fibrillation) Post PTCA Prediabetes Subclinical hypothyroidism TSH elevation Wears hearing aid in both ears Historical Atrial fibrillation Procedure/Surgical History Cataract extraction: 04/09/12 Eye muscle surgery: 06/2005 Large bowel resection: 1998 History of vasectomy: 1974 Coronary angioplasty: 07/21/35 Medications Inpatient aspirin 81 mg oral tablet, chewable, 81 mg= 1 tab(s), Chewed, qDay atorvastatin, 5 mg= 0.5 tab(s), Oral, qDay lidocaine (lidocaine Patch REMOVAL), 1 EA, Miscellaneous, q24h lidocaine (lidocaine Patch REMOVAL), 1 EA, Miscellaneous, Once lidocaine 4% topical patch, 1 patch(es), Transdermal, q24h Miralax Powder Packet, 17 gram(s)= 15 mL, Oral, qDay morphine, 2 mg= 1 mL, IV Push, q4h, PRN morphine, 4 mg= 1 mL, IV Push, q4h, PRN Preston 325- 5 mg oral tablet, 1 tab(s), Oral, q4h, PRN Preston 325-10 mg oral tablet, 1 tab(s), Oral, q4h, PRN propafenone, 225 mg= 1.5 tab(s), Oral, TID tiZANidine, 2 mg= 1 tab(s), Oral, TID, PRN Tylenol, 650 mg= 2 tab(s), Oral, q6h Zofran, 4 mg= 2 mL, IV Push, q6h, PRN Zofran, 4 mg= 2 mL, IV Push, q4h, PRN Home Acidophilus oral tablet, Oral, qDay alendronate 70 mg oral tablet, 70 mg= 1 tab(s), Oral, qWeek, 1 refills aspirin 81 mg oral tablet, chewable, Chewed, qDay B Complex 50 oral tablet, Oral, qDay Citracal 500 mg oral tablet, Oral, BID Glucosamine Chondroitin, Oral, qDay Multivitamin, 1 tab(s), Oral, Daily PreserVision AREDS 2, Chewed, BID Probiotic propafenone 225 mg oral tablet, 1 tab(s), Oral, TID, 1 refills saw palmetto oral capsule simvastatin 10 mg oral tablet, 5 mg= 0.5 tab(s), Oral, qHS, 1 refills turmeric 500 mg oral capsule Vitamin C 500 mg oral tablet, Oral, qDay Vitamin D3 25 mcg (1000 intl units) oral capsule, Oral, qDay vitamin E 200 intl units oral capsule, 200 International_Unit= 1 cap(s), Oral, Daily warfarin 1 mg oral tablet, See Instructions warfarin 5 mg oral tablet, See Instructions, 1 refills Allergies penicillin Rash Social History Alcohol Use: Never., 10/04/2018 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 Coronary arteriosclerosis: Brother and Brother. Diabetes mellitus: Brother. Heart disease: Brother. Health Status Family Member(s) Family Member(s) Relationship: Maternal Grandfather, Age: About 93 Years, Cause: old age Relationship: Maternal Grandmother, Age: About 73 Years, Cause: unknown Relationship: Paternal Grandfather, Age: About 94 Years, Cause: old age Relationship: Paternal Grandmother, Age: About 72 Years, Cause: unknown Relationship: Mother, Name: Fariha Mendieta, Age: 93 Years, Cause: Diabetes, old age Relationship: Father, Name: Garry Mendieta, Age: 89 Years, Cause: CHF after an accident. Immunizations SARS-CoV-2 (COVID-19) mRNA-1273 vaccine: 50 mcg (04/07/21) SARS-CoV-2 (COVID-19) mRNA-1273 vaccine: 100 mcg (05/25/20) SARS-CoV-2 (COVID-19) mRNA-1273 vaccine: 100 mcg (04/27/20) tetanus/diphth/pertuss (Tdap) adult/adol: 0.5 unknown unit (09/25/23) tetanus/diphth/pertuss (Tdap) adult/adol: 0 unknown unit (05/30/12) zoster vaccine live: 0 unknown unit (03/18/14) Digitally Signed by EDSON VO on 12/01/2023 01:26 PM [id number] History and physical note Date of Service 12/01/2023 Chief Complaint Pt transferred here from [facility] following a fall History of Present Illness This is a shared split visit between myself and Dr. Gil. This patient is an 88-year-old gentleman with a PMH of who Mitral regurgitation, paroxysmal atrial fibrillation on chronic anticoagulation (Coumadin) CAD, hyperlipidemia, osteoporosis was a transfer from [place] ER who was a mechanical fall found to have a Odontoid fracture type III and sternal fracture, Due to these findings the patient was transferred to [facility] for definitive care. Whilein the emergency room patient underwent a CT angio of neck showing no vascular injury associated with the C2 fracture. Basic lab work completed showing at PT/INR of 2.5/29.5, sodium 134 glucose 143. Examination of the patient his family is at the bedside. The patient is hard hearing. Patient complaining of neck pain and spasms. He does report that he is experiencing tingling all over. Denies anynumbness. Patient reporting sternal pain with mild shortness of breath denies any abdominal pain atthis time. Patient able to move all extremities without difficulty. Review of Systems pertinent positives described above and otherwise negative. Physical Exam Vitals and Measurements T: 37 C (Oral) TMIN: 37 C (Oral) TMAX: 37.1 C (Oral) HR: 82 RR: 17 BP: 98/55 SpO2: 95% HT: 177.8 cmWT: 92.7 kg BMI: 29.32 Weight Dosing Weight: 92.7 kg (12/01/23) General: Awake and alert. Does not appear in distress. Able to answer questions. GCS 15, VIEJAS HEENT: Head appears normocephalic and atraumatic. No cephalohematoma. No bony step off. No raccoon sign. No mace sign. No otorrhea or rhinorrhea. Able to open and close mouth/jaw without pain/difficulty. Mucous membranes moist and pink. Sclerae anicteric. PERRLA Heart: Regular rate and rhythm. S1S2 present and without murmur, rub or gallop. Neck: No pain with palpation to midline. C-collar in place Back: No pain with palpation to the midline. No visible cutaneous trauma. Lungs: Chest rise symmetrical. Respirations unlabored. Trachea midline. Clear to auscultation bilaterally. 2LNC Chest: Tenderness to the chest wall. No crepitus with palpation. Abdomen: Soft and nontender. Nondistended. No guarding or rigidity. Bowel sounds 4 quadrants. Extremities: Moving all 4 without difficulty. No evidence of cyanosis clubbing or edema. Skin: No pallor or diaphoresis. No abrasions. No lacerations. Psychiatric: Calm and cooperative. Lab Results No 36 Hour Lab Data Imaging Results and Diagnostics CT Angiography Neck w/ Contrast Result Date: November 30, 2023 Verified By: GARTH MORLEY MD CLINICAL STATEMENT: IMPRESSION: No vascular injury associated with the C2 fracture. ADDENDUM: Odontoid fracture type is more consistent with type 3. Interpreted by: Garth Morley Preliminary Report By: Garth Morley Electronically signed By Garth Morley Dictated Date: 11/30/2023 6:44:23 PM Prelim Date: 11/30/2023 6:45:18 PM Sign Date: 11/30/2023 6:45:18 PM Ordering Provider: SHAYY LOFTON EXAMINATION: CT OF THE CERVICAL SPINE WITHOUT CONTRAST 11/30/2023 6:16 pm TECHNIQUE: CT of the cervical spine was performed without the administration of intravenous contrast. Multiplanar reformatted images are provided for review. Automated exposure control, iterative reconstruction, and/or weight based adjustment of the mA/kV was utilized to reduce the radiation dose to as low as reasonably achievable. COMPARISON: None. HISTORY: ORDERING SYSTEM PROVIDED HISTORY: Reason for Exam: trauma FINDINGS: BONES/ALIGNMENT: There is an acute type 2 moderately displaced fracture through the base of the odontoid with 8 mm anterior and 7 mm inferior displacement. The fracture extends into the bilateral C2 lateral masses and involves foramen transversarium, left greater than right.. The atlanto-odontoid and atlantooccipital joints appear congruent. DEGENERATIVE CHANGES: Existing degenerative changes are probably most pronounced status C4-C5 where there may be mild left neural foramen stenosis. SOFT TISSUES: There is biapical pleuroparenchymal scarring. Calcified atherosclerotic plaque is noted at the carotid bulbs bilaterally. IMPRESSION: Acute displaced type 2 odontoid fracture with extension into the bilateral C2 lateral masses and involvement of the foramen transversarium, left greater than right. CTA of the neck is recommended to evaluate for vascular injury. RECOMMENDATIONS: CTA neck. Finding of odontoid fracture was discussed with Dr. Quinonez 6:25 p.m. on 11/30/2023. CT OF THE CHEST WITH CONTRAST 11/30/2023 6:28 pm TECHNIQUE: CT of the chest was performed with the administration of intravenous contrast. Multiplanar reformatted images are provided for review. Automated exposure control, iterative reconstruction, and/or weight based adjustment of the mA/kV was utilized to reduce the radiation dose to as low as reasonably achievable. COMPARISON: None. HISTORY: ORDERING SYSTEM PROVIDED HISTORY: Reason for Exam: fall. pt is confused about nature of injury. unable to raise arms for exam. trauma FINDINGS: Mediastinum: Coronary artery calcifications. Nonaneurysmal thoracic aorta with atherosclerotic plaque. No pericardial effusion. Small to moderate amount of retrosternal blood products. Calcified mediastinal and right hilar lymph nodes. Dilated pulmonary arteries which can be seen in pulmonary arterial hypertension. Lungs/pleura: Dependent and bibasilar atelectatic changes and/or scarring. Calcified granuloma in the right upper lobe. Pulmonary vascular prominence. No pneumothorax. Is pleuroparenchymal scarring. Upper Abdomen: Colonic diverticula. Fusiform dilatation of the celiac trunk. Cortical thinning of the kidneys bilaterally. Soft Tissues/Bones: Mildly displaced and comminuted fracture of the superior sternum. Essentially nondisplaced fractures of the bilateral 3rd costochondral cartilages at the costosternal junction. Please see CT thoracic spine performed same day. Degenerative shoulders. IMPRESSION: Mildly displaced and comminuted fracture of the superior sternum. Essentially nondisplaced fractures of the bilateral 3rd costochondral cartilages at the costosternal junction. Small to moderate amount of retrosternal blood products. Interpreted by: Jim Dwyer Preliminary Report By: Jim Dwyer Electronically signed By Jim Dwyer Dictated Date: 11/30/2023 6:33:16 PM Prelim Date: 11/30/2023 6:40:54 PM Sign Date: 11/30/2023 6:40:54 PM Ordering Provider: SHAYY HUA CT OF THE CHEST WITH CONTRAST 11/30/2023 6:28 pm TECHNIQUE: CT of the chest was performed with the administration of intravenous contrast. Multiplanar reformatted images are provided for review. Automated exposure control, iterative reconstruction, and/or weight based adjustment of the mA/kV was utilized to reduce the radiation dose to as low as reasonably achievable. COMPARISON: None. HISTORY: ORDERING SYSTEM PROVIDED HISTORY: Reason for Exam: fall. pt is confused about nature of injury. unable to raise arms for exam. trauma FINDINGS: Mediastinum: Coronary artery calcifications. Nonaneurysmal thoracic aorta with atherosclerotic plaque. No pericardial effusion. Small to moderate amount of retrosternal blood products. Calcified mediastinal and right hilar lymph nodes. Dilated pulmonary arteries which can be seen in pulmonary arterial hypertension. Lungs/pleura: Dependent and bibasilar atelectatic changes and/or scarring. Calcified granuloma in the right upper lobe. Pulmonary vascular prominence. No pneumothorax. Is pleuroparenchymal scarring. Upper Abdomen: Colonic diverticula. Fusiform dilatation of the celiac trunk. Cortical thinning of the kidneys bilaterally. Soft Tissues/Bones: Mildly displaced and comminuted fracture of the superior sternum. Essentially nondisplaced fractures of the bilateral 3rd costochondral cartilages at the costosternal junction. Please see CT thoracic spine performed same day. Degenerative shoulders. IMPRESSION: Mildly displaced and comminuted fracture of the superior sternum. Essentially nondisplaced fractures of the bilateral 3rd costochondral cartilages at the costosternal junction. Small to moderate amount of retrosternal blood products. Interpreted by: Jim Dwyer Preliminary Report By: Jim Dwyer Electronically signed By Jim Dwyer Dictated Date: 11/30/2023 6:33:16 PM Prelim Date: 11/30/2023 6:40:54 PM Sign Date: 11/30/2023 6:40:54 PM Ordering Provider: SHAYY HUA Assessment/Plan 1. Odontoid fracture with type II morphology 2. Sternal fracture This patient is an 88-year-old gentleman with a past medical history of proximal atrial fibrillation on chronic anticoagulation Coumadin, CAD, hyperlipidemia, osteoporosis who sustained a mechanical fall resulting in polytraumatic injuries including a C2 fracture/ Odontoid fracture type III and sternal fracture. Due to these findings the patient was [facility] admitted to the trauma service team with consultations to neurosurgery. Vital signs, laboratory data and radiology reports have been reviewed. Plan: 1. S/p mechanical fall resulting in probably traumatic injuries -Supportive care given -Continue with multimodality pain control -Will initiate bowel regimen -Will continue to keep the patient n.p.o. until seen by neurosurgery to determine if the patient will need to undergo any surgical intervention for his C2 fracture -DVT prophylaxis JOSTIN Irizarry-will hold Coumadin at this time. 2. Odontoid fracture type III -Neurosurgery consulted appreciate their input -Once seen and evaluated by neurosurgery will order physical and occupational Therapy 3. Sternal fracture -Continue with multimodality pain control -Patient courage to use his IS 10 times hourly for cough and deep breathing 4. Paroxysmal atrial fibrillation -Will hold Coumadin at this time until seen and evaluated by neurosurgery -Will give the patient his oral antiarrhythmic Rythmol Case has been discussed with Dr. Gil. Please see his addendum to follow. Please see his addendum to follow. This document was dictated with voice recognition software and may contain grammatical errors Problem List/Past Medical History Ongoing Anticoagulation goal of INR 2 to 3 Bilateral hearing loss CAD in [place] artery Grief, lost 11/2022, brother 03/2023, brother 10/2023 Hypercoagulable state due to atrial fibrillation Mixed hyperlipidemia Non-rheumatic mitral regurgitation Osteoporosis PAF (paroxysmal atrial fibrillation) Post PTCA Prediabetes Subclinical hypothyroidism TSH elevation Wears hearing aid in both ears Historical Atrial fibrillation Procedure/Surgical History Cataract extraction: 04/09/12 Eye muscle surgery: 06/2005 Large bowel resection: 1998 History of vasectomy: 1974 Coronary angioplasty: 07/21/35 Medications Home Medications (18) Active Acidophilus oral tablet , Oral, qDay alendronate 70 mg oral tablet 70 mg = 1 tab(s), Oral, qWeek aspirin 81 mg oral tablet, chewable , Chewed, qDay B Complex 50 oral tablet , Oral, qDay Citracal 500 mg oral tablet , Oral, BID Glucosamine Chondroitin , Oral, qDay Multivitamin 1 tab(s), Oral, Daily PreserVision AREDS 2 , Chewed, BID Probiotic propafenone 225 mg oral tablet 1 tab(s), Oral, TID saw palmetto oral capsule simvastatin 10 mg oral tablet 5 mg = 0.5 tab(s), Oral, qHS turmeric 500 mg oral capsule Vitamin C 500 mg oral tablet , Oral, qDay Vitamin D3 25 mcg (1000 intl units) oral capsule , Oral, qDay vitamin E 200 intl units oral capsule 200 International_Unit = 1 cap(s), Oral, Daily warfarin 1 mg oral tablet See Instructions warfarin 5 mg oral tablet See Instructions Allergies penicillin Rash Social History Alcohol Use: Never., 10/04/2018 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 Coronary arteriosclerosis: Brother and Brother. Diabetes mellitus: Brother. Heart disease: Brother. Health Status Family Member(s) Family Member(s) Relationship: Maternal Grandfather, Age: About 93 Years, Cause: old age Relationship: Maternal Grandmother, Age: About 73 Years, Cause: unknown Relationship: Paternal Grandfather, Age: About 94 Years, Cause: old age Relationship: Paternal Grandmother, Age: About 72 Years, Cause: unknown Relationship: Mother, Name: Fariha Mendieta, Age: 93 Years, Cause: Diabetes, old age Relationship: Father, Name: Garry Mendieta, Age: 89 Years, Cause: CHF after an accident. Immunizations SARS-CoV-2 (COVID-19) mRNA-1273 vaccine: 50 mcg (04/07/21) SARS-CoV-2 (COVID-19) mRNA-1273 vaccine: 100 mcg (05/25/20) SARS-CoV-2 (COVID-19) mRNA-1273 vaccine: 100 mcg (04/27/20) tetanus/diphth/pertuss (Tdap) adult/adol: 0.5 unknown unit (09/25/23) tetanus/diphth/pertuss (Tdap) adult/adol: 0 unknown unit (05/30/12) zoster vaccine live: 0 unknown unit (03/18/14) Code Status Code Status - Ordered -- 11/30/23 23:18:00 EDT, Full Code, Constant Order Digitally Signed by JDE BAUER on 12/01/2023 08:05 AM [id number] History and physical note Date of Service 12/01/2023 Chief Complaint Pt transferred here from [facility] following a fall History of Present Illness This is a shared split visit between myself and Dr. Gil. This patient is an 88-year-old gentleman with a PMH of who Mitral regurgitation, paroxysmal atrial fibrillation on chronic anticoagulation (Coumadin) CAD, hyperlipidemia, osteoporosis was a transfer from [facility] who was a mechanical fall found to have a Odontoid fracture type III and sternal fracture, Due to these findings the patient was transferred to [facility] for definitive care. Whilein the emergency room patient underwent a CT angio of neck showing no vascular injury associated with the C2 fracture. Basic lab work completed showing at PT/INR of 2.5/29.5, sodium 134 glucose 143. Examination of the patient his family is at the bedside. The patient is hard hearing. Patient complaining of neck pain and spasms. He does report that he is experiencing tingling all over. Denies anynumbness. Patient reporting sternal pain with mild shortness of breath denies any abdominal pain atthis time. Patient able to move all extremities without difficulty. Review of Systems pertinent positives described above and otherwise negative. Physical Exam Vitals and Measurements T: 37 C (Oral) TMIN: 37 C (Oral) TMAX: 37.1 C (Oral) HR: 82 RR: 17 BP: 98/55 SpO2: 95% HT: 177.8 cmWT: 92.7 kg BMI: 29.32 Weight Dosing Weight: 92.7 kg (12/01/23) General: Awake and alert. Does not appear in distress. Able to answer questions. GCS 15, VIEJAS HEENT: Head appears normocephalic and atraumatic. No cephalohematoma. No bony step off. No raccoon sign. No mace sign. No otorrhea or rhinorrhea. Able to open and close mouth/jaw without pain/difficulty. Mucous membranes moist and pink. Sclerae anicteric. PERRLA Heart: Regular rate and rhythm. S1S2 present and without murmur, rub or gallop. Neck: No pain with palpation to midline. C-collar in place Back: No pain with palpation to the midline. No visible cutaneous trauma. Lungs: Chest rise symmetrical. Respirations unlabored. Trachea midline. Clear to auscultation bilaterally. 2LNC Chest: Tenderness to the chest wall. No crepitus with palpation. Abdomen: Soft and nontender. Nondistended. No guarding or rigidity. Bowel sounds 4 quadrants. Extremities: Moving all 4 without difficulty. No evidence of cyanosis clubbing or edema. Skin: No pallor or diaphoresis. No abrasions. No lacerations. Psychiatric: Calm and cooperative. Lab Results No 36 Hour Lab Data Imaging Results and Diagnostics CT Angiography Neck w/ Contrast Result Date: November 30, 2023 Verified By: GARTH MORLEY MD CLINICAL STATEMENT: IMPRESSION: No vascular injury associated with the C2 fracture. ADDENDUM: Odontoid fracture type is more consistent with type 3. Interpreted by: Garth Morley Preliminary Report By: Garth Morley Electronically signed By Garth Morley Dictated Date: 11/30/2023 6:44:23 PM Prelim Date: 11/30/2023 6:45:18 PM Sign Date: 11/30/2023 6:45:18 PM Ordering Provider: SHAYY LOFTON EXAMINATION: CT OF THE CERVICAL SPINE WITHOUT CONTRAST 11/30/2023 6:16 pm TECHNIQUE: CT of the cervical spine was performed without the administration of intravenous contrast. Multiplanar reformatted images are provided for review. Automated exposure control, iterative reconstruction, and/or weight based adjustment of the mA/kV was utilized to reduce the radiation dose to as low as reasonably achievable. COMPARISON: None. HISTORY: ORDERING SYSTEM PROVIDED HISTORY: Reason for Exam: trauma FINDINGS: BONES/ALIGNMENT: There is an acute type 2 moderately displaced fracture through the base of the odontoid with 8 mm anterior and 7 mm inferior displacement. The fracture extends into the bilateral C2 lateral masses and involves foramen transversarium, left greater than right.. The atlanto-odontoid and atlantooccipital joints appear congruent. DEGENERATIVE CHANGES: Existing degenerative changes are probably most pronounced status C4-C5 where there may be mild left neural foramen stenosis. SOFT TISSUES: There is biapical pleuroparenchymal scarring. Calcified atherosclerotic plaque is noted at the carotid bulbs bilaterally. IMPRESSION: Acute displaced type 2 odontoid fracture with extension into the bilateral C2 lateral masses and involvement of the foramen transversarium, left greater than right. CTA of the neck is recommended to evaluate for vascular injury. RECOMMENDATIONS: CTA neck. Finding of odontoid fracture was discussed with Dr. Quinonez 6:25 p.m. on 11/30/2023. CT OF THE CHEST WITH CONTRAST 11/30/2023 6:28 pm TECHNIQUE: CT of the chest was performed with the administration of intravenous contrast. Multiplanar reformatted images are provided for review. Automated exposure control, iterative reconstruction, and/or weight based adjustment of the mA/kV was utilized to reduce the radiation dose to as low as reasonably achievable. COMPARISON: None. HISTORY: ORDERING SYSTEM PROVIDED HISTORY: Reason for Exam: fall. pt is confused about nature of injury. unable to raise arms for exam. trauma FINDINGS: Mediastinum: Coronary artery calcifications. Nonaneurysmal thoracic aorta with atherosclerotic plaque. No pericardial effusion. Small to moderate amount of retrosternal blood products. Calcified mediastinal and right hilar lymph nodes. Dilated pulmonary arteries which can be seen in pulmonary arterial hypertension. Lungs/pleura: Dependent and bibasilar atelectatic changes and/or scarring. Calcified granuloma in the right upper lobe. Pulmonary vascular prominence. No pneumothorax. Is pleuroparenchymal scarring. Upper Abdomen: Colonic diverticula. Fusiform dilatation of the celiac trunk. Cortical thinning of the kidneys bilaterally. Soft Tissues/Bones: Mildly displaced and comminuted fracture of the superior sternum. Essentially nondisplaced fractures of the bilateral 3rd costochondral cartilages at the costosternal junction. Please see CT thoracic spine performed same day. Degenerative shoulders. IMPRESSION: Mildly displaced and comminuted fracture of the superior sternum. Essentially nondisplaced fractures of the bilateral 3rd costochondral cartilages at the costosternal junction. Small to moderate amount of retrosternal blood products. Interpreted by: Jim Dwyer Preliminary Report By: Jim Dwyer Electronically signed By Jim Dwyer Dictated Date: 11/30/2023 6:33:16 PM Prelim Date: 11/30/2023 6:40:54 PM Sign Date: 11/30/2023 6:40:54 PM Ordering Provider: SHAYY HUA CT OF THE CHEST WITH CONTRAST 11/30/2023 6:28 pm TECHNIQUE: CT of the chest was performed with the administration of intravenous contrast. Multiplanar reformatted images are provided for review. Automated exposure control, iterative reconstruction, and/or weight based adjustment of the mA/kV was utilized to reduce the radiation dose to as low as reasonably achievable. COMPARISON: None. HISTORY: ORDERING SYSTEM PROVIDED HISTORY: Reason for Exam: fall. pt is confused about nature of injury. unable to raise arms for exam. trauma FINDINGS: Mediastinum: Coronary artery calcifications. Nonaneurysmal thoracic aorta with atherosclerotic plaque. No pericardial effusion. Small to moderate amount of retrosternal blood products. Calcified mediastinal and right hilar lymph nodes. Dilated pulmonary arteries which can be seen in pulmonary arterial hypertension. Lungs/pleura: Dependent and bibasilar atelectatic changes and/or scarring. Calcified granuloma in the right upper lobe. Pulmonary vascular prominence. No pneumothorax. Is pleuroparenchymal scarring. Upper Abdomen: Colonic diverticula. Fusiform dilatation of the celiac trunk. Cortical thinning of the kidneys bilaterally. Soft Tissues/Bones: Mildly displaced and comminuted fracture of the superior sternum. Essentially nondisplaced fractures of the bilateral 3rd costochondral cartilages at the costosternal junction. Please see CT thoracic spine performed same day. Degenerative shoulders. IMPRESSION: Mildly displaced and comminuted fracture of the superior sternum. Essentially nondisplaced fractures of the bilateral 3rd costochondral cartilages at the costosternal junction. Small to moderate amount of retrosternal blood products. Interpreted by: Jim Dwyer Preliminary Report By: Jim Dwyer Electronically signed By Jim Dwyer Dictated Date: 11/30/2023 6:33:16 PM Prelim Date: 11/30/2023 6:40:54 PM Sign Date: 11/30/2023 6:40:54 PM Ordering Provider: SHAYY HUA Assessment/Plan 1. Odontoid fracture with type II morphology 2. Sternal fracture This patient is an 88-year-old gentleman with a past medical history of proximal atrial fibrillation on chronic anticoagulation Coumadin, CAD, hyperlipidemia, osteoporosis who sustained a mechanical fall resulting in polytraumatic injuries including a C2 fracture/ Odontoid fracture type III and sternal fracture. Due to these findings the patient was [facility]and admitted to the trauma service team with consultations to neurosurgery. Vital signs, laboratory data and radiology reports have been reviewed. Plan: 1. S/p mechanical fall resulting in probably traumatic injuries -Supportive care given -Continue with multimodality pain control -Will initiate bowel regimen -Will continue to keep the patient n.p.o. until seen by neurosurgery to determine if the patient will need to undergo any surgical intervention for his C2 fracture -DVT prophylaxis JOSTIN Irizarry-will hold Coumadin at this time. 2. Odontoid fracture type III -Neurosurgery consulted appreciate their input -Once seen and evaluated by neurosurgery will order physical and occupational Therapy 3. Sternal fracture -Continue with multimodality pain control -Patient courage to use his IS 10 times hourly for cough and deep breathing 4. Paroxysmal atrial fibrillation -Will hold Coumadin at this time until seen and evaluated by neurosurgery -Will give the patient his oral antiarrhythmic Rythmol Case has been discussed with Dr. Gil. Please see his addendum to follow. Please see his addendum to follow. This document was dictated with voice recognition software and may contain grammatical errors Problem List/Past Medical History Ongoing Anticoagulation goal of INR 2 to 3 Bilateral hearing loss CAD in [place] artery Grief, lost 11/2022, brother 03/2023, brother 10/2023 Hypercoagulable state due to atrial fibrillation Mixed hyperlipidemia Non-rheumatic mitral regurgitation Osteoporosis PAF (paroxysmal atrial fibrillation) Post PTCA Prediabetes Subclinical hypothyroidism TSH elevation Wears hearing aid in both ears Historical Atrial fibrillation Procedure/Surgical History Cataract extraction: 04/09/12 Eye muscle surgery: 06/2005 Large bowel resection: 1998 History of vasectomy: 1974 Coronary angioplasty: 07/21/35 Medications Home Medications (18) Active Acidophilus oral tablet , Oral, qDay alendronate 70 mg oral tablet 70 mg = 1 tab(s), Oral, qWeek aspirin 81 mg oral tablet, chewable , Chewed, qDay B Complex 50 oral tablet , Oral, qDay Citracal 500 mg oral tablet , Oral, BID Glucosamine Chondroitin , Oral, qDay Multivitamin 1 tab(s), Oral, Daily PreserVision AREDS 2 , Chewed, BID Probiotic propafenone 225 mg oral tablet 1 tab(s), Oral, TID saw palmetto oral capsule simvastatin 10 mg oral tablet 5 mg = 0.5 tab(s), Oral, qHS turmeric 500 mg oral capsule Vitamin C 500 mg oral tablet , Oral, qDay Vitamin D3 25 mcg (1000 intl units) oral capsule , Oral, qDay vitamin E 200 intl units oral capsule 200 International_Unit = 1 cap(s), Oral, Daily warfarin 1 mg oral tablet See Instructions warfarin 5 mg oral tablet See Instructions Allergies penicillin Rash Social History Alcohol Use: Never., 10/04/2018 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 Coronary arteriosclerosis: Brother and Brother. Diabetes mellitus: Brother. Heart disease: Brother. Health Status Family Member(s) Family Member(s) Relationship: Maternal Grandfather, Age: About 93 Years, Cause: old age Relationship: Maternal Grandmother, Age: About 73 Years, Cause: unknown Relationship: Paternal Grandfather, Age: About 94 Years, Cause: old age Relationship: Paternal Grandmother, Age: About 72 Years, Cause: unknown Relationship: Mother, Name: Fariha Mendieta, Age: 93 Years, Cause: Diabetes, old age Relationship: Father, Name: Garry Mendieta, Age: 89 Years, Cause: CHF after an accident. Immunizations SARS-CoV-2 (COVID-19) mRNA-1273 vaccine: 50 mcg (04/07/21) SARS-CoV-2 (COVID-19) mRNA-1273 vaccine: 100 mcg (05/25/20) SARS-CoV-2 (COVID-19) mRNA-1273 vaccine: 100 mcg (04/27/20) tetanus/diphth/pertuss (Tdap) adult/adol: 0.5 unknown unit (09/25/23) tetanus/diphth/pertuss (Tdap) adult/adol: 0 unknown unit (05/30/12) zoster vaccine live: 0 unknown unit (03/18/14) Code Status Code Status - Ordered -- 11/30/23 23:18:00 EDT, Full Code, Constant Order Digitally Signed by JED BAUER on 12/01/2023 08:05 AM [id number] Note ORIGINAL EXAMINATION: CTA OF THE NECK 11/30/2023 10:14 pm TECHNIQUE: CTA of the neck was performed with the administration of intravenous contrast. Multiplanar reformatted images are provided for review. MIP images are provided for review. Stenosis of the internal carotid arteries measured using NASCET criteria. Automated exposure control, iterative reconstruction, and/or weight based adjustment of the mA/kV was utilized to reduce the radiation dose to as low as reasonably achievable. COMPARISON: CT cervical spine of the same date. HISTORY: ORDERING SYSTEM PROVIDED HISTORY: Reason for Exam: FELL DOWN 3FT RETAINING WALL TODAY, POS LOC, HIT HEAD, PREV IMAGING AT [facility] r/o dissection FINDINGS: AORTIC ARCH/ARCH VESSELS: No dissection or arterial injury. No significant stenosis of the brachiocephalic or subclavian arteries. CAROTID ARTERIES: Calcified atherosclerotic plaque is noted at the carotid bulbs bilaterally. No dissection, arterial injury, or hemodynamically significant stenosis by NASCET criteria. VERTEBRAL ARTERIES: No dissection, arterial injury, or significant stenosis. SOFT TISSUES: The lung apices are clear. No cervical or superior mediastinal lymphadenopathy. The larynx and pharynx are unremarkable. No acute abnormality of the salivary and thyroid glands. BONES: Redemonstrated displaced odontoid fracture extending into the lateral masses of C2 and involving the transverse foramina. IMPRESSION: No vascular injury associated with the C2 fracture. Interpreted by: Garth Morley Preliminary Report By: Garth Morley Electronically signed By Garth Morley Dictated Date: 11/30/2023 10:17:01 PM Prelim Date: 11/30/2023 10:23:06 PM Sign Date: 11/30/2023 10:23:06 PM Ordering Provider: [facility]09-26-2024 Note ORIGINAL EXAMINATION: CT OF THE CHEST WITH CONTRAST 11/30/2023 6:28 pm TECHNIQUE: CT of the chest was performed with the administration of intravenous contrast. Multiplanar reformatted images are provided for review. Automated exposure control, iterative reconstruction, and/or weight based adjustment of the mA/kV was utilized to reduce the radiation dose to as low as reasonably achievable. COMPARISON: None. HISTORY: ORDERING SYSTEM PROVIDED HISTORY: Reason for Exam: fall. pt is confused about nature of injury. unable to raise arms for exam. trauma FINDINGS: Mediastinum: Coronary artery calcifications. Nonaneurysmal thoracic aorta with atherosclerotic plaque. No pericardial effusion. Small to moderate amount of retrosternal blood products. Calcified mediastinal and right hilar lymph nodes. Dilated pulmonary arteries which can be seen in pulmonary arterial hypertension. Lungs/pleura: Dependent and bibasilar atelectatic changes and/or scarring. Calcified granuloma in the right upper lobe. Pulmonary vascular prominence. No pneumothorax. Is pleuroparenchymal scarring. Upper Abdomen: Colonic diverticula. Fusiform dilatation of the celiac trunk. Cortical thinning of the kidneys bilaterally. Soft Tissues/Bones: Mildly displaced and comminuted fracture of the superior sternum. Essentially nondisplaced fractures of the bilateral 3rd costochondral cartilages at the costosternal junction. Please see CT thoracic spine performed same day. Degenerative shoulders. IMPRESSION: Mildly displaced and comminuted fracture of the superior sternum. Essentially nondisplaced fractures of the bilateral 3rd costochondral cartilages at the costosternal junction. Small to moderate amount of retrosternal blood products. Interpreted by: Jim Dwyer Preliminary Report By: Jim Dwyer Electronically signed By Jim Dwyer Dictated Date: 11/30/2023 6:33:16 PM Prelim Date: 11/30/2023 6:40:54 PM Sign Date: 11/30/2023 6:40:54 PM Ordering Provider: [address]26-2024 Note ORIGINAL EXAMINATION: CT OF THE THORACIC SPINE WITHOUT CONTRAST11/30/2023 6:[address] WITHOUT IV CONTRAST TECHNIQUE: CT of the thoracic spine was performed without the administration of intravenous contrast. Multiplanar reformatted images are provided for review. Automated exposure control, iterative reconstruction, and/or weight based adjustment of the mA/kV was utilized to reduce the radiation dose to as low as reasonably achievable. COMPARISON: None. HISTORY: ORDERING SYSTEM PROVIDED HISTORY: Reason for Exam: fall. pt is confused about nature of injury. unable to raise arms for exam. trauma FINDINGS: No acute fracture or traumatic malalignment. Vertebral body heights are maintained. Multilevel degenerative changes of the spine. No high-grade spinal canal stenosis or neural foraminal narrowing. IMPRESSION: No acute fracture of the thoracic spine. I have personally reviewed the images of this examination and agree with the resident's findings and interpretation. Interpreted by: Jim Dwyer Preliminary Report By: Edy Lopez Electronically signed By Jim Dwyer Dictated Date: 11/30/2023 6:32:08 PM Prelim Date: 11/30/2023 7:31:15 PM Sign Date: 11/30/2023 7:31:15 PM Ordering Provider: [address]26-2024 Note ORIGINAL EXAMINATION: CT OF THE HEAD WITHOUT CONTRAST 11/30/2023 6:16 pm TECHNIQUE: CT of the head was performed without the administration of intravenous contrast. Automated exposure control, iterative reconstruction, and/or weight based adjustment of the mA/kV was utilized to reduce the radiation dose to as low as reasonably achievable. COMPARISON: None. HISTORY: ORDERING SYSTEM PROVIDED HISTORY: Reason for Exam: trauma FINDINGS: BRAIN/VENTRICLES: There is no acute intracranial hemorrhage, mass effect or midline shift. No abnormal extra-axial fluid collection. Small area of cortical based calcification in the right lateral temporal lobe posteriorly which can be correlated with prior exams for stability. Chronic appearing small hypodensities and vascular calcifications in the bilateral basal ganglia. The otto-white differentiation is maintained without evidence of an acute infarct. There is no evidence of hydrocephalus. There are nonspecific hypoattenuating foci in the subcortical and periventricular white matter that most likely represent chronic microangiopathic ischemic changes in a patient of this age. Parenchymal volume loss. ORBITS: The visualized portion of the orbits demonstrate no acute abnormality. SINUSES: The visualized paranasal sinuses and mastoid air cells demonstrate no acute abnormality. SOFT TISSUES/SKULL: No acute abnormality of the visualized skull. IMPRESSION: No acute intracranial abnormality. Small area of cortical based calcification in the right lateral temporal lobe posteriorly which can be correlated with prior exams for stability. Interpreted by: Jim Dwyer Preliminary Report By: Jim Dwyer Electronically signed By Jim Dwyer Dictated Date: 11/30/2023 6:16:57 PM Prelim Date: 11/30/2023 6:22:53 PM Sign Date: 11/30/2023 6:22:53 PM [facility] Note ADDENDUM ADDENDUM: Odontoid fracture type is more consistent with type 3. Interpreted by: Garth Morley Preliminary Report By: Garth Morley Electronically signed By Garth Morley Dictated Date: 11/30/2023 6:44:23 PM Prelim Date: 11/30/2023 6:45:18 PM Sign Date: 11/30/2023 6:45:18 PM Ordering Provider: SHAYY HUA ORIGINAL EXAMINATION: CT OF THE CERVICAL SPINE WITHOUT CONTRAST 11/30/2023 6:16 pm TECHNIQUE: CT of the cervical spine was performed without the administration of intravenous contrast. Multiplanar reformatted images are provided for review. Automated exposure control, iterative reconstruction, and/or weight based adjustment of the mA/kV was utilized to reduce the radiation dose to as low as reasonably achievable. COMPARISON: None. HISTORY: ORDERING SYSTEM PROVIDED HISTORY: Reason for Exam: trauma FINDINGS: BONES/ALIGNMENT: There is an acute type 2 moderately displaced fracture through the base of the odontoid with 8 mm anterior and 7 mm inferior displacement. The fracture extends into the bilateral C2 lateral masses and involves foramen transversarium, left greater than right.. The atlanto-odontoid and atlantooccipital joints appear congruent. DEGENERATIVE CHANGES: Existing degenerative changes are probably most pronounced status C4-C5 where there may be mild left neural foramen stenosis. SOFT TISSUES: There is biapical pleuroparenchymal scarring. Calcified atherosclerotic plaque is noted at the carotid bulbs bilaterally. IMPRESSION: Acute displaced type 2 odontoid fracture with extension into the bilateral C2 lateral masses and involvement of the foramen transversarium, left greater than right. CTA of the neck is recommended to evaluate for vascular injury. RECOMMENDATIONS: CTA neck. Finding of odontoid fracture was discussed with Dr. Quinonez 6:25 p.m. on 11/30/2023. Interpreted by: Garth Morley Preliminary Report By: Garth Morley Electronically signed By Garth Morley Dictated Date: 11/30/2023 6:17:27 PM Prelim Date: 11/30/2023 6:29:34 PM Sign Date: 11/30/2023 6:29:34 PM Ordering Provider: SHAYY [facility]09-26-2024 Note Sinus rhythm Prolonged CA interval Probable left atrial enlargement Minimal ST depression, lateral leads Electronic Signature: SHAYY HUA MD 11/30/2023 18:08:19[facility] 04-25-2023 Note ORIGINAL EXAMINATION: BONE DENSITOMETRY 06/28/2022 2:14 pm TECHNIQUE: A bone density dual x-ray absorptiometry (DEXA) scan was performed of the lumbar spine and left hip. COMPARISON: None. HISTORY: ORDERING SYSTEM PROVIDED HISTORY: Reason for Exam: Osteoporosis Screening FINDINGS: BMD (g/cm2) Lumbar Spine L1-L4: 0.977. T Score Lumbar Spine L1-L4: -1.0 BMD (g/cm2) Left Femoral Neck: 0.569. T Score Left Femoral Neck: -2.7 BMD (g/cm2) Left Hip: 0.797. T Score Left Hip: -1.6 IMPRESSION: Osteoporotic by WHO criteria. *By the World Health Organization criteria: (Comparing with young normal sex matched population) - Normal: T-score at or above -1 SD (standard deviation) - Osteopenia: T-score between -1 and -2.5 SD - Osteoporosis: T-score at or below -2.5 SD I have personally reviewed the images of this examination and agree with the resident's findings and interpretations. Interpreted by: Dorinda Gamez DO Preliminary Report By: Kanchan Mariscal Electronically signed By Dorinda Gamez DO Dictated Date: 06/28/2022 2:17:30 PM Prelim Date: 06/28/2022 2:36:04 PM Sign Date: 06/28/2022 2:36:04 PM Ordering Provider: [facility]04-25-2023 Note ORIGINAL EXAMINATION: BONE DENSITOMETRY 06/28/2022 2:14 pm TECHNIQUE: A bone density dual x-ray absorptiometry (DEXA) scan was performed of the lumbar spine and left hip. COMPARISON: None. HISTORY: ORDERING SYSTEM PROVIDED HISTORY: Reason for Exam: Osteoporosis Screening FINDINGS: BMD (g/cm2) Lumbar Spine L1-L4: 0.977. T Score Lumbar Spine L1-L4: -1.0 BMD (g/cm2) Left Femoral Neck: 0.569. T Score Left Femoral Neck: -2.7 BMD (g/cm2) Left Hip: 0.797. T Score Left Hip: -1.6 IMPRESSION: Osteoporotic by WHO criteria. *By the World Health Organization criteria: (Comparing with young normal sex matched population) - Normal: T-score at or above -1 SD (standard deviation) - Osteopenia: T-score between -1 and -2.5 SD - Osteoporosis: T-score at or below -2.5 SD I have personally reviewed the images of this examination and agree with the resident's findings and interpretations. Interpreted by: Dorinda Gamez DO Preliminary Report By: Kanchan Mariscal Electronically signed By Dorinda Gamez DO Dictated Date: 06/28/2022 2:17:30 PM Prelim Date: 06/28/2022 2:36:04 PM Sign Date: 06/28/2022 2:36:04 PM [facility] Appointment Date:04/07/2021 07:50:00 AM Scheduled Provider:JAZIEL BROWN MD Location:[facility] Appointment Type:PC OV Appointment Date:09/20/2021 09:30:00 AM Scheduled Provider:LATRELL MAGAÑA APRN-ASSISTANT PROFESSOR OF MARINE BIOLOGY Location:[facility] Appointment Type:CV OV [facility] Evaluation + Plan note Future Appointments Appointment Date:06/21/2022 11:00:00 AM Scheduled Provider:BRII GRAHAM DO Location:[facility] Appointment Type:PC OV Follow Up [facility] Evaluation + Plan note Future Appointments Appointment Date:10/25/2022 11:00:00 AM Scheduled Provider:BRII GRAHAM DO Location:[facility] Appointment Type:PC OV Future Scheduled Tests Laboratory* Thyroid Stimulating Hormone 06/21/22 * Free T4 06/21/22 * A1C Hemoglobin 06/21/22 * Lipid Profile 06/21/22 * Prothrombin Time - Panel 06/21/22 * Vitamin D Level 06/21/22 [facility] Evaluation + Plan note Future Appointments Appointment Date:06/13/2023 10:30:00 AM Scheduled Provider:BRII GRAHAM DO Location:[facility] Appointment Type:PC OV [facility] Evaluation + Plan note Future Appointments Appointment Date:11/07/2023 09:30:00 AM Scheduled Provider:BRII GRAHAM DO Location:[facility] Appointment Type:PC OV Future Scheduled Tests Laboratory* Basic Metabolic Panel 06/28/23 [facility] Evaluation + Plan note Future Appointments Appointment Date:12/15/2023 11:45:00 AM Scheduled Provider:BRII GRAHAM DO Location:[facility] Appointment Type:PC OV Appointment Date:11/26/2024 09:30:00 AM Scheduled Provider:LATRELL MAGAÑA Location:[facility] Appointment Type:CV OV Future Scheduled Tests Laboratory* Basic Metabolic Panel 06/28/23 [facility] Hospital course Narrative No data available for this section [facility] Hospital Discharge instructions No data available for this section [facility] Progress note No data available for this section [facility] Summary Purpose Family History No Family History Records Found Advance Directives No Advanced Directives Records FoundNo Advanced Directives Records FoundNo Advanced Directives Records Found Additional Source Comments Care Team (unrecognized sect ion and content) Care Team Personnel Name: IRON MARKS Member Role: Rice Drier Address: Address: [facility] [employer] [address] Name: BRII GRAHAM DO Position: P4 Physician - Primary Care Member Role: Primary Care Physician Address: Address: [address] [place] [address] Care Team Related Persons Name: EMELI MENDIETA Patient Care team informatio n (unrecognized section and content) Care Team Personnel Name: LATRELL MAGAÑA Position: P4 Advanced Front Desk Attendant Member Role: Boats Renter Address: Address: [address] [place] [address] Name: IRON MARKS Member Role: Rice Drier Address: Address: [address] [place] [address] [employer] [address] Name: BRII GRAHAM DO Position: P4 Physician - Primary Care Member Role: Primary Care Physician Address: Address: [address] [place] [address] Care Team Related Persons Name: EMELI MENDIETA Care Team Personnel Name: LATRELL MAGAÑAASSISTANT PROFESSOR OF MARINE BIOLOGY Position: P4 Advanced Front Desk Attendant Member Role: Boats Renter Address: Address: [address] [place] [address] Name: IRON MARKS Member Role: Rice Drier Address: Address: [facility] [employer] [address] Name: BRII GRAHAM DO Position: P4 Physician - Primary Care Member Role: Primary Care Physician Address: Address: [address] [place] [address] [place] [address] [place] Care Team Related Persons Name: HANNAH GARCIA Address: Home [address] [place], [place] [id number] Address: Temporary [address] [place], [place] [id number] Name: OLEKSANDR MENDIETA Address: Home [address] [place] [address] Care Team Personnel Name: LATRELL MAGAÑA DIRECTOR MEDICAL WRITING-ASSISTANT PROFESSOR OF MARINE BIOLOGY Position: P4 Advanced Front Desk Attendant Member Role: Boats Renter Address: Address: [facility] [address] [place] [address] [address]- [place] Name: IRON MARKS Member Role: Rice Drier Address: Address: [address] [employer] [place] [id number]- [place] Name: BRII GRAHAM DO Position: P4 Physician - Primary Care Member Role: Primary Care Physician Address: Address: [address] [place] [address]- Care Team Related Persons Name: HANNAH GARCIA Address: Home [address] [place], [place] [id number] Address: Temporary [address] [place], [place] [id number] Name: OLEKSANDR MENDIETA Address: Home [address] [place], [place] [id number] Care Team Personnel Name: LATRELL MAGAÑA DIRECTOR MEDICAL WRITING-ASSISTANT PROFESSOR OF MARINE BIOLOGY Position: P4 Advanced Front Desk Attendant Member Role: Boats Renter Address: Address: [address] [place] [address] [place] [address]- [place] Name: IRON MARKS Member Role: Rice Drier Address: Address: [address] [employer] [place] [address]- [place] Name: BRII GRAHAM DO Position: P4 Physician - Primary Care Member Role: Primary Care Physician Address: Address: [address] [place] [address] [place] Care Team Related Persons Name: HANNAH GARCIA Address: Home [address], [place] [phone] Address: Temporary [address] [place], [place] [id number] Name: LIAM MENDIETANE Address: Home [address] [place], [place] [id number] Care Team Personnel Name: Yuri Bustillo Nurse Position: Bed Management Member Role: Other Name: LATRELL MAGAÑA APRN-ASSISTANT PROFESSOR OF MARINE BIOLOGY Position: P4 Advanced Front Desk Attendant Member Role: Boats Renter Address: Address: [address] [place] [address] [address] [facility] [place], [place] [address] Name: IRON MARKS Member Role: Rice Drier Address: Address: [facility] [employer], [place], [place] [address] Name: BRII GRAHAM DO Position: P4 Physician - Primary Care Member Role: Primary Care Physician Address: Address: [address] [facility] [place], [place] [address] Care Team Related Persons Name: HANNAH GARCIA Address: Home [address] [place], [place] [id number] Address: Temporary [address], [place] [id number] Name: JERRI MENDIETAERNE Address: Home [facility] [place], [place] [id number] (unrecognized sect ion and content) No Status Records FoundNo Status Records FoundNo Status Records Found INFORMATION SOURCE (unrecogn ized section and content) DATE CREATED AUTHOR 11/05/2023 [facility] ([place]) DATE CREATED AUTHOR AUTHOR'S ORGANIZ ATION 12/07/2023 [facility] DATE CREATED AUTHOR AUTHOR'S ORGANIZ ATION 12/22/2023 [facility] FOR RECORDS PERTAINING TO PATIENTS WHO ARE OR HAVE BEEN ENROLLED IN A CHEMICAL DEPENDENCY/SUBSTANCEABUSE PROGRAM, SOME INFORMATION MAY BE OMITTED. This clinical summary was aggregated from multiple sources. Caution should be exercised in using it in the provision of clinical care. This summary normalizes information from multiple sources, and as a consequence, information in this document may materially change the coding, format and clinical context of patient data. In addition, data may be omitted in some cases. CLINICAL DECISIONS SHOULD BE BASED ON THE PRIMARY CLINICAL RECORDS. [facility] [facility] provides no warranty or guarantee of the accuracy or completeness of information in this document.
== END | disposition home or self-care (01) ==
PROVIDERS: Referring Provider Family Medicine Geriatric Medicine; Visit Provider Family Medicine Geriatric Medicine
DX: S12.100A Unspecified displaced fracture of second cervical vertebra, initial encounter for closed fracture (principal); X58.XXXA Exposure to other specified factors, initial encounter
CPT/HCPCS: 72125

== ENCOUNTER → 2024-01-10 | Outpatient (CLI) | payer MEDICARE, SELFPAY ==
--- NOTE | 2024-01-10 09:09 | CT_ITS ---
STUDY: CTA CHEST REASON FOR EXAM: Male, 88 years old. PE/HEMOPTYSIS RADIATION DOSAGE (If Supplied By Facility): CTDIvol = ( 13.86 ) mGy, DLP = ( 429.24 ) mGycm TECHNIQUE: The examination was performed with the intravenous administration of IV 100mL Isovue-370. Post-processing of the angiographic images was performed, with multiplanar reformation and 3D reconstruction. Individualized dose optimization techniques were used for this CT. COMPARISON: Comparison is made with prior chest radiograph dated January 01, 2024. FINDINGS: There is evidence of an intraluminal filling defect in a branch of the right upper lobe pulmonary artery in keeping with pulmonary embolism. There is atherosclerotic calcification of the aortic arch with tortuosity. There is no demonstrated aortic dissection. There are calcifications of the coronary arteries. Normal mediastinum. Normal hilar regions. Normal visualized trachea and bronchi. The lungs are well expanded. There is evidence of interstitial scarring and bronchiectasis in the lower lobes. Focal linear scarring is seen in the superior aspect of the right lower lobe. Normal pleura. Normal chest wall structures. There are degenerative changes of thoracic spine. Small layering gallstones along the dependent portion of the gallbladder lumen. CT/CTA Chest W/WO Contrast IMPRESSION: Pulmonary emboli in the branches of the right upper lobe pulmonary artery. Scarring at the lung bases and the bronchiectasis. Electronically Signed: Ayden Garza MD at 10:37 EST ,
== END | disposition home or self-care (01) ==
PROVIDERS: Referring Provider Family Medicine Geriatric Medicine; Visit Provider Family Medicine Geriatric Medicine
DX: R04.2 Hemoptysis (principal)
CPT/HCPCS: 71275; Q9967

== ENCOUNTER → 2024-01-11 | Outpatient (CLI) | payer MEDICARE, SELFPAY ==
--- NOTE | 2024-01-11 08:53 | VDLE_ITS ---
Reason For Study: Pulmonary embolism RIGHT LEFT GSV is normal. GSV is normal. CFV is compressible, spontaneous, phasic, CFV is compressible, spontaneous, phasic, competent and demonstrates normal competent, and demonstrates normal augmentation. augmentation. FV is compressible, spontaneous, phasic, FV is compressible, spontaneous, phasic, competent and demonstrates normal competent and demonstrates normal augmentation. augmentation. POP V is compressible, spontaneous, phasic, POP V is compressible, spontaneous, phasic, competent and demonstrates normal competent and demonstrates normal augmentation. augmentation. T/P Trunk is compressible. T/P Trunk is compressible. PTV is compressible. PTV is compressible. RT PerV is compressible. LT PerV is compressible. Procedure Acute deep vein thrombosis is noted in the This is a venous duplex using B-mode, color Soleus V. It is dilated and NONCOMPRESSIBLE. flow and spectral Doppler. Exam performed portable in patient room. A preliminary report was called and/or faxed to Imelda OCHOA and Coretta PASTOR. VL/Venous Duplex US - Hugo Extrem Interpretation Summary Acute deep vein thrombosis is noted in the left soleus vein. The remainder of t he left lower extremity deep venous system is patent and compressible. Deep veins of the righ t lower extremity are patent and compressible segmentally. There is no evidence of right lower extrem ity deep vein thrombosis. Valvular competence appears intact within the proximal deep venous systems bilaterally. The great saphenous veins appear bilaterally patent and compressible segmentall y. Ordering Physician: Nikolai Ceballos Chi Referring Physician: Rayo Lanza Performed By: Alyssia Lucas RVT
== END | disposition home or self-care (01) ==
PROVIDERS: Referring Provider Family Medicine Geriatric Medicine; Visit Provider Family Medicine Geriatric Medicine
DX: I26.99 Other pulmonary embolism without acute cor pulmonale (principal); I82.462 Acute embolism and thrombosis of left calf muscular vein
CPT/HCPCS: 93970

== ENCOUNTER 2024-01-15 10:36 | Day surgery (SDC) | payer MEDICARE, SELFPAY ==
--- NOTE | 2024-01-15 09:44 | OP.PCM_ITS ---
Operative Report (Standard) Operative Information Surgery/Procedure Performed: Insertion inferior vena cava filter Surgeon: Wei Roldan Date of Procedure: 01/15/24 Procedure Start Time: 09:00 Procedure Stop Time: :30 Pre-Operative Diagnosis: DVT Post-Operative Diagnosis: Same Select all DRAINS/GRAFTS/IMPLANTS that apply: Implanted device Implanted device details: Cook Celect Filter Type of Anesthesia: Local and Sedation,Conscious Estimated Blood Loss: 1 Specimen collected: No Description of surgery: HPI: Patient is an 88-year-old male admitted to the transitional care unit after significant fall with multiple injuries. He was found to have deep venous thrombosis and pulmonary embolism but also has a history of atrial fibrillation for which she was on anticoagulation long-term. Subsequently has also had hematuria he is felt to be not a candidate for ongoing anticoagulation at this time. He is taken now for inferior vena cava filter. Description procedure: Upon obtaining form consent and verification correct patient procedure site patient taken the Early Childhood Services Coordinator where he was positioned prepped and draped in usual sterile fashion. Timeouts performed conscious sedation ministered Versed and fentanyl. The patient has a history of a prior iatrogenic right femoral AV fistula so initial plan was to avoid right femoral access. Skin overlying the left common femoral vein was anesthetized 1% lidocaine the vessel accessed with a micropuncture needle wire under ultrasound guidance. This then exchanged for micropuncture sheath which injection ilio caval venogram was performed revealing satisfactory positioning no extravasation or dissection. However this also revealed significant angulation of the confluence with regards to the left common iliac vein. The concern was that there would be significant risk for tilt if the filter was placed via left femoral access so skin overlying the right common femoral vein was anesthetized and the vessel accessed with micropuncture needle wire. This then exchanged for micropuncture sheath through which hand-injection ilio caval venogram was performed in satisfactory position with no extravasation or dissection and a relatively straight trajectory into the confluence. Through the micropuncture sheath a Theranos wire is advanced and the micropuncture sheath exchanged for the Cook filter delivery system which was advanced into position at the L2 vertebral body. This was then utilized to perform a subtraction venacavogram which revealed patent normal caliber vena cava as well as the confluence of the renal veins. A Cook select vena cava filter was then advanced into position and deployed below the lowest renal vein. Completion venacavogram confirmed satisfactory positioning with no significant tilt. Wires and sheath were then withdrawn and manual pressure held for 10 minutes after which satisfactory stasis was noted. Patient was then taken the recovery room in anticipated return to the TCU. Surgical Findings: Filter below renal veins, no tilt Commercial Field Inspector upper shaper: No Complications Complications: No
[2024-01-15 10:31] VITALS: BMI 24.9
== END 2024-01-15 11:35 | disposition skilled nursing facility (03) ==
PROVIDERS: Referring Provider Surgery Trauma Surgery; Visit Provider Surgery Trauma Surgery
DX: I82.409 Acute embolism and thrombosis of unspecified deep veins of unspecified lower extremity (principal); I48.91 Unspecified atrial fibrillation; I26.99 Other pulmonary embolism without acute cor pulmonale; Z79.01 Long term (current) use of anticoagulants; R31.9 Hematuria, unspecified; I25.10 Atherosclerotic heart disease of native coronary artery without angina pectoris; E78.5 Hyperlipidemia, unspecified; I77.0 Arteriovenous fistula, acquired
CPT/HCPCS: 37191; 76937; 99152; 99153; C1769; C1880; C1894; J7040; Q9967

== ENCOUNTER → 2024-03-01 | Outpatient (REF) | payer SELFPAY ==
[2024-03-01 09:33] LABS: Anion Gap 5 (5-15); BUN 9 mg/dL (7-18); BUN/Creat Ratio 16.1 RATIO (10-20); Calcium,Total 9.1 mg/dL (8.5-10.1); Chloride 103 mmol/L (98-107); Creatinine, Serum 0.56 mg/dL (0.70-1.30); EST Glomerular Filtration Rate 146 mL/min (>60); Est Glom Filt Rate - Afr Amer 177 mL/min (>60); Glucose 119 mg/dL (74-106); Sodium Level 135 mmol/L (136-145)
== END ==
LOC: OLS.WCC 05:00
PROVIDERS: Visit Provider Family Medicine
DX: Z51.81 Encounter for therapeutic drug level monitoring (principal); Z79.899 Other long term (current) drug therapy

== ENCOUNTER 2024-03-18 08:03 | Inpatient (IN) | payer MEDICARE, SELFPAY ==
[2024-03-18] VITALS (11 sets, daily range): BP systolic 99–135; BP diastolic 74–93; PULSE 121–136; RESP 28–38; TEMP 36.4–37.1; O2SAT 91–95; BMI 23.8
--- NOTE | 2024-03-18 08:18 | EKG12_ITS ---
Test Reason : Blood Pressure : */* mmHG Vent. Rate : 135 BPM Atrial Rate : 135 BPM P-R Int : 162 ms QRS Dur : 86 ms QT Int : 276 ms P-R-T Axes : 10 -18 24 degrees QTcB Int : 414 ms Sinus tachycardia with Fusion complexes Otherwise normal ECG Confirmed by SANDRA CARIAS, TAMARA ([id number]), purchasing expeditor JASPER EISENBERG ([id number]) on 03/19/2024 9:21:28 AM Referred By: Confirmed By: TAMARA FLORES MD
[2024-03-18 08:37] LABS: Absolute Lymphocyte Count 1.48 X10^3/uL (0.83-4.51); Absolute Neutrophil Count 20.4 X10^3/uL (2.0-7.7); Basophil# 0.11 X10^3/uL; Basophil% 0.4 % (0-1); Eosinophils% 4.7 % (0-5); Hematocrit 47.8 % (40-54); Hemoglobin 16.5 g/dL (13.0-16.5); Lymphocyte # 1.48 X10^3/ul (0.83-4.51); Lymphocyte % 5.7 % (19-41); Mean Corp Hgb Conc 34.5 g/dL (32-36); Mean Corpuscular Hgb 32.3 pg (27.0-32.0); Mean Corpuscular Volume 93.5 fL (80-94); Mean Platelet Vol. 11.8 fl (6.2-12.0); Monocyte% 8.5 % (0-10); NRBC Flagged by Analyzer 0 % (0-5); Neutrophil # 20.39 X10^3/uL (2.7-7.7); Neutrophil % 79.1 % (47-70); POSITIVE DIFFERENTIAL YES; POSITIVE MORPHOLOGY YES; Platelet Count 225 K/mm3 (150-450); RBC Distribution Width CV 12.6 % (11.6-14.6); RBC Distribution Width SD 42.8 fl (35.1-43.9); Red Blood Count 5.11 M/mm3 (4.6-6.2); White Blood Count 25.8 K/mm3 (4.4-11.0)
--- NOTE | 2024-03-18 08:50 | RAD_ITS ---
STUDY: X-RAY - ACUTE ABDOMINAL SERIES REASON FOR EXAM: Male, 88 years old. Distention, nausea and vomiting and tenderness TECHNIQUE: Single view of the chest. Supine, and decubitus view(s) of the abdomen were obtained. COMPARISON: None. FINDINGS: EKG electrodes are seen. Elevation of the right hemidiaphragm. Increased markings at the lung bases suggestive of atelectasis. There is borderline cardiomegaly. Normal mediastinum and alberto. Normal visualized pulmonary arteries. There is atherosclerotic calcification of the aortic arch with tortuosity. There is a moderate amount of colonic fecal material. Gas and fecal material is seen throughout the colon. An inferior vena cava filter seen. There are diffuse degenerative changes of the visualized lumbar spine. RAD/Acute Abdomen Inc Chest IMPRESSION: Moderate amount of fecal material is seen in the colon with mild gaseous distention of the colon. Electronically Signed: Ayden Garza MD at 9:24 EST ,
[2024-03-18 08:51] LABS: Base Excess -1 mmol/L (-2 to +2); Bicarbonate 22.4 mmol/L (22-26); Blood Gas Specimen Type ART; Mode Not entered; O2 Delivery Device Cannula; PO2 70 mmHG (75-100); SITE R Brach; SO2 95 % (95-99); Total Carbon Dioxide 23 mmol/L; pCO2 29.9 mmHg (35-45); pH 7.48 (7.35-7.45)
[2024-03-18 08:52] LABS: ALB/GLOB Ratio 0.5 RATIO (0.9-2.4); AST(SGOT) 47 U/L (15-37); Alanine Aminotransfer ALT/SGPT 19 U/L (16-61); Albumin, Serum 2.7 g/dL (3.2-5.0); Alkaline Phosphatase 116 U/L (45-117); Anion Gap 12 (5-15); BUN 19 mg/dL (7-18); BUN/Creat Ratio 17.8 RATIO (10-20); Calcium,Total 9.3 mg/dL (8.5-10.1); Chloride 92 mmol/L (98-107); Creatinine, Serum 1.07 mg/dL (0.70-1.30); EST Glomerular Filtration Rate 69 mL/min (>60); Est Glom Filt Rate - Afr Amer 84 mL/min (>60); Estimated Creatinine Clearance 49.27 ml/min; Globulin 5.2 g/dL (2.2-4.2); Glucose 203 mg/dL (74-106); Potassium 4.2 mmol/L (3.5-5.1); Protein, Total 7.9 g/dL (6.4-8.2); Sodium Level 129 mmol/L (136-145)
[2024-03-18 09:04] LABS: Lactic Acid 5.8 mmol/L (0.4-1.9)
[2024-03-18 09:14] LABS: Differential Indicated SCAN CRITERIA MET
--- NOTE | 2024-03-18 10:13 | CT_ITS ---
STUDY: CT CHEST WITHOUT CONTRAST REASON FOR EXAM: Male, 88 years old. Hypoxia, leukocytosis, SIRS RADIATION DOSAGE (If Supplied By Facility): CTDIvol = ( 16.75 ) mGy, DLP = ( 581.83 ) mGycm TECHNIQUE: Transaxial imaging was performed without the administration of intravenous contrast material. Multiplanar coronal and sagittal images were reformatted. Individualized dose optimization techniques were used for this CT. COMPARISON: Comparison is made with prior study dated January 10, 2024. FINDINGS: CHEST Azygos lobe. This is a normal variant. Increased markings with areas of confluence at both lung bases suggestive of either bibasilar atelectasis and/or early infiltrate. This is more prominent at the right lung base. Small amount of fluid is seen in the right major fissure. There is no demonstrated pleural abnormality. There are calcifications of the coronary arteries. Normal mediastinum. Normal hilar regions. Normal unenhanced pulmonary arteries. There is atherosclerotic calcification of the aortic arch with tortuosity and elongation of the aortic arch and descending thoracic aorta. There are multi-level degenerative changes of the thoracic spine. Fluid-filled stomach. CT/Chest without Contrast IMPRESSION: Increased markings at both lung bases suggestive of atelectasis and/or early infiltrates more prominent at the right lung base. Small amount of fluid is seen in the right major fissure. Electronically Signed: Ayden Garza MD at 11:11 EST ,
[2024-03-18] MEDS: Cefepime HCl 2 GM in 0.9% Normal Saline (100mL MB+) 100 ML IV (10:20)
[2024-03-18] MEDS: 0.9% Normal Saline (1000mL) 1,000 ML 999 ML IV ×2 (10:27→11:15)
--- NOTE | 2024-03-18 10:51 | EX.ED.DYSGE1 ---
HPI History of Present Illness Chief Complaint: Abd Pain Detail of Chief Complaint: Abdominal pain, recent diagnosis COVID Informant: patient (Patient is not a good informant.) and SNF Limited: coma Onset/Context/Timing Onset: Today (Abdominal pain today. He reports nausea. He also endorses constipation.) and Days (With respect to the respiratory symptoms requiring oxygen) Context: - (The shortness of breath started suddenly.) Timing: Continuous and Waxes and wanes Quality: Pain Location: Entire abdomen Current Severity: Mild Maximum Severity: Moderate Worsened by: Palpation Relieved by: Nothing Associated Symptoms Associated Symptoms: Cough, shortness of breath subjective fever and aches Narrative Narrative: Patient is an 88-year-old male. He has a signed DNR Comfort Care arrest document that accompanied him from the nursing facility. Has a neck brace in for a closed C2 fracture. The fracture was diagnosed July 2022. He did not have follow-up x-rays and has been wearing the collar since because he refuses not to wear it. The nursing facility asked if a CT of the neck could be obtained for follow-up. Spoke with Fani and from radiology. Since he has no neck complaints a CT of the neck cannot be justified and probably would not be covered through the emergency department. Patient is presently on oxygen. Does have a cough. His cough is productive of thick sputum. He is uncertain of the color. Respiratory therapist told me it is brown in color. He denies leg pain, swelling or discoloration. Prior similar symptoms: Yes Recent Illness/Hospitalization: Yes ([facility] at [facility] They were trying to manage him as ) [facility] Medical History Urinary retention Hypothyroidism Osteoporosis Hyperlipidemia Coronary artery disease Atrial fibrillation Mitral regurgitation Right arm weakness Sternal fracture Odontoid fracture Closed C2 fracture Fall Debility Home Medications ?Medication ?Instructions ?Recorded ?Last Taken ?Type Lactobacillus acidophilus 10 mg PO DAILY supplement 12/12/23 03/17/24 History (Acidophilus capsule) alendronate 70 mg tablet 70 mg PO QWEEK bone health 12/12/23 03/11/24 History calcium citrate 500 mg PO BID supplement 12/12/23 03/17/24 History propafenone 225 mg tablet 225 mg PO TID AFIB 12/12/23 03/17/24 History vit C 250 mg-vit E 200 unit-zinc 2 cap PO BID supplement 12/12/23 03/17/24 History ox 12.5 bl-trcrdn-hcdpkr-zeax capsule nitroglycerin 0.4 mg sublingual 0.4 mg sublingual Q5M PRN 12/20/23 Unknown Rx tablet Cardiac/Chest Pain #0 tabs polyethylene glycol 3350 17 17 g PO DAILY bowels #119 grams 12/20/23 03/17/24 Rx gram/dose oral powder acetaminophen 500 mg tablet 1,000 mg (2 x 500 mg) PO Q8 #0 tabs 01/16/24 03/17/24 Rx atorvastatin 10 mg tablet 5 mg (1/2 x 10 mg) PO QHS #0 tabs 01/16/24 03/17/24 Rx lactulose 20 gram/30 mL oral 20 g (30 mL) PO BID #0 mL 01/16/24 03/17/24 Rx solution lidocaine 5 % topical patch 1 patch topical DAILY #0 ea 01/16/24 03/17/24 Rx magnesium citrate 300 ml PO DAILY PRN Constipation 01/16/24 Unknown Rx #0 mL mirtazapine 15 mg tablet 7.5 mg (1/2 x 15 mg) PO QHS #0 tabs 01/16/24 03/16/24 Rx ondansetron 4 mg disintegrating 8 mg (2 x 4 mg) PO Q8H PRN PRN 01/16/24 03/17/24 Rx tablet Nausea/Vomiting #0 tabs sennosides 8.6 mg-docusate sodium 2 tab PO BID #0 tabs 01/16/24 03/17/24 Rx 50 mg tablet (Stimulant Laxative Plus) sodium chloride 0.65 % nasal spray 2 spray NASAL Q1H PRN NASAL 01/16/24 Unknown Rx aerosol (Deep Sea Nasal) DRYNESS #0 mL tramadol 50 mg tablet 50 mg PO Q6H PRN PRN Pain Score 01/16/24 03/18/24 Rx 1-5 Or Pre Pt/Ot 3 days #12 tabs dexamethasone 4 mg tablet 4 mg PO BID COVID+ 03/18/24 03/17/24 History promethazine 25 mg rectal 25 mg RI Q6H PRN nausea and 03/18/24 03/17/24 History suppository vomiting tamsulosin 0.4 mg capsule 0.4 mg PO BID 03/18/24 03/17/24 History Allergy/AdvReac Type Severity Reaction Status Date / Time Penicillins Allergy Mild Rash Verified 03/18/24 08:03 Family History Sister Cancer Brother CAD (coronary artery disease) Brother CAD (coronary artery disease) Brother Diabetes Brother CAD (coronary artery disease) Surgical History History of coronary angioplasty History of vasectomy History of cataract surgery History of resection of large bowel Social History household members: none Smoking Status: Never smoker alcohol intake: never substance use type: does not use ROS ROS ED Constitutional Constitutional ED: Reports chills and subjective; Denies fever(s) or sweats Eyes Eyes: Denies blurry vision or change in vision ENT ENT ED: Reports rhinorrhea; Denies ear pain or sore throat Cardiovascular Cardiovascular: Denies chest pain, orthopnea, palpitations or paroxysmal nocturnal dyspnea Respiratory/Chest Respiratory/Chest: Reports cough, dyspnea and sputum; Denies orthopnea or paroxysmal nocturnal dyspnea Gastrointestinal Gastrointestinal: Reports abdominal pain, constipation and nausea; Denies diarrhea or melena Genitourinary Genitourinary ED: Denies dysuria, hematuria or urinary frequency Musculoskeletal Musculoskeletal: Denies arthralgias, myalgias or neck pain Integumentary Denies rash Neurologic Neurologic: Reports other Details: Generalized weakness. Patient has a history of debility. ; Denies headache(s) or paresthesias Psychiatric Psychiatric: Denies anxiety or depression Endocrine Endocrinology: Denies cold intolerance or heat intolerance Hematologic/Lymphatic Hematologic/Lymphatic: Reports systems reviewed and no addt'l complaints, except as documented and easy bruising EXAM Physical Exam Const Vital Signs: 03/18/24 08:05 03/18/24 08:18 03/18/24 08:47 Temperature 97.6 F L Temperature Source Oral Pulse Rate 136 H Respiratory Rate 29 H Blood Pressure 110/81 H Blood Pressure Mean 90 Pulse Ox 95 95 Oxygen Delivery Method Nasal Cannula Nasal Cannula Nasal Cannula Oxygen Flow Rate (L/min) 3 4 03/18/24 10:08 03/18/24 11:16 Temperature 97.8 F Temperature Source Oral Pulse Rate 133 H 130 H Respiratory Rate 34 H 32 H Blood Pressure 99/81 H 117/74 Blood Pressure Mean 87 88 Pulse Ox 91 92 Oxygen Delivery Method Room Air Room Air Oxygen Flow Rate (L/min) Vital signs remarkable for tachycardia and tachypnea. His saturation 95% on 3 L. Patient's initial blood pressure was 110/81. Repeat at 1008 was 99/81. Patient's pulse ox on room air is 91%. This is at rest. Positive well developed and unkempt Constitutional Narrative: Patient has conversational dyspnea. General Appearance ED: unkempt and well developed; Negative for cyanotic, diaphoretic, NAD or pallor HEENT Reports dry mucous membranes HEENT Narrative: Head is atraumatic normocephalic. Ears normal. Positive hearing aids. Nares patent. Posterior pharynx is normal. Mouth ED: Yes dry mucous membranes Mouth: dry mucous membranes Eyes PERRL and EOMs intact bilaterally General Eye ED: Negative for pale conjunctiva or scleral icterus Neck no lymphadenopathy, supple and no JVD Neck Narrative: Trachea is midline. There is no stridor. Chest Wall inspection of chest normal and palpation of chest normal Resp normal respiratory effort and No clear to auscultation bilaterally Resp Narrative: Rales greater on right compared to left. Equivocal egophony. There is no increased vocal fremitus. Question of slight wheeze on the right with forced expiration only. Cardio regular rhythm, S1 normal heart sound, S2 normal heart sound and no murmurs Rate: tachycardic GI GI Narrative: Abdomen is distended tympanitic with decreased bowel sounds. He complains of mild tenderness. There is no guarding or peritoneal findings. Palpation: soft Back/Spine no CVA tenderness Extremity Extremity Narrative: Otherwise unremarkable. General Extremety ED: Yes edema General Extremity: edema Neuro oriented x3 and CN's II-XII intact bilaterally Sensorium / Orientation: alert Psych mental status grossly normal Appearance: unkempt Skin no rashes or lesions noted and no wounds General Skin Exam: Negative for jaundice or pallor Sepsis Attestation Sepsis Alert: Yes Sepsis Attestation: Agree w/Sepsis Date exam was performed: 03/18/24 Time exam was performed: 09:36 Possible Source of Sepsis: Pulmonary Sepsis Organ Dysfunction Criteria Present: Lactic Acid > 2 mmol/L Supportive Findings: Patient's case discussed with Dr. Ever Storm the admitting hospitalist. Since patient only has 1 endorgan dysfunction and the fact that he has not Medicare A and B by definition he is not sepsis. Sepsis Note Date exam was performed: 03/18/24 Time exam was performed: 12:22 Sepsis Attestation: Sepsis re-evaluation was performed MDM MDM MDM Narrative Medical decision making narrative: Abdominal films with x-ray was obtained to assess for pneumonia, ileus, obstruction. CBC, competence metabolic panel lactate to assess for endorgan dysfunction and specifically renal function, CO2 anion gap, electrolytes and specifically hyponatremia. Lactate was obtained as well. [facility] from the [facility] were reviewed. He is DNR Comfort Care arrest. CT of the neck for follow-up was not obtained since he has no neck pain and unable to justify CT of the neck to be done emergently through the emergency department. Since there was no evidently knowing the chest x-ray and the fact that he is hypoxic with colored sputum white count CT of the chest was obtained to determine if he does have an infiltrate on the right. Based on the x-ray appears he may have dextrocardia versus the way he is positioned. Patient has nonspecific gas pattern with increased fecal matter. This would explain his distention and mild discomfort. Since patient has a lactate of 5.8 and concerned he has pneumonia he did receive fluid bolus. He was empirically started on antibiotics to cover healthcare acquired organisms since he resides at a nursing facility and had a prolonged stay in the hospital and transitional care unit. History & Record Review Discussion w/independent historian: Patient Additional record(s) reviewed:: Prior outpatient record (Discharge summary from TCU authored by Dr. Ceballos was reviewed. He was brought in for debility with consult to PT OT, dysphagia and referred to speech therapy. He was noted to have a C2 fracture in collar. Also had history of osteoporosis, hyperlipidemia and atrial fibrillation. The C2 fracture wa) Lab Data Attestation: I reviewed the patient's lab results. Lab results narrative: White count is 25.8 thousand. He does have a shift with no bandemia. Electrolytes are marked for hyponatremia which is new. Chloride is 92. Creatinine slightly elevated 1.07 with an estimated GFR 69. Glucose is elevated 203 with a normal CO2 anion gap. Lactate elevated 5.8. Liver enzymes are normal. Labs: Laboratory Results - last 24 hr 03/18/24 08:14 WBC 25.8 H RBC 5.11 Hgb 16.5 Hct 47.8 MCV 93.5 MCH 32.3 H MCHC 34.5 RDW Std Deviation 42.8 RDW Coeff of Isabel 12.6 Plt Count 225 MPV 11.8 Immature Gran % (Auto) 1.600 H Neut % (Auto) 79.1 H Lymph % (Auto) 5.7 L [place] % (Auto) 8.5 Eos % (Auto) 4.7 Baso % (Auto) 0.4 Absolute Neuts (auto) 20.4 H Absolute Lymphs (auto) 1.48 Nucleated RBC % 0 Sodium 129 L Potassium 4.2 Chloride 92 L Carbon Dioxide 24.0 Anion Gap 12 BUN 19 H Creatinine 1.07 Estim Creat Clear Calc 49.27 Est GFR (MDRD) Af Amer 84 Est GFR (MDRD) Non-Af 69 BUN/Creatinine Ratio 17.8 Glucose 203 H Lactic Acid 5.8 H* Calcium 9.3 Total Bilirubin 1.10 H AST 47 H ALT 19 Alkaline Phosphatase 116 Total Protein 7.9 Albumin 2.7 L Globulin 5.2 H Albumin/Globulin Ratio 0.5 L ABG Data ABG results: ABG 03/18/24 08:47 Specimen Type ART Sample Site R Brach pH 7.48 H Bicarbonate Actual 22.4 Total CO2 23 Base Excess -1 O2 Saturation 95 ABG pCO2 29.9 L ABG pO2 70 L O2 Delivery Device Cannula Vent Mode Not entered Radiography Chest X-Ray - ED: 1 View and Read by ED Physician (Documented under the MDM portion of the medical record.) Diagnostic Testing: Clinical Impression(s) from Imaging Studies Acute Abdomen Series 03/18/24 08:50 IMPRESSION: Moderate amount of fecal material is seen in the colon with mild gaseous distention of the colon. Electronically Signed: Ayden Garza MD at 9:24 EST , Chest CT 03/18/24 10:13 IMPRESSION: Increased markings at both lung bases suggestive of atelectasis and/or early infiltrates more prominent at the right lung base. Small amount of fluid is seen in the right major fissure. Electronically Signed: Ayden Garza MD at 11:11 EST , Rhythm Strip Rhythm Strip: Sinus Tach Rate: 129 Ectopy: PVC(s) (Occasional) EKG Initial EKG: Attestation: I personally reviewed and interpreted this EKG as follows: Interpretation: Sinus Tachycardia (Rate is 135. Complexes are narrow. RI interval is under 60 ms. QRS duration 86 ms. QT duration 276. [place] is normal. There is artifact due to his labored breathing.) Management Discussion w/another healthcare provider: Hospitalist (Documented under the critical care portion of the EMR) Critical Care Time Critical Care Time: Yes Critical care time (excluding procedures): 30-74 minutes (32), Including time spent: (History, physical, documentation, independent interpretation of laboratory results and images. Treatment for presumed sepsis.), Discussing w/Patient &/or Family/Curing Machine Operator, Discussing w/Consultants (Dr. Vaughn Storm requested a UA since he was admitted recently for urinary tract infection.) and Arranging Admission or Transfer Discharge Plan Triage Chief Complaint: Abd Pain ED Provider: Nas Estevez Dx/Rx/DC Orders Clinical Impression: Pneumonia, Debility, Hypothyroidism, BPH (benign prostatic hyperplasia), S/P IVC filter, Hypoxia, Acidosis, lactic, SIRS (systemic inflammatory response syndrome), Sinus tachycardia, Elevated serum creatinine Prescriptions: No Action alendronate 70 mg tablet 70 mg PO QWEEK calcium citrate 250 mg calcium tablet 500 mg PO BID Acidophilus Capsule 10 mg PO DAILY vit C-E-zinc ek-xjlk-yvy-zeax 250 mg-200 unit -12.5 mg-1 mg capsule 2 cap PO BID propafenone 225 mg tablet 225 mg PO TID atorvastatin 10 mg Tablet 5 mg PO QHS Qty: 0 0RF sennosides-docusate sodium [Stimulant Laxative Plus] 8.6-50 mg Tablet 2 tab PO BID Qty: 0 0RF tramadol 50 mg Tablet 50 mg PO Q6H PRN PRN (Reason: Pain Score 1-5 Or Pre Pt/Ot) 3 Days Qty: 12 0RF acetaminophen 500 mg Tablet 1,000 mg PO Q8 Qty: 0 0RF lidocaine 5 % Adhesive Patch,Medicated 1 patch topical DAILY Qty: 0 0RF Protocol: *Topical Application Instructions APPLICATION INSTRUCTIONS: Posterior thoracic spine without removing c collar. magnesium citrate Solution 300 ml PO DAILY PRN (Reason: Constipation) Qty: 0 0RF mirtazapine 15 mg Tablet 7.5 mg PO QHS Qty: 0 0RF ondansetron 4 mg Tablet,Disintegrating 8 mg PO Q8H PRN PRN (Reason: Nausea/Vomiting) Qty: 0 0RF Deep Sea Nasal 0.65 % Aerosol,[place] 2 spray NASAL Q1H PRN (Reason: NASAL DRYNESS) Qty: 0 0RF lactulose 20 gram/30 mL Solution 20 g PO BID Qty: 0 0RF nitroglycerin 0.4 mg Tablet, Sublingual 0.4 mg sublingual Q5M PRN (Reason: Cardiac/Chest Pain) Qty: 0 0RF polyethylene glycol 3350 17 gram/dose powder 17 g PO DAILY Qty: 119 0RF dexamethasone 4 mg tablet 4 mg PO BID promethazine 25 mg suppository 25 mg RI Q6H PRN (Reason: nausea and vomiting) tamsulosin 0.4 mg capsule 0.4 mg PO BID Primary Care Provider: Rayo Lanza Referrals: Rayo Lanza DO [Primary Care Provider] - Print Language: Marshallese Disposition Disposition: Acute Care Hospital [facility]
[2024-03-18] MEDS: Vancomycin HCl 2,000 MG in 0.9% Normal Saline (500mL Bag) 500 ML 250 MG IV (11:03)
[2024-03-18 12:29] LABS: Reflex Lactate? Y
[2024-03-18 15:05] LABS: Lactic Acid 3.7 mmol/L (0.4-1.9)
--- NOTE | 2024-03-18 15:54 | PCM.RX.CS ---
Consult Antibiotic Management Pharmacy has been consulted to manage selected antibiotic: Vancomycin Type of Intervention Type of Consult: New start Suspected Infection Suspected Infection: Pneumonia Prior Doses of Antibiotics Prior Doses of Antibiotics Received/Current Regimen: 03/18/24 @ 1103 Vancomycin 2000mg x1 adminstered in Emergency room Labs Labs: Sodium 129 mmol/L (136-145) L 03/18/24 08:14 Potassium 4.2 mmol/L (3.5-5.1) 03/18/24 08:14 Chloride 92 mmol/L (98-107) L 03/18/24 08:14 Carbon Dioxide 24.0 mmol/L (21.0-32.0) 03/18/24 08:14 Anion Gap 12 (5-15) 03/18/24 08:14 BUN 19 mg/dL (7-18) H 03/18/24 08:14 Creatinine 1.07 mg/dL (0.70-1.30) 03/18/24 08:14 Est GFR (MDRD) Af Amer 84 mL/min (>60) 03/18/24 08:14 Est GFR (MDRD) Non-Af 69 mL/min (>60) 03/18/24 08:14 BUN/Creatinine Ratio 17.8 RATIO (10-20) 03/18/24 08:14 Glucose 203 mg/dL (74-106) H 03/18/24 08:14 Dosing Weight Weight used for dosin kg Estimated Creatinine Clearance Estimated Creatinine Clearance: 49 Goal Trough Goal Trough: 15-20 mcg/mL Pharmacy Plan for Drug Dosing Pharmacy Plan for Drug Dosing: Start Vancomycin 500mg every 12 hours starting 03/18/24 @ 2300 Pharmacy Service will continue to monitor and adjust dosing as required. Follow-Up Labs Follow-Up Labs: Trough: Vancomycin Date/Time Labs Ordered Labs to be done on [date and time ordered]: 03/19/24 @ 2235
[2024-03-18] MEDS: Lactulose 20 GM/30 ML UDC 30 GM PO (16:28)
[2024-03-18] MEDS: Ondansetron ODT 4 MG Tablet 8 MG PO (16:28)
[2024-03-18] MEDS: Acetaminophen 500 MG Tablet 1000 MG PO ×2 (16:33→22:11)
[2024-03-18] MEDS: dexAMETHasone 4 MG Tablet 6 MG PO (16:33)
[2024-03-18] MEDS: Bisacodyl 5 MG Tablet 10 MG PO (16:33)
[2024-03-18] MEDS: Remdesivir 200 MG in 0.9% Normal Saline (250mL Bag) 210 ML 250 MG IV (16:34)
--- NOTE | 2024-03-18 17:06 | PCM.HP.STD ---
HPI - General General Date of Admission: 03/18/24 Date of Service: 03/18/24 Chief Complaint: Abdominal pain, low pulse ox HPI Narrative Katharine MENDIETA, is a 88 M who presents to the emergency room at [facility] from a local extended care facility with complaints of abdominal pain over the last several months and low pulse ox. Patient recently was diagnosed on 03/14/2024 with COVID-19 infection, he has been on dexamethasone for the last 2 days, they had not started Paxlovid on the patient. Patient has some cognitive impairment, he was not able to ride a good history. He recently had a neck fracture-on or about December 01, 2023, the facility stated that the patient was due to get imaging studies soon and he had been wearing a rigid collar. It appears in the medical record here the patient did not have surgery for the neck fracture and a rigid cervical collar was used. Workup in the emergency room included a CBC which showed an elevated white blood cell count at 25.8, chemistry profile was abnormal for a sodium of 129, glucose of 203, and a lactic acid of 5.8. An acute abdomen series was obtained, there is noted to be a moderate amount of fecal material in the colon with mild gaseous distention of the colon, CT of the chest was obtained which showed increased markings at both lung bases suggestive of atelectasis and/or early infiltrates more prominent at the right lung base. Initially patient was on 3 to 4 L and this was weaned to room air while he was in the emergency room at rest. Patient will be admitted to [place] [address] for pneumonia and COVID-19 infection, he was given cefepime and vancomycin-this will be continued in the hospital-patient will also be placed on remdesivir and continue dexamethasone. [facility] Medical History Urinary retention Hypothyroidism Osteoporosis Hyperlipidemia Coronary artery disease Atrial fibrillation Mitral regurgitation Right arm weakness Sternal fracture Odontoid fracture Closed C2 fracture Fall Debility Home Medications ?Medication ?Instructions ?Recorded ?Last Taken ?Type Lactobacillus acidophilus 10 mg PO DAILY supplement 12/12/23 03/17/24 History (Acidophilus capsule) alendronate 70 mg tablet 70 mg PO QWEEK bone health 12/12/23 03/11/24 History calcium citrate 500 mg PO BID supplement 12/12/23 03/17/24 History propafenone 225 mg tablet 225 mg PO TID AFIB 12/12/23 03/17/24 History vit C 250 mg-vit E 200 unit-zinc 2 cap PO BID supplement 12/12/23 03/17/24 History ox 12.5 nn-[id number] capsule nitroglycerin 0.4 mg sublingual 0.4 mg sublingual Q5M PRN 12/20/23 Unknown Rx tablet Cardiac/Chest Pain #0 tabs polyethylene glycol 3350 17 17 g PO DAILY bowels #119 grams 12/20/23 03/17/24 Rx gram/dose oral powder acetaminophen 500 mg tablet 1,000 mg (2 x 500 mg) PO Q8 #0 tabs 01/16/24 03/17/24 Rx atorvastatin 10 mg tablet 5 mg (1/2 x 10 mg) PO QHS #0 tabs 01/16/24 03/17/24 Rx lactulose 20 gram/30 mL oral 20 g (30 mL) PO BID #0 mL 01/16/24 03/17/24 Rx solution lidocaine 5 % topical patch 1 patch topical DAILY #0 ea 01/16/24 03/17/24 Rx magnesium citrate 300 ml PO DAILY PRN Constipation 01/16/24 Unknown Rx #0 mL mirtazapine 15 mg tablet 7.5 mg (1/2 x 15 mg) PO QHS #0 tabs 01/16/24 03/16/24 Rx ondansetron 4 mg disintegrating 8 mg (2 x 4 mg) PO Q8H PRN PRN 01/16/24 03/17/24 Rx tablet Nausea/Vomiting #0 tabs sennosides 8.6 mg-docusate sodium 2 tab PO BID #0 tabs 01/16/24 03/17/24 Rx 50 mg tablet (Stimulant Laxative Plus) sodium chloride 0.65 % nasal spray 2 spray NASAL Q1H PRN NASAL 01/16/24 Unknown Rx aerosol (Deep Sea Nasal) DRYNESS #0 mL tramadol 50 mg tablet 50 mg PO Q6H PRN PRN Pain Score 01/16/24 03/18/24 Rx 1-5 Or Pre Pt/Ot 3 days #12 tabs dexamethasone 4 mg tablet 4 mg PO BID COVID+ 03/18/24 03/17/24 History promethazine 25 mg rectal 25 mg MS Q6H PRN nausea and 03/18/24 03/17/24 History suppository vomiting tamsulosin 0.4 mg capsule 0.4 mg PO BID 03/18/24 03/17/24 History Allergy/AdvReac Type Severity Reaction Status Date / Time Penicillins Allergy Mild Rash Verified 03/18/24 08:03 Family History Sister Cancer Brother CAD (coronary artery disease) Brother CAD (coronary artery disease) Brother Diabetes Brother CAD (coronary artery disease) Surgical History History of coronary angioplasty History of vasectomy History of cataract surgery History of resection of large bowel Social History household members: none Smoking Status: Never smoker alcohol intake: never substance use type: does not use ROS ROS Narrative Review of systems was not obtained due to patient's cognitive impairment Vital Signs Vital Signs Vital Signs: 03/18/24 08:05 03/18/24 08:18 03/18/24 08:47 Temperature 97.6 F L Temperature Source Oral Pulse Rate 136 H Respiratory Rate 29 H Respiratory Effort Respiratory Pattern Blood Pressure 110/81 H Blood Pressure Mean 90 Blood Pressure Source Blood Pressure Position Blood Pressure Location Pulse Ox 95 95 Oxygen Delivery Method Nasal Cannula Nasal Cannula Nasal Cannula Oxygen Flow Rate (L/min) 3 4 03/18/24 10:08 03/18/24 11:16 03/18/24 12:55 Temperature 97.8 F 97.8 F Temperature Source Oral Pulse Rate 133 H 130 H 130 H Respiratory Rate 34 H 32 H 32 H Respiratory Effort Respiratory Pattern Blood Pressure 99/81 H 117/74 117/74 Blood Pressure Mean 87 88 88 Blood Pressure Source Blood Pressure Position Blood Pressure Location Pulse Ox 91 92 92 Oxygen Delivery Method Room Air Room Air Oxygen Flow Rate (L/min) 03/18/24 13:00 03/18/24 15:19 03/18/24 15:29 Temperature 98.7 F Temperature Source Oral Pulse Rate 128 H 134 H Respiratory Rate 30 H 32 H Respiratory Effort Short of Breath Labored Respiratory Pattern Tachypnea Blood Pressure 135/93 H 123/78 H Blood Pressure Mean 107 93 Blood Pressure Source Monitor Blood Pressure Position Semi-Fowlers Blood Pressure Location Left Arm Pulse Ox 92 93 Oxygen Delivery Method Room Air Nasal Cannula Nasal Cannula Oxygen Flow Rate (L/min) 2 2 03/18/24 15:50 Temperature Temperature Source Pulse Rate Respiratory Rate Respiratory Effort Respiratory Pattern Blood Pressure Blood Pressure Mean Blood Pressure Source Blood Pressure Position Blood Pressure Location Pulse Ox 94 Oxygen Delivery Method Nasal Cannula Oxygen Flow Rate (L/min) 2 Weight Weight: 75.206 kg Body Mass Index (BMI) 23.8 Physical Exam Const alert and no apparent distress Constitutional Narrative: Patient exhibited some cognitive impairment, he did not know the year General Appearance: cooperative, well kempt and well developed Orientation / Consciousness: awake, oriented to person and oriented to place HEENT normocephalic, head/scalp atraumatic, hearing grossly normal bilaterally and moist oral mucous membranes Eyes PERRL, EOMs intact bilaterally and conjunctivae normal Neck supple, no JVD, thyroid normal and no carotid bruits General: trachea midline Resp normal respiratory effort, no retractions, no use of accessory muscles and clear to auscultation bilaterally Auscultation: Negative for rales, rhonchi or wheezes Cardio regular rate, regular rhythm, S1 normal heart sound, S2 normal heart sound, no murmurs, no rub and no gallops GI normal to inspection, nondistended, normoactive bowel sounds, soft to palpation, non-tender and non-distended Extremity no clubbing, cyanosis or edema Skin no rashes or lesions noted General Skin Exam: no breakdown Neuro CN's II-XII intact bilaterally, no focal motor deficits and no sensory deficits noted Sensorium / Orientation: awake, alert, oriented to person and oriented to place Speech: speech normal Psych Psych Narrative: Patient exhibits some mild cognitive impairment Results Lab / Micro Data 03/18/24 08:14 03/18/24 08:14 Labs: Laboratory Results - last 24 hr 03/18/24 08:14: WBC 25.8 H, RBC 5.11, Hgb 16.5, Hct 47.8, MCV 93.5, MCH 32.3 H, MCHC 34.5, RDW Std Deviation 42.8, RDW Coeff of Isabel 12.6, Plt Count 225, MPV 11.8, Immature Gran % (Auto) 1.600 H, Neut % (Auto) 79.1 H, Lymph % (Auto) 5.7 L, [place] % (Auto) 8.5, Eos % (Auto) 4.7, Baso % (Auto) 0.4, Absolute Neuts (auto) 20.4 H, Absolute Lymphs (auto) 1.48, Nucleated RBC % 0, Sodium 129 L, Potassium 4.2, Chloride 92 L, Carbon Dioxide 24.0, Anion Gap 12, BUN 19 H, Creatinine 1.07, Estim Creat Clear Calc 49.27, Est GFR (MDRD) Af Amer 84, Est GFR (MDRD) Non-Af 69, BUN/Creatinine Ratio 17.8, Glucose 203 H, Lactic Acid 5.8 H*, Calcium 9.3, Total Bilirubin 1.10 H, AST 47 H, ALT 19, Alkaline Phosphatase 116, Total Protein 7.9, Albumin 2.7 L, Globulin 5.2 H, Albumin/Globulin Ratio 0.5 L 03/18/24 14:28: Lactic Acid 3.7 H* ABG Data ABG results: ABG 03/18/24 08:47 Specimen Type ART Sample Site R Brach pH 7.48 H Bicarbonate Actual 22.4 Total CO2 23 Base Excess -1 O2 Saturation 95 ABG pCO2 29.9 L ABG pO2 70 L O2 Delivery Device Cannula Vent Mode Not entered Rhythm Strip Rhythm Strip: Sinus Tach Rate: 129 Ectopy: PVC(s) (Occasional) Imaging Radiology Impression Acute Abdomen Series 03/18/24 08:50 IMPRESSION: Moderate amount of fecal material is seen in the colon with mild gaseous distention of the colon. Electronically Signed: Ayden Garza MD at 9:24 EST , Chest CT 03/18/24 10:13 IMPRESSION: Increased markings at both lung bases suggestive of atelectasis and/or early infiltrates more prominent at the right lung base. Small amount of fluid is seen in the right major fissure. Electronically Signed: Ayden Garza MD at 11:11 EST , Assessment & Plan Assessment/Plan (1) Pneumonia: PLAN: Plan 1. Community-acquired pneumonia-patient was admitted to [facility] 3, he will be given IV cefepime and vancomycin, respiratory panel will be obtained, sputum culture will be obtained if possible, aerosol treatments will be given #2 COVID-19 infection-patient will remain on dexamethasone, he was placed on remdesivir #3 hypoxia secondary to #1 #2-pulse ox will be monitored, oxygen will be adjusted accordingly #4 metabolic encephalopathy-patient is a poor informant, he does know that he is in the hospital and he is oriented to self however, complicates care, management, recovery, and prognosis #5 C2 neck fracture treated with rigid cervical collar-onset November 2023, patient is not wearing a collar at this time #6 paroxysmal atrial fibrillation-it appears that the patient is not on anticoagulation due to fall risk, patient does have an IVC filter in place, there was notation in the medical records that patient was having hematuria and an IVC filter was placed. #7 obstipation-it appears patient has a past medical history of severe constipation with pseudoobstruction, I will place the patient on lactulose Total clinical time spent by myself addressing the patient's medical issues, reviewing all of his data, and collaborating with patient's care team: 75 minutes Charges/Coding Visit Charges Inpatient E&M: 38239 Init Hosp L3
[2024-03-18] MEDS: Ipratropium/Albuterol Sulfate 3 ML AMPUL.NEB INHALATION (19:58)
--- NOTE | 2024-03-18 21:02 | CPS ---
[1958] Pt. ripped aerosol mask off one minute into the tx. Pt. claimed he doesn't want any breathing tx.'s.
[2024-03-18] MEDS: Lactulose 20 GM/30 ML UDC PO (22:10)
[2024-03-18] MEDS: Senna/Docusate Sodium 1 Tablet 2 TABLET PO (22:11)
[2024-03-18] MEDS: Propafenone 150 MG Tablet 225 MG PO (22:11)
[2024-03-18] MEDS: Heparin Injection (Vial) 5,000 UNIT/ML VIAL 5000 UNIT SC (22:11)
[2024-03-18] MEDS: Mirtazapine 15 MG Tablet 7.5 MG PO (22:11)
[2024-03-18] MEDS: Tamsulosin HCl 0.4 MG Capsule PO (22:12)
[2024-03-18] MEDS: Atorvastatin Calcium 10 MG Tablet 5 MG PO (22:12)
[2024-03-18] MEDS: Cefepime HCl 1 GM in 0.9% Normal Saline (50mL MB+) 50 ML IV (22:13)
[2024-03-18] MEDS: 0.9% Saline Lock 10 ML Syringe IV (23:01)
[2024-03-18] MEDS: Vancomycin IV 500 MG/100 ML BAG 100 MG IV (23:01)
[2024-03-19] VITALS (7 sets, daily range): BP systolic 98–130; BP diastolic 61–87; PULSE 52–128; RESP 20–30; TEMP 36.3–37.5; O2SAT 91–95
[2024-03-19] MEDS: Propafenone 150 MG Tablet 225 MG PO ×3 (06:05→21:33)
[2024-03-19] MEDS: Acetaminophen 500 MG Tablet 1000 MG PO ×3 (06:05→21:32)
[2024-03-19 06:46] LABS: Absolute Lymphocyte Count 1.71 X10^3/uL (0.83-4.51); Absolute Neutrophil Count 24.9 X10^3/uL (2.0-7.7); Basophil# 0.07 X10^3/uL; Basophil% 0.2 % (0-1); Hematocrit 42.2 % (40-54); Hemoglobin 14.4 g/dL (13.0-16.5); Lymphocyte # 1.71 X10^3/ul (0.83-4.51); Mean Corp Hgb Conc 34.1 g/dL (32-36); Mean Corpuscular Hgb 31.8 pg (27.0-32.0); Mean Corpuscular Volume 93.2 fL (80-94); Mean Platelet Vol. 11.1 fl (6.2-12.0); Monocyte# 1.64 X10^3/uL; Monocyte% 5.8 % (0-10); NRBC Flagged by Analyzer 0 % (0-5); Neutrophil # 24.87 X10^3/uL (2.7-7.7); Neutrophil % 87.3 % (47-70); POSITIVE DIFFERENTIAL YES; Platelet Count 188 K/mm3 (150-450); RBC Distribution Width CV 12.8 % (11.6-14.6); RBC Distribution Width SD 43.4 fl (35.1-43.9); Red Blood Count 4.53 M/mm3 (4.6-6.2); White Blood Count 28.5 K/mm3 (4.4-11.0)
[2024-03-19 06:59] LABS: Differential Indicated SCAN CRITERIA MET
[2024-03-19 07:48] LABS: Polychromasia 1+
[2024-03-19 08:06] LABS: Anion Gap 7 (5-15); BUN 25 mg/dL (7-18); BUN/Creat Ratio 42.7 RATIO (10-20); Calcium,Total 8.7 mg/dL (8.5-10.1); Chloride 103 mmol/L (98-107); Creatinine, Serum 0.59 mg/dL (0.70-1.30); EST Glomerular Filtration Rate 139 mL/min (>60); Est Glom Filt Rate - Afr Amer 168 mL/min (>60); Glucose 159 mg/dL (74-106); Potassium 3.7 mmol/L (3.5-5.1); Sodium Level 132 mmol/L (136-145)
[2024-03-19] MEDS: Cefepime HCl 1 GM in 0.9% Normal Saline (50mL MB+) 50 ML IV ×2 (09:18→21:30)
[2024-03-19] MEDS: Polyethylene Glycol 3350 17 GM PACKET PO (09:38)
[2024-03-19] MEDS: Lidocaine 5% Patch 1 PATCH TOPICAL (09:38)
[2024-03-19] MEDS: Senna/Docusate Sodium 1 Tablet 2 TABLET PO ×2 (09:39→21:32)
[2024-03-19] MEDS: Tamsulosin HCl 0.4 MG Capsule PO ×2 (09:39→21:33)
[2024-03-19] MEDS: Heparin Injection (Vial) 5,000 UNIT/ML VIAL 5000 UNIT SC ×2 (09:39→21:32)
[2024-03-19] MEDS: dexAMETHasone 4 MG Tablet 6 MG PO (09:39)
[2024-03-19 09:50] LABS: Mucous, Urine 0 SEEN /hpf (<or=2+)
--- NOTE | 2024-03-19 09:52 | CASEMGMT ---
Social Work- SW updated contacts in chart. Pt is from [facility]; skilled. Plans are to return skilled when medically ready. SW remains available to follow. GREGG Correa
[2024-03-19] MEDS: Remdesivir 100 MG in 0.9% Normal Saline (250mL Bag) 230 ML 250 MG IV (09:58)
[2024-03-19 09:59] LABS: Color, Urine Yellow (Yellow); Glucose, Dipstick Normal (Normal); Ketone-Dipstick Negative (Negative); Leukocyte Esterase-Dipstick 500 /ul (Negative); Nitrite-Dipstick Positive (Negative); Occult Blood-Urine 50 /ul (Negative); Protein-Dipstick 100 mg/dl (Negative); Urine Clarity Cloudy (Clear); Urine Urobilinogen 1 mg/dl (Normal)
[2024-03-19 10:00] LABS: Urine Bilirubin Dipstick 1 mg/dL (Negative)
[2024-03-19 10:13] LABS: Bacteria 2+ /hpf (None Seen); Red Blood Cells-Urine 0-5 SEEN /hpf (0-5); Squamous Epithelial Cells - UA 0-5 SEEN /hpf (0-5); White Blood Cells 50-100 SEEN /hpf (0-5)
--- NOTE | 2024-03-19 10:27 | NURSING ---
Pt daughter Hannah given and call and updated on her father. She was asking about getting the CT of his neck that the neurologist was requesting he have done prior to that f/u appt to see if he could stop wearing the collar on his neck. Per daughter he was to have it on 26/09 but he has been refusing to wear it at the PR as well. She asked if she could see him and I told her that as long as she was not currently sick and she would have to follow COVID protocol with gowning up and she was ok with that.
[2024-03-19] MEDS: Vancomycin IV 500 MG/100 ML BAG 100 MG IV (11:27)
--- NOTE | 2024-03-19 16:00 | CASEMGMT ---
Discharge Planning Updates sent via careport to [facility] with request to submit for precert. Wendy Damon DC Planning Asst.
--- NOTE | 2024-03-19 19:22 | CT_ITS ---
STUDY: CT CERVICAL SPINE WITHOUT CONTRAST REASON FOR EXAM: Male, 88 years old. C2 fracture-November 2023, RADIATION DOSAGE (If Supplied By Facility): CTDIvol = ( 17.94 ) mGy, DLP = ( 417.78 ) mGycm TECHNIQUE: High resolution transaxial imaging was performed without contrast material. Sagittal and coronal images were reconstructed. Individualized dose optimization techniques were used for this CT. COMPARISON: December 28, 2023 FINDINGS: Normal craniovertebral junction. Normal anterior atlantoaxial articulation. There is stable fracture of the base of the odontoid process extending to the C2 body with anterior displacement of the odontoid by 0.8 cm. There is mild sclerosis at the margins. There is stable moderate canal stenosis at the C1-2 level. There is straightening of the normal cervical lordosis. C2-3: There is ankylosis of the disc space. Normal central canal and intervertebral neuroforamina. C3-4: Mild spurring. Facet spurring. No canal stenosis. Bilateral foraminal narrowing. C4-5: Disc space narrowing. Mild spurring. Facet spurring. No canal stenosis. Mild foraminal narrowing. C5-6: Mild spurring. Facet spurring and ankylosis. No canal stenosis. Neural foramina are patent. C6-7: Disc space narrowing with endplate change. Mild spurring. Mild facet spurring. No canal stenosis. Mild right foraminal narrowing. C7-T1: Disc space narrowing. Spurring. Facet spurring. No canal stenosis. Foraminal narrowing Normal visualized soft tissue structures. CT/Spine Cervical without Contras IMPRESSION: Multilevel degenerative changes, as described above. 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 Electronically Signed: Brian Abrams MD at 20:36 EST ,
--- NOTE | 2024-03-19 19:33 | PCM.PN.HOSP ---
Reason for Visit Reason for Visit: Diagnoses Pneumonia, unspecified organism (03/18/24) Subjective Subjective Patient was seen and examined today, he is on 2 L of oxygen via nasal cannula, he remains confused but is directable and answers simple questions appropriately. Patient's white blood cell count today was 28.5. Blood culture grew out Staph epidermidis which may be a contaminant. I talked briefly with the patient's daughter who is his POA, I will proceed with obtaining a cervical spine x-ray because of his previous C2 fracture. Objective Data Objective Data Vital Signs: Vital Signs Temp Pulse Resp BP Pulse Ox O2 Del Method O2 Flow Rate 97.4 F L 52 L 28 H 130/87 H 94 Nasal Cannula 2 03/19/24 17:57 03/19/24 17:57 03/19/24 17:57 03/19/24 17:57 03/19/24 17:57 03/19/24 17:57 03/19/24 17:57 Oxygen Flow Rate (L/min) 2 Oxygen Delivery Method Nasal Cannula Weight: 75.206 kg Body Mass Index (BMI) 23.8 Intake & Output: Intake and Output for Last 24 Hours 03/17/24 03/18/24 03/19/24 23:59 23:59 23:59 Intake Total 3430 / 3430 750 / 750 Output Total 300 / 300 700 / 700 Balance 3130 / 3130 50 / 50 Lab / Micro Data 03/19/24 06:35 03/19/24 06:35 Labs: Laboratory Results - last 24 hr 03/19/24 06:35: WBC 28.5 H, RBC 4.53 L, Hgb 14.4, Hct 42.2, MCV 93.2, MCH 31.8, MCHC 34.1, RDW Std Deviation 43.4, RDW Coeff of Isabel 12.8, Plt Count 188, MPV 11.1, Immature Gran % (Auto) 0.700, Neut % (Auto) 87.3 H, Lymph % (Auto) 6.0 L, [place] % (Auto) 5.8, Eos % (Auto) 0.0, Baso % (Auto) 0.2, Absolute Neuts (auto) 24.9 H, Absolute Lymphs (auto) 1.71, Nucleated RBC % 0, Platelet Estimate A, Polychromasia 1+, Sodium 132 L, Potassium 3.7, Chloride 103, Carbon Dioxide 22.0, Anion Gap 7, BUN 25 H, Creatinine 0.59 L, Estim Creat Clear Calc 65.90, Est GFR (MDRD) Af Amer 168, Est GFR (MDRD) Non-Af 139, BUN/Creatinine Ratio 42.7 H, Glucose 159 H, Calcium 8.7 03/19/24 09:30: Urine Color Yellow, Urine Clarity Cloudy, Urine pH 6.0, Ur Specific [place] 1.020, Urine Protein 100 H, Urine Glucose (UA) Normal, Urine Ketones Negative, Urine Occult Blood 50 H, Urine Nitrite Positive H, Urine Bilirubin 1 H, Urine Urobilinogen 1 H, Ur Leukocyte Esterase 500 H, Urine RBC 0-5 SEEN, Urine WBC 50-100 SEEN, Ur Squamous Epith Cells 0-5 SEEN, Urine Bacteria 2+, Urine Mucus 0 SEEN Micro: Microbiology 03/19/24 03:23 Sputum, Expectorated/Coughed Gram Stain - Final 03/18/24 09:52 Blood Culture (Wb) - Anticubital Left Bacteria Detection (PCR) - Final Staphylococcus epidermidis mecA Resistance Marker 03/18/24 09:52 Blood Culture (Wb) - Anticubital Left Blood Culture - Preliminary Staphylococcus epidermidis 03/18/24 22:34 Urine, Random Legionella Antigen - Final 03/18/24 22:34 Urine, Random Streptococcus pneumoniae Antigen (M - Final 03/18/24 15:41 Mucosa - Nasopharyngeal Respiratory Panel (PCR) - Final Rhythm Strip Rhythm Strip: Sinus Tach Rate: 129 Ectopy: PVC(s) (Occasional) Physical Exam Narrative alert and no apparent distress Constitutional Narrative: Patient exhibited some cognitive impairment, he did not know the year General Appearance: cooperative, well kempt and well developed Orientation / Consciousness: awake, oriented to person and oriented to place HEENT normocephalic, head/scalp atraumatic, hearing grossly normal bilaterally and moist oral mucous membranes Eyes PERRL, EOMs intact bilaterally and conjunctivae normal Neck supple, no JVD, thyroid normal and no carotid bruits General: trachea midline Resp normal respiratory effort, no retractions, no use of accessory muscles and clear to auscultation bilaterally Auscultation: Negative for rales, rhonchi or wheezes Cardio regular rate, regular rhythm, S1 normal heart sound, S2 normal heart sound, no murmurs, no rub and no gallops GI normal to inspection, nondistended, normoactive bowel sounds, soft to palpation, non-tender and non-distended Extremity no clubbing, cyanosis or edema Skin no rashes or lesions noted General Skin Exam: no breakdown Neuro CN's II-XII intact bilaterally, no focal motor deficits and no sensory deficits noted Sensorium / Orientation: awake, alert, oriented to person and oriented to place Speech: speech normal Psych Psych Narrative: Patient exhibits some mild cognitive impairment Assessment & Plan Assessment/Plan (1) Pneumonia: PLAN: Plan 1. Community-acquired pneumonia-patient was admitted to [facility] 3, he will be given IV cefepime and vancomycin, respiratory panel will be obtained, sputum culture will be obtained if possible, aerosol treatments will be given #2 COVID-19 infection-patient will remain on dexamethasone, he was placed on remdesivir #3 hypoxia secondary to #1 #2-pulse ox will be monitored, oxygen will be adjusted accordingly #4 metabolic encephalopathy-patient is a poor informant, he does know that he is in the hospital and he is oriented to self however, complicates care, management, recovery, and prognosis #5 C2 neck fracture treated with rigid cervical collar-onset November 2023, patient is not wearing a collar at this time-at his own choice #6 paroxysmal atrial fibrillation-it appears that the patient is not on anticoagulation due to fall risk, patient does have an IVC filter in place, there was notation in the medical records that patient was having hematuria and an IVC filter was placed. #7 obstipation-it appears patient has a past medical history of severe constipation with pseudoobstruction, I will place the patient on lactulose Total clinical time spent by myself addressing the patient's medical issues, reviewing all of his data, and collaborating with patient's care team: 35 minutes Charges/Coding Visit Charges Inpatient E&M: 97161 Subs Hosp L2
[2024-03-19] MEDS: 0.9% Saline Lock 10 ML Syringe IV (21:29)
[2024-03-19] MEDS: Lactulose 20 GM/30 ML UDC PO (21:32)
[2024-03-19] MEDS: Mirtazapine 15 MG Tablet 7.5 MG PO (21:32)
[2024-03-19] MEDS: Atorvastatin Calcium 10 MG Tablet 5 MG PO (21:33)
--- NOTE | 2024-03-19 23:29 | PCM.RX.CS ---
Consult Antibiotic Management Pharmacy has been consulted to manage selected antibiotic: Vancomycin Type of Intervention Type of Consult: Follow-up Labs Labs: Sodium 132 mmol/L (136-145) L 03/19/24 06:35 Potassium 3.7 mmol/L (3.5-5.1) 03/19/24 06:35 Chloride 103 mmol/L (98-107) 03/19/24 06:35 Carbon Dioxide 22.0 mmol/L (21.0-32.0) 03/19/24 06:35 Anion Gap 7 (5-15) 03/19/24 06:35 BUN 25 mg/dL (7-18) H 03/19/24 06:35 Creatinine 0.59 mg/dL (0.70-1.30) L 03/19/24 06:35 Est GFR (MDRD) Af Amer 168 mL/min (>60) 03/19/24 06:35 Est GFR (MDRD) Non-Af 139 mL/min (>60) 03/19/24 06:35 BUN/Creatinine Ratio 42.7 RATIO (10-20) H 03/19/24 06:35 Glucose 159 mg/dL (74-106) H 03/19/24 06:35 Vancomycin Trough 24.0 ug/mL (5.0-15.0) H 03/19/24 22:32 Microbiology Microbiology: Microbiology 03/19/24 03:23 Sputum, Expectorated/Coughed Gram Stain - Final 03/18/24 09:52 Blood Culture (Wb) - Anticubital Left Bacteria Detection (PCR) - Final Staphylococcus epidermidis mecA Resistance Marker 03/18/24 09:52 Blood Culture (Wb) - Anticubital Left Blood Culture - Preliminary Staphylococcus epidermidis 03/18/24 22:34 Urine, Random Legionella Antigen - Final 03/18/24 22:34 Urine, Random Streptococcus pneumoniae Antigen (M - Final 03/18/24 15:41 Mucosa - Nasopharyngeal Respiratory Panel (PCR) - Final Goal Trough Goal Trough: 15-20 mcg/mL Pharmacy Plan for Drug Dosing Pharmacy Plan for Drug Dosing: Pharmacy Service will continue to monitor and adjust dosing as required. TROUGH 24.0 @ 11 HOURS. HOLD DOSE AND DRAW RANDOM LEVEL ION 12 HOURS Follow-Up Labs Follow-Up Labs: Trough: Vancomycin Date/Time Labs Ordered Labs to be done on [date and time ordered]: 03/20 @ 1030
[2024-03-20] VITALS (7 sets, daily range): BP systolic 120–137; BP diastolic 67–84; PULSE 95–116; RESP 16–24; TEMP 36.3–36.9; O2SAT 93–97
[2024-03-20] MEDS: Acetaminophen 500 MG Tablet 1000 MG PO ×3 (05:20→22:15)
[2024-03-20] MEDS: Propafenone 150 MG Tablet 225 MG PO ×3 (05:20→22:15)
[2024-03-20] MEDS: Lactulose 20 GM/30 ML UDC PO ×2 (08:37→22:14)
[2024-03-20] MEDS: dexAMETHasone 4 MG Tablet 6 MG PO (08:37)
[2024-03-20] MEDS: Lidocaine 5% Patch 1 PATCH TOPICAL (08:38)
[2024-03-20] MEDS: Tamsulosin HCl 0.4 MG Capsule PO ×2 (08:38→22:15)
[2024-03-20] MEDS: Heparin Injection (Vial) 5,000 UNIT/ML VIAL 5000 UNIT SC ×2 (08:38→22:15)
[2024-03-20] MEDS: Polyethylene Glycol 3350 17 GM PACKET PO (08:39)
[2024-03-20] MEDS: Cefepime HCl 1 GM in 0.9% Normal Saline (50mL MB+) 50 ML IV ×2 (08:39→21:56)
[2024-03-20] MEDS: Senna/Docusate Sodium 1 Tablet 2 TABLET PO ×2 (08:40→22:15)
[2024-03-20] MEDS: Vancomycin Trough/Random Due 1 LAB MC (10:52)
[2024-03-20 10:53] LABS: Vancomycin, Random Level 4.9 ug/mL (0.0-15.0)
[2024-03-20] MEDS: Remdesivir 100 MG in 0.9% Normal Saline (250mL Bag) 230 ML 250 MG IV (11:04)
[2024-03-20] MEDS: Vancomycin IV 500 MG/100 ML BAG 100 MG IV (12:09)
--- NOTE | 2024-03-20 12:36 | CASEMGMT ---
Social Work- SW received notice that pt can return to [facility] when medically ready; precert is in process and expected to be obtained. Physician updated. Plan: WC; skilled level of care GREGG Correa
--- NOTE | 2024-03-20 14:20 | PHA.PHARE_ITS ---
Consult Antibiotic Management Pharmacy has been consulted to manage selected antibiotic: Vancomycin Type of Intervention Type of Consult: Follow-up Suspected Infection Suspected Infection: Pneumonia Prior Doses of Antibiotics Prior Doses of Antibiotics Received/Current Regimen: 03/18/24 2000mg of Vancomycin given at 1103 03/18/24 500mg given 2301 03/19/24 500mg given 1127 Labs Labs: Sodium 132 mmol/L (136-145) L 03/19/24 06:35 Potassium 3.7 mmol/L (3.5-5.1) 03/19/24 06:35 Chloride 103 mmol/L (98-107) 03/19/24 06:35 Carbon Dioxide 22.0 mmol/L (21.0-32.0) 03/19/24 06:35 Anion Gap 7 (5-15) 03/19/24 06:35 BUN 25 mg/dL (7-18) H 03/19/24 06:35 Creatinine 0.59 mg/dL (0.70-1.30) L 03/19/24 06:35 Est GFR (MDRD) Af Amer 168 mL/min (>60) 03/19/24 06:35 Est GFR (MDRD) Non-Af 139 mL/min (>60) 03/19/24 06:35 BUN/Creatinine Ratio 42.7 RATIO (10-20) H 03/19/24 06:35 Glucose 159 mg/dL (74-106) H 03/19/24 06:35 Vancomycin Trough 24.0 ug/mL (5.0-15.0) H 03/19/24 22:32 Random Vancomycin 4.9 ug/mL (0.0-15.0) 03/20/24 10:05 Microbiology Microbiology: Microbiology 03/18/24 10:28 Blood Culture (Wb) - Left Hand Blood Culture - Preliminary No growth in 48 hours. 03/19/24 03:23 Sputum, Expectorated/Coughed Gram Stain - Final 03/19/24 03:23 Sputum, Expectorated/Coughed Respiratory Culture - Preliminary Staphylococcus aureus 03/18/24 09:52 Blood Culture (Wb) - Anticubital Left Bacteria Detection (PCR) - Final Staphylococcus epidermidis mecA Resistance Marker 03/18/24 09:52 Blood Culture (Wb) - Anticubital Left Blood Culture - Pr eliminary Staphylococcus epidermidis 03/18/24 22:34 Urine, Random Legionella Antigen - Final 03/18/24 22:34 Urine, Random Streptococcus pneumoniae Antigen (M - Final 03/18/24 15:41 Mucosa - Nasopharyngeal Respiratory Panel (PCR) - Final Dosing Weight Weight used for dosin kg Goal Trough Goal Trough: 15-20 mcg/mL Pharmacy Plan for Drug Dosing Pharmacy Plan for Drug Dosin03/20/24 random Vancomycin level of 4.9 restart 500mg every 12 hours of Vancomycin Pharmacy Service will continue to monitor and adjust dosing as required. Follow-Up Labs Follow-Up Labs: Trough: Vancomycin Date/Time Labs Ordered Labs to be done on [date and time ordered]: 03/21/24 @ 5204
[2024-03-20 15:30] LABS: Platelet Estimate ADEQUATE (ADEQ)
[2024-03-20] MEDS: Calcium Carbonate 500 MG Tablet 1000 MG PO (16:59)
--- NOTE | 2024-03-20 18:40 | PCM.PN.HOSP ---
Reason for Visit Reason for Visit: Diagnoses Pneumonia, unspecified organism (03/18/24) Subjective Subjective Patient was seen and examined today, he is currently on room air, CT head of his cervical spine is no different from his CT that was done in December of last year. I talked with his neurosurgeon by phone today a Dr. Coles, he recommended permanent wearing of a rigid cervical collar, he understands that the patient may not be compliant with this but he states that the proper thing to do is to continuously wear the collar. I talk with the patient about this tonight in front of his son, patient does not want to wear the collar at all times. Objective Data Objective Data Vital Signs: Vital Signs Temp Pulse Resp BP Pulse Ox O2 Del Method O2 Flow Rate 98.5 F 109 H 18 122/84 H 96 Room Air 2 03/20/24 16:19 03/20/24 16:19 03/20/24 16:19 03/20/24 16:19 03/20/24 16:19 03/20/24 16:19 03/20/24 15:56 Oxygen Flow Rate (L/min) 2 Oxygen Delivery Method Room Air Weight: 75.206 kg Body Mass Index (BMI) 23.8 Intake & Output: Intake and Output for Last 24 Hours 03/18/24 03/19/24 03/20/24 23:59 23:59 23:59 Intake Total 3430 / 3430 800 / 800 850 / 850 Output Total 300 / 300 700 / 1050 1550 / 1550 Balance 3130 / 3130 100 / -250 -700 / -700 Lab / Micro Data 03/19/24 06:35 03/19/24 06:35 Labs: Laboratory Results - last 24 hr 03/19/24 06:35: Platelet Estimate ADEQUATE 03/19/24 22:32: Vancomycin Trough 24.0 H 03/20/24 10:05: Random Vancomycin 4.9 Micro: Microbiology 03/18/24 10:28 Blood Culture (Wb) - Left Hand Blood Culture - Preliminary No growth in 48 hours. 03/19/24 03:23 Sputum, Expectorated/Coughed Gram Stain - Final 03/19/24 03:23 Sputum, Expectorated/Coughed Respiratory Culture - Preliminary Staphylococcus aureus 03/18/24 09:52 Blood Culture (Wb) - Anticubital Left Bacteria Detection (PCR) - Final Staphylococcus epidermidis mecA Resistance Marker 03/18/24 09:52 Blood Culture (Wb) - Anticubital Left Blood Culture - Preliminary Staphylococcus epidermidis 03/18/24 22:34 Urine, Random Legionella Antigen - Final 03/18/24 22:34 Urine, Random Streptococcus pneumoniae Antigen (M - Final 03/18/24 15:41 Mucosa - Nasopharyngeal Respiratory Panel (PCR) - Final Radiography Diagnostic Testing: Radiology Impression Cervical Spine CT 03/19/24 19:22 IMPRESSION: Multilevel degenerative changes, as described above. 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 Electronically Signed: Brian Abrams MD at 20:36 EST , Rhythm Strip Rhythm Strip: Sinus Tach Rate: 129 Ectopy: PVC(s) (Occasional) Physical Exam Narrative alert and no apparent distress Constitutional Narrative: Patient exhibited some cognitive impairment, he did not know the year General Appearance: cooperative, well kempt and well developed Orientation / Consciousness: awake, oriented to person and oriented to place HEENT normocephalic, head/scalp atraumatic, hearing grossly normal bilaterally and moist oral mucous membranes Eyes PERRL, EOMs intact bilaterally and conjunctivae normal Neck supple, no JVD, thyroid normal and no carotid bruits General: trachea midline Resp normal respiratory effort, no retractions, no use of accessory muscles and clear to auscultation bilaterally Auscultation: Negative for rales, rhonchi or wheezes Cardio regular rate, regular rhythm, S1 normal heart sound, S2 normal heart sound, no murmurs, no rub and no gallops GI normal to inspection, nondistended, normoactive bowel sounds, soft to palpation, non-tender and non-distended Extremity no clubbing, cyanosis or edema Skin no rashes or lesions noted General Skin Exam: no breakdown Neuro CN's II-XII intact bilaterally, no focal motor deficits and no sensory deficits noted Sensorium / Orientation: awake, alert, oriented to person and oriented to place Speech: speech normal Psych Psych Narrative: Patient exhibits some mild cognitive impairment Assessment & Plan Assessment/Plan (1) Pneumonia: PLAN: Plan 1. Community-acquired pneumonia-patient will remain for now on his present antibiotic coverage #2 COVID-19 infection-patient will remain on dexamethasone, he is on remdesivir #3 hypoxia secondary to #1 #2-pulse ox will be monitored, oxygen will be adjusted accordingly #4 metabolic encephalopathy-patient is a poor informant, he does know that he is in the hospital and he is oriented to self however, complicates care, management, recovery, and prognosis #5 C2 neck fracture treated with rigid cervical collar-onset November 2023, patient is not wearing a collar at this time-at his own choice #6 paroxysmal atrial fibrillation-it appears that the patient is not on anticoagulation due to fall risk, patient does have an IVC filter in place, there was notation in the medical records that patient was having hematuria and an IVC filter was placed. #7 obstipation-it appears patient has a past medical history of severe constipation with pseudoobstruction, he is on lactulose Total clinical time spent by myself addressing the patient's medical issues, reviewing all of his data, and collaborating with patient's care team: 35 minutes Charges/Coding Visit Charges Inpatient E&M: 22567 Subs Hosp L2
[2024-03-20] MEDS: Mirtazapine 15 MG Tablet 7.5 MG PO (22:15)
[2024-03-20] MEDS: Atorvastatin Calcium 10 MG Tablet 5 MG PO (22:15)
[2024-03-21] VITALS (8 sets, daily range): BP systolic 104–125; BP diastolic 70–85; PULSE 84–101; RESP 16–20; TEMP 36.3–36.6; O2SAT 89–96
[2024-03-21] MEDS: Vancomycin IV 500 MG/100 ML BAG 100 MG IV (00:06)
[2024-03-21] MEDS: Propafenone 150 MG Tablet 225 MG PO ×2 (06:11→15:20)
[2024-03-21] MEDS: Acetaminophen 500 MG Tablet 1000 MG PO ×2 (06:12→15:21)
[2024-03-21] MEDS: Calcium Carbonate 500 MG Tablet 1000 MG PO (06:26)
[2024-03-21] MEDS: Tamsulosin HCl 0.4 MG Capsule PO (10:25)
[2024-03-21] MEDS: dexAMETHasone 4 MG Tablet 6 MG PO (10:25)
[2024-03-21] MEDS: Cefdinir 300 MG Capsule PO (10:25)
[2024-03-21] MEDS: Heparin Injection (Vial) 5,000 UNIT/ML VIAL 5000 UNIT SC (10:25)
[2024-03-21] MEDS: Remdesivir 100 MG in 0.9% Normal Saline (250mL Bag) 230 ML 250 MG IV (10:26)
[2024-03-21] MEDS: Lidocaine 5% Patch 1 PATCH TOPICAL (10:27)
--- NOTE | 2024-03-21 13:40 | CASEMGMT ---
[facility] has obtained auth to admit. SW updated. Wendy Damon DC Planning Asst.
--- NOTE | 2024-03-21 19:02 | PCM.PN.HOSP ---
Reason for Visit Reason for Visit: Diagnoses Pneumonia, unspecified organism (03/18/24) Subjective Subjective Patient was seen and examined today, he is still requiring supplemental oxygen at a low flow rate. Patient has 1 more day of remdesivir. If the patient remains medically stable tomorrow he will be transferred back to his skilled facility. Objective Data Objective Data Vital Signs: Vital Signs Temp Pulse Resp BP Pulse Ox O2 Del Method O2 Flow Rate 97.9 F 101 H 18 111/79 96 Nasal Cannula 2 03/21/24 15:03/21/24 15:03/21/24 17:00 03/21/24 15:03/21/24 15:03/21/24 17:00 03/21/24 17:00 Oxygen Flow Rate (L/min) 2 Oxygen Delivery Method Nasal Cannula Weight: 75.206 kg Body Mass Index (BMI) 23.8 Intake & Output: Intake and Output for Last 24 Hours 03/19/24 03/20/24 03/21/24 23:59 23:59 23:59 Intake Total 800 / 800 1100 / 1100 1550 / 1550 Output Total 700 / 1050 2100 / 2100 500 / 500 Balance 100 / -250 -1000 / -1000 1050 / 1050 Lab / Micro Data 03/19/24 06:35 03/19/24 06:35 Micro: Microbiology 03/19/24 03:23 Sputum, Expectorated/Coughed Gram Stain - Final 03/19/24 03:23 Sputum, Expectorated/Coughed Respiratory Culture - Final Staphylococcus aureus 03/18/24 10:28 Blood Culture (Wb) - Left Hand Blood Culture - Preliminary No growth in 48 hours. 03/18/24 09:52 Blood Culture (Wb) - Anticubital Left Bacteria Detection (PCR) - Final Staphylococcus epidermidis mecA Resistance Marker 03/18/24 09:52 Blood Culture (Wb) - Anticubital Left Blood Culture - Preliminary Staphylococcus epidermidis 03/18/24 22:34 Urine, Random Legionella Antigen - Final 03/18/24 22:34 Urine, Random Streptococcus pneumoniae Antigen (M - Final 03/18/24 15:41 Mucosa - Nasopharyngeal Respiratory Panel (PCR) - Final Rhythm Strip Rhythm Strip: Sinus Tach Rate: 129 Ectopy: PVC(s) (Occasional) Physical Exam Narrative alert and no apparent distress Constitutional Narrative: Patient exhibited some cognitive impairment, he did not know the year General Appearance: cooperative, well kempt and well developed Orientation / Consciousness: awake, oriented to person and oriented to place HEENT normocephalic, head/scalp atraumatic, hearing grossly normal bilaterally and moist oral mucous membranes Eyes PERRL, EOMs intact bilaterally and conjunctivae normal Neck supple, no JVD, thyroid normal and no carotid bruits General: trachea midline Resp normal respiratory effort, no retractions, no use of accessory muscles and clear to auscultation bilaterally Auscultation: Negative for rales, rhonchi or wheezes Cardio regular rate, regular rhythm, S1 normal heart sound, S2 normal heart sound, no murmurs, no rub and no gallops GI normal to inspection, nondistended, normoactive bowel sounds, soft to palpation, non-tender and non-distended Extremity no clubbing, cyanosis or edema Skin no rashes or lesions noted General Skin Exam: no breakdown Neuro CN's II-XII intact bilaterally, no focal motor deficits and no sensory deficits noted Sensorium / Orientation: awake, alert, oriented to person and oriented to place Speech: speech normal Psych Psych Narrative: Patient exhibits some mild cognitive impairment Assessment & Plan Assessment/Plan (1) Pneumonia: PLAN: Plan 1. Community-acquired pneumonia-patient will remain for now on his present antibiotic coverage #2 COVID-19 infection-patient will remain on dexamethasone, he was placed on remdesivir #3 hypoxia secondary to #1 #2-pulse ox will be monitored, oxygen will be adjusted accordingly #4 metabolic encephalopathy-patient is a poor informant, he does know that he is in the hospital and he is oriented to self however, complicates care, management, recovery, and prognosis #5 C2 neck fracture treated with rigid cervical collar-onset November 2023, patient is not wearing a collar at this time-at his own choice #6 paroxysmal atrial fibrillation-it appears that the patient is not on anticoagulation due to fall risk, patient does have an IVC filter in place, there was notation in the medical records that patient was having hematuria and an IVC filter was placed. #7 obstipation-it appears patient has a past medical history of severe constipation with pseudoobstruction, I will place the patient on lactulose Total clinical time spent by myself addressing the patient's medical issues, reviewing all of his data, and collaborating with patient's care team: 35 minutes Charges/Coding Visit Charges Inpatient E&M: 46908 Subs Hosp L2
[2024-03-22] VITALS (7 sets, daily range): BP systolic 101–112; BP diastolic 63–75; PULSE 86–99; RESP 16–20; TEMP 36.4–36.8; O2SAT 91–95
[2024-03-22] MEDS: 0.9% Saline Lock 10 ML Syringe IV ×2 (00:18→10:10)
[2024-03-22] MEDS: Heparin Injection (Vial) 5,000 UNIT/ML VIAL 5000 UNIT SC ×2 (00:19→08:59)
[2024-03-22] MEDS: Mirtazapine 15 MG Tablet 7.5 MG PO (00:19)
[2024-03-22] MEDS: Acetaminophen 500 MG Tablet 1000 MG PO ×3 (00:20→14:37)
[2024-03-22] MEDS: Propafenone 150 MG Tablet 225 MG PO ×3 (00:20→14:37)
[2024-03-22] MEDS: Tamsulosin HCl 0.4 MG Capsule PO ×2 (00:21→09:00)
[2024-03-22] MEDS: Atorvastatin Calcium 10 MG Tablet 5 MG PO (00:21)
[2024-03-22] MEDS: Cefdinir 300 MG Capsule PO ×2 (00:22→09:01)
[2024-03-22] MEDS: Calcium Carbonate 500 MG Tablet 1000 MG PO ×2 (00:47→09:04)
[2024-03-22] MEDS: traMADol 50 MG Tablet PO (06:19)
[2024-03-22] MEDS: Lidocaine 5% Patch 1 PATCH TOPICAL (08:58)
[2024-03-22] MEDS: dexAMETHasone 4 MG Tablet 6 MG PO (09:00)
[2024-03-22] MEDS: Remdesivir 100 MG in 0.9% Normal Saline (250mL Bag) 230 ML 250 MG IV (10:09)
--- NOTE | 2024-03-22 10:21 | SP.MBSS_ITS ---
Modified Barium Swallow Patient Information Study Date: 03/22/24 Study Time: 09:00 Direct Billable Minutes: 120 Total Minutes procedure & reportin Diagnosis: J18.9 - Pneumonia Referring Physician: Angel Luis Vásquez Reason for Referral: Objectively assess swallow function, assess risk for aspiration, and determine recommendations for least restrictive diet textures and compensatory strategies to improve safety of swallow. Medical History: An 88-year-old male was brought to the [facility] Emergency Department from [facility] with low oxygen saturation and complaints of abdominal pain that had persisted for several months. He was recently diagnosed with COVID-19 on March 14, 2024. A chest CT scan showed increased markings at both lung bases, suggestive of atelectasis or early infiltrates, with more pronounced findings on the right side, indicating pneumonia likely related to his history of oropharyngeal dysphagia. Previously, the patient had been in a Transitional Care Unit (TCU) before being discharged to an ECF following a neck fracture in November 2023, for which he required a permanent rigid collar. While in the TCU, he was under the care of a speech therapist for cognitive-linguistic impairment and oropharyngeal dysphagia. He was discharged to the ECF on a puree and nectar-thick liquid diet. He will now be admitted to [place] [address] for the management of pneumonia and his COVID-19 infection. Current Diet Ordered: Puree/Thin Liquids (at [facility] Soft/Thin Liquid) Dentition: Edentulous Mental Status: Impaired (baseline cognitive impairment) Respiratory Status: Oxygenating on Room Air Penetration-Aspiration Scale Penetration-Aspiration Scale: OBJECTIVE ASSESSMENT OF SWALLOW FUNCTION (QUANTITATIVE ? PER TRIAL): PENETRATION / ASPIRATION SCALE (LEDESMA): 1 = does not enter airway 2 = enters airway/above vocal folds/ejected 3 = enters airway/above vocal folds/not ejected 4 = enters airway/contacts vocal folds/ejected 5 = enters airway/contacts vocal folds/not ejected 6 = enters airway/below vocal folds/ejected 7 = enters airway/below vocal folds/not ejected despite effort 8 = enters airway/below vocal folds/no effort VIDEOFLOROSCOPIC SCALE SCORE (LEDESMA): Grade I = aspiration of material that has penetrated into the laryngeal vestibule, intact cough reflex Grade II = aspiration < 10 % of the bolus, intact cough reflex Grade III = aspiration of < 10 % of the bolus, reduced cough reflex or aspiration of > 10 % of the bolus, intact cough reflex Grade IV = aspiration of > 10 % of the bolus, reduced cough reflex Penetration-Aspiration Scale Score [place] Thick Liquid via teaspoon: Result: 1= does not enter airway Pudding: Result: 1= does not enter airway [place] Thick Liquid via small single sip: cup: Result: 1= does not enter airway [place] Thick Liquid via small single sip: cup Trial 2: Result: 1= does not enter airway Thin Liquid via small single sip: cup: Result: 1= does not enter airway Thin Liquid via small single sip: cup Trial 2: Result: 2= enter airway/above vocal folds/ejected Thin Liquid via single sip: straw: Result: 1= does not enter airway Thin Liquid via sequential sips:straw: Result: 5= enters airways/contacts vocal folds/not ejected Thin Liquid via small single sip: cup Trial 3: Result: 1= does not enter airway Thin Liquid via sequential sips: cup: Result: 2= enter airway/above vocal folds/ejected Thin Liquid via small single sip: cup Trial 4: Result: 1= does not enter airway Oral Phase Labial Seal: Interlabial escape, no progression to anterior lip Tongue Control During Bolus Hold: Posterior escape of less than half of bolus Bolus Transport/Lingual Motion: Repetitive/disorganized tongue motion Oral Residue: Residue collection on oral structures Pharyngeal Phase Initiation of Pharyngeal Swallow: No visible initiation at any location Soft Palate Elevation: No bolus between soft palate and pharyngeal wall Laryngeal Elevation: Partial superior movement thyroid cart/partial apprx aryt- epig petiole Anterior Hyoid Excursion: Partial anterior movement Epiglottic Movement: No inversion Laryngeal Vestibule Closure at Height of Swallow: Incomplete; narrow column of air/contrast in laryngeal vestibule Pharyngeal Stripping Wave: Present - diminished Pharyngoesophageal Segment Opening: Parital distension and partial duration; parital obstruction of flow Tongue Base Retraction: Wide column of contrast between tongue base & post. pharyngeal wall Pharyngeal Residue: Collection of residue within or on pharyngeal structures Esophageal Phase Esophageal Clearance: Esophageal retention w/ retrograde flow below pha ryngoesophageal seg. Diagnosis/Impression Diagnosis: mild to moderate oropharyngeal dysphagia R13.12 Impression: The patient presents with mild to moderate oropharyngeal dysphagia. During the oral phase, the patient exhibits poor bolus control with premature spillage of less than half of the bolus prior to the onset of swallowing. There is repetitive tongue movement with delayed AP transit, contributing to oral residue. This residue is observed post-swallow, often spilling into the vallecula. The patient has severely impaired mastication, as observed during a bedside evaluation. He was previously placed on a puree diet due to his inability to effectively masticate even minced and moist textures, often spitting out pieces of food. During a recent bedside swallow evaluation, the patient was downgraded to a puree diet after being unable to tolerate ground sausage and diced peaches, requiring manual removal of the bolus from the oral cavity. During the MBSS, the patient chewed-up medications were found lingering in his oral cavity, which the patient admitted to chewing for over 30 minutes. The patient has no teeth and does not wear dentures due to poor fit. In the pharyngeal phase, the patient shows delayed onset of swallowing, resulting in penetration to the vocal cords with larger sips taken through a straw. Airway closure is reduced due to decreased laryngeal elevation, incomplete closure, and absent epiglottic inversion. The patient also demonstrates poor pharyngeal motility, with moderate residues remaining in the vallecula and pyriform sinuses after swallowing. This is attributed to decreased posterior pharyngeal wall contraction, a wide tongue base, and poor upper esophageal sphincter opening. Trace amounts of contrast were noted on the anterior portion of the aryepiglottic folds. Additionally, the patient presents with esophageal deficits, including retention in the upper to mid esophagus and noted retrograde flow. Recommendations Diet: Puree Textures and Thin Liquids Comment: Intermittent Cough and Re-Swallow Compensatory Strategies: Small Bites, Small Sips, No Straws, Slow Rate, Feed only when alert, Multiple Swallows, Alternate bites/solids and sips/liquids, Sitting upright and Remain sitting upright for 30 minutes after PO intake Supervision: Assist as needed and Distant Supervision Recommend Repeat Modified Barium Swallow: No Need for Skilled Speech Therapy Services: Yes Comment: The patient would benefit from skilled speech therapy to assess swallow function, provide instruction on compensatory swallowing strategies, and implement targeted oropharyngeal strengthening exercises. These interventions will focus on improving bolus manipulation and control, enhancing tongue base retraction, increasing laryngeal elevation and closure, strengthening pharyngeal wall contraction, and optimizing upper esophageal sphincter opening. Recommended Referrals: GI Consult Education Completed: 1. Described result of evaluation. and 2. Pt understands evaluation & agrees with goals and treatment plan. Status Active ST Patient: Active Contact Information [facility] Speech Therapy:: Cassandra Cannon M.A. [facility]3]-EQUIP MAINT ENG Speech-Language Pathologist [place] [address] [place] [address] [email or web address] [phone]
--- NOTE | 2024-03-22 13:14 | PCM.TXEXTCAR ---
Diet Diet Order/Speech Therapy: 03/18/24 15:00 Diet: Regular - General Food consistency:: Pureed Liquid Consistency:: Regular/Thin Diet Comments: no straws, meds in pudding, direct supervision Routine Orders/Code Status Code Status: DNRCC-A (No intubation) DC O2, CPAP, BIPAP needs Home O2 Discharge instructions: No Wound(s) coccyx: Wound Type: Pressure Injury Therapies Weight Bearing: Full weight bearing Physical Therapy: Eval and Treat Occupational Therapy: Eval and Treat Speech Therapy: Eval and Treat Problem/Diagnosis (1) Pneumonia: Status: Acute Code(s): J18.9 - Pneumonia, unspecified organism Plan 1. Community-acquired pneumonia-patient will remain for now on his present antibiotic coverage #2 COVID-19 infection-patient will remain on dexamethasone, he was placed on remdesivir #3 hypoxia secondary to #1 #2-pulse ox will be monitored, oxygen will be adjusted accordingly #4 metabolic encephalopathy-patient is a poor informant, he does know that he is in the hospital and he is oriented to self however, complicates care, management, recovery, and prognosis #5 C2 neck fracture treated with rigid cervical collar-onset November 2023, patient is not wearing a collar at this time-at his own choice #6 paroxysmal atrial fibrillation-it appears that the patient is not on anticoagulation due to fall risk, patient does have an IVC filter in place, there was notation in the medical records that patient was having hematuria and an IVC filter was placed. #7 obstipation-it appears patient has a past medical history of severe constipation with pseudoobstruction, I will place the patient on lactulose Total clinical time spent by myself addressing the patient's medical issues, reviewing all of his data, and collaborating with patient's care team: 35 minutes Allergies/Procedures Done in Hospital Allergies Penicillins Allergy (Mild, Verified 03/18/24 08:03) Rash Procedures: None Type of Care/Length of Stay Estimated LOS: Convalescent Care Less Than 30 days Type of Care Needed: Skilled Rehab Potential: Good Prognosis: Good Additional Orders/Day of Discharge Day of Discharge: 03/22/24 Dietary and Speech Recommendations Dietitian Recommendations/Changes: Continue Regular diet to optimize oral intakes. Will order Presley BID with breakfast and dinner to promote wound healing. Discharge Plan Admission Admit Date/Time: 03/18/24 12:27 Primary Reason for Your Visit: covid 19, pneumonia Attending Provider: Angel Luis Vásquez Primary Care Provider: Rayo Lanza Discharge Orders/Prescriptions Prescriptions: New dexamethasone 4 mg Tablet 6 mg PO DAILYCM Qty: 0 0RF Rx Instructions: Administer for 5 more doses starting 03/23/2024 then discontinue Continued alendronate 70 mg tablet 70 mg PO QWEEK calcium citrate 250 mg calcium tablet 500 mg PO BID Acidophilus Capsule 10 mg PO DAILY vit C-E-zinc hj-ngak-xlx-zeax 250 mg-200 unit -12.5 mg-1 mg capsule 2 cap PO BID propafenone 225 mg tablet 225 mg PO TID atorvastatin 10 mg Tablet 5 mg PO QHS Qty: 0 0RF sennosides-docusate sodium [Stimulant Laxative Plus] 8.6-50 mg Tablet 2 tab PO BID Qty: 0 0RF tramadol 50 mg Tablet 50 mg PO Q6H PRN PRN (Reason: Pain Score 1-5 Or Pre Pt/Ot) 3 Days Qty: 12 0RF acetaminophen 500 mg Tablet 1,000 mg PO Q8 Qty: 0 0RF lidocaine 5 % Adhesive Patch,Medicated 1 patch topical DAILY Qty: 0 0RF Protocol: *Topical Application Instructions APPLICATION INSTRUCTIONS: Posterior thoracic spine without removing c collar. magnesium citrate Solution 300 ml PO DAILY PRN (Reason: Constipation) Qty: 0 0RF mirtazapine 15 mg Tablet 7.5 mg PO QHS Qty: 0 0RF ondansetron 4 mg Tablet,Disintegrating 8 mg PO Q8H PRN PRN (Reason: Nausea/Vomiting) Qty: 0 0RF [place] Nasal 0.65 % Aerosol,[place] 2 spray NASAL Q1H PRN (Reason: NASAL DRYNESS) Qty: 0 0RF lactulose 20 gram/30 mL Solution 20 g PO BID Qty: 0 0RF nitroglycerin 0.4 mg Tablet, Sublingual 0.4 mg sublingual Q5M PRN (Reason: Cardiac/Chest Pain) Qty: 0 0RF polyethylene glycol 3350 17 gram/dose powder 17 g PO DAILY Qty: 119 0RF tamsulosin 0.4 mg capsule 0.4 mg PO BID Discontinued dexamethasone 4 mg tablet 4 mg PO BID promethazine 25 mg suppository 25 mg NE Q6H PRN (Reason: nausea and vomiting) Referrals / Follow Up: Rayo Lanza DO [Primary Care Provider] - Disposition Disposition (needs filled in before D/C Order can be placed): [facility]
--- NOTE | 2024-03-22 13:27 | PCM.DC.SUM ---
Providers Date of Admission: 03/18/24 Date of Discharge: 03/22/24 Primary Care Physician: Dr. Rayo Lanza, Reason For Visit: PNEUMONIA Diagnosis Discharge Diagnosis (1) Pneumonia: Status: Acute Code(s): J18.9 - Pneumonia, unspecified organism Plan 1. Community-acquired pneumonia-patient will remain for now on his present antibiotic coverage #2 COVID-19 infection-patient will remain on dexamethasone, he was placed on remdesivir #3 hypoxia secondary to #1 #2-pulse ox will be monitored, oxygen will be adjusted accordingly #4 metabolic encephalopathy-patient is a poor informant, he does know that he is in the hospital and he is oriented to self however, complicates care, management, recovery, and prognosis #5 C2 neck fracture treated with rigid cervical collar-onset November 2023, patient is not wearing a collar at this time-at his own choice #6 paroxysmal atrial fibrillation-it appears that the patient is not on anticoagulation due to fall risk, patient does have an IVC filter in place, there was notation in the medical records that patient was having hematuria and an IVC filter was placed. #7 obstipation-it appears patient has a past medical history of severe constipation with pseudoobstruction, I will place the patient on lactulose Total clinical time spent by myself addressing the patient's medical issues, reviewing all of his data, and collaborating with patient's care team: 35 minutes Medications at Discharge Home Medications Lactobacillus acidophilus (Acidophilus capsule) 10 mg PO DAILY supplement 12/12/23 alendronate 70 mg tablet 70 mg PO QWEEK bone health 12/12/23 calcium citrate 500 mg PO BID supplement 12/12/23 propafenone 225 mg tablet 225 mg PO TID AFIB 12/12/23 vit C 250 mg-vit E 200 unit-zinc ox 12.5 vm-[id number]-[id number]-zeax capsule 2 cap PO BID supplement 12/12/23 nitroglycerin 0.4 mg sublingual tablet 0.4 mg sublingual Q5M PRN Cardiac/Chest Pain #0 tabs 12/20/23 polyethylene glycol 3350 17 gram/dose oral powder 17 g PO DAILY bowels #119 grams 12/20/23 acetaminophen 500 mg tablet 1,000 mg (2 x 500 mg) PO Q8 #0 tabs 01/16/24 atorvastatin 10 mg tablet 5 mg (1/2 x 10 mg) PO QHS #0 tabs 01/16/24 lactulose 20 gram/30 mL oral solution 20 g (30 mL) PO BID #0 mL 01/16/24 lidocaine 5 % topical patch 1 patch topical DAILY #0 ea 01/16/24 magnesium citrate 300 ml PO DAILY PRN Constipation #0 mL 01/16/24 mirtazapine 15 mg tablet 7.5 mg (1/2 x 15 mg) PO QHS #0 tabs 01/16/24 ondansetron 4 mg disintegrating tablet 8 mg (2 x 4 mg) PO Q8H PRN PRN Nausea/Vomiting #0 tabs 01/16/24 sennosides 8.6 mg-docusate sodium 50 mg tablet (Stimulant Laxative Plus) 2 tab PO BID #0 tabs 01/16/24 sodium chloride 0.65 % nasal spray aerosol (Deep Sea Nasal) 2 spray NASAL Q1H PRN NASAL DRYNESS #0 mL 01/16/24 tramadol 50 mg tablet 50 mg PO Q6H PRN PRN Pain Score 1-5 Or Pre Pt/Ot 3 days #12 tabs 01/16/24 tamsulosin 0.4 mg capsule 0.4 mg PO BID 03/18/24 dexamethasone 4 mg tablet 6 mg (1.5 x 4 mg) PO DAILYCM #0 tabs 03/22/24 Hospital Course Operations None Procedures None Summary of Care Provided Minutes Spent on Discharge: 32 Hospital Course: This 88-year-old white male presented to the emergency room [facility] from a local [facility] with complaints of abdominal pain over the last several months and was noted to have a low pulse ox at the facility. Patient was recently diagnosed with COVID-19 infection on 03/14/2024 but only had 2 doses of dexamethasone. He had not been placed on Paxlovid due to the fact that had not arrived at the facility for administration to the patient. Patient has a history of cognitive impairment, he had a neck fracture in November 2023 and had been in his facility for quite some time. Workup in the emergency room showed an elevated white blood cell count of 25.8, sodium was low at 129 and glucose was 203. Patient had a lactic acid of 5.8, patient was noted to have a moderate amount of fecal material in the colon with distention of the colon. CT of the chest was obtained showing increased markings of both lung bases suggestive of atelectasis and/or early infiltrates more prominent at the right lung base. Patient was on 3 to 4 L initially and this was weaned to room air while he was in the emergency room at rest. Patient was admitted to [place] [id number] for pneumonia and COVID-19 infection, he was given cefepime and vancomycin and he was placed on remdesivir and dexamethasone. Patient's sputum culture grew out methicillin sensitive Staph aureus, I obtained a CT of his neck which was unchanged from the CT obtained in 2023, I talked with his neurosurgeon about the CT results, he advised the patient permanently where a stiff neck collar-patient did not want to do this however and knew the risks of not wearing 1. I discussed this also with the patient's son who is in the room 1 day at the time of my examination. Patient's medical condition stabilized, on 03/22/2024, he was able to return back to his extended care facility in stable condition-he was seen and examined on that date:alert and no apparent distress Constitutional Narrative: Patient exhibited some cognitive impairment, he did not know the year General Appearance: cooperative, well kempt and well developed Orientation / Consciousness: awake, oriented to person and oriented to place HEENT normocephalic, head/scalp atraumatic, hearing grossly normal bilaterally and moist oral mucous membranes Eyes PERRL, EOMs intact bilaterally and conjunctivae normal Neck supple, no JVD, thyroid normal and no carotid bruits General: trachea midline Resp normal respiratory effort, no retractions, no use of accessory muscles and clear to auscultation bilaterally Auscultation: Negative for rales, rhonchi or wheezes Cardio regular rate, regular rhythm, S1 normal heart sound, S2 normal heart sound, no murmurs, no rub and no gallops GI normal to inspection, nondistended, normoactive bowel sounds, soft to palpation, non-tender and non-distended Extremity no clubbing, cyanosis or edema Skin no rashes or lesions noted General Skin Exam: no breakdown Neuro CN's II-XII intact bilaterally, no focal motor deficits and no sensory deficits noted Sensorium / Orientation: awake, alert, oriented to person and oriented to place Speech: speech normal Psych Psych Narrative: Patient exhibits some mild cognitive impairment Weight / BMI Weight Weight: 75.206 kg Body Mass Index (BMI) 23.8 ABG / Lab / Microbiology Data 03/19/24 06:35 03/19/24 06:35 Microbiology: Microbiology 03/18/24 10:28 Blood Culture (Wb) - Left Hand Blood Culture - Final No growth in 5 days. 03/18/24 09:52 Blood Culture (Wb) - Anticubital Left Bacteria Detection (PCR) - Final Staphylococcus epidermidis mecA Resistance Marker 03/18/24 09:52 Blood Culture (Wb) - Anticubital Left Blood Culture - Final Staphylococcus epidermidis 03/22/24 09:15 Stool Enteric Bacteriology - Final 03/22/24 09:15 Stool Clostridioides difficile (PCR) - Final 03/19/24 03:23 Sputum, Expectorated/Coughed Gram Stain - Final 03/19/24 03:23 Sputum, Expectorated/Coughed Respiratory Culture - Final Staphylococcus aureus 03/18/24 22:34 Urine, Random Legionella Antigen - Final 03/18/24 22:34 Urine, Random Streptococcus pneumoniae Antigen (M - Final 03/18/24 15:41 Mucosa - Nasopharyngeal Respiratory Panel (PCR) - Final D/C Instructions DC O2, CPAP, BIPAP Needs Home O2 Discharge instructions: No Meaningful Use Info Meaningful Use Meaningful Use Diagnoses (Choose all that apply): None applicable Ischemic Stroke Statin Dosing Therapy Reference: STATIN DOSE THERAPY REFERENCE: * Patients > 75 years receive moderate or high dose statin therapy. * Patients 75 years or YOUNGER should receive HIGH intensity statin dose unless contraindicated. You will be required to document reason for non-treatment if statin daily dose does not meet guidelines. HIGH DOSE STATIN THERAPY DAILY Atorvastatin > than or = to 40 mg Rosuvastatin > than or = to 20 mg Amlodipine + Atorvastatin > than or = to 2.5/40 mg Ezetimibe + Simvastatin 10/80 mg Simvastatin 80mg Discharge Plan Admission Admit Date/Time: 03/18/24 12:27 Primary Reason for Your Visit: covid 19, pneumonia Attending Provider: Angel Luis Vásquez Primary Care Provider: Rayo Lanza Discharge Orders/Prescriptions Prescriptions: New dexamethasone 4 mg Tablet 6 mg PO DAILYCM Qty: 0 0RF Rx Instructions: Administer for 5 more doses starting 03/23/2024 then discontinue Continued alendronate 70 mg tablet 70 mg PO QWEEK calcium citrate 250 mg calcium tablet 500 mg PO BID Acidophilus Capsule 10 mg PO DAILY vit C-E-zinc tg-scjg-hrm-zeax 250 mg-200 unit -12.5 mg-1 mg capsule 2 cap PO BID propafenone 225 mg tablet 225 mg PO TID atorvastatin 10 mg Tablet 5 mg PO QHS Qty: 0 0RF sennosides-docusate sodium [Stimulant Laxative Plus] 8.6-50 mg Tablet 2 tab PO BID Qty: 0 0RF tramadol 50 mg Tablet 50 mg PO Q6H PRN PRN (Reason: Pain Score 1-5 Or Pre Pt/Ot) 3 Days Qty: 12 0RF acetaminophen 500 mg Tablet 1,000 mg PO Q8 Qty: 0 0RF lidocaine 5 % Adhesive Patch,Medicated 1 patch topical DAILY Qty: 0 0RF Protocol: *Topical Application Instructions APPLICATION INSTRUCTIONS: Posterior thoracic spine without removing c collar. magnesium citrate Solution 300 ml PO DAILY PRN (Reason: Constipation) Qty: 0 0RF mirtazapine 15 mg Tablet 7.5 mg PO QHS Qty: 0 0RF ondansetron 4 mg Tablet,Disintegrating 8 mg PO Q8H PRN PRN (Reason: Nausea/Vomiting) Qty: 0 0RF Deep Sea Nasal 0.65 % Aerosol,[place] 2 spray NASAL Q1H PRN (Reason: NASAL DRYNESS) Qty: 0 0RF lactulose 20 gram/30 mL Solution 20 g PO BID Qty: 0 0RF nitroglycerin 0.4 mg Tablet, Sublingual 0.4 mg sublingual Q5M PRN (Reason: Cardiac/Chest Pain) Qty: 0 0RF polyethylene glycol 3350 17 gram/dose powder 17 g PO DAILY Qty: 119 0RF tamsulosin 0.4 mg capsule 0.4 mg PO BID Discontinued dexamethasone 4 mg tablet 4 mg PO BID promethazine 25 mg suppository 25 mg CO Q6H PRN (Reason: nausea and vomiting) Referrals / Follow Up: Rayo Lanza DO [Primary Care Provider] - Disposition Disposition (needs filled in before D/C Order can be placed): [facility] Facility Charges/Coding Visit Charges Inpatient E&M: 47137 Disch Hosp >30min
--- NOTE | 2024-03-22 14:08 | CASEMGMT ---
Social Work Precert has been obtained.? Physician updated and pt is ready for discharge today.? DCA notified of discharge. Final discharge arrangements and notification to patient/family as per discharge workforce planning analyst.? ? Disposition:[facility]?, skilled level of care under convalescent stay. GREGG Correa
--- NOTE | 2024-03-22 14:15 | CASEMGMT ---
Discharge Planning Discharge orders, signed med list, and transport time sent to [facility]. Physicians will transport patient by wheelchair at 5p. Nursing, SW, and pts daughter/poa (Hannah) updated. Wendy Damon DC Planning Asst.
== END 2024-03-22 18:45 | disposition skilled nursing facility (03) | DRG 871 ==
LOC: ED 12:26 → MS3 14:41
PROVIDERS: Admitting Provider Internal Medicine; Emergency Provider Emergency Medicine; Visit Provider Internal Medicine
DX: A41.01 Sepsis due to Methicillin susceptible Staphylococcus aureus (principal); U07.1 COVID-19; J15.211 Pneumonia due to Methicillin susceptible Staphylococcus aureus; G93.41 Metabolic encephalopathy; Z66 Do not resuscitate; E03.9 Hypothyroidism, unspecified; I48.0 Paroxysmal atrial fibrillation; E78.5 Hyperlipidemia, unspecified; I25.10 Atherosclerotic heart disease of native coronary artery without angina pectoris; K59.00 Constipation, unspecified; S12.100D Unspecified displaced fracture of second cervical vertebra, subsequent encounter for fracture with routine healing; N40.1 Benign prostatic hyperplasia with lower urinary tract symptoms; R33.8 Other retention of urine; R73.9 Hyperglycemia, unspecified; R53.81 Other malaise; R09.02 Hypoxemia; Z79.891 Long term (current) use of opiate analgesic; Z79.83 Long term (current) use of bisphosphonates; Z79.899 Other long term (current) drug therapy
CPT/HCPCS: 36415; 36600; 71250; 72125; 74022; 74230; 80048; 80053; 80202; 81001; 82803; 83605; 85025; 87040; 87070; 87077; 87149; 87186; 87205; 87449; 87493; 87506; 87633; 92610; 92611; 93005; 94640; 97110; 97116; 97162; 97166; 97530; 97535; 99285; A4216; J0248

== ENCOUNTER → 2024-04-30 04:00 | Outpatient (REF) | payer MEDICARE, SELFPAY ==
[2024-04-30 09:09] LABS: Hematocrit 37.9 % (40-54); Hemoglobin 12.2 g/dL (13.0-16.5); Mean Corp Hgb Conc 32.2 g/dL (32-36); Mean Corpuscular Hgb 31.3 pg (27.0-32.0); Mean Corpuscular Volume 97.2 fL (80-94); Platelet Count 243 K/mm3 (150-450); RBC Distribution Width CV 13.7 % (11.6-14.6)
[2024-04-30 18:54] LABS: Anion Gap 8 (5-15); BUN 6 mg/dL (4-19); BUN/Creat Ratio 10.9 RATIO (10-20); Carbon Dioxide 25.5 mmol/L (22.0-29.0); Chloride 105 mmol/L (96-108); Creatinine, Serum 0.6 mg/dL (0.8-1.3); EST Glomerular Filtration Rate 94 (>60); Glucose 97 mg/dL (70-99); Potassium 3.9 mmol/L (3.3-5.1); Sodium Level 139 mmol/L (133-145)
== END ==
LOC: OLS.WCC 04:00
PROVIDERS: Referring Provider Family Medicine; Visit Provider Family Medicine
DX: E78.5 Hyperlipidemia, unspecified (principal); Z79.899 Other long term (current) drug therapy
CPT/HCPCS: 36415; 80048; 85027

== ENCOUNTER → 2024-05-20 | Outpatient (REF) | payer MEDICARE, SELFPAY ==
[2024-05-20 09:35] LABS: International Normalized Ratio 1.4; Prothrombin Time (Protime)PT. 17.3 SECONDS (11.7-14.9)
== END ==
LOC: OLS.WCC 05:00
PROVIDERS: Visit Provider Family Medicine
DX: Z79.01 Long term (current) use of anticoagulants (principal)
CPT/HCPCS: 36415; 85610

== ENCOUNTER → 2024-05-28 | Outpatient (REF) | payer MEDICARE, SELFPAY ==
[2024-05-28 09:40] LABS: International Normalized Ratio 1.4; Prothrombin Time (Protime)PT. 17.4 SECONDS (11.7-14.9)
== END ==
LOC: OLS.WCC 05:00
PROVIDERS: Visit Provider Family Medicine
DX: I48.91 Unspecified atrial fibrillation (principal); Z79.899 Other long term (current) drug therapy
CPT/HCPCS: 36415; 85610

== ENCOUNTER → 2024-05-29 | Outpatient (REF) | payer MEDICARE, SELFPAY ==
[2024-05-29 08:24] LABS: Hemoglobin 13.2 g/dL (13.0-16.5); Mean Corpuscular Volume 96.9 fL (80-94); Mean Platelet Vol. 10.9 fl (6.2-12.0); Platelet Count 187 K/mm3 (150-450); RBC Distribution Width CV 13.7 % (11.6-14.6); RBC Distribution Width SD 48.6 fl (35.1-43.9); Red Blood Count 4.13 M/mm3 (4.6-6.2); White Blood Count 7.8 K/mm3 (4.4-11.0)
[2024-05-29 09:52] LABS: Anion Gap 9 (5-15); BUN 6 mg/dL (4-19); BUN/Creat Ratio 9.7 RATIO (10-20); Calcium,Total 9.1 mg/dL (7.6-11.0); Carbon Dioxide 26.4 mmol/L (21.0-32.0); Chloride 101 mmol/L (98-108); Creatinine, Serum 0.63 mg/dL (0.70-1.20); EST Glomerular Filtration Rate 91 (>60); Glucose 106 mg/dL (70-99); Potassium 4.2 mmol/L (3.3-5.1); Sodium Level 136 mmol/L (133-145)
== END ==
LOC: OLS.WCC 05:00
PROVIDERS: Visit Provider Family Medicine
DX: I25.10 Atherosclerotic heart disease of native coronary artery without angina pectoris (principal); G93.41 Metabolic encephalopathy; Z79.899 Other long term (current) drug therapy
CPT/HCPCS: 36415; 80048; 85027

== ENCOUNTER → 2024-06-03 | Outpatient (REF) | payer MEDICARE, SELFPAY ==
[2024-06-03 09:40] LABS: International Normalized Ratio 2.2; Prothrombin Time (Protime)PT. 25.3 SECONDS (11.7-14.9)
== END ==
LOC: OLS.WCC 05:00
PROVIDERS: Visit Provider Family Medicine
DX: I48.91 Unspecified atrial fibrillation (principal); Z79.899 Other long term (current) drug therapy
CPT/HCPCS: 36415; 85610

== ENCOUNTER → 2024-06-11 | Outpatient (REF) | payer MEDICARE, SELFPAY ==
[2024-06-11 09:04] LABS: International Normalized Ratio 1.9; Prothrombin Time (Protime)PT. 22.6 SECONDS (11.7-14.9)
== END ==
LOC: OLS.WCC 05:00
PROVIDERS: Visit Provider Family Medicine
DX: Z79.01 Long term (current) use of anticoagulants (principal)
CPT/HCPCS: 36415; 85610